=== PATIENT | male | born 1955 | race Caucasian/White ===

== ENCOUNTER → 2017-07-04 | Outpatient (CLI) | payer OTHER ==
[~2017-07-04] MED LIST: ALBU5SOL10 IH; ASP325T; ASP325TEC PO; ASP81CT; ASP81TEC PO; FLUT1DIS26 IH; FRSM40T; FURO-124 PO; FURO80TA3; LEVO500T69 PO; METH4TAB PO; METO-333 PO; MTP25TSR; PANT40TA PO; PRAV40TA PO; PRV20T PO; ROSU20TA14 PO; SIMV40TA2; SIMVASTATIN; TICA90TA PO
== END ==
LOC: CARD 08:36
PROVIDERS: ATTEND Physician Assistant
DX: I25.10 Atherosclerotic heart disease of native coronary artery without angina pectoris (principal); I65.23 Occlusion and stenosis of bilateral carotid arteries; I10 Essential (primary) hypertension; E78.2 Mixed hyperlipidemia
CPT/HCPCS: 93306

== ENCOUNTER → 2017-07-06 | Outpatient (CLI) | payer OTHER ==
[~2017-07-06] VITALS: Ht 172.7 cm; Wt 105.2 kg
[~2017-07-06] MED LIST changes: +CATHETER FLUSH 10 ML SYR IV PRN
[2017-07-06 12:51] VITALS: BP 115/70
[2017-07-06 13:04] VITALS: BP 122/66
[2017-07-06 13:15] VITALS: BP 211/90
[2017-07-06 13:18] VITALS: BP 221/87
[2017-07-06 13:21] VITALS: BP 217/62
[2017-07-06 13:25] VITALS: BP 167/86
--- NOTE | 2017-07-07 08:45 | STRESS TEST ---
DATE OF SERVICE: 07/06/2017 EXERCISE MYOVIEW STRESS TEST: Baseline heart rate is 72. Baseline blood pressure 115/70, baseline EKG is sinus rhythm with no ischemic changes. Referring physician is Dr. Ayala. IN SUMMARY: The patient was injected with 10.2 mCi of technetium-99 Myoview and the resting images were obtained. Then, the patient started exercising with a baseline heart rate, blood pressure and EKG mentioned above. At minute 5 patient was injected with 32.8 mCi of technetium-99 Myoview. He was able to exercise for a total of 6 minutes on standard Bonifacio protocol with peak exercise level EKG was showing [address] depression in V4, V5; [address] depression in V3 and V6; [address] depression in lead 2 and 3. During recovery, heart rate, blood pressure returned to baseline. EKG continued to have nondiagnostic changes. Blood pressure at the end of the test was 167/86. The resting and stressed images were reviewed and compared in the short axis, horizontal long axis, and vertical long axis views. Review of the images showed diaphragmatic attenuation with reversible ischemia involving the mid to apical anterolateral and inferolateral wall. SSS is 3, SDS three, TID value 0.87. On the gaited images, the left ventricle appeared to be normal size with normal contractility. Calculated ejection fraction 66%. CONCLUSION: 1. Fair exercise tolerance a total of 6 minutes on standard Bonifacio protocol, total of 7.3 METS achieving 92% of maximum expected heart rate. 2. Severe hypertensive response to exercise returned to baseline during recovery. 3. Positive EKG finding with peak exercise level suggestive of ischemia with nondiagnostic changes during recovery. 4. Mild reversible ischemia involving the mid to apical anterolateral and inferolateral wall. 5. Normal left ventricular size with normal contractility. Calculated ejection fraction 66%. 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
== END ==
LOC: CARD 11:10
PROVIDERS: ATTEND Physician Assistant
DX: I25.10 Atherosclerotic heart disease of native coronary artery without angina pectoris (principal); I65.23 Occlusion and stenosis of bilateral carotid arteries; I10 Essential (primary) hypertension; E78.2 Mixed hyperlipidemia
CPT/HCPCS: 78452; 93017

== ENCOUNTER → 2018-02-14 | Outpatient (CLI) | payer OTHER ==
[~2018-02-14] MED LIST changes: +ATOR40TA PO; -CATHETER FLUSH 10 ML SYR IV PRN; +HYDR12.5 PO; +LISI-556 PO; +METF500T5 PO
== END ==
LOC: LAB 13:36
PROVIDERS: ATTEND Family Medicine
DX: Z80.3 Family history of malignant neoplasm of breast (principal)

== ENCOUNTER 2018-04-14 10:00 | Outpatient (CLI) | payer OTHER ==
[~2018-04-14] VITALS: Ht 172.7 cm; Wt 107.0 kg
[~2018-04-14 10:00] MED LIST changes: +ASPI-999 PO; +LISI10TA2 PO; +METF-397 PO; -METF500T5 PO; +PANT40TA3 PO; +RT-ALBUINH IH; +TIOT4MIS3 IH
== END 2018-04-14 10:18 | disposition home or self-care (01) ==
LOC: PREOP 10:00
PROVIDERS: ATTEND Surgery
DX: Z01.818 Encounter for other preprocedural examination (principal)

== ENCOUNTER 2018-04-19 10:29 | Day surgery (SDC) | payer OTHER ==
[~2018-04-19] VITALS: Ht 172.7 cm; Wt 107.0 kg
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
[2018-04-19] MEDS ORDERED: NS IV 500 ML 500 ML IV PRN (10:37)
[2018-04-19] MEDS ORDERED: fentaNYL INJECTION 100 MCG/2 ML AMP IVP ONE (10:45)
[2018-04-19] MEDS ORDERED: MIDAZOLAM 2 MG/2 ML (VERSED) VIAL IVP ONE (10:45)
[2018-04-19] MEDS ORDERED: LIDOCAINE JELLY 2% (XYLOCAINE) 30 ML TUBE TOP PRN (11:00)
[2018-04-19 11:03] VITALS: BP 168/102
--- NOTE | 2018-04-19 11:04 | Conscious Sedation/ASA ---
Conscious Sedation Pre-Proced Time 11:00 ASA Score 2 For ASA 3 and 4: Consider anesthesia and medical clearance. Also, for patients with a history of failed moderate sedation consider anesthesia. Airway Lungs Heart ASA score ASA 1: a normal healthy patient ASA 2: a patient with a mild systemic disease (mid diabetes, controlled hypertension, obesity ASA 3: a patient with a severe systemic disease that limits activity (angina , COPD, prior Myocardial infarction) ASA 4: a patient with an incapacitating disease that is a constant threat to life (CHF, renal failure) ASA 5: a moribund patient not expected to survive 24 hrs. (ruptured aneurysm) ASA 6: a declared brain patient whose organs are being harvested. For emergent operations, add the letter E after the classification Mallampati Classification Grade 2 Sedation Plan Analgesia, Amnesia, Plan communicated to team members, Discussed options with patient/fam, Discussed risks with patient/fam The patient is an appropriate candidate to undergo the planned procedure, sedation, and anesthesia. The patient immediately re-assessed prior to indication. KASHIF GARCIAS MD Apr 19, 2018 11:04 am
--- NOTE | 2018-04-19 11:04 | Progress Note-Pre Operative ---
Pre-Operative Progress Note H&P Reviewed The H&P was reviewed, patient examined and no changes noted. Date Seen by Provider: Apr 19, 2018 Time Seen by Provider: 11:00 Date H&P Reviewed: Apr 19, 2018 Time H&P Reviewed: 11:00 Pre-Operative Diagnosis: high risk screening colonoscopy KASHIF GARCIAS MD Apr 19, 2018 11:04 am
[2018-04-19] MEDS ORDERED: morphine INJ 10 MG/ML 1ML (SYR OR VIAL) IV PRN (11:15)
[2018-04-19] MEDS ORDERED: ACETAMINOPHEN 325 MG TABLET PO PRN (11:15)
[2018-04-19] MEDS ORDERED: HYDROcodone/APAP 5 MG/325 MG (LORTAB) TAB PO PRN (11:15)
[2018-04-19] MEDS ORDERED: ONDANSETRON 4 MG/2 ML (SDV) Z0FRAN IV PRN (11:15)
[2018-04-19] MEDS ORDERED: MIDAZOLAM 2 MG/2 ML (VERSED) VIAL ONE ×8 (13:15→15:34)
[2018-04-19] MEDS ORDERED: fentaNYL INJECTION 100 MCG/2 ML AMP ONE ×3 (13:15→14:44)
[2018-04-19] MEDS ORDERED: LIDOCAINE JELLY 2% (XYLOCAINE) 30 ML TUBE ONE (13:16)
--- NOTE | 2018-04-19 16:01 | Progress Note-Post Operative ---
Post-Operative Progess Note Surgeon (s)/Backend Developer (s) Surgeon KASHIF GARCIAS MD Backend Developer: none Pre-Operative Diagnosis high risk screening colonoscopy Post-Operative Diagnosis mild sigmoid diverticulosis, small HP polyp splenic flexure. Procedure & Operative Findings Date of Procedure 04/19/18 Procedure Performed/Findings Colonoscopy with bx. Anesthesia Type CS Estimated Blood Loss Estimated blood loss (mL): minimal Specimens/Packing Specimens Removed splenic flexure polyp KASHIF GARCIAS MD Apr 19, 2018 4:01 pm
--- NOTE | 2018-04-19 16:02 | Discharge Inst-Surgical ---
D/C Lap Instructions-DIETER Follow Up 5 or 10 years. Activity as tolerated High Fiber Diet 25g or more per day Avoid Alcohol, Caffeine, Spicy [place] and Acid foods. Drink 64 fluid oz or more of fluids per day. Symptoms to Report: Fever over 101 degree F, Nausea/Vomiting If any problems/questions: Contact your physician or go to Emergency Room KASHIF GARCIAS MD Apr 19, 2018 4:02 pm
[2018-04-19 16:20] VITALS: BP 147/79
[2018-04-19 16:45] VITALS: BP 137/74
[2018-04-19 16:47] VITALS: BP 137/74
--- NOTE | 2018-04-19 23:24 | OPERATIVE REPORT ---
DATE OF SERVICE: 04/19/2018 ATTENDING PRIMARY CARE PHYSICIAN: Petra Ayala DO PREOPERATIVE DIAGNOSIS: Screening colonoscopy. POSTOPERATIVE DIAGNOSES: Mild sigmoid diverticulosis, small polyp of the splenic flexure. PROCEDURE: Colonoscopy with biopsy. SURGEON: Kashif Gacrias MD ANESTHESIA: Conscious sedation. ESTIMATED BLOOD LOSS: Minimal. FINDINGS: No significant hemorrhoids identified. Prostate gland was palpable and appeared normal. There was a small polyp of the splenic flexure approximately 2 mm in size, which appeared to be a benign hyperplastic polyp. There was a mild sigmoid diverticulosis. Remainder of the colon was normal. DISPOSITION: The patient tolerated the procedure well. INDICATIONS: The patient is a 62-year-old male in need of a screening colonoscopy. He has not had a colonoscopy up to this point in his life. He does not report any red blood per rectum nor any dark tarry stools, and does not report any family history of colon cancer. He does have a family history of other cancers as well as BRCA1 gene. DESCRIPTION OF PROCEDURE: The patient was brought to the endoscopy suite, laid in left lateral decubitus position. After adequate IV pain sedative medications and conscious sedation anesthesia, a digital rectal examination was performed. No significant hemorrhoids were identified. Normal sphincter tone was felt and there were no palpable masses. Prostate gland was palpable and appeared normal. The endoscope was then intubated into the anus and the rectum gently insufflated. The endoscope was then advanced to the valves of Tyler of the rectum with no polyps or any neoplasms identified. The endoscope was then advanced to the sigmoid colon where very mild sigmoid diverticulosis identified. We then proceeded to remainder of the descending colon and at the splenic flexure, small hyperplastic polyp approximately 2 mm in size was identified. This was biopsied and destroyed using forceps and electrocautery with visualization of good hemostasis. The endoscope was then advanced to the remainder of the transverse colon, descending colon to the cecum and these segments of colon were normal. The endoscope was then slowly withdrawn while taking a second look and suctioning of residual air with no additional findings. The patient tolerated the procedure well. We will recommend a high-fiber diet with at least 30 grams of fiber per day as well as at least 64 fluid ounces of water daily to promote soft stools on a daily basis. He does have a family history of BRCA1 gene and multiple different types of cancers; however, he has not been tested himself. He may want to get tested for the BRCA1 gene due to the increased risk of other cancers including prostate cancer. There is also an autosomal dominant motor transmission and there is a 50% chance that he does or does not have the genetic mutation. Either way, we will offer him a colonoscopy as frequent as he would like. Job ID: [id number] DocumentID: [id number] Dictated Date: 04/19/2018 15:58:16 Pbx Teacher Date: 04/19/2018 22:36:29 Dictated By: KASHIF GARCIAS MD MTDD
== END 2018-04-19 16:50 | disposition home or self-care (01) ==
LOC: ENDO 10:29
PROVIDERS: ATTEND Surgery
DX: Z12.11 Encounter for screening for malignant neoplasm of colon (principal); K57.30 Diverticulosis of large intestine without perforation or abscess without bleeding; K63.5 Polyp of colon; I25.10 Atherosclerotic heart disease of native coronary artery without angina pectoris; E78.00 Pure hypercholesterolemia, unspecified; G47.33 Obstructive sleep apnea (adult) (pediatric); E11.9 Type 2 diabetes mellitus without complications; J43.9 Emphysema, unspecified; Z79.82 Long term (current) use of aspirin; Z79.4 Long term (current) use of insulin; Z79.899 Other long term (current) drug therapy; Z80.1 Family history of malignant neoplasm of trachea, bronchus and lung; Z80.41 Family history of malignant neoplasm of ovary

== ENCOUNTER 2018-05-07 14:54 | Observation (INO) | payer OTHER ==
[~2018-05-07] VITALS: Ht 172.7 cm; Wt 105.8 kg
[2018-05-07] VITALS (7 sets, daily range): BP systolic 119–156; BP diastolic 66–101
[2018-05-07] MEDS ORDERED: ASPIRIN 81 MG CHEW (CHILDREN'S ASA) PO ONE (15:30)
[2018-05-07 15:49] LABS: BASOPHILS % (AUTO) 0 % (0-10); EOSINOPHILS # (AUTO) 0.2 10^3/uL (0.0-0.3); EOSINOPHILS % (AUTO) 3 % (0-10); HEMATOCRIT 45 % (40-54); LYMPHOCYTES # (AUTO) 1.8 X 10^3 (1.0-4.0); LYMPHOCYTES % (AUTO) 26 % (12-44); MEAN CORPUSCULAR HEMOGLOBIN 31 PG (25-34); MEAN CORPUSCULAR HGB CONC 35 G/DL (32-36); MEAN CORPUSCULAR VOLUME 87 FL (80-99); MEAN PLATELET VOLUME 10.1 FL (7.4-10.4); MONOCYTES # (AUTO) 0.7 X 10^3 (0.0-1.0); MONOCYTES % (AUTO) 11 % (0-12); NEUTROPHILS # (AUTO) 4.2 X 10^3 (1.8-7.8); NEUTROPHILS % (AUTO) 60 % (42-75); PLATELET COUNT 204 10^3/uL (130-400); RED BLOOD COUNT 5.24 10^6/uL (4.35-5.85); RED CELL DISTRIBUTION WIDTH 13.1 % (10.0-14.5); WHITE BLOOD COUNT 6.9 10^3/uL (4.3-11.0)
[2018-05-07 16:06] LABS: INR 1.1 (0.8-1.4); PROTHROMBIN TIME PATIENT 14.1 SEC (12.2-14.7)
[2018-05-07 16:09] LABS: ALANINE AMINOTRANSFERASE 83 U/L (0-55); ALBUMIN 4.2 GM/DL (3.2-4.5); ALKALINE PHOSPHATASE 81 U/L (40-136); BILIRUBIN,TOTAL 0.8 MG/DL (0.1-1.0); BUN/CREATININE RATIO 15; CALCIUM 10.4 MG/DL (8.5-10.1); CARBON DIOXIDE 21 MMOL/L (21-32); CHLORIDE 106 MMOL/L (98-107); CREATININE SERUM 1.19 MG/DL (0.60-1.30); GFR ESTIMATED > 60; GLUCOSE 115 MG/DL (70-105); MAGNESIUM 2.1 MG/DL (1.8-2.4); POTASSIUM 3.8 MMOL/L (3.6-5.0); SODIUM 140 MMOL/L (135-145); TOTAL PROTEIN 7.6 GM/DL (6.4-8.2)
--- NOTE | 2018-05-07 16:11 | Diagnostic Imaging Report ---
INDICATION: Complains of burning sensation to back. COMPARISON: 07/11/2017. EXAMINATION: Single view of the chest was obtained. FINDINGS: Median sternotomy changes are again noted. Mild hyperaeration is present. There is minimal scarring of the left lung base. The lungs are otherwise clear. No pulmonary edema. No hilar adenopathy. No pneumothorax. No bony abnormalities. IMPRESSION: Obstructive interstitial lung disease without acute changes. Dictated by: Dictated on workstation # [id number]
[2018-05-07 16:15] LABS: MYOGLOBIN SERUM 62.4 NG/ML (10.0-92.0)
[2018-05-07 16:29] LABS: BILIRUBIN,URINE NEGATIVE (NEGATIVE); CLARITY,URINE CLEAR; COLOR,URINE YELLOW; GLUCOSE, URINE (UA) NEGATIVE (NEGATIVE); KETONES,URINE NEGATIVE (NEGATIVE); LEUKOCYTE ESTERASE ,URINE 1+ (NEGATIVE); NITRITE,URINE NEGATIVE (NEGATIVE); PH,URINE 5 (5-9); PROTEIN,URINE 1+ (NEGATIVE); UROBILINOGEN,URINE NORMAL (NORMAL)
[2018-05-07] MEDS ORDERED: NITROGLYCERIN 0.4 MG SL TABS BTL 25'S SL PRN ×2 (16:45→18:00)
[2018-05-07 16:47] LABS: BACTERIA,URINE NEGATIVE /HPF; HYALINE CASTS, URINE 0-2 /LPF; WBC,URINE 0-2 /HPF
--- NOTE | 2018-05-07 17:24 | ED Chest Pain ---
General Chief Complaint: Neurological Problems Stated Complaint: DISORIENTED,NECK PAIN,HAND PAIN Nursing Triage Note: TO ROOM ACCOMPIED BY . 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 ON ADMIT ALL SYMPTMS RESOLVED. Nursing Sepsis Screen: No Definite Risk Source: patient, old records Exam Limitations: no limitations History of Present Illness Date Seen by Provider: May 07, 2018 Time Seen by Provider: 15:12 Initial Comments This 62-year-old gentleman presents to the emergency room after having an episode at home. He had gone to the restroom to urinate. He finished and then suddenly felt like he had to go again. While he was in the restroom attempting to urinate again he suddenly began having burning in the back of his neck and in the hands. He felt lightheaded and developed tingling in the hands as well. He felt disoriented briefly after that. He denies any dysuria but has had some urinary frequency. During the episode he also experienced some chest pressure and some diaphoresis that is is now gone. He is diabetic but only takes metformin. He does have known coronary artery disease and has had CABG and stent placement after CABG. His last cardiac catheter was in June 2017. Patient is concerned because he has had TIAs in the past and he is wondering if he is having another neurologic event. Allergies and Home Medications Allergies Coded Allergies: Penicillins (Verified Allergy, Mild, 04/19/18) Home Medications Albuterol Sulfate 1 Puff Puff, 2 PUFF IH Q4H PRN for SHORTNESS OF BREATH, ( Reported) 1 PUFF = 90 MCG Aspirin 81 Mg Tab.chew, 81 MG PO DAILY, (Reported) Atorvastatin Calcium 40 Mg Tablet, 40 MG PO DAILY, (Reported) Lisinopril 10 Mg Tablet, 10 MG PO DAILY, (Reported) Metformin HCl 500 Mg Tablet, 500 MG PO DAILY, (Reported) Metoprolol Tartrate 25 Mg Tablet, 25 MG PO BID, (Reported) Pantoprazole Sodium 40 Mg Tablet.dr, 40 MG PO DAILY, (Reported) Tiotropium Br/Olodaterol HCl 4 Gm Mist.inhal, 2 PUFF IH DAILY, (Reported) Patient Home Medication List Home Medication List Reviewed: Yes Review of Systems Review of Systems Constitutional: see HPI EENTM: No Symptoms Reported Respiratory: No Symptoms Reported Cardiovascular: See HPI Gastrointestinal: No Symptoms Reported Genitourinary: See HPI Musculoskeletal: no symptoms reported Skin: no symptoms reported Psychiatric/Neurological: See HPI Endocrine: No Symptoms Reported Hematologic/Lymphatic: No Symptoms Reported Past Bgtylpd-Grjzbl-Iiyznd Hx Past Med/Social Hx: Reviewed and Corrections made Patient Social History Alcohol Use: Denies Use Recreational Drug Use: No Smoking Status: Former Smoker Type Used: Cigarettes Former Smoker, Quit: Jul 11, 2008 Recent Foreign Travel: No Contact w/Someone Who Travel: No Recent Infectious Disease Expo: No Recent Hopitalizations: No Immunizations Up To Date Date of Pneumonia Vaccine: May 10, 2016 Date of Influenza Vaccine: Jul 11, 2017 Seasonal Allergies Seasonal Allergies: Yes Past Medical History Surgeries: Yes (shouolder bilat, hiatal hernia x3.lower herniax2,torn meniscus left) CABG, Coronary Stent Respiratory: Yes Sleep Apnea, COPD Currently Using CPAP: Yes Cardiac: Yes Coronary Artery Disease, High Cholesterol, Hypertension Neurological: Yes TIA Reproductive Disorders: No Sexually Transmitted Disease: No HIV/AIDS: No Gastrointestinal: No Musculoskeletal: Yes (arthritis on hands) Arthritis Endocrine: Yes Diabetes, Non-Insulin dep Loss of Vision: Bilateral Hearing Impairment: Hard of Hearing, Bilateral Hearing Aide Cancer: No Psychosocial: No Integumentary: No Blood Disorders: No Adverse Reaction/Blood Tranf: No (N/A) Physical Exam Vital Signs Vital Signs - First Documented 05/07/18 14:57 Temp 98.8 Pulse 65 Resp 18 B/P (MAP) 151/97 (115) Pulse Ox 94 O2 Delivery Room Air Capillary Refill : Less Than 3 Seconds Height, Weight, BMI Height: 5'8.00" Weight: 236lbs. 0.0oz. 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, Other (Normal heel to guerrier and finger to nose) Skin: Normal Color, Warm/Dry Progress/Results/Core Measures Results/Orders Lab Results Laboratory Tests Test 05/07/18 15:42 05/07/18 16:22 Range/Units White Blood Count 6.9 4.3-11.0 10^3/uL Red Blood Count 5.24 4.35-5.85 10^6/uL Hemoglobin 16.0 13.3-17.7 G/DL Hematocrit 45 40-54 % Mean Corpuscular Volume 87 80-99 FL Mean Corpuscular Hemoglobin 31 25-34 PG Mean Corpuscular Hemoglobin Concent 35 32-36 G/DL Red Cell Distribution Width 13.1 10.0-14.5 % Platelet Count 204 130-400 10^3/uL Mean Platelet Volume 10.1 7.4-10.4 FL Neutrophils (%) (Auto) 60 42-75 % Lymphocytes (%) (Auto) 26 12-44 % Monocytes (%) (Auto) 11 0-12 % Eosinophils (%) (Auto) 3 0-10 % Basophils (%) (Auto) 0 0-10 % Neutrophils # (Auto) 4.2 1.8-7.8 X 10^3 Lymphocytes # (Auto) 1.8 1.0-4.0 X 10^3 Monocytes # (Auto) 0.7 0.0-1.0 X 10^3 Eosinophils # (Auto) 0.2 0.0-0.3 10^3/uL Basophils # (Auto) 0.0 0.0-0.1 10^3/uL Prothrombin Time 14.1 12.2-14.7 SEC INR Comment 1.1 0.8-1.4 Activated Partial Thromboplast Time 24 24-35 SEC Sodium Level 140 135-145 MMOL/L Potassium Level 3.8 3.6-5.0 MMOL/L Chloride Level 106 98-107 MMOL/L Carbon Dioxide Level 21 21-32 MMOL/L Anion Gap 13 5-14 MMOL/L Blood Urea Nitrogen 18 7-18 MG/DL Creatinine 1.19 0.60-1.30 MG/DL Estimat Glomerular Filtration Rate > 60 BUN/Creatinine Ratio 15 Glucose Level 115 H 70-105 MG/DL Calcium Level 10.4 H 8.5-10.1 MG/DL Corrected Calcium 10.2 H 8.5-10.1 MG/DL Magnesium Level 2.1 1.8-2.4 MG/DL Total Bilirubin 0.8 0.1-1.0 MG/DL Aspartate Amino Transf (AST/SGOT) 42 H 5-34 U/L Alanine Aminotransferase (ALT/SGPT) 83 H 0-55 U/L Alkaline Phosphatase 81 40-136 U/L Myoglobin 62.4 10.0-92.0 NG/ML Troponin I < 0.30 <0.30 NG/ML Total Protein 7.6 6.4-8.2 GM/DL Albumin 4.2 3.2-4.5 GM/DL Urine Color YELLOW Urine Clarity CLEAR Urine pH 5 5-9 Urine Specific Currie 1.025 H 1.016-1.022 Urine Protein 1+ H NEGATIVE Urine Glucose (UA) NEGATIVE NEGATIVE Urine Ketones NEGATIVE NEGATIVE Urine Nitrite NEGATIVE NEGATIVE Urine Bilirubin NEGATIVE NEGATIVE Urine Urobilinogen NORMAL NORMAL MG/DL Urine Leukocyte Esterase 1+ H NEGATIVE Urine RBC (Auto) NEGATIVE NEGATIVE Urine RBC NONE /HPF Urine WBC 0-2 /HPF Urine Crystals NONE /LPF Urine Bacteria NEGATIVE /HPF Urine Casts PRESENT /LPF Urine Hyaline Casts 0-2 H /LPF Urine Mucus LARGE H /LPF Urine Culture Indicated NO My Orders Orders - RAJESH VILLA MD Cbc With Automated Diff (05/07/18:) Magnesium (05/07/18:) Chest 1 View, Ap/Pa Only (05/07/18:) Ekg Tracing (05/07/18:) Cardiac Profile 1 (05/07/18:) Comprehensive Metabolic Panel (05/07/18:) Myoglobin Serum (05/07/18:) Protime With Inr (05/07/18) Partial Thromboplastin Time (05/07/18:) O2 (05/07/18:) Monitor-Rhythm Ecg Trace Only (05/07/18:) Lipid Panel (05/08/18 06:00) Aspirin Chewable Tablet (Baby Aspirin Ch (05/07/18 15:30) Saline Lock/Iv-Start (05/07/18:) Ua Culture If Indicated (10/14/18 15:21) Ekg Tracing (05/07/18 16:14) Nitroglycerin 0.4 Mg Btl 25's (Nitrostat (05/07/18 16:45) Medications Given in ED Current Medications Medications Dose Ordered Sig/Akshat Route Start Time Stop Time Status Last Admin Dose Admin Aspirin 243 mg ONCE ONCE PO 05/07/18 15:30 05/07/18 15:31 DC 05/07/18 15:46 243 MG Nitroglycerin 0.4 mg UD PRN SL 05/07/18 16:45 05/07/18 16:42 0.4 MG Vital Signs/I&O 05/07/18 05/07/18 05/07/18 14:57 15:31 16:17 Temp 98.8 Pulse 65 69 68 72 71 Resp 18 18 B/P (MAP) 151/97 (115) 156/87 (110) 152/86 (108) 151/101 (118) 147/86 (106) Pulse Ox 94 97 O2 Delivery Room Air Room Air Blood Pressure Mean: 108 Progress Progress Note : Progress Note Patient was given the balance of his aspirin dose. Patient had a recurrence of chest pressure while in the ER. Nitroglycerin 2 was administered which relieved his pain from a 4/10 down to 0/10. Case was discussed with Dr. Ravi who agrees with admission for cardiac rule out. He requested aspirin and beta clemencia be given. Patient already takes metoprolol as part of his home regimen. EKG #1: EKG Time: 15:22 Rate: 70 Rhythm: Normal Sinus Intervals: Normal Comment Normal sinus rhythm with no diagnostic ST elevation or depression. No abnormal intervals or axis deviation. Nonspecific ST changes. EKG #2: EKG Time: 16:15 Rate: 72 Rhythm: Normal Sinus Intervals: Normal Comment Normal sinus rhythm with no diagnostic ST elevation or depression. No abnormal intervals or axis deviation. Nonspecific ST changes. Diagnostic Imaging Diagonstic Imaging: Xray Plain Films/CT/US/NM/MRI: chest Comments NAME: MARIA D HIGHTOWER MED REC#: [id number] PT STATUS: REG ER : 1955 PHYSICIAN: RAJESH VILLA MD ADMIT DATE: 05/07/18/ER Signed Date of Exam: 05/07/18 CHEST 1 VIEW, AP/PA ONLY INDICATION: Complains of burning sensation to back. COMPARISON: 07/11/2017. EXAMINATION: Single view of the chest was obtained. FINDINGS: Median sternotomy changes are again noted. Mild hyperaeration is present. There is minimal scarring of the left lung base. The lungs are otherwise clear. No pulmonary edema. No hilar adenopathy. No pneumothorax. No bony abnormalities. IMPRESSION: Obstructive interstitial lung disease without acute changes. Dictated by: Dictated on workstation # [id number] Dict: 05/07/18 1602 Trans: 05/07/18 170 Interpreted by: BEBE TODD MD Electronically signed by: BEBE TODD MD 05/07/181700 Reviewed: Reviewed by Me Departure Communication (Admissions) Time/Spoke to Admitting Phy: 17:10 Dr. Stewart Time/Spoke to Consulting Phy: 17:05 Dr. Ravi Impression Primary Impression: Chest pain Qualified Codes: R07.9 - Chest pain, unspecified Additional Impression: Coronary artery disease Qualified Codes: I25.10 - Atherosclerotic heart disease of [place] coronary artery without angina pectoris Disposition: ADMITTED INPATIENT Condition: Improved Admissions Decision to Admit Reason: Admit from ER (General) Decision to Admit/Date: May 07, 2018 Time/Decision to Admit Time: 17:05 Departure-Patient Inst. Referrals: YENI RUVALCABA DO (PCP/Family) Primary Care Physician RAJESH VILLA MD May 07, 2018 17:24
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
[2018-05-07] MEDS ORDERED: ENOXAPARIN 40 MG/0.4 ML (LOVENOX) SYR SC SCH (18:00)
[2018-05-07] MEDS ORDERED: RT-ALBUTEROL SULF 2.5 MG/3 ML PRE-MIX VIAL IH PRN (18:15)
[2018-05-07] MEDS ORDERED: ENOXAPARIN 40 MG/0.4 ML (LOVENOX) SYR ONE (18:20)
[2018-05-07] MEDS ORDERED: CATHETER FLUSH 10 ML SYR IV PRN (20:15)
[2018-05-07] MEDS: meTOprolol TARTRATE 25 MG (LOPRESSOR) TABLET PO SCH (20:28)
[2018-05-07] MEDS: morphine INJ 4 MG/ML 1 ML (VIAL/SYRINGE) IVP PRN ×2 (20:29→21:43)
[2018-05-07] MEDS: CATHETER FLUSH 10 ML SYR IV SCH (20:29)
[2018-05-07 22:23] LABS: CREATINE KINASE 138 U/L (30-200)
[2018-05-08] VITALS (10 sets, daily range): BP systolic 115–177; BP diastolic 62–110
[2018-05-08] MEDS: morphine INJ 4 MG/ML 1 ML (VIAL/SYRINGE) IVP PRN (03:23)
[2018-05-08 04:16] LABS: CHOLESTEROL 154 MG/DL (< 200); HDL CHOLESTEROL 30 MG/DL (40-60); TRIGLYCERIDES 192 MG/DL (<150); VLDL CHOLESTEROL 38 MG/DL (5-40)
--- NOTE | 2018-05-08 06:14 | Pulmonary Consultation ---
History of Present Illness History of Present Illness Date of Consultation 05/08/18 06:08 Time Seen by Provider: 06:08 Date of Admission History of Present Illness 62yo with hx of TIA's, NIDDM, CAD with hx of CABG (last cath 07/10) presented to ED secondary to chest pressure and diaphoresis. PT also had numbness, and tingling in hands bilateral. Troponin x 2 is negative. Allergies and Home Medications Allergies Coded Allergies: Penicillins (Verified Allergy, Mild, 04/19/18) Home Medications Albuterol Sulfate 1 Puff Puff, 2 PUFF IH Q4H PRN for SHORTNESS OF BREATH, ( Reported) 1 PUFF = 90 MCG Aspirin 81 Mg Tab.chew, 81 MG PO DAILY, (Reported) Atorvastatin Calcium 40 Mg Tablet, 40 MG PO DAILY, (Reported) Lisinopril 10 Mg Tablet, 40 MG PO DAILY Prescribed by: YENI RUVALCABA on 05/08/18 1257 Metformin HCl 500 Mg Tablet, 500 MG PO DAILY, (Reported) Metoprolol Tartrate 25 Mg Tablet, 25 MG PO BID, (Reported) Pantoprazole Sodium 40 Mg Tablet.dr, 40 MG PO DAILY, (Reported) Tiotropium Br/Olodaterol HCl 4 Gm Mist.inhal, 2 PUFF IH DAILY, (Reported) Past Kknhkwm-Qfgokg-Vlnygz Hx Past Med/Social Hx: Reviewed and Corrections made Patient Social History Alcohol Use: Denies Use Recreational Drug Use: No Smoking Status: Former Smoker Type Used: Cigarettes Former Smoker, Quit: Jul 11, 2008 Recent Foreign Travel: No Contact w/Someone Who Travel: No Recent Infectious Disease Expo: No Recent Hopitalizations: No Immunizations Up To Date Date of Pneumonia Vaccine: May 10, 2016 Date of Influenza Vaccine: May 03, 2018 Seasonal Allergies Seasonal Allergies: Yes Past Medical History Surgeries: Yes (shouolder bilat, hiatal hernia x3.lower herniax2,torn meniscus left) CABG, Coronary Stent Respiratory: Yes Sleep Apnea, COPD Currently Using CPAP: Yes Cardiac: Yes Coronary Artery Disease, High Cholesterol, Hypertension Neurological: Yes TIA Reproductive Disorders: No Sexually Transmitted Disease: No HIV/AIDS: No Gastrointestinal: No Musculoskeletal: Yes (arthritis on hands) Arthritis Endocrine: Yes Diabetes, Non-Insulin dep Loss of Vision: Bilateral Hearing Impairment: Hard of Hearing, Bilateral Hearing Aide Cancer: No Psychosocial: No Integumentary: No Blood Disorders: No Adverse Reaction/Blood Tranf: No (N/A) Review of Systems Time Seen by Provider: 08:48 Sepsis Event Evaluation Height, Weight, BMI Height: 5'8.00" Weight: 233lbs. 5.0oz. 105.988637el; 35.5 BMI Method:Stated Exam Exam Vital Signs Date Time Temp Pulse Resp B/P (MAP) Pulse Ox O2 Delivery O2 Flow Rate FiO2 05/08/18 04:00 94 Room Air 05/08/18 04:00 65 14 122/82 (95) 94 Room Air 05/08/18 02:00 74 12 132/84 (100) 94 Room Air 05/08/18 01:00 78 15 115/62 (79) 95 Room Air 05/08/18 01:00 78 05/08/18 00:00 94 Room Air 05/08/18 00:00 85 28 121/83 (96) 92 Room Air 05/07/18 23:00 72 19 125/66 (85) 92 Room Air 05/07/18 22:00 64 20 129/75 (93) 94 Room Air 05/07/18 21:43 97.3 05/07/18 21:00 61 28 119/99 (106) 93 Room Air 05/07/18 21:00 93 Room Air 05/07/18 20:10 94 Room Air 05/07/18 20:00 94 Room Air 05/07/18 19:00 68 22 143/84 (103) 94 Room Air 05/07/18 19:00 74 05/07/18 18:22 70 05/07/18 18:20 97.3 73 20 140/81 (100) 94 Room Air 05/07/18 17:54 99 Room Air 05/07/18 17:44 66 18 152/97 (115) 94 05/07/18 16:17 68 18 152/86 (108) 97 Room Air 05/07/18 15:31 69 156/87 (110) 72 151/101 (118) 71 147/86 (106) 05/07/18 14:57 98.8 65 18 151/97 (115) 94 Room Air I & O 05/08/18 07:00 Intake Total 250 ml Balance 250 ml Height & Weight Height: 5'8.00" Weight: 233lbs. 5.0oz. 105.665600sv; 35.5 BMI Method:Stated General Appearance: No Apparent Distress, WD/WN HEENT: PERRL/EOMI, Normal ENT Inspection, Pharynx Normal Neck: Non Tender, Supple; No Carotid Bruit, No JVD Respiratory: Lungs Clear, Normal Breath Sounds, No Accessory Muscle Use, No Respiratory Distress Cardiovascular: Regular Rate, Rhythm, No Edema, No Murmur, Normal Peripheral Pulses Capillary Refill: Less Than 3 Seconds Extremity: Normal Inspection, No Pedal Edema Neurologic/Psychiatric: Alert, Oriented x3, No Motor/Sensory Deficits, Normal Mood/Affect, miller head II-XII Norm as Tested, Other (Normal heel to guerrier and finger to nose) Skin: Normal Color, Warm/Dry Results Lab Laboratory Tests 05/07/18 15:42 Assessment/Plan Assessment/Plan -CP r/o [facility] -Cardiology is following -Troponin is negative x 2 HX of COPD/emphysema -Ginny Echeverria -Last CT 03/09 shows bilateral upper lobe emphysema, no PE, no nodule RACHEL HANKINS DO May 08, 2018 06:14
[2018-05-08] MEDS: CATHETER FLUSH 10 ML SYR IV SCH ×2 (06:39→14:05)
[2018-05-08] MEDS ORDERED: metFORMIN 500 MG (GLUCOPHAGE) TAB PO SCH (07:00)
[2018-05-08] MEDS ORDERED: RT-ADVAIR HFA 115/21 MCG PER PUFF IH SCH (08:00)
[2018-05-08] MEDS: meTOprolol TARTRATE 25 MG (LOPRESSOR) TABLET PO SCH (08:21)
--- NOTE | 2018-05-08 08:35 | Consultation-Cardiology ---
HPI-Cardiology Cardiology Consultation Date of Consultation 05/08/18 Date of Admission Time Seen by Provider: 08:28 Indication: Chest pain, dizziness HPI 62 years old gentleman with extensive cardiac history, history of coronary artery disease, cardiac catheterization done in June 2017 showing small vessel disease, Patent stent in the LAD and occluded ZELAYA, patent vein graft, history of diabetes mellitus, hypertension hyperlipidemia. Patient was in his usual state of health until yesterday, reported that after micturition he had an episode of tingling in his fingers and having lightheadedness and diaphoresis. Near syncope. No full syncopal episode was reported. Patient reported that the episode lasted for about half an hour and he came into the emergency room for evaluation, upon arrival to the emergency room he started having chest pain, described it as tightness across his chest responded to one sublingual nitroglycerin, he was given additional sublingual nitroglycerin and felt better since then. No further episodes of chest pain, no previous episodes of chest pain. No full syncope was reported, admitted having mild shortness of breath. No palpitation. Home Medications & Allergies Allergies: Coded Allergies: Penicillins (Verified Allergy, Mild, 04/19/18) Home Medication List Reviewed: Yes FYU-Hrijkg-Wvkepi Hx Patient Social History Marital Status: Employed/Student: retired Alcohol Use: Denies Use Recreational Drug Use: No Smoking Status: Former Smoker Former smoker/When Quit: Jun 01, 2008 Type Used: Cigarettes Recent Foreign Travel: No Recent Infectious Disease Expo: No Recent Hopitalizations: No Physical Abuse Screen: No Sexual Abuse: No Immunizations Up To Date Date of Pneumonia Vaccine: May 10, 2016 Date of Influenza Vaccine: May 03, 2018 Past Medical History Past medical history as described below Family Medical History Family Medical Hx Noncontributory to his current condition Review of Systems Constitutional: see HPI, dizziness EENTM: see HPI, no symptoms reported Respiratory: see HPI; No cough; dyspnea on exertion; No hemoptysis, No orthopnea, No phlegm, No short of breath, No stridor, No wheezing, No other Cardiovascular: see HPI, chest pain; No edema, No Hx of Intervention, No palpitations, No syncope, No vascular heart diseas, No other Gastrointestinal: no symptoms reported, see HPI Genitourinary: no symptoms reported, see HPI Musculoskeletal: no symptoms reported, see HPI Skin: no symptoms reported, see HPI Psychiatric/Neurological: No Symptoms Reported, See HPI Reviewed Test Results Reviewed Test Results Lab Laboratory Tests Test 05/07/18 15:42 05/07/18 16:22 05/07/18 22:01 05/08/18 03:05 Range/Units White Blood Count 6.9 4.3-11.0 10^3/uL Red Blood Count 5.24 4.35-5.85 10^6/uL Hemoglobin 16.0 13.3-17.7 G/DL Hematocrit 45 40-54 % Mean Corpuscular Volume 87 80-99 FL Mean Corpuscular Hemoglobin 31 25-34 PG Mean Corpuscular Hemoglobin Concent 35 32-36 G/DL Red Cell Distribution Width 13.1 10.0-14.5 % Platelet Count 204 130-400 10^3/uL Mean Platelet Volume 10.1 7.4-10.4 FL Neutrophils (%) (Auto) 60 42-75 % Lymphocytes (%) (Auto) 26 12-44 % Monocytes (%) (Auto) 11 0-12 % Eosinophils (%) (Auto) 3 0-10 % Basophils (%) (Auto) 0 0-10 % Neutrophils # (Auto) 4.2 1.8-7.8 X 10^3 Lymphocytes # (Auto) 1.8 1.0-4.0 X 10^3 Monocytes # (Auto) 0.7 0.0-1.0 X 10^3 Eosinophils # (Auto) 0.2 0.0-0.3 10^3/uL Basophils # (Auto) 0.0 0.0-0.1 10^3/uL Prothrombin Time 14.1 12.2-14.7 SEC INR Comment 1.1 0.8-1.4 Activated Partial Thromboplast Time 24 24-35 SEC Sodium Level 140 135-145 MMOL/L Potassium Level 3.8 3.6-5.0 MMOL/L Chloride Level 106 98-107 MMOL/L Carbon Dioxide Level 21 21-32 MMOL/L Anion Gap 13 5-14 MMOL/L Blood Urea Nitrogen 18 7-18 MG/DL Creatinine 1.19 0.60-1.30 MG/DL Estimat Glomerular Filtration Rate > 60 BUN/Creatinine Ratio 15 Glucose Level 115 H 70-105 MG/DL Calcium Level 10.4 H 8.5-10.1 MG/DL Corrected Calcium 10.2 H 8.5-10.1 MG/DL Magnesium Level 2.1 1.8-2.4 MG/DL Total Bilirubin 0.8 0.1-1.0 MG/DL Aspartate Amino Transf (AST/SGOT) 42 H 5-34 U/L Alanine Aminotransferase (ALT/SGPT) 83 H 0-55 U/L Alkaline Phosphatase 81 40-136 U/L Myoglobin 62.4 10.0-92.0 NG/ML Troponin I < 0.30 < 0.30 <0.30 NG/ML Total Protein 7.6 6.4-8.2 GM/DL Albumin 4.2 3.2-4.5 GM/DL Urine Color YELLOW Urine Clarity CLEAR Urine pH 5 5-9 Urine Specific [place] 1.025 H 1.016-1.022 Urine Protein 1+ H NEGATIVE Urine Glucose (UA) NEGATIVE NEGATIVE Urine Ketones NEGATIVE NEGATIVE Urine Nitrite NEGATIVE NEGATIVE Urine Bilirubin NEGATIVE NEGATIVE Urine Urobilinogen NORMAL NORMAL MG/DL Urine Leukocyte Esterase 1+ H NEGATIVE Urine RBC (Auto) NEGATIVE NEGATIVE Urine RBC NONE /HPF Urine WBC 0-2 /HPF Urine Crystals NONE /LPF Urine Bacteria NEGATIVE /HPF Urine Casts PRESENT /LPF Urine Hyaline Casts 0-2 H /LPF Urine Mucus LARGE H /LPF Urine Culture Indicated NO Total Creatine Kinase 138 30-200 U/L Triglycerides Level 192 H <150 MG/DL Cholesterol Level 154 < 200 MG/DL LDL Cholesterol Direct 105 1-129 MG/DL VLDL Cholesterol 38 5-40 MG/DL HDL Cholesterol 30 L 40-60 MG/DL Physical Exam Vital Signs Vital Signs - First Documented 05/07/18 14:57 Temp 98.8 Pulse 65 Resp 18 B/P (MAP) 151/97 (115) Pulse Ox 94 O2 Delivery Room Air Capillary Refill : Less Than 3 Seconds Height, Weight, BMI Height: 5'8.00" Weight: 233lbs. 5.0oz. 105.652901ok; 35.5 BMI Method:Stated General Appearance: No Apparent Distress, WD/WN Eyes: Bilateral Eye Normal Inspection, Bilateral Eye PERRL, Bilateral Eye EOMI HEENT: PERRL/EOMI, TMs Normal, Normal ENT Inspection, Pharynx Normal Neck: Full Range of Motion, Normal Inspection, Non Tender, Supple, Carotid Bruit Respiratory: Chest Non Tender, Lungs Clear, Normal Breath Sounds, No Accessory Muscle Use, No Respiratory Distress Cardiovascular: Regular Rate, Rhythm, No Edema, No Gallop, No JVD, No Murmur, Normal Peripheral Pulses Gastrointestinal: Normal Bowel Sounds, No Organomegaly, No Pulsatile Mass, Non Tender, Soft Back: Normal Inspection, No CVA Tenderness, No Vertebral Tenderness Extremity: Normal Capillary Refill, Normal Inspection, Normal Range of Motion, Non Tender, No Calf Tenderness, No Pedal Edema Neurologic/Psychiatric: Alert, Oriented x3, No Motor/Sensory Deficits, Normal Mood/Affect Skin: Normal Color, Warm/Dry Lymphatic: No Adenopathy A/P-Cardiology Admission Diagnosis Chest pain, nonspecific etiology Dizziness and lightheadedness Coronary artery disease Hypertension Hyperlipidemia Assessment/Plan Chest pain nonspecific etiology, no EKG changes, cardiac enzymes were negative. Patient had a cardiac catheterization carried out in June 2017 showing patent stent in the LAD, known occluded ZELAYA, 50 percent ostial left main nonobstructive disease, patent vein grafts to the diagonal artery and right coronary artery, nondominant circumflex artery with small vessel disease. I recommend monitoring at this time, no changes are recommended. Episode of tingling in his fingers and dizziness after micturition, probably vasovagal episode that resolved spontaneously. No further episodes were reported. Continue to monitor at this time, he is maintained on lisinopril and metoprolol, was maintained on hydrochlorothiazide which was discontinued last week. Coronary artery disease history of CABG, last cardiac catheterization was done in June 2017, results described above. Continue to monitor History of TIA in the past. Resolved. No further episodes were reported. Continue to monitor Mild bilateral carotid stenosis, last ultrasound was done in February 2018. Continue to monitor Hypertension, poorly controlled today. Restart home medications and monitor. Hyperlipidemia, monitor lipids Diabetes mellitus, followed and managed by primary care physician Obesity, BMI 35, educated on weight loss and exercise. Patient is scheduled for thyroid ultrasound today, followed by Dr. Ayala. History of tobaccoism, stopped smoking in 2007. Patient is feeling better at this time. No further episodes of chest pain, EKG and cardiac enzymes were negative. I recommend monitoring as an outpatient, okay for discharge from cardiology standpoint. Follow-up as an outpatient Clinical Quality Measures DVT/VTE Risk/Contraindication: Risk Factor Score Per Nursin RFS Level Per Nursing on Admit: 4+=Very High NANCY ARREOLA MD May 08, 2018 08:35
[2018-05-08] MEDS ORDERED: PANTOPRAZOLE 40 MG (PROTONIX) TAB PO SCH (09:00)
[2018-05-08] MEDS ORDERED: NON-FORMULARY MEDICATION 1 EA EA (Tiotropium Br/Olodaterol HCl (Stiolto Respimat Inhal Spr IH SCH (09:00)
[2018-05-08] MEDS ORDERED: lisINopril 10 MG (PRINIVIL) TABLET PO SCH (09:00)
[2018-05-08] MEDS ORDERED: ATORVASTATIN 40 MG (LIPITOR) TABLET PO SCH (09:00)
[2018-05-08] MEDS ORDERED: ASPIRIN 81 MG CHEW (CHILDREN'S ASA) PO SCH (09:00)
[2018-05-08] MEDS ORDERED: ASPIRIN E.C. 81 MG (ECOTRIN) TAB PO SCH (09:00)
[2018-05-08] MEDS ORDERED: NON-FORMULARY MEDICATION 1 EA EA (Metformin HCl 500 MG) PO SCH (09:00)
[2018-05-08] MEDS ORDERED: LISI10TA2 PO (12:57)
--- NOTE | 2018-05-08 12:59 | Discharge Inst-Simple/Standard ---
Discharge Inst-Standard Discharge Medications New, Converted or Re-Newed RX: Other Patient Instructions/Follow Up Plan of Care/Instructions/FU: Fwup in 2 weeks Activity as Tolerated: Yes Discharge Diet: Cardiac Diet YENI RUVALCABA DO May 08, 2018 12:59 pm
== END 2018-05-08 14:07 | disposition home or self-care (01) ==
LOC: EDUNIT# 14:54 → ER 14:55 → UNDOADMOB 17:05 → ICU 17:05 → UNDODISOB 05-08 14:26
PROVIDERS: ADMIT Internal Medicine; ATTEND Internal Medicine
DX: R07.9 Chest pain, unspecified (principal); R42 Dizziness and giddiness; I25.10 Atherosclerotic heart disease of native coronary artery without angina pectoris; E11.9 Type 2 diabetes mellitus without complications; I10 Essential (primary) hypertension; E78.5 Hyperlipidemia, unspecified; I65.23 Occlusion and stenosis of bilateral carotid arteries; J43.9 Emphysema, unspecified; G47.30 Sleep apnea, unspecified; E66.9 Obesity, unspecified; Z68.35 Body mass index [BMI] 35.0-35.9, adult; Z86.73 Personal history of transient ischemic attack (TIA), and cerebral infarction without residual deficits; Z79.82 Long term (current) use of aspirin; Z79.84 Long term (current) use of oral hypoglycemic drugs; Z95.1 Presence of aortocoronary bypass graft; Z95.5 Presence of coronary angioplasty implant and graft; Z87.891 Personal history of nicotine dependence
CPT/HCPCS: 36415; 71045; 80053; 80061; 81000; 82550; 83735; 83874; 84484; 85025; 85610; 85730; 93005; 93041; 93306; 94640

== ENCOUNTER → 2018-05-15 | Outpatient (CLI) | payer OTHER ==
--- NOTE | 2018-05-15 08:48 | Diagnostic Imaging Report ---
PROCEDURE: US Thyroid. TECHNIQUE: Multiple real-time grayscale images were obtained of the thyroid in various projections. INDICATION: Abnormal thyroid labs. Right lobe of thyroid measures 4.4 x 2.1 x 1.4 cm and the left lobe measures 4.1 x 2.2 x 1.3 cm. Both lobes of the thyroid are heterogeneous in echotexture. No discrete thyroid mass is identified. IMPRESSION: Heterogeneous thyroid. No discrete thyroid mass is detected. Dictated by: Dictated on workstation # [id number]
== END ==
LOC: RAD 08:08
PROVIDERS: ATTEND Family Medicine
DX: E21.3 Hyperparathyroidism, unspecified (principal); R94.6 Abnormal results of thyroid function studies
CPT/HCPCS: 76536

== ENCOUNTER 2018-09-30 18:13 | Emergency (ER) | payer OTHER ==
[~2018-09-30] VITALS: Ht 172.7 cm; Wt 108.0 kg
--- OUTSIDE RECORDS SUMMARY | 2018-09-30 18:18 | XMS REPORT | Encounter Summary ---
Author Author [facility] Organization [facility] Address Unknown Phone Unavailable Care Team Providers Care Veterinary Practitioner Name Role Phone Petra Ayala MD PCP Encounter Details Care Team Description Date Type Department Shekhar Luis MD [address] [facility] [place] [address] 09/05/2018 Hospital [facility] Encounter [facility] [address]st [address] [place], [place] [id number] Social History Date Tobacco Use Types Packs/Day Years Used Quit: 2007 Former Smoker Cigarettes 1.5 40 Smokeless Tobacco: Never Used Alcohol Use Drinks/Week oz/Week Comments No Alcohol Habits Answer Date Recorded How often do you have a drink containing alcohol? Never 09/05/2018 How many drinks containing alcohol do you have on Not asked a typical day when you are drinking? How often do you have six or more drinks on one Not asked occasion? Sex Assigned at Date Recorded Not on file Industry Job Start Date Occupation Not on file Not on file Not on file Travel End Travel History Travel Start No recent travel history available. as of this encounter Medications at Time of Discharge Start Date End Date Medication Sig Dispensed Refills albuterol (PROAIR HFA) 90 Inhale 2 0 mcg/actuation inhaler puffs by mouth into the lungs every 6 hours as needed for Wheezing or Shortness of Breath. Shake well before use. aspirin 81 mg chewable Chew 81 mg by 0 tablet mouth daily. Take with food. atorvastatin (LIPITOR) 10 Take 10 mg by 0 mg tablet mouth at bedtime daily. levothyroxine (SYNTHROID) Take 25 mcg 0 25 mcg tablet by mouth daily 30 minutes before breakfast. lisinopril (PRINIVIL; Take 10 mg by 0 ZESTRIL) 10 mg tablet mouth daily. metFORMIN-XR(+) Take 500 mg 0 (GLUCOPHAGE XR) 500 mg by mouth extended release tablet daily. metoprolol XL (TOPROL XL) Take 25 mg by 0 25 mg extended release mouth twice tablet daily. pantoprazole DR Take 40 mg by 0 (PROTONIX) 40 mg tablet mouth daily. umeclidinium-vilanterol Inhale 2 0 (ANORO ELLIPTA) 62.5-25 puffs by mcg/actuation inhaler mouth into the lungs daily. as of this encounter Plan of Treatment Care Team Description Date Type Specialty Shekhar Luis MD [address] [place], [place] [id number] Hyperparathyroidism (HCC) 10/04/2018 Hospital Encounter Kaur Santana MD [address] [place] [address] 10/04/2018 Anesthesia Event Shekhar Luis MD [address] [place], [place] [phone] LEFT MINIMALLY INVASIVE PARATHYROIDECTOMY, POSSIBLE BILATERAL NECK EXPLORATION, VIA CENTRAL APPROACH, INTRAOPERATIVE RECURRENT LARYNGEAL NERVE MONITORING, INTRAOPERATIVE PARATHYROID HORMONE MONITORING 10/04/2018 Surgery as of this encounter Procedures Comments Procedure Name Priority Date/Time Associated Diagnosis POC CREATININE, RAD 09/05/2018 10:27 AM ASSISTED LIVING ADMINISTRATOR in this encounter Results * POC CREATININE, RAD (09/05/2018 10:27 AM ASSISTED LIVING ADMINISTRATOR) Creatinine, POC 1.1 0.4 - 1.24 MG/DL [facility] Performing Organization Address City/State/Zipcode Phone Number MAIN LAB [address] [place] [address] in this encounter Visit Diagnoses Not on filein this encounter
--- OUTSIDE RECORDS SUMMARY | 2018-09-30 18:18 | XMS REPORT | Encounter Summary ---
Author Author [facility] Organization [facility] Address Unknown Phone Unavailable Care Team Providers Care Audit Specialist Name Role Phone Petra Ayala MD PCP Reason for Visit * Reason Comments Surgery Encounter Details Care Team Description Date Type Department Shekhar Luis MD [address] [place] [address] [phone] Surgery 09/29/2018 Telephone [facility] - [address] [address] Social History Date Tobacco Use Types Packs/Day [...] travel history available. as of this encounter Miscellaneous Notes * Telephone Encounter - Kiya Kelley RN - 09/29/2018 1:49 PM PROTEIN SCIENTIST Kristian called to let me know that he has had pneumonia recently. He is going to see his PCP, Dr. Ayala this weekend to see if it has resolved. He will call me Tuesday to let me know if he needs to reschedule his surgery ( parathyroidectomy) next Tuesday (10/04). I told him that I would send Dr. Luis this message so he is aware of what is going on. EIN SCIENTIST in this encounter Plan of Treatment Care Team Description Date Type Specialty Shekhar Luis MD [address] [place], [place] [id number] Hyperparathyroidism (HCC) 10/04/2018 Hospital Encounter Kaur Santana MD [address] [place] [address] 10/04/2018 Anesthesia Event Shekhar Luis MD [address] [place] [address] LEFT MINIMALLY INVASIVE PARATHYROIDECTOMY, POSSIBLE BILATERAL NECK EXPLORATION, VIA CENTRAL APPROACH, INTRAOPERATIVE RECURRENT LARYNGEAL NERVE MONITORING, INTRAOPERATIVE PARATHYROID HORMONE MONITORING 10/04/2018 Surgery as of this encounter Visit Diagnoses Not on filein this encounter
--- OUTSIDE RECORDS SUMMARY | 2018-09-30 18:18 | XMS REPORT | Encounter Summary ---
Author Author [facility] Organization [facility] Address Unknown Phone Unavailable Care Team Providers Care Body Fitter Name Role Phone Petra Ayala MD PCP Encounter Details Care Team Description Date Type Department Shekhar Luis MD [address] [place], [place] [phone] Hyperparathyroidism (HCC) (Primary Dx) 09/05/2018 Prep for Case [facility] Exam [address] [address] Social History Date Tobacco Use Types Packs/Day [...] travel history available. as of this encounter Plan of Treatment Care Team Description Date Type Specialty Shekhar Luis MD [address] [place], [place] [phone] Hyperparathyroidism (HCC) 10/04/2018 Hospital Encounter Kaur Santana MD [address] [place] [address] [phone] 10/04/2018 Anesthesia Event Shekhar Luis MD [address] [place] [address] LEFT MINIMALLY INVASIVE PARATHYROIDECTOMY, POSSIBLE BILATERAL NECK EXPLORATION, VIA CENTRAL APPROACH, INTRAOPERATIVE RECURRENT LARYNGEAL NERVE MONITORING, INTRAOPERATIVE PARATHYROID HORMONE MONITORING 10/04/2018 Surgery as of this encounter Visit Diagnoses Diagnosis Hyperparathyroidism (HCC) - Primary Hyperparathyroidism, unspecified in this encounter
--- OUTSIDE RECORDS SUMMARY | 2018-09-30 18:18 | XMS REPORT | Encounter Summary ---
Author Author [facility] Organization [facility] Address Unknown Phone Unavailable Care Team Providers Care Triage Rn Name Role Phone Petra Ayala MD PCP Encounter Details Care Team Description Date Type Department Pina Lancaster APRN-MOLECULAR SPECTROSCOPIST [address] [address] 09/05/2018 Anesthesia Preoperative Assessment Event Clinic [address] [place], [place] [phone] Anesthesia Record Responsible Anesthesiologist Anesthesia Start Time Anesthesia Stop Time Procedure Name WALK IN/PAC No events on file. Meds * No agents on file. * No blood administrations on file. No LDAs on file. in this encounter Social History Date Tobacco Use Types Packs/Day Years Used Quit: 2008 Former Smoker Cigarettes 1.5 40 Smokeless Tobacco: [...] Description Date Type Specialty Shekhar Luis MD [address] [place], [place] [phone] Hyperparathyroidism (HCC) 10/04/2018 Hospital Encounter Kaur Santana MD [address] [address] [phone] 10/04/2018 Anesthesia Event Shekhar Luis MD [address] [place], [place] [phone] LEFT MINIMALLY INVASIVE PARATHYROIDECTOMY, POSSIBLE BILATERAL NECK EXPLORATION, VIA CENTRAL APPROACH, INTRAOPERATIVE RECURRENT LARYNGEAL NERVE MONITORING, INTRAOPERATIVE PARATHYROID HORMONE MONITORING 10/04/2018 Surgery as of this encounter Visit Diagnoses Not on filein this encounter
--- OUTSIDE RECORDS SUMMARY | 2018-09-30 18:18 | XMS REPORT | Encounter Summary ---
Author Author [facility] Organization [facility] Address Unknown Phone Unavailable Care Team Providers Care Skates Operator Name Role Phone Petra Ayala MD PCP Reason for Visit * Reason Comments Surgery Encounter Details Care Team Description Date Type Department Shekhar Luis MD [address] [place] [address] [phone] Surgery 09/18/2018 Telephone [facility] - [address] [phone] Social History Date Tobacco Use Types Packs/Day [...] Telephone Encounter - Kiya Kelley RN - 09/18/2018 3:49 PM CAR SALES REPRESENTATIVE Kristian left a voicemail this morning stating that he needs to reschedule his surgery on 09/21 because of some transportation issues. I told him that I would need to discuss a new date with Dr. Luis and call him back. He verbalized understanding. He asked if it could be between September 29-. I discussed a new OR date with Dr. Luis. He offered 10/04. I called Kristian back to discuss a new OR date. He was not home. His said that she will have him call me back. Kristian returned my call. I asked him if 10/04 would work for the new OR date. He said yes. We then rescheduled his post op date with lab. He verbalized understanding of the new appointment dates and times. SALES REPRESENTATIVE in this encounter Plan of Treatment Care Team Description Date Type Specialty Shekhar Luis MD [address] [place], [place] [phone] Hyperparathyroidism (HCC) 10/04/2018 Hospital Encounter Kaur Santana MD [address] [place] [id number] [place] [address] [phone] 10/04/2018 Anesthesia Event Shekhar Luis MD [address] [place] [address] [phone] LEFT MINIMALLY INVASIVE PARATHYROIDECTOMY, POSSIBLE BILATERAL NECK EXPLORATION, VIA CENTRAL APPROACH, INTRAOPERATIVE RECURRENT LARYNGEAL NERVE MONITORING, INTRAOPERATIVE PARATHYROID HORMONE MONITORING 10/04/2018 Surgery as of this encounter Visit Diagnoses Not on filein this encounter
--- OUTSIDE RECORDS SUMMARY | 2018-09-30 18:18 | XMS REPORT | Clinical Summary ---
Author Author [facility] Organization [facility] Address Unknown Phone Unavailable Care Team Providers Care Schedule Hanger Name Role Phone Petra Ayala MD PCP Source Comments Some departments are not documenting in the electronic medical record. If you do not see the information that you expected, contact Release of Information in the Health Information Management department at [phone] for further assistance in locating additional records.[facility] Allergies Comments Active Allergy Reactions Severity Noted Date Penicillins SEIZURES High 09/05/2018 Medications End Date Status Medication Sig Dispensed Refills Start Date Active aspirin 81 mg chewable Chew 81 mg by 0 tablet mouth daily. Take with food. Active metoprolol XL (TOPROL XL) Take 25 mg by 0 25 mg extended release mouth twice tablet daily. Active pantoprazole DR Take 40 mg by 0 (PROTONIX) 40 mg tablet mouth daily. Active atorvastatin (LIPITOR) 10 Take 10 mg by 0 mg tablet mouth at bedtime daily. Active lisinopril (PRINIVIL; Take 10 mg by 0 ZESTRIL) 10 mg tablet mouth daily. Active albuterol (PROAIR HFA) 90 Inhale 2 0 mcg/actuation inhaler puffs by mouth into the lungs every 6 hours as needed for Wheezing or Shortness of Breath. Shake well before use. Active metFORMIN-XR(+) Take 500 mg 0 (GLUCOPHAGE XR) 500 mg by mouth extended release tablet daily. Active umeclidinium-vilanterol Inhale 2 0 (ANORO ELLIPTA) 62.5-25 puffs by mcg/actuation inhaler mouth into the lungs daily. Active levothyroxine (SYNTHROID) Take 25 mcg 0 25 mcg tablet by mouth daily 30 minutes before breakfast. 09/05/2018 Discontinued metformin HCl (METFORMIN Take by 0 PO) mouth daily. 09/05/2018 Discontinued tiotropium-olodaterol Inhale 2 0 (STIOLTO RESPIMAT) puffs by 2.5-2.5 mcg/actuation mouth into inhaler the lungs daily. Active Problems Problem Noted Date Hyperparathyroidism 09/13/2018 Encounters Care Team Description Date Type Specialty Shekhar Luis MD Surgery 09/29/2018 Telephone Oncology Shekhar Luis MD Surgery 09/18/2018 Telephone Oncology Pina Lancaster APRN-BRIELLE 09/05/2018 Anesthesia Anesthesiology Event Shekhar Luis MD Hyperparathyroidism (HCC) (Primary Dx) 09/05/2018 PAC Office Anesthesiology Visit Shekhar Luis MD Hyperparathyroidism (HCC) 09/05/2018 Office Visit Oncology Shekhar Luis MD 09/05/2018 Hospital Radiology Encounter Shekhar Luis MD 09/05/2018 Hospital Radiology Encounter Shekhar Luis MD Hyperparathyroidism (HCC) (Primary Dx) 09/05/2018 Prep for Case Oncology Shekhar Luis MD Hyperparathyroidism (HCC) (Primary Dx) 09/04/2018 Orders Only Oncology Claudine Brandon RN 09/04/2018 Documentation Oncology Shekhar Luis MD Navigation Assessment 09/01/2018 Telephone Oncology Shekhar Luis MD Hyperparathyroidism (HCC) (Primary Dx) 08/02/2018 Orders Only Oncology from Last 3 Months Family History Medical History Relation Name Comments Cancer-Lung Father Arthritis-rheumatoid Mother Diabetes Mother Heart Disease Mother Seizures Mother Cancer-Breast Sister Cancer-Ovarian Sister Relation Name Status Comments Father Mother Sister Social History Date Tobacco Use Types Packs/Day [...] Travel Start No recent travel history available. Last Filed Vital Signs Time Taken Vital Sign Reading 09/05/2018 3:18 PM ORDNANCE EQUIPMENT WORKER Blood Pressure 144/89 09/05/2018 3:15 PM ORDNANCE EQUIPMENT WORKER Pulse 68 09/05/2018 3:15 PM ORDNANCE EQUIPMENT WORKER Temperature 36.5 C (97.7 F) 09/05/2018 1:05 PM ORDNANCE EQUIPMENT WORKER Respiratory Rate 16 09/05/2018 3:15 PM ORDNANCE EQUIPMENT WORKER Oxygen Saturation 97% - Inhaled Oxygen - Concentration 09/05/2018 3:15 PM ORDNANCE EQUIPMENT WORKER Weight 109.3 kg (241 lb) 09/05/2018 3:15 PM ORDNANCE EQUIPMENT WORKER Height 172.7 cm (5' 8") 09/05/2018 3:15 PM ORDNANCE EQUIPMENT WORKER Body Mass Index 36.64 Plan of Treatment Care Team Description Date Type Specialty Shekhar Luis MD [address] [place] [address] Hyperparathyroidism (HCC) 10/04/2018 Hospital Encounter Kaur Santana MD [id number] [place], [place] [id number] 10/04/2018 Anesthesia Event Shekhar Luis MD [address] [place], [place] [id number] LEFT MINIMALLY INVASIVE PARATHYROIDECTOMY, POSSIBLE BILATERAL NECK EXPLORATION, VIA CENTRAL APPROACH, INTRAOPERATIVE RECURRENT LARYNGEAL NERVE MONITORING, INTRAOPERATIVE PARATHYROID HORMONE MONITORING 10/04/2018 Surgery Health Maintenance Due Date Last Done Comments HEPATITIS C SCREENING 1953 PHYSICAL (COMPREHENSIVE) 1960 EXAM HIV SCREENING 1968 DTAP/TDAP VACCINES (1 - 12/18/1971 Tdap) COLORECTAL CANCER 12/18/2003 SCREENING SHINGLES RECOMBINANT 12/18/2003 VACCINE (1 of 2) INFLUENZA VACCINE 02/22/2018 Procedures Comments Procedure Name Priority Date/Time Associated Diagnosis TYPE & SCREEN (NOT Routine 09/05/2018 Hyperparathyroidism (HCC) CROSSMATCH ELIGIBLE) 3:52 PM ORDNANCE EQUIPMENT WORKER BASIC METABOLIC PANEL Routine 09/05/2018 Hyperparathyroidism (HCC) 3:52 PM ORDNANCE EQUIPMENT WORKER CBC Routine 09/05/2018 Hyperparathyroidism (HCC) 3:52 PM ORDNANCE EQUIPMENT WORKER CT NECK W/CONTRAST Routine 09/05/2018 Hyperparathyroidism (HCC) 11:15 AM ORDNANCE EQUIPMENT WORKER POC CREATININE, RAD 09/05/2018 10:27 AM ORDNANCE EQUIPMENT WORKER 25-OH VITAMIN D (D2 + D3) Routine 09/05/2018 Hyperparathyroidism (HCC) 10:20 AM ORDNANCE EQUIPMENT WORKER ECG-SCAN 09/05/2018 12:00 AM ORDNANCE EQUIPMENT WORKER from Last 3 Months Results * CBC (09/05/2018 3:52 PM ORDNANCE EQUIPMENT WORKER) White Blood Cells 6.7 4.5 - 11.0 K/UL [facility] RBC 5.48 4.4 - 5.5 M/UL [facility] Hemoglobin 16.8 (H) 13.5 - 16.5 GM/DL [facility] Hematocrit 49.4 40 - 50 % [facility] MCV 90.1 80 - 100 FL [facility] MCH 30.6 26 - 34 PG [facility] MCHC 33.9 32.0 - 36.0 G/DL [facility] RDW 13.3 11 - 15 % [facility] Platelet Count 234 150 - 400 K/UL [facility] MPV 7.8 7 - 11 FL [facility] Specimen Blood Performing Organization Address City/[facility] Phone Number [facility] [address] [place] [address] * TYPE & SCREEN (NOT CROSSMATCH ELIGIBLE) (09/05/2018 3:52 PM ORDNANCE EQUIPMENT WORKER) ABO/RH(D) B POS [facility] Antibody Screen NEG [facility] Blood Component Type RED CELL GROUP [facility] Specimen Blood, venous - Blood Performing Organization Address City/[facility]/Zipcode Phone Number MAIN LAB [address] [place] [address] * BASIC METABOLIC PANEL (09/05/2018 3:52 PM ORDNANCE EQUIPMENT WORKER) Sodium 139 137 - 147 MMOL/L [facility] Potassium 3.8 3.5 - 5.1 MMOL/L [facility] Chloride 105 98 - 110 MMOL/L [facility] CO2 26 21 - 30 MMOL/L [facility] Anion Gap 8 3 - 12 [facility] Glucose 87 70 - 100 MG/DL [facility] Blood Urea Nitrogen 15 7 - 25 MG/DL [facility] Creatinine 1.12 0.4 - 1.24 MG/DL [facility] Calcium 10.9 (H) 8.5 - 10.6 MG/DL [facility] eGFR Non >60 >60 mL/min [facility] Comment: The eGFR is not validated for use in drug dosing adjustments.Continue to use estimated creatinine clearance per dosing reference text.Please contact the Clinical Pharmacist for questions. eGFR >60 >60 mL/min [facility] Comment: The eGFR is not validated for use in drug dosing adjustments.Continue to use estimated creatinine clearance per dosing reference text.Please contact the Clinical Pharmacist for questions. Specimen Blood Performing Organization Address City/State/Zipcode Phone Number [facility] [address] [place] [address] * CT NECK W/CONTRAST (09/05/2018 11:15 AM ORDNANCE EQUIPMENT WORKER) Impressions Performed At 1. Possible small left parathyroid adenoma adjacent to the inferior pole [facility] RAD RESULTS measuring up to 9 mm. It is indeterminate if this is a parathyroid adenoma or small area of nodular thyroid as the precontrast attenuation is similar to that of the thyroid. There is no other definite or highly suggestive candidate for a parathyroid adenoma. 2. Emphysema, scarring, and mosaic attenuation within the lung apices. 3. Maxillary sinus mucosal thickening and fluid. Finalized by Jose Coffman M.D. on 09/05/2018 2:22 PM. Dictated by Jose Coffman M.D. on 09/05/2018 12:58 PM. Narrative Performed At EXAM: CT NECK (DYNAMIC PARATHYROID) [facility] RAD RESULTS HISTORY: Hyperparathyroidism Technique: Multiple contiguous axial images were obtained of the neck before, during, and after the administration of Omnipaque 350 IV contrast. Sagittal and coronal reformations were obtained. Comparison: Outside thyroid ultrasound from May 15, 2018. Findings: Dr. Jose Coffman M.D. has personally reviewed these images and formulated the interpretations and opinions expressed in this report. Portions of the soft tissues adjacent to the thyroid and in the upper mediastinum are obscured by linear artifact from the medial clavicles, contrast within the right central venous vasculature, and sternotomy wires. There is no definite hyperenhancing mass on the right in the expected locations of the parathyroid glands. On the left there is an indeterminate possible parathyroid adenoma adjacent to the inferior pole of the thyroid. (Coronal image 50 and 51 of series 601 and axial image 156 of series 7. This area measures up to approximately 9 mm in length however has precontrast hyperdensity very similar to that of the thyroid. Elsewhere, there is no other definite candidate or highly suspicious area for a parathyroid adenoma. There is bilateral maxillary sinus mucosal thickening and fluid within the visualized portions of the sinuses. The patient is edentulous. The parotid glands and submandibular glands are unremarkable. The thyroid is slightly heterogeneous without definite mass. There is emphysema. Areas of scarring and patchy mosaic attenuation is seen in the visualized portions of the lungs. Procedure Note Interface, Radiant Results - 09/05/2018 2:25 PM ORDNANCE EQUIPMENT WORKER EXAM: CT NECK (DYNAMIC PARATHYROID) HISTORY: Hyperparathyroidism Technique: Multiple contiguous axial images were obtained of the neck before, during, and after the administration of Omnipaque 350 IV contrast. Sagittal and coronal reformations were obtained. Comparison: Outside thyroid ultrasound from May 15, 2018. Findings: Dr. Jose Coffman M.D. has personally reviewed these images and formulated the interpretations and opinions expressed in this report. Portions of the soft tissues adjacent to the thyroid and in the upper mediastinum are obscured by linear artifact from the medial clavicles, contrast within the right central venous vasculature, and sternotomy wires. There is no definite hyperenhancing mass on the right in the expected locations of the parathyroid glands. On the left there is an indeterminate possible parathyroid adenoma adjacent to the inferior pole of the thyroid. (Coronal image 50 and 51 of series 601 and axial image 156 of series 7. This area measures up to approximately 9 mm in length however has precontrast hyperdensity very similar to that of the thyroid. Elsewhere, there is no other definite candidate or highly suspicious area for a parathyroid adenoma. There is bilateral maxillary sinus mucosal thickening and fluid within the visualized portions of the sinuses. The patient is edentulous. The parotid glands and submandibular glands are unremarkable. The thyroid is slightly heterogeneous without definite mass. There is emphysema. Areas of scarring and patchy mosaic attenuation is seen in the visualized portions of the lungs. IMPRESSION 1. Possible small left parathyroid adenoma adjacent to the inferior pole measuring up to 9 mm. It is indeterminate if this is a parathyroid adenoma or small area of nodular thyroid as the precontrast attenuation is similar to that of the thyroid. There is no other definite or highly suggestive candidate for a parathyroid adenoma. 2. Emphysema, scarring, and mosaic attenuation within the lung apices. 3. Maxillary sinus mucosal thickening and fluid. Finalized by Jose Coffman M.D. on 09/05/2018 2:22 PM. Dictated by Jose Coffman M.D. on 09/05/2018 12:58 PM. Performing Organization Address City/[facility]/Zipcode Phone Number RAD RESULTS * POC CREATININE, RAD (09/05/2018 10:27 AM ORDNANCE EQUIPMENT WORKER) Creatinine, POC 1.1 0.4 - 1.24 MG/DL MAIN LAB Performing Organization Address [facility] Phone Number MAIN LAB [address] [place] [address] * 25-OH VITAMIN D (D2 + D3) (09/05/2018 10:20 AM ORDNANCE EQUIPMENT WORKER) Vitamin D(25-OH)Total 14.8 (L) 30 - 80 NG/ML MAIN LAB Specimen Blood Performing Organization Address [facility] Phone Number MAIN LAB [address] [place] [address] * ECG-SCAN (09/05/2018 12:00 AM ORDNANCE EQUIPMENT WORKER) Narrative Performed At Ordered by an unspecified provider. from Last 3 Months Insurance Payer Benefit Subscriber ID Type Phone Address Plan / Group [facility] xxxxxxxxx SERVICES Advance Directives Patient has advance care planning documents on file. For more information, please contact: [facility] [address] [place] [address] [place] [address]
--- OUTSIDE RECORDS SUMMARY | 2018-09-30 18:18 | XMS REPORT | Encounter Summary ---
Author Author [facility] Organization [facility] Address Unknown Phone Unavailable Care Team Providers Care Doctor Of Podiatry Name Role Phone Petra Ayala MD PCP Encounter Details Care Team Description Date Type Department Shekhar Luis MD [address] [place] [address] Hyperparathyroidism (HCC) (Primary Dx) 09/05/2018 PAC Office Preoperative Assessment Visit Clinic [address] [place] [address] Social History Date Tobacco Use Types Packs/Day [...] travel history available. as of this encounter Last Filed Vital Signs Time Taken Vital Sign Reading 09/05/2018 3:18 PM ELECTRONIC REPAIR TROUBLESHOOTER Blood Pressure 144/89 09/05/2018 3:15 PM ELECTRONIC REPAIR TROUBLESHOOTER Pulse 68 09/05/2018 3:15 PM ELECTRONIC REPAIR TROUBLESHOOTER Temperature 36.5 C (97.7 F) - Respiratory Rate - 09/05/2018 3:15 PM ELECTRONIC REPAIR TROUBLESHOOTER Oxygen Saturation 97% - Inhaled Oxygen - Concentration 09/05/2018 3:15 PM ELECTRONIC REPAIR TROUBLESHOOTER Weight 109.3 kg (241 lb) 09/05/2018 3:15 PM ELECTRONIC REPAIR TROUBLESHOOTER Height 172.7 cm (5' 8") 09/05/2018 3:15 PM ELECTRONIC REPAIR TROUBLESHOOTER Body Mass Index 36.64 in this encounter Patient Instructions * Pre-Anesthesia Patient Instructions* Monica Bhatt RN - 09/05/2018 3:00 PM ELECTRONIC REPAIR TROUBLESHOOTER GENERAL INFORMATION Before you come to the hospital Make arrangements for a responsible adult to drive you home and stay with you for 24 hours following surgery. Bath/Shower Instructions Take a bath or shower using the special soap given to you in PAC. Use half the bottle the night before, and the other half the morning of your procedure. Use clean towels with each bath or shower. Put on clean clothes after bath or shower. Avoid using lotion and oils. Sleep on clean sheets if bath or shower is done the night before procedure. Leave money, credit cards, jewelry, and any other valuables at home. The [facility] is not responsible for the loss or breakage of personal items. Remove nail lao, makeup and all jewelry (including piercings) before coming to the hospital. The morning of your procedure: brush your teeth and tongue do not smoke do not shave the area where you will have surgery What to bring to the hospital ID/ Insurance Card [employer] card Official documents for legal guardianship Copy of your Living Will, Advanced Directives, and/or Durable Power of Basket Hand Braider Small bag with a few personal belongings CPAP/BiPAP machine (including all supplies) Walker,cane, or motorized scooter Cases for glasses/hearing aids/contact lens (bring solutions for contacts) Dress in clean, loose, comfortable clothing Eating or drinking before surgery Do not eat or drink anything after 11:00 p.m. the day before your procedure ( including gum, mints, candy, or chewing tobacco) OR follow the specific instructions you were given by your Surgeon. You may have WATER ONLY up to 2 hours before arriving at the hospital. Other instructionsNotify your surgeon if: you become ill with a cough, fever, sore throat, nausea, vomiting or flu- like symptoms you have any open wounds/sores that are red, painful, draining, or are new since you last saw the doctor you need to cancel your procedure You will receive a call with your surgery arrival time from between 2:30pm and 4:30pm the last business day before your procedure. If you do not receive a call, please call [phone] before 4:30pm or [phone] after 4:30pm. Notify us at [facility]: if you need to cancel your procedure if you are going to be late Arrival at the hospital [facility] [address] [place] [address] ? Park in the P5 parking garage located at [address] [place] [address]. ? [employer] parking is available in front of [facility] between the hours of 7:00 am and 4:00 pm Tuesday through Tuesday. ? If parking in the P5 garage, take the east elevators in the parking garage to the second level and walk to the entrance of the [facility]. ? Enter through the 1st floor main entrance and check in with Information Desk. TRONIC REPAIR TROUBLESHOOTER * Pre-Anesthesia Medication Instructions* Arianna Torrez PHARMD - 09/05/2018 3:00 PM ELECTRONIC REPAIR TROUBLESHOOTER YOUR MEDICATIONS: albuterol (PROAIR HFA) 90 mcg/actuation inhaler Inhale 2 puffs by mouth into the lungs every 6 hours as needed for Wheezing or Shortness of Breath. Shake well before use. aspirin 81 mg chewable tablet Chew 81 mg by mouth daily. Take with food. atorvastatin (LIPITOR) 10 mg tablet Take 10 mg by mouth at bedtime daily. levothyroxine (SYNTHROID) 25 mcg tablet Take 25 mcg by mouth daily 30 minutes before breakfast. lisinopril (PRINIVIL; ZESTRIL) 10 mg tablet Take 10 mg by mouth daily. metFORMIN-XR(+) (GLUCOPHAGE XR) 500 mg extended release tablet Take 500 mg by mouth daily. metoprolol XL (TOPROL XL) 25 mg extended release tablet Take 25 mg by mouth twice daily. pantoprazole DR (PROTONIX) 40 mg tablet Take 40 mg by mouth daily. umeclidinium-vilanterol (ANORO ELLIPTA) 62.5-25 mcg/actuation inhaler Inhale 2 puffs by mouth into the lungs daily. YOUR MEDICATION INSTRUCTIONS FOR SURGERY: Before surgery Stop the following vitamins, herbals, and natural supplements 14 days before surgery: Do not start any new vitamins, herbals, or natural supplements before surgery. Stop the following medications 7 days before surgery: Anti-inflammatory medications such as ibuprofen (Advil, Motrin) and naproxen (Aleve) You may use acetaminophen (Tylenol) Please follow these instructions regarding your blood thinner medications: Aspirin: Hold for 7 days before surgery. Last dose will be 09/13/18. We will call you if this changes. Morning of surgery On the morning of surgery, do NOT take these medications: Remaining vitamins/supplements Ointments/creams/lotions Lisinopril Metformin On the morning of surgery, take ONLY these medications with a sip (1-2 ounces) of water: Use Inhalers as usual Atorvastatin Metoprolol Pantoprazole Other information Before surgery, please contact the clinic pharmacist with any medicine updates or questions. E-mail: [email or web address] Before going home from the hospital, please ask your doctor when you should re- start your medicines that were stopped before surgery. TRONIC REPAIR TROUBLESHOOTER in this encounter Progress Notes * Arianna Torrez PHARMD - 09/05/2018 3:00 PM ELECTRONIC REPAIR TROUBLESHOOTER PAC Antiplatelet Plan Note: Kristian Pierre Rico was seen in the PAC on 09/05/17. As part of the visit, an accurate medication list was obtained and the patient was given pre-op medication instructions for upcoming surgery on 09/21/18. Per Rosa with Dr. Kirk Dennis, the patient should hold aspirin for 7 days prior to surgery, with the last dose on 09/13/18. The plan above was communicated to the patient and they verbalized understanding. Arianna Torrez PHARMD TRONIC REPAIR TROUBLESHOOTER in this encounter Plan of Treatment Care Team Description Date Type Specialty Shekhar Luis MD [address] [place] [address] Hyperparathyroidism (HCC) 10/04/2018 Hospital Encounter Kaur Santana MD [address] [place] [address] [phone] 10/04/2018 Anesthesia Event Shekhar Luis MD [address] [facility] [address] [phone] LEFT MINIMALLY INVASIVE PARATHYROIDECTOMY, POSSIBLE BILATERAL NECK EXPLORATION, VIA CENTRAL APPROACH, INTRAOPERATIVE RECURRENT LARYNGEAL NERVE MONITORING, INTRAOPERATIVE PARATHYROID HORMONE MONITORING 10/04/2018 Surgery Order Schedule Name Priority Associated Diagnoses ONE TIME for 1 Occurrences starting 09/05/2018 until 09/05/2018 ECG 12-LEAD Routine Hyperparathyroidism (HCC) as of this encounter Procedures Comments Procedure Name Priority Date/Time Associated Diagnosis CBC Routine 09/05/2018 Hyperparathyroidism (HCC) 3:52 PM ELECTRONIC REPAIR TROUBLESHOOTER TYPE & SCREEN (NOT Routine 09/05/2018 Hyperparathyroidism (HCC) CROSSMATCH ELIGIBLE) 3:52 PM ELECTRONIC REPAIR TROUBLESHOOTER BASIC METABOLIC PANEL Routine 09/05/2018 Hyperparathyroidism (HCC) 3:52 PM ELECTRONIC REPAIR TROUBLESHOOTER in this encounter Results * TYPE & SCREEN (NOT CROSSMATCH ELIGIBLE) (09/05/2018 3:52 PM ELECTRONIC REPAIR TROUBLESHOOTER) ABO/RH(D) B POS [facility] Antibody Screen NEG [facility] Blood Component Type RED CELL GROUP [facility] Specimen Blood, venous - Blood Performing Organization Address City/State/Zipcode Phone Number [facility] [address] [place] [address] * BASIC METABOLIC PANEL (09/05/2018 3:52 PM ELECTRONIC REPAIR TROUBLESHOOTER) Sodium 139 137 - 147 MMOL/L [facility] [...] for questions. Specimen Blood Performing Organization Address City/[facility]/Zipcode Phone Number MAIN LAB [address] [place] [address] * CBC (09/05/2018 3:52 PM ELECTRONIC REPAIR TROUBLESHOOTER) White Blood Cells 6.7 4.5 - 11.0 [...] MAIN LAB Specimen Blood Performing Organization Address City/[facility]/Zipcode Phone Number MAIN LAB [address] [place] [address] in this encounter Visit Diagnoses Diagnosis Hyperparathyroidism (HCC) - Primary Hyperparathyroidism, unspecified in this encounter
--- OUTSIDE RECORDS SUMMARY | 2018-09-30 18:19 | XMS REPORT | Encounter Summary ---
Author Author [facility] Organization [facility] Address Unknown Phone Unavailable Care Team Providers Care Header Boss Name Role Phone Petra Ayala MD PCP Reason for Referral * Radiology Services (Routine) Referred By Contact Referred To Contact Status Reason Specialty Diagnoses / Procedures Shekhar Luis MD [address] [place] [address] Shahzad [address] [place] [address] Authorized Radiology Diagnoses Hyperparathyroidis m (HCC) P rocedures CT NECK W/CONTRAST * Radiology Services (Routine) Referred By Contact Referred To Contact Status Reason Specialty Diagnoses / Procedures Shekhar Luis MD [address] [place] [address] fl Shahzad [address] [place] [address] Authorized Radiology Diagnoses Hyperparathyroidis m (HCC) P rocedures CT NECK W/CONTRAST Reason for Visit * Radiology Services (Routine) Referred By Contact Referred To Contact Status Reason Specialty Diagnoses / Procedures Shekhar Luis MD [facility] [place] [address] Shahzad [address] [place] [address] Authorized Radiology Diagnoses Hyperparathyroidis m (HCC) P rocedures CT NECK W/CONTRAST Encounter Details Care Team Description Date Type Department Shekhar Luis MD [address] [facility] [place] [address] [phone] 09/05/2018 [facility] Encounter [place] [facility] 1st fl Shahzad 1100 [address] [place], [place] [id number] Social History Date Tobacco Use Types Packs/Day [...] Description Date Type Specialty Shekhar Luis MD [address] [place] [address] [phone] Hyperparathyroidism (HCC) 10/04/2018 Hospital Encounter Kaur Santana MD [address] [place] [address] [phone] 10/04/2018 Anesthesia Event Shekhar Luis MD [address] [place], [place] [phone] LEFT MINIMALLY INVASIVE PARATHYROIDECTOMY, POSSIBLE BILATERAL NECK EXPLORATION, VIA CENTRAL APPROACH, INTRAOPERATIVE RECURRENT LARYNGEAL NERVE MONITORING, INTRAOPERATIVE PARATHYROID HORMONE MONITORING 10/04/2018 Surgery as of this encounter Procedures Comments Procedure Name Priority Date/Time Associated Diagnosis CT NECK W/CONTRAST Routine 09/05/2018 Hyperparathyroidism (HCC) 11:15 AM LEADERSHIP DEVELOPMENT MANAGER 25-OH VITAMIN D (D2 + D3) Routine 09/05/2018 Hyperparathyroidism (HCC) 10:20 AM LEADERSHIP DEVELOPMENT MANAGER in this encounter Results * CT NECK W/CONTRAST (09/05/2018 11:15 AM LEADERSHIP DEVELOPMENT MANAGER) Impressions Performed At 1. Possible small left [...] Interface, Radiant Results - 09/05/2018 2:25 PM LEADERSHIP DEVELOPMENT MANAGER EXAM: CT NECK (DYNAMIC PARATHYROID) HISTORY: Hyperparathyroidism [...] on 09/05/2018 12:58 PM. Performing Organization Address City[facility] Phone Number RAD RESULTS * 25-OH VITAMIN D (D2 + D3) (09/05/2018 10:20 AM LEADERSHIP DEVELOPMENT MANAGER) Vitamin D(25-OH)Total 14.8 (L) 30 - 80 NG/ML MAIN LAB Specimen Blood Performing Organization Address City[facility] Phone Number MAIN LAB [address] [place] [address] in this encounter Visit Diagnoses Diagnosis Hyperparathyroidism (HCC) Hyperparathyroidism, unspecified in this encounter Administered Medications Action Date Dose Rate Site Medication Order MAR Action 09/05/2018 10:45 AM LEADERSHIP DEVELOPMENT MANAGER 80 mL iohexol (OMNIPAQUE-350) 350 mg/mL Given injection 80 mL 80 mL, Intravenous, ONCE, 1 dose, 09/05/18 at 1045, NOTE: This is a HIGH ALERT Medication., 09/05/2018 11:16 AM LEADERSHIP DEVELOPMENT MANAGER 50 mL sodium chloride PF 0.9% injection 50 mL Given 50 mL, Intravenous, ONCE, 1 dose, 09/05/18 at 1045, Intra-procedure (IR) in this encounter
--- OUTSIDE RECORDS SUMMARY | 2018-09-30 18:19 | XMS REPORT | Encounter Summary ---
Author Author [facility] Organization [facility] Address Unknown Phone Unavailable Care Team Providers Care Buffer Nickel Name Role Phone No Pcp, Na PCP Unavailable Encounter Details Care Team Description Date Type Department Shekhar Luis MD [address] [place], [place] [phone] Hyperparathyroidism (HCC) (Primary Dx) 09/04/[address] [facility] - [address] [phone] Social History Date Tobacco Use Types Packs/Day Years Used Never Assessed Sex Assigned at Date Recorded Not on file Industry Job Start Date Occupation Not on file Not on file Not on file Travel End Travel History Travel Start No recent travel history available. as of this encounter Plan of Treatment Care Team Description Date Type Specialty Shekhar Luis MD [address] [place], [place] [phone] Hyperparathyroidism (HCC) 10/04/2018 Hospital Encounter Kaur Santana MD [address] [place] [phone] 10/04/2018 Anesthesia Event Shekhar Luis MD [address] [place], [place] [phone] LEFT MINIMALLY INVASIVE PARATHYROIDECTOMY, POSSIBLE BILATERAL NECK EXPLORATION, VIA CENTRAL APPROACH, INTRAOPERATIVE RECURRENT LARYNGEAL NERVE MONITORING, INTRAOPERATIVE PARATHYROID HORMONE MONITORING 10/04/2018 Surgery as of this encounter Results * 25-OH VITAMIN D (D2 + D3) (09/05/2018 10:20 AM ROLL CUTTING OPERATOR) Vitamin D(25-OH)Total 14.8 (L) 30 - 80 NG/ML [facility] MAIN LAB Specimen Blood Performing Organization Address City/State/Zipcode Phone Number MAIN LAB [address] [place] [address] in this encounter Visit Diagnoses Diagnosis Hyperparathyroidism (HCC) - Primary Hyperparathyroidism, unspecified in this encounter
--- OUTSIDE RECORDS SUMMARY | 2018-09-30 18:19 | XMS REPORT | Encounter Summary ---
Author Author [facility] Organization [facility] Address Unknown Phone Unavailable Care Team Providers Care Newspaper Peddler Name Role Phone No Pcp, Na PCP Unavailable Reason for Visit * Reason Comments Navigation Assessment Encounter Details Care Team Description Date Type Department Shekhar Luis MD [address] [place], [place] [phone] Navigation Assessment 09/01/2018 Telephone [facility] - [facility] Exam [address] [phone] Social History Date Tobacco Use Types Packs/Day Years Used Never Assessed Sex Assigned at Date Recorded Not on file Industry Job Start Date Occupation Not on file Not on file Not on file Travel End Travel History Travel Start No recent travel history available. as of this encounter Miscellaneous Notes * Telephone Encounter - Claudine Brandon RN - 09/01/2018 11:48 AM E COMMERCE DIRECTOR Navigation Intake Assessment Document Patient Name: Kristian Negron : 1955 Insurance: [facility] Appointment Info: Future Appointments Date Time Provider Department Center 09/05/2018 10:45 AM [facility] Radiology 09/05/2018 2:00 PM Shekhar Luis MD [facility] Exam Diagnosis & Reason for Visit: Hyperparathyroidism [address] Neck-scheduled at prior to appt 05/15/2018- US Thyroid- No discrete mass is detected 07/27/2018- Outside labs 07/27/18- PTH: 105.2 07/27/18- TSH: 3.965 07/27/18- T4: 1.04 07/27/18- Calcium: 10.7 No prior neck surgeries, Pt reports on Thyroxine 25 mcg daily. Pt denies any symptoms Physician Info: Referring Physician: Dr Petra Rae DO Contact Name & Number: [phone] Surgeon: Appt with Dr Luis PCP: Dr Rae Location of Films: IN HOUSE and PACS Location of Pathology: N/A Prior Treatment (XRT, Surgery, Chemotherapy): Denies E COMMERCE DIRECTOR in this encounter Plan of Treatment Care Team Description Date Type Specialty Shekhar Luis MD [address] [place] [address] Hyperparathyroidism (HCC) 10/04/2018 Hospital Encounter Karu Santana MD [address] [place] [address] 10/04/2018 Anesthesia Event Shekhar Luis MD [address] [place] [address] LEFT MINIMALLY INVASIVE PARATHYROIDECTOMY, POSSIBLE BILATERAL NECK EXPLORATION, VIA CENTRAL APPROACH, INTRAOPERATIVE RECURRENT LARYNGEAL NERVE MONITORING, INTRAOPERATIVE PARATHYROID HORMONE MONITORING 10/04/2018 Surgery as of this encounter Visit Diagnoses Not on filein this encounter
--- OUTSIDE RECORDS SUMMARY | 2018-09-30 18:19 | XMS REPORT | Encounter Summary ---
Author Author [facility] Organization [facility] Address Unknown Phone Unavailable Care Team Providers Care Aerial Advertiser Name Role Phone No Pcp, Na PCP Unavailable Reason for Referral * Radiology Services (Routine) Referred By Contact Referred To Contact Status Reason Specialty Diagnoses / [place] [address] [place] [address] Shahzad [address] [place] [address] Authorized Radiology Diagnoses Hyperparathyroidis m (HCC) P rocedures CT NECK W/CONTRAST Encounter Details Care Team Description Date [place] [address] [place] [address] [phone] Hyperparathyroidism (HCC) (Primary Dx) 08/02/2018 Orders Only [facility] - Exam [address] [phone] Social History Date Tobacco Use Types Packs/Day Years Used Never Assessed Sex Assigned at Date Recorded Not on file Industry Job Start Date Occupation Not on file Not on file Not on file Travel End Travel History Travel Start No recent travel history available. as of this encounter Plan of Treatment Care Team Description Date Type Specialty Shekhar Luis MD [address] [place], [place] [phone] Hyperparathyroidism (HCC) 10/04/2018 Hospital Encounter Kaur Santana MD [address] [place] [address] [phone] 10/04/2018 Anesthesia Event Shekhar Luis MD [address] [facility] [place] [address] [phone] LEFT MINIMALLY INVASIVE PARATHYROIDECTOMY, POSSIBLE BILATERAL NECK EXPLORATION, VIA CENTRAL APPROACH, INTRAOPERATIVE RECURRENT LARYNGEAL NERVE MONITORING, INTRAOPERATIVE PARATHYROID HORMONE MONITORING 10/04/2018 Surgery as of this encounter Results * CT NECK W/CONTRAST (09/05/2018 11:15 AM PROFESSIONAL FEE CODER) Impressions Performed At 1. Possible small left [...] Interface, Radiant Results - 09/05/2018 2:25 PM PROFESSIONAL FEE CODER EXAM: CT NECK (DYNAMIC PARATHYROID) HISTORY: Hyperparathyroidism [...] on 09/05/2018 12:58 PM. Performing Organization Address City/State/Zipcode Phone Number [facility] RAD RESULTS in this encounter Visit Diagnoses Diagnosis Hyperparathyroidism (HCC) - Primary Hyperparathyroidism, unspecified in this encounter
--- OUTSIDE RECORDS SUMMARY | 2018-09-30 18:19 | XMS REPORT | Encounter Summary ---
Author Author [facility] Organization [facility] Address Unknown Phone Unavailable Care Team Providers Care Room Inspector Name Role Phone No Pcp, Na PCP Unavailable Petra Ayala MD PCP Encounter Details Care Team Description Date Type Department Claudine Brandon RN 09/04/2018 Documentation [facility] - [address] [phone] Social History Date Tobacco Use Types Packs/Day Years Used Never Assessed Sex Assigned at Date Recorded Not on file Industry Job Start Date Occupation Not on file Not on file Not on file Travel End Travel History Travel Start No recent travel history available. as of this encounter Plan of Treatment Care Team Description Date [place] [address] [place] [phone] Hyperparathyroidism (HCC) 10/04/2018 Hospital Encounter Kaur Santana MD [address] [address] [phone] 10/04/2018 [place]est[place] [address] [place] [phone] LEFT MINIMALLY INVASIVE PARATHYROIDECTOMY, POSSIBLE BILATERAL NECK EXPLORATION, VIA CENTRAL APPROACH, INTRAOPERATIVE RECURRENT LARYNGEAL NERVE MONITORING, INTRAOPERATIVE PARATHYROID HORMONE MONITORING 10/04/2018 Surgery as of this encounter Visit Diagnoses Not on filein this encounter
--- OUTSIDE RECORDS SUMMARY | 2018-09-30 18:19 | XMS REPORT | Encounter Summary ---
Author Author [facility] Organization [facility] Address Unknown Phone Unavailable Care Team Providers Care Lead Case Manager Name Role Phone Petra Ayala MD PCP Reason for Visit * Reason Comments Cancer * Consult, Test & Treat (Routine) Referred By Contact Referred To Contact Status Reason Specialty Diagnoses / Procedures Petra Ayala MD [address] [place] [address] [place] [address] [place] [address] Authorized General Surgery Diagnoses / Oncology Hyperparathyroidis m, unspecified (HCC) hyperparathyroidis m P rocedures MO OFFICE/OUTPT VISIT,TYLER GARIBAY I Encounter Details Care Team Description Date Type Department Shekhar Luis MD [address] [place] [address] Hyperparathyroidism (HCC) 09/05/2018 Office Visit [facility] - Exam [address] [address] Social History Date Tobacco Use Types Packs/Day [...] Signs Time Taken Vital Sign Reading 09/05/2018 1:05 PM PAINTING AND COATING WORKER Blood Pressure 152/82 09/05/2018 1:05 PM PAINTING AND COATING WORKER Pulse 68 09/05/2018 1:05 PM PAINTING AND COATING WORKER Temperature 36.5 C (97.7 F) 09/05/2018 1:05 PM PAINTING AND COATING WORKER Respiratory Rate 16 09/05/2018 1:05 PM PAINTING AND COATING WORKER Oxygen Saturation 95% - Inhaled Oxygen - Concentration 09/05/2018 1:05 PM PAINTING AND COATING WORKER Weight 109.3 kg (241 lb) 09/05/2018 1:05 PM PAINTING AND COATING WORKER Height 172.7 cm (5' 8") 09/05/2018 1:05 PM PAINTING AND COATING WORKER Body Mass Index 36.64 in this encounter Progress Notes * Shekhar Luis MD - 09/05/2018 2:00 PM PAINTING AND COATING WORKER Name: Kristian Negron : 1955 AGE: 62 y.o. DATE OF SERVICE: 09/05/2018 Subjective: History of Present [id number] y/o male with likely primary hyperthyroidism presenting to clinic after primary care provider shonda routine labs showing an elevated calcium level at 10.7. Follow-up PTH was 105.2. Patient was recently started on 25mcg of synthroid for subclinical hypothyroidism. States that he has symptoms of fatigue and no other major symptoms. Review of Systems Constitutional: Positive for fatigue. Respiratory: Positive for shortness of breath. Gastrointestinal: Negative. Endocrine: Negative. Neurological: Negative. Psychiatric/Behavioral: Negative. The following medical/surgical/family/social history and the list of medications are current, as of 09/13/2018 Past Medical History: Diagnosis Date Acquired hypothyroidism Arthritis CAD (coronary artery disease) Congestive heart disease (HCC) Coronary artery disease Diabetes mellitus (HCC) Diabetes mellitus (HCC) type2 Emphysema lung (HCC) Gastrointestinal disorder Hearing reduced bilateral hearing aids Hyperlipidemia Hypertension Myocardial infarction (HCC) 2007 Sleep apnea uses CPAP Vision decreased Past Surgical History: Procedure Laterality Date CORONARY ARTERY BYPASS GRAFT 2007 4 vessel CORONARY STENT PLACEMENT 2010 x 1 COLONOSCOPY HIATAL HERNIA REPAIR x 3 HX HEART CATHETERIZATION INGUINAL HERNIA REPAIR Bilateral SHOULDER SURGERY Bilateral Family History Problem Relation Age of Onset Diabetes Mother Heart Disease Mother Arthritis-rheumatoid Mother Seizures Mother Cancer-Lung Father Cancer-Breast Sister Cancer-Ovarian Sister Social History Socioeconomic History Marital status: Spouse name: Not on file Number of children: Not on file Years of education: Not on file Highest education level: Not on file Occupational History Not on file Tobacco Use Smoking status: Former Smoker Packs/day: 1.50 Years: 40.00 Pack years: 60.00 Types: Cigarettes Last attempt to quit: 2007 Years since quittin.1 Smokeless tobacco: Never Used Substance and Sexual Activity Alcohol use: No Frequency: Never Drug use: No Sexual activity: Not on file Other Topics Concern Not on file Social History Narrative Not on file Prior to Admission Meds for Inpatient Objective: albuterol (PROAIR HFA) 90 mcg/actuation inhaler Inhale [...] puffs by mouth into the lungs daily. Vitals: 09/05/18 1305 BP: 152/82 Pulse: 68 Resp: 16 Temp: 36.5 C (97.7 F) TempSrc: Oral SpO2: 95% Weight: 109.3 kg (241 lb) Height: 172.7 cm (68") Body mass index is 36.64 kg/m. Physical Exam Constitutional: He is oriented to person, place, and time. He appears well- developed and well-nourished. No distress. HENT: Head: Normocephalic and atraumatic. Neck: Normal range of motion. No JVD present. No tracheal deviation present. No thyromegaly present. Cardiovascular: Normal rate, regular rhythm and normal heart sounds. Pulmonary/Chest: Effort normal and breath sounds normal. Abdominal: Soft. Lymphadenopathy: He has no cervical adenopathy. Neurological: He is alert and oriented to person, place, and time. Skin: Skin is warm and dry. He is not diaphoretic. Assessment and Plan: 62M with primary hyperparathyroidism with unknown location of adenoma after 4D- CT. Explained the risks/benefits of proceeding with parathyroidectomy with intraoperative PTH monitoring. Patient agrees to proceed with surgery. Risks specifically of RLN injury and chronic hypocalcemia discussed and patient agrees. 1. OR for parathyroidectomy (09/21/2018) 2. CERAMIC MAKER DEMONSTRATOR prior to OR River Sunshine MD Problem Hyperparathyroidism (Hcc) Attestation: I personally performed a history and physical examination of the patient and discussed the management of the patient with my resident Dr. Sunshine and reviewed their medical records myself including recent imaging as well as laboratory findings and agree with the history, physical exam, and plan of care including follow-up. I reviewed the resident's note and agree with the documented findings and plan of care. I spent a total of 60 minutes with the patient of which 50 minutes were spent in drapery counselor about the details of the condition, specifically the surgical management of hyperparathyroidism. Thank you for involving me in the care of this patient. Please don't hesitate to contact me if you have any questions or concerns. Kind regards, Shekhar Luis MD, FACS TING AND COATING WORKER in this encounter Plan of Treatment Care Team Description Date Type Specialty Shekhar Luis MD [address] [place], [place] [phone] Hyperparathyroidism (HCC) 10/04/2018 Hospital Encounter Kaur Santana MD [address] [place] [address] [phone] 10/04/2018 Anesthesia Event Shekhar Luis MD [address] [place] [address] [phone] LEFT MINIMALLY INVASIVE PARATHYROIDECTOMY, POSSIBLE BILATERAL NECK EXPLORATION, VIA CENTRAL APPROACH, INTRAOPERATIVE RECURRENT LARYNGEAL NERVE MONITORING, INTRAOPERATIVE PARATHYROID HORMONE MONITORING 10/04/2018 Surgery Order Schedule Name Priority Associated Diagnoses Expected: 10/03/2018 (Approximate), Expires: 09/06/2019 CALCIUM Routine Hyperparathyroidism (HCC) as of this encounter Visit Diagnoses Diagnosis Hyperparathyroidism (HCC) Hyperparathyroidism, unspecified in this encounter
--- OUTSIDE RECORDS SUMMARY | 2018-09-30 18:20 | XMS REPORT | Continuity of Care Document ---
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 05/28/2015 NANCY ARREOLA MD Ot I50.32 CHRONIC DIASTOLIC (CONGESTIVE) HEART JOHNSON 05/28/2015 NANCY ARREOLA MD, Ot J44.9 CHRONIC OBSTRUCTIVE PULMONARY DISEASE, U 05/28/2015 NANCY ARREOLA MD Ot R07.89 OTHER CHEST PAIN 05/28/2015 NANCY ARREOLA MD Ot R94.39 ABNORMAL RESULT OF OTHER CARDIOVASCULAR 05/28/2015 NANCY ARREOLA MD Ot Z79.899 OTHER CARE HOME (CURRENT) DRUG THERAPY 05/28/2015 MAXWELL DOZIER, NANCY [...] MORAN APRN Ot M54.5 10/10/2015 MEAGHAN MORAN LUSTER REPAIRER Ot M54.5 10/31/2015 MEAGHAN MORAN LUSTER REPAIRER Ot M54.5 03/24/2016 CR RIVERA RACHEL Rakesh [...] MATAMOROS Ot I25.10 ATHSCL HEART DISEASE OF [place] CORONARY 03/26/2016 LORI MATAMOROS Ot I65.23 OCCLUSION [...] Ot R06.02 SHORTNESS OF BREATH 05/11/2016 RACHEL HANKNIS DO Ot Z72.0 TOBACCO USE 05/23/2016 RACHEL [...] MATAMOROS Ot I25.10 ATHSCL HEART DISEASE OF [place] CORONARY 05/25/2016 LORI MATAMOROS Ot I65.23 OCCLUSION [...] MATAMOROS Ot I25.10 ATHSCL HEART DISEASE OF [place] CORONARY 07/05/2017 LORI MATAMOROS Ot I65.23 OCCLUSION AND STENOSIS OF BILATERAL [place]TE[place] 07/11/2017 ANNCY ARREOLA MD Ot E78.5 HYPERLIPIDEMIA, UNSPECIFIED 07/11/2017 NANCY ARREOLA MD Ot G47.33 OBSTRUCTIVE SLEEP APNEA (ADULT) (PEDIATR 07/11/2017 NANCY ARREOLA MD Ot I10 ESSENTIAL (PRIMARY) HYPERTENSION 07/11/2017 NANCY ARREOLA MD Ot I25.10 ATHSCL HEART DISEASE OF [place] CORONARY 07/11/2017 NANCY ARREOLA MD Ot I65.23 OCCLUSION AND STENOSIS OF BILATERAL [place] 07/11/2017 NANCY ARREOLA MD Ot I73.9 PERIPHERAL VASCULAR DISEASE, UNSPECIFIED 07/11/2017 NANCY ARREOLA MD Ot J44.9 CHRONIC OBSTRUCTIVE PULMONARY DISEASE, U 07/11/2017 NANCY ARREOLA MD Ot Z79.899 OTHER CARE HOME (CURRENT) DRUG THERAPY 07/29/2017 LORI MATAMOROS Ot E78.2 MIXED HYPERLIPIDEMIA 07/29/2017 LORI MATAMOROS Ot I10 ESSENTIAL (PRIMARY) HYPERTENSION 07/29/2017 LORI MATAMOROS Ot I25.10 ATHSCL HEART DISEASE OF [place] CORONARY 07/29/2017 LORI MATAMOROS Ot I65.23 OCCLUSION AND STENOSIS OF BILATERAL [place] 08/04/2017 LORI MATAMOROS Ot E78.2 MIXED HYPERLIPIDEMIA 08/04/2017 LORI MATAMOROS Ot I10 ESSENTIAL (PRIMARY) HYPERTENSION 08/04/2017 LORI MATAMOROS Ot I25.10 ATHSCL HEART DISEASE OF [place] CORONARY 08/04/2017 LORI MATAMOROS Ot I65.23 OCCLUSION [...] MATAMOROS Ot I25.10 ATHSCL HEART DISEASE OF [place] CORONARY 02/14/2018 LORI MATAMOROS Ot I65.23 OCCLUSION AND STENOSIS OF BILATERAL [place] 02/14/2018 LORI MATAMOROS Ot E78.2 MIXED HYPERLIPIDEMIA 02/14/2018 LORI MATAMOROS Ot I10 ESSENTIAL (PRIMARY) HYPERTENSION 02/14/2018 LORI MATAMOROS Ot I25.10 ATHSCL HEART DISEASE OF [place] CORONARY 02/14/2018 LORI MATAMOROS Ot I65.23 OCCLUSION [...] MD, Ot I25.10 ATHSCL HEART DISEASE OF [place] CORONARY 04/24/2018 KASHIF GARCIAS MD, Ot J43.9 EMPHYSEMA, UNSPECIFIED 04/24/2018 KASHIF GARCIAS MD, Ot K57.30 DVRTCLOS OF LG INT W/O PERFORATION OR AB 04/24/2018 KAHSIF GARCIAS MD, Ot K63.5 POLYP OF COLON 04/24/2018 KASHIF GARCIAS MD, Ot Z12.11 ENCOUNTER FOR SCREENING FOR MALIGNANT NE 04/24/2018 KASHIF GARCIAS MD, Ot Z79.4 ACADEMIC AFFAIRS DIRECTOR (CURRENT) USE OF INSULIN 04/24/2018 KASHIF GARCIAS MD, Ot Z79.82 CARE HOME (CURRENT) USE OF ASPIRIN 04/24/2018 KASHIF GARCISA MD, Ot Z79.899 OTHER ACADEMIC AFFAIRS DIRECTOR (CURRENT) DRUG THERAPY 04/24/2018 KASHIF GARCIAS MD, Ot Z80.1 FAMILY HISTORY OF MALIG NEOPLASM OF TRAC 04/24/2018 KASHIF GARCIAS MD Ot Z80.41 FAMILY HISTORY OF MALIGNANT NEOPLASM OF 05/08/2018 EAMON HURST MD Ot E11.9 TYPE 2 DIABETES MELLITUS WITHOUT COMPLIC 05/08/2018 EAMON HURST MD, Ot E66.9 OBESITY, UNSPECIFIED 05/08/2018 EAMON HURST MD, Ot E78.5 HYPERLIPIDEMIA, UNSPECIFIED 05/08/2018 EAMON HURST MD, Ot G47.30 SLEEP APNEA, UNSPECIFIED 05/08/2018 EAMON HURST MD, Ot I10 ESSENTIAL (PRIMARY) HYPERTENSION 05/08/2018 EAMON HURST MD, Ot I25.10 ATHSCL HEART DISEASE OF [place] CORONARY 05/08/2018 EAMON HURST MD, Ot I65.23 OCCLUSION AND STENOSIS OF BILATERAL [place] 05/08/2018 EAMON HURST MD, Ot J43.9 EMPHYSEMA, UNSPECIFIED 05/08/2018 EAMON HURST MD, Ot R07.9 CHEST PAIN, UNSPECIFIED 05/08/2018 EAMON HURST MD, Ot R42 DIZZINESS AND GIDDINESS 05/08/2018 EAMON HURST MD Ot Z68.35 BODY MASS INDEX (BMI) 35.0-35.9, ADULT 05/08/2018 EAMON HURST MD Ot Z79.82 ACADEMIC AFFAIRS DIRECTOR (CURRENT) USE OF ASPIRIN 05/08/2018 EAMON HURST MD, Ot Z79.84 ACADEMIC AFFAIRS DIRECTOR (CURRENT) USE OF ORAL HYPOGLYC 05/08/2018 EAMON HURST MD Ot Z86.73 PRSNL HX OF TIA (TIA), AND CEREB INFRC W 05/08/2018 EAMON HURST MD, Ot Z87.891 PERSONAL HISTORY OF NICOTINE DEPENDENCE 05/08/2018 EAMON HURST MD Ot Z95.1 PRESENCE OF AORTOCORONARY BYPASS GRAFT 05/08/2018 EAMON HURST MD Ot Z95.5 PRESENCE OF CORONARY ANGIOPLASTY IMPLANT 05/17/2018 YENI AYALA DO Ot E21.3 HYPERPARATHYROIDISM, UNSPECIFIED 05/17/2018 YENI AYALA DO Ot R94.6 ABNORMAL RESULTS OF THYROID FUNCTION JIM Procedures There is no data. Results Test [...] Staphylococcus aureus (MRSA) screening culture NEG NRG Complete blood count (CBC) with automated white blood cell (WBC) differential - 05/07/18 15:42 Blood leukocytes automated count (number/volume) 6.9 10*3/uL 4.3-11.0 Blood erythrocytes automated count (number/volume) 5.24 10*6/uL 4.35-5.85 Venous blood hemoglobin measurement (mass/volume) 16.0 g/dL 13.3-17.7 Blood hematocrit (volume fraction) 45 % 40-54 Automated erythrocyte mean corpuscular volume 87 [foz_us] 80-99 Automated erythrocyte mean corpuscular hemoglobin (mass per erythrocyte) 31 pg 25-34 Automated erythrocyte mean corpuscular hemoglobin concentration measurement ( mass/volume) 35 g/dL 32-36 Automated erythrocyte distribution width ratio 13.1 % 10.0-14.5 Automated blood platelet count (count/volume) 204 10*3/uL 130-400 Automated blood platelet mean volume measurement 10.1 [foz_us] 7.4-10.4 Automated blood neutrophils/100 leukocytes 60 % 42-75 Automated blood lymphocytes/100 leukocytes 26 % 12-44 Blood monocytes/100 leukocytes 11 % 0-12 Automated blood eosinophils/100 leukocytes 3 % 0-10 Automated blood basophils/100 leukocytes 0 % 0-10 Blood neutrophils automated count (number/volume) 4.2 10*3 1.8-7.8 Blood lymphocytes automated count (number/volume) 1.8 10*3 1.0-4.0 Blood monocytes automated count (number/volume) 0.7 10*3 0.0-1.0 Automated eosinophil count 0.2 10*3/uL 0.0-0.3 Automated blood basophil count (count/volume) 0.0 10*3/uL 0.0-0.1 Comprehensive metabolic panel - 05/07/18 15:42 Serum or plasma sodium measurement (moles/volume) 140 mmol/L 135-145 Serum or plasma potassium measurement (moles/volume) 3.8 mmol/L 3.6-5.0 Serum or plasma chloride measurement (moles/volume) 106 mmol/L 98-107 Carbon dioxide 21 mmol/L 21-32 Serum or plasma anion gap determination (moles/volume) 13 mmol/L 5-14 Serum or plasma urea nitrogen measurement (mass/volume) 18 mg/dL 7-18 Serum or plasma creatinine measurement (mass/volume) 1.19 mg/dL 0.60-1.30 Serum or plasma urea nitrogen/creatinine mass ratio 15 NRG Serum or plasma creatinine measurement with calculation of estimated glomerular filtration rate > NRG Serum or plasma glucose measurement (mass/volume) 115 mg/dL 70-105 Serum or plasma calcium measurement (mass/volume) 10.4 mg/dL 8.5-10.1 Serum or plasma total bilirubin measurement (mass/volume) 0.8 mg/dL 0.1-1.0 Serum or plasma alkaline phosphatase measurement (enzymatic activity/volume) 81 U/L 40-136 Serum or plasma aspartate aminotransferase measurement (enzymatic activity/ volume) 42 U/L 5-34 Serum or plasma alanine aminotransferase measurement (enzymatic activity/volume ) 83 U/L 0-55 Serum or plasma protein measurement (mass/volume) 7.6 g/dL 6.4-8.2 Serum or plasma albumin measurement (mass/volume) 4.2 g/dL 3.2-4.5 CALCIUM CORRECTED 10.2 mg/dL 8.5-10.1 Magnesium - 05/07/18 15:42 Magnesium 2.1 mg/dL 1.8-2.4 PT panel in platelet poor plasma by coagulation assay - 05/07/18 15:42 Prothrombin time (PT) in platelet poor plasma by coagulation assay 14.1 s 12.2-14.7 INR in platelet poor plasma or blood by coagulation assay 1.1 0.8-1.4 Activated partial thromboplastin time (aPTT) in platelet poor plasma bycoagulation assay - 05/07/18 15:42 Activated partial thromboplastin time (aPTT) in platelet poor plasma bycoagulation assay 24 s 24-35 Serum or plasma troponin i.cardiac measurement (mass/volume) - 05/07/18 15:42 Serum or plasma troponin i.cardiac measurement (mass/volume) < ng/ mL <0.30 Myoglobin, serum - 05/07/18 15:42 Myoglobin, serum 62.4 ng/mL 10.0-92.0 Complete urinalysis with reflex to culture - 05/07/18 16:22 Urine color determination YELLOW NRG Urine clarity determination CLEAR NRG Urine pH measurement by test strip 5 5-9 Specific gravity of urine by test strip 1.025 1.016- 1.022 Urine protein assay by test strip, semi-quantitative 1+ NEGATIVE Urine glucose detection by automated test strip NEGATIVE NEGATIVE Erythrocytes detection in urine sediment by light microscopy NEGATIVE NEGATIVE Urine ketones detection by automated test strip NEGATIVE NEGATIVE Urine nitrite detection by test strip NEGATIVE NEGATIVE Urine total bilirubin detection by test strip NEGATIVE NEGATIVE Urine urobilinogen measurement by automated test strip (mass/volume) NORMAL NORMAL Urine leukocyte esterase detection by dipstick 1+ NEGATIVE Automated urine sediment erythrocyte count by microscopy (number/high power field) NONE NRG Automated urine sediment leukocyte count by microscopy (number/high power field ) [HPF] NRG Bacteria detection in urine sediment by light microscopy NEGATIVE NRG Crystals detection in urine sediment by light microscopy NONE NRG Casts detection in urine sediment by light microscopy PRESENT NRG Mucus detection in urine sediment by light microscopy LARGE NRG Complete urinalysis with reflex to culture NO NRG Hyaline casts detection in urine sediment by light microscopy 0-2 NRG Serum or plasma creatine kinase measurement (enzymatic activity/volume) - 05/07 22:01 Serum or plasma creatine kinase measurement (enzymatic activity/volume) 138 U/L 30-200 Serum or plasma troponin i.cardiac measurement (mass/volume) - 05/07/18 22:01 Serum or plasma troponin i.cardiac measurement (mass/volume) < ng/ mL <0.30 Lipid 1996 panel - 05/08/18 03:05 Serum or plasma triglyceride measurement (mass/volume) 192 mg/dL <150 Serum or plasma cholesterol measurement (mass/volume) 154 mg/dL < 200 Serum or plasma cholesterol in HDL measurement (mass/volume) 30 mg/ dL 40-60 Cholesterol in LDL [mass/volume] in serum or plasma by direct assay 105 mg/dL 1-129 Serum or plasma cholesterol in VLDL measurement (mass/volume) 38 mg/ dL 5-40 Encounters ACCT No. Visit Date/Time Discharge Status Pt. Type Provider Facility Loc./Unit Complaint [id number] 05/15/2018 08:08:00 05/15/2018 23:59:59 CLS Outpatient YENI AYLAA DO [facility] RAD ABNORMAL THYROID LAB [id number] 05/07/2018 17:50:00 05/08/2018 14:07:00 DIS Inpatient EAMON HURST MD [facility] ICU CHEST PAIN,CAD [id number] 04/19/2018 10:29:00 04/19/2018 16:50:00 DIS Outpatient KASHIF GARCIAS MD [facility] ENDO SCREENING [id number] 04/14/2018 10:00:00 04/14/2018 10:18:00 DIS Outpatient KASHIF GARCIAS MD [facility] PREOP COLONOSCOPY [id number] 02/14/2018 13:36:00 02/14/2018 23:59:59 CLS Outpatient YENI AYALA DO [facility] LAB POSITIVE FAMILY HISTORY OF BRCA [id number] 07/11/2017 06:47:00 07/11/2017 14:19:00 DIS Outpatient NANCY ARREOLA MD [facility] CATH ABN STRESS,CAD,HTN [id number] 07/06/2017 11:10:00 07/06/2017 23:59:59 CLS Outpatient LORI MATAMOROS [facility] CARD I25.10 CAD [id number] 07/04/2017 08:36:00 07/04/2017 23:59:59 CLS Outpatient LORI MATAMOROS [facility] CARD CAD I25.10 [id number] 05/22/2016 20:55:00 05/23/2016 06:00:00 DIS Outpatient RACHEL HANKINS DO [facility] SLEEP KEVIN [id number] 05/05/2016 21:10:00 05/06/2016 06:30:00 DIS Outpatient RACHEL HANKINS DO [facility] SLEEP G47.33 [id number] 03/26/2016 14:15:00 03/26/2016 23:59:59 CLS Outpatient RACHEL HANKINS DO [facility] RT COPD,SOB,TOBACCO USE, OBESITY [id number] 03/23/2016 11:08:00 03/23/2016 23:59:59 CLS Outpatient RACHEL HANKINS DO [facility] RAD SOB,COPD,TOBACCO USE, OBESITY [id number] 10/09/2015 08:41:00 10/09/2015 23:59:59 CLS Outpatient MEAGHAN MORAN APRN [facility] RAD LUMBAR PAIN [id number] 05/28/2015 10:21:00 05/28/2015 18:15:00 DIS Outpatient NANCY ARREOLA MD [facility] CATH CAD,ABNORMAL STRESS,SOA, COPD,HLP [id number] 05/21/2015 08:46:00 05/21/2015 23:59:59 CLS Outpatient LORI MATAMOROS [facility] CARD CAD,HTN,HLP [id number] 06/15/2014 08:28:00 06/15/2014 23:59:59 CLS Outpatient NANCY ARREOLA MD [facility] LAB HYPERLIPIDEMIA [id number] 03/13/2014 12:09:00 03/13/2014 23:59:59 CLS Outpatient NANCY ARREOLA MD [facility] CARD CAD HTN HYPERLIPIDEMIA COPD [id number] 02/02/2013 07:24:00 02/02/2013 23:59:59 CLS Outpatient NANCY ARREOLA MD [facility] CARD DYSPNEA,CAD [id number] 12/07/2012 15:31:00 12/12/2012 10:55:00 DIS Inpatient YENI AYALA DO [facility] 4TH ACUTE BRONCHITIS [id number] 09/12/2012 10:00:00 Document Registration [id number] 09/08/2012 07:53:00 Document Registration [id number] 07/31/2012 09:36:00 Document Registration [id number] 07/04/2012 11:32:00 Document Registration 09/201609/29/2018 11:31:09 ACT Outpatient Yeni Ayala [id number] 06/19/2017 13:25:00 06/19/2017 23:59:59 CLS Outpatient [facility]
--- NOTE | 2018-09-30 18:38 | NUR ---
AMB TO ROOM NO CHNAGE FROM TRIAGE.
[2018-09-30] MEDS ORDERED: ALBU2.5V4 (18:44)
[2018-09-30] MEDS ORDERED: CODE118S4 (18:44)
[2018-09-30] MEDS ORDERED: CEFD300C3 (18:44)
[2018-09-30] MEDS ORDERED: DOXY100C2 (18:44)
[2018-09-30] MEDS ORDERED: methylPREDNISolone 125 MG (Solu-MEDROL) VIAL IV STA (19:24)
[2018-09-30] MEDS ORDERED: RT-ALBUTEROL/IPRATROPIUM 3 ML (DUONEB) VIAL INH ONE (19:30)
[2018-09-30 19:38] LABS: BASOPHILS % (AUTO) 0 % (0-10); EOSINOPHILS % (AUTO) 0 % (0-10); HEMATOCRIT 46 % (40-54); HEMOGLOBIN 15.8 G/DL (13.3-17.7); LYMPHOCYTES % (AUTO) 10 % (12-44); MEAN CORPUSCULAR HEMOGLOBIN 30 PG (25-34); MEAN CORPUSCULAR HGB CONC 34 G/DL (32-36); MEAN CORPUSCULAR VOLUME 89 FL (80-99); MEAN PLATELET VOLUME 10.3 FL (7.4-10.4); MONOCYTES # (AUTO) 1.3 X 10^3 (0.0-1.0); MONOCYTES % (AUTO) 13 % (0-12); NEUTROPHILS # (AUTO) 7.8 X 10^3 (1.8-7.8); NEUTROPHILS % (AUTO) 77 % (42-75); PLATELET COUNT 174 10^3/uL (130-400)
[2018-09-30 19:40] VITALS: BP 146/82
[2018-09-30] MEDS ORDERED: PROMETHAZINE/ CODEINE SYRUP 5 ML UDC PO ONE (19:45)
--- NOTE | 2018-09-30 19:48 | ED Respiratory ---
General Chief Complaint: Respiratory Problems Stated Complaint: CONGESTED,COUGH,FEVER Nursing Triage Note: ARRIVED VIA AMB TO TRIAGE. STATES HE WAS SEEN AT DR SPENCER YESTERDAY ET GIVEN A STEROID, ABX SHOT, TAKE HOME ABX, AND BREATHING TX. STATES HE IS NOT BETTER AND COUGHS SO HARD HE FEELS LIKE HE IS GOING TO PASS OUT. Source: patient, family Exam Limitations: no limitations History of Present Illness Date Seen by Provider: Sep 30, 2018 Time Seen by Provider: 19:20 Initial Comments Here with report of one week of cough and shortness of breath. Seen Dr. Ayala yesterday and did receive a shot of steroids as well as shot of antibiotics and initiated on cefdinir and doxycycline. He is also on promethazine with codeine cough syrup. Overall none of this is working today and he feels worse. He is coughing so hard that it feels like a pass out. Has some nausea. Gags when he coughs a lot. States he feels like maybe some of this is coming from upper respiratory but is wheezing in his lungs. Unsure about fever. He does have fever on arrival though. Timing/Duration: week, getting worse Severity: moderate Prior Episodes/Possible Cause: occasional episodes Modifying Factors: Improves With Albuterol Nebulizer; Worse With Coughing Associated Symptoms: cough, fever/chills, nasal congestion, shortness of breath , sore throat, wheezing Allergies and Home Medications Allergies Coded Allergies: Penicillins (Verified Allergy, Mild, 04/19/18) Home Medications Albuterol Sulfate 1 Puff Puff, 2 PUFF IH Q4H PRN for SHORTNESS OF BREATH, ( Reported) 1 PUFF = 90 MCG Aspirin 81 Mg Tab.chew, 81 MG PO DAILY, (Reported) Atorvastatin Calcium 40 Mg Tablet, 40 MG PO DAILY, (Reported) Lisinopril 10 Mg Tablet, 40 MG PO DAILY Prescribed by: YENI AYALA on 05/08/18 1257 Metformin HCl 500 Mg Tablet, 500 MG PO DAILY, (Reported) Metoprolol Tartrate 25 Mg Tablet, 25 MG PO BID, (Reported) Oseltamivir Phosphate 75 Mg Capsule, 75 MG PO BID Prescribed by: ROXANNA BUTTERFIELD on 09/30/18 2220 Pantoprazole Sodium 40 Mg Tablet.dr, 40 MG PO DAILY, (Reported) Prednisone 20 Mg Tab, 40 MG PO DAILY Prescribed by: ROXANNA BUTTERFIELD on 09/30/182219 Tiotropium Br/Olodaterol HCl 4 Gm Mist.inhal, 2 PUFF IH DAILY, (Reported) Patient Home Medication List Home Medication List Reviewed: Yes Review of Systems Review of Systems Constitutional: see HPI; No chills; fever EENTM: nose congestion, throat pain Respiratory: short of breath, wheezing Cardiovascular: No chest pain, No edema Gastrointestinal: No abdominal pain; nausea Genitourinary: no symptoms reported Musculoskeletal: no symptoms reported Skin: no symptoms reported All Other Systems Reviewed Negative Unless Noted: Yes Past Talcexa-Lxxaxc-Mxwfog Hx Past Med/Social Hx: Reviewed Nursing Past Med/Soc Hx Patient Social History Alcohol Use: Denies Use Recreational Drug Use: No Smoking Status: Never a Smoker Type Used: Cigarettes Former Smoker, Quit: Jul 11, 2008 Recent Foreign Travel: No Contact w/Someone Who Travel: No Recent Infectious Disease Expo: No Recent Hopitalizations: No Immunizations Up To Date Date of Pneumonia Vaccine: May 10, 2016 Date of Influenza Vaccine: May 03, 2018 Seasonal Allergies Seasonal Allergies: Yes Past Medical History Surgeries: Yes (shouolder bilat, hiatal hernia x3.lower herniax2,torn meniscus left) CABG, Coronary Stent Respiratory: Yes Sleep Apnea, COPD Currently Using CPAP: Yes Cardiac: Yes Coronary Artery Disease, High Cholesterol, Hypertension Neurological: Yes TIA Reproductive Disorders: No Sexually Transmitted Disease: No HIV/AIDS: No Gastrointestinal: No Musculoskeletal: Yes (arthritis on hands) Arthritis Endocrine: Yes Diabetes, Non-Insulin dep Loss of Vision: Bilateral Hearing Impairment: Hard of Hearing, Bilateral Hearing Aide Cancer: No Psychosocial: No Integumentary: No Blood Disorders: No Adverse Reaction/Blood Tranf: No (N/A) Family Medical History Reviewed Nursing Family Hx No Pertinent Family Hx Physical Exam Vital Signs - First Documented 09/30/18 09/30/18 18:18 20:54 Temp 98.6 Pulse 93 Resp 18 B/P (MAP) 165/87 (113) Pulse Ox 93 O2 Delivery Room Air O2 Flow Rate 2.00 Capillary Refill : Less Than 3 Seconds Height: 5'8.00" Weight: 238lbs. 5.0oz. 107.821230cq; 35.5 BMI Method:Stated General Appearance: WD/WN, mild distress HEENT: PERRL/EOMI, TMs normal, pharyngeal erythema, other (bilateral nasal congestion with erythema and clear rhinorrhea) Neck: full range of motion, supple Respiratory: no accessory muscle use, wheezing, expiration Cardiovascular: regular rate, rhythm, no murmur Gastrointestinal: non tender, soft Extremities: non-tender, normal inspection Neurologic/Psychiatric: alert, oriented x 3 Skin: normal color, warm/dry Focused Exam Lactate Level 09/30/18 19:33: Lactic Acid Level 2.31*H 09/30/18 21:21: Lactic Acid Level 1.52 Lactic Acid Level Laboratory Tests Test 09/30/18 19:33 09/30/18 21:21 Lactic Acid Level 2.31 MMOL/L (0.50-2.00) *H 1.52 MMOL/L (0.50-2.00) Progress/Results/Core Measures Suspected Sepsis Recent Fever Within 48 Hours: No Infection Criteria Present: Documented Infection New/Unexplained Altered Menta: No Sepsis Screen: No Definite Risk SIRS Temperature:98.6 Pulse: 93 Respiratory Rate: 18 Laboratory Tests 09/30/18 19:33: White Blood Count 10.0 Blood Pressure 165 /87 Mean: 113 09/30/18 19:33: Lactic Acid Level 2.31*H 09/30/18 21:21: Lactic Acid Level 1.52 Laboratory Tests 09/30/18 19:33: Creatinine 1.45H, INR Comment 1.0, Platelet Count 174, Total Bilirubin 0.8 Results/Orders Lab Results Laboratory Tests Test 09/30/18 18:14 09/30/18 19:33 09/30/18 21:21 09/30/18 21:40 Range/Units Lab Scanned Report Referred Lab Report [id number] White Blood Count 10.0 4.3-11.0 10^3/uL Red Blood Count 5.21 4.35-5.85 10^6/uL Hemoglobin 15.8 13.3-17.7 G/DL Hematocrit 46 40-54 % Mean Corpuscular Volume 89 80-99 FL Mean Corpuscular Hemoglobin 30 25-34 PG Mean Corpuscular Hemoglobin Concent 34 32-36 G/DL Red Cell Distribution Width 14.0 10.0-14.5 % Platelet Count 174 130-400 10^3/uL Mean Platelet Volume 10.3 7.4-10.4 FL Neutrophils (%) (Auto) 77 H 42-75 % Lymphocytes (%) (Auto) 10 L 12-44 % Monocytes (%) (Auto) 13 H 0-12 % Eosinophils (%) (Auto) 0 0-10 % Basophils (%) (Auto) 0 0-10 % Neutrophils # (Auto) 7.8 1.8-7.8 X 10^3 Lymphocytes # (Auto) 1.0 1.0-4.0 X 10^3 Monocytes # (Auto) 1.3 H 0.0-1.0 X 10^3 Eosinophils # (Auto) 0.0 0.0-0.3 10^3/uL Basophils # (Auto) 0.0 0.0-0.1 10^3/uL Prothrombin Time 13.7 12.2-14.7 SEC INR Comment 1.0 0.8-1.4 Activated Partial Thromboplast Time 25 24-35 SEC Sodium Level 140 135-145 MMOL/L Potassium Level 4.1 3.6-5.0 MMOL/L Chloride Level 105 98-107 MMOL/L Carbon Dioxide Level 21 21-32 MMOL/L Anion Gap 14 5-14 MMOL/L Blood Urea Nitrogen 26 H 7-18 MG/DL Creatinine 1.45 H 0.60-1.30 MG/DL Estimat Glomerular Filtration Rate 49 BUN/Creatinine Ratio 18 Glucose Level 107 H 70-105 MG/DL Lactic Acid Level 2.31 *H 1.52 0.50-2.00 MMOL/L Calcium Level 10.7 H 8.5-10.1 MG/DL Corrected Calcium 10.5 H 8.5-10.1 MG/DL Total Bilirubin 0.8 0.1-1.0 MG/DL Aspartate Amino Transf (AST/SGOT) 52 H 5-34 U/L Alanine Aminotransferase (ALT/SGPT) 81 H 0-55 U/L Alkaline Phosphatase 79 40-136 U/L Total Protein 7.8 6.4-8.2 GM/DL Albumin 4.3 3.2-4.5 GM/DL Urine Color YELLOW Urine Clarity CLEAR Urine pH 5 5-9 Urine Specific [place] 1.025 H 1.016-1.022 Urine Protein 1+ H NEGATIVE Urine Glucose (UA) 1+ H NEGATIVE Urine Ketones NEGATIVE NEGATIVE Urine Nitrite NEGATIVE NEGATIVE Urine Bilirubin NEGATIVE NEGATIVE Urine Urobilinogen NORMAL NORMAL MG/DL Urine Leukocyte Esterase 1+ H NEGATIVE Urine RBC (Auto) NEGATIVE NEGATIVE Urine RBC NONE /HPF Urine WBC 0-2 /HPF Urine Squamous Epithelial Cells RARE /HPF Urine Crystals NONE /LPF Urine Bacteria TRACE /HPF Urine Casts NONE /LPF Urine Mucus SMALL H /LPF Urine Culture Indicated CULTURE PENDING Micro Results Microbiology 09/30/18 Blood Culture - Preliminary, Resulted No growth 09/30/18 Blood Culture - Preliminary, Resulted No growth 09/30/18 Influenza Types A,B Antigen (JUAN JOSE) - Final, Complete 09/30/18 Urine Culture - Final, Complete NO GROWTH My Orders Orders - ROXANNA BUTTERFIELD MD Cbc With Automated Diff (09/30/18 19:24) Comprehensive Metabolic Panel (09/30/18:24) Blood Culture (09/30/18:24) Urinalysis (09/30/18:24) Urine Culture (09/30/18:24) Protime With Inr (09/30/18:) Partial Thromboplastin Time (09/30/18:24) Saline Lock/Iv-Start (09/30/18 19:24) Saline Lock/Iv-Start (09/30/18 19:24) Vital Signs Adult Sepsis Patie Q15M (09/30/18 19:24) O2 (09/30/18 19:24) Remove Rings In Anticipation O (09/30/18:24) Lactic Acid Analyzer (09/30/18:24) Chest Pa/Lat (2 View) (09/30/18 19:24) Albuterol/Ipra Inhalation Soln (Duoneb I (09/30/18 19:30) Methylprednisolone Sod Succ (Solu-Medrol (09/30/18 19:24) Svn Small Volume Nebulizer (09/30/18 19:24) Influenza A And B Antigens (09/30/18 19:24) Promethazine/ Codeine Syrup (Phenergan W (09/30/18 19:45) Saline Lock/Iv-Start (09/30/18 19:54) Ns Iv 1000 Ml (Sodium Chloride 0.9%) (09/30/18 19:54) Albuterol Pre-Mix Nebs (Rt) (Proventil (09/30/18 20:50) Svn Small Volume Nebulizer (09/30/18 20:50) Albuterol Pre-Mix Nebs (Rt) (Proventil (09/30/18 20:49) Ns Iv 1000 Ml (Sodium Chloride 0.9%) (09/30/18 21:13) Oseltamivir 75 Mg Capsule (Tamiflu 75 (09/30/18 22:15) Acetaminophen Tablet (Tylenol Tablet) (09/30/18 22:17) Medications Given in ED Vital Signs/I&O 09/30/18 09/30/18 09/30/18 09/30/18 18:18 19:40 19:52 20:54 Temp 98.6 100.2 Pulse 93 98 Resp 18 20 B/P (MAP) 165/87 (113) 146/82 (103) Pulse Ox 93 96 96 93 O2 Delivery Room Air Room Air Room Air Nasal Cannula O2 Flow Rate 2.00 09/30/18 09/30/18 22:16 22:45 Temp 100.3 100.0 Pulse 113 114 Resp 20 20 B/P (MAP) 159/76 166/81 (109) Pulse Ox 92 93 O2 Delivery Room Air Room Air Capillary Refill : Less Than 3 Seconds Blood Pressure Mean: 113 Progress Note : Progress Note Seen and evaluated. IV, labs, chest x-ray, influenza screen, Solu-Medrol 125 mg IV and Phenergan with codeine cough syrup 5 mL by mouth ordered. Monitor patient. 1949: Influenza a positive. Normal saline 1 L bolus ordered. Monitor patient. Lactic acid is elevated. We will repeat lactic acid after fluids. Doing a little better after breathing treatment although O2 sat 89% on room air. Placed on O2 via nasal cannula. 2044: Repeat albuterol 3 ordered. Monitor patient. 2214: Overall better. O2 sats remained 91-94% on room air. Does have fever noted. Tylenol 1 g by mouth. Tamiflu initiated. We will continue Tamiflu outpatient and initiate short course of steroids as well due to his history of emphysema. He has appointment with Dr. Ayala on Tuesday at 9 AM and he will keep that. I will send a copy of the chart to her. Discharged home with return precautions. Patient verbalize understanding instructions and agreement with plan. Diagnostic Imaging Diagonstic Imaging: Xray Plain Films/CT/US/NM/MRI: chest Comments [facility]. [place], [place] NAME: MARIA D [facility] REC#: [id number] PT STATUS: REG ER : 1955 PHYSICIAN: ROXANNA BUTTERFIELD MD ADMIT DATE: 09/30/18/ER Draft Date of Exam:09/30/18 CHEST PA/LAT (2 VIEW) INDICATION: Cough, congestion. EXAMINATION: PA and lateral chest at 8:16 p.m. FINDINGS: The heart size is within normal limits and stable when compared to 05/07/2018. The sternotomy wires and surgical clips, noted previously, are again evident and no different. There is chronic pulmonary disease but there is no sign of failure, pneumonia or a pleural effusion to indicate an acute abnormality However, in the interval since the prior study a small, 5 mm, density has developed in the left mid lung. This finding cannot be identified on the lateral view and may merely be secondary to superimposition. The possibly that there is a small parenchymal nodule in this area would be less likely but should still be considered. A nonemergent CT of the chest would be recommended for further study. The left hilum is prominent but no different than on the prior exam. The mediastinum is not widened. The osseous structures are intact. IMPRESSION: 1. There is evidence of prior cardiac surgery and chronic pulmonary disease but there is no acute abnormality identified. 2. The small opacity in the left midlung is of uncertain etiology. Considerations and recommendations as above. Dictated on workstation # [id number] Dict: 09/30/182032 Trans: 09/30/182041 [facility] [id number] Interpreted by: MARGARET GREER MD Electronically signed by: Departure Impression Primary Impression: Influenza A Additional Impressions: Acute bronchitis Qualified Codes: J20.8 - Acute bronchitis due to other specified organisms Pulmonary nodule, left Disposition: 01 HOME, SELF-CARE Condition: Stable Departure-Patient Inst. Decision time for Depature: 22:19 Referrals: YENI AYALA DO (PCP/Family) Primary Care Physician Patient Instructions: Flu, Adult (DC), Single Pulmonary Nodule, Acute Bronchitis, Adult (DC) Add. Discharge Instructions: All discharge instructions reviewed with patient and/or family. Voiced understanding. You will need evaluation of the pulmonary nodule as an outpatient. Dr. Ayala can set up CT scan and follow-up as needed. Take medications as directed. Return for worse pain, fever, vomiting, weakness, breathing problems or other concerns as needed. You may take Tylenol/acetaminophen 1000 mg every 8 hours as needed for fever or pain. You may take ibuprofen 600 mg every 8 hours as needed for fever or pain. Drink plenty of fluids and get plenty of rest. Keep appointment with Dr. Ayala as scheduled. Scripts Prednisone (Prednisone) 20 Mg Tab 40 MG PO DAILY, #6 TAB 0 Refills Prov: ROXANNA BUTTERFIELD MD 09/30/18 Oseltamivir Phosphate (Oseltamivir Phosphate) 75 Mg Capsule 75 MG PO BID, #9 CAP 0 Refills Prov: ROXANNA BUTTERFIELD MD 09/30/18 Copy Copies To 1: YENI AYALA TIMOTHY D MD Sep 30, 2018 19:48
[2018-09-30 19:49] LABS: PROTHROMBIN TIME PATIENT 13.7 SEC (12.2-14.7)
[2018-09-30] MEDS ORDERED: NS IV 1000 ML 1,000 ML IV ONE ×2 (19:54→21:13)
[2018-09-30 19:59] LABS: ALBUMIN 4.3 GM/DL (3.2-4.5); BILIRUBIN,TOTAL 0.8 MG/DL (0.1-1.0); CALCIUM 10.7 MG/DL (8.5-10.1); CREATININE SERUM 1.45 MG/DL (0.60-1.30); POTASSIUM 4.1 MMOL/L (3.6-5.0); TOTAL PROTEIN 7.8 GM/DL (6.4-8.2)
--- NOTE | 2018-09-30 20:42 | Diagnostic Imaging Report ---
INDICATION: Cough, congestion. EXAMINATION: PA and lateral chest at 8:16 p.m. FINDINGS: The heart size is within normal limits and stable when compared to 05/07/2018. The sternotomy wires and surgical clips, noted previously, are again evident and no different. There is chronic pulmonary disease but there is no sign of failure, pneumonia or a pleural effusion to indicate an acute abnormality However, in the interval since the prior study a small, 5 mm, density has developed in the left mid lung on the PA view. This finding cannot be identified on the lateral view and may merely be secondary to superimposition. The possibly that there is a small parenchymal nodule in this area would be less likely but should still be considered. A nonemergent CT of the chest would be recommended for further study. The left hilum is prominent but no different than on the prior exam. The mediastinum is not widened. The osseous structures are intact. IMPRESSION: 1. There is evidence of prior cardiac surgery and chronic pulmonary disease but there is no acute abnormality identified. 2. The small opacity in the left midlung is of uncertain etiology. Considerations and recommendations as above. Dictated by: Dictated on workstation # [id number]
[2018-09-30] MEDS ORDERED: RT-ALBUTEROL SULF 2.5 MG/3 ML PRE-MIX VIAL ONE (20:49)
[2018-09-30] MEDS ORDERED: RT-ALBUTEROL SULF 2.5 MG/3 ML PRE-MIX VIAL INH STA (20:50)
[2018-09-30 21:46] LABS: BILIRUBIN,URINE NEGATIVE (NEGATIVE); CLARITY,URINE CLEAR; COLOR,URINE YELLOW; GLUCOSE, URINE (UA) 1+ (NEGATIVE); KETONES,URINE NEGATIVE (NEGATIVE); LEUKOCYTE ESTERASE ,URINE 1+ (NEGATIVE); NITRITE,URINE NEGATIVE (NEGATIVE); PH,URINE 5 (5-9); PROTEIN,URINE 1+ (NEGATIVE); UROBILINOGEN,URINE NORMAL (NORMAL)
[2018-09-30 21:52] LABS: BACTERIA,URINE TRACE /HPF; SQUAMOUS EPITHELIAL CELL,UR RARE /HPF; WBC,URINE 0-2 /HPF
[2018-09-30] MEDS ORDERED: OSELTAMIVIR 75 MG (TAMIFLU) CAPSULE PO ONE (22:15)
[2018-09-30] MEDS ORDERED: ACETAMINOPHEN 500 MG TAB (TYLENOL) PO STA (22:17)
[2018-09-30] MEDS ORDERED: PRD20T PO (22:20)
[2018-09-30] MEDS ORDERED: OSEL75CA15 PO (22:20)
[2018-09-30 22:45] VITALS: BP 166/81
== END 2018-09-30 22:45 | disposition home or self-care (01) ==
LOC: EDUNIT# 18:13 → ER 18:14
DX: J10.1 Influenza due to other identified influenza virus with other respiratory manifestations (principal); J44.1 Chronic obstructive pulmonary disease with (acute) exacerbation; J20.9 Acute bronchitis, unspecified; R91.1 Solitary pulmonary nodule; G47.30 Sleep apnea, unspecified; I25.10 Atherosclerotic heart disease of native coronary artery without angina pectoris; E78.00 Pure hypercholesterolemia, unspecified; I10 Essential (primary) hypertension; E11.9 Type 2 diabetes mellitus without complications; Z86.73 Personal history of transient ischemic attack (TIA), and cerebral infarction without residual deficits; Z88.0 Allergy status to penicillin; Z79.51 Long term (current) use of inhaled steroids; Z79.82 Long term (current) use of aspirin; Z79.84 Long term (current) use of oral hypoglycemic drugs; Z87.891 Personal history of nicotine dependence; Z95.1 Presence of aortocoronary bypass graft; Z95.5 Presence of coronary angioplasty implant and graft; Z98.890 Other specified postprocedural states
CPT/HCPCS: 36415; 71046; 80053; 81000; 83605; 85025; 85610; 85730; 87040; 87088; 87804; 94640

== ENCOUNTER → 2018-10-06 | Outpatient (CLI) | payer OTHER ==
[~2018-10-06] MED LIST changes: +ALBU2.5V4; +CEFD300C3; +CODE118S4; +DOXY100C2; +HOLD METFORMIN - RECEIVED CONTRAST 20 ML VIAL IV SCH; +OSEL75CA15 PO; +PRD20T PO
[2018-10-06] MEDS: IOHEXOL 350 MG/ML 100 ML (OMNIPAQUE 350) VIAL IV ONE (08:49)
[2018-10-06] MEDS: NS 100 ML (IVPB) BAG IV ONE (08:49)
--- NOTE | 2018-10-06 09:45 | Diagnostic Imaging Report ---
PROCEDURE: CT chest with contrast only. TECHNIQUE: Multiple contiguous axial images were obtained through the chest after administration of intravenous contrast. INDICATION: Pulmonary nodules noted on recent chest x-ray. The study is performed for further evaluation. Correlation is made with chest radiograph from 09/30/2018. No axillary lymphadenopathy is seen. No mediastinal lymphadenopathy is identified. There are small lymph nodes in the olga bilaterally, largest on the left measuring 14 mm x 11 mm. No pericardial or pleural fluid is detected. There are changes of median sternotomy and CABG. Parenchymal evaluation does show some bullous changes in the upper lobes. The central airways are patent. No parenchymal nodule is identified to account for the density noted on recent chest x-ray. Upper abdomen does demonstrate some generalized low density throughout the liver consistent with hepatic steatosis. IMPRESSION: Essentially unremarkable CT of the chest apart from some mild emphysematous changes. No parenchymal nodule is seen to account for the chest x-ray abnormality. Dictated by: Dictated on workstation # [id number]
== END ==
LOC: RAD 08:34
PROVIDERS: ATTEND Family Medicine
DX: R91.8 Other nonspecific abnormal finding of lung field (principal); Z95.1 Presence of aortocoronary bypass graft
CPT/HCPCS: 71260

== ENCOUNTER → 2019-04-26 | Outpatient (CLI) | payer MEDICARE, OTHER ==
[~2019-04-26] MED LIST changes: -HOLD METFORMIN - RECEIVED CONTRAST 20 ML VIAL IV SCH
== END ==
LOC: CARD 11:35
PROVIDERS: ATTEND Internal Medicine Cardiovascular Disease
DX: I35.1 Nonrheumatic aortic (valve) insufficiency (principal); I51.7 Cardiomegaly; E78.5 Hyperlipidemia, unspecified; I10 Essential (primary) hypertension; I65.29 Occlusion and stenosis of unspecified carotid artery; I25.10 Atherosclerotic heart disease of native coronary artery without angina pectoris; G47.33 Obstructive sleep apnea (adult) (pediatric)
CPT/HCPCS: 93306

== ENCOUNTER → 2019-05-10 | Outpatient (CLI) | payer MEDICARE, OTHER ==
--- NOTE | 2019-05-10 08:59 | Diagnostic Imaging Report ---
Indication: Back pain Thoracic spine AP and lateral views of the thoracic spine shows mild spondylosis. Vertebral body height and alignment are normal. Disc spaces are normal. IMPRESSION: Minimal spondylosis. No acute abnormalities. Dictated by: Dictated on workstation # [id number]
--- NOTE | 2019-05-10 09:00 | Diagnostic Imaging Report ---
INDICATION: Back pain AP and lateral views of the lumbar spine are obtained. Lumbar spinal curvature and alignment are unremarkable. Vertebral body heights are maintained. There is sclerosis about the L4-L5 and L5-S1 facet joints. Diffuse atherosclerotic calcification is seen. No definite acute fracture is identified. IMPRESSION: Lower lumbar degenerative facet arthropathy and mild diffuse lumbar spondylosis. Otherwise, there is no radiographic evidence of acute lumbar spinal abnormality. Dictated by: Dictated on workstation # [id number]
== END ==
LOC: RAD 08:31
PROVIDERS: ATTEND Chiropractor Sports Physician
DX: M47.816 Spondylosis without myelopathy or radiculopathy, lumbar region (principal); M46.86 Other specified inflammatory spondylopathies, lumbar region; Z80.8 Family history of malignant neoplasm of other organs or systems
CPT/HCPCS: 72072; 72100

== ENCOUNTER → 2019-08-15 | Outpatient (CLI) | payer MEDICARE, OTHER ==
--- NOTE | 2019-08-15 14:11 | Diagnostic Imaging Report ---
INDICATION: Fall with injury to the left shoulder. TIME OF EXAM: 1:50 p.m. FINDINGS: Three views of the left shoulder were obtained. Glenohumeral and acromioclavicular alignment are normal. There are some hypertrophic degenerative changes at the acromioclavicular joint. There is also some narrowing of the acromiohumeral space suggestive of rotator cuff arthropathy. No fracture or dislocation is seen. IMPRESSION: Chronic changes. No acute bony abnormality is detected. Dictated by: Dictated on workstation # [id number]
== END ==
LOC: RAD 13:34
PROVIDERS: ATTEND Family Medicine
DX: S49.92XA Unspecified injury of left shoulder and upper arm, initial encounter (principal); M19.012 Primary osteoarthritis, left shoulder; W19.XXXA Unspecified fall, initial encounter
CPT/HCPCS: 73030

== ENCOUNTER 2019-10-15 14:14 | Outpatient (RCR) | payer MEDICARE, OTHER | END 2019-12-30 | disposition home or self-care (01) | PROVIDERS: ATTEND Nurse Practitioner Family | DX: M19.011 Primary osteoarthritis, right shoulder (principal); M19.022 Primary osteoarthritis, left elbow; I10 Essential (primary) hypertension; E11.9 Type 2 diabetes mellitus without complications; J43.9 Emphysema, unspecified; Z95.1 Presence of aortocoronary bypass graft; Z98.890 Other specified postprocedural states ==

== ENCOUNTER 2020-02-25 09:48 | Outpatient (RCR) | payer MEDICARE, OTHER | END 2020-03-17 15:38 | disposition home or self-care (01) | PROVIDERS: ATTEND Nurse Practitioner Family | DX: M19.011 Primary osteoarthritis, right shoulder (principal); M19.022 Primary osteoarthritis, left elbow; I10 Essential (primary) hypertension; E11.9 Type 2 diabetes mellitus without complications; J43.9 Emphysema, unspecified; Z95.1 Presence of aortocoronary bypass graft; Z98.890 Other specified postprocedural states ==

== ENCOUNTER → 2020-04-24 | Outpatient (CLI) | payer MEDICARE, OTHER ==
[~2020-04-24] MED LIST changes: +ATOR10TA66; +ATOR20TA66 PO; +CALC-250 PO; +CELE-63 PO; +CETI10TA49 PO; +HYDR-3820 PO; +LEVO25TA80 PO; +LISI40TA PO; +OMEG-177 PO; +PANT40TA2 PO; -PANT40TA3 PO; +PANT40TA52 PO; +SERT50TA9 PO; +TRAM50TA3 PO; +UMEC1BLS IH
--- NOTE | 2020-04-24 20:25 | NUR ---
Notified patient of positive COVID test. Answered questions and explained isolation and quarantine.
== END ==
LOC: LABNPT 05:50
PROVIDERS: ATTEND Family Medicine
DX: U07.1 COVID-19 (principal); J06.9 Acute upper respiratory infection, unspecified
CPT/HCPCS: 87635

== ENCOUNTER 2020-04-27 09:05 | Inpatient (IN) | payer MEDICARE, OTHER ==
[~2020-04-27] VITALS: Ht 170 cm; Wt 95.2 kg
[2020-04-27] VITALS (8 sets, daily range): BP systolic 129–152; BP diastolic 78–88
[~2020-04-27 09:05] MED LIST changes: -ATOR10TA66; -ATOR20TA66 PO; -CALC-250 PO; -CELE-63 PO; -CETI10TA49 PO; -HYDR-3820 PO; -LEVO25TA80 PO; -LISI40TA PO; -OMEG-177 PO; -PANT40TA2 PO; -SERT50TA9 PO; -TRAM50TA3 PO; -UMEC1BLS IH
[2020-04-27] MEDS ORDERED: RT-ALBUTEROL INHALER HFA (VENTOLIN HFA) 18 GM IH ONE (09:27)
[2020-04-27] MEDS ORDERED: LACTATED RINGERS 1,000 ML IV ONE ×2 (09:48→14:50)
[2020-04-27] MEDS ORDERED: LACTATED RINGERS 1,000 ML IV STA (09:50)
[2020-04-27 10:00] LABS: BASOPHILS % (AUTO) 0 % (0-10); EOSINOPHILS % (AUTO) 0 % (0-10); HEMATOCRIT 44 % (40-54); HEMOGLOBIN 14.9 g/dL (13.3-17.7); LYMPHOCYTES # (AUTO) 0.8 10^3/uL (1.0-4.0); LYMPHOCYTES % (AUTO) 7 % (12-44); MEAN CORPUSCULAR HEMOGLOBIN 28 pg (25-34); MEAN CORPUSCULAR HGB CONC 34 g/dL (32-36); MEAN CORPUSCULAR VOLUME 83 fL (80-99); MEAN PLATELET VOLUME 10.6 fL (9.0-12.2); MONOCYTES # (AUTO) 0.3 10^3/uL (0.0-1.0); MONOCYTES % (AUTO) 2 % (0-12); NEUTROPHILS # (AUTO) 10.7 10^3/uL (1.8-7.8); NEUTROPHILS % (AUTO) 87 % (42-75); PLATELET COUNT 307 10^3/uL (130-400); WHITE BLOOD COUNT 12.3 10^3/uL (4.3-11.0)
[2020-04-27 10:07] LABS: ALBUMIN 3.8 GM/DL (3.2-4.5); CHLORIDE 100 MMOL/L (98-107); INR 1.2 (0.8-1.4); POTASSIUM 3.6 MMOL/L (3.6-5.0); PROTHROMBIN TIME PATIENT 15.3 SEC (12.2-14.7); SODIUM 136 MMOL/L (135-145)
--- NOTE | 2020-04-27 10:08 | ED General ---
General Chief Complaint: Respiratory Problems Stated Complaint: COVID POSITIVE - SOA / CHEST PAIN Source of Information: Patient Exam Limitations: No Limitations History of Present Illness Date Seen by Provider: Apr 27, 2020 Time Seen by Provider: 09:20 Initial Comments Here with report of chest discomfort with deep breathing and significant shortness of air. Patient is positive for COVID-19. Onset of symptoms around 04/21 or 04/22. Tested and found positive on April 24. States that he had increasing shortness of air overnight. Does have history of emphysema. Does have recent shoulder surgery on 04/18. His left arm is in a sling due to the shoulder surgery. Reports pain with any deep breathing. Denies nausea or vomiting. Arrives with O2 sat in the mid 60s on room air. He has albuterol inhaler at home and used it last this morning. Timing/Duration: 5-6 Days, Getting Worse Severity: Severe Associated Systoms: Chest Pain, Cough, Fever/Chills; No Nausea/Vomiting; Shortness of Air, Weakness Allergies and Home Medications Allergies Coded Allergies: Penicillins (Verified Allergy, Mild, 04/19/18) Home Medications Albuterol Sulfate 1 Puff Puff, 2 PUFF IH Q4H PRN for SHORTNESS OF BREATH, (Rep orted) 1 PUFF = 90 MCG Aspirin 81 Mg Tab.chew, 81 MG PO DAILY, (Reported) Atorvastatin Calcium 40 Mg Tablet, 40 MG PO DAILY, (Reported) Lisinopril 10 Mg Tablet, 40 MG PO DAILY Prescribed by: YENI RUVALCABA on 05/08/18 1257 Metformin HCl 500 Mg Tablet, 500 MG PO DAILY, (Reported) Metoprolol Tartrate 25 Mg Tablet, 25 MG PO BID, (Reported) Oseltamivir Phosphate 75 Mg Capsule, 75 MG PO BID Prescribed by: ROXANNA BUTTERFIELD on 09/30/182219 Pantoprazole Sodium 40 Mg Tablet.dr, 40 MG PO DAILY, (Reported) Prednisone 20 Mg Tab, 40 MG PO DAILY Prescribed by: ROXANNA BUTTERFIELD on 09/30/182219 Tiotropium Br/Olodaterol HCl 4 Gm Mist.inhal, 2 PUFF IH DAILY, (Reported) Patient Home Medication List Home Medication List Reviewed: Yes Review of Systems Review of Systems Constitutional: see HPI, chills, fever, malaise, weakness EENTM: nose congestion; No throat pain Respiratory: short of breath, wheezing Cardiovascular: chest pain (with deep breathing); No edema Gastrointestinal: No abdominal pain, No nausea, No vomiting Genitourinary: no symptoms reported Musculoskeletal: No back pain, No muscle pain Skin: no symptoms reported Psychiatric/Neurological: No Symptoms Reported All Other Systems Reviewed Negative Unless Noted: Yes Past Idmgoxe-Wevwld-Tebcdn Hx Past Med/Social Hx: Reviewed Nursing Past Med/Soc Hx Patient Social History Alcohol Use: Denies Use Recreational Drug Use: No Smoking Status: Former Smoker Type Used: Cigarettes Former Smoker, Quit: Jul 11, 2008 Recent Hopitalizations: No Immunizations Up To Date Date of Pneumonia Vaccine: May 10, 2016 Date of Influenza Vaccine: May 03, 2018 Seasonal Allergies Seasonal Allergies: Yes Past Medical History Surgeries: Yes (shouolder bilat, hiatal hernia x3.lower herniax2,torn meniscus left) CABG, Coronary Stent Respiratory: Yes Sleep Apnea, COPD Currently Using CPAP: Yes Cardiac: Yes Coronary Artery Disease, High Cholesterol, Hypertension Neurological: Yes TIA Reproductive Disorders: No Sexually Transmitted Disease: No HIV/AIDS: No Gastrointestinal: No Musculoskeletal: Yes (arthritis on hands) Arthritis Endocrine: Yes Diabetes, Non-Insulin dep Loss of Vision: Bilateral Hearing Impairment: Hard of Hearing, Bilateral Hearing Aide Cancer: No Psychosocial: No Integumentary: No Blood Disorders: No Adverse Reaction/Blood Tranf: No (N/A) Family Medical History Reviewed Nursing Family Hx No Pertinent Family Hx Physical Exam-Suspected Sepsis Physical Exam Vital Signs Vital Signs - First Documented 04/27/20 09:40 Temp 37.1 Pulse 110 Resp 18 B/P (MAP) 129/88 (102) Pulse Ox 93 O2 Delivery Vapotherm Capillary Refill : Height, Weight, BMI Height: 5'8.00" Weight: 238lbs. 5.0oz. 107.142045jx; 35.5 BMI Method:Stated General Appearance: WD/WN, Moderate Distress HEENT: PERRL/EOMI, Pharyngeal Erythema Neck: Non Tender, Supple Respiratory: Decreased Breath Sounds, Respiratory Distress (moderate with O2 sat 88% on high flow mask) Cardiovascular: No Murmur, Tachycardia Gastrointestinal: Non Tender, Soft Back: Normal Inspection, No CVA Tenderness, No Vertebral Tenderness Extremity: Normal Range of Motion, Non Tender, Other (surgical wound covered with dressing to the left anterior shoulder) Neurologic/Psychiatric: Alert, Oriented x3 Skin: normal color, warm/dry Focused Exam Lactate Level 04/27/20 09:44: Lactic Acid Level 3.01*H 04/27/20 12:39: Lactic Acid Level 2.71*H Lactic Acid Level Laboratory Tests Test 04/27/20 12:39 Lactic Acid Level 2.71 MMOL/L (0.50-2.00) *H Progress/Results/Core Measures Suspected Sepsis SIRS Temperature: Pulse: Respiratory Rate: Laboratory Tests 04/27/20 09:44: White Blood Count 12.3H Blood Pressure / Mean: 04/27/20 09:44: Lactic Acid Level 3.01*H 04/27/20 12:39: Lactic Acid Level 2.71*H Laboratory Tests 04/27/20 09:44: Creatinine 1.09, INR Comment 1.2, Platelet Count 307, Total Bilirubin 1.8H Results/Orders Lab Results Laboratory Tests Test 04/27/20 09:44 04/27/20 10:15 04/27/20 12:39 04/27/20 13:00 Range/Units White Blood Count 12.3 H 4.3-11.0 10^3/uL Red Blood Count 5.33 4.30-5.52 10^6/uL Hemoglobin 14.9 13.3-17.7 g/dL Hematocrit 44 40-54 % Mean Corpuscular Volume 83 80-99 fL Mean Corpuscular Hemoglobin 28 25-34 pg Mean Corpuscular Hemoglobin Concent 34 32-36 g/dL Red Cell Distribution Width 13.4 10.0-14.5 % Platelet Count 307 130-400 10^3/uL Mean Platelet Volume 10.6 9.0-12.2 fL Immature Granulocyte % (Auto) 4 % Neutrophils (%) (Auto) 87 H 42-75 % Lymphocytes (%) (Auto) 7 L 12-44 % Monocytes (%) (Auto) 2 0-12 % Eosinophils (%) (Auto) 0 0-10 % Basophils (%) (Auto) 0 0-10 % Neutrophils # (Auto) 10.7 H 1.8-7.8 10^3/uL Lymphocytes # (Auto) 0.8 L 1.0-4.0 10^3/uL Monocytes # (Auto) 0.3 0.0-1.0 10^3/uL Eosinophils # (Auto) 0.0 0.0-0.3 10^3/uL Basophils # (Auto) 0.0 0.0-0.1 10^3/uL Immature Granulocyte # (Auto) 0.5 H 0.0-0.1 10^3/uL Neutrophils % (Manual) 87 % Lymphocytes % (Manual) 7 % Monocytes % (Manual) 3 % Myelocytes % 1 % Band Neutrophils 1 % Atypical Lymphocytes 1 % Blood Morphology Comment NORMAL Prothrombin Time 15.3 H 12.2-14.7 SEC INR Comment 1.2 0.8-1.4 Activated Partial Thromboplast Time 23 L 24-35 SEC Sodium Level 136 135-145 MMOL/L Potassium Level 3.6 3.6-5.0 MMOL/L Chloride Level 100 98-107 MMOL/L Carbon Dioxide Level 18 L 21-32 MMOL/L Anion Gap 18 H 5-14 MMOL/L Blood Urea Nitrogen 31 H 7-18 MG/DL Creatinine 1.09 0.60-1.30 MG/DL Estimat Glomerular Filtration Rate > 60 BUN/Creatinine Ratio 28 Glucose Level 136 H 70-105 MG/DL Lactic Acid Level 3.01 *H 2.71 *H 0.50-2.00 MMOL/L Calcium Level 9.2 8.5-10.1 MG/DL Corrected Calcium 9.4 8.5-10.1 MG/DL Total Bilirubin 1.8 H 0.1-1.0 MG/DL Aspartate Amino Transf (AST/SGOT) 53 H 5-34 U/L Alanine Aminotransferase (ALT/SGPT) 46 0-55 U/L Alkaline Phosphatase 91 40-136 U/L C-Reactive Protein High Sensitivity 11.72 H 0.00-0.50 MG/DL Total Protein 8.4 H 6.4-8.2 GM/DL Albumin 3.8 3.2-4.5 GM/DL Procalcitonin 0.27 H <0.10 NG/ML Blood Gas Puncture Site RRadial Blood Gas Patient Temperature 98.9 Arterial Blood pH 7.49 H 7.37-7.43 Arterial Blood Partial Pressure CO2 26 L 35-45 MMHG Arterial Blood Partial Pressure O2 68 L 79-93 MMHG Arterial Blood HCO3 20 L 23-27 MMOL/L Arterial Blood Total CO2 20.3 L 21.0-31.0 MMOL/L Arterial Blood Oxygen Saturation 93 L 94-100 % Arterial Blood Base Excess -3.4 L -2.5-2.5 MMOL/L Peter Test POS Blood Gas Ventilator Setting NO Blood Gas Inspired Oxygen 40L D-Dimer 8.96 H 0.00-0.49 UG/ML Test 04/27/20 14:10 Range/Units Urine Color AIDEE H Urine Clarity CLEAR Urine pH 6.0 5-9 Urine Specific [place] 1.025 H 1.016-1.022 Urine Protein 2+ H NEGATIVE Urine Glucose (UA) NEGATIVE NEGATIVE Urine Ketones 1+ H NEGATIVE Urine Nitrite NEGATIVE NEGATIVE Urine Bilirubin NEGATIVE NEGATIVE Urine Urobilinogen 1.0 < = 1.0 MG/DL Urine Leukocyte Esterase NEGATIVE NEGATIVE Urine RBC (Auto) NEGATIVE NEGATIVE Urine RBC NONE /HPF Urine WBC 0-2 /HPF Urine Crystals PRESENT H /LPF Urine Amorphous Sediment RARE MARIEL URATES H /LPF Urine Bacteria TRACE /HPF Urine Casts PRESENT /LPF Urine Coarse Granular Casts 2-5 H /LPF Urine Mucus LARGE H /LPF Urine Culture Indicated NO My Orders Orders - ROXANNA BUTTERFIELD MD Albuterol Inhaler (Ventolin Hfa) (04/27/20 09:27) Dexamethasone Injection (Decadron Inje (04/27/20 09:27) Cbc With Automated Diff (04/27/20 09:50) Comprehensive Metabolic Panel (04/27/20 09:50) Blood Culture (04/27/20 09:50) Sputum Culture (04/27/20 09:50) Urinalysis (04/27/20 09:50) Urine Culture (04/27/20 09:50) Protime With Inr (04/27/20 09:50) Partial Thromboplastin Time (04/27/20 09:50) Chest 1 View, Ap/Pa Only (04/27/20 09:50) Ed Iv/Invasive Line Start (04/27/20 09:50) Ed Iv/Invasive Line Start (04/27/20 09:50) Vital Signs Adult Sepsis Patie Q15M (04/27/20 09:50) O2 (04/27/20 09:50) Remove Rings In Anticipation O (04/27/20 09:50) Lactic Acid Analyzer (04/27/20 09:50) Lactated Ringers (Lr 1000 Ml Iv Solution (04/27/20 09:50) Hs C Reactive Protein (04/27/20 09:50) Procalcitonin (Pct) (04/27/20 09:50) Arterial Blood Gas (04/27/20 09:50) Lactated Ringers (Lr 1000 Ml Iv Solution (04/27/20 09:48) Manual Differential (04/27/20 09:44) Azithromycin Injection (Zithromax Inject (04/27/20 14:05) Ceftriaxone For Iv Use (Rocephin For I (04/27/20 14:05) Convalescent Plasma (04/27/20 14:43) Abo Rh Type (04/27/20 14:43) Lactated Ringers (Lr 1000 Ml Iv Solution (04/27/20 14:50) Medications Given in ED Current Medications Medications Dose Ordered Sig/Akshat Route Start Time Stop Time Status Last Admin Dose Admin Albuterol Sulfate 18 gm STK-MED ONCE IH 04/27/20 09:27 04/27/20 09:33 DC 04/27/20 09:59 18 GM Dexamethasone Sodium Phosphate 10 mg STK-MED ONCE .ROUTE 04/27/20 09:27 04/27/20 09:34 DC 04/27/20 09:58 10 MG Lactated Ringer's 1,000 ml @ 200 mls/hr Q5H ONCE IV 04/27/20 14:50 04/27/20 19:49 04/27/20 15:17 200 MLS/HR Vital Signs/I&O 04/27/20 09:40 Temp 37.1 Pulse 110 Resp 18 B/P (MAP) 129/88 (102) Pulse Ox 93 O2 Delivery Vapotherm Capillary Refill : Progress Note : Progress Note Seen and evaluated shortly after arrival. Placed on oxygen mask at 15 L which did improve his O2 saturations. Sepsis protocol initiated. Patient is known COVID-19 positive. Decadron 10 mg IV ordered. Albuterol metered-dose inhaler administered via AeroChamber 5 doses which did help some. Patient was switched to Vapotherm at 40 L and 100% which did improve his O2 saturation to 94%. Patient states he is feeling a little better. Repeat albuterol treatments given with 2 puffs every 5 minutes 3. LR 1 L bolus ordered. Monitor patient. 1445: Patient staying reasonably stable on Vapotherm at 40 L and 100%. I did decrease settings to 35 L and 75% which keeps his O2 sat at 92%. We did repeat albuterol MDI 2 puffs via chamber. I did discuss with the patient regarding Remdesivir treatment and as well as, was a plasma after discussion with Dr. Sidhu. I did review risk and benefits of both products including severe reaction, infection and liver damage as well as possible benefits. Patient readily accepted treatment with both options which were ordered by me and Dr. Sidhu. Patient accepts admission to ICU. Currently on ICU bed hold and patient will have to remain in the emergency department until bed clears at shift change or after. We will continue current therapy and monitoring and initiate medications as ordered. I did discuss the case with Dr. Sidhu who accepts patient for admission to the ICU. Inpatient status. Patient agrees with plan. Diagnostic Imaging Diagonstic Imaging: Xray Plain Films/CT/US/NM/MRI: chest Comments [facility] [place], [place] NAME: MARIA D HIGHTOWER [facility] REC#: [id number] PT STATUS: REG ER : 1955 PHYSICIAN: ROXANNA BUTTERFIELD MD ADMIT DATE: 04/27/20/ER Signed Date of Exam:04/27/20 CHEST 1 VIEW, AP/PA ONLY Indication: Dyspnea, sepsis. Comparison: 09/30/2018. Discussion: Single portable upright view of the chest was obtained. Normal heart size. Median sternotomy is stable. Groundglass infiltrates are noted within the bilateral mid to lower lungs consistent with history of viral pneumonia. No pleural fluid or pneumothorax. Bilateral shoulder arthroplasties are noted. Impression: 1. Groundglass infiltrates noted within the bilateral mid to lower lungs, consistent with history of viral pneumonia. Dictated by: Dictated on workstation # [id number] Dict: 04/27/20 1018 Trans: 04/27/20 1050 [facility] [id number] Interpreted by: AJAY LIN MD Electronically signed by: AJAY LIN MD 04/27/20 1050 Reviewed: Reviewed by Me Departure Communication (Admissions) Time/Spoke to Admitting Phy: 14:40 Impression Primary Impression: Respiratory tract infection due to severe acute respiratory syndrome coronavirus 2 (SARS-CoV-2) Additional Impressions: Pneumonia due to COVID-19 virus Respiratory distress Hypoxia Disposition: 09 ADMITTED INPATIENT Condition: Stable Admissions Decision to Admit Reason: Admit from ER (General) Decision to Admit/Date: Apr 27, 2020 Time/Decision to Admit Time: 14:40 ROXANNA BUTTERFIELD MD Apr 27, 2020 10:08
[2020-04-27 10:09] LABS: CALCIUM 9.2 MG/DL (8.5-10.1)
[2020-04-27 10:10] LABS: GLUCOSE 136 MG/DL (70-105); TOTAL PROTEIN 8.4 GM/DL (6.4-8.2)
[2020-04-27 10:11] LABS: CARBON DIOXIDE 18 MMOL/L (21-32)
[2020-04-27 10:12] LABS: BILIRUBIN,TOTAL 1.8 MG/DL (0.1-1.0)
[2020-04-27 10:13] LABS: ALKALINE PHOSPHATASE 91 U/L (40-136); CREATININE SERUM 1.09 MG/DL (0.60-1.30); GFR ESTIMATED > 60
[2020-04-27 10:14] LABS: ATYPICAL LYMPHOCYTES 1 %; BAND NEUTROPHILS 1 %; BUN/CREATININE RATIO 28; LYMPHOCYTES % (MANUAL) 7 %; MONOCYTES % (MANUAL) 3 %; MYELOCYTES % 1 %; NEUTROPHILS % (MANUAL) 87 %; RBC MORPH NORMAL
[2020-04-27 10:16] LABS: ALANINE AMINOTRANSFERASE 46 U/L (0-55)
[2020-04-27 10:29] LABS: ABG BASE EXCESS -3.4 MMOL/L (-2.5-2.5); ABG OXYGEN SATURATION 93 % (94-100); ABG PCO2 26 MMHG (35-45); ABG PH 7.49 (7.37-7.43); ABG PO2 68 MMHG (79-93); ABG TCO2 20.3 MMOL/L (21.0-31.0); ALLENS TEST POS; INSPIRED O2 40L; PATIENT TEMP 98.9; VENTILATOR NO
--- NOTE | 2020-04-27 10:30 | NUR ---
RT AT PT BEDSIDE ADMINISTIRING 3 PUFF VENTOLIN INHALER TO PT VIA SPACER.
--- NOTE | 2020-04-27 10:32 | Diagnostic Imaging Report ---
Indication: Dyspnea, sepsis. Comparison: 09/30/2018. Discussion: Single portable upright view of the chest was obtained. Normal heart size. Median sternotomy is stable. Groundglass infiltrates are noted within the bilateral mid to lower lungs consistent with history of viral pneumonia. No pleural fluid or pneumothorax. Bilateral shoulder arthroplasties are noted. Impression: 1. Groundglass infiltrates noted within the bilateral mid to lower lungs, consistent with history of viral pneumonia. Dictated by: Dictated on workstation # [id number]
--- NOTE | 2020-04-27 11:00 | NUR ---
PT LAYING IN COT RESTING AT THIS TIME. REPORTS NO NEW NEEDS AT THIS TIME.
--- NOTE | 2020-04-27 12:20 | NUR ---
PT ASSITED TO STANDING POSITION ON SIDE OF BED TO USE URINAL AT THIS TIME.
--- NOTE | 2020-04-27 13:03 | NUR ---
PT KARYNA CALLED FOR UPDATE AT THIS TIME.
--- NOTE | 2020-04-27 14:00 | NUR ---
DR BUTTERFIELD AT PT BEDSIDE AT THIS TIME ADMINISTIRING 3 PUFFS OF VENTOLIN INHALER VIA SPACER. PT DENIES ANY CURRENT NEEDS AT THIS TIME. PT UPDATED WITH CURRENT ADMISSION PROGRESS AND PLAN OF CARE.
[2020-04-27] MEDS ORDERED: AZITHROMYCIN INJECTION 500 MG in NS (IVPB) 250 ML IV STA (14:05)
[2020-04-27] MEDS ORDERED: cefTRIAXone FOR IV USE 1,000 MG in WATER (STERILE) FOR INJECTION 10 ML IV STA (14:05)
--- NOTE | 2020-04-27 14:20 | NUR ---
PT VAPOTHERM SETTING CHANGED TO 35 LPM ABD 75% O2 AT THIS TIME PER DR BUTTERFIELD.
[2020-04-27 14:36] LABS: BILIRUBIN,URINE NEGATIVE (NEGATIVE); CLARITY,URINE CLEAR; COLOR,URINE AMBER; GLUCOSE, URINE (UA) NEGATIVE (NEGATIVE); KETONES,URINE 1+ (NEGATIVE); LEUKOCYTE ESTERASE ,URINE NEGATIVE (NEGATIVE); NITRITE,URINE NEGATIVE (NEGATIVE); PROTEIN,URINE 2+ (NEGATIVE)
[2020-04-27] MEDS ORDERED: REMDESIVIR INJ (NON-FORMULARY) 200 MG in NS (IVPB) 210 ML IV NR (15:00)
[2020-04-27] MEDS: ENOXAPARIN 100 MG/1 ML (LOVENOX) SYR SC SCH (15:18)
[2020-04-27 15:19] LABS: WBC,URINE 0-2 /HPF
[2020-04-27 15:20] LABS: AMORPHOUS SEDIMENT,UR RARE AMOR URATES /LPF; BACTERIA,URINE TRACE /HPF
--- NOTE | 2020-04-27 15:24 | NUR ---
THIS RN AT PT BEDSIDE. PT DENIES ANY CURRENT NEEDS AT THIS TIME. PT SITTING IN COT WITH EYES OPEN. A/O X 4
--- NOTE | 2020-04-27 17:03 | NUR ---
PT RESTING WITH EYES CLOSED AT THIS TIME. NO APPARENT DISTRESS NOTED.
--- NOTE | 2020-04-27 18:00 | NUR ---
DR BUTTERFIELD IN PT ROOM AT THIS TIME ADJUSTING PT VAPOTHERM TO 40 LPM AND 100%.
--- NOTE | 2020-04-27 18:20 | NUR ---
PT ASSISTED TO WITH STANDING TO USE URINAL AT THIS TIME.
--- NOTE | 2020-04-27 18:40 | NUR ---
DR FRANCISCO IN ROOM EVALUATING PT AT THIS TIME.
--- NOTE | 2020-04-27 19:00 | NUR ---
ASSUMED CARE OF THIS PATIENT AT THIS TIME.
--- NOTE | 2020-04-27 20:11 | NUR ---
CALLED AND UDATED KARYNA OF PATIENTS STATUS AND ROOM NUMBER OF CU5
[2020-04-27] MEDS ORDERED: ACETAMINOPHEN 500 MG TAB (TYLENOL) PO PRN (21:00)
[2020-04-27] MEDS ORDERED: LACTATED RINGERS 1,000 ML IV SCH (21:00)
[2020-04-27] MEDS ORDERED: VASOPRESSIN 20 UNITS/NS 100 ML DRIP IV SCH ×2 (21:00)
--- NOTE | 2020-04-27 21:07 | NUR ---
MARIA D HIGHTWOER Gabby admitted to room CU5-1, with an admitting diagnosis of Covid +, resp distress, PNA, on 04/27/20 from [facility] ED, accompanied by [email or web address].MARIA D HIGHTOWER introduced to surroundings, call light, bed controls, phone, TV, temperature control, lights, meal times, smoking policy, visitor policy, side rail policy, bathrooms and showers. Patient Rights given to patient in the handbook. MARIA D HIGHTOWER verbalizes understanding that [facility] is not responsible for the loss or damage to any personal effects or valuables that are kept in the patients possession during their hospitalization. The following Patient Care Plans were discussed with the patient: Discharge Planning, pain management,activity, and diet. MARIA D HIGHTOWER verbalizes understanding of Interdisciplinary Patient Education. Patient and/or family were informed about the Rapid Response Team and its purpose.
--- NOTE | 2020-04-27 21:10 | NUR ---
ICU NURSE CORTEZ HERE TO TRANSPORT THIS PUI PATIENT TO HIS ROOM IN ICU.
[2020-04-27] MEDS: EPINEPHrine 1 MG INJECTION 4 MG in NS (IVPB) 246 ML IV SCH (21:36)
[2020-04-27] MEDS: NOREPINEPHRINE 4 MG/250 ML 250 ML IV SCH (21:36)
[2020-04-27] MEDS ORDERED: RT-ALBUTEROL INHALER HFA (VENTOLIN HFA) 18 GM IH PRN (22:15)
[2020-04-28] VITALS (23 sets, daily range): BP systolic 106–154; BP diastolic 64–81
[2020-04-28] MEDS: NOREPINEPHRINE 4 MG/250 ML 250 ML IV SCH ×4 (02:30→19:53)
[2020-04-28] MEDS: EPINEPHrine 1 MG INJECTION 4 MG in NS (IVPB) 246 ML IV SCH ×4 (02:30→19:53)
[2020-04-28] MEDS: ENOXAPARIN 100 MG/1 ML (LOVENOX) SYR SC SCH ×2 (02:32→15:34)
[2020-04-28] MEDS: RT-ALBUTEROL INHALER HFA (VENTOLIN HFA) 18 GM IH SCH ×5 (03:39→21:16)
[2020-04-28 04:32] LABS: BASOPHILS % (AUTO) 0 % (0-10); EOSINOPHILS % (AUTO) 0 % (0-10); HEMATOCRIT 39 % (40-54); LYMPHOCYTES # (AUTO) 0.7 10^3/uL (1.0-4.0); LYMPHOCYTES % (AUTO) 6 % (12-44); MEAN CORPUSCULAR HEMOGLOBIN 28 pg (25-34); MEAN CORPUSCULAR HGB CONC 33 g/dL (32-36); MEAN CORPUSCULAR VOLUME 84 fL (80-99); MEAN PLATELET VOLUME 10.1 fL (9.0-12.2); MONOCYTES # (AUTO) 0.3 10^3/uL (0.0-1.0); MONOCYTES % (AUTO) 3 % (0-12); NEUTROPHILS # (AUTO) 9.9 10^3/uL (1.8-7.8); NEUTROPHILS % (AUTO) 88 % (42-75); PLATELET COUNT 271 10^3/uL (130-400); WHITE BLOOD COUNT 11.3 10^3/uL (4.3-11.0)
--- NOTE | 2020-04-28 04:34 | Pulmonary Consultation ---
History of Present Illness History of Present Illness Date Seen by Provider: Apr 28, 2020 Time Seen by Provider: 04:28 Date of Admission History of Present Illness 64yo presented to ED secondary to worsening SOB and chest discomfort with deep breathing and significant shortness of air. Patient is positive for COVID-19. Onset of symptoms around 04/21 or 04/22. Tested and found positive on April 24. Does have history of emphysema. Does have recent shoulder surgery on 04/18. His left arm is in a sling due to the shoulder surgery. Denies nausea or vomiting. Found to have Sp02 in the mid 60s on room air. He has albuterol inhaler at home and used it last this morning. Allergies and Home Medications Allergies Coded Allergies: Penicillins (Verified Allergy, Mild, 04/19/18) Home Medications Albuterol Sulfate 1 Puff Puff, 2 PUFF IH Q4H PRN for SHORTNESS OF BREATH, (Reported) 1 PUFF = 90 MCG Aspirin 81 Mg Tab.chew, 81 MG PO DAILY, (Reported) Atorvastatin Calcium 40 Mg Tablet, 40 MG PO DAILY, (Reported) Lisinopril 10 Mg Tablet, 40 MG PO DAILY Prescribed by: YENI RUVALCABA on 05/08/18 1257 Metformin HCl 500 Mg Tablet, 500 MG PO DAILY, (Reported) Metoprolol Tartrate 25 Mg Tablet, 25 MG PO BID, (Reported) Oseltamivir Phosphate 75 Mg Capsule, 75 MG PO BID Prescribed by: ROXANNA BUTTERFIELD on 09/30/18 222 Pantoprazole Sodium 40 Mg Tablet.dr, 40 MG PO DAILY, (Reported) Prednisone 20 Mg Tab, 40 MG PO DAILY Prescribed by: ROXANNA BUTTERFIELD on 09/30/18 2220 Tiotropium Br/Olodaterol HCl 4 Gm Mist.inhal, 2 PUFF IH DAILY, (Reported) Past Lixgtqy-Rfhfbm-Lmjupk Hx Past Med/Social Hx: Reviewed Nursing Past Med/Soc Hx Patient Social History Alcohol Use: Denies Use Recreational Drug Use: No Smoking Status: Former Smoker Type Used: Cigarettes Former Smoker, Quit: Jul 11, 2008 Recent Foreign Travel: No Contact w/Someone Who Travel: No Recent Infectious Disease Expo: No Recent Hopitalizations: No Physical Abuse: No Sexual Abuse: No Mistreated: No Fear: No Immunizations Up To Date Date of Pneumonia Vaccine: May 10, 2016 Date of Influenza Vaccine: May 03, 2018 Seasonal Allergies Seasonal Allergies: Yes Past Medical History Surgeries: Yes (shouolder bilat, hiatal hernia x3.lower herniax2,torn meniscus left) CABG, Coronary Stent Respiratory: Yes Sleep Apnea, COPD, Emphysema Currently Using CPAP: Yes Cardiac: Yes Coronary Artery Disease, Heart Attack, High Cholesterol, Hypertension Neurological: Yes TIA Reproductive Disorders: No Sexually Transmitted Disease: No HIV/AIDS: No Genitourinary: No Gastrointestinal: No Musculoskeletal: Yes (arthritis on hands) Arthritis Endocrine: Yes Diabetes, Non-Insulin dep Loss of Vision: Bilateral Hearing Impairment: Hard of Hearing, Bilateral Hearing Aide Cancer: No Psychosocial: No Integumentary: No Blood Disorders: No Adverse Reaction/Blood Tranf: No (N/A) Family Medical History Reviewed Nursing Family Hx No Pertinent Family Hx Review of Systems Time Seen by Provider: 04:32 Sepsis Event Evaluation Height, Weight, BMI Height: 5'8.00" Weight: 238lbs. 5.0oz. 107.090364dl; 35.00 BMI Method:Stated Exam Exam Vital Signs Date Time Temp Pulse Resp B/P (MAP) Pulse Ox O2 Delivery O2 Flow Rate FiO2 04/28/20 04:00 72 25 127/71 (89) 89 Vapotherm 25.00 70.00 04/28/20 03:40 98 Vapotherm 70 04/28/20 03:05 94 Vapotherm 25.00 80 04/28/20 03:00 70 15 129/81 (97) 94 Vapotherm 25.00 70.00 04/28/20 02:29 98 Vapotherm 25.00 70.00 04/28/20 02:00 71 154/81 (105) 97 Vapotherm 30.00 80.00 04/28/20 01:00 73 04/28/20 01:00 73 9 147/79 (101) 96 Vapotherm 30.00 80.00 04/28/20 00:20 36.1 30.00 80.00 04/28/20 00:00 72 21 111/70 (84) 98 Vapotherm 35.00 90.00 04/27/20 23:15 98 Vapotherm 35.00 90 04/27/20 23:00 89 28 152/80 (104) 98 Vapotherm 35.00 90.00 04/27/20 22:38 88 Vapotherm 90 04/27/20 22:15 69 18 131/82 (98) 98 Vapotherm 35.00 90.00 04/27/20 22:00 69 24 140/78 (98) 98 Vapotherm 35.00 90.00 04/27/20 21:45 71 25 149/80 (103) 97 Vapotherm 35.00 90.00 04/27/20 21:45 Vapotherm 35.00 90.00 04/27/20 21:44 37.1 67 98 04/27/20 21:30 75 33 133/81 (98) Vapotherm 40.00 100.00 04/27/20 21:15 73 142/78 (99) 93 Vapotherm 40.00 100.00 04/27/20 21:14 73 04/27/20 21:10 Vapotherm 50.00 100 04/27/20 21:10 36.0 73 31 137/88 (104) 93 Vapotherm 40.00 100.00 04/27/20 09:40 37.1 110 18 129/88 (102) 93 Vapotherm I & O 04/28/20 07:00 Intake Total 2665 ml Output Total 750 ml Balance 1915 ml Height & Weight Height: 5'8.00" Weight: 238lbs. 5.0oz. 107.070488yg; 35.00 BMI Method:Stated General Appearance: WD/WN, Moderate Distress HEENT: PERRL/EOMI, Pharyngeal Erythema Neck: Non Tender, Supple Respiratory: Decreased Breath Sounds, Respiratory Distress (moderate with O2 sat 88% on high flow mask) Cardiovascular: No Murmur, Tachycardia Capillary Refill: Less Than 3 Seconds Extremity: Normal Range of Motion, Non Tender, Other (surgical wound covered with dressing to the left anterior shoulder) Neurologic/Psychiatric: Alert, Oriented x3 Results Lab Laboratory Tests 04/27/20 09:44 Assessment/Plan Assessment/Plan COVID-19 with acute hypoxic respiratory failure -Oxygen -Remdesivir and convalescent plasma -Daily CMP -Theraputic dose lovenox -Increase Decadron to 20mg IV daily RACHEL HANKINS DO Apr 28, 2020 04:34
[2020-04-28 04:38] LABS: ALBUMIN 3.1 GM/DL (3.2-4.5); CHLORIDE 106 MMOL/L (98-107); POTASSIUM 3.9 MMOL/L (3.6-5.0); SODIUM 138 MMOL/L (135-145)
[2020-04-28 04:40] LABS: CALCIUM 8.7 MG/DL (8.5-10.1)
[2020-04-28 04:41] LABS: GLUCOSE 143 MG/DL (70-105); TOTAL PROTEIN 6.8 GM/DL (6.4-8.2)
[2020-04-28 04:42] LABS: CARBON DIOXIDE 19 MMOL/L (21-32)
[2020-04-28 04:43] LABS: BILIRUBIN,TOTAL 0.9 MG/DL (0.1-1.0)
[2020-04-28 04:44] LABS: ALKALINE PHOSPHATASE 82 U/L (40-136); PHOSPHORUS 3.3 MG/DL (2.3-4.7)
[2020-04-28 04:45] LABS: GFR ESTIMATED > 60
[2020-04-28 04:46] LABS: BUN/CREATININE RATIO 29
[2020-04-28 04:47] LABS: ALANINE AMINOTRANSFERASE 44 U/L (0-55); MAGNESIUM 2.1 MG/DL (1.6-2.4)
[2020-04-28] MEDS: POTASSIUM CL 10MEQ/50ML IVPB 50 ML IV SCH (05:40)
[2020-04-28] MEDS: KCL 20 MEQ TAB (K-DUR) PO SCH (05:40)
[2020-04-28] MEDS: MAGNESIUM 1 GM/100 ML IVPB 100 ML IV SCH (05:40)
[2020-04-28] MEDS ORDERED: FLU QUAD HIGH DOSE 240 MCG/0.7 ML 2020-21 (FLUZONE) IM ONE (07:30)
[2020-04-28] MEDS: dexAMETHasone INJECTION 20 MG in NS (IVPB) 50 ML IV SCH (08:21)
[2020-04-28] MEDS ORDERED: dexAMETHasone 6 MG TAB (DECADRON) PO SCH (09:00)
--- NOTE | 2020-04-28 11:18 | NUR ---
LYLE AT DR OSBORNE OFFICE CALLED THIS RN. PT IS SCHEDULED FOR A LEFT SHOULDER POST OP VISIT W/ DR DE LA TORRE ON TUESDAY TO REMOVE JEWELS. DR OSBORNE OFFICE REQUESTED [facility] STAFF TO REMOVE STAPLE AND PLACE STERI STRIPS OVER SITE IF PT IS STILL HOSPITALIZED.
[2020-04-28] MEDS: REMDESIVIR INJ (NON-FORMULARY) 100 MG in NS (IVPB) 230 ML IV SCH (15:34)
[2020-04-28] MEDS: cefTRIAXone 1,000 MG/SWFI 10 ML IV PUSH IV SCH ×2 (16:35)
[2020-04-28] MEDS: AZITHROMYCIN 500 MG/NS 250 ML IVPB IV SCH ×2 (16:35)
[2020-04-29] VITALS (31 sets, daily range): BP systolic 84–122; BP diastolic 62–86
[2020-04-29] MEDS: RT-ALBUTEROL INHALER HFA (VENTOLIN HFA) 18 GM IH SCH ×6 (02:10→21:27)
[2020-04-29 03:05] LABS: BASOPHILS % (AUTO) 0 % (0-10); EOSINOPHILS % (AUTO) 0 % (0-10); HEMATOCRIT 38 % (40-54); HEMOGLOBIN 12.6 g/dL (13.3-17.7); LYMPHOCYTES # (AUTO) 0.8 10^3/uL (1.0-4.0); LYMPHOCYTES % (AUTO) 7 % (12-44); MEAN CORPUSCULAR HEMOGLOBIN 28 pg (25-34); MEAN CORPUSCULAR HGB CONC 33 g/dL (32-36); MEAN CORPUSCULAR VOLUME 85 fL (80-99); MEAN PLATELET VOLUME 10.3 fL (9.0-12.2); MONOCYTES # (AUTO) 0.3 10^3/uL (0.0-1.0); MONOCYTES % (AUTO) 3 % (0-12); NEUTROPHILS # (AUTO) 8.9 10^3/uL (1.8-7.8); NEUTROPHILS % (AUTO) 86 % (42-75); PLATELET COUNT 314 10^3/uL (130-400); WHITE BLOOD COUNT 10.4 10^3/uL (4.3-11.0)
[2020-04-29] MEDS: EPINEPHrine 1 MG INJECTION 4 MG in NS (IVPB) 246 ML IV SCH ×3 (03:12→18:36)
[2020-04-29] MEDS: ENOXAPARIN 100 MG/1 ML (LOVENOX) SYR SC SCH ×2 (03:12→16:16)
[2020-04-29] MEDS: NOREPINEPHRINE 4 MG/250 ML 250 ML IV SCH (03:13)
[2020-04-29 03:19] LABS: CHLORIDE 106 MMOL/L (98-107); POTASSIUM 3.7 MMOL/L (3.6-5.0); SODIUM 139 MMOL/L (135-145)
[2020-04-29 03:20] LABS: CALCIUM 8.5 MG/DL (8.5-10.1)
[2020-04-29 03:21] LABS: GLUCOSE 165 MG/DL (70-105)
[2020-04-29 03:22] LABS: CARBON DIOXIDE 21 MMOL/L (21-32)
[2020-04-29 03:24] LABS: PHOSPHORUS 2.8 MG/DL (2.3-4.7)
[2020-04-29 03:25] LABS: BUN/CREATININE RATIO 27; CREATININE SERUM 0.82 MG/DL (0.60-1.30); GFR ESTIMATED > 60
[2020-04-29 03:27] LABS: MAGNESIUM 2.2 MG/DL (1.6-2.4)
[2020-04-29] MEDS: KCL 20 MEQ TAB (K-DUR) PO SCH (04:11)
[2020-04-29] MEDS: POTASSIUM CL 10MEQ/50ML IVPB 50 ML IV SCH (04:11)
[2020-04-29] MEDS: MAGNESIUM 1 GM/100 ML IVPB 100 ML IV SCH (04:11)
--- NOTE | 2020-04-29 05:07 | Pulmonary Progress Note ---
Subjective Time Seen by a Provider: 05:02 Sepsis Event Evaluation Height, Weight, BMI Height: 5'8.00" Weight: 238lbs. 5.0oz. [id number]; 35.00 BMI Method:Stated Focused Exam Lactate Level 04/27/20 12:39: Lactic Acid Level 2.71*H 04/27/20 15:56: Lactic Acid Level 2.38*H 04/27/20 17:58: Lactic Acid Level 1.97 Exam Exam Vital Signs Date Time Temp Pulse Resp B/P (MAP) Pulse Ox O2 Delivery O2 Flow Rate FiO2 04/29/20 04:00 65 22 111/81 (91) 92 Vapotherm 40.00 100.00 04/29/20 03:15 36.3 Vapotherm 40.00 100.00 04/29/20 03:15 91 Vapotherm 40.00 100 04/29/20 03:00 69 17 117/67 (84) 91 Vapotherm 40.00 100.00 04/29/20 02:45 88 Vapotherm 40.00 95 04/29/20 02:10 Vapotherm 40.00 100.00 04/29/20 02:00 65 18 95/81 (86) 89 Vapotherm 40.00 95.00 04/29/20 01:00 64 30 112/73 (86) 91 Vapotherm 40.00 95.00 04/29/20 01:00 64 04/29/20 00:00 75 25 110/74 (86) 87 Vapotherm 40.00 95.00 04/29/20 00:00 36.4 Vapotherm 40.00 95.00 04/28/20 23:45 94 Vapotherm 40.00 95 04/28/20 23:00 76 22 109/68 (82) 92 Vapotherm 40.00 95.00 04/28/20 21:25 Vapotherm 40.00 95.00 04/28/20 21:16 96 Vapotherm 40.00 100 04/28/20 21:00 70 13 111/72 (85) 95 Vapotherm 40.00 100.00 04/28/20 20:00 81 121/75 (90) 89 Vapotherm 40.00 100.00 04/28/20 20:00 98 Vapotherm 40.00 100 04/28/20 19:45 36.0 81 18 98 Vapotherm 40.00 100.00 04/28/20 19:14 Vapotherm 40.00 100 04/28/20 19:00 64 04/28/20 19:00 64 110/72 (85) Vapotherm 40.00 100.00 04/28/20 18:00 69 108/72 (84) 88 Vapotherm 40.00 100.00 04/28/20 17:00 76 55 126/77 (93) 92 Vapotherm 40.00 100.00 04/28/20 16:00 62 33 125/75 (92) 93 Vapotherm 40.00 100.00 04/28/20 15:54 93 Vapotherm 40.00 100 04/28/20 15:36 35.0 04/28/20 15:00 74 134/64 (87) 92 Vapotherm 40.00 100.00 04/28/20 14:00 62 56 109/75 (86) 92 Vapotherm 40.00 100.00 04/28/20 13:00 73 111/72 (85) 92 Vapotherm 40.00 100.00 04/28/20 12:54 62 04/28/20 12:00 68 31 110/66 (81) 97 Vapotherm 40.00 100.00 04/28/20 11:53 92 Vapotherm 40.00 100 04/28/20 11:36 36.1 04/28/20 11:00 65 30 106/73 (84) 95 Vapotherm 40.00 100.00 04/28/20 10:00 77 23 109/74 (86) 93 Vapotherm 40.00 100.00 04/28/20 09:00 78 32 118/68 (85) 92 Vapotherm 40.00 100.00 04/28/20 08:30 91 Vapotherm 40.00 100 04/28/20 08:02 90 Vapotherm 40.00 100 04/28/20 08:00 70 23 120/75 (90) 93 Vapotherm 40.00 100.00 04/28/20 07:47 Vapotherm 40.00 100.00 04/28/20 07:43 35.7 04/28/20 07:00 65 17 120/75 (90) 92 Vapotherm 35.00 80.00 04/28/20 06:40 67 04/28/20 06:00 65 15 125/74 (91) 91 Vapotherm 35.00 80.00 04/28/20 05:57 Vapotherm 35.00 80.00 04/28/20 05:46 Vapotherm 30.00 70.00 I & O 04/29/20 07:00 Intake Total 1712 ml Output Total 800 ml Balance 912 ml Height & Weight Height: 5'8.00" Weight: 238lbs. 5.0oz. 107.416617ut; 35.00 BMI Method:Stated General Appearance: WD/WN, Moderate Distress HEENT: PERRL/EOMI, Pharyngeal Erythema Neck: Non Tender, Supple Respiratory: Decreased Breath Sounds, Respiratory Distress (moderate with O2 sat 88% on high flow mask) Cardiovascular: No Murmur, Tachycardia Capillary Refill: Less Than 3 Seconds Extremity: Normal Range of Motion, Non Tender, Other (surgical wound covered with dressing to the left anterior shoulder) Neurologic/Psychiatric: Alert, Oriented x3 Results Lab Laboratory Tests 04/27/20 09:44 04/28/20 04:00 04/29/20 02:45 Assessment/Plan Assessment/Plan COVID-19 with acute hypoxic respiratory failure -Oxygen -Remdesivir and convalescent plasma -Daily CMP -Theraputic dose lovenox -Increase Decadron to 20mg IV daily RACHEL HANKINS DO Apr 29, 2020 05:07
[2020-04-29] MEDS ORDERED: FUROSEMIDE 40 MG/4 ML INJ (LASIX) IVP ONE (05:15)
[2020-04-29] MEDS: dexAMETHasone INJECTION 20 MG in NS (IVPB) 50 ML IV SCH (05:35)
[2020-04-29] MEDS: RT-BUDESONIDE NEBS 0.5 MG/2ML (PULMICORT) AMP INH SCH ×2 (07:07→21:27)
[2020-04-29] MEDS ORDERED: KCL 20 MEQ TAB (K-DUR) PO ONE (08:00)
[2020-04-29] MEDS: PANTOPRAZOLE 40 MG (PROTONIX) VIAL IV SCH (08:15)
[2020-04-29] MEDS ORDERED: NS IV 500 ML 500 ML IV ONE (12:30)
[2020-04-29] MEDS ORDERED: CELE-63 PO (14:05)
[2020-04-29] MEDS ORDERED: ATOR20TA66 PO (14:05)
[2020-04-29] MEDS ORDERED: SERT50TA9 PO (14:05)
[2020-04-29] MEDS ORDERED: UMEC1BLS IH (14:05)
[2020-04-29] MEDS ORDERED: HYDR-3820 PO (14:05)
[2020-04-29] MEDS ORDERED: ATOR10TA66 (14:05)
[2020-04-29] MEDS ORDERED: LEVO25TA80 PO (14:05)
[2020-04-29] MEDS ORDERED: LISI40TA PO (14:05)
[2020-04-29] MEDS ORDERED: TRAM50TA3 PO (14:05)
[2020-04-29] MEDS ORDERED: OMEG-177 PO (14:05)
[2020-04-29] MEDS ORDERED: CETI10TA49 PO (14:05)
[2020-04-29] MEDS ORDERED: CALC-250 PO (14:05)
[2020-04-29] MEDS ORDERED: PANT40TA2 PO (14:07)
--- NOTE | 2020-04-29 14:07 | NUR ---
I WAS UNABLE TO SPEAK WITH THE PT AT THIS TIME- I DID CALL HIS (KARYNA, SHE HAD A MED LIST), WENT THRU THE EXT MED HISTORY AND CALLED THE [facility] TO COMPLETE THE MED REC THE FOLLOWING FILL DATES ARE FROM THE [place]: 02-21-2020 ATORVASTATIN 20MG #45/90DS 02-20-3030 PROAIR #1 02-21-2020 ANORO #3/90DS 02-21-2020 PANTOPRAZOLE 40MG #90/90DS 03-17-2020 CETIRIZINE 10MG #90/90DS 03-25-2020 SERTRALINE 50MG #87/90DS THE EXT MED HISTORY SHOWS SENNA-S AND TERBINAFINE 250MG BEING FILLED HOWEVER PT IS NOT TAKING EITHER OF THESE MEDS. ACCORDING TO KARYNA HE NEVER NEEDED THE SENNA-S AND DUE TO HIS BLOOD WORK HE WAS TOLD TO STOP TERBINAFINE OTC MEDS: ASPIRIN 81 FISH OIL VIT D
--- NOTE | 2020-04-29 14:25 | NUR ---
"RD ASSESSMENT PMHx: COPD; CAD; hypercholesterolemia; HTN; TIA; DM PT INTERACTION: Note pt is currently COVID-19 positive, per chart review. Note pt is currently on BiPap and hard of hearing. Note all diet information for nutrition assessment is gathered per chart review. Note avg PO intake 50% x1d. Note last BM was 04/27, and pt not currently on bowel regimen. Note unable to determine recent wt hx. Note unable to determine current level of DM management, and unable to determine recent HbA1c. ABNORMAL NUTRITION-RELATED LAB VALUES LOW: HIGH: BUN 22; glu 165 Est. kcal needs: 1400 kcal | 15 kcal/kg Est. Pro needs: 75 g Pro | 0.8 g Pro/kg PES STATEMENT: Inadequate oral intake (NI-2.1) related to loss of appetite as evidenced by chart review | avg PO intake 50% x1d INTERVENTION: Continue with current diet order of Regular diet. Would recommend switching diet to consistent CHO diet, as blood glucose levels are elevated. Did not offer diet education on DM management d/t COVID restrictions. Will continue to follow and reassess as pt needs, intake, and status change. Yoni Henao, MS RD LD"
[2020-04-29] MEDS: REMDESIVIR INJ (NON-FORMULARY) 100 MG in NS (IVPB) 230 ML IV SCH (16:16)
[2020-04-29] MEDS: AZITHROMYCIN 500 MG/NS 250 ML IVPB IV SCH ×2 (16:41)
[2020-04-29] MEDS: cefTRIAXone 1,000 MG/SWFI 10 ML IV PUSH IV SCH ×2 (16:41)
--- NOTE | 2020-04-29 16:46 | NUR ---
ATTEMPTED TO TAKE PT OFF BIPAP AND PLACE ON VAPOTHERM 40L 100%, O2 SATS DROPPED TO 85%. BIPAP REAPPLIED, SATS INCREASED BACK TO LOW 90S.
[2020-04-30] VITALS (22 sets, daily range): BP systolic 100–128; BP diastolic 59–85
[2020-04-30] MEDS: EPINEPHrine 1 MG INJECTION 4 MG in NS (IVPB) 246 ML IV SCH ×4 (00:33→20:23)
[2020-04-30] MEDS: RT-ALBUTEROL INHALER HFA (VENTOLIN HFA) 18 GM IH SCH ×6 (01:45→21:35)
[2020-04-30] MEDS: ENOXAPARIN 100 MG/1 ML (LOVENOX) SYR SC SCH ×2 (02:31→14:32)
[2020-04-30 04:03] LABS: BASOPHILS % (AUTO) 0 % (0-10); EOSINOPHILS % (AUTO) 0 % (0-10); HEMATOCRIT 39 % (40-54); HEMOGLOBIN 12.6 g/dL (13.3-17.7); LYMPHOCYTES # (AUTO) 0.9 10^3/uL (1.0-4.0); LYMPHOCYTES % (AUTO) 9 % (12-44); MEAN CORPUSCULAR HEMOGLOBIN 28 pg (25-34); MEAN CORPUSCULAR HGB CONC 32 g/dL (32-36); MEAN CORPUSCULAR VOLUME 87 fL (80-99); MEAN PLATELET VOLUME 10.5 fL (9.0-12.2); MONOCYTES # (AUTO) 0.4 10^3/uL (0.0-1.0); MONOCYTES % (AUTO) 4 % (0-12); NEUTROPHILS # (AUTO) 8.3 10^3/uL (1.8-7.8); NEUTROPHILS % (AUTO) 83 % (42-75); PLATELET COUNT 342 10^3/uL (130-400)
[2020-04-30 04:05] LABS: CHLORIDE 104 MMOL/L (98-107); POTASSIUM 4.2 MMOL/L (3.6-5.0); SODIUM 138 MMOL/L (135-145)
[2020-04-30 04:06] LABS: CALCIUM 8.5 MG/DL (8.5-10.1)
[2020-04-30 04:07] LABS: GLUCOSE 107 MG/DL (70-105)
[2020-04-30 04:08] LABS: CARBON DIOXIDE 21 MMOL/L (21-32)
[2020-04-30 04:11] LABS: CREATININE SERUM 0.93 MG/DL (0.60-1.30); GFR ESTIMATED > 60
[2020-04-30 04:12] LABS: BUN/CREATININE RATIO 33
[2020-04-30 04:13] LABS: MAGNESIUM 2.3 MG/DL (1.6-2.4)
[2020-04-30] MEDS: KCL 20 MEQ TAB (K-DUR) PO SCH (04:15)
[2020-04-30] MEDS: MAGNESIUM 1 GM/100 ML IVPB 100 ML IV SCH (04:15)
[2020-04-30] MEDS: POTASSIUM CL 10MEQ/50ML IVPB 50 ML IV SCH (04:15)
--- NOTE | 2020-04-30 04:21 | Pulmonary Progress Note ---
Subjective Time Seen by a Provider: 04:16 Subjective/Events-last exam Pt has improved oxygen requirments however still requiring 65% Vapotherm Sepsis Event Evaluation Height, Weight, BMI Height: 5'8.00" Weight: 238lbs. 5.0oz. 107.782549nz; 35.00 BMI Method:Stated Focused Exam Lactate Level 04/27/20 12:39: Lactic Acid Level 2.71*H 04/27/20 15:56: Lactic Acid Level 2.38*H 04/27/20 17:58: Lactic Acid Level 1.97 Exam Exam Vital Signs Date Time Temp Pulse Resp B/P (MAP) Pulse Ox O2 Delivery O2 Flow Rate FiO2 04/30/20 04:00 94 NIV Bilevel 65 04/30/20 04:00 36.2 NIV Bilevel 65.00 04/30/20 04:00 55 19 121/69 (86) 96 NIV Bilevel 65.00 04/30/20 03:00 58 22 122/85 (97) 94 NIV Bilevel 65.00 04/30/20 02:27 59 25 119/64 (82) 94 NIV Bilevel 65.00 04/30/20 01:46 61 23 93 65.00 04/30/20 01:00 60 04/30/20 01:00 60 16 97 NIV Bilevel 65.00 04/30/20 00:00 65 21 100/73 (82) 93 NIV Bilevel 65.00 04/29/20 23:35 92 NIV Bilevel 65 04/29/20 23:30 36.8 NIV Bilevel 65.00 04/29/20 23:00 59 15 96/69 (78) 96 NIV Bilevel 65.00 04/29/20 22:00 60 17 97/73 (81) 96 NIV Bilevel 65.00 04/29/20 21:27 62 15 96 65.00 04/29/20 21:00 65 17 95/72 (80) 97 NIV Bilevel 65.00 04/29/20 20:08 NIV Bilevel 65.00 04/29/20 20:00 67 24 107/86 (93) 94 NIV Bilevel 50.00 04/29/20 20:00 36.7 NIV Bilevel 50.00 04/29/20 20:00 93 NIV Bilevel 50 04/29/20 19:00 NIV Bilevel 75.00 04/29/20 19:00 67 04/29/20 19:00 67 21 99/75 (83) 98 NIV Bilevel 75.00 04/29/20 18:11 91 17 93 75.00 04/29/20 18:00 56 25 110/69 (83) 97 Vapotherm 40.00 100.00 04/29/20 17:00 60 12 96/68 (77) 91 Vapotherm 40.00 100.00 04/29/20 16:20 Vapotherm 40.00 100.00 04/29/20 16:00 64 17 100/68 (79) 91 NIV Bilevel 75.00 04/29/20 15:50 35.8 04/29/20 15:26 96 NIV Bilevel 75 04/29/20 15:00 67 17 116/81 (93) 95 NIV Bilevel 75.00 04/29/20 14:23 64 17 94 75.00 04/29/20 14:00 65 15 84/63 (70) 96 NIV Bilevel 75.00 04/29/20 13:45 35.7 64 19 102/71 95 NIV Bilevel 75 04/29/20 13:15 36.2 66 14 89/74 95 75 04/29/20 13:00 66 18 102/71 (81) 94 NIV Bilevel 75.00 04/29/20 13:00 36.1 65 14 96/72 NIV Bilevel 75 04/29/20 12:42 61 04/29/20 12:01 93 NIV Bilevel 75 04/29/20 12:00 66 13 106/66 (79) 96 NIV Bilevel 75.00 04/29/20 11:31 35.8 04/29/20 11:02 66 24 93 75.00 04/29/20 11:00 65 32 96/62 (73) 93 NIV Bilevel 75.00 04/29/20 10:00 65 26 98/72 (81) 93 NIV Bilevel 75.00 04/29/20 09:00 65 22 113/80 (91) 95 NIV Bilevel 75.00 04/29/20 08:37 68 14 95 75.00 04/29/20 08:36 NIV Bilevel 75.00 04/29/20 08:13 35.6 04/29/20 08:00 Vapotherm 40.00 100.00 04/29/20 08:00 70 22 122/72 (89) 87 Vapotherm 40.00 100.00 04/29/20 08:00 87 Vapotherm 40.00 100 04/29/20 07:08 94 Vapotherm 35.00 95 04/29/20 07:00 62 23 111/76 (88) 93 Vapotherm 35.00 90.00 04/29/20 06:46 64 04/29/20 06:00 61 97/70 (79) 96 Vapotherm 35.00 90.00 04/29/20 05:44 Vapotherm 35.00 90.00 04/29/20 05:00 60 15 120/75 (90) 95 Vapotherm 40.00 100.00 I & O 04/30/20 07:00 Intake Total 1560 ml Output Total 2300 ml Balance -740 ml Height & Weight Height: 5'8.00" Weight: 238lbs. 5.0oz. 107.599542aw; 35.00 BMI Method:Stated General Appearance: WD/WN, Moderate Distress HEENT: PERRL/EOMI, Pharyngeal Erythema Neck: Non Tender, Supple Respiratory: Decreased Breath Sounds, Respiratory Distress (moderate with O2 sat 88% on high flow mask) Cardiovascular: No Murmur, Tachycardia Capillary Refill: Less Than 3 Seconds Extremity: Normal Range of Motion, Non Tender, Other (surgical wound covered with dressing to the left anterior shoulder) Neurologic/Psychiatric: Alert, Oriented x3 Results Lab Laboratory Tests 04/29/20 02:45 04/30/20 02:45 Assessment/Plan Assessment/Plan COVID-19 with acute hypoxic respiratory failure -Oxygen -- Currently on Vapotherm 95% -BiPAP 15/5 QHS and PRN -Remdesivir and S/p 1 unit of convalescent plasma -Daily CMP -Theraputic dose lovenox -Increase Decadron to 20mg IV daily Hx of COPD/emphysema -Does not use oxygen at home KEVIN -Uses CPAP at home CAD hx of CABG NIDDM HX of tobacco use -Quit in 2007 GI/DVT ppx -Lovenox and protonix RACHEL HANKINS DO Apr 30, 2020 04:21
[2020-04-30 04:32] LABS: ALBUMIN 3.1 GM/DL (3.2-4.5)
[2020-04-30 04:35] LABS: TOTAL PROTEIN 6.6 GM/DL (6.4-8.2)
[2020-04-30 04:37] LABS: BILIRUBIN,TOTAL 0.7 MG/DL (0.1-1.0)
[2020-04-30 04:38] LABS: ALKALINE PHOSPHATASE 77 U/L (40-136)
[2020-04-30 04:41] LABS: ALANINE AMINOTRANSFERASE 45 U/L (0-55)
[2020-04-30] MEDS: dexAMETHasone INJECTION 20 MG in NS (IVPB) 50 ML IV SCH (05:32)
[2020-04-30] MEDS: RT-BUDESONIDE NEBS 0.5 MG/2ML (PULMICORT) AMP INH SCH (06:54)
[2020-04-30] MEDS: PANTOPRAZOLE 40 MG (PROTONIX) VIAL IV SCH (07:52)
--- NOTE | 2020-04-30 08:05 | NUR ---
LEFT SHOULDER JEWELS REMOVED, STERI STRIPS APPLIED. SITE W/O REDNESS/DRAINAGE. PT DENIES PAIN.
--- NOTE | 2020-04-30 09:00 | NUR ---
PT AGREEABLE TO ATTEMPT PRONE POSITION TONIGHT IF HE CAN HAVE MEDICATION TO HELP HIM RELAX/SLEEP. DR JIMENEZ INFORMED.
--- NOTE | 2020-04-30 10:27 | Progress Note - Hospitalist ---
Subjective HPI/CC On Admission Date Seen by Provider: Apr 30, 2020 Time Seen by Provider: 10:21 Subjective/Events-last exam Pt reports feeling much better today. Off BiPAP and on Vapotherm. Breathing better. Was able to eat. Focused Exam Lactate Level 04/27/20 12:39: Lactic Acid Level 2.71*H 04/27/20 15:56: Lactic Acid Level 2.38*H 04/27/20 17:58: Lactic Acid Level 1.97 Objective Exam Vital Signs Vital Signs Date Time Temp Pulse Resp B/P (MAP) Pulse Ox O2 Delivery O2 Flow Rate FiO2 04/30/20 08:30 93 Vapotherm 35.00 95 04/30/20 08:02 35.7 04/30/20 06:00 60 19 124/70 (88) Capillary Refill : Less Than 3 Seconds General Appearance: No Apparent Distress, Chronically ill Respiratory: Decreased Breath Sounds; No Wheezing; Other (on Vapotherm) Cardiovascular: Regular Rate, Rhythm, No Murmur Gastrointestinal: Normal Bowel Sounds, Soft Extremity: Other (scar apparent from recent shoulder surgery) Neurologic/Psychiatric: Alert, Oriented x3, Normal Mood/Affect Results/Procedures Lab Laboratory Tests 04/30/20 02:45 Patient resulted labs reviewed. Assessment/Plan Assessment and Plan Assess & Plan/Chief Complaint COVID-19 with acute hypoxic respiratory failure KEVIN COPD -Oxygen -- Currently on Vapotherm 95% at 35 lpm -BiPAP 15/5 QHS and PRN -Remdesivir and S/p 1 unit of convalescent plasma -Daily CMP -Theraputic dose lovenox due to elevated d-dimer - Decadron to 20mg IV daily Continue Rocephin and Azithromycin - Unable to prone so far but will attempt tonight when he sleep - IS CAD hx of CABG NIDDM HX of tobacco use Quit in 2007 Continue home aspirin and statin Continue metoprolol Hypothyroidism Continue home synthroid Recent shoulder surgery Dressing orders per Dr Dominguez Pain control PT/OT GI/DVT ppx -Lovenox and protonix Clinical Quality Measures DVT/VTE Risk/Contraindication: Risk Factor Score Per Nursin RFS Level Per Nursing on Admit: 4+=Very High DAJUAN JIMENEZ MD Apr 30, 2020 10:27
[2020-04-30] MEDS ORDERED: PANTOPRAZOLE 40 MG (PROTONIX) TAB PO PRN (10:30)
[2020-04-30] MEDS: ADVAIR HFA 115/21 MCG INHALER 8 GM IH SCH ×2 (10:58→21:35)
[2020-04-30] MEDS: LEVOTHYROXINE 25 MCG (LEVOTHROID) TAB PO SCH (11:45)
--- NOTE | 2020-04-30 13:34 | Physical Therapy Evaluation ---
PT Evaluation-General Medical Diagnosis Admission Date Apr 27, 2020 at 15:10 Medical Diagnosis: acute hypoxic respiratory failure Onset Date: Apr 27, 2020 Therapy Diagnosis Therapy Diagnosis: impaired mobility, strength, endurance Height/Weight Height (Feet): 5 Height (Inches): 8.00 Weight (Pounds): 238 Weight (Ounces): 5.0 Precautions Precautions/Isolations: Airborne Isolation, Fall Prevention Referral Physician: Catalina Reason for Referral: Evaluation/Treatment Medical History Additional Medical History Past Medical History Surgeries: Yes (shouolder bilat, hiatal hernia x3.lower herniax2,torn meniscus left) CABG, Coronary Stent Respiratory: Yes Sleep Apnea, COPD Currently Using CPAP: Yes Cardiac: Yes Coronary Artery Disease, High Cholesterol, Hypertension Neurological: Yes TIA Reproductive Disorders: No Sexually Transmitted Disease: No HIV/AIDS: No Gastrointestinal: No Musculoskeletal: Yes (arthritis on hands) Arthritis Endocrine: Yes Diabetes, Non-Insulin dep Loss of Vision: Bilateral Hearing Impairment: Hard of Hearing, Bilateral Hearing Aide Reviewed History: Yes Social History Home: Single Level Current Living Status: Spouse Entry Into Home: Level Entry Prior Prior Level of Function SCALE: Activities may be completed with or without assistive devices. 3-Dotzmxnkpt-fafvdyf completes the activity by him/herself with no assistance from a helper. 5-Set-up or Clean-up Assistance-helper sets up or cleans up; patient completes activity. [place] assists only prior to or following the activity. 4-Supervision or Touching Assistance-helper provides verbal cues and/or touching/steadying and/or contact guard assistance as patient completes activity. Assistance may be provided throughout the activity or intermittently. 3-Partial/Moderate Assistance-helper does LESS THAN HALF the effort. [place] lifts, holds or supports trunk or limbs, but provides less than half the effort. 2-Substantial/Maximal Assistance-helper does MORE THAN HALF the effort. [place] lifts or holds trunk or limbs and provides more than half the effort. 4-Lawkufwmx-gwovpw does ALL the effort. Patient does none of the effort to complete the activity. Or, the assistance of 2 or more helpers is required for the patient to complete the activity. If activity was not attempted, code reason: 7-Patient Refused. 9-Not Applicable-not attempted and the patient did not perform the activity before the current illness, exacerbation or injury. 10-Not Attempted due to Environmental Limitations-(lack of equipment, weather restraints, etc.). 88-Not Attempted due to Medical Conditions or Safety Concerns. Bed Mobility: 6 Transfers (B,C,W/C): 6 Gait: 6 Stairs: 6 Indoor Mobility (Ambulation): Independent Stairs: Independent PT Evaluation-Current Subjective Patient in bed pre tx, agrees to PT, has no complaints of pain, states he is breathing much better. Pt/Family Goals to be independent at home Objective Patient Orientation: Person, Place, Situation Attachments: Oxygen, Macias Catheter vapotherm ROM/Strength ROM Lower Extremities WNL Strength Lower Extremities 4+/5 gross BLE Sensory Vision: Wears Glasses Hearing: Impaired Sensation Right Lower Extremit: Intact Sensation Left Lower Extremity: Intact Transfers Roll Left to Right (QC): 6 Sit to Lying (QC): 4 Lying to Sitting/Side of Bed(Q: 4 Sit to Stand (QC): 3 Chair/Qsr-md-Melee Xfer(QC): 4 Unsteady immediately after standing, patient states he has had some trouble recently with balance. Transfer to recliner with CGA Balance Sitting Static: Normal Sitting Dynamic: Normal Standing Static: Good Standing Dynamic: Fair Treatment seated BLE exercises x20 (AP, LAQ) Assessment/Needs Patient has impaired mobility, strength, endurance. He gets unsteady upon standing but no dizziness. 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 PT Snf Goals Time Frame: May 07, 2020 Roll Left & Right (QC): 6 Sit to Lying (QC): 6 Lying-Sitting on Side/Bed(QC): 6 Sit to Stand (QC): 6 Chair/Axs-oo-Deyrq Xfer(QC): 6 Walk 10 feet (QC): 4 Walk 50ft with 2 Turns (QC): 4 PT Plan Problem List Problem List: Activity Tolerance, Functional Strength, Safety, Balance, Gait, Transfer, Bed Mobility, ROM Treatment/Plan Treatment Plan: Continue Plan of Care Treatment Plan: Bed Mobility, Education, Functional Activity Jossy, Functional Strength, Gait, Safety, Therapeutic Exercise, Transfers Treatment Duration: May 07, 2020 Frequency: 6 times per week Estimated Hrs Per Day: .25 hour per day Patient and/or Family Agrees t: Yes Safety Risks/Education Patient Education: Transfer Techniques, Correct Positioning, Safety Issues Teaching Recipient: Patient Teaching Methods: Demonstration, Discussion Response to Teaching: Reinforcement Needed Discharge Recommendations Plan Patient will perform bed mobility and transfer training, balance and endurance training, functional strengthening, stair training, gait training, and education, to improve functional mobility and independence at home. Therapy Discharge Recommendati: Home & Family, Post Acute PT Time/GCodes Time In: 1300 Time Out: 1320 Total Billed Treatment Time: 20 Total Billed Treatment 1 visit SEYD 20' ADA ROCHA PT Apr 30, 2020 13:34
--- NOTE | 2020-04-30 13:45 | Occupational Therapy Eval ---
OT Evaluation-General/PLF Medical Diagnosis Admission Date Apr 27, 2020 at 15:10 Medical Diagnosis: acute hypoxic respiratory failure Onset Date: Apr 27, 2020 Therapy Diagnosis Therapy Diagnosis: Decreased ADL status Height/Weight Height (Feet): 5 Height (Inches): 8.00 Weight (Pounds): 238 Weight (Ounces): 5.0 Precautions Precautions/Isolations: Airborne Isolation, Fall Prevention Referral Physician: Catalina Referral Reason: Activity Tolerance, Self Care, Evaluation/Treatment, Strengthening/ROM Medical History Additional Medical History Reverse total L shoulder surgery 04/18 Current History Admits with SOB 04/21, COVID+ 04/24. Reviewed History: Yes Social History Home: Single Level Current Living Status: Spouse Entry Into Home: Level Entry ADL-Prior Level of Function SCALE: Activities may be completed with or without assistive devices. 4-Tqdtdtrwdr-ijhvgir completes the activity by him/herself with no assistance from a helper. 5-Set-up or Clean-up Assistance-helper sets up or cleans up; patient completes activity. [place] assists only prior to or following the activity. 4-Supervision or Touching Assistance-helper provides verbal cues and/or touching /steadying and/or contact guard assistance as patient completes activity. Assistance may be provided throughout the activity or intermittently. 3-Partial/Moderate Assistance-helper does LESS THAN HALF the effort. [place] lifts, holds or supports trunk or limbs, but provides less than half the effort. 2-Substantial/Maximal Assistance-helper does MORE THAN HALF the effort. [place] lifts or holds trunk or limbs and provides more than half the effort. 7-Cgrrpyros-ikhlwl does ALL the effort. Patient does none of the effort to complete the activity. Or, the assistance of 2 or more helpers is required for the patient to complete the activity. If activity was not attempted, code reason: 7-Patient Refused. 9-Not Applicable-not attempted and the patient did not perform the activity before the current illness, exacerbation or injury. 10-Not Attempted due to Environmental Limitations-(lack of equipment, weather restraints, etc.). 88-Not Attempted due to Medical Conditions or Safety Concerns. ADL PLOF Comments Pt was IND without use of AD prior. Self Care: Independent Functional Cognition: Independent DME/Equipment: Grab Bars, Tall Toilet, Tub/Shower Occupation: retired. Drive Self: Yes OT Current Status Subjective Pt seen upright in bed. Pt alert/ oriented. Pt agrees to OT eval/ treat. Pt's 02 sats mid 90's at rest and mid 90's post ambulation/ standing. Mental Status/Objective Patient Orientation: Person, Place, Situation, Normal For Age Attachments: Macias Catheter, Oxygen, SCD's, Telemetry Current Glasses/Contacts: Yes Hand Dominance: Right Upper Extremity ROM WFL RUE L joints distal to shoulder WFL Upper Extremity Coordination WFL BUE Upper Extremity Sensation WFL BUE Upper Extremity Strength WFL BUE (L shoulder DNT) Edema: none noted. ADL-Treatment Eating (QC): 6 On/Off Footwear (QC): 3 (Pt able to doff, min A to start sock ) Toileting Hygiene (QC): 4 (per clincial judgment CGA- pt states no need for BM at this time.) Other Treatments Pt supine to sit with SBA. per notes, L shoulder surgery 04/18. Per pt, total reverse L shoulder surgery. Pt states had prior total reverse to R shoulder, acknowledges precautions. Pt sits EOB to complete UE MMT/ ROM to all joints exc luding L shoulder. Pt sit to stand with CGA, states dizziness upon stance and minimally loses balance 2x in stance. Post dizziness, pt takes ~5 steps to recliner to sit. Pt sits to complete LE ex. Pt stands with CGA and use of walker to support R side to complete pendulums (~15 reps in circles, reverse circles, and back/ forth). No LOB, no c/o dizziness, no SOB. 02 at 93% post-activity and quickly returns to 96% after sit.[place] utilized to position L arm for comfort. Pt in recliner with call light in reach, all needs met. Education OT Patient Education: Correct positioning, Modified ADL techniques, Purpose of tx/functional activities, Safety issues Teaching Recipient: Patient Teaching Methods: Demonstration, Discussion Response to Teaching: Verbalize Understanding, Return Demonstration OT Escrow Representative Goals Escrow Representative Goals Time Frame: May 07, 2020 Eating (QC): 6 Oral Hygiene (QC): 6 Toileting Hygiene (QC): 6 Shower/Bathe Self (QC): 6 Upper Body Dressing (QC): 6 Lower Body Dressing (QC): 6 On/Off Footwear (QC): 6 Additional Goals: 1-Demonstrate ADL Tasks, 2-Verbalize Understanding, 3- ImproveStrength/Jossy 1=Demonstrate adherence to instructed precautions during ADL tasks. 2=Patient will verbalize/demonstrate understanding of assistive devices/modifications for ADL. 3=Patient will improve strength/tolerance for activity to enable patient to perform ADL's. OT Education/Plan Problem List/Assessment Assessment: Decreased Activ Tolerance, Decreased UE Strength, Dependent Transfers, Impaired Funct Balance, Impaired I ADL's, Impaired Self-Care Skills, Restricted Funct UE ROM Discharge Recommendations Plan/Recommendations: Continue POC Therapy Discharge Recommendati: Home & Family, Post Acute OT Treatment Plan/Plan of Care Treatment,Training & Education: Yes Patient would benefit from OT for education, treatment and training to promote independence in ADL's, mobility, safety and/or upper extremity function for ADL's. Plan of Care: ADL Retraining, Functional Mobility, UE Funct Exercise/Act Treatment Duration: May 07, 2020 Frequency: 5 times per week Estimated Hrs Per Day: .25 hour per day Agreement: Yes Rehab Potential: Fair Time/GCodes Start Time: 13:00 Stop Time: 13:20 Total Time Billed (hr/min): 20 Billed Treatment Time 1, EVM (20) MARCELA GUAMAN OTR Apr 30, 2020 13:45
[2020-04-30] MEDS: REMDESIVIR INJ (NON-FORMULARY) 100 MG in NS (IVPB) 230 ML IV SCH (14:32)
[2020-04-30] MEDS: cefTRIAXone 1,000 MG/SWFI 10 ML IV PUSH IV SCH ×2 (16:03)
[2020-04-30] MEDS: AZITHROMYCIN 500 MG/NS 250 ML IVPB IV SCH ×2 (16:04)
[2020-04-30] MEDS: LORATADINE (CLARITIN) 10 MG TAB PO SCH (20:22)
[2020-04-30] MEDS: SERTRALINE 50 MG (ZOLOFT) TABLET PO SCH (20:23)
[2020-04-30] MEDS: meTOprolol TARTRATE 25 MG (LOPRESSOR) TABLET PO SCH (20:23)
[2020-04-30] MEDS: hydrOXYzine (ATARAX) 10 MG TAB PO PRN (20:23)
[2020-05-01] VITALS (23 sets, daily range): BP systolic 91–138; BP diastolic 55–100
[2020-05-01] MEDS: RT-ALBUTEROL INHALER HFA (VENTOLIN HFA) 18 GM IH SCH ×6 (02:22→22:17)
[2020-05-01] MEDS: EPINEPHrine 1 MG INJECTION 4 MG in NS (IVPB) 246 ML IV SCH ×4 (02:35→21:30)
[2020-05-01] MEDS: ENOXAPARIN 100 MG/1 ML (LOVENOX) SYR SC SCH ×2 (02:35→15:46)
[2020-05-01 04:39] LABS: BASOPHILS % (AUTO) 0 % (0-10); EOSINOPHILS # (AUTO) 0.1 10^3/uL (0.0-0.3); EOSINOPHILS % (AUTO) 1 % (0-10); HEMATOCRIT 36 % (40-54); HEMOGLOBIN 12.1 g/dL (13.3-17.7); LYMPHOCYTES # (AUTO) 0.8 10^3/uL (1.0-4.0); LYMPHOCYTES % (AUTO) 11 % (12-44); MEAN CORPUSCULAR HEMOGLOBIN 28 pg (25-34); MEAN CORPUSCULAR HGB CONC 33 g/dL (32-36); MEAN CORPUSCULAR VOLUME 85 fL (80-99); MEAN PLATELET VOLUME 10.4 fL (9.0-12.2); MONOCYTES # (AUTO) 0.2 10^3/uL (0.0-1.0); MONOCYTES % (AUTO) 3 % (0-12); NEUTROPHILS # (AUTO) 5.8 10^3/uL (1.8-7.8); NEUTROPHILS % (AUTO) 79 % (42-75); PLATELET COUNT 309 10^3/uL (130-400); WHITE BLOOD COUNT 7.3 10^3/uL (4.3-11.0)
[2020-05-01 05:02] LABS: CHLORIDE 104 MMOL/L (98-107); POTASSIUM 4.1 MMOL/L (3.6-5.0); SODIUM 138 MMOL/L (135-145)
[2020-05-01 05:03] LABS: CALCIUM 8.3 MG/DL (8.5-10.1)
[2020-05-01 05:04] LABS: GLUCOSE 100 MG/DL (70-105); TOTAL PROTEIN 6.2 GM/DL (6.4-8.2)
[2020-05-01 05:05] LABS: CARBON DIOXIDE 22 MMOL/L (21-32)
[2020-05-01 05:06] LABS: BILIRUBIN,TOTAL 0.7 MG/DL (0.1-1.0)
[2020-05-01 05:07] LABS: ALKALINE PHOSPHATASE 71 U/L (40-136); PHOSPHORUS 2.5 MG/DL (2.3-4.7)
[2020-05-01 05:08] LABS: CREATININE SERUM 0.87 MG/DL (0.60-1.30); GFR ESTIMATED > 60
[2020-05-01 05:09] LABS: BUN/CREATININE RATIO 29
[2020-05-01 05:11] LABS: ALANINE AMINOTRANSFERASE 49 U/L (0-55)
[2020-05-01] MEDS: KCL 20 MEQ TAB (K-DUR) PO SCH (05:16)
[2020-05-01] MEDS: MAGNESIUM 1 GM/100 ML IVPB 100 ML IV SCH (05:16)
[2020-05-01] MEDS: POTASSIUM CL 10MEQ/50ML IVPB 50 ML IV SCH (05:16)
[2020-05-01] MEDS: dexAMETHasone INJECTION 20 MG in NS (IVPB) 50 ML IV SCH (06:18)
[2020-05-01] MEDS: LEVOTHYROXINE 25 MCG (LEVOTHROID) TAB PO SCH (06:23)
[2020-05-01] MEDS: ADVAIR HFA 115/21 MCG INHALER 8 GM IH SCH ×2 (07:15→18:34)
[2020-05-01] MEDS: PANTOPRAZOLE 40 MG (PROTONIX) TAB PO SCH (08:08)
[2020-05-01] MEDS: VITAMIN D3 125 MCG (5,000 UNITS) CAPSULE PO SCH (08:08)
[2020-05-01] MEDS: ASPIRIN 81 MG CHEW (CHILDREN'S ASA) PO SCH (08:09)
[2020-05-01] MEDS: meTOprolol TARTRATE 25 MG (LOPRESSOR) TABLET PO SCH ×2 (08:09→21:30)
--- NOTE | 2020-05-01 09:04 | Progress Note - Hospitalist ---
Subjective HPI/CC On Admission Date Seen by Provider: May 01, 2020 Time Seen by Provider: 08:58 Subjective/Events-last exam Pt reports feeling better today. Was off BiPAP all night and was able to prone for a while. Vapotherming being weaned slowly. Objective Exam Vital Signs Vital Signs Date Time Temp Pulse Resp B/P (MAP) Pulse Ox O2 Delivery O2 Flow Rate FiO2 05/01/20 08:00 75 17 113/67 (82) 94 Vapotherm 35.00 80.00 05/01/20 07:18 80 05/01/20 02:38 35.6 Capillary Refill : Less Than 3 Seconds General Appearance: No Apparent Distress, WD/WN Respiratory: No Respiratory Distress, Decreased Breath Sounds (in bases and coarse throughout otherwise); No Wheezing; Other (on Vapotherm) Cardiovascular: Regular Rate, Rhythm, No Murmur Gastrointestinal: Normal Bowel Sounds, Non Tender, Soft Neurologic/Psychiatric: Alert, Oriented x3, Normal Mood/Affect Results/Procedures Lab Laboratory Tests 05/01/20 04:05 Patient resulted labs reviewed. Assessment/Plan Assessment and Plan Assess & Plan/Chief Complaint COVID-19 with acute hypoxic respiratory failure KEVIN COPD -Oxygen -- Currently on Vapotherm 80% at 35 lpm -BiPAP 15/5 QHS and PRN -Remdesivir and S/p 1 unit of convalescent plasma -Daily CMP -Therapeutic dose lovenox due to elevated d-dimer - Decadron to 20mg IV daily -Continue Rocephin and Azithromycin - Did well with proning overnight, encouraged continued proning as able - IS - Continue Advair CAD hx of CABG NIDDM HX of tobacco use Quit in 2007 Continue home aspirin and statin Continue metoprolol Hypothyroidism Continue home synthroid Recent shoulder surgery Dressing orders per Dr Dominguez Pain control PT/OT GI/DVT ppx -Lovenox and protonix Diagnosis/Problems Diagnosis/Problems (1) CAD (coronary artery disease) Status: Chronic Qualifiers: Coronary Disease-Associated Artery/Lesion type: [place] artery [place] vs. transplanted heart: [place] heart Associated angina: without angina Qualified Codes: I25.10 - Atherosclerotic heart disease of [place] coronary artery without angina pectoris (2) COPD (chronic obstructive pulmonary disease) Status: Chronic Qualifiers: COPD type: COPD with acute lower respiratory infection Qualified Codes: J44.0 - Chronic obstructive pulmonary disease with (acute) lower respiratory infection (3) Acute respiratory failure Status: Acute Qualifiers: Respiratory failure complication: hypoxia Qualified Codes: J96.01 - Acute respiratory failure with hypoxia (4) Hypertension Status: Chronic Qualifiers: Hypertension type: essential hypertension Qualified Codes: I10 - Essential (primary) hypertension (5) HLD (hyperlipidemia) Status: Chronic Qualifiers: Hyperlipidemia type: mixed hyperlipidemia Qualified Codes: E78.2 - Mixed hyperlipidemia (6) Prophylactic measure Status: Acute (7) Respiratory tract infection due to severe acute respiratory syndrome coronavirus 2 (SARS-CoV-2) Status: Acute (8) Pneumonia due to COVID-19 virus Status: Acute Clinical Quality Measures DVT/VTE Risk/Contraindication: Risk Factor Score Per Nursin RFS Level Per Nursing on Admit: 4+=Very High DAJUAN JIMENEZ MD May 01, 2020 09:04
--- NOTE | 2020-05-01 09:26 | NUR ---
SPOKE WITH PATIENTS , KARYNA AND UPDATED ON PATIENTS CONDITION. ALL QUESTIONS ASKED WITH NO FURTHER CONCERNS NOTED. PT HAS BEEN CALLING INTO PATIENTS ROOM AND SPEAKING WITH PATIENT THROUGHOUT DAY. PT IS SITTING UP IN CHAIR IN [facility].
[2020-05-01] MEDS ORDERED: FUROSEMIDE 40 MG/4 ML INJ (LASIX) IVP NR (12:00)
--- NOTE | 2020-05-01 12:06 | Occupational Ther Daily Note ---
OT Current Status-Daily Note Subjective Pt laying in bed, agreeable to OT Tx. ADL-Treatment Therapy Code Descriptions/Definitions Functional [place] Measure: 0=Not Assessed/NA 4=Minimal Assistance 1=Total Assistance 5=Supervision or Setup 2=Maximal Assistance 6=Modified [place] 3=Moderate Assistance 7=Complete IndependenceSCALE: Activities may be completed with or without assistive devices. 5-Eeiwawalgk-wqrzvbx completes the activity by him/herself with no assistance from a helper. 5-Set-up or Clean-up Assistance-helper sets up or cleans up; patient completes activity. [place] assists only prior to or following the activity. 4-Supervision or Touching Assistance-helper provides verbal cues and/or touching/steadying and/or contact guard assistance as patient completes activity. Assistance may be provided throughout the activity or intermittently. 3-Partial/Moderate Assistance-helper does LESS THAN HALF the effort. [place] lifts, holds or supports trunk or limbs, but provides less than half the effort. 2-Substantial/Maximal Assistance-helper does MORE THAN HALF the effort. [place] lifts or holds trunk or limbs and provides more than half the effort. 3-Jamrqseat-mopuug does ALL the effort. Patient does none of the effort to com plete the activity. Or, the assistance of 2 or more helpers is required for the patient to complete the activity. If activity was not attempted, code reason: 7-Patient Refused. 9-Not Applicable-not attempted and the patient did not perform the activity before the current illness, exacerbation or injury. 10-Not Attempted due to Environmental Limitations-(lack of equipment, weather restraints, etc.). 88-Not Attempted due to Medical Conditions or Safety Concerns. Other Treatment OT tx with focus on increasing RUE functional strength and endurance, pt had recent L shoulder replacement. Pt educated on theraband exercises, with moderate resistance red theraband. Pt completed the following exercises with RUE: x10 reps shoulder flexion, x15 reps elbow flexion, x15 reps horizontal abduction. Pt took rest breaks as needed, at one point O2 sat dropped to 89%, with cue to breath in through his nose pt's oxygen increased to the low 90's. OT tied theraband to bed rail on pt's right side, pt instructed to complete exercises a couple times a day as he is able to, pt verbalized understanding. HEP of UE exercises left in pt's room. Post OT tx, pt laying in bed, call light in reach and all needs met. Education OT Patient Education: Correct positioning, Energy conservation, Modified ADL techniques, Progress toward Goal/Update tx plan, Purpose of tx/functional activities, Safety issues, Transfer techniques Teaching Recipient: Patient Teaching Methods: Discussion Response to Teaching: Verbalize Understanding OT Process Control Engineer Goals Assisted Goals Time Frame: May 07, 2020 Eating (QC): 6 Oral Hygiene (QC): 6 Toileting Hygiene (QC): 6 Shower/Bathe Self (QC): 6 Upper Body Dressing (QC): 6 Lower Body Dressing (QC): 6 On/Off Footwear (QC): 6 Additional Goals: 1-Demonstrate ADL Tasks, 2-Verbalize Understanding, 3-ImproveStrength/Jossy 1=Demonstrate adherence to instructed precautions during ADL tasks. 2=Patient will verbalize/demonstrate understanding of assistive devices/modifications for ADL. 3=Patient will improve strength/tolerance for activity to enable patient to perform ADL's. OT Education/Plan Problem List/Assessment Assessment: Decreased Activ Tolerance, Decreased UE Strength, Impaired I ADL's, Impaired Self-Care Skills, Restricted Funct UE ROM Discharge Recommendations Plan/Recommendations: Continue POC Treatment Plan/Plan of Care Patient would benefit from OT for education, treatment and training to promote independence in ADL's, mobility, safety and/or upper extremity function for ADL's. Plan of Care: ADL Retraining, Functional Mobility, UE Funct Exercise/Act Treatment Duration: May 07, 2020 Frequency: 5 times per week Estimated Hrs Per Day: .25 hour per day Agreement: Yes Rehab Potential: Fair Time/GCodes Start Time: 11:10 Stop Time: 11:22 Total Time Billed (hr/min): 12 Billed Treatment Time 1, EX OZ DIAZ OT May 01, 2020 12:06
--- NOTE | 2020-05-01 12:37 | Diagnostic Imaging Report ---
INDICATION: Hypoxia and pneumonia. Time of exam 12:15 p.m. Correlation is made with prior chest from 04/27/2020. Changes of median sternotomy and CABG are noted. Bilateral predominantly basilar pulmonary infiltrates persist and are similar to perhaps slightly increased since prior. No effusion or pneumothorax is identified. IMPRESSION: Bibasilar pulmonary infiltrates demonstrate some increase when compared to the examination 4 days earlier. Dictated by: Dictated on workstation # [id number]
--- NOTE | 2020-05-01 14:20 | Physical Therapy Daily Note ---
PT Daily Note-Current Subjective Patient in bed pre tx, agrees to PT, has no complaints of pain, states he feels like he is breathing a little better today. Appearance Patient in recliner post tx with nurse call, phone, tray, all needs met. Mental Status Patient Orientation: Person, Place, Situation Attachments: Oxygen, [place] Catheter vapotherm Transfers SCALE: Activities may be completed with or without assistive devices. 4-Vzekresyji-szriulb completes the activity by him/herself with no assistance from a helper. 5-Set-up or Clean-up Assistance-helper sets up or cleans up; patient completes activity. [place] assists only prior to or following the activity. 4-Supervision or Touching Assistance-helper provides verbal cues and/or touching /steadying and/or contact guard assistance as patient completes activity. Assistance may be provided throughout the activity or intermittently. 3-Partial/Moderate Assistance-helper does LESS THAN HALF the effort. [place] lifts, holds or supports trunk or limbs, but provides less than half the effort. 2-Substantial/Maximal Assistance-helper does MORE THAN HALF the effort. [place] lifts or holds trunk or limbs and provides more than half the effort. 0-Icasnbkfj-rmnpov does ALL the effort. Patient does none of the effort to complete the activity. Or, the assistance of 2 or more helpers is required for the patient to complete the activity. If activity was not attempted, code reason: 7-Patient Refused. 9-Not Applicable-not attempted and the patient did not perform the activity before the current illness, exacerbation or injury. 10-Not Attempted due to Environmental Limitations-(lack of equipment, weather restraints, etc.). 88-Not Attempted due to Medical Conditions or Safety Concerns. Roll Left & Right (QC): 6 Lying to Sitting/Side of Bed(Q: 6 Sit to Stand (QC): 4 Chair/Vru-ro-Fvtld Xfer(QC): 4 Gait Training Distance: 50' Walk 10 feet (QC): 4 Walk 50 ft with 2 Turns(QC): 4 Gait Assistive Device: FWW CGA, patient can only ambulate a few feet forward and back due to vapotherm, he does this many times for a total distance of about 50', patient is much more steady on his feet today, no LOB Exercises Seated Therapy Exercises: Ankle pumps, Long arc quads Seated Reps: 20 Treatments bed mobility and transfers, ambulation, LE exercise Assessment Current Status: Fair Progress improved balance and mobility, but patient's O2 went down to 85% with activity, took about 1 min with purse lip breathing to bring it back to 92% PT Jail Goals [employer] Director Goals PT Jail Goals Time Frame: May 07, 2020 Roll Left & Right (QC): 6 Sit to Lying (QC): 6 Lying-Sitting on Side/Bed(QC): 6 Sit to Stand (QC): 6 Chair/Otx-wy-Olqmr Xfer(QC): 6 Walk 10 feet (QC): 4 Walk 50ft with 2 Turns (QC): 4 PT Plan Problem List Problem List: Activity Tolerance, Functional Strength, Safety, Balance, Gait, Transfer Treatment/Plan Treatment Plan: Continue Plan of Care Treatment Plan: Bed Mobility, Education, Functional Activity Jossy, Functional Strength, Gait, Safety, Therapeutic Exercise, Transfers Treatment Duration: May 07, 2020 Frequency: 6 times per week Estimated Hrs Per Day: .25 hour per day Patient and/or Family Agrees t: Yes Safety Risks/Education Patient Education: Gait Training, Transfer Techniques, Correct Positioning, Safety Issues Teaching Recipient: Patient Teaching Methods: Demonstration, Discussion Response to Teaching: Reinforcement Needed Time/GCodes Time In: 1325 Time Out: 1335 Total Billed Treatment Time: 10 Total Billed Treatment 1 visit FA ADA TREJO PT May 01, 2020 14:20
[2020-05-01] MEDS: REMDESIVIR INJ (NON-FORMULARY) 100 MG in NS (IVPB) 230 ML IV SCH (15:47)
[2020-05-01] MEDS: AZITHROMYCIN 500 MG/NS 250 ML IVPB IV SCH ×2 (17:28)
[2020-05-01] MEDS: cefTRIAXone 1,000 MG/SWFI 10 ML IV PUSH IV SCH ×2 (17:28)
[2020-05-01] MEDS: hydrOXYzine (ATARAX) 10 MG TAB PO PRN (21:30)
[2020-05-01] MEDS: SERTRALINE 50 MG (ZOLOFT) TABLET PO SCH (21:30)
[2020-05-01] MEDS: LORATADINE (CLARITIN) 10 MG TAB PO SCH (21:30)
[2020-05-02] VITALS (24 sets, daily range): BP systolic 86–134; BP diastolic 59–82
[2020-05-02] MEDS: RT-ALBUTEROL INHALER HFA (VENTOLIN HFA) 18 GM IH SCH ×5 (01:33→20:10)
[2020-05-02] MEDS: ENOXAPARIN 100 MG/1 ML (LOVENOX) SYR SC SCH ×2 (01:47→15:24)
[2020-05-02] MEDS: EPINEPHrine 1 MG INJECTION 4 MG in NS (IVPB) 246 ML IV SCH ×3 (01:48→19:35)
[2020-05-02 03:21] LABS: BASOPHILS % (AUTO) 0 % (0-10); EOSINOPHILS % (AUTO) 0 % (0-10); HEMATOCRIT 38 % (40-54); HEMOGLOBIN 12.3 g/dL (13.3-17.7); LYMPHOCYTES # (AUTO) 0.9 10^3/uL (1.0-4.0); LYMPHOCYTES % (AUTO) 12 % (12-44); MEAN CORPUSCULAR HEMOGLOBIN 28 pg (25-34); MEAN CORPUSCULAR HGB CONC 33 g/dL (32-36); MEAN CORPUSCULAR VOLUME 84 fL (80-99); MONOCYTES # (AUTO) 0.4 10^3/uL (0.0-1.0); MONOCYTES % (AUTO) 5 % (0-12); NEUTROPHILS # (AUTO) 6.2 10^3/uL (1.8-7.8); NEUTROPHILS % (AUTO) 77 % (42-75); PLATELET COUNT 311 10^3/uL (130-400)
[2020-05-02 03:31] LABS: ALBUMIN 3.1 GM/DL (3.2-4.5); CHLORIDE 101 MMOL/L (98-107); POTASSIUM 4.1 MMOL/L (3.6-5.0); SODIUM 135 MMOL/L (135-145)
[2020-05-02 03:32] LABS: CALCIUM 8.5 MG/DL (8.5-10.1)
[2020-05-02 03:33] LABS: GLUCOSE 128 MG/DL (70-105); TOTAL PROTEIN 6.4 GM/DL (6.4-8.2)
[2020-05-02 03:34] LABS: CARBON DIOXIDE 24 MMOL/L (21-32)
[2020-05-02 03:35] LABS: BILIRUBIN,TOTAL 0.7 MG/DL (0.1-1.0)
[2020-05-02 03:36] LABS: PHOSPHORUS 3.2 MG/DL (2.3-4.7)
[2020-05-02 03:37] LABS: ALKALINE PHOSPHATASE 68 U/L (40-136); CREATININE SERUM 0.86 MG/DL (0.60-1.30); GFR ESTIMATED > 60
[2020-05-02 03:38] LABS: BUN/CREATININE RATIO 27
[2020-05-02 03:40] LABS: ALANINE AMINOTRANSFERASE 51 U/L (0-55); MAGNESIUM 2.1 MG/DL (1.6-2.4)
[2020-05-02] MEDS: MAGNESIUM 1 GM/100 ML IVPB 100 ML IV SCH (03:50)
[2020-05-02] MEDS: POTASSIUM CL 10MEQ/50ML IVPB 50 ML IV SCH (03:50)
[2020-05-02] MEDS: KCL 20 MEQ TAB (K-DUR) PO SCH (03:50)
[2020-05-02] MEDS: dexAMETHasone INJECTION 20 MG in NS (IVPB) 50 ML IV SCH (04:42)
[2020-05-02] MEDS: LEVOTHYROXINE 25 MCG (LEVOTHROID) TAB PO SCH (04:42)
[2020-05-02] MEDS: ADVAIR HFA 115/21 MCG INHALER 8 GM IH SCH ×2 (07:47→20:08)
[2020-05-02] MEDS: ASPIRIN 81 MG CHEW (CHILDREN'S ASA) PO SCH (09:14)
[2020-05-02] MEDS: VITAMIN D3 125 MCG (5,000 UNITS) CAPSULE PO SCH (09:14)
[2020-05-02] MEDS: meTOprolol TARTRATE 25 MG (LOPRESSOR) TABLET PO SCH ×2 (09:14→20:22)
[2020-05-02] MEDS: PANTOPRAZOLE 40 MG (PROTONIX) TAB PO SCH (09:14)
--- NOTE | 2020-05-02 10:40 | Progress Note - Hospitalist ---
Subjective HPI/CC On Admission Date Seen by Provider: May 02, 2020 Time Seen by Provider: 10:37 Subjective/Events-last exam Pt reports doing better today. No new complaints. Was off BiPAP all night. Objective Exam Vital Signs Vital Signs Date Time Temp Pulse Resp B/P (MAP) Pulse Ox O2 Delivery O2 Flow Rate FiO2 05/02/20 10:00 81 24 114/67 (83) 97 Vapotherm 40.00 70.00 05/02/20 09:10 70 05/02/20 03:43 36.0 Capillary Refill : Less Than 3 Seconds General Appearance: No Apparent Distress, WD/WN Respiratory: No Accessory Muscle Use, Rhonci; No Wheezing; Other (on Vapotherm) Cardiovascular: Regular Rate, Rhythm, No Murmur Gastrointestinal: Normal Bowel Sounds, Non Tender, Soft Neurologic/Psychiatric: Alert, Oriented x3 Results/Procedures Lab Laboratory Tests 05/02/20 03:06 Patient resulted labs reviewed. Assessment/Plan Assessment and Plan Assess & Plan/Chief Complaint COVID-19 with acute hypoxic respiratory failure KEVIN COPD -Oxygen -- Currently on Vapotherm 80% at 35 lpm -BiPAP prn at night but has done well with Vapotherm -Remdesivir and S/p 1 unit of convalescent plasma -Daily CMP -Therapeutic dose lovenox due to elevated d-dimer - Decadron to 20mg IV daily -Continue Rocephin and Azithromycin - Attempting proning as able - IS - Continue Advair CAD hx of CABG NIDDM HX of tobacco use Quit in 2007 Continue home aspirin and statin Continue metoprolol Hypothyroidism Continue home synthroid Recent shoulder surgery Dressing orders per Dr Dominguez Pain control PT/OT GI/DVT ppx -Lovenox and protonix Diagnosis/Problems Diagnosis/Problems (1) CAD (coronary artery disease) Status: Chronic Qualifiers: Coronary Disease-Associated Artery/Lesion type: [place] artery [place] vs. transplanted heart: [place] heart Associated angina: without angina Qualified Codes: I25.10 - Atherosclerotic heart disease of [place] coronary artery without angina pectoris (2) COPD (chronic obstructive pulmonary disease) Status: Chronic Qualifiers: COPD type: COPD with acute lower respiratory infection Qualified Codes: J44.0 - Chronic obstructive pulmonary disease with (acute) lower respiratory infection (3) Acute respiratory failure Status: Acute Qualifiers: Respiratory failure complication: hypoxia Qualified Codes: J96.01 - Acute respiratory failure with hypoxia (4) Hypertension Status: Chronic Qualifiers: Hypertension type: essential hypertension Qualified Codes: I10 - Essential (primary) hypertension (5) HLD (hyperlipidemia) Status: Chronic Qualifiers: Hyperlipidemia type: mixed hyperlipidemia Qualified Codes: E78.2 - Mixed hyperlipidemia (6) Prophylactic measure Status: Acute (7) Respiratory tract infection due to severe acute respiratory syndrome coronavirus 2 (SARS-CoV-2) Status: Acute (8) Pneumonia due to COVID-19 virus Status: Acute Clinical Quality Measures DVT/VTE Risk/Contraindication: Risk Factor Score Per Nursin RFS Level Per Nursing on Admit: 4+=Very High DAJUAN JIMENEZ MD May 02, 2020 10:40
--- NOTE | 2020-05-02 13:16 | Physical Therapy Daily Note ---
PT Daily Note-Current Subjective Patient in recliner pre tx, agrees to PT, has no complaints of pain, states he feels like his breathing continues to improve. Appearance Patient in recliner post tx with nurse call, phone, tray, all needs met. Mental Status Patient Orientation: Person, Place, Situation Attachments: Oxygen, [place] Catheter vapotherm Transfers SCALE: Activities may be completed with or without assistive devices. 7-Qxpxyolyfk-zvxyfbv completes the activity by him/herself with no assistance from a helper. 5-Set-up or Clean-up Assistance-helper sets up or cleans up; patient completes activity. [place] assists only prior to or following the activity. 4-Supervision or Touching Assistance-helper provides verbal cues and/or touchi ng/steadying and/or contact guard assistance as patient completes activity. Assistance may be provided throughout the activity or intermittently. 3-Partial/Moderate Assistance-helper does LESS THAN HALF the effort. [place] lifts, holds or supports trunk or limbs, but provides less than half the effort. 2-Substantial/Maximal Assistance-helper does MORE THAN HALF the effort. [place] lifts or holds trunk or limbs and provides more than half the effort. 3-Lxfebuvjz-ijqtli does ALL the effort. Patient does none of the effort to complete the activity. Or, the assistance of 2 or more helpers is required for the patient to complete the activity. If activity was not attempted, code reason: 7-Patient Refused. 9-Not Applicable-not attempted and the patient did not perform the activity before the current illness, exacerbation or injury. 10-Not Attempted due to Environmental Limitations-(lack of equipment, weather restraints, etc.). 88-Not Attempted due to Medical Conditions or Safety Concerns. Sit to Stand (QC): 4 SBA Gait Training Distance: 50' Walk 10 feet (QC): 4 Walk 50 ft with 2 Turns(QC): 4 Gait Assistive Device: FWW Patient is only able to ambulate a few feet at a time due to vapotherm line so he ambulates forward and back several times for a total of about 50', SBA Exercises Seated Therapy Exercises: Ankle pumps, Long arc quads Seated Reps: 20 Treatments transfers, ambulation, LE exercise Assessment Current Status: Fair Progress slowly improving strength, O2 stayed above 90% with ambulation PT Residential Goals Residential Goals PT Residential Goals Time Frame: May 07, 2020 Roll Left & Right (QC): 6 Sit to Lying (QC): 6 Lying-Sitting on Side/Bed(QC): 6 Sit to Stand (QC): 6 Chair/Ysj-ln-Gvqob Xfer(QC): 6 Walk 10 feet (QC): 4 Walk 50ft with 2 Turns (QC): 4 PT Plan Problem List Problem List: Activity Tolerance, Functional Strength, Safety, Balance, Gait, Transfer Treatment/Plan Treatment Plan: Continue Plan of Care Treatment Plan: Bed Mobility, Education, Functional Activity Jossy, Functional Strength, Gait, Safety, Therapeutic Exercise, Transfers Treatment Duration: May 07, 2020 Frequency: 6 times per week Estimated Hrs Per Day: .25 hour per day Patient and/or Family Agrees t: Yes Safety Risks/Education Patient Education: Gait Training, Transfer Techniques, Correct Positioning, Safety Issues Teaching Recipient: Patient Teaching Methods: Demonstration, Discussion Response to Teaching: Reinforcement Needed Time/GCodes Time In: 1300 Time Out: 1312 Total Billed Treatment Time: 12 Total Billed Treatment 1 visit FA ADA CALDWELL PT May 02, 2020 13:16
--- NOTE | 2020-05-02 14:28 | Occupational Ther Daily Note ---
OT Current Status-Daily Note Subjective Pt in recliner upon entry. Pt alert/ oriented. Agrees to sponge bath/ exercises. Mental Status/Objective Patient Orientation: Normal For Age Attachments: IV, Oxygen, Telemetry ADL-Treatment Therapy Code Descriptions/Definitions Functional [place] Measure: 0=Not Assessed/NA 4=Minimal Assistance 1=Total Assistance 5=Supervision or Setup 2=Maximal Assistance 6=Modified [place] 3=Moderate Assistance 7=Complete IndependenceSCALE: Activities may be completed with or without assistive devices. 9-Vbsautbvpr-pyglqmv completes the activity by him/herself with no assistance from a helper. 5-Set-up or Clean-up Assistance-helper sets up or cleans up; patient completes activity. [place] assists only prior to or following the activity. 4-Supervision or Touching Assistance-helper provides verbal cues and/or touching/steadying and/or contact guard assistance as patient completes activity. Assistance may be provided throughout the activity or intermittently. 3-Partial/Moderate Assistance-helper does LESS THAN HALF the effort. [place] lifts, holds or supports trunk or limbs, but provides less than half the effort. 2-Substantial/Maximal Assistance-helper does MORE THAN HALF the effort. [place] lifts or holds trunk or limbs and provides more than half the effort. 3-Zcanofswt-hdaysn does ALL the effort. Patient does none of the effort to complete the activity. Or, the assistance of 2 or more helpers is required for the patient to complete the activity. If activity was not attempted, code reason: 7-Patient Refused. 9-Not Applicable-not attempted and the patient did not perform the activity before the current illness, exacerbation or injury. 10-Not Attempted due to Environmental Limitations-(lack of equipment, weather restraints, etc.). 88-Not Attempted due to Medical Conditions or Safety Concerns. Eating (QC): 6 Shower/Bathe Self (QC): 4 (SBA all tasks) Upper Body Dressing (QC): 4 (CGA for assist with gown) Toileting Hygiene (QC): 4 (CGA in stance.) Other Treatment Pt in recliner. Sit to stand with CGA. Pt completes sponge bath in recliner/ in stance. At walker level, pt complete UE pendulum ex to LUE. Pt requires SBA-CGA during this task. Pt sits in recliner, LUE adjusted with pillow for shoulder support. Pt states 5/10 pain, though denies pain med request at this time, all needs met, call lit in reach. Education OT Patient Education: Correct positioning, Exercise program, Home exercise program, Purpose of tx/functional activities, Safety issues Teaching Recipient: Patient Teaching Methods: Demonstration, Discussion Response to Teaching: Verbalize Understanding, Return Demonstration OT Sr. Director Product Management Goals [facility] Goals Time Frame: May 07, 2020 Eating (QC): 6 Oral Hygiene (QC): 6 Toileting Hygiene (QC): 6 Shower/Bathe Self (QC): 6 Upper Body Dressing (QC): 6 Lower Body Dressing (QC): 6 On/Off Footwear (QC): 6 Additional Goals: 1-Demonstrate ADL Tasks, 2-Verbalize Understanding, 3- ImproveStrength/Jossy 1=Demonstrate adherence to instructed precautions during ADL tasks. 2=Patient will verbalize/demonstrate understanding of assistive devices/modifications for ADL. 3=Patient will improve strength/tolerance for activity to enable patient to perform ADL's. OT Education/Plan Problem List/Assessment Assessment: Decreased Activ Tolerance, Decreased UE Strength, Dependent Transfers, Impaired Funct Balance, Impaired I ADL's, Impaired Self-Care Skills Discharge Recommendations Plan/Recommendations: Continue POC Therapy Discharge Recommendati: Home & Family Treatment Plan/Plan of Care Treatment,Training & Education: Yes Patient would benefit from OT for education, treatment and training to promote independence in ADL's, mobility, safety and/or upper extremity function for ADL's. Plan of Care: ADL Retraining, Functional Mobility, UE Funct Exercise/Act Treatment Duration: May 07, 2020 Frequency: 5 times per week Estimated Hrs Per Day: .25 hour per day Agreement: Yes Rehab Potential: Fair Time/GCodes Start Time: 13:25 Stop Time: 13:49 Total Time Billed (hr/min): 24 Billed Treatment Time 1, ADL (15), EX (9)= 24 MARCELA GUAMAN OTR May 02, 2020 14:28
[2020-05-02] MEDS ORDERED: FUROSEMIDE 40 MG/4 ML INJ (LASIX) IVP NR (16:30)
[2020-05-02] MEDS: LORATADINE (CLARITIN) 10 MG TAB PO SCH (20:22)
[2020-05-02] MEDS: SERTRALINE 50 MG (ZOLOFT) TABLET PO SCH (20:22)
[2020-05-03] VITALS (22 sets, daily range): BP systolic 89–110; BP diastolic 56–73
[2020-05-03] MEDS: RT-ALBUTEROL INHALER HFA (VENTOLIN HFA) 18 GM IH SCH ×6 (00:08→22:31)
[2020-05-03] MEDS: EPINEPHrine 1 MG INJECTION 4 MG in NS (IVPB) 246 ML IV SCH ×4 (02:44→23:29)
[2020-05-03] MEDS: ENOXAPARIN 100 MG/1 ML (LOVENOX) SYR SC SCH ×2 (03:45→17:01)
[2020-05-03 03:49] LABS: BASOPHILS % (AUTO) 0 % (0-10); EOSINOPHILS # (AUTO) 0.1 10^3/uL (0.0-0.3); EOSINOPHILS % (AUTO) 1 % (0-10); HEMATOCRIT 39 % (40-54); LYMPHOCYTES # (AUTO) 1.1 10^3/uL (1.0-4.0); LYMPHOCYTES % (AUTO) 11 % (12-44); MEAN CORPUSCULAR HEMOGLOBIN 28 pg (25-34); MEAN CORPUSCULAR HGB CONC 33 g/dL (32-36); MEAN CORPUSCULAR VOLUME 85 fL (80-99); MEAN PLATELET VOLUME 9.9 fL (9.0-12.2); MONOCYTES # (AUTO) 0.6 10^3/uL (0.0-1.0); MONOCYTES % (AUTO) 6 % (0-12); NEUTROPHILS # (AUTO) 7.2 10^3/uL (1.8-7.8); NEUTROPHILS % (AUTO) 76 % (42-75); PLATELET COUNT 354 10^3/uL (130-400); WHITE BLOOD COUNT 9.5 10^3/uL (4.3-11.0)
[2020-05-03 04:07] LABS: ALBUMIN 3.3 GM/DL (3.2-4.5); CHLORIDE 98 MMOL/L (98-107); POTASSIUM 4.3 MMOL/L (3.6-5.0); SODIUM 135 MMOL/L (135-145)
[2020-05-03 04:08] LABS: CALCIUM 8.9 MG/DL (8.5-10.1)
[2020-05-03 04:10] LABS: GLUCOSE 130 MG/DL (70-105); TOTAL PROTEIN 6.9 GM/DL (6.4-8.2)
[2020-05-03 04:11] LABS: CARBON DIOXIDE 25 MMOL/L (21-32)
[2020-05-03 04:12] LABS: BILIRUBIN,TOTAL 0.7 MG/DL (0.1-1.0)
[2020-05-03 04:13] LABS: ALKALINE PHOSPHATASE 75 U/L (40-136); CREATININE SERUM 0.96 MG/DL (0.60-1.30); GFR ESTIMATED > 60; PHOSPHORUS 3.9 MG/DL (2.3-4.7)
[2020-05-03 04:14] LABS: BUN/CREATININE RATIO 30
[2020-05-03 04:16] LABS: ALANINE AMINOTRANSFERASE 57 U/L (0-55); MAGNESIUM 2.2 MG/DL (1.6-2.4)
[2020-05-03] MEDS: POTASSIUM CL 10MEQ/50ML IVPB 50 ML IV SCH (04:42)
[2020-05-03] MEDS: KCL 20 MEQ TAB (K-DUR) PO SCH (04:43)
[2020-05-03] MEDS: MAGNESIUM 1 GM/100 ML IVPB 100 ML IV SCH (04:43)
[2020-05-03] MEDS: LEVOTHYROXINE 25 MCG (LEVOTHROID) TAB PO SCH (06:07)
[2020-05-03] MEDS: dexAMETHasone INJECTION 20 MG in NS (IVPB) 50 ML IV SCH (06:07)
[2020-05-03] MEDS: ADVAIR HFA 115/21 MCG INHALER 8 GM IH SCH ×2 (07:39→18:42)
[2020-05-03] MEDS: VITAMIN D3 125 MCG (5,000 UNITS) CAPSULE PO SCH (07:59)
[2020-05-03] MEDS: PANTOPRAZOLE 40 MG (PROTONIX) TAB PO SCH (08:00)
[2020-05-03] MEDS: ASPIRIN 81 MG CHEW (CHILDREN'S ASA) PO SCH (08:00)
[2020-05-03] MEDS: meTOprolol TARTRATE 25 MG (LOPRESSOR) TABLET PO SCH ×2 (08:03→19:40)
--- NOTE | 2020-05-03 10:13 | Progress Note - Hospitalist ---
Subjective HPI/CC On Admission Date Seen by Provider: May 03, 2020 Time Seen by Provider: 10:10 Subjective/Events-last exam Pt reports doing better today. Breathing well. No complaints. Needed BiPAP overnight. Now on Vapotherm and decreasing level. Up and about in room. Objective Exam Vital Signs Vital Signs Date Time Temp Pulse Resp B/P (MAP) Pulse Ox O2 Delivery O2 Flow Rate FiO2 05/03/20 09:08 71 18 101/61 (74) 96 Vapotherm 30.00 80.00 05/03/20 08:06 80 05/03/20 07:58 35.4 Capillary Refill : Less Than 3 Seconds General Appearance: No Apparent Distress, Chronically ill Respiratory: Decreased Breath Sounds, Other (on Vapotherm) Cardiovascular: Regular Rate, Rhythm, No Murmur Extremity: No Calf Tenderness, No Pedal Edema Neurologic/Psychiatric: Alert, Oriented x3 Results/Procedures Lab Laboratory Tests 05/03/20 03:34 Patient resulted labs reviewed. Assessment/Plan Assessment and Plan Assess & Plan/Chief Complaint COVID-19 with acute hypoxic respiratory failure KEVIN COPD -Oxygen -- Currently on Vapotherm 80% at 30 lpm -BiPAP prn at night but has done well with Vapotherm -Remdesivir and S/p 1 unit of convalescent plasma -Daily CMP -Therapeutic dose lovenox due to elevated d-dimer - Decadron to 20mg IV daily - Continue Rocephin and Azithromycin - Attempting proning as able - IS - Continue Advair CAD hx of CABG NIDDM HX of tobacco use Quit in 2007 Continue home aspirin and statin Continue metoprolol Hypothyroidism Continue home synthroid Recent shoulder surgery Dressing orders per Dr Dominguez Pain control PT/OT GI/DVT ppx -Lovenox and protonix Diagnosis/Problems Diagnosis/Problems (1) CAD (coronary artery disease) Status: Chronic Qualifiers: Coronary Disease-Associated Artery/Lesion type: [place] artery [place] vs. transplanted heart: [place] heart Associated angina: without angina Qualified Codes: I25.10 - Atherosclerotic heart disease of [place] coronary artery without angina pectoris (2) COPD (chronic obstructive pulmonary disease) Status: Chronic Qualifiers: COPD type: COPD with acute lower respiratory infection Qualified Codes: J44.0 - Chronic obstructive pulmonary disease with (acute) lower respiratory infection (3) Acute respiratory failure Status: Acute Qualifiers: Respiratory failure complication: hypoxia Qualified Codes: J96.01 - Acute respiratory failure with hypoxia (4) Hypertension Status: Chronic Qualifiers: Hypertension type: essential hypertension Qualified Codes: I10 - Essential (primary) hypertension (5) HLD (hyperlipidemia) Status: Chronic Qualifiers: Hyperlipidemia type: mixed hyperlipidemia Qualified Codes: E78.2 - Mixed hyperlipidemia (6) Prophylactic measure Status: Acute (7) Respiratory tract infection due to severe acute respiratory syndrome coronavirus 2 (SARS-CoV-2) Status: Acute (8) Pneumonia due to COVID-19 virus Status: Acute Clinical Quality Measures DVT/VTE Risk/Contraindication: Risk Factor Score Per Nursin RFS Level Per Nursing on Admit: 4+=Very High DAJUAN JIMENEZ MD May 03, 2020 10:13
--- NOTE | 2020-05-03 12:24 | Physical Therapy Daily Note ---
PT Daily Note-Current Subjective Agrees to pT. Reports he is feeling better. Transfers SCALE: Activities may be completed with or without assistive devices. 3-Anqhvhionk-zzdxdxw completes the activity by him/herself with no assistance from a helper. 5-Set-up or Clean-up Assistance-helper sets up or cleans up; patient completes activity. [place] assists only prior to or following the activity. 4-Supervision or Touching Assistance-helper provides verbal cues and/or touching/steadying and/or contact guard assistance as patient completes activity. Assistance may be provided throughout the activity or intermittently. 3-Partial/Moderate Assistance-helper does LESS THAN HALF the effort. [place] lifts, holds or supports trunk or limbs, but provides less than half the effort. 2-Substantial/Maximal Assistance-helper does MORE THAN HALF the effort. [place] lifts or holds trunk or limbs and provides more than half the effort. 4-Onkompxwt-irrnsv does ALL the effort. Patient does none of the effort to complete the activity. Or, the assistance of 2 or more helpers is required for the patient to complete the activity. If activity was not attempted, code reason: 7-Patient Refused. 9-Not Applicable-not attempted and the patient did not perform the activity before the current illness, exacerbation or injury. 10-Not Attempted due to Environmental Limitations-(lack of equipment, weather restraints, etc.). 88-Not Attempted due to Medical Conditions or Safety Concerns. Treatments Supine to sit with min assist and sit to stand with CGA. Standing ther ex for marching, mini squats as well as calf raises. Sit to stand x 5 reps with CGA. Pt up in chair post treatment with all needs met and attachments insitu. Assessment Current Status: Good Progress Feeling better and moving better. PT Die Holder Goals Halfway Goals PT Die Holder Goals Time Frame: May 07, 2020 Roll Left & Right (QC): 6 Sit to Lying (QC): 6 Lying-Sitting on Side/Bed(QC): 6 Sit to Stand (QC): 6 Chair/Cfj-mg-Rrdms Xfer(QC): 6 Walk 10 feet (QC): 4 Walk 50ft with 2 Turns (QC): 4 PT Plan Problem List Problem List: Activity Tolerance, Functional Strength, Safety, Balance, Gait, Transfer, Bed Mobility Treatment/Plan Treatment Plan: Continue Plan of Care Treatment Plan: Bed Mobility, Education, Functional Activity Jossy, Functional Strength, Gait, Safety, Therapeutic Exercise, Transfers Treatment Duration: May 07, 2020 Frequency: 6 times per week Estimated Hrs Per Day: .25 hour per day Patient and/or Family Agrees t: Yes Safety Risks/Education Patient Education: Safety Issues Teaching Recipient: Patient Teaching Methods: Discussion Response to Teaching: Reinforcement Needed Time/GCodes Time In: 1040 Time Out: 1056 Total Billed Treatment Time: 16 Total Billed Treatment visit EX 16 YESENIA PARKER PT May 03, 2020 12:24
[2020-05-03] MEDS: LORATADINE (CLARITIN) 10 MG TAB PO SCH (19:40)
[2020-05-03] MEDS: SERTRALINE 50 MG (ZOLOFT) TABLET PO SCH (19:40)
[2020-05-04] VITALS (13 sets, daily range): BP systolic 94–147; BP diastolic 55–87
[2020-05-04] MEDS: RT-ALBUTEROL INHALER HFA (VENTOLIN HFA) 18 GM IH SCH ×6 (01:45→22:30)
[2020-05-04] MEDS: ENOXAPARIN 100 MG/1 ML (LOVENOX) SYR SC SCH ×2 (03:10→16:59)
[2020-05-04 03:53] LABS: BASOPHILS % (AUTO) 0 % (0-10); EOSINOPHILS % (AUTO) 0 % (0-10); HEMATOCRIT 38 % (40-54); HEMOGLOBIN 12.4 g/dL (13.3-17.7); LYMPHOCYTES # (AUTO) 1.1 10^3/uL (1.0-4.0); LYMPHOCYTES % (AUTO) 11 % (12-44); MEAN CORPUSCULAR HEMOGLOBIN 28 pg (25-34); MEAN CORPUSCULAR HGB CONC 33 g/dL (32-36); MEAN CORPUSCULAR VOLUME 86 fL (80-99); MEAN PLATELET VOLUME 10.1 fL (9.0-12.2); MONOCYTES # (AUTO) 0.6 10^3/uL (0.0-1.0); MONOCYTES % (AUTO) 7 % (0-12); NEUTROPHILS # (AUTO) 7.2 10^3/uL (1.8-7.8); NEUTROPHILS % (AUTO) 76 % (42-75); PLATELET COUNT 323 10^3/uL (130-400); WHITE BLOOD COUNT 9.5 10^3/uL (4.3-11.0)
[2020-05-04] MEDS: EPINEPHrine 1 MG INJECTION 4 MG in NS (IVPB) 246 ML IV SCH (03:54)
[2020-05-04 04:01] LABS: CHLORIDE 98 MMOL/L (98-107); POTASSIUM 4.1 MMOL/L (3.6-5.0); SODIUM 133 MMOL/L (135-145)
[2020-05-04 04:02] LABS: CALCIUM 8.5 MG/DL (8.5-10.1); GLUCOSE 140 MG/DL (70-105)
[2020-05-04 04:04] LABS: CARBON DIOXIDE 24 MMOL/L (21-32)
[2020-05-04 04:06] LABS: CREATININE SERUM 0.85 MG/DL (0.60-1.30); GFR ESTIMATED > 60; PHOSPHORUS 3.2 MG/DL (2.3-4.7)
[2020-05-04 04:07] LABS: BUN/CREATININE RATIO 33
[2020-05-04 04:08] LABS: MAGNESIUM 2.1 MG/DL (1.6-2.4)
[2020-05-04] MEDS: dexAMETHasone INJECTION 20 MG in NS (IVPB) 50 ML IV SCH (05:19)
[2020-05-04] MEDS: LEVOTHYROXINE 25 MCG (LEVOTHROID) TAB PO SCH (05:25)
[2020-05-04] MEDS: POTASSIUM CL 10MEQ/50ML IVPB 50 ML IV SCH (06:27)
[2020-05-04] MEDS: MAGNESIUM 1 GM/100 ML IVPB 100 ML IV SCH (06:28)
[2020-05-04] MEDS: KCL 20 MEQ TAB (K-DUR) PO SCH (06:28)
[2020-05-04] MEDS: ADVAIR HFA 115/21 MCG INHALER 8 GM IH SCH ×2 (07:34→19:51)
--- NOTE | 2020-05-04 07:52 | Progress Note - Hospitalist ---
Subjective HPI/CC On Admission Date Seen by Provider: May 04, 2020 Time Seen by Provider: 07:49 Subjective/Events-last exam Pt reports doing well today. About to eat breakfast. No complaints. Coming down on Vapotherm need. Objective Exam Vital Signs Vital Signs Date Time Temp Pulse Resp B/P (MAP) Pulse Ox O2 Delivery O2 Flow Rate FiO2 05/04/20 07:38 94 Vapotherm 20.00 60 05/04/20 06:00 60 20 94/61 (72) 05/04/20 04:00 35.6 Capillary Refill : Less Than 3 Seconds General Appearance: No Apparent Distress, Chronically ill Respiratory: Lungs Clear, No Accessory Muscle Use, Other (on Vapotherm) Cardiovascular: Regular Rate, Rhythm, No Murmur Gastrointestinal: Normal Bowel Sounds, Non Tender, Soft Neurologic/Psychiatric: Alert, Oriented x3, Normal Mood/Affect Results/Procedures Lab Laboratory Tests 05/04/20 02:45 Patient resulted labs reviewed. Assessment/Plan Assessment and Plan Assess & Plan/Chief Complaint COVID-19 with acute hypoxic respiratory failure KEVIN COPD -Oxygen -- Currently on Vapotherm 60% at 25 lpm, will transfer out of the ICU -BiPAP prn at night but has done well with Vapotherm -s/p Remdesivir and 1 unit of convalescent plasma -Daily CMP -Therapeutic dose lovenox due to elevated d-dimer - Decadron to 20mg IV daily - Continue Rocephin and Azithromycin - Attempting proning as able still but difficult due to recent shoulder surgery - IS - Continue Advair CAD hx of CABG NIDDM HX of tobacco use Quit in 2007 Continue home aspirin and statin Continue metoprolol Hypothyroidism Continue home synthroid Recent shoulder surgery Dressing orders per Dr Dominguez Pain control PT/OT GI/DVT ppx -Lovenox and protonix Diagnosis/Problems Diagnosis/Problems (1) CAD (coronary artery disease) Status: Chronic Qualifiers: Coronary Disease-Associated Artery/Lesion type: [place] artery [place] vs. transplanted heart: [place] heart Associated angina: without angina Qualified Codes: I25.10 - Atherosclerotic heart disease of [place] coronary artery without angina pectoris (2) COPD (chronic obstructive pulmonary disease) Status: Chronic Qualifiers: COPD type: COPD with acute lower respiratory infection Qualified Codes: J44.0 - Chronic obstructive pulmonary disease with (acute) lower respiratory infection (3) Acute respiratory failure Status: Acute Qualifiers: Respiratory failure complication: hypoxia Qualified Codes: J96.01 - Acute respiratory failure with hypoxia (4) Hypertension Status: Chronic Qualifiers: Hypertension type: essential hypertension Qualified Codes: I10 - Essential (primary) hypertension (5) HLD (hyperlipidemia) Status: Chronic Qualifiers: Hyperlipidemia type: mixed hyperlipidemia Qualified Codes: E78.2 - Mixed hyperlipidemia (6) Prophylactic measure Status: Acute (7) Respiratory tract infection due to severe acute respiratory syndrome coronavirus 2 (SARS-CoV-2) Status: Acute (8) Pneumonia due to COVID-19 virus Status: Acute Clinical Quality Measures DVT/VTE Risk/Contraindication: Risk Factor Score Per Nursin RFS Level Per Nursing on Admit: 4+=Very High DAJUAN JIMENEZ MD May 04, 2020 07:52
[2020-05-04] MEDS: PANTOPRAZOLE 40 MG (PROTONIX) TAB PO SCH (08:03)
[2020-05-04] MEDS: meTOprolol TARTRATE 25 MG (LOPRESSOR) TABLET PO SCH ×2 (08:03→20:37)
[2020-05-04] MEDS: VITAMIN D3 125 MCG (5,000 UNITS) CAPSULE PO SCH (08:03)
[2020-05-04] MEDS: ASPIRIN 81 MG CHEW (CHILDREN'S ASA) PO SCH (08:03)
[2020-05-04] MEDS ORDERED: dexAMETHasone INJECTION 15 MG in NS (IVPB) 50 ML IV SCH (09:00)
--- NOTE | 2020-05-04 09:38 | NUR ---
REPORT GIVEN TO LORRAINE PAREDES.
--- NOTE | 2020-05-04 10:55 | NUR ---
PT TRANSPORTED TO RM 433 VIA WHEELCHAIR AND ON 10L HIGH-TORSTEN NASAL CANNULA WITH MOUTH AND NOSE COVERED WITH MASK. RAFIQ, RT AT PT SIDE WITH THIS RN PUSHING WHEELCHAIR. PT ARRIVED TO RM 433 IN NO APPARENT DISTRESS, LOVING CATHETER INTACT. CAPO RN IN PT'S ROOM.
--- NOTE | 2020-05-04 11:00 | NUR ---
THIS RN IS TAKING OVER CARE OF PT AT THIS TIME. RN RECEIVED REPORT FROM JONO Ascencio RN IN ICU. PT ON HIGH FLOW AT 10 L AT THIS TIME. RAFIQ FROM RT BROUGHT IN VAPO THERM AND BI PAP IN CASE PT NEEDED IT. PT HAS NO COMPLAINTS AND IS ORIENTED TO ROOM.
[2020-05-04] MEDS: LORATADINE (CLARITIN) 10 MG TAB PO SCH (20:37)
[2020-05-04] MEDS: SERTRALINE 50 MG (ZOLOFT) TABLET PO SCH (20:37)
[2020-05-05 03:53] VITALS: BP 128/60
[2020-05-05] MEDS: ENOXAPARIN 100 MG/1 ML (LOVENOX) SYR SC SCH ×2 (03:53→18:00)
[2020-05-05] MEDS ORDERED: dexAMETHasone INJECTION 15 MG in NS (IVPB) 50 ML IV SCH (06:00)
[2020-05-05 06:38] LABS: CHLORIDE 101 MMOL/L (98-107); POTASSIUM 4.1 MMOL/L (3.6-5.0); SODIUM 137 MMOL/L (135-145)
[2020-05-05 06:39] LABS: CALCIUM 8.7 MG/DL (8.5-10.1)
[2020-05-05 06:40] LABS: GLUCOSE 111 MG/DL (70-105)
[2020-05-05 06:41] LABS: BASOPHILS % (AUTO) 0 % (0-10); CARBON DIOXIDE 26 MMOL/L (21-32); EOSINOPHILS # (AUTO) 0.1 10^3/uL (0.0-0.3); EOSINOPHILS % (AUTO) 1 % (0-10); HEMATOCRIT 38 % (40-54); HEMOGLOBIN 12.4 g/dL (13.3-17.7); LYMPHOCYTES # (AUTO) 1.4 10^3/uL (1.0-4.0); LYMPHOCYTES % (AUTO) 14 % (12-44); MEAN CORPUSCULAR HEMOGLOBIN 28 pg (25-34); MEAN CORPUSCULAR HGB CONC 33 g/dL (32-36); MEAN CORPUSCULAR VOLUME 85 fL (80-99); MEAN PLATELET VOLUME 10.2 fL (9.0-12.2); MONOCYTES # (AUTO) 0.8 10^3/uL (0.0-1.0); MONOCYTES % (AUTO) 8 % (0-12); NEUTROPHILS # (AUTO) 6.9 10^3/uL (1.8-7.8); NEUTROPHILS % (AUTO) 72 % (42-75); PLATELET COUNT 308 10^3/uL (130-400); WHITE BLOOD COUNT 9.6 10^3/uL (4.3-11.0)
[2020-05-05] MEDS: POTASSIUM CL 10MEQ/50ML IVPB 50 ML IV SCH (06:41)
[2020-05-05] MEDS: KCL 20 MEQ TAB (K-DUR) PO SCH (06:41)
[2020-05-05 06:44] LABS: CREATININE SERUM 0.88 MG/DL (0.60-1.30); GFR ESTIMATED > 60
[2020-05-05 06:45] LABS: BUN/CREATININE RATIO 26
[2020-05-05] MEDS: MAGNESIUM 1 GM/100 ML IVPB 100 ML IV SCH (06:47)
[2020-05-05] MEDS: LEVOTHYROXINE 25 MCG (LEVOTHROID) TAB PO SCH (07:17)
[2020-05-05] MEDS: ADVAIR HFA 115/21 MCG INHALER 8 GM IH SCH ×2 (08:26→19:32)
[2020-05-05] MEDS: RT-ALBUTEROL INHALER HFA (VENTOLIN HFA) 18 GM IH SCH ×5 (08:26→21:41)
[2020-05-05 08:50] VITALS: BP 136/67
[2020-05-05] MEDS: ASPIRIN 81 MG CHEW (CHILDREN'S ASA) PO SCH (08:51)
[2020-05-05] MEDS: meTOprolol TARTRATE 25 MG (LOPRESSOR) TABLET PO SCH ×2 (08:51→20:25)
[2020-05-05] MEDS: VITAMIN D3 125 MCG (5,000 UNITS) CAPSULE PO SCH (08:51)
[2020-05-05] MEDS: PANTOPRAZOLE 40 MG (PROTONIX) TAB PO SCH (08:52)
--- NOTE | 2020-05-05 11:25 | Progress Note - Hospitalist ---
Subjective HPI/CC On Admission Date Seen by Provider: May 05, 2020 Time Seen by Provider: 11:10 Subjective/Events-last exam He reports feeling better. His shortness of breath is improving. He has been eating and drinking. He has been up moving around. Objective Exam Vital Signs Vital Signs Date Time Temp Pulse Resp B/P (MAP) Pulse Ox O2 Delivery O2 Flow Rate FiO2 05/05/20 08:50 37.0 76 18 136/67 (90) 95 High Flow N/C 7.00 05/04/20 10:40 50 Capillary Refill : Less Than 3 Seconds General Appearance: No Apparent Distress, Obese Respiratory: Lungs Clear, Normal Breath Sounds, No Respiratory Distress Cardiovascular: Regular Rate, Rhythm, No Edema, No Murmur Gastrointestinal: Normal Bowel Sounds, Non Tender, Soft Extremity: Normal Inspection, Non Tender, No Pedal Edema Neurologic/Psychiatric: Alert, Oriented x3, No Motor/Sensory Deficits, Normal Mood/Affect Skin: Normal Color, Warm/Dry Results/Procedures Lab Laboratory Tests 05/05/20 05:45 Patient resulted labs reviewed. Assessment/Plan Assessment and Plan Assess & Plan/Chief Complaint COVID-19 with acute hypoxic respiratory failure KEVIN COPD Weaning oxygen as able BiPAP prn at night s/p Remdesivir s/p convalescent plasma x1 Therapeutic dose lovenox due to elevated d-dimer Tapering Decadron s/p Rocephin and Azithromycin Attempting proning as able still but difficult due to recent shoulder surgery IS Continue Advair CAD hx of CABG NIDDM HX of tobacco use Quit in 2007 Continue home aspirin and statin Continue metoprolol Hypothyroidism Continue home synthroid Recent shoulder surgery Dressing orders per Dr Dominguez Pain control PT/OT GI/DVT ppx Lovenox and protonix Diagnosis/Problems Diagnosis/Problems (1) Respiratory tract infection due to severe acute respiratory syndrome coronavirus 2 (SARS-CoV-2) Status: Acute (2) Pneumonia due to COVID-19 virus Status: Acute (3) PNA (pneumonia) (4) COPD (chronic obstructive pulmonary disease) Status: Chronic Qualifiers: COPD type: COPD with acute lower respiratory infection Qualified Codes: J44.0 - Chronic obstructive pulmonary disease with (acute) lower respiratory infection Clinical Quality Measures DVT/VTE Risk/Contraindication: Risk Factor Score Per Nursin RFS Level Per Nursing on Admit: 4+=Very High BINU THOMPSON MD May 05, 2020 11:25
--- NOTE | 2020-05-05 12:04 | Physical Therapy Daily Note ---
PT Daily Note-Current Subjective Patient agrees to PT. PT attached extension tubing for O2 to allow patient to be up ad kasia in room and to restroom. Mental Status Patient Orientation: Normal For Age Attachments: Oxygen, [place] Catheter Transfers SCALE: Activities may be completed with or without assistive devices. 2-Jxldpgjlpg-ixlhfoa completes the activity by him/herself with no assistance from a helper. 5-Set-up or Clean-up Assistance-helper sets up or cleans up; patient completes activity. [place] assists only prior to or following the activity. 4-Supervision or Touching Assistance-helper provides verbal cues and/or touching/steadying and/or contact guard assistance as patient completes activity. Assistance may be provided throughout the activity or intermittently. 3-Partial/Moderate Assistance-helper does LESS THAN HALF the effort. [place] lifts, holds or supports trunk or limbs, but provides less than half the effort. 2-Substantial/Maximal Assistance-helper does MORE THAN HALF the effort. [place] l ifts or holds trunk or limbs and provides more than half the effort. 5-Hwztdymsy-vefgiq does ALL the effort. Patient does none of the effort to complete the activity. Or, the assistance of 2 or more helpers is required for the patient to complete the activity. If activity was not attempted, code reason: 7-Patient Refused. 9-Not Applicable-not attempted and the patient did not perform the activity before the current illness, exacerbation or injury. 10-Not Attempted due to Environmental Limitations-(lack of equipment, weather restraints, etc.). 88-Not Attempted due to Medical Conditions or Safety Concerns. Lying to Sitting/Side of Bed(Q: 6 Sit to Stand (QC): 6 Chair/Rtl-jt-Ttqmi Xfer(QC): 6 Gait Training Distance: 175' Walk 10 feet (QC): 6 Walk 50 ft with 2 Turns(QC): 6 Walk 150 ft (QC): 6 Gait Assistive Device: None safe and functional gait sequence/able to negotiate O2 tubing and b[place]ant without difficulty. Assessment Consulted with physician on dismissing patient from therapy services due to patient is safely independent with ambulation and all gross motor skills. RN notified of patient allow to be up ad kasia in room and to toilet. PT Alf Goals Merchant Mariner Goals PT Alf Goals Time Frame: May 07, 2020 Roll Left & Right (QC): 6 Sit to Lying (QC): 6 Lying-Sitting on Side/Bed(QC): 6 Sit to Stand (QC): 6 Chair/Odq-qb-Txnir Xfer(QC): 6 Walk 10 feet (QC): 4 Walk 50ft with 2 Turns (QC): 4 PT Plan Treatment/Plan Treatment Plan: Discontinue PT, goals met Treatment Plan: Bed Mobility, Education, Functional Activity Jossy, Functional Strength, Gait, Safety, Therapeutic Exercise, Transfers Treatment Duration: May 07, 2020 Frequency: 6 times per week Estimated Hrs Per Day: .25 hour per day Patient and/or Family Agrees t: Yes Time/GCodes Time In: 1130 Time Out: 1140 Total Billed Treatment Time: 10 Total Billed Treatment 1 visit FA 10 min AUBREY GRANADOS PT May 05, 2020 12:04
[2020-05-05 12:43] VITALS: BP 127/56
--- NOTE | 2020-05-05 13:22 | Occ Therapy Progress Note ---
Therapy Progress Note Per PT and clinical judgment based on previous sessions, pt is up ad kasia and able to complete daily tasks with increased time. Pt has been educated on pendulum ex and theraband for further UE functional activity tolerance training. OT to d/c on this date based on pt's progress. MARCELA GUAMAN OTR May 05, 2020 13:22
[2020-05-05 16:59] VITALS: BP 106/64
[2020-05-05] MEDS: LORATADINE (CLARITIN) 10 MG TAB PO SCH (20:25)
[2020-05-05] MEDS: SERTRALINE 50 MG (ZOLOFT) TABLET PO SCH (20:25)
[2020-05-05 20:26] VITALS: BP 132/69
[2020-05-05 23:36] VITALS: BP 127/75
[2020-05-06] MEDS: RT-ALBUTEROL INHALER HFA (VENTOLIN HFA) 18 GM IH SCH ×4 (02:27→14:15)
[2020-05-06] MEDS: ENOXAPARIN 100 MG/1 ML (LOVENOX) SYR SC SCH ×2 (03:52→16:01)
[2020-05-06 03:55] VITALS: BP 122/79
[2020-05-06 06:04] LABS: BASOPHILS % (AUTO) 0 % (0-10); EOSINOPHILS % (AUTO) 0 % (0-10); HEMATOCRIT 38 % (40-54); HEMOGLOBIN 12.6 g/dL (13.3-17.7); LYMPHOCYTES # (AUTO) 1.5 10^3/uL (1.0-4.0); LYMPHOCYTES % (AUTO) 15 % (12-44); MEAN CORPUSCULAR HEMOGLOBIN 28 pg (25-34); MEAN CORPUSCULAR HGB CONC 33 g/dL (32-36); MEAN CORPUSCULAR VOLUME 86 fL (80-99); MEAN PLATELET VOLUME 10.2 fL (9.0-12.2); MONOCYTES # (AUTO) 0.9 10^3/uL (0.0-1.0); MONOCYTES % (AUTO) 9 % (0-12); NEUTROPHILS # (AUTO) 7.1 10^3/uL (1.8-7.8); NEUTROPHILS % (AUTO) 70 % (42-75); PLATELET COUNT 309 10^3/uL (130-400); WHITE BLOOD COUNT 10.2 10^3/uL (4.3-11.0)
[2020-05-06] MEDS: LEVOTHYROXINE 25 MCG (LEVOTHROID) TAB PO SCH (06:06)
[2020-05-06 06:18] LABS: CHLORIDE 100 MMOL/L (98-107); POTASSIUM 4.1 MMOL/L (3.6-5.0); SODIUM 137 MMOL/L (135-145)
[2020-05-06 06:19] LABS: CALCIUM 8.8 MG/DL (8.5-10.1); GLUCOSE 137 MG/DL (70-105)
[2020-05-06] MEDS: POTASSIUM CL 10MEQ/50ML IVPB 50 ML IV SCH (06:19)
[2020-05-06] MEDS: KCL 20 MEQ TAB (K-DUR) PO SCH (06:20)
[2020-05-06 06:21] LABS: CARBON DIOXIDE 26 MMOL/L (21-32)
[2020-05-06 06:23] LABS: CREATININE SERUM 0.87 MG/DL (0.60-1.30); GFR ESTIMATED > 60
[2020-05-06 06:24] LABS: BUN/CREATININE RATIO 25
[2020-05-06] MEDS: MAGNESIUM 1 GM/100 ML IVPB 100 ML IV SCH (07:04)
[2020-05-06] MEDS: ADVAIR HFA 115/21 MCG INHALER 8 GM IH SCH (07:13)
[2020-05-06 07:51] VITALS: BP 132/65
[2020-05-06] MEDS: meTOprolol TARTRATE 25 MG (LOPRESSOR) TABLET PO SCH (07:56)
[2020-05-06] MEDS: PANTOPRAZOLE 40 MG (PROTONIX) TAB PO SCH (07:56)
[2020-05-06] MEDS: VITAMIN D3 125 MCG (5,000 UNITS) CAPSULE PO SCH (07:56)
[2020-05-06] MEDS: ASPIRIN 81 MG CHEW (CHILDREN'S ASA) PO SCH (07:56)
[2020-05-06 11:27] VITALS: BP 144/76
[2020-05-06] MEDS ORDERED: APIX5TAB PO (12:49)
--- NOTE | 2020-05-06 14:18 | NUR ---
"RD ASSESSMENT PMHx: COPD; CAD; HTN; TIA; DM; hypercholesterolemia; PT INTERACTION: Note pt is currently in COVID-19 isolation, per chart review. Note all information gathered for nutrition follow-up is per chart review. Note avg PO intake 86% x4d. Note last BM was 05/04, and pt not currently on bowel regimen. ABNORMAL NUTRITION-RELATED LAB VALUES LOW: HIGH: BUN 22; glu 137 Est. kcal needs: 1425 kcal | 15 kcal/kg Est. Pro needs: 76 g Pro | 0.8 g Pro/kg PES STATEMENT: Given current PO intake, no nutrition diagnosis at this time (NO-1.1) INTERVENTION: Continue with current diet order of Regular diet. Pt may benefit from consistent CHO restriction if blood glucose levels become elevated. Will continue to follow and reassess as pt needs, intake, and status change. Yoni Henao, MS RD LD"
--- NOTE | 2020-05-06 14:22 | NUR ---
pt stayed above 90% for the majority of the walk and did not need O2 at this time. Addendum: 05/06/20 at 1422 by KIRK KYLE RT Amended: Links added.
--- NOTE | 2020-05-06 14:29 | NUR ---
PROVIDED EDUCATION TO THE PATIENT ABOUT ELIQUIS. MELECIO CARRANZA PROVIDED THE PATIENT WITH A SAVINGS CARD. I PROVIDED MEDICATION EDUCATION DISCUSSED HOW TO TAKE THE MEDICATION, COMMON SIDE EFFECTS, AND HOW TO HANDLE AN UNCONTROLLED BLEED. I WAS ABLE TO ANSWER ALL OF THIS MEDICATION QUESTIONS.
--- NOTE | 2020-05-06 14:36 | NUR ---
CM FINALIZED DISCHARGE PLAN: Patient is discharging home today self care. He was tested to see if he needed oxygen and he does NOT qualify at this time. Visited with him about not needing oxygen at this time and he was pleasantly surprised. He voiced no concerns about breathing or need for oxygen. He has a new prescription for Eliquis and the free 30 day trial card was printed, this was discussed with Kristian, and placed in his red discharge packet. He voiced understanding. Pharmacist Danis answered all of his medication related questions. He denies any further needs or requests at this time.
== END 2020-05-06 17:00 | disposition home or self-care (01) | DRG 177 ==
LOC: EDUNIT# 09:05 → ER 09:07 → ICU 15:10 → 4TH 05-04 10:55
PROVIDERS: ADMIT Internal Medicine; ATTEND Internal Medicine
PROC: XW033E5 Introduction of Remdesivir Anti-infective into Peripheral Vein, Percutaneous Approach, New Technology Group 5 (ICD-10-PCS; principal; 2020-04-27)
PROC: XW13325 Transfusion of Convalescent Plasma (Nonautologous) into Peripheral Vein, Percutaneous Approach, New Technology Group 5 (ICD-10-PCS; 2020-04-29)
DX: U07.1 COVID-19 (principal); J96.01 Acute respiratory failure with hypoxia; J12.89 Other viral pneumonia; J43.9 Emphysema, unspecified; I25.10 Atherosclerotic heart disease of native coronary artery without angina pectoris; I10 Essential (primary) hypertension; E11.9 Type 2 diabetes mellitus without complications; E78.00 Pure hypercholesterolemia, unspecified; G47.33 Obstructive sleep apnea (adult) (pediatric); M19.041 Primary osteoarthritis, right hand; M19.042 Primary osteoarthritis, left hand; H91.93 Unspecified hearing loss, bilateral; J30.2 Other seasonal allergic rhinitis; Z95.1 Presence of aortocoronary bypass graft; Z98.890 Other specified postprocedural states; Z95.5 Presence of coronary angioplasty implant and graft; Z79.84 Long term (current) use of oral hypoglycemic drugs; Z87.891 Personal history of nicotine dependence; Z86.73 Personal history of transient ischemic attack (TIA), and cerebral infarction without residual deficits; Z97.4 Presence of external hearing-aid
CPT/HCPCS: 36415; 71045; 80048; 80053; 81000; 82805; 82962; 83605; 83735; 84100; 84145; 85007; 85025; 85027; 85379; 85610; 85730; 86141; 86900; 86901; 87040; 87077; 87081; 87088; 87186; 94640; 94660; 94760; 94761; 96365; 96366; 96367; 96372; 96375; 99291

== ENCOUNTER 2020-09-03 11:19 | Outpatient (RCR) | payer MEDICARE, OTHER ==
[~2020-09-03 11:19] MED LIST changes: +APIX5TAB PO; +ATOR10TA66; +ATOR20TA66 PO; +CALC-250 PO; +CELE-63 PO; +CETI10TA49 PO; +HYDR-3820 PO; +LEVO25TA80 PO; -LISI-556 PO; +LISI-729 PO; -LISI10TA2 PO; +LISI10TA25 PO; +LISI40TA9 PO; +OMEG-177 PO; +PANT40TA2 PO; +SERT-413 PO; +TRAM50TA3 PO; +UMEC1BLS IH
[2020-09-12] MEDS ORDERED: CYAN-23 PO (13:20)
[2020-09-12] MEDS ORDERED: METF-865 PO (13:20)
[2020-09-12] MEDS ORDERED: ASPI-1238 PO (13:20)
[2020-09-17] MEDS ORDERED: METR500T PO (10:06)
[2020-09-24] MEDS ORDERED: ACHD5005 PO (13:20)
[2020-09-29] MEDS ORDERED: METR-145 PO (11:41)
[2020-09-29] MEDS ORDERED: ACHD5005 PO (11:41)
[2020-09-29] MEDS ORDERED: TRZ50T PO (11:47)
[2020-09-29] MEDS ORDERED: ONDA4TAB11 PO (11:47)
[2020-10-13] MEDS ORDERED: AMLO-250 PO (08:45)
[2020-10-13] MEDS ORDERED: LOSA100T57 PO (08:45)
[2020-10-13] MEDS ORDERED: HYDR-34 PO (08:45)
[2020-10-13] MEDS ORDERED: POTA10TA6 PO (08:45)
[2020-10-13] MEDS ORDERED: METO50TA15 PO (08:45)
== END 2020-10-16 09:41 | disposition home or self-care (01) ==
PROVIDERS: ATTEND Nurse Practitioner Family
DX: M50.10 Cervical disc disorder with radiculopathy, unspecified cervical region (principal); I11.9 Hypertensive heart disease without heart failure; E11.9 Type 2 diabetes mellitus without complications; J43.9 Emphysema, unspecified; Z96.612 Presence of left artificial shoulder joint

== ENCOUNTER 2020-09-11 16:27 | Inpatient (IN) | payer MEDICARE, OTHER ==
[~2020-09-11] VITALS: Ht 172 cm; Wt 106.6 kg
[~2020-09-11 16:27] MED LIST changes: -ASPI-1238 PO; -CATHETER FLUSH 10 ML SYR IV PRN; -CYAN-23 PO; -HOLD METFORMIN - RECEIVED CONTRAST 20 ML VIAL IV SCH; -IOHEXOL 350 MG/ML 100 ML (OMNIPAQUE 350) VIAL IV ONE; -METF-865 PO
[2020-09-11] MEDS ORDERED: PATIENT MAY USE OWN MEDS, ALL PO SCH (16:45)
[2020-09-11] MEDS ORDERED: fentaNYL INJECTION 100 MCG/2 ML AMP IV PRN (16:45)
[2020-09-11 17:35] VITALS: BP 134/65
[2020-09-11 18:06] LABS: BASOPHILS % (AUTO) 0 % (0-10); EOSINOPHILS # (AUTO) 0.2 10^3/uL (0.0-0.3); EOSINOPHILS % (AUTO) 2 % (0-10); HEMATOCRIT 41 % (40-54); LYMPHOCYTES # (AUTO) 1.8 10^3/uL (1.0-4.0); LYMPHOCYTES % (AUTO) 12 % (12-44); MEAN CORPUSCULAR HEMOGLOBIN 26 pg (25-34); MEAN CORPUSCULAR HGB CONC 32 g/dL (32-36); MEAN CORPUSCULAR VOLUME 81 fL (80-99); MEAN PLATELET VOLUME 9.6 fL (9.0-12.2); MONOCYTES # (AUTO) 1.6 10^3/uL (0.0-1.0); MONOCYTES % (AUTO) 11 % (0-12); NEUTROPHILS # (AUTO) 10.8 10^3/uL (1.8-7.8); NEUTROPHILS % (AUTO) 74 % (42-75); PLATELET COUNT 269 10^3/uL (130-400); WHITE BLOOD COUNT 14.6 10^3/uL (4.3-11.0)
[2020-09-11 18:17] LABS: ALBUMIN 3.9 GM/DL (3.2-4.5); POTASSIUM 4.2 MMOL/L (3.6-5.0)
[2020-09-11 18:18] LABS: CALCIUM 9.1 MG/DL (8.5-10.1)
[2020-09-11 18:19] LABS: TOTAL PROTEIN 8.4 GM/DL (6.4-8.2)
[2020-09-11] MEDS: NS IV 1000 ML 1,000 ML IV SCH (18:19)
[2020-09-11 18:21] LABS: BILIRUBIN,TOTAL 0.5 MG/DL (0.1-1.0)
[2020-09-11 18:23] LABS: CREATININE SERUM 1.26 MG/DL (0.60-1.30)
[2020-09-11 18:29] LABS: LYMPHOCYTES % (MANUAL) 16 %; MONOCYTES % (MANUAL) 5 %; NEUTROPHILS % (MANUAL) 79 %; RBC MORPH NORMAL
[2020-09-11 19:27] VITALS: BP 110/60
--- NOTE | 2020-09-11 20:09 | CONSULTATION REPORT ---
DATE OF SERVICE: ADMITTING PRIMARY CARE PHYSICIAN: Petra Ayala DO HISTORY OF PRESENT ILLNESS: The patient is a 64-year-old male who presented to his physician's office due to lower crampy abdominal pain on an intermittent basis for the past two days. He states that he has not had this before in the past. He also does report that he has developed some looser stools and has had probably approximately 5 bowel movements a day. He does not report any red blood per rectum nor any dark tarry stools. He states that he is otherwise eating well and does not have any upper gastrointestinal issues. A CT scan was performed, which did show a significant amount of inflammation of the cecum of colon. The radiologist's interpretation also could not rule out appendicitis as well as an intraluminal colonic lesion as well. He states that he did have a colonoscopy approximately 2 years ago and does not remember any significant abnormalities. Upon examination, he does have some pain in the suprapubic region as well as right lower abdominal quadrant. Based on the CT scan findings, if this was an appendicitis this was likely a perforated at some point and somewhat walled off. This gentleman also did have complications related to coronavirus-19 in 04/2020 and was in the hospital for 14 days. He also does have underlying peripheral vascular disease and coronary artery disease and with this along with the hypercoagulable state associated with coronavirus in latent phases, we feel that the most likely diagnosis of inflammation is ischemic colitis. Our recommendation especially in lieu of his history of COPD as well as coronavirus-19 is to avoid surgery if possible. We will proceed with bowel rest with a clear liquid diet as well as antibiotics and IV hydration as well as adequate pain control. PAST MEDICAL HISTORY: Hypertension, hypercholesterolemia, coronary artery disease, COPD, degenerative joint disease, gastroesophageal reflux disease. PAST SURGICAL HISTORY: Bilateral shoulder surgery, bilateral inguinal hernia. ALLERGIES: PENICILLIN. MEDICATIONS: Albuterol 1 puff q.4 hours p.r.n., apixaban 5 mg b.i.d., aspirin 81 mg daily, atorvastatin 20 mg daily, Celecoxib 200 mg daily, cetirizine 10 mg daily, hydrocodone p.r.n., levothyroxine 25 mcg daily, lisinopril 40 mg daily, metoprolol 25 mg daily, Protonix 40 mg daily, sertraline 50 mg daily, tramadol 50 mg p.r.n. SOCIAL HISTORY: Previous smoker, 40 pack years; quit approximately one year ago. Negative alcohol. FAMILY HISTORY: Sister with breast and ovarian cancer. Father with some form of glioma. VITAL SIGNS: Temperature 36.8, blood pressure 110/60, pulse 76, respirations 18, pulse ox 93% on room air. REVIEW OF SYSTEMS: Well-nourished male currently in no acute distress. He is not experiencing any shortness of breath or difficulty breathing. No chest pain, palpitations, diaphoresis. No nausea, vomiting with intermittent episodes of diarrhea as well as pain in the suprapubic region as well as the right lower abdominal quadrant. He is having loose stools. No red blood per rectum nor any dark tarry stools. No fever, chills, no recent inadvertent weight loss. All other review of systems negative. PHYSICAL EXAMINATION: CHEST: Distant breath sounds and scattered wheezes bilaterally. HEART: Regular, no murmurs. EXTREMITIES: No lower extremity edema, negative Homans sign. HEENT: No scleral icterus. NECK: No cervical lymphadenopathy. ABDOMEN: Soft, nondistended. There is pain in the suprapubic region as well as right lower abdominal quadrant with voluntary guarding, no rebound. No hernias. SKIN: Warm, dry. LABORATORY DATA: WBC 14.6, hemoglobin 13.0, hematocrit 41, platelets 269, BUN 25, creatinine 1.26. ASSESSMENT AND PLAN: A 64-year-old male with inflammation of the right lower abdominal quadrant encompassing the cecum and appendix. The differential diagnosis is broad; however, we feel that this is most likely secondary to an ischemic colitis and we will recommend initial medical management with pain control, IV fluids, bowel rest as well as IV antibiotics and serial examinations. We feel that in lieu of his recent coronavirus-19 infection as well as hypercoagulable states and the latency period of this disease process as well as his underlying coronary artery and peripheral vascular disease, this is the most likely etiology of his diagnosis. Job ID: [id number] DocumentID: [id number] Dictated Date: 09/11/2020 19:40:13 Spray Rig Operator Date: 09/11/2020 20:08:52 Dictated By: KASHIF GARCIAS MD
[2020-09-11] MEDS: fentaNYL INJECTION 100 MCG/2 ML AMP IVP PRN ×2 (20:28→22:03)
[2020-09-11] MEDS: CEFEPIME INJECTION 2,000 MG in WATER (STERILE) FOR INJECTION 20 ML IV SCH (20:29)
[2020-09-11] MEDS: metroNIDAZOLE 500MG/100ML IVPB 100 ML IV SCH (21:32)
[2020-09-11] MEDS: HYDROcodone/APAP 7.5 MG/325 MG (LORTAB, LORCET PLUS) TABLET PO PRN (21:32)
[2020-09-11 23:48] VITALS: BP 115/57
[2020-09-12 03:54] VITALS: BP 119/59
[2020-09-12 04:38] LABS: HEMOGLOBIN 11.8 g/dL (13.3-17.7); MEAN PLATELET VOLUME 9.6 fL (9.0-12.2); WHITE BLOOD COUNT 11.7 10^3/uL (4.3-11.0)
[2020-09-12 04:53] LABS: CHLORIDE 103 MMOL/L (98-107); SODIUM 133 MMOL/L (135-145)
[2020-09-12 04:54] LABS: CALCIUM 8.6 MG/DL (8.5-10.1); GLUCOSE 141 MG/DL (70-105)
[2020-09-12 04:56] LABS: CARBON DIOXIDE 20 MMOL/L (21-32)
[2020-09-12 04:58] LABS: CREATININE SERUM 1.07 MG/DL (0.60-1.30); GFR ESTIMATED > 60
[2020-09-12 04:59] LABS: BUN/CREATININE RATIO 19
[2020-09-12] MEDS: NS IV 1000 ML 1,000 ML IV SCH ×3 (05:10→23:54)
[2020-09-12] MEDS: HYDROcodone/APAP 7.5 MG/325 MG (LORTAB, LORCET PLUS) TABLET PO PRN ×3 (05:11→21:05)
[2020-09-12] MEDS: fentaNYL INJECTION 100 MCG/2 ML AMP IVP PRN (05:11)
[2020-09-12] MEDS: metroNIDAZOLE 500MG/100ML IVPB 100 ML IV SCH ×3 (05:11→21:05)
[2020-09-12 08:00] VITALS: BP 108/69
[2020-09-12] MEDS: CEFEPIME INJECTION 2,000 MG in WATER (STERILE) FOR INJECTION 20 ML IV SCH ×2 (08:25→21:06)
[2020-09-12] MEDS: PANTOPRAZOLE 40 MG (PROTONIX) VIAL IV SCH (08:25)
[2020-09-12] MEDS ORDERED: RT-ALBUTEROL INHALER HFA (VENTOLIN HFA) 18 GM IH PRN ×2 (10:45→20:15)
--- NOTE | 2020-09-12 10:49 | History & Physical ---
History of Present Illness History of Present Illness Reason for visit/HPI This is a 64 year old male with a history of CAD, COPD and COVID requiring prolonged hospitalization in April 2020 who presented to my office with sudden onset of severe lower abdominal pain and cramping. He also reported diarrhea. He was sent for stat CT scan of the abdomen and pe pelvis which showed inflammation in the RLQ and LLQ as well as possible nodularity of the liver. He will be admitted for diverticulitis/colitis and rule out appendicitis with gut rest, IVFs, IV antibiotics, IV pain control and surgical consultation. Date of Admission Sep 11, 2020 at 17:28 Date Seen by a Provider: Sep 12, 2020 Time Seen by a Provider: 10:47 I consulted on this patient on 09/12/20 10:44 Attending Physician Petra Ruvalcaba DO Admitting Physician Petra Ruvalcaba DO Consult Allergies and Home Medications Allergies Coded Allergies: Penicillins (Verified Allergy, Mild, 04/19/18) Home Medications Albuterol Sulfate 1 Puff Puff, 2 PUFF IH Q4H PRN for SHORTNESS OF BREATH, (Reported) Apixaban 5 Mg Tablet, 5 MG PO BID Prescribed by: BINU THOMPSON on 05/06/20 1249 Aspirin 81 Mg Tab.chew, 81 MG PO DAILY, (Reported) Atorvastatin Calcium 20 Mg Tablet, 10 MG PO DAILY, (Reported) TAKES 1/2 OF A 20MG TAB Celecoxib 200 Mg Capsule, 200 MG PO DAILY, (Reported) Cetirizine HCl 10 Mg Tablet, 10 MG PO HS, (Reported) Cholecalciferol (Vitamin D3) 125 Mcg Tablet, 125 MCG PO DAILY, (Reported) Hydrocodone/Acetaminophen 1 Each Tablet, 1 EA PO Q4H PRN for PAIN-MODERATE (5- 7), (Reported) Levothyroxine Sodium 25 Mcg Tablet, 25 MCG PO DAILY, (Reported) Lisinopril 40 Mg Tablet, 40 MG PO DAILY, (Reported) Metoprolol Tartrate 25 Mg Tablet, 25 MG PO BID, (Reported) [place]-3S/Dha/Epa/Fish Oil 1 Each Capsule, 1 EACH PO BID, (Reported) Pantoprazole Sodium 40 Mg Tablet.dr, 40 MG PO DAILY PRN for HEARTBURN, (Re ported) Sertraline HCl 50 Mg Tablet, 50 MG PO HS, (Reported) Tramadol HCl 50 Mg Tablet, 50-100 MG PO Q6H PRN for PAIN-MODERATE (5-7), (Reported) Umeclidinium Brm/Vilanterol Tr 1 Each Blst.w.dev, 1 EACH IH DAILY, (Reported) Patient Home Medication List Home Medication List Reviewed: Yes Past Ofbkark-Kwibwt-Upyije Hx Past Med/Social Hx: Reviewed Nursing Past Med/Soc Hx Patient Social History Marrital Status: Former Smoker, Quit: Jul 11, 2008 Type Used: Cigarettes Recent Foreign Travel: No Contact w/other who traveled: No Recent Hopitalizations: No Immunizations Up To Date Date of Pneumonia Vaccine: May 10, 2016 Date of Influenza Vaccine: Apr 24, 2020 Seasonal Allergies Seasonal Allergies: Yes Past Medical History Surgeries: CABG, Coronary Stent Currently Using CPAP: Yes Cardiac: Coronary Artery Disease, Heart Attack, High Cholesterol, Hypertension Neurological: TIA Reproductive: No Sexually Transmitted Disease: No HIV/AIDS: No Musculoskeletal: Arthritis Endocrine: Diabetes, Non-Insulin dep Loss of Vision: Bilateral Hearing Impairment: Hard of Hearing, Bilateral Hearing Aide History of Blood Disorders: No Adverse Reaction to Blood Vee: No (N/A) Family History No Pertinent Family Hx Review of Systems Constitutional: weakness EENTM: No see HPI, No no symptoms reported, No ear discharge, No hearing loss, No ear pain, No blurred vision, No double vision, No eye pain, No tearing, No vision loss, No dental problems, No hoarseness, No mouth pain, No mouth swelling, No epistaxis, No nose congestion, No nose pain, No throat pain, No throat swelling, No other Respiratory: dyspnea on exertion Cardiovascular: No no symptoms reported, No see HPI, No chest pain, No edema, No Hx of Intervention, No palpitations, No syncope, No vascular heart diseas, No other Gastrointestinal: RLQ, LLQ, abdominal pain (LLQ), diarrhea, loss of appetite Genitourinary: No no symptoms reported, No see HPI, No decreased output, No discharge, No dysuria, No frequency, No hematuria, No hesitancy, No incontinence, No nocturia, No pain, No other Musculoskeletal: back pain Skin: No no symptoms reported, No see HPI, No change in color, No change in hair/nails, No dryness, No hx of skin cancer, No lesions, No lumps, No pruritus, No rash, No other Psychiatric/Neurological: Numbness (left arm), Weakness Physical Exam Vital Signs Vital Signs - First Documented 09/11/20 17:35 Temp 36.6 Pulse 80 Resp 18 B/P (MAP) 134/65 (88) Pulse Ox 97 O2 Delivery Room Air Capillary Refill : Height, Weight, BMI Height: 5'8.00" Weight: 238lbs. 5.0oz. 107.065877at; 34.81 BMI Method:Stated General Appearance: No Apparent Distress HEENT: Normal ENT Inspection Neck: Supple Respiratory: Lungs Clear Cardiovascular: Regular Rate, Rhythm, Systolic Murmur Gastrointestinal: Normal Bowel Sounds, Soft, Tenderness (LLQ and RLQ) Back: No CVA Tenderness Extremity: Non Tender, No Calf Tenderness, No Pedal Edema Neurologic/Psychiatric: Alert, Oriented x3 Skin: Warm/Dry Comments Laboratory Tests 09/11/20 17:55: White Blood Count 14.6H, Red Blood Count 5.10, Hemoglobin 13.0L, Hematocrit 41, Mean Corpuscular Volume 81, Mean Corpuscular Hemoglobin 26, Mean Corpuscular Hemoglobin Concent 32, Red Cell Distribution Width 14.0, Platelet Count 269, Mean Platelet Volume 9.6, Immature Granulocyte % (Auto) 1, Neutrophils (%) (Auto) 74, Lymphocytes (%) (Auto) 12, Monocytes (%) (Auto) 11, Eosinophils (%) (Auto) 2, Basophils (%) (Auto) 0, Neutrophils # (Auto) 10.8H, Lymphocytes # (Auto) 1.8, Monocytes # (Auto) 1.6H, Eosinophils # (Auto) 0.2, Basophils # (Auto) 0.0, Immature Granulocyte # (Auto) 0.1, Neutrophils % (Manual) 79, Lymphocytes % (Manual) 16, Monocytes % (Manual) 5, Blood Morphology Comment NORMAL, Erythrocyte Sedimentation Rate [Pending], Sodium Level 135, Potassium Level 4.2, Chloride Level 102, Carbon Dioxide Level 20L, Anion Gap 13, Blood Urea Nitrogen 25H, Creatinine 1.26, Estimat Glomerular Filtration Rate 57, BUN/Creatinine Ratio 20, Glucose Level 130H, Calcium Level 9.1, Corrected Calcium 9.2, Total Bilirubin 0.5, Aspartate Amino Transf (AST/SGOT) 14, Alanine Aminotransferase (ALT/SGPT) 27, Alkaline Phosphatase 94, C-Reactive Protein High Sensitivity 8.78H, Total Protein 8.4H, Albumin 3.9, Amylase Level 66, Lipase 52 09/12/20 04:25: White Blood Count 11.7H, Red Blood Count 4.67, Hemoglobin 11.8L, Hematocrit 38L, Mean Corpuscular Volume 81, Mean Corpuscular Hemoglobin 25, Mean Corpuscular Hemoglobin Concent 31L, Red Cell Distribution Width 14.2, Platelet Count 211, Mean Platelet Volume 9.6, Sodium Level 133L, Potassium Level 4.0, Chloride Level 103, Carbon Dioxide Level 20L, Anion Gap 10, Blood Urea Nitrogen 20H, Creatinine 1.07, Estimat Glomerular Filtration Rate > 60, BUN/Creatinine Ratio 19, Glucose Level 141H, Calcium Level 8.6 Assessment/Plan Assessment and Plan 1. Acute Diverticulitis/Colitis--admit for IVFs, gut rest, IV antibiotics, IV pain control, surgical consult, lovenox for DVT prophylaxis 2. Hepatomegaly with nodularity--discussed further workup once over this acute episode 3. Hypertension--BP currently stable with no meds 4. COPD--resume inhalers 5. History of CAD--stable Admission Diagnosis Admission Status: Inpatient Order (span 2 midnights) Reason for Inpatient Admission: Will require gut rest, IV antibiotics, IV pain control, surgical consult PETRA RUVALCABA DO Sep 12, 2020 10:49
--- NOTE | 2020-09-12 11:32 | Progress Note ---
Subjective Date Seen by a Provider: Sep 12, 2020 Time Seen by a Provider: 10:00 Subjective/Events-last exam doing better today. pain better controlled. no fever/chills. no episode diarrhea last night or this morning. Objective Exam Vital Signs Date Time Temp Pulse Resp B/P (MAP) Pulse Ox O2 Delivery O2 Flow Rate FiO2 09/12/20 08:00 36.4 81 18 108/69 (82) 93 Room Air 09/12/20 08:00 Room Air 09/12/20 03:54 36.9 82 18 119/59 (79) 93 Room Air 09/11/20 23:48 36.9 78 18 115/57 (76) 92 Room Air 09/11/20 20:30 Room Air 09/11/20 19:27 36.8 76 18 110/60 (77) 93 Room Air 09/11/20 17:40 Room Air 09/11/20 17:35 36.6 80 18 134/65 (88) 97 Room Air I & O 09/12/20 07:00 Intake Total 950 ml Output Total 300 ml Balance 650 ml Capillary Refill : General Appearance: No Apparent Distress HEENT: PERRL/EOMI Neck: Full Range of Motion Respiratory: Chest Non Tender, Lungs Clear, Normal Breath Sounds Cardiovascular: Regular Rate, Rhythm Gastrointestinal: normal bowel sounds, soft, tenderness Extremity: Normal Capillary Refill Neurologic/Psychiatric: Alert, Oriented x3 Skin: Normal Color Results Lab Laboratory Tests 09/11/20 17:55: White Blood Count 14.6H, Red Blood Count 5.10, Hemoglobin 13.0L, Hematocrit 41, Mean Corpuscular Volume 81, Mean Corpuscular Hemoglobin 26, Mean Corpuscular Hemoglobin Concent 32, Red Cell Distribution Width 14.0, Platelet Count 269, Mean Platelet Volume 9.6, Immature Granulocyte % (Auto) 1, Neutrophils (%) (Auto) 74, Lymphocytes (%) (Auto) 12, Monocytes (%) (Auto) 11, Eosinophils (%) (Auto) 2, Basophils (%) (Auto) 0, Neutrophils # (Auto) 10.8H, Lymphocytes # (Auto) 1.8, Monocytes # (Auto) 1.6H, Eosinophils # (Auto) 0.2, Basophils # (Auto) 0.0, Immature Granulocyte # (Auto) 0.1, Neutrophils % (Manual) 79, Lymphocytes % (Manual) 16, Monocytes % (Manual) 5, Blood Morphology Comment NORMAL, Sodium Level 135, Potassium Level 4.2, Chloride Level 102, Carbon Dioxide Level 20L, Anion Gap 13, Blood Urea Nitrogen 25H, Creatinine 1.26, Estimat Glomerular Filtration Rate 57, BUN/Creatinine Ratio 20, Glucose Level 130H, Calcium Level 9.1, Corrected Calcium 9.2, Total Bilirubin 0.5, Aspartate Amino Transf (AST/SGOT) 14, Alanine Aminotransferase (ALT/SGPT) 27, Alkaline Phosphatase 94, C-Reactive Protein High Sensitivity 8.78H, Total Protein 8.4H, Albumin 3.9, Amylase Level 66, Lipase 52 09/12/20 04:25: White Blood Count 11.7H, Red Blood Count 4.67, Hemoglobin 11.8L, Hematocrit 38L, Mean Corpuscular Volume 81, Mean Corpuscular Hemoglobin 25, Mean Corpuscular Hemoglobin Concent 31L, Red Cell Distribution Width 14.2, Platelet Count 211, Mean Platelet Volume 9.6, Sodium Level 133L, Potassium Level 4.0, Chloride Level 103, Carbon Dioxide Level 20L, Anion Gap 10, Blood Urea Nitrogen 20H, Creatinine 1.07, Estimat Glomerular Filtration Rate > 60, BUN/Creatinine Ratio 19, Glucose Level 141H, Calcium Level 8.6 Assessment/Plan Assessment/Plan Assess & Plan/Chief Complaint ischemic colitis. conservative management IV hydration and abx. cont clears for now. if continues to improve tomorrow will advance. pain control KASHIF TURNER MD Sep 12, 2020 11:32
[2020-09-12] MEDS: ENOXAPARIN 40 MG/0.4 ML (LOVENOX) SYR SC SCH (11:36)
[2020-09-12 12:00] VITALS: BP 139/70
[2020-09-12] MEDS ORDERED: ASPI-1238 PO (13:20)
[2020-09-12] MEDS ORDERED: METF-865 PO (13:20)
[2020-09-12] MEDS ORDERED: CYAN-23 PO (13:20)
[2020-09-12 14:55] LABS: ERYTHROCYTE SEDIMENTATION RATE 64 MM/HR (0-30)
[2020-09-12 15:44] VITALS: BP 102/66
[2020-09-12 19:14] VITALS: BP 132/64
[2020-09-13 00:12] VITALS: BP 130/65
[2020-09-13] MEDS: ONDANSETRON 4 MG/2 ML (SDV) Z0FRAN IV PRN ×2 (03:31→08:04)
[2020-09-13] MEDS: fentaNYL INJECTION 100 MCG/2 ML AMP IVP PRN ×2 (03:31→09:48)
[2020-09-13] MEDS: NS IV 1000 ML 1,000 ML IV SCH ×3 (03:31→17:31)
[2020-09-13 03:50] VITALS: BP 117/63
[2020-09-13] MEDS: LEVOTHYROXINE 25 MCG (LEVOTHROID) TAB PO SCH (05:56)
[2020-09-13] MEDS: metroNIDAZOLE 500MG/100ML IVPB 100 ML IV SCH ×3 (05:56→21:27)
[2020-09-13 06:28] LABS: HEMOGLOBIN 12.7 g/dL (13.3-17.7); MEAN PLATELET VOLUME 10.2 fL (9.0-12.2); WHITE BLOOD COUNT 11.8 10^3/uL (4.3-11.0)
[2020-09-13 06:36] LABS: CHLORIDE 104 MMOL/L (98-107); POTASSIUM 4.2 MMOL/L (3.6-5.0); SODIUM 134 MMOL/L (135-145)
[2020-09-13 06:37] LABS: CALCIUM 8.9 MG/DL (8.5-10.1); GLUCOSE 151 MG/DL (70-105)
[2020-09-13 06:39] LABS: CARBON DIOXIDE 18 MMOL/L (21-32)
[2020-09-13 06:41] LABS: CREATININE SERUM 1.09 MG/DL (0.60-1.30); GFR ESTIMATED > 60
[2020-09-13 06:42] LABS: BUN/CREATININE RATIO 12
[2020-09-13 07:38] VITALS: BP 114/80
[2020-09-13] MEDS: CEFEPIME INJECTION 2,000 MG in WATER (STERILE) FOR INJECTION 20 ML IV SCH (08:04)
[2020-09-13] MEDS: PANTOPRAZOLE 40 MG (PROTONIX) VIAL IV SCH (08:05)
[2020-09-13] MEDS ORDERED: PROMETHAZINE INJ 25 MG/ML (PHENERGAN) AMP IVP STA (09:21)
--- NOTE | 2020-09-13 09:30 | Progress Note ---
Subjective Subjective Date Seen by Provider: Sep 13, 2020 Time Seen by Provider: 09:00 PT IS A 64 Y/O MALE WHO IS A CLINIC PATIENT OF DR. 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 HE PRESENTED TO THE HOSPITAL WITH ABDOMINAL PAIN, NAUSEA, HAD CT SCAN WHICH SHOWED POSSIBLE APPENDICITIS AND SIGMOID DIVERTICULITIS. PT REPORTS THAT HE HAD CLEAR LIQUIDS THIS AND HAS HAD NAUSEA AND EMESIS SINCE THAT TIME. HE REPORTS SIGNIFICANT ABDOMINAL PAIN ON THE RIGHT. HE REPORTS NAUSEA EVERY TIME THAT HE SITS UP TO URINATE. Objective Exam Vital Signs Vital Signs - First Documented 09/11/20 09/13/20 17:35 00:12 Temp 36.6 Pulse 80 Resp 18 B/P (MAP) 134/65 (88) Pulse Ox 97 O2 Delivery Room Air O2 Flow Rate 2.00 Capillary Refill : General Appearance: WD/WN, Mild Distress (DUE TO NAUSEA AND PAIN) HEENT: PERRL/EOMI, Pharynx Normal Neck: Full Range of Motion, Supple Respiratory: Chest Non Tender, Lungs Clear, Normal Breath Sounds, No Accessory Muscle Use, No Respiratory Distress Cardiovascular: Regular Rate, Rhythm Gastrointestinal: Soft, Abnormal Bowel Sounds (DECREASED BOWEL SOUNDS), Tenderness (LLQ and RLQ, TENDER TO PERCUSSION AND PALPATION) Rectal: Deferred Back: No CVA Tenderness Extremity: Normal Capillary Refill, Normal Range of Motion, Non Tender, No Calf Tenderness Neurologic/Psychiatric: Alert, Oriented x3, Normal Mood/Affect, recreational sports director II-XII Norm as Tested Skin: Normal Color, Diaphoresis Results Lab Laboratory Tests 09/13/20 05:49: White Blood Count 11.8H, Red Blood Count 5.10, Hemoglobin 12.7L, Hematocrit 41, Mean Corpuscular Volume 80, Mean Corpuscular Hemoglobin 25, Mean Corpuscular Hemoglobin Concent 31L, Red Cell Distribution Width 13.9, Platelet Count 235, Mean Platelet Volume 10.2, Sodium Level 134L, Potassium Level 4.2, Chloride Level 104, Carbon Dioxide Level 18L, Anion Gap 12, Blood Urea Nitrogen 13, Creatinine 1.09, Estimat Glomerular Filtration Rate > 60, BUN/Creatinine Ratio 12, Glucose Level 151H, Calcium Level 8.9 Assessment/Plan Assessment/Plan Admission Dx RIGHT LOWER QUADRANT ABDOMINAL PAIN DIVERTICULITIS SIGMOID COLON NAUSEA EMESIS ELEVATED CRP, ESR LEUKOCYTOSIS MILD HYPONATREMIA Admission Status: Inpatient Order (span 2 midnights) Assessment and Plan RIGHT LOWER QUADRANT ABDOMINAL PAIN DIVERTICULITIS SIGMOID COLON NAUSEA EMESIS ELEVATED CRP, ESR LEUKOCYTOSIS MILD HYPONATREMIA RIGHT LOWER QUADRANT ABDOMINAL PAIN WITH DIVERTICULITIS SIGMOID COLON -CT OF ABDOMEN AND PELVIS FOLLOWS: There are surgical changes in the left upper quadrant with mild dilatation of gas distended distal esophagus. There is mild low-density in the liver parenchyma which is likely due to steatosis. There is mild nodularity along the serosal surface of the right lobe of the liver. This is somewhat atypical and could be related to cirrhosis. No definite gallbladder, pancreatic, splenic or adrenal gland abnormality is identified. Kidneys are also unremarkable in appearance. There is moderate aortoiliac atherosclerotic calcification. There is extensive mural thickening of what appears to be the terminal ileum and cecum. This demonstrates mild surrounding edema and/or inflammation. The appendix is difficult to isolate visually but may be inflamed as well with extension medially into the mesentery. There is mild edema and/or inflammation surrounding the sigmoid colon in the left lower quadrant which may contribute to patient's symptoms. Surgical clips are seen in this region. Partially opacified urinary bladder is somewhat displaced toward the right but otherwise unremarkable. IMPRESSION: Extensive mural thickening with edema and inflammation in the right lower quadrant. This could be inflammatory in nature secondary to either inflammatory bowel disease or acute appendicitis. Given the overall appearance, neoplasm cannot be fully excluded and endoscopic follow-up after treatment for possible infection would be of value. In addition there is edema and/or inflammation adjacent to the sigmoid colon which may be on the basis of acute diverticulitis. - PT IS ON FLAGYL 500MG IV TID, AND CEFEPIME, MONITOR SYMPTOMS, - DISCUSSED WITH DR. GARCIAS - PT FAILED THE CLEAR LIQUID CHALLENGE GIVEN TO HIM WITH INCREASE IN RIGHT LOWER QUADRANT ABDOMINAL PAIN- WILL MONITOR SYMPTOMS AND DR. GARCIAS WILL RE-EVAL THE PATIENT THIS MORNING IN CASE SURGERY IS INDICATED ON THE PATIENT TODAY OR TOMORROW. NAUSEA WITH EMESIS - PT ON ZOFRAN - WILL ADD PROMETHAZINE IV FOR IMPROVED CONTROL OF NAUSEA/EMESIS. ELEVATED CRP, ESR - REPEAT LABS - PT ON ANTIBIOTICS LEUKOCYTOSIS - SLIGHTLY IMPROVED FROM ADMISSION, ON IV ANTIBIOTICS, WILL MONTOR LABS TOMORROW MILD HYPONATREMIA - CONTINUE WITH IV FLUIDS NORMAL SALINE AT 125ML/HR - REPEAT LABS IN MORNING. PT ON LOVENOX FOR DVT PROPHYLAXIS GI PROPHYLAXIS WITH PROTONIX IV. DISCUSSED CT FINDINGS WITH PT - WITH HIS ON PHONE. WILL CHANGE FROM OBSERVATION TO INPATIENT STATUS. GERTRUDE KUHN MD Sep 13, 2020 09:30
[2020-09-13] MEDS: ENOXAPARIN 40 MG/0.4 ML (LOVENOX) SYR SC SCH ×2 (11:16→11:18)
[2020-09-13 11:17] VITALS: BP 144/88
--- NOTE | 2020-09-13 11:27 | Progress Note ---
Subjective Date Seen by a Provider: Sep 13, 2020 Time Seen by a Provider: 10:30 Subjective/Events-last exam developed nausea and vomiting this morning. no bowel movement for past few days. pain RLQ. no fever/chills. wbc unchanged. Objective Exam Vital Signs Date Time Temp Pulse Resp B/P (MAP) Pulse Ox O2 Delivery O2 Flow Rate FiO2 09/13/20 11:17 37.4 71 18 144/88 (106) 92 Room Air 09/13/20 08:00 Room Air 09/13/20 07:38 36.4 76 16 114/80 (91) 94 Room Air 09/13/20 03:50 36.6 76 18 117/63 (81) 93 Nasal Cannula 2.00 09/13/20 00:12 37.5 86 18 130/65 (86) 92 Nasal Cannula 2.00 09/12/20 23:05 94 Room Air 09/12/20 19:51 Room Air 09/12/20 19:14 37.4 80 20 132/64 (86) 90 Room Air 09/12/20 15:44 36.8 77 18 102/66 (78) 91 Room Air 09/12/20 14:37 93 Room Air 09/12/20 12:00 37.6 90 18 139/70 (93) 96 Room Air I & O 09/13/20 07:00 Intake Total 1475 ml Output Total 2930 ml Balance -1455 ml Capillary Refill : General Appearance: No Apparent Distress HEENT: PERRL/EOMI Neck: Full Range of Motion Respiratory: Chest Non Tender, Decreased Breath Sounds Cardiovascular: Regular Rate, Rhythm Gastrointestinal: soft, distended, tenderness Extremity: Normal Capillary Refill Neurologic/Psychiatric: Alert, Oriented x3 Skin: Normal Color Lymphatic: No Adenopathy Results Lab Laboratory Tests 09/13/20 05:49: White Blood Count 11.8H, Red Blood Count 5.10, Hemoglobin 12.7L, Hematocrit 41, Mean Corpuscular Volume 80, Mean Corpuscular Hemoglobin 25, Mean Corpuscular Hemoglobin Concent 31L, Red Cell Distribution Width 13.9, Platelet Count 235, Mean Platelet Volume 10.2, Sodium Level 134L, Potassium Level 4.2, Chloride Level 104, Carbon Dioxide Level 18L, Anion Gap 12, Blood Urea Nitrogen 13, Creatinine 1.09, Estimat Glomerular Filtration Rate > 60, BUN/Creatinine Ratio 12, Glucose Level 151H, Calcium Level 8.9, C-Reactive Protein High Sensitivity 14.50H Assessment/Plan Assessment/Plan Assess & Plan/Chief Complaint ischemic colitis/right lower quadrant inflammatory phlegmon. conservative management. change abx. CT abd and pelvis in am to see if developing abscess/change KASHIF GARCIAS MD Sep 13, 2020 11:27
[2020-09-13] MEDS ORDERED: PIPERACILLIN/TAZOBACTAM (BULK) 4.5 GM in NS (IVPB) 100 ML IV NR (12:00)
[2020-09-13 15:59] VITALS: BP 137/82
[2020-09-13] MEDS: PIPERACILLIN/TAZOBACTAM (BULK) 4.5 GM in NS (IVPB) 100 ML IV SCH (17:31)
[2020-09-13] MEDS: PROMETHAZINE INJ 25 MG/ML (PHENERGAN) AMP IVP PRN (17:32)
[2020-09-13 19:32] VITALS: BP 166/87
[2020-09-14] VITALS (7 sets, daily range): BP systolic 133–162; BP diastolic 66–89
[2020-09-14] MEDS: PIPERACILLIN/TAZOBACTAM (BULK) 4.5 GM in NS (IVPB) 100 ML IV SCH ×3 (01:28→17:29)
[2020-09-14] MEDS: NS IV 1000 ML 1,000 ML IV SCH ×3 (01:28→16:23)
[2020-09-14 05:02] LABS: HEMOGLOBIN 12.8 g/dL (13.3-17.7); MEAN PLATELET VOLUME 9.7 fL (9.0-12.2); WHITE BLOOD COUNT 11.2 10^3/uL (4.3-11.0)
[2020-09-14 05:26] LABS: ALBUMIN 3.4 GM/DL (3.2-4.5); CHLORIDE 107 MMOL/L (98-107); POTASSIUM 4.1 MMOL/L (3.6-5.0); SODIUM 137 MMOL/L (135-145)
[2020-09-14 05:28] LABS: CALCIUM 9.3 MG/DL (8.5-10.1)
[2020-09-14 05:29] LABS: GLUCOSE 169 MG/DL (70-105); TOTAL PROTEIN 7.6 GM/DL (6.4-8.2)
[2020-09-14 05:30] LABS: CARBON DIOXIDE 16 MMOL/L (21-32)
[2020-09-14 05:31] LABS: BILIRUBIN,TOTAL 0.6 MG/DL (0.1-1.0)
[2020-09-14 05:32] LABS: ALKALINE PHOSPHATASE 79 U/L (40-136); CREATININE SERUM 1.13 MG/DL (0.60-1.30); GFR ESTIMATED > 60
[2020-09-14 05:33] LABS: BUN/CREATININE RATIO 14
[2020-09-14 05:35] LABS: ALANINE AMINOTRANSFERASE 17 U/L (0-55)
[2020-09-14] MEDS: metroNIDAZOLE 500MG/100ML IVPB 100 ML IV SCH ×3 (06:06→21:20)
[2020-09-14] MEDS: LEVOTHYROXINE 25 MCG (LEVOTHROID) TAB PO SCH (06:06)
[2020-09-14] MEDS: PANTOPRAZOLE 40 MG (PROTONIX) VIAL IV SCH (08:26)
[2020-09-14] MEDS ORDERED: NS 100 ML (IVPB) BAG IV ONE (09:15)
[2020-09-14] MEDS ORDERED: IOHEXOL 350 MG/ML 100 ML (OMNIPAQUE 350) VIAL IV ONE (09:15)
[2020-09-14] MEDS ORDERED: HOLD METFORMIN - RECEIVED CONTRAST 20 ML VIAL IV SCH (09:15)
--- NOTE | 2020-09-14 09:39 | Progress Note ---
Subjective Subjective Date Seen by Provider: Sep 14, 2020 Time Seen by Provider: 09:20 PT IS A 64 Y/O MALE WHO IS A CLINIC PATIENT OF DR. 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 HE PRESENTED TO THE HOSPITAL WITH ABDOMINAL PAIN, NAUSEA, HAD CT SCAN WHICH SHOWED POSSIBLE APPENDICITIS AND SIGMOID DIVERTICULITIS. PT HAD IMPROVED NAUSEA OVERNIGHT AFTER BEING GIVEN ZOFRAN AND PHENERGAN. DR. GARCIAS WAS IN TO SEE PATIENT YESTERDAY AND ORDERED A CT SCAN FOR THIS MORNING AT 0700 WHICH HAS NOT YET BEEN PERFORMED OF 929. HE REPORTS THAT HE HAS A LOT OF BELCHING BUT NOT MUCH FLATULENCE. Review of Systems General: No Chills; Fatigue HEENT: No Head Aches Pulmonary: No Dyspnea, No Cough Cardiovascular: No: Chest Pain, Palpitations Gastrointestinal: Nausea, Abdominal Pain, Diarrhea; No: Vomiting Genitourinary: No Dysuria, No Frequency Neurological: No: Weakness, Confusion All Other Systems Reviewed All Other Systems Reviewed: Yes Objective Exam Vital Signs Vital Signs - First Documented 09/11/20 09/13/20 17:35 00:12 Temp 36.6 Pulse 80 Resp 18 B/P (MAP) 134/65 (88) Pulse Ox 97 O2 Delivery Room Air O2 Flow Rate 2.00 Capillary Refill : General Appearance: No Apparent Distress HEENT: PERRL/EOMI Neck: Full Range of Motion Respiratory: Chest Non Tender, Lungs Clear, Normal Breath Sounds, No Accessory Muscle Use Cardiovascular: Regular Rate, Rhythm Gastrointestinal: Soft, Abnormal Bowel Sounds (DECREASED BOWEL SOUNDS), Tenderness (LLQ and RLQ, TENDER TO PERCUSSION AND PALPATION) Rectal: Deferred Back: No CVA Tenderness Extremity: Normal Capillary Refill Neurologic/Psychiatric: Alert, Oriented x3 Skin: Normal Color Lymphatic: No Adenopathy Results Lab Laboratory Tests 09/14/20 04:45: White Blood Count 11.2H, Red Blood Count 5.14, Hemoglobin 12.8L, Hematocrit 40, Mean Corpuscular Volume 79L, Mean Corpuscular Hemoglobin 25, Mean Corpuscular Hemoglobin Concent 32, Red Cell Distribution Width 13.9, Platelet Count 248, Mean Platelet Volume 9.7, Sodium Level 137, Potassium Level 4.1, Chloride Level 107, Carbon Dioxide Level 16L, Anion Gap 14, Blood Urea Nitrogen 16, Creatinine 1.13, Estimat Glomerular Filtration Rate > 60, BUN/Creatinine Ratio 14, Glucose Level 169H, Calcium Level 9.3, Corrected Calcium 9.8, Total Bilirubin 0.6, Aspartate Amino Transf (AST/SGOT) 12, Alanine Aminotransferase (ALT/SGPT) 17, Alkaline Phosphatase 79, Total Protein 7.6, Albumin 3.4 Assessment/Plan Assessment/Plan Admission Dx RIGHT LOWER QUADRANT ABDOMINAL PAIN DIVERTICULITIS SIGMOID COLON NAUSEA EMESIS ELEVATED CRP, ESR LEUKOCYTOSIS MILD HYPONATREMIA Assessment and Plan RIGHT LOWER QUADRANT ABDOMINAL PAIN DIVERTICULITIS SIGMOID COLON NAUSEA EMESIS ELEVATED CRP, ESR LEUKOCYTOSIS MILD HYPONATREMIA RIGHT LOWER QUADRANT ABDOMINAL PAIN WITH DIVERTICULITIS SIGMOID COLON -CT OF ABDOMEN AND PELVIS ON 09/11/2020 FOLLOWS: There are surgical changes in the left upper quadrant with mild dilatation of gas distended distal esophagus. There is mild low-density in the liver parenchyma which is likely due to steatosis. There is mild nodularity along the serosal surface of the right lobe of the liver. This is somewhat atypical and could be related to cirrhosis. No definite gallbladder, pancreatic, splenic or adrenal gland abnormality is identified. Kidneys are also unremarkable in appearance. There is moderate aortoiliac atherosclerotic calcification. There is extensive mural thickening of what appears to be the terminal ileum and cecum. This demonstrates mild surrounding edema and/or inflammation. The appendix is difficult to isolate visually but may be inflamed as well with extension medially into the mesentery. There is mild edema and/or inflammation surrounding the sigmoid colon in the left lower quadrant which may contribute to patient's symptoms. Surgical clips are seen in this region. Partially opacified urinary bladder is somewhat displaced toward the right but otherwise unremarkable. IMPRESSION: Extensive mural thickening with edema and inflammation in the right lower quadrant. This could be inflammatory in nature secondary to either inflammatory bowel disease or acute appendicitis. Given the overall appearance, neoplasm cannot be fully excluded and endoscopic follow-up after treatment for possible infection would be of value. In addition there is edema and/or inflammation adjacent to the sigmoid colon which may be on the basis of acute diverticulitis. - PT IS ON FLAGYL 500MG IV TID, AND CEFEPIME, MONITOR SYMPTOMS, - DISCUSSED WITH DR. GARCIAS - WAITING ON CT SCAN WITH CONTRAST ORDERED FOR THIS MORNING. NAUSEA WITH EMESIS - PT ON ZOFRAN AND PROMETHAZINE IV FOR IMPROVED CONTROL OF NAUSEA/EMESIS. ELEVATED CRP, ESR - REPEAT LABS - SIGNIFICANTLY MORE ELEVATED THAN ON ADMISSION LEUKOCYTOSIS - SLIGHTLY IMPROVED FROM ADMISSION, ON IV ANTIBIOTICS, WILL MONTOR LABS TOMOR ROW MILD HYPONATREMIA - CONTINUE WITH IV FLUIDS NORMAL SALINE AT 125ML/HR - REPEAT LABS IN MORNING. PT ON LOVENOX FOR DVT PROPHYLAXIS GI PROPHYLAXIS WITH PROTONIX IV. Admission Dx RIGHT LOWER QUADRANT ABDOMINAL PAIN DIVERTICULITIS SIGMOID COLON NAUSEA EMESIS ELEVATED CRP, ESR LEUKOCYTOSIS MILD HYPONATREMIA Clinical Quality Measures Admission Status Admission Dx RIGHT LOWER QUADRANT ABDOMINAL PAIN DIVERTICULITIS SIGMOID COLON NAUSEA EMESIS ELEVATED CRP, ESR LEUKOCYTOSIS MILD HYPONATREMIA GERTRUDE KUHN MD Sep 14, 2020 09:39
--- NOTE | 2020-09-14 09:54 | Diagnostic Imaging Report ---
PROCEDURE: CT abdomen and pelvis with contrast. TECHNIQUE: Multiple contiguous axial images were obtained through the abdomen and pelvis after administration of intravenous contrast. Auto Exposure Controls were utilized during the CT exam to meet ALARA standards for radiation dose reduction. All CT scans use one or more of the following dose optimizing techniques: automated exposure control, MA and/or KvP adjustment based on patient size and exam type or iterative reconstruction. DATE: September 14, 2020. COMPARISON: CT abdomen pelvis September 11, 2020. INDICATION: 64-year-old male, right lower quadrant phlegmon. Pain. FINDINGS: There are linear opacities in the right middle lobe, right lower lobe, lingula, and left lower lobe most consistent with atelectasis. There is a trace amount of pleural fluid bilaterally. The heart is not enlarged. There is no pericardial effusion. There is diffuse fatty infiltration of the liver. There is no identified focal liver lesion. The main, right, and left portal veins are patent. The gallbladder is distended. There is no CT apparent gallstone. There is no intrahepatic or extrahepatic bile duct dilation. The main pancreatic duct is not abnormally dilated. Unremarkable appearance of the pancreatic parenchyma. The spleen is normal in size. The adrenal glands are unremarkable. There is a 5 mm low-attenuation left renal lesion on axial image 34 which is too small to characterize. The urinary collecting systems are not distended. There is no identified renal or ureteral stone. There is a Macias catheter in a collapsed urinary bladder. There is diverticulosis. There is abnormal wall thickening and inflammatory stranding centered in the region of the cecum and terminal ileum with somewhat abnormal masslike appearance measuring up to approximately 6.6 x 4.7 cm in axial extent on axial image 70. The appendix is not well identified. There does appear to be an abnormally enlarged low-attenuation right lower quadrant lymph node measuring 15 mm in short axis on axial image 56. There is abnormal distention of small bowel segments disproportional to colonic caliber measuring up to approximately 4.0 cm in diameter. There is no free intraperitoneal air. There is no well-demarcated focal drainable fluid collection. There is a very small amount of free fluid in the pelvis. There are atherosclerotic calcifications. There is no additional identified abnormally enlarged lymph node in the abdomen or pelvis meeting CT size criteria for adenopathy. There are degenerative changes of the spine. There are median sternotomy wires. There is no identified aggressive bone lesion. IMPRESSION: CT ABDOMEN AND PELVIS. 1. Abnormal heterogeneous attenuation prominent wall thickening and masslike abnormality in the right lower quadrant involving the terminal ileum and cecum with prominent adjacent inflammatory stranding and abnormal low-attenuation right lower quadrant lymph node. Differential diagnostic considerations would include malignancy, an infectious or inflammatory enteritis and colitis, and/or findings relating to acute appendicitis. The appendix cannot be well seen. Workup for definitive diagnosis is needed. 2. Abnormally dilated small bowel segments consistent with distal small bowel obstruction likely relating to the above mentioned abnormality. 3. Trace bilateral pleural effusions. Dictated by: Dictated on workstation # [id number]
--- NOTE | 2020-09-14 10:31 | Progress Note ---
Subjective Date Seen by a Provider: Sep 14, 2020 Time Seen by a Provider: 10:00 Subjective/Events-last exam doing better today. no fever/chills. minimal abd pain. Objective Exam Vital Signs Date Time Temp Pulse Resp B/P (MAP) Pulse Ox O2 Delivery O2 Flow Rate FiO2 09/14/20 07:36 36.9 73 16 156/77 (103) 92 Room Air 09/14/20 03:55 36.6 84 18 155/82 (106) 93 Nasal Cannula 2.00 09/14/20 00:00 36.3 84 18 160/89 (112) 92 Nasal Cannula 2.00 09/13/20 20:15 Room Air 09/13/20 19:32 36.4 87 16 166/87 (113) 92 Nasal Cannula 3.00 09/13/20 15:59 36.2 88 20 137/82 (100) 93 Room Air 09/13/20 11:17 37.4 71 18 144/88 (106) 92 Room Air I & O 09/14/20 07:00 Intake Total 610 ml Output Total 1550 ml Balance -940 ml Capillary Refill : General Appearance: No Apparent Distress HEENT: PERRL/EOMI Neck: Full Range of Motion Respiratory: Chest Non Tender, Normal Breath Sounds Cardiovascular: Regular Rate, Rhythm Gastrointestinal: normal bowel sounds, soft Extremity: Normal Capillary Refill Neurologic/Psychiatric: Alert, Oriented x3 Skin: Normal Color Lymphatic: No Adenopathy Results Lab Laboratory Tests 09/14/20 04:45: White Blood Count 11.2H, Red Blood Count 5.14, Hemoglobin 12.8L, Hematocrit 40, Mean Corpuscular Volume 79L, Mean Corpuscular Hemoglobin 25, Mean Corpuscular Hemoglobin Concent 32, Red Cell Distribution Width 13.9, Platelet Count 248, Mean Platelet Volume 9.7, Sodium Level 137, Potassium Level 4.1, Chloride Level 107, Carbon Dioxide Level 16L, Anion Gap 14, Blood Urea Nitrogen 16, Creatinine 1.13, Estimat Glomerular Filtration Rate > 60, BUN/Creatinine Ratio 14, Glucose Level 169H, Calcium Level 9.3, Corrected Calcium 9.8, Total Bilirubin 0.6, Aspartate Amino Transf (AST/SGOT) 12, Alanine Aminotransferase (ALT/SGPT) 17, Alkaline Phosphatase 79, Total Protein 7.6, Albumin 3.4 Assessment/Plan Assessment/Plan Assess & Plan/Chief Complaint ischemic colitis/right lower quadrant inflammatory phlegmon. conservative management. change abx. repeat CT abd and pelvis indicating mass lesion v. colitis/terminal ileitis. will need endoscopy as OP. start clears. KASHIF GARCIAS MD Sep 14, 2020 10:31
[2020-09-14] MEDS: PROMETHAZINE INJ 25 MG/ML (PHENERGAN) AMP IVP PRN ×2 (11:35→16:21)
[2020-09-14] MEDS: fentaNYL INJECTION 100 MCG/2 ML AMP IVP PRN ×2 (11:35→16:21)
--- NOTE | 2020-09-14 14:23 | Progress Note ---
Standard Progress Note Progress Notes/Assess & Plan Date Seen by a Provider: Sep 14, 2020 Time Seen by a Provider: 10:00 Progress/Assessment & Plan after further investigation, the patient did have a colonoscopy by us 12/09. only mild sigmoid diverticulosis and small benign polyp. patients sister was dx with ovarian ca and underwent genetic testing and found to be BRCA1 positive. patient was never tested however has a 50% chance of having the genetic mutation. lesion in RLQ represent terminal ileitis and cecal colitis however neoplastic lesion can not be excluded. one stable and likely as and outpatient, will schedule him for a colonoscopy and prostate check. Final Diagnosis terminal ileitis and colitis with possible neoplasm. KASHIF GARCIAS MD Sep 14, 2020 14:23
[2020-09-15] VITALS (7 sets, daily range): BP systolic 137–169; BP diastolic 72–88
[2020-09-15] MEDS: NS IV 1000 ML 1,000 ML IV SCH ×3 (01:32→19:56)
[2020-09-15] MEDS: PIPERACILLIN/TAZOBACTAM (BULK) 4.5 GM in NS (IVPB) 100 ML IV SCH ×3 (01:33→18:18)
[2020-09-15] MEDS: metroNIDAZOLE 500MG/100ML IVPB 100 ML IV SCH ×3 (06:11→22:28)
[2020-09-15] MEDS: LEVOTHYROXINE 25 MCG (LEVOTHROID) TAB PO SCH (06:11)
[2020-09-15] MEDS: PANTOPRAZOLE 40 MG (PROTONIX) VIAL IV SCH (09:54)
[2020-09-15] MEDS: ENOXAPARIN 40 MG/0.4 ML (LOVENOX) SYR SC SCH (11:54)
[2020-09-15] MEDS ORDERED: KCL 20 MEQ TAB (K-DUR) PO NR (12:30)
[2020-09-15] MEDS ORDERED: FUROSEMIDE 40 MG/4 ML INJ (LASIX) IVP NR (12:30)
--- NOTE | 2020-09-15 12:33 | Progress Note ---
Subjective Date Seen by a Provider: Sep 15, 2020 Time Seen by a Provider: 12:27 Subjective/Events-last exam Fwup acute diverticulitis/colitis/possible right lower quadrant mass. Patient is now requiring oxygen. No further N/V and abdominal pain is improved--on clear liquid diet. Objective Exam Vital Signs Date Time Temp Pulse Resp B/P (MAP) Pulse Ox O2 Delivery O2 Flow Rate FiO2 09/15/20 12:00 36.9 81 18 143/88 (106) 91 Nasal Cannula 2.00 09/15/20 08:04 90 Nasal Cannula 2.00 09/15/20 08:00 36.6 76 18 156/82 (106) 94 Room Air 09/15/20 08:00 90 Nasal Cannula 2.00 09/15/20 03:54 36.4 76 17 137/72 (93) 92 Nasal Cannula 2.00 09/15/20 00:00 36.6 78 18 155/84 (107) 94 Nasal Cannula 2.00 09/14/20 20:02 36.9 83 22 162/83 (109) 91 Room Air 09/14/20 19:41 Room Air 09/14/20 18:50 95 Room Air 09/14/20 16:00 36.8 88 20 137/66 (89) 93 Room Air I & O 09/15/20 07:00 Intake Total 2990 ml Output Total 855 ml Balance 2135 ml Capillary Refill : General Appearance: Mild Distress Respiratory: Lungs Clear, Decreased Breath Sounds Cardiovascular: Regular Rate, Rhythm, Systolic Murmur Gastrointestinal: normal bowel sounds, soft, tenderness (RLQ and SP ) Extremity: Non Tender, No Calf Tenderness, No Pedal Edema Neurologic/Psychiatric: Alert, Oriented x3 Assessment/Plan Assessment/Plan Assess & Plan/Chief Complaint 1. Acute Diverticulitis/Colitis--continue IV abx and repeat labs with CBC/CRP in AM 2. Hypertension--restart metoprolol 3. HypoxiaAtelectesis--lasix IV now, decrease IVF rate, start albuterol MDI routinely, on IS, up to chair/ambulate 4. Possible RLQ mass--patient understands will need updated colonoscopy 5. Hepatomegaly--further evaluation as outpatient as well Clinical Quality Measures Admission Status Admission Dx 1. Acute Diverticulitis/Colitis--admit for IVFs, gut rest, IV antibiotics, IV pain control, surgical consult, lovenox for DVT prophylaxis 2. Hepatomegaly with nodularity--discussed further workup once over this acute episode 3. Hypertension--BP currently stable with no meds 4. COPD--resume inhalers 5. History of CAD--stable YENI RUVALCABA DO Sep 15, 2020 12:33
[2020-09-15] MEDS: RT-ALBUTEROL INHALER HFA (VENTOLIN HFA) 18 GM IH SCH ×3 (14:55→21:35)
--- NOTE | 2020-09-15 17:53 | Progress Note ---
Subjective Date Seen by a Provider: Sep 15, 2020 Time Seen by a Provider: 17:30 Subjective/Events-last exam doing better. having loose stools. no blood. no fever/chills. tolerating clears. Objective Exam Vital Signs Date Time Temp Pulse Resp B/P (MAP) Pulse Ox O2 Delivery O2 Flow Rate FiO2 09/15/20 16:00 36.5 87 18 169/87 (114) 92 Nasal Cannula 2.00 09/15/20 14:55 92 Nasal Cannula 2.00 09/15/20 12:00 36.9 81 18 143/88 (106) 91 Nasal Cannula 2.00 09/15/20 08:04 90 Nasal Cannula 2.00 09/15/20 08:00 36.6 76 18 156/82 (106) 94 Room Air 09/15/20 08:00 90 Nasal Cannula 2.00 09/15/20 03:54 36.4 76 17 137/72 (93) 92 Nasal Cannula 2.00 09/15/20 00:00 36.6 78 18 155/84 (107) 94 Nasal Cannula 2.00 09/14/20 20:02 36.9 83 22 162/83 (109) 91 Room Air 09/14/20 19:41 Room Air 09/14/20 18:50 95 Room Air I & O 09/15/20 07:00 Intake Total 2990 ml Output Total 855 ml Balance 2135 ml Capillary Refill : General Appearance: No Apparent Distress HEENT: PERRL/EOMI Neck: Full Range of Motion Respiratory: Chest Non Tender, Decreased Breath Sounds Cardiovascular: Regular Rate, Rhythm Gastrointestinal: normal bowel sounds, non tender, soft Extremity: Normal Capillary Refill Neurologic/Psychiatric: Alert, Oriented x3 Skin: Normal Color Lymphatic: No Adenopathy Assessment/Plan Assessment/Plan Assess & Plan/Chief Complaint ischemic colitis/right lower quadrant inflammatory phlegmon. conservative management. change abx. having multiple loose BM's. repeat CT abd and pelvis indicating mass lesion v. colitis/terminal ileitis. will need endoscopy as OP. advance to dys3 diet. KASHIF GARCIAS MD Sep 15, 2020 17:53
[2020-09-16] MEDS: PIPERACILLIN/TAZOBACTAM (BULK) 4.5 GM in NS (IVPB) 100 ML IV SCH ×3 (01:43→17:16)
[2020-09-16] MEDS: RT-ALBUTEROL INHALER HFA (VENTOLIN HFA) 18 GM IH SCH ×6 (02:20→21:44)
[2020-09-16 03:24] VITALS: BP 153/77
[2020-09-16] MEDS: LEVOTHYROXINE 25 MCG (LEVOTHROID) TAB PO SCH (06:17)
[2020-09-16] MEDS: metroNIDAZOLE 500MG/100ML IVPB 100 ML IV SCH ×2 (06:18→13:28)
[2020-09-16 08:00] VITALS: BP 161/80
[2020-09-16 09:16] LABS: HEMOGLOBIN 12.5 g/dL (13.3-17.7); MEAN PLATELET VOLUME 10.1 fL (9.0-12.2); WHITE BLOOD COUNT 8.3 10^3/uL (4.3-11.0)
[2020-09-16] MEDS: PANTOPRAZOLE 40 MG (PROTONIX) VIAL IV SCH (09:18)
[2020-09-16] MEDS: NS IV 1000 ML 1,000 ML IV SCH ×2 (09:18→14:28)
[2020-09-16 09:21] LABS: ALBUMIN 3.4 GM/DL (3.2-4.5); CHLORIDE 104 MMOL/L (98-107); POTASSIUM 3.5 MMOL/L (3.6-5.0); SODIUM 139 MMOL/L (135-145)
[2020-09-16 09:23] LABS: CALCIUM 8.8 MG/DL (8.5-10.1)
[2020-09-16 09:24] LABS: GLUCOSE 123 MG/DL (70-105); TOTAL PROTEIN 7.2 GM/DL (6.4-8.2)
[2020-09-16 09:25] LABS: BILIRUBIN,TOTAL 0.5 MG/DL (0.1-1.0); CARBON DIOXIDE 23 MMOL/L (21-32)
[2020-09-16 09:27] LABS: ALKALINE PHOSPHATASE 61 U/L (40-136); CREATININE SERUM 1.18 MG/DL (0.60-1.30); GFR ESTIMATED > 60
[2020-09-16 09:28] LABS: BUN/CREATININE RATIO 14
[2020-09-16 09:30] LABS: ALANINE AMINOTRANSFERASE 13 U/L (0-55)
--- NOTE | 2020-09-16 09:31 | Diagnostic Imaging Report ---
CLINICAL INDICATION: Patient is having abdominal pain. EXAM: Portable chest x-ray, upright view. COMPARISON: Chest x-ray dated 04/29/2012. CT scan of the abdomen and pelvis with contrast dated 09/14/2020. FINDINGS: Lungs/pleura: There is interval improved aeration of both lungs. There is mild patchy airspace opacities in both lung bases seen. There is no pneumothorax. There is no pleural effusion. Mediastinum: Unremarkable. Pulmonary vasculature: Unremarkable. Heart: The heart size is within normal limits. Stable postop changes of the chest, consistent with CABG. Bones/extrathoracic soft tissue: There are degenerative spurs involving the thoracic spine. There are partially visualized dilated air-filled loops of small bowel overlying the upper abdomen. This was also seen on the comparison CT of the abdomen and pelvis. IMPRESSION: 1: There is mild bibasilar atelectasis versus infiltrate. 2: Partially visualized dilated air-filled loops of small bowel overlying the upper abdomen. This was also seen on the comparison CT scan of the abdomen and pelvis. Dictated by: Dictated on workstation # [id number]
--- NOTE | 2020-09-16 09:40 | Diagnostic Imaging Report ---
INDICATION: Abdominal distention. FINDINGS: There are multiple dilated loops of small bowel in the mid and upper abdomen with air-fluid levels. The maximal diameter is approximately 6 to 7 cm. There is no gas or stool within the colon. IMPRESSION: Findings of a high-grade small bowel obstruction. Overall appearance has changed very little since the previous CT scan of 09/14/2020. Dictated by: Dictated on workstation # [id number]
[2020-09-16] MEDS: ENOXAPARIN 40 MG/0.4 ML (LOVENOX) SYR SC SCH (10:20)
[2020-09-16] MEDS: HYDROmorphone 2 MG/ML VIAL (DILAUDID) IV PRN (11:12)
[2020-09-16 12:00] VITALS: BP 144/87
--- NOTE | 2020-09-16 14:24 | Progress Note ---
Subjective Date Seen by a Provider: Sep 16, 2020 Time Seen by a Provider: 14:00 Subjective/Events-last exam doing better this afternoon. on toilet now and states feels like BM coming. likely very slow transit thru ileocecal area but not fully obstructed. Objective Exam Vital Signs Date Time Temp Pulse Resp B/P (MAP) Pulse Ox O2 Delivery O2 Flow Rate FiO2 09/16/20 10:30 90 Nasal Cannula 2.00 09/16/20 08:00 36.6 71 18 161/80 (107) 92 Nasal Cannula 2.00 09/16/20 08:00 90 Nasal Cannula 2.00 09/16/20 07:38 90 Nasal Cannula 2.00 09/16/20 03:24 36.9 82 20 153/77 (102) 93 Nasal Cannula 2.00 09/16/20 02:20 90 Nasal Cannula 2.00 09/15/20 23:07 37.0 80 20 145/88 (107) 94 Nasal Cannula 2.00 09/15/20 23:05 Nasal Cannula 2.00 09/15/20 21:35 91 Nasal Cannula 2.00 09/15/20 20:00 Nasal Cannula 2.00 09/15/20 19:59 36.6 87 18 141/87 (105) 92 Nasal Cannula 2.00 09/15/20 18:12 91 Nasal Cannula 2.00 09/15/20 16:00 36.5 87 18 169/87 (114) 92 Nasal Cannula 2.00 09/15/20 14:55 92 Nasal Cannula 2.00 I & O 09/16/20 07:00 Intake Total 3140 ml Output Total 2675 ml Balance 465 ml Capillary Refill : General Appearance: No Apparent Distress HEENT: PERRL/EOMI Neck: Full Range of Motion Respiratory: Chest Non Tender, Decreased Breath Sounds Cardiovascular: Regular Rate, Rhythm Gastrointestinal: normal bowel sounds, soft, distended Extremity: Normal Capillary Refill Neurologic/Psychiatric: Alert, Oriented x3 Skin: Normal Color Lymphatic: No Adenopathy Results Lab Laboratory Tests 09/16/20 06:00: White Blood Count 8.3, Red Blood Count 4.97, Hemoglobin 12.5L, Hematocrit 40, Mean Corpuscular Volume 80, Mean Corpuscular Hemoglobin 25, Mean Corpuscular Hemoglobin Concent 32, Red Cell Distribution Width 14.4, Platelet Count 260, Mean Platelet Volume 10.1, Sodium Level 139, Potassium Level 3.5L, Chloride Level 104, Carbon Dioxide Level 23, Anion Gap 12, Blood Urea Nitrogen 17, Creatinine 1.18, Estimat Glomerular Filtration Rate > 60, BUN/Creatinine Ratio 14, Glucose Level 123H, Calcium Level 8.8, Corrected Calcium 9.3, Total Bilirubin 0.5, Aspartate Amino Transf (AST/SGOT) 14, Alanine Aminotransferase (ALT/SGPT) 13, Alkaline Phosphatase 61, Troponin I < 0.028, C-Reactive Protein High Sensitivity 3.17H, B-Type Natriuretic Peptide 233.5H, Total Protein 7.2, Albumin 3.4 Assessment/Plan Assessment/Plan Assess & Plan/Chief Complaint ischemic colitis/right lower quadrant inflammatory phlegmon. conservative management. change abx. having multiple loose BM's. repeat CT abd and pelvis indicating mass lesion v. colitis/terminal ileitis. will need endoscopy as OP. very slow transit thru area of infammation/mass however not fully obstructed. no NGT at this time however objective will be to take in liquids and liquid supplements and allow resolution inflammation and then OP colonoscopy with biopsy. if neoplasm then will need surgery however if only purely inflammatory will be medical management. KASHIF GARCIAS MD Sep 16, 2020 14:24
[2020-09-16 16:00] VITALS: BP 147/86
--- NOTE | 2020-09-16 17:17 | Progress Note ---
Subjective Date Seen by a Provider: Sep 16, 2020 Time Seen by a Provider: 08:15 Subjective/Events-last exam Fwup acute diverticulitis/colitis/possible right lower quadrant mass, HTN. This morning was more distended with upper abdomen pain/chest pain. Objective Exam Vital Signs Date Time Temp Pulse Resp B/P (MAP) Pulse Ox O2 Delivery O2 Flow Rate FiO2 09/16/20 16:00 36.2 83 18 147/86 (106) 93 Nasal Cannula 2.00 09/16/20 15:19 84 Room Air 09/16/20 12:00 36.5 80 18 144/87 (106) 90 Nasal Cannula 2.00 09/16/20 10:30 90 Nasal Cannula 2.00 09/16/20 08:00 36.6 71 18 161/80 (107) 92 Nasal Cannula 2.00 09/16/20 08:00 90 Nasal Cannula 2.00 09/16/20 07:38 90 Nasal Cannula 2.00 09/16/20 03:24 36.9 82 20 153/77 (102) 93 Nasal Cannula 2.00 09/16/20 02:20 90 Nasal Cannula 2.00 09/15/20 23:07 37.0 80 20 145/88 (107) 94 Nasal Cannula 2.00 09/15/20 23:05 Nasal Cannula 2.00 09/15/20 21:35 91 Nasal Cannula 2.00 09/15/20 20:00 Nasal Cannula 2.00 09/15/20 19:59 36.6 87 18 141/87 (105) 92 Nasal Cannula 2.00 09/15/20 18:12 91 Nasal Cannula 2.00 I & O 09/16/20 07:00 Intake Total 3140 ml Output Total 2675 ml Balance 465 ml Capillary Refill : General Appearance: Moderate Distress Neck: Supple Respiratory: Lungs Clear, Decreased Breath Sounds Cardiovascular: Regular Rate, Rhythm Gastrointestinal: abnormal bowel sounds, distended, tenderness Extremity: Non Tender, No Calf Tenderness, No Pedal Edema Neurologic/Psychiatric: Alert, Oriented x3 Skin: Warm/Dry Results Lab Laboratory Tests 09/16/20 06:00: White Blood Count 8.3, Red Blood Count 4.97, Hemoglobin 12.5L, Hematocrit 40, Mean Corpuscular Volume 80, Mean Corpuscular Hemoglobin 25, Mean Corpuscular Hemoglobin Concent 32, Red Cell Distribution Width 14.4, Platelet Count 260, Mean Platelet Volume 10.1, Sodium Level 139, Potassium Level 3.5L, Chloride Level 104, Carbon Dioxide Level 23, Anion Gap 12, Blood Urea Nitrogen 17, Creatinine 1.18, Estimat Glomerular Filtration Rate > 60, BUN/Creatinine Ratio 14, Glucose Level 123H, Calcium Level 8.8, Corrected Calcium 9.3, Total Bilirubin 0.5, Aspartate Amino Transf (AST/SGOT) 14, Alanine Aminotransferase (ALT/SGPT) 13, Alkaline Phosphatase 61, Troponin I < 0.028, C-Reactive Protein High Sensitivity 3.17H, B-Type Natriuretic Peptide 233.5H, Total Protein 7.2, Albumin 3.4 Assessment/Plan Assessment/Plan Assess & Plan/Chief Complaint 1. Acute Diverticulitis/Colitis--continue IV abx, stat flat/upright abdomen now 2. Hypertension--restarted metoprolol 3. HypoxiaAtelectesis--check CXR 4. Possible RLQ mass--patient understands will need updated colonoscopy 5. Hepatomegaly--further evaluation as outpatient as well Clinical Quality Measures Admission Status Admission Dx 1. Acute Diverticulitis/Colitis--admit for IVFs, gut rest, IV antibiotics, IV pain control, surgical consult, lovenox for DVT prophylaxis 2. Hepatomegaly with nodularity--discussed further workup once over this acute episode 3. Hypertension--BP currently stable with no meds 4. COPD--resume inhalers 5. History of CAD--stable YENI RUVALCABA DO Sep 16, 2020 17:17
[2020-09-16 19:39] VITALS: BP 138/78
[2020-09-16] MEDS: fentaNYL INJECTION 100 MCG/2 ML AMP IVP PRN (21:37)
[2020-09-16 23:56] VITALS: BP 133/72
[2020-09-17] MEDS: RT-ALBUTEROL INHALER HFA (VENTOLIN HFA) 18 GM IH SCH ×6 (01:43→22:02)
[2020-09-17] MEDS: PIPERACILLIN/TAZOBACTAM (BULK) 4.5 GM in NS (IVPB) 100 ML IV SCH ×3 (02:30→17:43)
[2020-09-17] MEDS: fentaNYL INJECTION 100 MCG/2 ML AMP IVP PRN ×2 (02:37→11:47)
[2020-09-17 03:57] VITALS: BP 138/71
[2020-09-17] MEDS: HYDROmorphone 2 MG/ML VIAL (DILAUDID) IV PRN (04:20)
[2020-09-17] MEDS: LEVOTHYROXINE 25 MCG (LEVOTHROID) TAB PO SCH (06:35)
[2020-09-17 08:00] VITALS: BP 140/78
[2020-09-17] MEDS: PANTOPRAZOLE 40 MG (PROTONIX) VIAL IV SCH (08:25)
[2020-09-17] MEDS: ENOXAPARIN 40 MG/0.4 ML (LOVENOX) SYR SC SCH (09:51)
[2020-09-17] MEDS ORDERED: METR500T PO (10:06)
[2020-09-17] MEDS: NS IV 1000 ML 1,000 ML IV SCH (11:45)
[2020-09-17 12:00] VITALS: BP 164/89
--- NOTE | 2020-09-17 12:27 | Progress Note ---
Subjective Date Seen by a Provider: Sep 17, 2020 Time Seen by a Provider: 12:23 Subjective/Events-last exam Fwup acute diverticulitis/colitis/possible right lower quadrant mass, HTN. Was feeling better last night but worsening pain this morning back to lower abdomen/suprapubic. Had several BMS yesterday but none today. Objective Exam Vital Signs Date Time Temp Pulse Resp B/P (MAP) Pulse Ox O2 Delivery O2 Flow Rate FiO2 09/17/20 08:20 90 Nasal Cannula 2.00 09/17/20 08:00 35.6 70 21 140/78 (98) 90 Nasal Cannula 2.00 09/17/20 03:57 36.3 77 16 138/71 (93) 92 Nasal Cannula 2.00 09/17/20 01:43 93 Nasal Cannula 2.00 09/16/20 23:56 36.4 81 17 133/72 (92) 92 Nasal Cannula 2.00 09/16/20 21:44 95 Nasal Cannula 2.00 09/16/20 20:10 Nasal Cannula 2.00 09/16/20 19:39 36.2 80 18 138/78 (98) 93 Nasal Cannula 2.00 09/16/20 17:54 92 Nasal Cannula 2.00 09/16/20 16:00 36.2 83 18 147/86 (106) 93 Nasal Cannula 2.00 09/16/20 15:19 84 Room Air I & O 09/17/20 07:00 Intake Total 2430 ml Output Total 650 ml Balance 1780 ml Capillary Refill : General Appearance: Moderate Distress (due to pain) Respiratory: Lungs Clear Cardiovascular: Regular Rate, Rhythm Gastrointestinal: abnormal bowel sounds, distended, tenderness Extremity: Non Tender, No Calf Tenderness, No Pedal Edema Neurologic/Psychiatric: Alert, Oriented x3 Skin: Warm/Dry Assessment/Plan Assessment/Plan Assess & Plan/Chief Complaint 1. Acute Diverticulitis/Colitis--continue IV zosyn and start oral flagyl 2. Hypertension--restarted metoprolol 3. HypoxiaAtelectesis--on IS 4. Possible RLQ mass--patient understands will need updated colonoscopy 5. Hepatomegaly--further evaluation as outpatient as well 6. Abdominal Distention/Ileus--Dr. Dailey started docusate, ambulate, was bruno nning DC but patient requiring fentanyl for pain control and is still distended Clinical Quality Measures Admission Status Admission Dx 1. Acute Diverticulitis/Colitis--admit for IVFs, gut rest, IV antibiotics, IV pain control, surgical consult, lovenox for DVT prophylaxis 2. Hepatomegaly with nodularity--discussed further workup once over this acute episode 3. Hypertension--BP currently stable with no meds 4. COPD--resume inhalers 5. History of CAD--stable YENI RUVALCABA DO Sep 17, 2020 12:27
[2020-09-17] MEDS ORDERED: DOCUSATE SODIUM 100 MG (COLACE) CAP PO NR (12:30)
[2020-09-17] MEDS: metroNIDAZOLE 500 MG (FLAGYL) TAB PO SCH ×2 (13:39→20:05)
--- NOTE | 2020-09-17 14:58 | Progress Note ---
Subjective Date Seen by a Provider: Sep 17, 2020 Time Seen by a Provider: 10:00 Subjective/Events-last exam doing ok. still has some abd distention however improved. does feel hungry. Objective Exam Vital Signs Date Time Temp Pulse Resp B/P (MAP) Pulse Ox O2 Delivery O2 Flow Rate FiO2 09/17/20 12:00 36.3 77 20 164/89 (114) 93 Nasal Cannula 2.00 09/17/20 08:20 90 Nasal Cannula 2.00 09/17/20 08:00 35.6 70 21 140/78 (98) 90 Nasal Cannula 2.00 09/17/20 03:57 36.3 77 16 138/71 (93) 92 Nasal Cannula 2.00 09/17/20 01:43 93 Nasal Cannula 2.00 09/16/20 23:56 36.4 81 17 133/72 (92) 92 Nasal Cannula 2.00 09/16/20 21:44 95 Nasal Cannula 2.00 09/16/20 20:10 Nasal Cannula 2.00 09/16/20 19:39 36.2 80 18 138/78 (98) 93 Nasal Cannula 2.00 09/16/20 17:54 92 Nasal Cannula 2.00 09/16/20 16:00 36.2 83 18 147/86 (106) 93 Nasal Cannula 2.00 09/16/20 15:19 84 Room Air I & O 09/17/20 07:00 Intake Total 2430 ml Output Total 650 ml Balance 1780 ml Capillary Refill : General Appearance: No Apparent Distress HEENT: PERRL/EOMI Neck: Full Range of Motion Respiratory: Chest Non Tender, Normal Breath Sounds, Decreased Breath Sounds Cardiovascular: Regular Rate, Rhythm Gastrointestinal: normal bowel sounds, soft, distended Extremity: Normal Capillary Refill Neurologic/Psychiatric: Alert, Oriented x3 Skin: Normal Color Lymphatic: No Adenopathy Assessment/Plan Assessment/Plan Assess & Plan/Chief Complaint ischemic colitis/right lower quadrant inflammatory phlegmon. conservative management. change abx. having multiple loose BM's. repeat CT abd and pelvis indicating mass lesion v. colitis/terminal ileitis. will need endoscopy as OP. very slow transit thru area of infammation/mass however not fully obstructed. no NGT at this time however objective will be to take in liquids and liquid supplements and allow resolution inflammation and then OP colonoscopy with biopsy. if neoplasm then will need surgery however if only purely inflammatory will be medical management. when home will recommend dys mechanically altered soft food as well as colace 200mg BID to promote loose stools. KASHIF GARCIAS MD Sep 17, 2020 14:58
[2020-09-17 16:16] VITALS: BP 158/98
[2020-09-17 19:54] VITALS: BP 166/92
[2020-09-17] MEDS: DOCUSATE SODIUM 100 MG (COLACE) CAP PO SCH (20:04)
[2020-09-18] VITALS: BP_SYST 128; BP_SYST 134; BP_DIAS 77; BP_DIAS 88
[2020-09-18] MEDS: PIPERACILLIN/TAZOBACTAM (BULK) 4.5 GM in NS (IVPB) 100 ML IV SCH ×3 (01:44→17:49)
[2020-09-18] MEDS: NS IV 1000 ML 1,000 ML IV SCH ×2 (01:44→08:38)
[2020-09-18] MEDS: PROMETHAZINE INJ 25 MG/ML (PHENERGAN) AMP IVP PRN (01:49)
[2020-09-18] MEDS: RT-ALBUTEROL INHALER HFA (VENTOLIN HFA) 18 GM IH SCH ×6 (02:22→21:30)
[2020-09-18 04:00] VITALS: BP 154/84
[2020-09-18] MEDS: LEVOTHYROXINE 25 MCG (LEVOTHROID) TAB PO SCH (05:26)
[2020-09-18] MEDS: metroNIDAZOLE 500 MG (FLAGYL) TAB PO SCH ×3 (05:26→20:10)
[2020-09-18 06:34] LABS: HEMOGLOBIN 12.6 g/dL (13.3-17.7); MEAN PLATELET VOLUME 10.4 fL (9.0-12.2)
[2020-09-18 06:49] LABS: CHLORIDE 106 MMOL/L (98-107); POTASSIUM 3.6 MMOL/L (3.6-5.0); SODIUM 139 MMOL/L (135-145)
[2020-09-18 06:50] LABS: CALCIUM 9.1 MG/DL (8.5-10.1)
[2020-09-18 06:51] LABS: GLUCOSE 138 MG/DL (70-105)
[2020-09-18 06:52] LABS: CARBON DIOXIDE 21 MMOL/L (21-32)
[2020-09-18 06:54] LABS: CREATININE SERUM 1.09 MG/DL (0.60-1.30); GFR ESTIMATED > 60
[2020-09-18 06:55] LABS: BUN/CREATININE RATIO 9
--- NOTE | 2020-09-18 07:02 | Progress Note - Surgery ---
SUKHDEEP ESCOBAR MED STUDENT 09/18/20 0702: Subjective Date Seen by a Provider: Sep 18, 2020 Time Seen by a Provider: 06:57 Subjective/Events-last exam Pt awake and in bed upon entering. States he is doing well. Pt has been coughing up phlegm this morning. Denies pain, nausea, or vomiting. Confirms 6 loose BM this morning. No acute events overnight. Review of Systems General: No Chills, No Fatigue HEENT: No Head Aches, No Dysphasia Pulmonary: Dyspnea, Cough Cardiovascular: No: Chest Pain, Palpitations Gastrointestinal: Diarrhea; No: Nausea, Vomiting, Abdominal Pain Genitourinary: No Dysuria, No Retention Musculoskeletal: No: back pain, leg pain Neurological: No: Weakness, Numbness Objective Exam Vital Signs Date Time Temp Pulse Resp B/P (MAP) Pulse Ox O2 Delivery O2 Flow Rate FiO2 09/18/20 06:42 92 Nasal Cannula 3.00 09/18/20 04:00 36.2 74 20 154/84 (107) 93 Nasal Cannula 3.00 09/18/20 02:23 90 Nasal Cannula 2.00 09/18/20 00:00 36.1 83 20 134/88 (103) 93 Nasal Cannula 3.00 09/17/20 22:02 92 Nasal Cannula 3.00 09/17/20 20:00 90 Nasal Cannula 2.00 09/17/20 19:54 36.6 85 20 166/92 (116) 93 Nasal Cannula 3.00 09/17/20 18:37 92 Nasal Cannula 3.00 09/17/20 16:16 36.5 84 20 158/98 (118) 97 Nasal Cannula 3.00 09/17/20 14:43 92 Nasal Cannula 3.00 09/17/20 12:00 36.3 77 20 164/89 (114) 93 Nasal Cannula 2.00 09/17/20 10:35 92 Nasal Cannula 3.00 09/17/20 08:20 90 Nasal Cannula 2.00 09/17/20 08:00 35.6 70 21 140/78 (98) 90 Nasal Cannula 2.00 09/17/20 06:58 92 Nasal Cannula 3.00 I & O 09/18/20 07:00 Intake Total 1475 ml Output Total 3000 ml Balance -1525 ml Capillary Refill : General Appearance: No Apparent Distress, WD/WN HEENT: PERRL/EOMI, Moist Mucous Membranes Neck: Full Range of Motion, Normal Inspection, Non Tender, Supple Respiratory: Chest Non Tender, Normal Breath Sounds, Decreased Breath Sounds Cardiovascular: Regular Rate, Rhythm, No Edema, Normal Peripheral Pulses Peripheral Pulses: 2+ Dorsalis Pedis (R), 2+ Left Dors-Pedis (L), 2+ Radial Pul ses (R), 2+ Radial Pulses (L) Gastrointestinal: normal bowel sounds, non tender, soft, distended Extremity: Normal Capillary Refill, Non Tender, No Pedal Edema Neurologic/Psychiatric: Alert, Oriented x3, No Motor/Sensory Deficits, Normal Mood/Affect Skin: Normal Color, Warm/Dry Lymphatic: No Adenopathy (cervical, supraclavicular, axillary) Results Lab Laboratory Tests 09/18/20 05:47: White Blood Count 6.0, Red Blood Count 5.02, Hemoglobin 12.6L, Hematocrit 39L, Mean Corpuscular Volume 79L, Mean Corpuscular Hemoglobin 25, Mean Corpuscular Hemoglobin Concent 32, Red Cell Distribution Width 14.6H, Platelet Count 240, Mean Platelet Volume 10.4, Sodium Level 139, Potassium Level 3.6, Chloride Level 106, Carbon Dioxide Level 21, Anion Gap 12, Blood Urea Nitrogen 10, Creatinine 1.09, Estimat Glomerular Filtration Rate > 60, BUN/Creatinine Ratio 9, Glucose Level 138H, Calcium Level 9.1, C-Reactive Protein High Sensitivity 2.65H Assessment/Plan Assessment/Plan Assessment/Plan ischemic colitis/right lower quadrant inflammatory phlegmon. conservative management. continue abx. having multiple loose BM's. CT abd and pelvis indicating mass lesion v. colitis/terminal ileitis. will need endoscopy as OP. very slow transit thru area of infammation/mass however not fully obstructed. no NGT at this time however objective will be to take in liquids and liquid supplements and allow resolution inflammation and then OP colonoscopy with biopsy. if neoplasm then will need surgery however if only purely inflammatory will be medical management. when home will recommend dys mechanically altered soft food as well as colace 200mg BID to promote loose stools. OSMIN RAMOS DO 09/18/20 8217: Subjective Time Seen by a Provider: 11:51 Subjective/Events-last exam Pt seen and examined, states his belly is not better. Looked like he may have been having some emesis. Reports 6 very small liquid BM's. Review of Systems General: No Chills, No Fatigue HEENT: No Head Aches, No Dysphasia Pulmonary: Dyspnea, Cough Cardiovascular: No: Chest Pain, Palpitations Gastrointestinal: Nausea, Vomiting, Abdominal Pain, Diarrhea Genitourinary: No Dysuria Objective Exam General Appearance: No Apparent Distress, WD/WN, Obese HEENT: PERRL/EOMI, Moist Mucous Membranes Respiratory: No Accessory Muscle Use, No Respiratory Distress, Decreased Breath Sounds (at bases) Cardiovascular: Regular Rate, Rhythm, No Murmur Gastrointestinal: soft, distended, tenderness (minimal, all over abdomen with palpation) Neurologic/Psychiatric: Alert, Oriented x3, Normal Mood/Affect Assessment/Plan Assessment/Plan Assessment/Plan PSBO - secondary 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 colitis vs appendicitis CAD, DM, HTN Pt has been trying to eat, but that is not working and he is still very distended. I ordered an Acute Abd series, which still shows air fluid levels. I think the best course of option is a colonoscopy to visualize the right side of large intestion; specifically around the cecum and ileal-cecal valve. Plan t o get biopsy if possible. Will have pt do some enema's today and plan for procedure tomorrow. Discussed the risks and complications not limited to pain, bleeding, infection and intestinal perforation with need for further procedure. He may also need a SBFT if I am unsuccessful in getting to the right side. When I reviewed the CT, the large bowel was very decompressed - almost smaller than a normal small bowel. Small bowel was very distended. All questions answered to pt's satisfaction. Supervisory-Addendum Brief Verification & Attestation Participated in pt care: history, MDM, physical Personally performed: history, MDM Care discussed with: Medical Student Procedures: n/a Verification and Attestation of Medical Student E/M Service A medical student performed and documented this service. I then reviewed and verified all information documented by the medical student and made modifications to such information, when appropriate. I personally performed a physical exam, medical decision making and then discussed any differences between the notes and made revisions as necessary to create one note. Osmin Ramos , 09/18/20 , 17:07 SUKHDEEP ESCOBAR MED STUDENT Sep 18, 2020 07:02 OSMIN RAMOS DO Sep 18, 2020 17:07
[2020-09-18 07:35] VITALS: BP 135/81
[2020-09-18] MEDS: DOCUSATE SODIUM 100 MG (COLACE) CAP PO SCH ×2 (08:30→19:50)
[2020-09-18] MEDS: PANTOPRAZOLE 40 MG (PROTONIX) VIAL IV SCH (08:38)
--- NOTE | 2020-09-18 08:52 | Diagnostic Imaging Report ---
INDICATION: Abdominal distention FINDINGS: Abdomen series PA chest, supine and upright abdominal images are obtained. There are postoperative changes from CABG surgery. There is atelectasis at both lung bases. There are air-filled loops of small bowel that are distended and have air-fluid levels. The pattern is suggestive of a small bowel obstruction. IMPRESSION: Small bowel obstruction. This appears similar to the prior exam done 09/16/2020. Dictated by: Dictated on workstation # [id number]
[2020-09-18] MEDS: ENOXAPARIN 40 MG/0.4 ML (LOVENOX) SYR SC SCH (10:36)
[2020-09-18] MEDS: ONDANSETRON 4 MG/2 ML (SDV) Z0FRAN IV PRN (10:41)
[2020-09-18 12:00] VITALS: BP 162/79
[2020-09-18] MEDS ORDERED: KCL 20 MEQ TAB (K-DUR) PO NR (12:45)
[2020-09-18] MEDS ORDERED: FUROSEMIDE 40 MG/4 ML INJ (LASIX) IVP NR (12:45)
--- NOTE | 2020-09-18 12:47 | Progress Note ---
Subjective Date Seen by a Provider: Sep 18, 2020 Time Seen by a Provider: 12:45 Subjective/Events-last exam Fwup acute diverticulitis/colitis/possible right lower quadrant mass, HTN. Pain today if epigastric area and spitting up phlegm. Objective Exam Vital Signs Date Time Temp Pulse Resp B/P (MAP) Pulse Ox O2 Delivery O2 Flow Rate FiO2 09/18/20 10:31 92 Nasal Cannula 3.00 09/18/20 08:00 92 Nasal Cannula 3.00 09/18/20 07:35 37.0 96 20 135/81 (99) 94 Nasal Cannula 3.00 3.00 09/18/20 06:42 92 Nasal Cannula 3.00 09/18/20 04:00 36.2 74 20 154/84 (107) 93 Nasal Cannula 3.00 09/18/20 02:23 90 Nasal Cannula 2.00 09/18/20 00:00 36.1 83 20 134/88 (103) 93 Nasal Cannula 3.00 09/17/20 22:02 92 Nasal Cannula 3.00 09/17/20 20:00 90 Nasal Cannula 2.00 09/17/20 19:54 36.6 85 20 166/92 (116) 93 Nasal Cannula 3.00 09/17/20 18:37 92 Nasal Cannula 3.00 09/17/20 16:16 36.5 84 20 158/98 (118) 97 Nasal Cannula 3.00 09/17/20 14:43 92 Nasal Cannula 3.00 I & O 09/18/20 07:00 Intake Total 1475 ml Output Total 3000 ml Balance -1525 ml Capillary Refill : General Appearance: Mild Distress Neck: Supple Respiratory: Crackles Cardiovascular: Regular Rate, Rhythm Gastrointestinal: soft, distended, tenderness Extremity: Non Tender, No Calf Tenderness, No Pedal Edema Neurologic/Psychiatric: Alert, Oriented x3 Results Lab Laboratory Tests 09/18/20 05:47: White Blood Count 6.0, Red Blood Count 5.02, Hemoglobin 12.6L, Hematocrit 39L, Mean Corpuscular Volume 79L, Mean Corpuscular Hemoglobin 25, Mean Corpuscular Hemoglobin Concent 32, Red Cell Distribution Width 14.6H, Platelet Count 240, Mean Platelet Volume 10.4, Sodium Level 139, Potassium Level 3.6, Chloride Level 106, Carbon Dioxide Level 21, Anion Gap 12, Blood Urea Nitrogen 10, Creatinine 1.09, Estimat Glomerular Filtration Rate > 60, BUN/Creatinine Ratio 9, Glucose Level 138H, Calcium Level 9.1, C-Reactive Protein High Sensitivity 2.65H Assessment/Plan Assessment/Plan Assess & Plan/Chief Complaint 1. Acute Diverticulitis/Colitis--continue IV zosyn and oral flagyl 2. Hypertension--restarted metoprolol 3. HypoxiaAtelectesis--on IS 4. Possible RLQ mass--Dr. Ramos prepping for colonoscopy tomorrow 5. Hepatomegaly--further evaluation as outpatient as well 6. Abdominal Distention/Ileus--continue docusate, ambulate 7. Pulmonary crackles--lasix with potassium now x1 Clinical Quality Measures Admission Status Admission Dx 1. Acute Diverticulitis/Colitis--admit for IVFs, gut rest, IV antibiotics, IV pain control, surgical consult, lovenox for DVT prophylaxis 2. Hepatomegaly with nodularity--discussed further workup once over this acute episode 3. Hypertension--BP currently stable with no meds 4. COPD--resume inhalers 5. History of CAD--stable YEIN RUVALCABA DO Sep 18, 2020 12:47
[2020-09-18 16:04] VITALS: BP 176/93
[2020-09-18 19:23] VITALS: BP 141/69
[2020-09-18] MEDS: traZODone 50 MG (DESYREL) TAB PO PRN (21:30)
[2020-09-19] VITALS (12 sets, daily range): BP systolic 112–169; BP diastolic 58–91
[2020-09-19] MEDS: RT-ALBUTEROL INHALER HFA (VENTOLIN HFA) 18 GM IH SCH ×6 (01:38→21:53)
[2020-09-19] MEDS: PIPERACILLIN/TAZOBACTAM (BULK) 4.5 GM in NS (IVPB) 100 ML IV SCH ×3 (02:05→17:09)
[2020-09-19] MEDS: NS IV 1000 ML 1,000 ML IV SCH ×2 (03:56→05:59)
[2020-09-19] MEDS: metroNIDAZOLE 500 MG (FLAGYL) TAB PO SCH ×3 (05:00→20:02)
[2020-09-19] MEDS: LEVOTHYROXINE 25 MCG (LEVOTHROID) TAB PO SCH (05:00)
[2020-09-19 05:50] LABS: BASOPHILS % (AUTO) 2 % (0-10); EOSINOPHILS # (AUTO) 0.2 10^3/uL (0.0-0.3); EOSINOPHILS % (AUTO) 10 % (0-10); HEMATOCRIT 27 % (40-54); HEMOGLOBIN 9.2 g/dL (13.3-17.7); LYMPHOCYTES # (AUTO) 0.7 10^3/uL (1.0-4.0); LYMPHOCYTES % (AUTO) 28 % (12-44); MEAN CORPUSCULAR HEMOGLOBIN 32 pg (25-34); MEAN CORPUSCULAR HGB CONC 34 g/dL (32-36); MEAN CORPUSCULAR VOLUME 94 fL (80-99); MONOCYTES # (AUTO) 0.5 10^3/uL (0.0-1.0); MONOCYTES % (AUTO) 19 % (0-12); NEUTROPHILS % (AUTO) 40 % (42-75); PLATELET COUNT 153 10^3/uL (130-400); WHITE BLOOD COUNT 2.4 10^3/uL (4.3-11.0)
[2020-09-19 05:55] LABS: CHLORIDE 105 MMOL/L (98-107); POTASSIUM 3.4 MMOL/L (3.6-5.0); SODIUM 138 MMOL/L (135-145)
[2020-09-19 05:56] LABS: CALCIUM 8.9 MG/DL (8.5-10.1); GLUCOSE 116 MG/DL (70-105)
[2020-09-19 05:58] LABS: CARBON DIOXIDE 21 MMOL/L (21-32)
[2020-09-19 06:00] LABS: CREATININE SERUM 1.11 MG/DL (0.60-1.30); GFR ESTIMATED > 60
[2020-09-19 06:01] LABS: BUN/CREATININE RATIO 10
--- NOTE | 2020-09-19 07:21 | Progress Note - Surgery ---
KVNG GARZA,MED STUDENT 09/19/20 0721: Subjective Date Seen by a Provider: Sep 19, 2020 Time Seen by a Provider: 06:40 Subjective/Events-last exam Pt seen and examined this morning. Planning for lower scope today. Having loose BMs from enemas- appear brown and liquidy. Thinks abdominal distension is similar to yesterday. Denies abdominal pain, fever, chills or chest pain. Reports SOB similar to his baseline Review of Systems General: No Chills, No Fatigue Pulmonary: Dyspnea; No Cough Cardiovascular: No: Chest Pain Gastrointestinal: Diarrhea, Other (abdominal distension); No: Nausea, Vomiting, Abdominal Pain Neurological: No: Weakness, Confusion Objective Exam Vital Signs Date Time Temp Pulse Resp B/P (MAP) Pulse Ox O2 Delivery O2 Flow Rate FiO2 09/19/20 04:50 36.8 85 18 140/88 (105) 94 Nasal Cannula 2.00 09/19/20 01:38 93 Nasal Cannula 3.00 09/19/20 00:13 36.9 89 18 157/84 (108) 91 Nasal Cannula 2.00 09/18/20 20:00 90 Nasal Cannula 2.00 09/18/20 19:23 36.6 87 20 141/69 (93) 90 Nasal Cannula 2.00 09/18/20 18:08 93 Nasal Cannula 3.00 09/18/20 16:04 36.4 90 20 176/93 (120) 92 Nasal Cannula 2.00 09/18/20 15:25 90 Nasal Cannula 3.00 09/18/20 12:00 36.2 86 20 162/79 (106) 93 Nasal Cannula 2.00 2.00 09/18/20 10:31 92 Nasal Cannula 3.00 09/18/20 08:00 92 Nasal Cannula 3.00 09/18/20 07:35 37.0 96 20 135/81 (99) 94 Nasal Cannula 3.00 3.00 I & O 09/19/20 07:00 Intake Total 990 ml Output Total 1600 ml Balance -610 ml Capillary Refill : General Appearance: No Apparent Distress, WD/WN, Obese HEENT: PERRL/EOMI, Moist Mucous Membranes Respiratory: No Accessory Muscle Use, No Respiratory Distress, Crackles (RLL), Decreased Breath Sounds (at bases) Cardiovascular: Regular Rate, Rhythm, No Murmur Peripheral Pulses: 2+ Dorsalis Pedis (R), 2+ Left Dors-Pedis (L), 2+ Radial Pulses (R), 2+ Radial Pulses (L) Gastrointestinal: distended (firm), tenderness (minimal with palpation all over) Extremity: Non Tender, No Pedal Edema Neurologic/Psychiatric: Alert, Oriented x3, Normal Mood/Affect Skin: Normal Color, Warm/Dry Results Lab Laboratory Tests 09/18/20 21:35: 09/19/20 05:30: White Blood Count 2.4L, Red Blood Count 2.89L, Hemoglobin 9.2#L, Hematocrit 27L, Mean Corpuscular Volume 94, Mean Corpuscular Hemoglobin 32, Mean Corpuscular Hemoglobin Concent 34, Red Cell Distribution Width 15.5H, Platelet Count 153, Mean Platelet Volume 11.0, Immature Granulocyte % (Auto) 1, Neutrophils (%) (Auto) 40L, Lymphocytes (%) (Auto) 28, Monocytes (%) (Auto) 19H, Eosinophils (%) (Auto) 10, Basophils (%) (Auto) 2, Neutrophils # (Auto) 1.0L, Lymphocytes # (Auto) 0.7L, Monocytes # (Auto) 0.5, Eosinophils # (Auto) 0.2, Basophils # (Auto) 0.0, Immature Granulocyte # (Auto) 0.0, Sodium Level 138, Potassium Level 3.4L, Chloride Level 105, Carbon Dioxide Level 21, Anion Gap 12, Blood Urea Nitrogen 11, Creatinine 1.11, Estimat Glomerular Filtration Rate > 60, BUN/Creatinine Ratio 10, Glucose Level 116H, Calcium Level 8.9 Assessment/Plan Assessment/Plan Assessment/Plan PSBO - secondary 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 colitis vs appendicitis Hypokalemia, K 3.4 this AM CAD DM HTN Replace K NPO, Plan for colonoscopy with biopsy today SBFT if unable to get to R side of colon Encourage IS and ambulation OSMIN RAMOS DO 09/19/20 1631: Subjective Time Seen by a Provider: 16:08 Subjective/Events-last exam Pt seen and examined, doing well after Colonoscopy from this am. States he still has distended abdomen. Review of Systems General: No Chills, No Fatigue Pulmonary: Dyspnea; No Cough Cardiovascular: No: Chest Pain, Edema Gastrointestinal: Diarrhea, Other (abdominal distension); No: Nausea, Vomiting, Abdominal Pain Objective Exam General Appearance: No Apparent Distress, Obese HEENT: Moist Mucous Membranes; No Scleral Icterus (L), No Scleral Icterus (R) Respiratory: No Accessory Muscle Use, No Respiratory Distress, Crackles (RLL), Decreased Breath Sounds (at bases) Cardiovascular: Regular Rate, Rhythm, No Murmur Gastrointestinal: no organomegaly, distended (firm), tenderness (minimal with palpation all over) Extremity: No Pedal Edema Neurologic/Psychiatric: Alert, Oriented x3, Normal Mood/Affect Skin: Normal Color, Warm/Dry Assessment/Plan Assessment/Plan Assessment/Plan 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 It is not emergent, but should also not wait to long to do this. I told him that Dr. Dailey can do this when he gets back or if he doesn't want to wait, I would be happy to do surgery. He is going to need a right jesse-colectomy with primary anastomosis. This can be done Laparoscopically with hand assist. I told him to think about it and I would be happy to answer all their questions tomorrow. Supervisory-Addendum Brief Verification & Attestation Participated in pt care: history, MDM, physical Personally performed: exam, history, MDM Care discussed with: Medical Student Procedures: n/a Verification and Attestation of Medical Student E/M Service A medical student performed and documented this service. I then reviewed and v erified all information documented by the medical student and made modifications to such information, when appropriate. I personally performed a physical exam, medical decision making and then discussed any differences between the notes and made revisions as necessary to create one note. Osmin Ramos , 09/19/20 , 16:32 KVNG GARZA,MED STUDENT Sep 19, 2020 07:21 OSMIN RAMOS DO Sep 19, 2020 16:31
[2020-09-19] MEDS: PANTOPRAZOLE 40 MG (PROTONIX) VIAL IV SCH (07:52)
[2020-09-19] MEDS: DOCUSATE SODIUM 100 MG (COLACE) CAP PO SCH ×2 (07:52→20:02)
--- NOTE | 2020-09-19 09:45 | Progress Note ---
Subjective Date Seen by a Provider: Sep 19, 2020 Time Seen by a Provider: 09:37 Subjective/Events-last exam Fwup acute diverticulitis/colitis/possible right lower quadrant mass, HTN, ileus. Pain is under control now but still distended/bloated and spitting/coughing up phlegm. Objective Exam Vital Signs Date Time Temp Pulse Resp B/P (MAP) Pulse Ox O2 Delivery O2 Flow Rate FiO2 09/19/20 08:21 36.8 90 18 169/75 (106) 92 Nasal Cannula 2.00 09/19/20 08:03 Nasal Cannula 2.00 09/19/20 07:19 92 Nasal Cannula 3.00 09/19/20 04:50 36.8 85 18 140/88 (105) 94 Nasal Cannula 2.00 09/19/20 01:38 93 Nasal Cannula 3.00 09/19/20 00:13 36.9 89 18 157/84 (108) 91 Nasal Cannula 2.00 09/18/20 20:00 90 Nasal Cannula 2.00 09/18/20 19:23 36.6 87 20 141/69 (93) 90 Nasal Cannula 2.00 09/18/20 18:08 93 Nasal Cannula 3.00 09/18/20 16:04 36.4 90 20 176/93 (120) 92 Nasal Cannula 2.00 09/18/20 15:25 90 Nasal Cannula 3.00 09/18/20 12:00 36.2 86 20 162/79 (106) 93 Nasal Cannula 2.00 2.00 09/18/20 10:31 92 Nasal Cannula 3.00 I & O 09/19/20 07:00 Intake Total 990 ml Output Total 1600 ml Balance -610 ml Capillary Refill : General Appearance: Mild Distress Neck: Supple Respiratory: Decreased Breath Sounds Cardiovascular: Regular Rate, Rhythm, Systolic Murmur Gastrointestinal: non tender, abnormal bowel sounds, distended Extremity: Non Tender, No Calf Tenderness, No Pedal Edema Neurologic/Psychiatric: Alert, Oriented x3 Skin: Warm/Dry Results Lab Laboratory Tests 09/18/20 21:35: 09/19/20 05:30: White Blood Count 2.4L, Red Blood Count 2.89L, Hemoglobin 9.2#L, Hematocrit 27L, Mean Corpuscular Volume 94, Mean Corpuscular Hemoglobin 32, Mean Corpuscular Hemoglobin Concent 34, Red Cell Distribution Width 15.5H, Platelet Count 153, Mean Platelet Volume 11.0, Immature Granulocyte % (Auto) 1, Neutrophils (%) (Auto) 40L, Lymphocytes (%) (Auto) 28, Monocytes (%) (Auto) 19H, Eosinophils (%) (Auto) 10, Basophils (%) (Auto) 2, Neutrophils # (Auto) 1.0L, Lymphocytes # (Auto) 0.7L, Monocytes # (Auto) 0.5, Eosinophils # (Auto) 0.2, Basophils # (Auto) 0.0, Immature Granulocyte # (Auto) 0.0, Sodium Level 138, Potassium Level 3.4L, Chloride Level 105, Carbon Dioxide Level 21, Anion Gap 12, Blood Urea Nitrogen 11, Creatinine 1.11, Estimat Glomerular Filtration Rate > 60, BUN/Creatinine Ratio 10, Glucose Level 116H, Calcium Level 8.9 Assessment/Plan Assessment/Plan Assess & Plan/Chief Complaint 1. Acute Diverticulitis/Colitis--continue IV zosyn and oral flagyl 2. Hypertension--restarted metoprolol 3. HypoxiaAtelectesis--on IS 4. Possible RLQ mass--colonoscopy today 5. Hepatomegaly--further evaluation as outpatient pending colonoscopy results 6. Abdominal Distention/Ileus--continue docusate, ambulate 7. Hypokalemia--IV K replacement since is NPO 8. Neutropenia/Anemia--Will DC flagyl since has had full 7 day course and continue with zosyn and repeat CBC in AM, has been on lovenox for DVT prophylaxis and did do colonoscopy prep so will recheck H/H in AM Clinical Quality Measures Admission Status Admission Dx 1. Acute Diverticulitis/Colitis--admit for IVFs, gut rest, IV antibiotics, IV pain control, surgical consult, lovenox for DVT prophylaxis 2. Hepatomegaly with nodularity--discussed further workup once over this acute episode 3. Hypertension--BP currently stable with no meds 4. COPD--resume inhalers 5. History of CAD--stable YENI RUVALCABA DO Sep 19, 2020 09:45
[2020-09-19] MEDS: POTASSIUM CL 10MEQ/50ML IVPB 50 ML IV SCH ×2 (09:51→11:19)
[2020-09-19] MEDS: ENOXAPARIN 40 MG/0.4 ML (LOVENOX) SYR SC SCH (11:23)
[2020-09-19] MEDS ORDERED: PROPOFOL INJECTION 50 ML IV ONE (11:52)
[2020-09-19] MEDS ORDERED: LACTATED RINGERS 1,000 ML IV STA (11:54)
[2020-09-19] MEDS ORDERED: LACTATED RINGERS 1,000 ML IV ONE (11:59)
[2020-09-19] MEDS ORDERED: MIDAZOLAM 2 MG/2 ML (VERSED) VIAL ONE (12:15)
--- NOTE | 2020-09-19 13:44 | Anesthesia-General Post-Op ---
MAC Patient Condition Mental Status/LOC: Same as Preop Cardiovascular: Satisfactory Nausea/Vomiting: Absent Respiratory: Satisfactory Pain: Controlled Complications: Absent Post Op Complications Complications None Follow Up Care/Instructions Patient Instructions None needed. Anesthesiology Discharge Order Discharge Order Patient is doing well, no complaints, stable vital signs, no apparent adverse anesthesia problems. VALENTINO SANTANA DO Sep 19, 2020 13:44
[2020-09-19] MEDS: fentaNYL INJECTION 100 MCG/2 ML AMP IVP PRN ×2 (15:47→22:07)
--- NOTE | 2020-09-19 23:17 | OPERATIVE REPORT ---
DATE OF SERVICE: PREOPERATIVE DIAGNOSIS: Partial small-bowel obstruction secondary to cecal mass versus ileocecal mass or the terminal ileum mass. PROCEDURE: Colonoscopy with snare polypectomy as well as colonoscopy with hot biopsy. SURGEON: Osmin Ramos DO MANUFACTURING CHIEF ENGINEER: Indigo Melendez MS4. ANESTHESIA: IV sedation by the anesthesiologist. SPECIMEN: Cecal mass biopsy x3. Then there was a biopsy done just outside the cecum, transverse colon polyp and a descending colon polyp were also removed. BLOOD LOSS: Scant. FLUIDS: Per anesthesia. POSTOPERATIVE CONDITION: Stable. INDICATION FOR PROCEDURE: The patient is a 64-year-old male who initially presented with a partial small-bowel obstruction and a CAT scan showed what looked like a possible mass effect either from diverticulitis, colitis or a mass. It was in the cecal and terminal ileum area. The patient was basically not progressing and needed a colonoscopy to view this area. FINDINGS: The patient unfortunately had a large cecal mass with extension of this mass outside of cecum looked like it was right at the ileocecal valve. He also had polyps, diverticula and some internal hemorrhoids. PROCEDURE NOTE: After informed consent was obtained, the patient was brought to the endoscopy suite, placed in bed in left lateral decubitus position. He was administered IV sedation by the anesthesiologist who then monitored his vitals the entire time, heart rate, blood pressure and pulse ox and the scope was inserted. On the way in, noted diverticula, able to get to the cecum and then just outside the cecum, could see what looked like a mass, took a picture and then pushed in and then appeared to be a mass involving the ileocecal valve, took a picture of this and then did biopsies. Three hot biopsies were performed and then pulled back just outside the cecum and did a biopsy of the masses outside the cecum. At this point, then withdrew the scope slowly insufflating the circumferential marie looking at the cecum and ascending colon up to the hepatic flexure, then down the transverse colon where we saw another polyp. This was on a pedunculated polyp. Elected to do a snare polypectomy to remove this completely and then continued down to the splenic flexure, into the descending colon. In the descending colon, saw another large polyp again pedunculated and elected to remove this with another snare polypectomy, continued down into the sigmoid and finally into the rectum. There were some small polyps in the rectum and then retroflexed in rectal vault, saw some internal hemorrhoids, took a picture of this. The scope was then removed. The patient tolerated the procedure and he was recovered in endoscopy suite. Job ID: [id number] DocumentID: [id number] Dictated Date: 09/19/2020 17:41:41 Clinical Dietitian Date: 09/19/2020 23:16:37 Dictated By: OSMIN RAMOS DO
[2020-09-19] MEDS: traZODone 50 MG (DESYREL) TAB PO PRN (23:56)
[2020-09-20] VITALS (14 sets, daily range): BP systolic 98–149; BP diastolic 61–82
[2020-09-20] MEDS: RT-ALBUTEROL INHALER HFA (VENTOLIN HFA) 18 GM IH SCH ×6 (02:00→21:34)
[2020-09-20] MEDS: PIPERACILLIN/TAZOBACTAM (BULK) 4.5 GM in NS (IVPB) 100 ML IV SCH ×3 (02:29→17:45)
[2020-09-20] MEDS: metroNIDAZOLE 500 MG (FLAGYL) TAB PO SCH (04:35)
[2020-09-20] MEDS: LEVOTHYROXINE 25 MCG (LEVOTHROID) TAB PO SCH (04:35)
[2020-09-20 05:17] LABS: HEMOGLOBIN 11.9 g/dL (13.3-17.7); MEAN PLATELET VOLUME 9.8 fL (9.0-12.2); WHITE BLOOD COUNT 6.1 10^3/uL (4.3-11.0)
[2020-09-20 05:32] LABS: ALBUMIN 3.3 GM/DL (3.2-4.5); CHLORIDE 108 MMOL/L (98-107); POTASSIUM 3.2 MMOL/L (3.6-5.0); SODIUM 139 MMOL/L (135-145)
[2020-09-20 05:33] LABS: CALCIUM 8.6 MG/DL (8.5-10.1)
[2020-09-20 05:34] LABS: GLUCOSE 89 MG/DL (70-105); TOTAL PROTEIN 6.7 GM/DL (6.4-8.2)
[2020-09-20 05:35] LABS: CARBON DIOXIDE 20 MMOL/L (21-32)
[2020-09-20 05:36] LABS: BILIRUBIN,TOTAL 0.4 MG/DL (0.1-1.0)
[2020-09-20 05:38] LABS: ALKALINE PHOSPHATASE 52 U/L (40-136); CREATININE SERUM 1.01 MG/DL (0.60-1.30); GFR ESTIMATED > 60
[2020-09-20 05:39] LABS: BUN/CREATININE RATIO 9
[2020-09-20 05:41] LABS: ALANINE AMINOTRANSFERASE 18 U/L (0-55)
[2020-09-20] MEDS: PANTOPRAZOLE 40 MG (PROTONIX) VIAL IV SCH (08:02)
[2020-09-20] MEDS: NS IV 1000 ML 1,000 ML IV SCH ×2 (08:02→20:21)
--- NOTE | 2020-09-20 08:16 | Progress Note - Surgery ---
SUKHDEEP ESCOBAR MED STUDENT 09/20/20 0815: Subjective Date Seen by a Provider: Sep 20, 2020 Time Seen by a Provider: 08:11 Subjective/Events-last exam Pt awake and in bed upon entry. Pt states he is doing well. Notes pain in lower abdomen especially when coughing. 10/10 pain last night that was relieved with pain medication. Pt does have questions/ statements including will you take the polyps out and tell him you have the BRAC gene. No other acute events over night. Review of Systems General: No Chills, No Fatigue HEENT: No Head Aches, No Dysphasia Pulmonary: Dyspnea, Cough Cardiovascular: No: Chest Pain, Palpitations Gastrointestinal: Abdominal Pain (LLQ/ RLQ); No: Nausea, Vomiting Genitourinary: No Dysuria, No Hematuria Musculoskeletal: No: back pain, leg pain Neurological: Numbness; No: Weakness Objective Exam Vital Signs Date Time Temp Pulse Resp B/P (MAP) Pulse Ox O2 Delivery O2 Flow Rate FiO2 09/20/20 08:04 36.5 74 22 149/79 (102) 93 Nasal Cannula 3.50 09/20/20 04:00 36.1 73 20 130/78 (95) 93 Nasal Cannula 2.00 09/20/20 02:01 92 Nasal Cannula 3.00 09/20/20 00:00 36.2 85 22 146/82 (103) 93 Nasal Cannula 2.00 09/19/20 21:53 89 Nasal Cannula 2.00 09/19/20 20:00 92 Nasal Cannula 2.00 09/19/20 19:13 36.8 88 20 147/81 (103) 92 Nasal Cannula 2.00 09/19/20 18:52 94 Nasal Cannula 1.00 09/19/20 15:36 36.4 88 20 140/74 (96) 91 Nasal Cannula 1.00 09/19/20 14:25 87 Nasal Cannula 1.00 09/19/20 13:53 37.0 82 20 137/91 (106) 92 Room Air 1.00 09/19/20 13:10 86 20 97 Room Air 09/19/20 13:05 81 20 100 Room Air 09/19/20 13:00 79 16 100 OxyMask 5 09/19/20 12:55 80 16 99 OxyMask 5 09/19/20 12:50 80 20 100 OxyMask 10 09/19/20 12:45 82 16 98 OxyMask 10 09/19/20 10:23 94 Nasal Cannula 2.00 09/19/20 08:21 36.8 90 18 169/75 (106) 92 Nasal Cannula 2.00 I & O 09/20/20 07:00 Intake Total 1110 ml Output Total 375 ml Balance 735 ml Capillary Refill : General Appearance: No Apparent Distress, Obese HEENT: PERRL/EOMI, Moist Mucous Membranes; No Scleral Icterus (L), No Scleral Icterus (R) Neck: Normal Inspection (cervical, ), Non Tender, Supple Respiratory: Chest Non Tender, No Accessory Muscle Use, No Respiratory Distres s, Crackles (RLL), Decreased Breath Sounds (at bases- improving) Cardiovascular: Regular Rate, Rhythm, No Murmur, Normal Peripheral Pulses Peripheral Pulses: 2+ Dorsalis Pedis (R), 2+ Left Dors-Pedis (L), 2+ Radial Pulses (R), 2+ Radial Pulses (L) Gastrointestinal: non tender, no organomegaly, abnormal bowel sounds ( decreased), distended (firm) Extremity: Normal Inspection, Non Tender, No Calf Tenderness, No Pedal Edema Neurologic/Psychiatric: Alert, Oriented x3, No Motor/Sensory Deficits, Normal Mood/Affect Skin: Normal Color, Warm/Dry Lymphatic: No Adenopathy (cervical, supraclavicular, axillary) Results Lab Laboratory Tests 09/19/20 12:02: Glucometer 92 09/20/20 04:55: White Blood Count 6.1, Red Blood Count 4.72, Hemoglobin 11.9#L, Hematocrit 37L, Mean Corpuscular Volume 78L, Mean Corpuscular Hemoglobin 25, Mean Corpuscular Hemoglobin Concent 32, Red Cell Distribution Width 14.9H, Platelet Count 216, Mean Platelet Volume 9.8, Sodium Level 139, Potassium Level 3.2L, Chloride Level 108H, Carbon Dioxide Level 20L, Anion Gap 11, Blood Urea Nitrogen 9, Creatinine 1.01, Estimat Glomerular Filtration Rate > 60, BUN/Creatinine Ratio 9, Glucose Level 89, Calcium Level 8.6, Corrected Calcium 9.2, Total Bilirubin 0.4, Aspartate Amino Transf (AST/SGOT) 19, Alanine Aminotransferase (ALT/SGPT) 18, Al kaline Phosphatase 52, Total Protein 6.7, Albumin 3.3 Microbiology 09/18/20 MRSA Screen - Final, Complete MRSA not isolated Assessment/Plan Assessment/Plan Assessment/Plan 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 He had questions about surgery. Mild pain in abdomen with coughing. Review of Systems General: No Chills HEENT: No Head Aches Pulmonary: Dyspnea, Cough Cardiovascular: No: Chest Pain, Palpitations Gastrointestinal: Abdominal Pain (LLQ/ RLQ); No: Nausea, Vomiting Genitourinary: No Dysuria Objective Exam General Appearance: No Apparent Distress, Obese HEENT: Moist Mucous Membranes Respiratory: No Accessory Muscle Use, No Respiratory Distress, Crackles (RLL), Decreased Breath Sounds (at bases- improving) Cardiovascular: Regular Rate, Rhythm, No Murmur Gastrointestinal: non tender, no organomegaly, abnormal bowel sounds (decreased), distended (firm) Assessment/Plan Assessment/Plan Assessment/Plan 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 Plan is for Laparoscopic Hand assisted right colon resection possible open. Discussed risks and complications with pt; not limited to pain, bleeding, infection, scar, damage to bowel and need for further procedure. Supervisory-Addendum Brief Verification & Attestation Participated in pt care: history, MDM, physical Personally performed: exam, history, MDM Care discussed with: Medical Student Procedures: n/a Verification and Attestation of Medical Student E/M Service A medical student performed and documented this service. I then reviewed and verified all information documented by the medical student and made modifications to such information, when appropriate. I personally performed a physical exam, medical decision making and then discussed any differences b etween the notes and made revisions as necessary to create one note. Bebe Ramos , 09/20/20 , 14:21 SUKHDEEP ESCOBAR MED STUDENT Sep 20, 2020 08:15 BEBE RAMOS DO Sep 20, 2020 14:21
[2020-09-20] MEDS: DOCUSATE SODIUM 100 MG (COLACE) CAP PO SCH ×2 (08:50→22:52)
[2020-09-20] MEDS: ENOXAPARIN 40 MG/0.4 ML (LOVENOX) SYR SC SCH (11:04)
--- NOTE | 2020-09-20 11:05 | Progress Note - Hospitalist ---
Subjective HPI/CC On Admission Date Seen by Provider: Sep 20, 2020 Time Seen by Provider: 10:58 Subjective/Events-last exam Pt reports doing ok but very anxious about the results of his colonoscopy and possible need for surgery. Has many questions about this that he plans to talk to Dr Ramos about. Objective Exam Vital Signs Vital Signs Date Time Temp Pulse Resp B/P (MAP) Pulse Ox O2 Delivery O2 Flow Rate FiO2 09/20/20 08:17 93 Nasal Cannula 3.00 09/20/20 08:04 36.5 74 22 149/79 (102) Capillary Refill : General Appearance: No Apparent Distress, Anxious Respiratory: Lungs Clear, No Respiratory Distress Cardiovascular: Regular Rate, Rhythm, No Murmur Gastrointestinal: Non Tender, Soft, Distended (mild) Extremity: Normal Capillary Refill, No Calf Tenderness, No Pedal Edema Neurologic/Psychiatric: Alert, Oriented x3 Results/Procedures Lab Laboratory Tests 09/20/20 04:55 Patient resulted labs reviewed. Assessment/Plan Assessment and Plan Assess & Plan/Chief Complaint 1. Acute Diverticulitis/Colitis--continue IV zosyn, completed course of Flagyl, continue pain regimen 2. Hypertension--relatively well controlled for in hospital parameters, continue Metoprolol 3. HypoxiaAtelectesis--on IS, wean oxygen as able 4. Possible RLQ mass--s/p colonoscopy and path is pending, defer further management to Dr Ramos 5. Hepatomegaly--further evaluation as outpatient pending colonoscopy results, CT reveals fatty infiltration 6. Abdominal Distention/Ileus--continue docusate, ambulate, passing gas 7. Hypokalemia--IV K replacement again today, will add Mag level on 8. Neutropenia/Anemia--Improved this morning, yesterdays labs are likely lab error or dilutional as today and 09/18 are nearly identical 9. Hypothyroidism- continue home meds 10. Insomnia- Continue Trazodone 11. DVT ppx: DAJUAN Peters MD Sep 20, 2020 11:05
[2020-09-20] MEDS: POTASSIUM CL 10MEQ/50ML IVPB 50 ML IV SCH ×2 (11:25→11:26)
[2020-09-20] MEDS ORDERED: SEVOFLURANE (ULTANE) 15 ML INHAL SOLN ONE ×9 (11:30→14:42)
[2020-09-20] MEDS ORDERED: LIDOCAINE PF 2% 5 ML (XYLOCAINE) VIAL ONE (11:30)
[2020-09-20] MEDS ORDERED: proPOfol 200 MG/20 ML (DIPRIVAN) VIAL IV ONE (11:30)
[2020-09-20] MEDS ORDERED: LIDOCAINE/EPI 1%-1:100,000 (XYLOCAINE) 50 ML ONE (11:31)
[2020-09-20] MEDS ORDERED: fentaNYL INJECTION 100 MCG/2 ML AMP ONE ×2 (11:32→12:38)
[2020-09-20] MEDS ORDERED: MIDAZOLAM 2 MG/2 ML (VERSED) VIAL ONE (11:32)
[2020-09-20] MEDS: LACTATED RINGERS 1,000 ML IV PRN ×2 (12:05→14:08)
[2020-09-20] MEDS ORDERED: BUPIVACAINE 0.5% 30 ML (SENSORCAINE) VIAL ONE (12:35)
[2020-09-20] MEDS ORDERED: GLYCOPYRROLATE 0.2 MG/ML (ROBINUL) 2 ML VIAL ONE (12:35)
[2020-09-20] MEDS ORDERED: ROCURONIUM 10 MG/ML 5 ML SYRINGE IV ONE ×2 (12:35→14:01)
[2020-09-20] MEDS ORDERED: NEOSTIGMINE 3 MG/3 ML VIAL ONE (12:35)
[2020-09-20] MEDS ORDERED: ONDANSETRON 4 MG/2 ML (SDV) Z0FRAN ONE (12:36)
--- NOTE | 2020-09-20 14:23 | Progress Note-Post Operative ---
Post-Operative Progess Note Surgeon (s)/Mechanical Maintenance Worker (s) Surgeon BEBE MARTIN DO Mechanical Maintenance Worker: Sharifa Pre-Operative Diagnosis Near obstructing colon mass Post-Operative Diagnosis same pending path Procedure & Operative Findings Date of Procedure 09/20/20 Procedure Performed/Findings Extended Right hemicolectomy with partial Omentectomy Manual Decompression of small bowel Anesthesia Type GET Estimated Blood Loss Estimated blood loss (mL): 200ml Specimens/Packing Specimens Removed portion of TI, right colon, portion of transverse colon, portion of omentum more than half BEBE MARTIN DO Sep 20, 2020 14:23
[2020-09-20] MEDS ORDERED: morphine INJ 10 MG/ML 1ML (SYR OR VIAL) IVP PRN (14:30)
[2020-09-20] MEDS ORDERED: morphine INJ 10 MG/ML 1ML (SYR OR VIAL) IVP ONE (15:00)
[2020-09-20] MEDS ORDERED: fentaNYL INJECTION 100 MCG/2 ML AMP IVP ONE (15:00)
[2020-09-20] MEDS ORDERED: ONDANSETRON 4 MG/2 ML (SDV) Z0FRAN IVP PRN (15:00)
--- NOTE | 2020-09-20 15:46 | Anesthesia-General Post-Op ---
General Patient Condition Mental Status/LOC: Same as Preop Cardiovascular: Satisfactory Nausea/Vomiting: Absent Respiratory: Satisfactory Pain: Controlled Complications: Absent Post Op Complications Complications None Follow Up Care/Instructions Patient Instructions None needed. Anesthesia/Patient Condition Patient Condition Patient is doing well, no complaints, stable vital signs, no apparent adverse anesthesia problems. No complications reported per nursing. MICHAEL PACK CRNA Sep 20, 2020 15:46
[2020-09-20] MEDS: ACETAMINOPHEN 500 MG TAB (TYLENOL) PO SCH ×2 (16:05→22:51)
[2020-09-20] MEDS: metroNIDAZOLE 500MG/100ML IVPB 100 ML IV SCH ×2 (16:05→22:52)
[2020-09-20] MEDS: KETOROLAC 30 MG/ML VIAL IVP SCH ×2 (16:05→20:16)
[2020-09-20] MEDS: LACTATED RINGERS 1,000 ML IV SCH ×2 (16:06→20:17)
--- NOTE | 2020-09-20 18:38 | OPERATIVE REPORT ---
DATE OF SERVICE: PREOPERATIVE DIAGNOSIS: Near obstructing cecal colon mass. POSTOPERATIVE DIAGNOSES: Near obstructing cecal colon mass plus what looked like peritoneal carcinomatosis and mass in the omentum. PROCEDURES: 1. Right extended hemicolectomy. 2. Partial omentectomy. 3. Manual decompression of the small bowel. SURGEON: Bebe Ramos DO GUARD SERGEANT: Troy Skaggs DO. ANESTHESIA: General endotracheal tube. SPECIMEN: Portion of terminal ileum all the right colon and portion of transverse colon as well as then more than half of the omentum. BLOOD LOSS: Approximately 200 mL. FLUIDS: Per anesthesia. POSTOPERATIVE CONDITION: Stable. INDICATION FOR PROCEDURE: The patient is a 64-year-old male, who came in with abdominal pain, distention, had what looked like either colitis or mass causing at least a partial small-bowel obstruction. Colonoscopy performed showed what looked like a tumor in the right colon and it was near obstructing, felt it was best to remove this. FINDINGS: The patient had a large mass in the omentum, he had a very distended small bowel secondary to this near obstructing lesion and he had what felt like peritoneal carcinomatosis, all of this sent to pathology. PROCEDURE NOTE: After informed consent was obtained, the patient was brought to the operating room. His belly was very distended. The plan was to try a laparoscopic hand-assisted right colon resection. Unfortunately, his intestine was too distended, so elected to had first made an incision from just above the umbilicus to below the umbilicus, but once we entered realized that this was not going to work and it extended the incision superiorly and inferiorly with Bovie electrocautery, been able to bluntly in the abdomen, right in the midline and then protect the bowel with my hand as we opened the fascia superiorly and inferiorly. Once this was done, then we placed an Omni retractor to hold open this incision unfortunately, we could feel what felt like peritoneal carcinomatosis and what felt like tumor around the right colon as well as also stuck down in the right pelvic area. The small bowel was very distended, elected to transect the terminal ileum, made a defect in the mesentery with Bovie electrocautery as well as blunt dissection and then placed a SRI-75 across here, clamped and fired, thereby transecting and then brought this portion of terminal ileum out of the abdomen and then made a small incision with Bovie electrocautery and then from the ligament of Treitz started milking the fluid all the way out through the small intestine to be able to decompress it got out almost 3 liters of feculent material. Once this was done, able to then close this hole with a 3-0 Vicryl pop-offs, 2 pop-offs used, placed this into the abdomen, then could feel large mass in the omentum, came across the omentum probably just lateral to the midline on the left side and then started taking this off and then found an area of bowel that felt good in the transverse colon, made a defect in the mesentery with blunt dissection as well as with Bovie electrocautery and then placed a SRI 100 across here, clamped and fired, thereby transecting and then started coming across taking at least half of the omentum with this portion of transverse colon, taking the mesentery with the LigaSure, clamping, coagulating and transecting, going down and around the hepatic flexure as well as then identifying the duodenum and stayed away from this, coming along the right pericolic gutter and freeing up the white line of Toldt. Unfortunately, down in the pelvic area, I felt like there was a tumor through the wall and what felt like peritoneal carcinomatosis. Continued along the white line of Toldt and then used some blunt dissection and then started coming from the terminal ileum across the mesentery with the LigaSure, clamping, coagulating and transecting down to this corner then used a little bit of blunt dissection and then Bovie electrocautery to continue taking this off. There did feel like there was some tumor in the mesentery, but we could not go lower, wanted to stay out of the retroperitoneum, came across the vessels, this was bleeding. Clamp this with a right angle and continued to take the specimen out using LigaSure, clamping, coagulating and transecting and the Bovie electrocautery. Finally, able to remove this portion of right colon with portion of terminal ileum and portion of transverse colon and more than half of the omentum passed this off table. Suture ligated the bleeding vessel with a 2-0 Vicryl pop-offs. At this point, I then copiously irrigated with warm normal saline, approximately 5 liters of warm normal saline, could feel some carcinomatosis in the pelvic area as well as some of the liver and may be a small 1 to 2 mm nodule on the liver palpated the stomach. NG tube was in good position. At this point, then elected to perform the anastomosis of the terminal ileum to the transverse colon, made a colotomy and enterotomy and used the SRI-75 clamped across here, used a 3-0 Vicryl to do a crotch stitch and then fired the SRI-75, thereby creating a [id number] functional end-to-end anastomosis and then used another SRI-75 reload to close the enterocolotomy. There was a little bit of bleeding. This was controlled with 3-0 Vicryl pop-off suture. Again, copiously irrigated with normal saline. There was no bleeding and at this time, then elected to close the incision, closing the incision with #1 double stranded PDS suture, one from the superior portion, one from the inferior portion running together and meet in the middle and then tying then copiously irrigated incisions with normal saline and then closed the skin with shimon. Area was cleaned and dried, dressing placed. The patient tolerated the procedure. Sponge, instrument and needle count correct at the end of the case. Dr. Skaggs assisted in this case helping to make incisions, close incisions, identify anatomy, hold anatomy out of the way. Job ID: [id number] DocumentID: [id number] Dictated Date: 09/20/2020 16:31:53 Lead Java Developer Architect Date: 09/20/2020 18:38:13 Dictated By: BEBE RAMOS DO [email or web address]
[2020-09-20] MEDS: fentaNYL INJECTION 100 MCG/2 ML AMP IVP PRN (21:08)
[2020-09-20] MEDS: traZODone 50 MG (DESYREL) TAB PO PRN (22:51)
[2020-09-21] VITALS (7 sets, daily range): BP systolic 115–128; BP diastolic 57–71
[2020-09-21] MEDS: PIPERACILLIN/TAZOBACTAM (BULK) 4.5 GM in NS (IVPB) 100 ML IV SCH ×3 (02:30→18:18)
[2020-09-21] MEDS: KETOROLAC 30 MG/ML VIAL IVP SCH ×4 (02:30→21:07)
[2020-09-21] MEDS: fentaNYL INJECTION 100 MCG/2 ML AMP IVP PRN ×2 (02:36→11:30)
[2020-09-21] MEDS: LACTATED RINGERS 1,000 ML IV SCH ×3 (03:49→14:23)
[2020-09-21] MEDS: ACETAMINOPHEN 500 MG TAB (TYLENOL) PO SCH ×3 (06:00→22:20)
[2020-09-21] MEDS: LEVOTHYROXINE 25 MCG (LEVOTHROID) TAB PO SCH (06:00)
[2020-09-21 06:08] LABS: MEAN PLATELET VOLUME 9.4 fL (9.0-12.2); WHITE BLOOD COUNT 7.4 10^3/uL (4.3-11.0)
[2020-09-21 06:19] LABS: CHLORIDE 109 MMOL/L (98-107); POTASSIUM 3.7 MMOL/L (3.6-5.0); SODIUM 140 MMOL/L (135-145)
[2020-09-21 06:20] LABS: CALCIUM 7.8 MG/DL (8.5-10.1)
[2020-09-21 06:21] LABS: GLUCOSE 113 MG/DL (70-105)
[2020-09-21 06:22] LABS: CARBON DIOXIDE 21 MMOL/L (21-32)
[2020-09-21 06:25] LABS: BUN/CREATININE RATIO 11; CREATININE SERUM 1.03 MG/DL (0.60-1.30); GFR ESTIMATED > 60
[2020-09-21] MEDS: RT-ALBUTEROL INHALER HFA (VENTOLIN HFA) 18 GM IH SCH ×5 (07:29→22:11)
[2020-09-21] MEDS: NS IV 1000 ML 1,000 ML IV SCH ×2 (07:44→22:19)
[2020-09-21] MEDS: DOCUSATE SODIUM 100 MG (COLACE) CAP PO SCH ×2 (08:32→21:07)
[2020-09-21] MEDS: PANTOPRAZOLE 40 MG (PROTONIX) VIAL IV SCH (08:33)
--- NOTE | 2020-09-21 10:07 | Progress Note - Surgery ---
SUKHDEEP ESCOBAR MED STUDENT 09/21/20 1007: Subjective Date Seen by a Provider: Sep 21, 2020 Time Seen by a Provider: 10:01 Subjective/Events-last exam Pt awake and in bed upon entry. Pt notes pain with coughing. Denies coughing up phlegm. Pain is under control. Denies BM or flatus. Pt right hand noticeably swollen compaired to left. NG tube in place, draining green fluid. at ~150 mL this morning. Review of Systems General: No Chills, No Night Sweats HEENT: No Head Aches; Sore Throat Pulmonary: No Dyspnea, No Cough Cardiovascular: No: Chest Pain, Palpitations Gastrointestinal: Abdominal Pain (From incision); No: Nausea, Vomiting Genitourinary: No Dysuria, No Hematuria Musculoskeletal: No: back pain, leg pain Neurological: No: Weakness, Numbness Objective Exam Vital Signs Date Time Temp Pulse Resp B/P (MAP) Pulse Ox O2 Delivery O2 Flow Rate FiO2 09/21/20 08:30 Nasal Cannula 2.00 09/21/20 08:00 Nasal Cannula 4.00 09/21/20 07:39 36.6 83 22 118/66 (83) 94 High Flow N/C 4.00 09/21/20 07:29 94 Nasal Cannula 4.00 09/21/20 03:53 36.2 85 20 115/58 (77) 94 High Flow N/C 3.50 09/21/20 02:36 85 Nasal Cannula 3.00 09/21/20 00:00 36.5 81 20 122/58 (79) 92 High Flow N/C 3.50 09/20/20 21:34 94 Nasal Cannula 3.00 09/20/20 20:15 Nasal Cannula 3.50 09/20/20 19:08 36.4 80 20 138/72 (94) 96 High Flow N/C 3.50 09/20/20 18:28 94 Nasal Cannula 3.00 09/20/20 16:06 36.6 74 22 144/70 (94) 94 Nasal Cannula 5.00 09/20/20 15:30 Nasal Cannula 5 09/20/20 15:30 36.4 20 133/70 (91) 95 Nasal Cannula 5 09/20/20 15:20 18 135/70 (91) 95 OxyMask 6 09/20/20 15:20 OxyMask 6 09/20/20 15:10 20 98/61 (73) 95 OxyMask 6 09/20/20 15:05 OxyMask 6 09/20/20 15:00 14 117/62 (80) 96 OxyMask 6 09/20/20 14:50 OxyMask 8 09/20/20 14:50 16 130/66 (87) 96 OxyMask 8 09/20/20 14:40 22 128/62 (84) 98 OxyMask 8 09/20/20 14:37 36.4 20 128/62 (84) 97 OxyMask 8 09/20/20 14:37 OxyMask 8 09/20/20 14:30 36.3 84 92 28 09/20/20 11:44 36.3 84 22 145/78 (100) 92 Nasal Cannula 3.50 09/20/20 10:56 92 Nasal Cannula 3.00 I & O 09/21/20 07:00 Intake Total 2320 ml Output Total 745 ml Balance 1575 ml Capillary Refill : Less Than 3 Seconds General Appearance: No Apparent Distress, Obese HEENT: PERRL/EOMI, Moist Mucous Membranes Neck: Normal Inspection, Non Tender, Supple Respiratory: No Accessory Muscle Use, No Respiratory Distress, Crackles (RLL), Decreased Breath Sounds (at bases- improving) Cardiovascular: Regular Rate, Rhythm, No Murmur Peripheral Pulses: 2+ Dorsalis Pedis (R), 2+ Left Dors-Pedis (L), 2+ Radial Pulses (R), 2+ Radial Pulses (L) Gastrointestinal: no organomegaly, abnormal bowel sounds (decreased), distended (firm), other (Midline incision tenderness without erythema or signs of infection) Extremity: Normal Capillary Refill, No Calf Tenderness, No Pedal Edema, Swelling (Right hand) Neurologic/Psychiatric: Alert, Oriented x3, No Motor/Sensory Deficits, Normal Mood/Affect Skin: Normal Color, Warm/Dry Lymphatic: No Adenopathy (cervical, supraclavicular, axillary) Results Lab Laboratory Tests 09/21/20 05:56: White Blood Count 7.4, Red Blood Count 4.39, Hemoglobin 11.0L, Hematocrit 36L, Mean Corpuscular Volume 81, Mean Corpuscular Hemoglobin 25, Mean Corpuscular Hemoglobin Concent 31L, Red Cell Distribution Width 15.2H, Platelet Count 211, Mean Platelet Volume 9.4, Sodium Level 140, Potassium Level 3.7, Chloride Level 109H, Carbon Dioxide Level 21, Anion Gap 10, Blood Urea Nitrogen 11, Creatinine 1.03, Estimat Glomerular Filtration Rate > 60, BUN/Creatinine Ratio 11, Glucose Level 113H, Calcium Level 7.8L Microbiology 09/18/20 MRSA Screen - Final, Complete MRSA not isolated Assessment/Plan Assessment/Plan Assessment/Plan Status post open extended right jesse-colectomy with partial omentectomy Cecal/Terminal ileum mass - biopsies done, pathology pending Hypokalemia, K 3.7 this AM CAD, DM, HTN Replace K, Encourage IS and ambulation Pain management NPO Monitor NG drainage totals OSMIN RAMOS DO 09/21/20 2002: Subjective Time Seen by a Provider: 10:56 Subjective/Events-last exam Pt seen and examined, has some moderate abdominal pain "when I cough". No flatus or BM. Review of Systems General: No Chills, No Night Sweats; Fatigue, Malaise Pulmonary: No Dyspnea, No Cough Cardiovascular: No: Chest Pain, Palpitations Gastrointestinal: Abdominal Pain (From incision); No: Nausea, Vomiting Objective Exam General Appearance: No Apparent Distress, Obese HEENT: Moist Mucous Membranes Respiratory: No Accessory Muscle Use, No Respiratory Distress, Crackles (RLL), Decreased Breath Sounds (at bases- improving) Cardiovascular: Regular Rate, Rhythm, No Murmur Gastrointestinal: no organomegaly, abnormal bowel sounds (decreased), distended (firm) Assessment/Plan Assessment/Plan Assessment/Plan Status post open extended right jesse-colectomy with partial omentectomy Hypokalemia, K 3.7 this AM CAD, DM, HTN Replace K, Encourage IS and ambulation, Pain management, cont NPO and monitor NGT. Pain meds as needed. Supervisory-Addendum Brief Verification & Attestation Participated in pt care: history, MDM, physical Personally performed: exam, history, MDM Care discussed with: Medical Student Procedures: n/a Verification and Attestation of Medical Student E/M Service A medical student performed and documented this service. I then reviewed and verified all information documented by the medical student and made modifications to such information, when appropriate. I personally performed a physical exam, medical decision making and then discussed any differences between the notes and made revisions as necessary to create one note. Osmin Ramos , 09/21/20 , 20:02 SUKHDEEP ESCOBAR MED STUDENT Sep 21, 2020 10:07 OSMIN RAMOS DO Sep 21, 2020 20:02
--- NOTE | 2020-09-21 11:08 | Progress Note - Hospitalist ---
Subjective HPI/CC On Admission Date Seen by Provider: Sep 21, 2020 Time Seen by Provider: 11:02 Subjective/Events-last exam Pt reports doing ok. Has NGT in place. Pain controlled. No flatus or BM. States he was told the mass was cancer. Objective Exam Vital Signs Vital Signs Date Time Temp Pulse Resp B/P (MAP) Pulse Ox O2 Delivery O2 Flow Rate FiO2 09/21/20 10:24 93 Nasal Cannula 2.00 09/21/20 07:39 36.6 83 22 118/66 (83) 09/20/20 14:30 28 Capillary Refill : Less Than 3 Seconds General Appearance: No Apparent Distress, WD/WN HEENT: Other (NGT in place) Respiratory: Lungs Clear, No Respiratory Distress Cardiovascular: Regular Rate, Rhythm, No Murmur Gastrointestinal: Soft, Tenderness (appropriate), Other (absent bowel sounds) Neurologic/Psychiatric: Alert, Oriented x3, Normal Mood/Affect Results/Procedures Lab Laboratory Tests 09/21/20 05:56 Patient resulted labs reviewed. Assessment/Plan Assessment and Plan Assess & Plan/Chief Complaint 1. Acute Diverticulitis/Colitis--continue IV zosyn, completed course of Flagyl, continue pain regimen 2. Hypertension--relatively well controlled for in hospital parameters, continue Metoprolol 3. HypoxiaAtelectesis--on IS, wean oxygen as able 4. Possible RLQ mass--s/p colonoscopy and path is pending, defer further management to Dr Ramos, branidn s/p resection on 09/20, await path 5. Hepatomegaly--further evaluation as outpatient pending colonoscopy results, CT reveals fatty infiltration 6. Abdominal Distention/Ileus--continue docusate, NGTD 7. Hypokalemia-- resolved 8. Neutropenia/Anemia--Improved this morning, yesterdays labs are likely lab error or dilutional as today and 09/18 are nearly identical 9. Hypothyroidism- continue home meds 10. Insomnia- Continue Trazodone 11. DVT ppx: DAJUAN Peters MD Sep 21, 2020 11:08
[2020-09-21] MEDS ORDERED: CHLORASEPTIC SPRAY 177 ML LIQUID MC PRN (11:15)
[2020-09-21] MEDS: ENOXAPARIN 40 MG/0.4 ML (LOVENOX) SYR SC SCH (14:24)
[2020-09-21] MEDS: traZODone 50 MG (DESYREL) TAB PO PRN (22:20)
[2020-09-22] MEDS: PIPERACILLIN/TAZOBACTAM (BULK) 4.5 GM in NS (IVPB) 100 ML IV SCH ×2 (02:06→09:09)
[2020-09-22] MEDS: LACTATED RINGERS 1,000 ML IV SCH ×4 (02:06→17:08)
[2020-09-22] MEDS: KETOROLAC 30 MG/ML VIAL IVP SCH ×4 (02:06→20:08)
[2020-09-22] MEDS: RT-ALBUTEROL INHALER HFA (VENTOLIN HFA) 18 GM IH SCH ×6 (02:10→22:06)
[2020-09-22] MEDS: fentaNYL INJECTION 100 MCG/2 ML AMP IVP PRN ×5 (02:57→22:53)
[2020-09-22 03:59] VITALS: BP 153/70
[2020-09-22] MEDS: LEVOTHYROXINE 25 MCG (LEVOTHROID) TAB PO SCH (06:11)
[2020-09-22] MEDS: ACETAMINOPHEN 500 MG TAB (TYLENOL) PO SCH ×3 (06:11→22:00)
--- NOTE | 2020-09-22 07:35 | Progress Note - Surgery ---
ALICIA BERMAN MED STUDENT 09/22/20 0735: Subjective Date Seen by a Provider: Sep 22, 2020 Time Seen by a Provider: 07:15 Subjective/Events-last exam Patient is upright and awake in bed this morning, on phone with . States that he is having no pain this morning, or at least it is very improved since yesterday since receiving pain meds. States he has had no BM or flatus, states he has belched. Swelling in R hand, states it is about the same as yesterday. He is able to ambulate with help, not receiving PT at this time. Reports that he is doing his breathing exercises. Says it hurts very much to cough. Is still NPO. Drain ~850ml dark greenish fluid. Denies fever, NVD, chest pain, SOB. Positive for slight abdominal pain. Objective Exam Vital Signs Date Time Temp Pulse Resp B/P (MAP) Pulse Ox O2 Delivery O2 Flow Rate FiO2 09/22/20 06:30 91 Nasal Cannula 3.00 09/22/20 03:59 36.6 98 20 153/70 (97) 95 High Flow N/C 3.00 09/22/20 02:11 90 Nasal Cannula 3.00 09/21/20 23:00 37.5 96 20 127/71 (89) 94 High Flow N/C 3.00 09/21/20 22:11 90 Nasal Cannula 3.00 09/21/20 21:10 Nasal Cannula 3.00 09/21/20 20:00 36.9 87 20 127/64 (85) 95 High Flow N/C 3.00 09/21/20 17:38 95 Nasal Cannula 3.00 09/21/20 16:00 36.8 88 20 128/64 (85) 90 High Flow N/C 2.00 09/21/20 14:48 91 Nasal Cannula 2.00 09/21/20 11:30 37.0 85 20 119/57 (77) 92 High Flow N/C 2.00 09/21/20 10:24 93 Nasal Cannula 2.00 09/21/20 08:30 Nasal Cannula 2.00 09/21/20 08:00 Nasal Cannula 4.00 09/21/20 07:39 36.6 83 22 118/66 (83) 94 High Flow N/C 4.00 I & O 09/22/20 07:00 Output Total 1100 ml Balance -1100 ml Capillary Refill : Less Than 3 Seconds General Appearance: No Apparent Distress, Obese HEENT: Moist Mucous Membranes Neck: Full Range of Motion, Normal Inspection, Non Tender, Supple Respiratory: Chest Non Tender, Lungs Clear, Normal Breath Sounds, No Accessory Muscle Use, No Respiratory Distress, Crackles (RLL), Decreased Breath Sounds (at bases- improving) Cardiovascular: Regular Rate, Rhythm, No Murmur Peripheral Pulses: 2+ Dorsalis Pedis (R), 2+ Left Dors-Pedis (L), 2+ Radial Pulses (R), 2+ Radial Pulses (L) Gastrointestinal: no organomegaly, abnormal bowel sounds (decreased), distended (firm) Extremity: Normal Capillary Refill, No Calf Tenderness, No Pedal Edema, Swelling (Right hand) Neurologic/Psychiatric: Alert, Oriented x3, No Motor/Sensory Deficits, Normal Mood/Affect Skin: Normal Color, Warm/Dry Lymphatic: No Adenopathy (cervical, supraclavicular, axillary) Results Lab Microbiology 09/18/20 MRSA Screen - Final, Complete MRSA not isolated Assessment/Plan Assessment/Plan Assessment/Plan Status post open extended right jesse-colectomy with partial omentectomy Hypokalemia, K 3.7 this AM CAD, DM, HTN Replace K, Encourage IS and ambulation, Pain management, cont NPO and monitor NGT. Pain meds as needed. Supervisory-Addendum Brief Verification & Attestation Participated in pt care: history, physical Personally performed: exam, history Care discussed with: other Procedures: n/a n/a OSMIN RAMOS DO 09/22/20 1239: Subjective Time Seen by a Provider: 11:42 Subjective/Events-last exam Pt seen and examined, states he still has abdominal pain; but maybe slightly better than yesterday. He did get up and walk to chair, but that was it. States he is burping, but denied flatus or BM. Review of Systems General: Fatigue, Malaise Pulmonary: No Dyspnea, No Cough Cardiovascular: No: Chest Pain, Palpitations Gastrointestinal: Abdominal Pain; No: Nausea, Vomiting Objective Exam General Appearance: No Apparent Distress, Obese Respiratory: Lungs Clear, No Accessory Muscle Use, No Respiratory Distress, Decreased Breath Sounds (at bases- improving) Cardiovascular: Regular Rate, Rhythm, No Murmur Gastrointestinal: soft, abnormal bowel sounds (decreased), distended (firm) Extremity: Swelling (Right hand - improved compared to yesterday) Assessment/Plan Assessment/Plan Assessment/Plan Status post open extended right jesse-colectomy with partial omentectomy Hypokalemia, K 3.7 this AM CAD, DM, HTN Replace K, Encourage IS and ambulation, Pain management, cont NPO and monitor NGT. Pain meds as needed. D/C [facility]. PT/OT will hopefully help pt move, ok to chew gum. Will clamp NGT Supervisory-Addendum Brief Verification & Attestation Participated in pt care: history, MDM, physical Personally performed: exam, history, MDM Care discussed with: Medical Student Procedures: n/a Verification and Attestation of Medical Student E/M Service A medical student performed and documented this service. I then reviewed and verified all information documented by the medical student and made modifications to such information, when appropriate. I personally performed a physical exam, medical decision making and then discussed any differences between the notes and made revisions as necessary to create one note. Osmin Ramos , 09/22/20 , 12:38 ALICIA BERMAN MED STUDENT Sep 22, 2020 07:35 OSMIN RAMOS DO Sep 22, 2020 12:39
[2020-09-22 08:43] VITALS: BP 118/58
[2020-09-22] MEDS: PANTOPRAZOLE 40 MG (PROTONIX) VIAL IV SCH (08:59)
[2020-09-22] MEDS: DOCUSATE SODIUM 100 MG (COLACE) CAP PO SCH ×2 (09:00→20:08)
[2020-09-22 11:12] VITALS: BP 118/58
[2020-09-22 11:32] VITALS: BP 164/77
[2020-09-22] MEDS ORDERED: RT-ALBUTEROL INHALER HFA (VENTOLIN HFA) 18 GM IH PRN (12:00)
[2020-09-22] MEDS: NS IV 1000 ML 1,000 ML IV SCH (12:33)
[2020-09-22] MEDS: ENOXAPARIN 40 MG/0.4 ML (LOVENOX) SYR SC SCH (14:57)
[2020-09-22 15:42] VITALS: BP 159/76
--- NOTE | 2020-09-22 18:36 | Progress Note ---
Subjective Date Seen by a Provider: Sep 22, 2020 Time Seen by a Provider: 08:35 Subjective/Events-last exam Fwup right sided colon mass--S/P right hemicolectomy, diverticulitis, HTN, COPD. Sitting up in bed with NG tube in place. Denies flatus or BM. Pain well controlled. Objective Exam Vital Signs Date Time Temp Pulse Resp B/P (MAP) Pulse Ox O2 Delivery O2 Flow Rate FiO2 09/22/20 15:42 36.6 88 20 159/76 (103) 95 High Flow N/C 3.00 09/22/20 14:00 95 Nasal Cannula 3.00 09/22/20 11:32 36.5 86 16 164/77 (106) 94 High Flow N/C 3.00 09/22/20 11:12 36.8 86 91 32 09/22/20 10:24 91 Nasal Cannula 3.00 09/22/20 08:43 36.8 92 20 118/58 (78) 94 High Flow N/C 3.00 09/22/20 08:00 94 Nasal Cannula 3.00 09/22/20 06:30 91 Nasal Cannula 3.00 09/22/20 03:59 36.6 98 20 153/70 (97) 95 High Flow N/C 3.00 09/22/20 02:11 90 Nasal Cannula 3.00 09/21/20 23:00 37.5 96 20 127/71 (89) 94 High Flow N/C 3.00 09/21/20 22:11 90 Nasal Cannula 3.00 09/21/20 21:10 Nasal Cannula 3.00 09/21/20 20:00 36.9 87 20 127/64 (85) 95 High Flow N/C 3.00 I & O 09/22/20 07:00 Output Total 1100 ml Balance -1100 ml Capillary Refill : Less Than 3 Seconds General Appearance: Mild Distress HEENT: Other (NG tube in place) Neck: Supple Respiratory: Lungs Clear, Decreased Breath Sounds Cardiovascular: Regular Rate, Rhythm, Systolic Murmur Gastrointestinal: soft, abnormal bowel sounds, other (dressing dry and in place) Extremity: Non Tender, No Calf Tenderness, No Pedal Edema Neurologic/Psychiatric: Alert, Oriented x3 Results Lab Microbiology 09/18/20 MRSA Screen - Final, Complete MRSA not isolated Assessment/Plan Assessment/Plan Assess & Plan/Chief Complaint 1. Acute Diverticulitis/Colitis--improved 2. Hypertension--increase metoprolol dose 3. HypoxiaAtelectesis/COPD--on IS and oxygen, inhalers restarted 4. RLQ mass--S/P right hemicolectomy 5. Hepatomegaly--further workup pending above pathology results 6. Weakness--start PT/ambulate 7. Hypokalemia--improved 8. Anemia--H/H stable Clinical Quality Measures Admission Status Admission Dx 1. Acute Diverticulitis/Colitis--admit for IVFs, gut rest, IV antibiotics, IV pain control, surgical consult, lovenox for DVT prophylaxis 2. Hepatomegaly with nodularity--discussed further workup once over this acute episode 3. Hypertension--BP currently stable with no meds 4. COPD--resume inhalers 5. History of CAD--stable YENI RUVALCABA DO Sep 22, 2020 18:36
[2020-09-22 19:27] VITALS: BP 142/83
[2020-09-22] MEDS: traZODone 50 MG (DESYREL) TAB PO PRN (22:00)
[2020-09-23 00:04] VITALS: BP 138/80
[2020-09-23] MEDS: LACTATED RINGERS 1,000 ML IV SCH (00:30)
[2020-09-23] MEDS: NS IV 1000 ML 1,000 ML IV SCH ×2 (00:30→02:15)
[2020-09-23] MEDS: KETOROLAC 30 MG/ML VIAL IVP SCH ×4 (01:55→20:11)
[2020-09-23] MEDS: RT-ALBUTEROL INHALER HFA (VENTOLIN HFA) 18 GM IH SCH ×6 (02:23→22:06)
[2020-09-23 04:00] VITALS: BP 159/82
[2020-09-23] MEDS: LEVOTHYROXINE 25 MCG (LEVOTHROID) TAB PO SCH (06:08)
[2020-09-23] MEDS: ACETAMINOPHEN 500 MG TAB (TYLENOL) PO SCH ×3 (06:09→22:30)
[2020-09-23 06:30] LABS: HEMOGLOBIN 9.2 g/dL (13.3-17.7); MEAN PLATELET VOLUME 10.1 fL (9.0-12.2); WHITE BLOOD COUNT 8.8 10^3/uL (4.3-11.0)
[2020-09-23 06:41] LABS: CHLORIDE 105 MMOL/L (98-107); SODIUM 140 MMOL/L (135-145)
[2020-09-23 06:42] LABS: CALCIUM 8.2 MG/DL (8.5-10.1)
[2020-09-23 06:43] LABS: GLUCOSE 80 MG/DL (70-105)
[2020-09-23 06:44] LABS: CARBON DIOXIDE 18 MMOL/L (21-32)
[2020-09-23 06:46] LABS: CREATININE SERUM 0.77 MG/DL (0.60-1.30); GFR ESTIMATED > 60
[2020-09-23 06:47] LABS: BUN/CREATININE RATIO 8
--- NOTE | 2020-09-23 07:51 | Progress Note - Surgery ---
ALICIA BERMAN MED STUDENT 09/23/20 0750: Subjective Date Seen by a Provider: Sep 23, 2020 Time Seen by a Provider: 07:30 Subjective/Events-last exam Patient states he has been coughing quite a bit this morning and has been causing him some pain. States otherwise his pain is better than it was yest erday. Patient had BM today, Diarrhea w/o blood or pus and is passing gas. Catheter is removed, patient ambulating between bed, chair, and bathroom regularly, was walked around unit with PT yesterday. He is off oxygen. NG tube blocked off and currently not suctioning. Patient still NPO. Hand swelling is better than yesterday. Has no other questions or concerns this morning. Objective Exam Vital Signs Date Time Temp Pulse Resp B/P (MAP) Pulse Ox O2 Delivery O2 Flow Rate FiO2 09/23/20 06:55 97 Nasal Cannula 3.00 09/23/20 04:00 36.9 77 20 159/82 (107) 95 High Flow N/C 2.50 09/23/20 02:23 94 Nasal Cannula 3.00 09/23/20 00:04 36.4 92 20 138/80 (99) 93 High Flow N/C 2.50 09/22/20 22:06 93 Nasal Cannula 3.00 09/22/20 20:00 Nasal Cannula 2.50 09/22/20 19:27 36.8 98 20 142/83 (102) 95 High Flow N/C 2.50 09/22/20 18:46 95 Nasal Cannula 3.00 09/22/20 15:42 36.6 88 20 159/76 (103) 95 High Flow N/C 3.00 09/22/20 14:00 95 Nasal Cannula 3.00 09/22/20 11:32 36.5 86 16 164/77 (106) 94 High Flow N/C 3.00 09/22/20 11:12 36.8 86 91 32 09/22/20 10:24 91 Nasal Cannula 3.00 09/22/20 08:43 36.8 92 20 118/58 (78) 94 High Flow N/C 3.00 09/22/20 08:00 94 Nasal Cannula 3.00 I & O 09/23/20 07:00 Intake Total 1120 ml Output Total 600 ml Balance 520 ml Capillary Refill : Less Than 3 Seconds General Appearance: No Apparent Distress HEENT: Other (NG tube in place) Respiratory: Chest Non Tender, Lungs Clear, Normal Breath Sounds, No Accessory Muscle Use, No Respiratory Distress Cardiovascular: Regular Rate, Rhythm, No Edema, Normal Peripheral Pulses Peripheral Pulses: 2+ Radial Pulses (R), 2+ Radial Pulses (L) Gastrointestinal: non tender, soft, other (fresh dressing dry and in place) Extremity: Non Tender, No Calf Tenderness, No Pedal Edema Neurologic/Psychiatric: Alert, Oriented x3 Skin: Normal Color, Warm/Dry Lymphatic: No Adenopathy (cervical, supraclavicular, axillary) Results Lab Laboratory Tests 09/23/20 05:54: White Blood Count 8.8, Red Blood Count 3.70L, Hemoglobin 9.2L, Hematocrit 30L, Mean Corpuscular Volume 81, Mean Corpuscular Hemoglobin 25, Mean Corpuscular Hemoglobin Concent 31L, Red Cell Distribution Width 15.4H, Platelet Count 231, Mean Platelet Volume 10.1, Sodium Level 140, Potassium Level 3.0L, Chloride Level 105, Carbon Dioxide Level 18L, Anion Gap 17H, Blood Urea Nitrogen 6L, Creatinine 0.77, Estimat Glomerular Filtration Rate > 60, BUN/Creatinine Ratio 8, Glucose Level 80, Calcium Level 8.2L Microbiology 09/18/20 MRSA Screen - Final, Complete MRSA not isolated Assessment/Plan Assessment/Plan Assessment/Plan 1. Hypertension--increase metoprolol dose to 25mg BID 2. HypoxiaAtelectesis/COPD--D/C Supplemental oxygen, Sat 93% on RA. 3. RLQ mass--S/P right hemicolectomy, Introduce clear liquids 4. Anemia--H/H stable OSMIN RAMOS DO 09/23/20 1200: Subjective Time Seen by a Provider: 11:31 Subjective/Events-last exam Pt seen and examined, states he his doing much better today. Has passed flatus and had at least 2 BM's. He also states his stomach is not near as distended as it was. Review of Systems General: Chills, Night Sweats Pulmonary: No Dyspnea, No Cough Cardiovascular: No: Chest Pain, Palpitations Gastrointestinal: Abdominal Pain (mild and mostly at incision); No: Nausea, Vom iting Objective Exam General Appearance: No Apparent Distress Respiratory: Lungs Clear, Normal Breath Sounds, No Accessory Muscle Use, No Respiratory Distress Cardiovascular: Regular Rate, Rhythm, Normal Peripheral Pulses Gastrointestinal: soft, tenderness (minimal at incision), other (incision is c/d/i) Assessment/Plan Assessment/Plan Assessment/Plan S/P Right Colon Resection - unfortunately path showed bx of this area during colonoscopy were in fact cancer. HTN, Anemia, COPD Plan to d/c NGT and start clears, continue ambulation and IS use. If pt able to tolerate diet and pain controlled on oral meds, will d/c home. Supervisory-Addendum Brief Verification & Attestation Participated in pt care: history, MDM, physical Personally performed: exam, history, MDM Care discussed with: Medical Student Procedures: n/a Verification and Attestation of Medical Student E/M Service A medical student performed and documented this service. I then reviewed and verified all information documented by the medical student and made modifications to such information, when appropriate. I personally performed a physical exam, medical decision making and then discussed any differences between the notes and made revisions as necessary to create one note. Osmin Ramos , 09/23/20 , 12:54 ALICIA BERMAN MED STUDENT Sep 23, 2020 07:50 OSMIN RAMOS DO Sep 23, 2020 12:00
[2020-09-23] MEDS: DOCUSATE SODIUM 100 MG (COLACE) CAP PO SCH ×2 (08:05→20:11)
[2020-09-23] MEDS: PANTOPRAZOLE 40 MG (PROTONIX) VIAL IV SCH (08:05)
[2020-09-23 08:18] VITALS: BP 186/87
--- NOTE | 2020-09-23 08:32 | Progress Note ---
Subjective Date Seen by a Provider: Sep 23, 2020 Time Seen by a Provider: 08:27 Subjective/Events-last exam Fwup right sided colon mass--S/P right hemicolectomy, diverticulitis, HTN, COPD. Sitting up in chair. Had BM and passing flatus. Pain well controlled. Did wake up with sweats this morning. Objective Exam Vital Signs Date Time Temp Pulse Resp B/P (MAP) Pulse Ox O2 Delivery O2 Flow Rate FiO2 09/23/20 08:18 37.0 95 16 186/87 (120) 90 Room Air 09/23/20 06:55 97 Nasal Cannula 3.00 09/23/20 04:00 36.9 77 20 159/82 (107) 95 High Flow N/C 2.50 09/23/20 02:23 94 Nasal Cannula 3.00 09/23/20 00:04 36.4 92 20 138/80 (99) 93 High Flow N/C 2.50 09/22/20 22:06 93 Nasal Cannula 3.00 09/22/20 20:00 Nasal Cannula 2.50 09/22/20 19:27 36.8 98 20 142/83 (102) 95 High Flow N/C 2.50 09/22/20 18:46 95 Nasal Cannula 3.00 09/22/20 15:42 36.6 88 20 159/76 (103) 95 High Flow N/C 3.00 09/22/20 14:00 95 Nasal Cannula 3.00 09/22/20 11:32 36.5 86 16 164/77 (106) 94 High Flow N/C 3.00 09/22/20 11:12 36.8 86 91 32 09/22/20 10:24 91 Nasal Cannula 3.00 09/22/20 08:43 36.8 92 20 118/58 (78) 94 High Flow N/C 3.00 I & O 09/23/20 07:00 Intake Total 1120 ml Output Total 600 ml Balance 520 ml Capillary Refill : Less Than 3 Seconds General Appearance: No Apparent Distress Respiratory: Lungs Clear Cardiovascular: Regular Rate, Rhythm, Systolic Murmur Gastrointestinal: non tender, soft, abnormal bowel sounds (hypoactive), other (dry dressing in place) Extremity: Non Tender, No Calf Tenderness, No Pedal Edema Neurologic/Psychiatric: Alert, Oriented x3 Skin: Erythema (mild to lower right lateral abdominal incision area ) Results Lab Laboratory Tests 09/23/20 05:54: White Blood Count 8.8, Red Blood Count 3.70L, Hemoglobin 9.2L, Hematocrit 30L, Mean Corpuscular Volume 81, Mean Corpuscular Hemoglobin 25, Mean Corpuscular Hemoglobin Concent 31L, Red Cell Distribution Width 15.4H, Platelet Count 231, Mean Platelet Volume 10.1, Sodium Level 140, Potassium Level 3.0L, Chloride Level 105, Carbon Dioxide Level 18L, Anion Gap 17H, Blood Urea Nitrogen 6L, Creatinine 0.77, Estimat Glomerular Filtration Rate > 60, BUN/Creatinine Ratio 8, Glucose Level 80, Calcium Level 8.2L Microbiology 09/18/20 MRSA Screen - Final, Complete MRSA not isolated Assessment/Plan Assessment/Plan Assess & Plan/Chief Complaint 1. Acute Diverticulitis/Colitis--improved, off abx 2. Hypertension--continue metoprolol 3. HypoxiaAtelectesis/COPD--on IS and oxygen, inhalers restarted 4. RLQ mass--S/P right hemicolectomy, pathology pending 5. Hepatomegaly--further workup pending above pathology results 6. Weakness--start PT/ambulate 7. Hypokalemia--replace potassium via IV 8. Anemia--H/H stable, will monitor Clinical Quality Measures Admission Status Admission Dx 1. Acute Diverticulitis/Colitis--admit for IVFs, gut rest, IV antibiotics, IV pain control, surgical consult, lovenox for DVT prophylaxis 2. Hepatomegaly with nodularity--discussed further workup once over this acute episode 3. Hypertension--BP currently stable with no meds 4. COPD--resume inhalers 5. History of CAD--stable YENI RUVALCABA DO Sep 23, 2020 08:32
[2020-09-23] MEDS: POTASSIUM CL 10MEQ/50ML IVPB 50 ML IV SCH ×2 (08:48→10:26)
[2020-09-23] MEDS: 1/2 NS W/KCL 20 MEQ/L 1,000 ML IV SCH ×2 (08:48→18:12)
--- NOTE | 2020-09-23 10:43 | Physical Therapy Evaluation ---
PT Evaluation-General Medical Diagnosis Admission Date Sep 13, 2020 at 09:28 Medical Diagnosis: diverticulitis/appendicitis Onset Date: Sep 13, 2020 Therapy Diagnosis Therapy Diagnosis: debility Height/Weight Height (Feet): 5 Height (Inches): 8.00 Weight (Pounds): 238 Weight (Ounces): 5.0 Precautions Precautions/Isolations: Standard Precautions Referral Physician: Lucy Reason for Referral: Evaluation/Treatment Medical History Pertinent Medical History: CAD, COPD, DM, HTN, MA Additional Medical History Covid April 2020 Current History Admit secondary to severe abdominal pain Reviewed History: Yes Social History Home: Single Level Current Living Status: Spouse Entry Into Home: Stairs With Railing PT Steps Into Home: 3 Prior Prior Level of Function SCALE: Activities may be completed with or without assistive devices. 9-Adwqciozql-gdwfuuz completes the activity by him/herself with no assistance from a helper. 5-Set-up or Clean-up Assistance-helper sets up or cleans up; patient completes activity. [place] assists only prior to or following the activity. 4-Supervision or Touching Assistance-helper provides verbal cues and/or touching/steadying and/or contact guard assistance as patient completes activity. Assistance may be provided throughout the activity or intermittently. 3-Partial/Moderate Assistance-helper does LESS THAN HALF the effort. [place]ell lifts, holds or supports trunk or limbs, but provides less than half the effort. 2-Substantial/Maximal Assistance-helper does MORE THAN HALF the effort. [place] lifts or holds trunk or limbs and provides more than half the effort. 1-Kcusiklak-hxatqy does ALL the effort. Patient does none of the effort to complete the activity. Or, the assistance of 2 or more helpers is required for the patient to complete the activity. If activity was not attempted, code reason: 7-Patient Refused. 9-Not Applicable-not attempted and the patient did not perform the activity before the current illness, exacerbation or injury. 10-Not Attempted due to Environmental Limitations-(lack of equipment, weather restraints, etc.). 88-Not Attempted due to Medical Conditions or Safety Concerns. Bed Mobility: 6 Transfers (B,C,W/C): 6 Gait: 6 Stairs: 6 Indoor Mobility (Ambulation): Independent Stairs: Independent Prior Devices Use: None PT Evaluation-Current Subjective Patient agrees to PT. Spouse present. Objective Patient Orientation: Normal For Age Attachments: NG Tube, IV ROM/Strength ROM Lower Extremities bilateral LE WFL Strength Lower Extremities 4+/5 grossly bilateral LE Integumentary/Posture Integumentary refer to nursing notes Bowel Incontinence: No Bladder Incontinence: No Posture WFL Neuromuscular (Tone, Coordination, Reflexes) grossly intact Sensory Vision: Wears Glasses Hearing: Functional Transfers Roll Left to Right (QC): 6 Sit to Lying (QC): 6 Lying to Sitting/Side of Bed(Q: 6 Sit to Stand (QC): 6 Chair/Ftc-ks-Jrnqs Xfer(QC): 6 Gait Does the Patient Walk?: Yes Mode of Locomotion: Walk Anticipated Mode of Locomotion: Walk Walk 10 feet (QC): 6 Walk 50 ft with 2 Turns(QC): 6 Walk 150 ft (QC): 6 Distance: 500' Gait Assistive Device: None Comments/Gait Description safe and functional with no deviation Balance Sitting Static: Normal Sitting Dynamic: Normal Standing Static: Normal Standing Dynamic: Normal Assessment/Needs 64 y.o. male, is currently at independent [facility] and is up with nursing ambulating PRN. No skilled PT indicated. Rehab Potential: Fair PT Plan Treatment/Plan Treatment Plan: Discontinue PT, goals met Treatment Duration: Sep 23, 2020 Frequency: 1 time per week Estimated Hrs Per Day: .25 hour per day Discharge Recommendations Therapy Discharge Recommendati: Home & Family Time/GCodes Time In: 836 Time Out: 849 Total Billed Treatment Time: 13 Total Billed Treatment 1 visit EVLowC 13 min AUBREY GRANADOS PT Sep 23, 2020 10:43
[2020-09-23 12:33] VITALS: BP 161/78
[2020-09-23] MEDS ORDERED: HYDROcodone/APAP 5 MG/325 MG (LORTAB) TAB PO PRN (12:45)
[2020-09-23] MEDS: ENOXAPARIN 40 MG/0.4 ML (LOVENOX) SYR SC SCH (15:15)
[2020-09-23 15:50] VITALS: BP 163/77
[2020-09-23 20:01] VITALS: BP 165/79
[2020-09-23] MEDS: traZODone 50 MG (DESYREL) TAB PO PRN (20:11)
[2020-09-24 00:16] VITALS: BP 157/74
[2020-09-24] MEDS: RT-ALBUTEROL INHALER HFA (VENTOLIN HFA) 18 GM IH SCH ×3 (02:01→10:34)
[2020-09-24] MEDS: KETOROLAC 30 MG/ML VIAL IVP SCH ×2 (02:20→08:52)
[2020-09-24 03:37] VITALS: BP 145/66
[2020-09-24] MEDS: 1/2 NS W/KCL 20 MEQ/L 1,000 ML IV SCH ×2 (03:40→13:53)
[2020-09-24 05:42] LABS: HEMOGLOBIN 9.7 g/dL (13.3-17.7); MEAN PLATELET VOLUME 9.9 fL (9.0-12.2); WHITE BLOOD COUNT 8.7 10^3/uL (4.3-11.0)
[2020-09-24] MEDS: ACETAMINOPHEN 500 MG TAB (TYLENOL) PO SCH (05:50)
[2020-09-24] MEDS: LEVOTHYROXINE 25 MCG (LEVOTHROID) TAB PO SCH (05:50)
[2020-09-24 06:05] LABS: CHLORIDE 106 MMOL/L (98-107); SODIUM 140 MMOL/L (135-145)
[2020-09-24 06:06] LABS: CALCIUM 8.3 MG/DL (8.5-10.1); GLUCOSE 95 MG/DL (70-105)
[2020-09-24 06:08] LABS: CARBON DIOXIDE 17 MMOL/L (21-32)
[2020-09-24 06:10] LABS: CREATININE SERUM 0.75 MG/DL (0.60-1.30); GFR ESTIMATED > 60
[2020-09-24 06:11] LABS: BUN/CREATININE RATIO 4
--- NOTE | 2020-09-24 07:30 | Progress Note - Surgery ---
ANTONELLAALICIA MED STUDENT 09/24/20 0730: Subjective Date Seen by a Provider: Sep 24, 2020 Subjective/Events-last exam Pt states pain is still getting better, still get a little worse when he coughs. Has had clear liquids for his past 2 meals. No nausea or vomiting associated, tolerated well. Is able to walk around easily and walked around unit with aid yesterday. Has had 2 more bowel movements, diarrhea, no blood or pain. A little of his usual shortness of breath, is doing his breathing exercises. NG tube removed. Would like to know when he can advance his diet to soft foods. Objective Exam Vital Signs Date Time Temp Pulse Resp B/P (MAP) Pulse Ox O2 Delivery O2 Flow Rate FiO2 09/24/20 03:37 36.2 79 18 145/66 (92) 93 Room Air 09/24/20 02:01 96 Room Air 09/24/20 00:16 36.2 89 18 157/74 (101) 94 Room Air 09/23/20 22:06 93 Room Air 09/23/20 20:01 36.3 85 20 165/79 (107) 92 Room Air 09/23/20 19:44 Room Air 09/23/20 18:26 93 Room Air 09/23/20 15:50 36.6 92 20 163/77 (105) 90 Room Air 09/23/20 14:45 92 Room Air 09/23/20 12:33 36.8 87 17 161/78 (105) 93 Room Air 09/23/20 10:13 91 Room Air 09/23/20 08:18 37.0 95 16 186/87 (120) 90 Room Air 09/23/20 08:00 91 Nasal Cannula 3.00 I & O 09/24/20 07:00 Intake Total 2670 ml Output Total 2400 ml Balance 270 ml Capillary Refill : Less Than 3 Seconds General Appearance: No Apparent Distress Respiratory: Chest Non Tender, Lungs Clear, Normal Breath Sounds, No Accessory Muscle Use, No Respiratory Distress Cardiovascular: Regular Rate, Rhythm, No Edema, No Murmur, Normal Peripheral Pulses Peripheral Pulses: 2+ Radial Pulses (R), 2+ Radial Pulses (L) Gastrointestinal: soft (Abdomen softer than yesterday), tenderness (minimal at incision), other (incision is c/d/i, freshly changed pad) Extremity: Non Tender, No Calf Tenderness, No Pedal Edema Neurologic/Psychiatric: Alert, Oriented x3 Skin: Normal Color, Warm/Dry Lymphatic: No Adenopathy (cervical, supraclavicular, axillary) Results Lab Laboratory Tests 09/24/20 05:21: White Blood Count 8.7, Red Blood Count 3.89L, Hemoglobin 9.7L, Hematocrit 31L, Mean Corpuscular Volume 79L, Mean Corpuscular Hemoglobin 25, Mean Corpuscular Hemoglobin Concent 32, Red Cell Distribution Width 15.4H, Platelet Count 277, Mean Platelet Volume 9.9, Sodium Level 140, Potassium Level 3.0L, Chloride Level 106, Carbon Dioxide Level 17L, Anion Gap 17H, Blood Urea Nitrogen 3L, Creatinine 0.75, Estimat Glomerular Filtration Rate > 60, BUN/Creatinine Ratio 4, Glucose Level 95, Calcium Level 8.3L Microbiology 09/18/20 MRSA Screen - Final, Complete MRSA not isolated Assessment/Plan Assessment/Plan Assessment/Plan S/P Right Colon Resection - unfortunately path showed bx of this area during colonoscopy were in fact cancer. HTN, Anemia, COPD Plan to d/c NGT and start clears, continue ambulation and IS use. If pt able to tolerate diet and pain controlled on oral meds, will d/c home. 1. S/P right hemicolectomy- Clear liquids tolerated, introduce soft diet, if tolerated and pain controlled with oral meds d/c home 2. HypoxiaAtelectesis/COPD- Patient 93% on RA w/ no distress 3. Anemia-HGB improved to 9.7 OSMIN RAMOS DO 09/25/20 1801: Subjective Time Seen by a Provider: 12:59 Subjective/Events-last exam Pt seen and examined, ready to go home. Review of Systems General: No Chills, No Night Sweats; Fatigue Pulmonary: No Dyspnea, No Cough Cardiovascular: No: Chest Pain, Palpitations Objective Exam General Appearance: No Apparent Distress Respiratory: Lungs Clear, Normal Breath Sounds, No Accessory Muscle Use Cardiovascular: Regular Rate, Rhythm, No Murmur Gastrointestinal: soft (Abdomen softer than yesterday), tenderness (minimal at incision) Assessment/Plan Assessment/Plan Assessment/Plan S/P Right Colon Resection - unfortunately path showed bx of this area during colonoscopy were in fact cancer. HTN, Anemia, COPD D/C IV, D/C home Supervisory-Addendum Brief Verification & Attestation Participated in pt care: history, MDM, physical Personally performed: exam, history, MDM Care discussed with: Medical Student Procedures: n/a Verification and Attestation of Medical Student E/M Service A medical student performed and documented this service. I then reviewed and verified all information documented by the medical student and made modifica tions to such information, when appropriate. I personally performed a physical exam, medical decision making and then discussed any differences between the notes and made revisions as necessary to create one note. Osmin Ramos , 09/25/20 , 18:01 ALICIA BERMAN MED STUDENT Sep 24, 2020 07:30 OSMIN RAMOS DO Sep 25, 2020 18:01
[2020-09-24 08:00] VITALS: BP 147/81
--- NOTE | 2020-09-24 08:13 | Progress Note ---
Subjective Subjective Date Seen by Provider: Sep 24, 2020 Time Seen by Provider: 08:00 Fwup right sided colon mass--S/P right hemicolectomy, diverticulitis, HTN, COPD. Sitting up in chair. Has had multiple BM and passing flatus. Reports no pain. Feels well-rested and did not wake up with sweats this morning as he did yesterday. NGT removed and tolerating clear liquid diet well. Pt requesting diet to be progressed. Review of Systems General: No Night Sweats; Appetite (increased appetite) HEENT: No Head Aches, No Sore Throat Pulmonary: No Dyspnea, No Cough Cardiovascular: No: Chest Pain, Palpitations, Edema Gastrointestinal: Other (dressing dry and in place. Erythema extending further than yesterday right lower lateral side of dressing); No: Nausea, Vomiting, Abdominal Pain (mild and mostly at incision) Genitourinary: No Dysuria, No Hematuria Musculoskeletal: No: back pain, leg pain Neurological: No: Weakness, Numbness All Other Systems Reviewed All Other Systems Reviewed: Yes Objective Exam Vital Signs Vital Signs - First Documented 09/18/20 09/20/20 00:00 14:30 Temp 36.1 Pulse 83 Resp 20 B/P (MAP) 134/88 (103) Pulse Ox 93 O2 Delivery Nasal Cannula O2 Flow Rate 3.00 FiO2 28 Capillary Refill : Less Than 3 Seconds General Appearance: No Apparent Distress, WD/WN Respiratory: Chest Non Tender, Lungs Clear, No Accessory Muscle Use, No Respiratory Distress, Decreased Breath Sounds Cardiovascular: Regular Rate, Rhythm, No Edema, No Murmur, Normal Peripheral Pulses Gastrointestinal: No Pulsatile Mass, Soft, Abnormal Bowel Sounds (hypoactive al l 4 quadrants) Extremity: Non Tender, No Calf Tenderness, No Pedal Edema Neurologic/Psychiatric: Alert, Oriented x3, Normal Mood/Affect Skin: Normal Color, Warm/Dry, Erythema Results Lab Laboratory Tests 09/24/20 05:21: White Blood Count 8.7, Red Blood Count 3.89L, Hemoglobin 9.7L, Hematocrit 31L, Mean Corpuscular Volume 79L, Mean Corpuscular Hemoglobin 25, Mean Corpuscular Hemoglobin Concent 32, Red Cell Distribution Width 15.4H, Platelet Count 277, Mean Platelet Volume 9.9, Sodium Level 140, Potassium Level 3.0L, Chloride Level 106, Carbon Dioxide Level 17L, Anion Gap 17H, Blood Urea Nitrogen 3L, Creatinine 0.75, Estimat Glomerular Filtration Rate > 60, BUN/Creatinine Ratio 4, Glucose Level 95, Calcium Level 8.3L Microbiology 09/18/20 MRSA Screen - Final, Complete MRSA not isolated Assessment/Plan Assessment/Plan Admission Dx 1. Acute Diverticulitis/Colitis--admit for IVFs, gut rest, IV antibiotics, IV pain control, surgical consult, lovenox for DVT prophylaxis 2. Hepatomegaly with nodularity--discussed further workup once over this acute episode 3. Hypertension--BP currently stable with no meds 4. COPD--resume inhalers 5. History of CAD--stable Admission Status: Inpatient Order (span 2 midnights) Assessment and Plan Assess & Plan/Chief Complaint 1. Acute Diverticulitis/Colitis--improved 2. Hypertension--increase metoprolol dose 3. HypoxiaAtelectesis/COPD--on IS oxygen discontinued, inhalers restarted 4. RLQ mass--S/P right hemicolectomy 5. Hepatomegaly--further workup pending above pathology results 6. Weakness--continue PT/ambulate 7. Hypokalemia-- 8. Anemia--H/H stable Supervisory-Addendum Brief Verification & Attestation Participated in pt care: history, physical Personally performed: exam, history Care discussed with: Medical Student Procedures: n/a Agree with above. Will replace potassium orally JOJO GRIFFIN MED STUDENT Sep 24, 2020 08:13 YENI RUVALCABA DO Sep 24, 2020 08:40
[2020-09-24] MEDS ORDERED: KCL 20 MEQ TAB (K-DUR) PO ONE (08:45)
[2020-09-24] MEDS ORDERED: KCL 20 MEQ TAB (K-DUR) PO SCH (09:00)
[2020-09-24] MEDS: PANTOPRAZOLE 40 MG (PROTONIX) VIAL IV SCH (09:01)
[2020-09-24] MEDS: DOCUSATE SODIUM 100 MG (COLACE) CAP PO SCH (09:01)
[2020-09-24 12:00] VITALS: BP 171/88
--- NOTE | 2020-09-24 13:18 | Discharge Inst-Surgical ---
Discharge Inst-Surgical Depart Medication/Instructions New, Converted or Re-Newed RX: RX Given to Pt/Family Patient Instructions Follow up Appt: Make appointment for 1 week. [phone] Instructions: No lifting greater than 20 pounds. No strenuous activity. May shower in 24 hours, no tub bath or soaking. Use incentive spirometer at home as directed. No Smoking Skin/Wound Care: May remove bandages in am. You need to leave the Dermabond on incision it will fall off on it's own. Symptoms to Report: Appetite Changes, Extremity Discoloration, Numbness/Tingling, Swelling Increased, Bleeding Excessive, Eyesight Changes, Pain Increased, Urine Color Change, Constipation(Persistent), Fever over 101 degree F, Pain/Pressure in chest, Urinating Difficulty, Cough Up/Vomit Blood, Heart Beat Irreg/Pounding, Pain/Pressure in jaw, Cramps in feet or legs, Lightheadedness, Pain/Pressure in shoulder, Diarrhea(Persistent), Memory Changes Suddenly, Questions/Concerns, Weight gain consecutive days, Dizziness/Fainting, Nausea/Vomiting, Shortness of Breath, Weight gain over 2 pounds If questions or concerns contact your physician Or seek help at emergency department. Activity Activity as Tolerated: Yes Activity Instructions: Avoid Stress to Incision Driving Instructions: No Driving/Refer to Dr. Giang Discharge Diet: Regular Diet Diet After 24 Hours: Clear Liquid if Nauseous If Any Problems/Questions/Issu: Contact Your Physician, Go to Emergency Room Skin/Wound Care Infection Signs and Symptoms: Increased Redness, Foul Odor of Wound, Increased Drainage, Skin Itchy or Has a Rash, Increased Swelling, Temperature Above 101 F Bathing Instructions: Shower Stitches/[place]/Dermabond Dis: Care of BEBE Calloway DO Sep 24, 2020 13:18
[2020-09-24] MEDS ORDERED: ACHD5005 PO (13:20)
[2020-09-24 14:24] VITALS: BP 171/88
[2020-09-25] MEDS ORDERED: PANTOPRAZOLE 40 MG (PROTONIX) TAB PO SCH (09:00)
== END 2020-09-24 14:15 | disposition home or self-care (01) | DRG 330 ==
LOC: UNDOADMOB 17:28 → 4TH 17:28 → OBSVTOIN 09-13 09:28 → INTOOBSV 09-13 09:28 → UNDODISIN 09-24 14:15
PROVIDERS: ADMIT Family Medicine; ATTEND Family Medicine
PROC: 0DBH8ZX Excision of Cecum, Via Natural or Artificial Opening Endoscopic, Diagnostic (ICD-10-PCS; 2020-09-19)
PROC: 0DBB8ZX Excision of Ileum, Via Natural or Artificial Opening Endoscopic, Diagnostic (ICD-10-PCS; 2020-09-19)
PROC: 0DBL8ZX Excision of Transverse Colon, Via Natural or Artificial Opening Endoscopic, Diagnostic (ICD-10-PCS; 2020-09-19)
PROC: 0DBM8ZX Excision of Descending Colon, Via Natural or Artificial Opening Endoscopic, Diagnostic (ICD-10-PCS; 2020-09-19)
PROC: 0DBU0ZZ Excision of Omentum, Open Approach (ICD-10-PCS; 2020-09-20)
PROC: 0D980ZZ Drainage of Small Intestine, Open Approach (ICD-10-PCS; 2020-09-20)
PROC: 0DTF0ZZ Resection of Right Large Intestine, Open Approach (ICD-10-PCS; principal; 2020-09-20 12:05)
DX: C18.0 Malignant neoplasm of cecum (principal); C78.6 Secondary malignant neoplasm of retroperitoneum and peritoneum; K56.690 Other partial intestinal obstruction; K57.32 Diverticulitis of large intestine without perforation or abscess without bleeding; K55.9 Vascular disorder of intestine, unspecified; E87.1 Hypo-osmolality and hyponatremia; J98.11 Atelectasis; D12.4 Benign neoplasm of descending colon; Z20.822 Contact with and (suspected) exposure to COVID-19; D12.3 Benign neoplasm of transverse colon; K52.9 Noninfective gastroenteritis and colitis, unspecified; R09.02 Hypoxemia; E87.6 Hypokalemia; K64.8 Other hemorrhoids; E03.9 Hypothyroidism, unspecified; G47.00 Insomnia, unspecified; I25.10 Atherosclerotic heart disease of native coronary artery without angina pectoris; I73.9 Peripheral vascular disease, unspecified; I10 Essential (primary) hypertension; E78.00 Pure hypercholesterolemia, unspecified; J44.9 Chronic obstructive pulmonary disease, unspecified; M19.91 Primary osteoarthritis, unspecified site; K21.9 Gastro-esophageal reflux disease without esophagitis; E11.9 Type 2 diabetes mellitus without complications; H54.3 Unqualified visual loss, both eyes; H91.93 Unspecified hearing loss, bilateral; Z97.4 Presence of external hearing-aid; Z95.5 Presence of coronary angioplasty implant and graft; Z95.1 Presence of aortocoronary bypass graft; Z87.891 Personal history of nicotine dependence; I25.2 Old myocardial infarction; Z79.01 Long term (current) use of anticoagulants; Z79.82 Long term (current) use of aspirin; Z79.891 Long term (current) use of opiate analgesic; Z88.0 Allergy status to penicillin; Z80.3 Family history of malignant neoplasm of breast; Z80.41 Family history of malignant neoplasm of ovary; Z80.8 Family history of malignant neoplasm of other organs or systems
CPT/HCPCS: 36415; 71046; 74019; 74022; 74177; 80048; 80053; 82150; 82962; 83690; 83735; 83880; 84484; 85007; 85025; 85027; 85652; 86141; 87081; 87635; 88305; 88341; 88342; 94640; 94664; 94760; 99211; G0378

== ENCOUNTER → 2020-09-11 | Outpatient (CLI) | payer MEDICARE, OTHER ==
[~2020-09-11] MED LIST changes: +ASPI-1238 PO; +CATHETER FLUSH 10 ML SYR IV PRN; +CYAN-23 PO; +HOLD METFORMIN - RECEIVED CONTRAST 20 ML VIAL IV SCH; +IOHEXOL 350 MG/ML 100 ML (OMNIPAQUE 350) VIAL IV ONE; +METF-865 PO
--- NOTE | 2020-09-11 15:17 | Diagnostic Imaging Report ---
PROCEDURE: CT abdomen and pelvis with contrast. TECHNIQUE: Multiple contiguous axial images were obtained through the abdomen and pelvis after administration of intravenous contrast. Auto Exposure Controls were utilized during the CT exam to meet ALARA standards for radiation dose reduction. All CT scans use one or more of the following dose optimizing techniques: automated exposure control, MA and/or KvP adjustment based on patient size and exam type or iterative reconstruction. INDICATION: Left lower quadrant abdominal pain. There are surgical changes in the left upper quadrant with mild dilatation of gas distended distal esophagus. There is mild low-density in the liver parenchyma which is likely due to steatosis. There is mild nodularity along the serosal surface of the right lobe of the liver. This is somewhat atypical and could be related to cirrhosis. No definite gallbladder, pancreatic, splenic or adrenal gland abnormality is identified. Kidneys are also unremarkable in appearance. There is moderate aortoiliac atherosclerotic calcification. There is extensive mural thickening of what appears to be the terminal ileum and cecum. This demonstrates mild surrounding edema and/or inflammation. The appendix is difficult to isolate visually but may be inflamed as well with extension medially into the mesentery. There is mild edema and/or inflammation surrounding the sigmoid colon in the left lower quadrant which may contribute to patient's symptoms. Surgical clips are seen in this region. Partially opacified urinary bladder is somewhat displaced toward the right but otherwise unremarkable. IMPRESSION: Extensive mural thickening with edema and inflammation in the right lower quadrant. This could be inflammatory in nature secondary to either inflammatory bowel disease or acute appendicitis. Given the overall appearance, neoplasm cannot be fully excluded and endoscopic follow-up after treatment for possible infection would be of value. In addition there is edema and/or inflammation adjacent to the sigmoid colon which may be on the basis of acute diverticulitis. Dictated by: Dictated on workstation # [id number]
== END ==
LOC: RAD 14:00
PROVIDERS: ATTEND Nurse Practitioner Family
DX: R10.32 Left lower quadrant pain (principal); R19.8 Other specified symptoms and signs involving the digestive system and abdomen
CPT/HCPCS: 74177

== ENCOUNTER 2020-09-27 08:06 | Emergency (ER) | payer MEDICARE, OTHER ==
[~2020-09-27] VITALS: Ht 172 cm; Wt 100.0 kg
[~2020-09-27 08:06] MED LIST changes: +ACHD5005 PO; +ASPI-1238 PO; +CYAN-23 PO; +METF-865 PO; +METR500T PO
[2020-09-27 08:11] VITALS: BP 176/84
--- NOTE | 2020-09-27 08:28 | ED Integumentary General ---
General Stated Complaint: SURGERY X1 WEEK,BLEEDING Source: patient Exam Limitations: no limitations History of Present Illness Date Seen by Provider: Sep 27, 2020 Time Seen by Provider: 08:11 Initial Comments Patient presents ER by private conveyance from home with his and chief complaint that he had some bloody drainage from the surgical wound that he noticed while he was in the shower today. Just started today. He is status post hemicolectomy for adenocarcinoma by Dr. Ramos and has an appointment to follow-up with Dr. Hyman next week for staging. Patient's diabetic but not dependent on insulin. He has had no fevers nausea or increasing pain, purulence or swelling. He is still on his antibiotics. He is not on probiotics. Allergies and Home Medications Allergies Coded Allergies: Penicillins (Verified Allergy, Mild, 04/19/18) Home Medications Albuterol Sulfate 1 Puff Puff, 2 PUFF IH Q4H PRN for SHORTNESS OF BREATH, (Reported) Aspirin 81 Mg Tablet.dr, 81 MG PO DAILY, (Reported) Atorvastatin Calcium 20 Mg Tablet, 10 MG PO DAILY, (Reported) TAKES 1/2 OF A 20MG TAB Cetirizine HCl 10 Mg Tablet, 10 MG PO HS, (Reported) Cholecalciferol (Vitamin D3) 125 Mcg Tablet, 125 MCG PO DAILY, (Reported) Cyanocobalamin (Vitamin B-12) 1,000 Mcg Capsule, 1,000 MCG PO DAILY, (Reported) Hydrocodone Bit/Acetaminophen 1 Tab Tab, 1 EA PO Q6HR PRN for PAIN-MODERATE (5- 7) Prescribed by: BEBE RAMOS on 09/24/20 1320 Levothyroxine Sodium 25 Mcg Tablet, 25 MCG PO DAILY, (Reported) Metoprolol Tartrate 25 Mg Tablet, 25 MG PO BID, (Reported) Metronidazole 500 Mg Tablet, 500 MG PO TID Prescribed by: YENI RUVALCABA on 09/17/20 1006 Pantoprazole Sodium 40 Mg Tablet.dr, 40 MG PO HS, (Reported) Sertraline HCl 50 Mg Tablet, 50 MG PO HS, (Reported) Umeclidinium Brm/Vilanterol Tr 1 Each Blst.w.dev, 1 EACH IH DAILY, (Reported) Patient Home Medication List Home Medication List Reviewed: Yes Review of Systems Review of Systems Constitutional: No chills, No diaphoresis EENTM: No ear discharge, No ear pain Respiratory: No cough, No short of breath Cardiovascular: No edema, No palpitations Gastrointestinal: No abdominal pain, No nausea, No vomiting Genitourinary: No discharge, No dysuria Musculoskeletal: No back pain, No joint pain Skin: see HPI All Other Systems Reviewed Negative Unless Noted: Yes Past Dzqcyrs-Tbembk-Xlgesi Hx Patient Social History Alcohol Use: Denies Use Smoking Status: Former Smoker Type Used: Cigarettes Former Smoker, Quit: Jul 11, 2008 Recent Hopitalizations: No Immunizations Up To Date Date of Pneumonia Vaccine: May 10, 2016 Date of Influenza Vaccine: Apr 24, 2020 Seasonal Allergies Seasonal Allergies: Yes Past Medical History Surgeries: Yes (shouolder bilat, hiatal hernia x3.lower herniax2,torn meniscus left) CABG, Coronary Stent Respiratory: Yes Sleep Apnea, COPD, Emphysema Currently Using CPAP: Yes Cardiac: Yes Coronary Artery Disease, Heart Attack, High Cholesterol, Hypertension Neurological: Yes TIA Reproductive Disorders: No Sexually Transmitted Disease: No HIV/AIDS: No Genitourinary: No Gastrointestinal: No Musculoskeletal: Yes (arthritis on hands) Arthritis Endocrine: Yes Diabetes, Non-Insulin dep Loss of Vision: Bilateral Hearing Impairment: Hard of Hearing, Bilateral Hearing Aide Cancer: No Psychosocial: No Integumentary: No Blood Disorders: No Adverse Reaction/Blood Tranf: No (N/A) Family Medical History No Pertinent Family Hx Physical Exam Vital Signs Capillary Refill : General Appearance: WD/WN, no apparent distress HEENT: PERRL/EOMI, pharynx normal Cardiovascular: normal peripheral pulses, regular rate, rhythm Respiratory: no respiratory distress, no accessory muscle use Gastrointestinal: normal bowel sounds, soft, other (There is a ventral incision line that is clean dry intact and approximated using shimon. About [address] down the incision there is a small area that is draining a serosanguineous, thin, nonopaque fluid. Minimal erythema and no induration around the surgical site.) Skin: other (Mild erythema bordering the clean, dry approximated skin edges. No induration. No purulence. Serosanguineous fluid draining about two thirds down the ventral wound. No maceration. Otherwise skin edges are clean dry and intact, approximated by shimon. Abdomen is soft, otherwise nontender away from the ventral surgical wound.) Progress/Results/Core Measures Progress Progress Note : Time: 08:22 Progress Note No evidence of abscess. The patient appears to have a draining seroma and so we gave him appropriate counseling of what to look for for signs of infection including purulence, induration, spreading redness, fever, increasing pain, nausea. He has a follow-up appointment established and we gave him return precautions. We did offer to do some labs today however explained to him that it does not appear infected and likely would not change treatment other than just to manage the drainage. Using a clinically supported decision-making process we agreed that further imaging and labs were not indicated and follow-up was appropriate. Departure Impression Primary Impression: Seroma after procedure Additional Impression: Status post right hemicolectomy Disposition: HOME, SELF-CARE Condition: Stable Departure-Patient Inst. Decision time for Depature: 08:24 Referrals: BEBE RAMOS JACQUELINE S DO (PCP/Family) Primary Care Physician Patient Instructions: Surgical Wound (DC), Wound Care Add. Discharge Instructions: You have a seroma which is a collection of fluid that occurs after a surgery and it is draining through your incision site. This is normal and it can go on for days or even weeks. Typically it will resolve on its own as the body heals from beneath. Continue your medications as prescribed. If you notice any signs of a wound infection then you need to return to either Dr. Ramos's care or the emergency room if it is after hours. Signs of a wound infection include increasing redness and induration or hardness around the site. Perceived warmth around the site of infection. Purulence from the wound, fever, increasing pain and nausea can also be signs of an infection. Change the wound dressings at least daily or more often if it becomes soiled all the way through. You do not want to plug the draining just catch the drainage in the dressing. Sometimes the surgeon will remove a staple to facilitate draining. Tuesday morning call Dr. Ramos's office and let them know you have a draining seroma. They will direct you by phone what they want you to do next. 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 Copy Copies To 1: BEBE RAMOS TITUS J Sep 27, 2020 08:28
== END 2020-09-27 08:38 | disposition home or self-care (01) ==
LOC: EDUNIT# 08:06 → ER 08:07
DX: K91.872 Postprocedural seroma of a digestive system organ or structure following a digestive system procedure (principal); I10 Essential (primary) hypertension; I25.2 Old myocardial infarction; I25.10 Atherosclerotic heart disease of native coronary artery without angina pectoris; E11.9 Type 2 diabetes mellitus without complications; E78.00 Pure hypercholesterolemia, unspecified; Z90.49 Acquired absence of other specified parts of digestive tract; Z86.73 Personal history of transient ischemic attack (TIA), and cerebral infarction without residual deficits; Z79.82 Long term (current) use of aspirin; Z79.890 Hormone replacement therapy; Z87.891 Personal history of nicotine dependence; Z95.5 Presence of coronary angioplasty implant and graft; Z95.1 Presence of aortocoronary bypass graft
CPT/HCPCS: 99282

== ENCOUNTER 2020-09-28 19:19 | Inpatient (IN) | payer MEDICARE, OTHER ==
[~2020-09-28] VITALS: Ht 172.7 cm; Wt 92.5 kg
[2020-09-28] MEDS ORDERED: LACTATED RINGERS 1,000 ML IV ONE (20:00)
[2020-09-28 20:14] LABS: BASOPHILS # (AUTO) 0.1 10^3/uL (0.0-0.1); BASOPHILS % (AUTO) 1 % (0-10); EOSINOPHILS # (AUTO) 0.2 10^3/uL (0.0-0.3); EOSINOPHILS % (AUTO) 1 % (0-10); HEMATOCRIT 38 % (40-54); HEMOGLOBIN 11.6 g/dL (13.3-17.7); LYMPHOCYTES # (AUTO) 1.4 10^3/uL (1.0-4.0); LYMPHOCYTES % (AUTO) 10 % (12-44); MEAN CORPUSCULAR HEMOGLOBIN 25 pg (25-34); MEAN CORPUSCULAR HGB CONC 31 g/dL (32-36); MEAN CORPUSCULAR VOLUME 81 fL (80-99); MEAN PLATELET VOLUME 9.2 fL (9.0-12.2); MONOCYTES # (AUTO) 0.9 10^3/uL (0.0-1.0); MONOCYTES % (AUTO) 6 % (0-12); NEUTROPHILS # (AUTO) 10.9 10^3/uL (1.8-7.8); NEUTROPHILS % (AUTO) 77 % (42-75); PLATELET COUNT 489 10^3/uL (130-400); WHITE BLOOD COUNT 14.2 10^3/uL (4.3-11.0)
[2020-09-28] MEDS ORDERED: fentaNYL INJ 100 MCG/2 ML AMP IVP ONE ×2 (20:15→21:15)
[2020-09-28 20:30] LABS: CLARITY,URINE SL CLOUDY; COLOR,URINE YELLOW; GLUCOSE, URINE (UA) NEGATIVE (NEGATIVE); KETONES,URINE TRACE (NEGATIVE); LEUKOCYTE ESTERASE ,URINE TRACE (NEGATIVE); NITRITE,URINE NEGATIVE (NEGATIVE); PROTEIN,URINE 2+ (NEGATIVE)
[2020-09-28 20:31] LABS: ALBUMIN 3.5 GM/DL (3.2-4.5); ANISOCYTOSIS SLIGHT; BAND NEUTROPHILS 1 %; BASOPHILS % (MANUAL) 0 %; BILIRUBIN,TOTAL 0.4 MG/DL (0.1-1.0); CALCIUM 9.6 MG/DL (8.5-10.1); CREATININE SERUM 1.21 MG/DL (0.60-1.30); EOSINOPHILS % (MANUAL) 1 %; LYMPHOCYTES % (MANUAL) 12 %; MONOCYTES % (MANUAL) 4 %; NEUTROPHILS % (MANUAL) 81 %; POLYCHROMASIA SLIGHT; POTASSIUM 3.2 MMOL/L (3.6-5.0); REACTIVE LYMPHOCYTES 1 %; TOTAL PROTEIN 7.9 GM/DL (6.4-8.2)
[2020-09-28 20:37] LABS: BILIRUBIN,URINE 2+ (NEGATIVE)
[2020-09-28 20:39] LABS: BACTERIA,URINE MODERATE /HPF; SQUAMOUS EPITHELIAL CELL,UR 0-2 /HPF
[2020-09-28] MEDS ORDERED: NS (IVPB) 250 ML ONE ×3 (20:39→23:53)
[2020-09-28] MEDS ORDERED: VANCOMYCIN 1000 MG/VIAL ONE ×2 (20:39→23:47)
[2020-09-28] MEDS ORDERED: VANCOMYCIN INJECTION 1,000 MG in NS (IVPB) 250 ML IV SCH ×2 (20:45→23:00)
[2020-09-28] MEDS ORDERED: IOHEXOL 350 MG/ML 100 ML (OMNIPAQUE 350) VIAL IV ONE (20:45)
[2020-09-28] MEDS ORDERED: PIPERACILLIN SODIUM/TAZOBACTAM 4.5 GM in NS (IVPB) 100 ML IV ONE (20:45)
[2020-09-28] MEDS ORDERED: NS 100 ML (IVPB) BAG IV ONE (20:45)
[2020-09-28] MEDS ORDERED: HOLD METFORMIN - RECEIVED CONTRAST 20 ML VIAL IV SCH (20:45)
[2020-09-28 20:48] LABS: INR 1.1 (0.8-1.4)
[2020-09-28 20:54] LABS: MAGNESIUM 1.7 MG/DL (1.6-2.4)
--- NOTE | 2020-09-28 20:55 | ED GI ---
General Chief Complaint: Post OP Complications/Pain Stated Complaint: COLON SURGERY 09/20, DIARRHEA Nursing Triage Note: TO ED VIA POV AND W/C TO ROOM 7 WITH C/O INCISION DRAINAGE FROM ABD SX. WAS SEEN IN ER FOR SAME COMPLAINTS YESTERDAY. Sepsis Screen: No Definite Risk Source of Information: Patient, Old Records History of Present Illness Date Seen by Provider: Sep 28, 2020 Time Seen by Provider: 19:55 Initial Comments PT ARRIVES VIA POV FROM HOME PT WAS ADMITTED 09/11/20 FOR ABDOMINAL PAIN, AND EVENTUALLY HAD RIGHT HEMICOLECTOMY ON 09/20/20 FOR MASS, WHICH WAS FOUND TO BE ADENOCARCINOMA. PT WAS DISMISSED ON 09/24/20. WAS INITIALLY SEEN BY DR. GARCIAS, THEN SURGERY DONE BY DR. MARTIN. IS TO SEE DR. 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 STATES IT HAS BEEN "POURING OUT" HAD SEVERE LOWER ABDOMINAL PAIN AFTER ARRIVAL HERE, THAT LASTED APPROXIMATELY 10 MINUTES, AND HAD A LARGE AMOUNT OF STOOL COME OUT OF THE INCISION, WITH SMALL AMOUNT OF BLOOD NO FEVER AT ANY TIME PT ATE [place] WITH [employer] TODAY, HAS HAD WATER AND ENSURE TO DRINK TODAY VOIDING BUT NOT MUCH NORMAL. PCP:DR RUVALCABA Allergies and Home Medications Allergies Coded Allergies: Penicillins (Verified Allergy, Mild, 04/19/18) Home Medications Albuterol Sulfate 1 Puff Puff, 2 PUFF IH Q4H PRN for SHORTNESS OF BREATH, (Reported) Aspirin 81 Mg Tablet., 81 MG PO DAILY, (Reported) Atorvastatin Calcium 20 Mg Tablet, 10 MG PO DAILY, (Reported) TAKES 1/2 OF A 20MG TAB Cetirizine HCl 10 Mg Tablet, 10 MG PO HS, (Reported) Cholecalciferol (Vitamin D3) 125 Mcg Tablet, 125 MCG PO DAILY, (Reported) Cyanocobalamin (Vitamin B-12) 1,000 Mcg Capsule, 1,000 MCG PO DAILY, (Reported) Hydrocodone Bit/Acetaminophen 1 Tab Tab, 1 EA PO Q6HR PRN for PAIN-MODERATE (5- 7) Prescribed by: BEBE MARTIN on 09/24/20 1320 Levothyroxine Sodium 25 Mcg Tablet, 25 MCG PO DAILY, (Reported) Metoprolol Tartrate 25 Mg Tablet, 25 MG PO BID, (Reported) Metronidazole 500 Mg Tablet, 500 MG PO TID Prescribed by: YENI RUVALCABA on 09/17/20 1006 Pantoprazole Sodium 40 Mg Tablet.dr, 40 MG PO HS, (Reported) Sertraline HCl 50 Mg Tablet, 50 MG PO HS, (Reported) Umeclidinium Brm/Vilanterol Tr 1 Each Blst.w.dev, 1 EACH IH DAILY, (Reported) Patient Home Medication List Home Medication List Reviewed: Yes Review of Systems Review of Systems Constitutional: no symptoms reported; No chills, No diaphoresis, No fever Respiratory: No Symptoms Reported Gastrointestinal: See HPI, Abdominal Pain, Nausea Genitourinary: See HPI Musculoskeletal: no symptoms reported Skin: no symptoms reported Psychiatric/Neurological: No Symptoms Reported Endocrine: No Symptoms Reported Hematologic/Lymphatic: No Symptoms Reported Past Dqprbmr-Obbnlb-Ywxoii Hx Past Med/Social Hx: Reviewed and Corrections made Patient Social History Alcohol Use: Denies Use Smoking Status: Former Smoker Type Used: Cigarettes Recent Infectious Disease Expo: No Recent Hopitalizations: No Immunizations Up To Date Date of Pneumonia Vaccine: May 10, 2016 Date of Influenza Vaccine: Apr 24, 2020 Seasonal Allergies Seasonal Allergies: Yes Past Medical History Surgeries: Yes (shouolder bilat, hiatal hernia x3.lower herniax2,torn meniscus left) Abdominal, Bowel Surgery, CABG, Coronary Stent, Joint Replacement, Orthopedic Respiratory: Yes (COVID-19 04/2020-HOSPITALIZED X 14 DAYS) Pneumonia, Sleep Apnea, COPD, Emphysema Currently Using CPAP: Yes Cardiac: Yes (CABG AND STENT X 1) Coronary Artery Disease, Heart Attack, High Cholesterol, Hypertension Neurological: Yes TIA Reproductive Disorders: No Sexually Transmitted Disease: No HIV/AIDS: No Genitourinary: No Gastrointestinal: Yes (ADENOCARCINOMA OF COLON DX 08/2020) Abdominal Hernia, Gastroesophageal Reflux, Diverticulosis, Polyps, Hiatal Hernia Musculoskeletal: Yes (ARTHRITIS IN HANDS, MULTIPLE ORTHO SURGERIES) Arthritis Endocrine: Yes Hypothyroidsim, Diabetes, Non-Insulin dep HEENT: Yes Loss of Vision: Bilateral Hearing Impairment: Hard of Hearing, Bilateral Hearing Aide Cancer: Yes Colon Did You Recieve Any Treatments: Yes What Type of Treatment Did You: Surgical Intervention ADENOCARCINOMA OF COLON -SURGERY 09/20/20 STAGING IS PENDING OF 09/28/20 Psychosocial: No Integumentary: No Blood Disorders: No Adverse Reaction/Blood Tranf: No (N/A) Family Medical History No Pertinent Family Hx SOCIAL HISTORY: -SMOKED 1 PPD, QUIT 2019 -ETOH--DENIES USE -DRUGS--DENIES USE PAST SURGICAL HISTORY: -RIGHT HEMICOLECTOMY 09/20/20 FOR MASS/ADENOCARCINOMA -HIATAL HERNIA REPAIR X 3 -BILATERAL INGUINAL HERNIA REPAIR X 2 -LEFT KNEE MENISCUS TEAR REPAIR -MULTIPLE CARDIAC CATHS--STENT X 1 TO LAD; LAST CARDIAC CATH 2016--PATENT STENT TO LAD, OCCLUDED ZELAYA, PATENT VEIN GRAFTS. SMALL VESSEL DISEASE. NO INTERVENTION -4 VESSEL CABG -BILATERAL SHOULDER REPLACEMENTS -COLONOSCOPIES WITH POLYPECTOMY-LAST ONE 03/2018 - Physical Exam Vital Signs Vital Signs - First Documented 09/28/20 19:32 Temp 36.2 Pulse 90 Resp 18 B/P (MAP) 138/85 (102) O2 Delivery Room Air Capillary Refill : Less Than 3 Seconds Height/Weight/BMI Height: 5'8.00" Weight: 238lbs. 5.0oz. [id number]; 33.00 BMI Method:Stated General Appearance: WD/WN, no apparent distress Neck: normal inspection Respiratory: normal breath sounds, no respiratory distress, no accessory muscle use Cardiovascular: regular rate, rhythm, no murmur Gastrointestinal: abnormal bowel sounds (RARE, HIGH-PITCHED), distended, guarding, tenderness (DIFFUSE TENDERNESS), other (WOUND DEHISCENCE WITH LARGE AMOUNT OF STOOL, AND SCANT AMOUNT OF BLOOD COMING FROM LOWER HALF OF INCISION. ) Extremities: normal inspection Back: no CVA tenderness Neurologic/Psychiatric: umbrella tipper hand II-XII nml as tested, no motor/sensory deficits, alert, oriented x 3 Skin: normal color, warm/dry Focused Exam Lactate Level Lactic Acid Level Progress/Results/Core Measures Results/Orders Lab Results Laboratory Tests Test 09/28/20 20:00 09/28/20 20:23 Range/Units White Blood Count 14.2 H 4.3-11.0 10^3/uL Red Blood Count 4.66 4.30-5.52 10^6/uL Hemoglobin 11.6 L 13.3-17.7 g/dL Hematocrit 38 L 40-54 % Mean Corpuscular Volume 81 80-99 fL Mean Corpuscular Hemoglobin 25 25-34 pg Mean Corpuscular Hemoglobin Concent 31 L 32-36 g/dL Red Cell Distribution Width 16.0 H 10.0-14.5 % Platelet Count 489 H 130-400 10^3/uL Mean Platelet Volume 9.2 9.0-12.2 fL Immature Granulocyte % (Auto) 5 % Neutrophils (%) (Auto) 77 H 42-75 % Lymphocytes (%) (Auto) 10 L 12-44 % Monocytes (%) (Auto) 6 0-12 % Eosinophils (%) (Auto) 1 0-10 % Basophils (%) (Auto) 1 0-10 % Neutrophils # (Auto) 10.9 H 1.8-7.8 10^3/uL Lymphocytes # (Auto) 1.4 1.0-4.0 10^3/uL Monocytes # (Auto) 0.9 0.0-1.0 10^3/uL Eosinophils # (Auto) 0.2 0.0-0.3 10^3/uL Basophils # (Auto) 0.1 0.0-0.1 10^3/uL Immature Granulocyte # (Auto) 0.7 H 0.0-0.1 10^3/uL Neutrophils % (Manual) 81 % Lymphocytes % (Manual) 12 % Monocytes % (Manual) 4 % Eosinophils % (Manual) 1 % Basophils % (Manual) 0 % Band Neutrophils 1 % Reactive Lymphocytes 1 % Polychromasia SLIGHT Anisocytosis SLIGHT Prothrombin Time 15.0 H 12.2-14.7 SEC INR Comment 1.1 0.8-1.4 Activated Partial Thromboplast Time 26 24-35 SEC Sodium Level 138 135-145 MMOL/L Potassium Level 3.2 L 3.6-5.0 MMOL/L Chloride Level 97 L 98-107 MMOL/L Carbon Dioxide Level 24 21-32 MMOL/L Anion Gap 17 H 5-14 MMOL/L Blood Urea Nitrogen 10 7-18 MG/DL Creatinine 1.21 0.60-1.30 MG/DL Estimat Glomerular Filtration Rate 60 BUN/Creatinine Ratio 8 Glucose Level 179 H 70-105 MG/DL Calcium Level 9.6 8.5-10.1 MG/DL Corrected Calcium 10.0 8.5-10.1 MG/DL Magnesium Level 1.7 1.6-2.4 MG/DL Total Bilirubin 0.4 0.1-1.0 MG/DL Aspartate Amino Transf (AST/SGOT) 16 5-34 U/L Alanine Aminotransferase (ALT/SGPT) 16 0-55 U/L Alkaline Phosphatase 64 40-136 U/L Total Protein 7.9 6.4-8.2 GM/DL Albumin 3.5 3.2-4.5 GM/DL Amylase Level 72 25-125 U/L Lipase 113 H 8-78 U/L Procalcitonin 0.26 H <0.10 NG/ML Urine Color YELLOW Urine Clarity SL CLOUDY Urine pH 6.0 5-9 Urine Specific [place] 1.025 H 1.016-1.022 Urine Protein 2+ H NEGATIVE Urine Glucose (UA) NEGATIVE NEGATIVE Urine Ketones TRACE H NEGATIVE Urine Nitrite NEGATIVE NEGATIVE Urine Bilirubin 2+ H NEGATIVE Urine Urobilinogen 0.2 < = 1.0 MG/DL Urine Leukocyte Esterase TRACE H NEGATIVE Urine RBC (Auto) NEGATIVE NEGATIVE Urine RBC NONE /HPF Urine WBC 5-10 H /HPF Urine Squamous Epithelial Cells 0-2 /HPF Urine Crystals NONE /LPF Urine Bacteria MODERATE H /HPF Urine Casts PRESENT /LPF Urine Hyaline Casts 5-10 H /LPF Urine Mucus MODERATE H /LPF Urine Culture Indicated YES My Orders Orders - ALEENA LANDAVERDE DO Ed Iv/Invasive Line Start (09/28/20 19:51) Monitor-Rhythm Ecg Trace Only (09/28/20 19:51) Amylase (09/28/20 19:51) Cbc With Automated Diff (09/28/20 19:51) Comprehensive Metabolic Panel (09/28/20 19:51) Lipase (09/28/20 19:51) Ua Culture If Indicated (09/28/20 19:51) Ed Iv/Invasive Line Start (09/28/20 19:51) Lactated Ringers (Lr 1000 Ml Iv Solution (09/28/20 20:00) Fentanyl Injection (Sublimaze Injection (09/28/20 20:15) Manual Differential (09/28/20 20:00) Magnesium (09/28/20 20:00) Procalcitonin (Pct) (09/28/20 20:00) Medications Given in ED Current Medications Medications Dose Ordered Sig/Akshat Route Start Time Stop Time Status Last Admin Dose Admin Fentanyl Citrate 50 mcg ONCE ONCE IVP 09/28/20 20:15 09/28/20 20:16 DC 09/28/20 20:16 50 MCG Lactated Ringer's 1,000 ml @ 0 mls/hr Q0M ONCE IV 09/28/20 20:00 09/28/20 20:01 DC 09/28/20 20:07 999 MLS/HR Vital Signs/I&O 09/28/20 19:32 Temp 36.2 Pulse 90 Resp 18 B/P (MAP) 138/85 (102) O2 Delivery Room Air Blood Pressure Mean: 102 Progress Progress Note : Progress Note GIVEN ZOFRAN FOR NAUSEA, FENTANYL AND MORPHINE FOR PAIN GIVEN ZOSYN + VANCOMYCIN NO DETERIORATION IN PT'S CONDITION DURING ER STAY Diagnostic Imaging Comments CXR--PER RADIOLOGIST REPORT FINDINGS: There are postoperative changes from CABG surgery. There is minimal basilar atelectasis. There is no effusion or pneumothorax. IMPRESSION: Minimal basilar atelectasis. This is improved compared to 09/18/2020. CT ABDOMEN/PELVIS--PER RADIOLOGIST REPORT VIA PHONE AT 2019 FINDINGS: There are postop changes from a vertical abdominal incision. There are some air bubbles within the incisional tract. There is an incisional hernia inferior to the umbilicus with an incarcerated loop of bowel. The incarcerated loop of bowel has a thickened wall suggesting strangulation. There appears to be a small bowel obstruction. Patient appears to have had a right hemicolectomy. There is a small amount of free fluid. There is no intraperitoneal free air. There is some atelectasis at the right lung base. Liver appears normal. Gallbladder appears normal. Pancreas appears normal. Spleen appears normal. Kidneys and adrenals appear normal. There is aortic atherosclerosis. Prostate is not enlarged. Urinary bladder is normal. IMPRESSION: Incisional hernia below the umbilicus with incarcerated loop of small bowel with thickened wall suggesting some vascular compromise and creating a small bowel obstruction. Reviewed: Reviewed by Me Departure Communication (Admissions) 2026--SPOKE WITH DR. GARCIAS. HE IS VERY FAMILIAR WITH PT. ORDERS NOTED FOR ANTIBIOTICS--HE STATES PATIENT HAS HAD ZOSYN WITHOUT ANY PROBLEMS. ADDITIONAL ORDERS NOTED. CT IS PENDING AT THIS TIME. 2114--SPOKE WITH DR. GARCIAS REGARDING CT REPORT. NO ADDITIONAL ORDERS AT THIS TIME. Impression Primary Impression: ABDOMINAL WOUND DEHISCENCE WITH FISTULA Additional Impressions: Incarcerated incisional hernia Adenocarcinoma of colon NIDDM UTI (urinary tract infection) HX OF CAD WITH CABG AND STENT COPD (chronic obstructive pulmonary disease) Disposition: ADMITTED INPATIENT Condition: Stable Admissions Decision to Admit Reason: Admit from ER (General) Decision to Admit/Date: Sep 28, 2020 Time/Decision to Admit Time: 21:20 Departure-Patient Inst. Referrals: YENI RUVALCABA DO (PCP/Family) Primary Care Physician ALEENA LANDAVERDE DO Sep 28, 2020 20:55
--- NOTE | 2020-09-28 21:07 | Diagnostic Imaging Report ---
INDICATION: Shortness of breath. EXAMINATION: Portable chest at 8:59 p.m. FINDINGS: There are postoperative changes from CABG surgery. There is minimal basilar atelectasis. There is no effusion or pneumothorax. IMPRESSION: Minimal basilar atelectasis. This is improved compared to 09/18/2020. Dictated by: Dictated on workstation # [id number]
--- NOTE | 2020-09-28 21:17 | Diagnostic Imaging Report ---
PROCEDURE: CT abdomen and pelvis with contrast. TECHNIQUE: Multiple contiguous axial images were obtained through the abdomen and pelvis after administration of intravenous contrast. Auto Exposure Controls were utilized during the CT exam to meet ALARA standards for radiation dose reduction. All CT scans use one or more of the following dose optimizing techniques: automated exposure control, MA and/or KvP adjustment based on patient size and exam type or iterative reconstruction. INDICATION: Incisional drainage. FINDINGS: There are postop changes from a vertical abdominal incision. There are some air bubbles within the incisional tract. There is an incisional hernia inferior to the umbilicus with an incarcerated loop of bowel. The incarcerated loop of bowel has a thickened wall suggesting strangulation. There appears to be a small bowel obstruction. Patient appears to have had a right hemicolectomy. There is a small amount of free fluid. There is no intraperitoneal free air. There is some atelectasis at the right lung base. Liver appears normal. Gallbladder appears normal. Pancreas appears normal. Spleen appears normal. Kidneys and adrenals appear normal. There is aortic atherosclerosis. Prostate is not enlarged. Urinary bladder is normal. IMPRESSION: Incisional hernia below the umbilicus with incarcerated loop of small bowel with thickened wall suggesting some vascular compromise and creating a small bowel obstruction. Critical finding Report was called Dr. Mehta in the [facility] ER at 9:13 p.m., by miguel. Dictated by: Dictated on workstation # [id number]
[2020-09-28] MEDS ORDERED: morphine INJ 4 MG/ML 1 ML (VIAL/SYRINGE) IVP ONE (21:30)
[2020-09-28] MEDS ORDERED: morphine INJ 10 MG/ML 1ML (SYR OR VIAL) ONE (21:34)
[2020-09-28] MEDS ORDERED: D5 1/2 NS W/KCL 20 MEQ/L 1,000 ML IV ONE (22:12)
[2020-09-28] MEDS ORDERED: ONDANSETRON 4 MG/2 ML (SDV) Z0FRAN IVP PRN (22:15)
[2020-09-28] MEDS ORDERED: TPN IV SCH (22:15)
[2020-09-28] MEDS: D5 1/2 NS W/KCL 20 MEQ/L 1,000 ML IV SCH (22:39)
[2020-09-28] MEDS: fentaNYL INJ 100 MCG/2 ML AMP IV PRN (22:40)
[2020-09-29] VITALS (9 sets, daily range): BP systolic 91–137; BP diastolic 35–71
[2020-09-29] MEDS ORDERED: NS (IVPB) 0 ML ONE (02:51)
[2020-09-29] MEDS ORDERED: PIPERACILLIN/TAZO 4.5 GM VIAL (ZOSYN) IV ONE (02:51)
[2020-09-29] MEDS: PIPERACILLIN/TAZO 4.5 GM/NS 100 ML IV SCH ×6 (03:15→21:49)
[2020-09-29] MEDS: D5 1/2 NS W/KCL 20 MEQ/L 1,000 ML IV SCH (05:04)
[2020-09-29 05:58] LABS: BASOPHILS # (AUTO) 0.1 10^3/uL (0.0-0.1); BASOPHILS % (AUTO) 0 % (0-10); EOSINOPHILS % (AUTO) 0 % (0-10); HEMATOCRIT 30 % (40-54); HEMOGLOBIN 9.6 g/dL (13.3-17.7); LYMPHOCYTES # (AUTO) 0.7 10^3/uL (1.0-4.0); LYMPHOCYTES % (AUTO) 5 % (12-44); MEAN CORPUSCULAR HEMOGLOBIN 25 pg (25-34); MEAN CORPUSCULAR HGB CONC 32 g/dL (32-36); MEAN CORPUSCULAR VOLUME 80 fL (80-99); MEAN PLATELET VOLUME 9.8 fL (9.0-12.2); MONOCYTES # (AUTO) 0.7 10^3/uL (0.0-1.0); MONOCYTES % (AUTO) 5 % (0-12); NEUTROPHILS # (AUTO) 13.4 10^3/uL (1.8-7.8); NEUTROPHILS % (AUTO) 89 % (42-75); PLATELET COUNT 385 10^3/uL (130-400)
[2020-09-29 06:14] LABS: ALBUMIN 2.9 GM/DL (3.2-4.5); CHLORIDE 102 MMOL/L (98-107); POTASSIUM 3.4 MMOL/L (3.6-5.0); SODIUM 138 MMOL/L (135-145)
[2020-09-29 06:15] LABS: CALCIUM 8.3 MG/DL (8.5-10.1)
[2020-09-29 06:16] LABS: GLUCOSE 211 MG/DL (70-105); TOTAL PROTEIN 6.3 GM/DL (6.4-8.2)
[2020-09-29 06:17] LABS: CARBON DIOXIDE 25 MMOL/L (21-32)
[2020-09-29 06:18] LABS: BILIRUBIN,TOTAL 0.5 MG/DL (0.1-1.0)
[2020-09-29 06:20] LABS: ALKALINE PHOSPHATASE 45 U/L (40-136); CREATININE SERUM 0.97 MG/DL (0.60-1.30); GFR ESTIMATED > 60
[2020-09-29 06:21] LABS: BUN/CREATININE RATIO 9
[2020-09-29 06:23] LABS: ALANINE AMINOTRANSFERASE 12 U/L (0-55)
[2020-09-29] MEDS: morphine INJ 4 MG/ML 1 ML (VIAL/SYRINGE) IV PRN ×2 (06:26→11:06)
[2020-09-29 07:10] LABS: PHOSPHORUS 2.8 MG/DL (2.3-4.7)
[2020-09-29 07:11] LABS: MAGNESIUM 1.5 MG/DL (1.6-2.4)
[2020-09-29] MEDS: fentaNYL INJ 100 MCG/2 ML AMP IV PRN ×2 (08:05→13:56)
[2020-09-29] MEDS: PANTOPRAZOLE 40 MG (PROTONIX) VIAL IV SCH (08:05)
[2020-09-29] MEDS: ENOXAPARIN 40 MG/0.4 ML (LOVENOX) SYR SC SCH (09:00)
[2020-09-29] MEDS: POTASSIUM CL 10 MEQ/50 ML IVPB (PRE-MIX) IV SCH ×3 (09:43→12:53)
[2020-09-29] MEDS: MAGNESIUM 1 GM/D5W 100 ML IVPB IV SCH ×2 (09:43→11:51)
[2020-09-29] MEDS ORDERED: VANCOMYCIN INJECTION 1,000 MG in NS (IVPB) 250 ML IV SCH (10:00)
[2020-09-29] MEDS ORDERED: METR-145 PO (11:41)
[2020-09-29] MEDS ORDERED: ACHD5005 PO (11:41)
[2020-09-29] MEDS ORDERED: TRZ50T PO (11:47)
[2020-09-29] MEDS ORDERED: ONDA4TAB11 PO (11:47)
[2020-09-29] MEDS: VANCOMYCIN 1500 MG/NS 500 ML IVPB IV SCH ×2 (12:40)
--- NOTE | 2020-09-29 13:11 | Consultation ---
History of Present Illness History of Present Illness Patient Consulted On(yokasta/time) 09/29/20 13:06 Date Seen by Provider: Sep 29, 2020 Time Seen by Provider: 13:06 History of Present Illness This is 64 year old male with recent right sided colectomy for colon cancer who presented to the ER with drainage from his lower abdominal wound after coughing and having an area open up. He was having increased abdominal pain and distention prior to the wound opening up. He states it was draining stool. CT scan done in the ER showed a incisional hernia with incarcerated bowel and fistula. The patient will be admitted for gut rest, IV antibiotics and surgery for definitive treatment. Allergies and Home Medications Allergies Coded Allergies: Penicillins (Verified Allergy, Mild, 04/19/18) Home Medications Albuterol Sulfate 1 Puff Puff, 2 PUFF IH Q4H PRN for SHORTNESS OF BREATH, (Reported) Aspirin 81 Mg Tablet.dr, 81 MG PO DAILY, (Reported) Atorvastatin Calcium 20 Mg Tablet, 10 MG PO DAILY, (Reported) TAKES 1/2 OF A 20MG TAB LAST FILLED 02-21-2020 #45/90 DAY SUPPLY Cetirizine HCl 10 Mg Tablet, 10 MG PO HS, (Reported) Cholecalciferol (Vitamin D3) 125 Mcg Tablet, 125 MCG PO DAILY, (Reported) Cyanocobalamin (Vitamin B-12) 1,000 Mcg Capsule, 1,000 MCG PO DAILY, (Reported) Hydrocodone/Acetaminophen 1 Each Tablet, 1 EA PO Q6H PRN for PAIN-MODERATE (5- 7), (Reported) Levothyroxine Sodium 25 Mcg Tablet, 25 MCG PO DAILY, (Reported) Metoprolol Tartrate 25 Mg Tablet, 25 MG PO BID, (Reported) Metronidazole 500 Mg Tablet, 500 MG PO TID, (Reported) FILLED 09-24-2020 #21/7 DAY SUPPLY Ondansetron 4 Mg Tab.rapdis, 4 MG PO Q4H PRN for NAUSEA/VOMITING-1ST LINE, (Reported) Pantoprazole Sodium 40 Mg Tablet.dr, 40 MG PO HS, (Reported) Sertraline HCl 50 Mg Tablet, 50 MG PO HS, (Reported) Trazodone HCl 50 Mg Tablet, 50-100 MG PO HS PRN for SLEEP, (Reported) Umeclidinium Brm/Vilanterol Tr 1 Each Blst.w.dev, 1 EACH IH DAILY, (Reported) Patient Home Medication List Home Medication List Reviewed: Yes Past Lmbjrzc-Zpcwno-Fbbjiw Hx Past Med/Social Hx: Reviewed Nursing Past Med/Soc Hx, Reviewed and Corrections made Patient Social History Alcohol Use: Denies Use Smoking Status: Former Smoker Type Used: Cigarettes Recent Infectious Disease Expo: No Recent Hopitalizations: No Have you traveled recently?: No Alcohol Use?: No Immunizations Up To Date Date of Pneumonia Vaccine: May 10, 2016 Date of Influenza Vaccine: Apr 24, 2020 Seasonal Allergies Seasonal Allergies: Yes Past Medical History Surgeries: Yes (shouolder bilat, hiatal hernia x3.lower herniax2,torn meniscus left) Abdominal, Bowel Surgery, CABG, Coronary Stent, Joint Replacement, Orthopedic Respiratory: Yes (COVID-19 04/2020-HOSPITALIZED X 14 DAYS) Pneumonia, Sleep Apnea, COPD, Emphysema Currently Using CPAP: Yes Cardiac: Yes (CABG AND STENT X 1) Coronary Artery Disease, Heart Attack, High Cholesterol, Hypertension Neurological: Yes TIA Reproductive Disorders: No Sexually Transmitted Disease: No HIV/AIDS: No Genitourinary: No Gastrointestinal: Yes (ADENOCARCINOMA OF COLON DX 08/2020) Abdominal Hernia, Gastroesophageal Reflux, Diverticulosis, Polyps, Hiatal Hernia Musculoskeletal: Yes (ARTHRITIS IN HANDS, MULTIPLE ORTHO SURGERIES) Arthritis Endocrine: Yes Hypothyroidsim, Diabetes, Non-Insulin dep HEENT: Yes Loss of Vision: Bilateral Hearing Impairment: Hard of Hearing, Bilateral Hearing Aide Cancer: Yes Colon Did You Recieve Any Treatments: Yes What Type of Treatment Did You: Surgical Intervention ADENOCARCINOMA OF COLON -SURGERY 09/20/20 STAGING IS PENDING OF 09/28/20 Psychosocial: No Integumentary: No Blood Disorders: No Adverse Reaction/Blood Tranf: No (N/A) Family Medical History No Pertinent Family Hx SOCIAL HISTORY: -SMOKED 1 PPD, QUIT 2019 -ETOH--DENIES USE -DRUGS--DENIES USE PAST SURGICAL HISTORY: -RIGHT HEMICOLECTOMY 09/20/20 FOR MASS/ADENOCARCINOMA -HIATAL HERNIA REPAIR X 3 -BILATERAL INGUINAL HERNIA REPAIR X 2 -LEFT KNEE MENISCUS TEAR REPAIR -MULTIPLE CARDIAC CATHS--STENT X 1 TO LAD; LAST CARDIAC CATH 2016--PATENT STENT TO LAD, OCCLUDED ZELAYA, PATENT VEIN GRAFTS. SMALL VESSEL DISEASE. NO INTERVENTION -4 VESSEL CABG -BILATERAL SHOULDER REPLACEMENTS -COLONOSCOPIES WITH POLYPECTOMY-LAST ONE 03/2018 - Review of Systems Review of Systems General: Fatigue HEENT: No Head Aches, No Visual Changes, No Eye Pain, No Ear Pain, No Dysphasia, No Sinus Congestion, No Post Nasal Drip, No Sore Throat, No Other Pulmonary: No Dyspnea, No Cough, No Pleuritic Chest Pain, No Other Cardiovascular: No: Chest Pain, Palpitations, Orthopnea, Paroxysmal Noc. Dyspnea, Edema, Lt Headedness, Other Gastrointestinal: Abdominal Pain, Constipation, Other (drainage from lower abdominal incision) Genitourinary: No Dysuria, No Frequency, No Incontinence, No Hematuria, No Retention, No Other Musculoskeletal: No: other, neck pain, shoulder pain, arm pain, back pain, hand pain, leg pain, foot pain Neurological: No: Weakness, Numbness, Incoordination, Change in speech, Confus ion, Seizures, Other Physical Exam Vital Signs Vital Signs - First Documented 09/28/20 09/28/20 09/28/20 19:32 21:55 22:02 Temp 36.2 Pulse 90 Resp 18 B/P (MAP) 138/85 (102) Pulse Ox 98 O2 Delivery Room Air O2 Flow Rate 2.00 Capillary Refill : Less Than 3 Seconds Height, Weight, BMI Height: 5'8.00" Weight: 238lbs. 5.0oz. 107.636616zc; 33.52 BMI Method:Stated General Appearance: Moderate Distress HEENT: Normal ENT Inspection Neck: Supple Respiratory: Lungs Clear Cardiovascular: Regular Rate, Rhythm Gastrointestinal: Soft, Tenderness, Other (lower abdominal incision with opening with ostomy bag in place with black stool/liquid in bag) Rectal: Deferred Back: No CVA Tenderness Extremity: Non Tender, No Calf Tenderness, No Pedal Edema Neurologic/Psychiatric: Other (groggy) Skin: Other (abdominal wound as above) Comments Laboratory Tests 09/28/20 20:00: White Blood Count 14.2H, Red Blood Count 4.66, Hemoglobin 11.6L, Hematocrit 38L, Mean Corpuscular Volume 81, Mean Corpuscular Hemoglobin 25, Mean Corpuscular Hemoglobin Concent 31L, Red Cell Distribution Width 16.0H, Platelet Count 489H, Mean Platelet Volume 9.2, Immature Granulocyte % (Auto) 5, Neutrophils (%) (Auto) 77H, Lymphocytes (%) (Auto) 10L, Monocytes (%) (Auto) 6, Eosinophils (%) (Auto) 1, Basophils (%) (Auto) 1, Neutrophils # (Auto) 10.9H, Lymphocytes # (Auto) 1.4, Monocytes # (Auto) 0.9, Eosinophils # (Auto) 0.2, Basophils # (Auto) 0.1, Immature Granulocyte # (Auto) 0.7H, Neutrophils % (Manual) 81, Lymphocytes % (Manual) 12, Monocytes % (Manual) 4, Eosinophils % (Manual) 1, Basophils % (Manual) 0, Band Neutrophils 1, Reactive Lymphocytes 1, Polychromasia SLIGHT, Anisocytosis SLIGHT, Prothrombin Time 15.0H, INR Comment 1.1, Activated Partial Thromboplast Time 26, Sodium Level 138, Potassium Level 3.2L, Chloride Level 97L , Carbon Dioxide Level 24, Anion Gap 17H, Blood Urea Nitrogen 10, Creatinine 1.21, Estimat Glomerular Filtration Rate 60, BUN/Creatinine Ratio 8, Glucose Level 179H, Calcium Level 9.6, Corrected Calcium 10.0, Magnesium Level 1.7, Total Bilirubin 0.4, Aspartate Amino Transf (AST/SGOT) 16, Alanine Aminotransferase (ALT/SGPT) 16, Alkaline Phosphatase 64, Total Protein 7.9, Albumin 3.5, Amylase Level 72, Lipase 113H, Procalcitonin 0.26H 09/28/20 20:23: Urine Color YELLOW, Urine Clarity SL CLOUDY, Urine pH 6.0, Urine Specific [place] 1.025H, Urine Protein 2+H, Urine Glucose (UA) NEGATIVE, Urine Ketones TRACEH, Urine Nitrite NEGATIVE, Urine Bilirubin 2+H, Urine Urobilinogen 0.2, Urine Leukocyte Esterase TRACEH, Urine RBC (Auto) NEGATIVE, Urine RBC NONE, Urine WBC 5-10H, Urine Squamous Epithelial Cells 0-2, Urine Crystals NONE, Urine Bacteria MODERATEH, Urine Casts PRESENT, Urine Hyaline Casts 5-10H, Urine Mucus MODERATEH, Urine Culture Indicated YES 09/28/20 20:40: Lactic Acid Level 1.65 09/29/20 05:20: White Blood Count 15.0H, Red Blood Count 3.80L, Hemoglobin 9.6L, Hematocrit 30L, Mean Corpuscular Volume 80, Mean Corpuscular Hemoglobin 25, Mean Corpuscular Hemoglobin Concent 32, Red Cell Distribution Width 15.9H, Platelet Count 385, Mean Platelet Volume 9.8, Immature Granulocyte % (Auto) 1, Neutrophils (%) (Auto) 89H, Lymphocytes (%) (Auto) 5L, Monocytes (%) (Auto) 5, Eosinophils (%) (Auto) 0, Basophils (%) (Auto) 0, Neutrophils # (Auto) 13.4H, Lymphocytes # (Auto) 0.7L, Monocytes # (Auto) 0.7, Eosinophils # (Auto) 0.0, Basophils # (Auto) 0.1, Immature Granulocyte # (Auto) 0.2H, Sodium Level 138, Potassium Level 3.4L, Chloride Level 102, Carbon Dioxide Level 25, Anion Gap 11, Blood Urea Nitrogen 9, Creatinine 0.97, Estimat Glomerular Filtration Rate > 60, BUN/Creatinine Ratio 9, Glucose Level 211H, Calcium Level 8.3L, Corrected Calcium 9.2, Magnesium Level 1.5L, Total Bilirubin 0.5, Aspartate Amino Transf (AST/SGOT) 12, Alanine Aminotransferase (ALT/SGPT) 12, Alkaline Phosphatase 45, Total Protein 6.3L, Albumin 2.9L, Phosphorus Level 2.8, Prealbumin [Pending], Triglycerides Level 87 09/29/20 11:52: Glucometer 151H Assessment/Plan Assessment/Plan Admission Dx 1. Abdominal Wound Dehiscence with Fistula/Incisional Hernia with Incarcerated Bowel--S/P recent right hemicolectomy for right sided colon cancer--Gut rest, IV antibiotics, surgical management 2. Hypertension--monitor and use lopressor prn 3. DMII--accuchecks with SSI 4. COPD--SVNs/inhalers prn YENI RUVALCABA DO Sep 29, 2020 13:11
[2020-09-29] MEDS ORDERED: ONDANSETRON 4 MG/2 ML (SDV) Z0FRAN ONE (14:30)
[2020-09-29] MEDS ORDERED: SEVOFLURANE (ULTANE) 15 ML INHAL SOLN ONE ×9 (14:30→17:28)
[2020-09-29] MEDS ORDERED: LIDOCAINE PF 2% 5 ML (XYLOCAINE) VIAL ONE (14:30)
[2020-09-29] MEDS ORDERED: ROCURONIUM 10 MG/ML 5 ML SYRINGE IV ONE (14:30)
[2020-09-29] MEDS ORDERED: proPOfol 200 MG/20 ML (DIPRIVAN) VIAL IV ONE (14:30)
[2020-09-29] MEDS ORDERED: MIDAZOLAM 2 MG/2 ML (VERSED) VIAL ONE (14:32)
[2020-09-29] MEDS ORDERED: fentaNYL INJ 100 MCG/2 ML AMP ONE (14:32)
--- NOTE | 2020-09-29 14:44 | History & Physical-Surgical ---
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 HPI per ED: PT ARRIVES VIA POV FROM HOME, PT WAS ADMITTED 09/11/20 FOR ABDOMINAL PAIN, AND EVENTUALLY HAD RIGHT HEMICOLECTOMY ON 09/20/20 FOR MASS, WHICH WAS FOUND TO BE ADENOCARCINOMA. PT WAS DISMISSED ON 09/24/20. WAS INITIALLY SEEN BY DR. DAILEY, THEN SURGERY DONE BY DR. MARTIN. IS TO SEE DR. SOTO THIS WEEK FOR STAGING. PT SEEN HERE IN ER YESTERDAY FOR SOME BLOODY DRAINAGE FROM THE WOUND, FELT TO BE A SEROMA PT STATES HE HAS NOT HAD A BM SINCE Tuesday09/24/20, SO TOOK A STOOL SOFTENER THIS AM, BEGAN HAVING NAUSEA AROUND 1900 TONIGHT THEN JUST PRIOR TO ARRIVAL, HE COUGHED, AND THEN BEGAN HAVING A LARGE AMOUNT OF STOOL PLUS BLOOD COMING FROM LOWER HALF OF THE INCISION. STATES IT HAS BEEN "POURING OUT" HAD SEVERE LOWER ABDOMINAL PAIN AFTER ARRIVAL HERE, THAT LASTED APPROXIMATELY 10 MINUTES, AND HAD A LARGE AMOUNT OF STOOL COME OUT OF THE INCISION, WITH SMALL AMOUNT OF BLOOD NO FEVER AT ANY TIME. PT ATE [place] WITH [employer] TODAY, HAS HAD WATER AND ENSURE TO DRINK TODAY, VOIDING BUT NOT MUCH NORMAL. When I saw pt this afternoon, his complained of pain 6 out of 10 and nurse states that wound care was just here and placed ostomy bag over area draining from lower incision. Date of Admission Sep 28, 2020 at 20:30 Time Seen by a Provider: 14:21 I consulted on this patient on 09/29/20 14:38 Attending Physician Magdy Dailey MD Admitting Physician Petra Ayala DO Consult Allergies and Home Medications Allergies Coded Allergies: Penicillins (Verified Allergy, Mild, 04/19/18) Home Medications Albuterol Sulfate 1 Puff Puff, 2 PUFF IH Q4H PRN for SHORTNESS OF BREATH, (Reported) Aspirin 81 Mg Tablet., 81 MG PO DAILY, (Reported) Atorvastatin Calcium 20 Mg Tablet, 10 MG PO DAILY, (Reported) TAKES 1/2 OF A 20MG TAB LAST FILLED 02-21-2020 #45/90 DAY SUPPLY Cetirizine HCl 10 Mg Tablet, 10 MG PO HS, (Reported) Cholecalciferol (Vitamin D3) 125 Mcg Tablet, 125 MCG PO DAILY, (Reported) Cyanocobalamin (Vitamin B-12) 1,000 Mcg Capsule, 1,000 MCG PO DAILY, (Reported) Hydrocodone/Acetaminophen 1 Each Tablet, 1 EA PO Q6H PRN for PAIN-MODERATE (5- 7), (Reported) Levothyroxine Sodium 25 Mcg Tablet, 25 MCG PO DAILY, (Reported) Metoprolol Tartrate 25 Mg Tablet, 25 MG PO BID, (Reported) Metronidazole 500 Mg Tablet, 500 MG PO TID, (Reported) FILLED 09-24-2020 #21/7 DAY SUPPLY Ondansetron 4 Mg Tab.rapdis, 4 MG PO Q4H PRN for NAUSEA/VOMITING-1ST LINE, (Reported) Pantoprazole Sodium 40 Mg Tablet.dr, 40 MG PO HS, (Reported) Sertraline HCl 50 Mg Tablet, 50 MG PO HS, (Reported) Trazodone HCl 50 Mg Tablet, 50-100 MG PO HS PRN for SLEEP, (Reported) Umeclidinium Brm/Vilanterol Tr 1 Each Blst.w.dev, 1 EACH IH DAILY, (Reported) Patient Home Medication List Home Medication List Reviewed: Yes Past Qruncwu-Cnmjrw-Hnfhdn Hx Patient Social History Smoking Status: Former Smoker Type Used: Cigarettes Recent Hopitalizations: No Alcohol Use?: No Have you traveled recently?: No Immunizations Up To Date Date of Pneumonia Vaccine: May 10, 2016 Date of Influenza Vaccine: Apr 24, 2020 Seasonal Allergies Seasonal Allergies: Yes Surgeries History of Surgeries: Yes (shouolder bilat, hiatal hernia x3.lower herniax2,torn meniscus left) Surgeries: Abdominal, Bowel Surgery, CABG, Coronary Stent, Joint Replacement, Orthopedic Respiratory History of Respiratory Disorde: Yes (COVID-19 04/2020-HOSPITALIZED X 14 DAYS) Respiratory Disorders: Pneumonia, Sleep Apnea, COPD, Emphysema Cardiovascular History of Cardiac Disorders: Yes (CABG AND STENT X 1) Cardiac Disorders: Coronary Artery Disease, Heart Attack, High Cholesterol, Hypertension Neurological History of Neurological Disord: Yes Neurological Disorders: TIA Reproductive System Hx Reproductive Disorders: No Sexually Transmitted Disease: No HIV/AIDS: No Genitourinary History of Genitourinary Disor: No Gastrointestinal History of Gastrointestinal Di: Yes (ADENOCARCINOMA OF COLON DX 08/2020) Gastrointestinal Disorders: Abdominal Hernia, Gastroesophageal Reflux, Diverticulosis, Polyps, Hiatal Hernia Musculoskeletal History of Musculoskeletal Dis: Yes (ARTHRITIS IN HANDS, MULTIPLE ORTHO SURGERIES) Musculoskeletal Disorders: Arthritis Endocrine History of Endocrine Disorders: Yes Endocrine Disorders: Hypothyroidsim, Diabetes, Non-Insulin dep HEENT History of HEENT Disorders: Yes Loss of Vision: Bilateral Hearing Impairment: Hard of Hearing, Bilateral Hearing Aide Cancer History of Cancer: Yes Cancer: Colon Psychosocial History of Psychiatric Problem: No Integumentary History of Skin or Integumenta: No Blood Transfusions History of Blood Disorders: No Adverse Reaction to a Blood Tr: No (N/A) Family Medical History Significant Family History: Diabetes (mother), Seizures (mother) Review of Systems Constitutional: malaise, weakness EENTM: No blurred vision, No double vision, No mouth pain, No mouth swelling, No epistaxis Respiratory: dyspnea on exertion; No hemoptysis, No short of breath Cardiovascular: No chest pain, No edema, No palpitations Gastrointestinal: abdominal pain; No dysphagia, No hematemesis, No jaundice; nausea; No vomiting Genitourinary: decreased output; No discharge, No dysuria, No hematuria Musculoskeletal: joint pain, joint swelling, muscle pain Skin: No change in color, No change in hair/nails; other (midline incision slightly red and drainage from lower portion of incision) Psychiatric/Neurological: Denies Anxiety, Denies Depressed, Denies Seizure, Denies Tremors pt denies any hx of abnormal bleeding or bruising Physical Exam Vital Signs Vital Signs - First Documented 09/28/20 09/28/20 09/28/20 19:32 21:55 22:02 Temp 36.2 Pulse 90 Resp 18 B/P (MAP) 138/85 (102) Pulse Ox 98 O2 Delivery Room Air O2 Flow Rate 2.00 Capillary Refill : Less Than 3 Seconds Height, Weight, BMI Height: 5'8.00" Weight: 238lbs. 5.0oz. 107.426767bn; 33.52 BMI Method:Stated General Appearance: Mild Distress Eyes: Bilateral Eye PERRL, Bilateral Eye EOMI HEENT: Moist Mucous Membranes; No Scleral Icterus (L), No Scleral Icterus (R) Neck: Normal Inspection, Non Tender, Supple Respiratory: Lungs Clear, Normal Breath Sounds, No Accessory Muscle Use, No Respiratory Distress Cardiovascular: Regular Rate, Rhythm, No Murmur Gastrointestinal: Distended, Tenderness, Other (appears to be succus coming from lower portion of incision) Rectal: Deferred Back: No CVA Tenderness, No Vertebral Tenderness Extremity: Non Tender, No Calf Tenderness, No Pedal Edema Neurologic/Psychiatric: Alert, Oriented x3, Normal Mood/Affect, mechanical insulator II-XII Norm as Tested Skin: Normal Color, Warm/Dry Lymphatic: No Adenopathy (neck, axilla or groin) Data Review Labs Laboratory Tests 09/28/20 20:00: White Blood Count 14.2H, Red Blood Count 4.66, Hemoglobin 11.6L, Hematocrit 38L, Mean Corpuscular Volume 81, Mean Corpuscular Hemoglobin 25, Mean Corpuscular Hemoglobin Concent 31L, Red Cell Distribution Width 16.0H, Platelet Count 489H, Mean Platelet Volume 9.2, Immature Granulocyte % (Auto) 5, Neutrophils (%) (Auto) 77H, Lymphocytes (%) (Auto) 10L, Monocytes (%) (Auto) 6, Eosinophils (%) (Auto) 1, Basophils (%) (Auto) 1, Neutrophils # (Auto) 10.9H, Lymphocytes # (Auto) 1.4, Monocytes # (Auto) 0.9, Eosinophils # (Auto) 0.2, Basophils # (Auto) 0.1, Immature Granulocyte # (Auto) 0.7H, Neutrophils % (Manual) 81, Lymphocytes % (Manual) 12, Monocytes % (Manual) 4, Eosinophils % (Manual) 1, Basophils % (Manual) 0, Band Neutrophils 1, Reactive Lymphocytes 1, Polychromasia SLIGHT, Anisocytosis SLIGHT, Prothrombin Time 15.0H, INR Comment 1.1, Activated Partial Thromboplast Time 26, Sodium Level 138, Potassium Level 3.2L, Chloride Level 97L , Carbon Dioxide Level 24, Anion Gap 17H, Blood Urea Nitrogen 10, Creatinine 1.21, Estimat Glomerular Filtration Rate 60, BUN/Creatinine Ratio 8, Glucose Level 179H, Calcium Level 9.6, Corrected Calcium 10.0, Magnesium Level 1.7, Total Bilirubin 0.4, Aspartate Amino Transf (AST/SGOT) 16, Alanine Aminotransferase (ALT/SGPT) 16, Alkaline Phosphatase 64, Total Protein 7.9, Albumin 3.5, Amylase Level 72, Lipase 113H, Procalcitonin 0.26H 09/28/20 20:23: Urine Color YELLOW, Urine Clarity SL CLOUDY, Urine pH 6.0, Urine Specific [place] 1.025H, Urine Protein 2+H, Urine Glucose (UA) NEGATIVE, Urine Ketones TRACEH, Urine Nitrite NEGATIVE, Urine Bilirubin 2+H, Urine Urobilinogen 0.2, Urine Leukocyte Esterase TRACEH, Urine RBC (Auto) NEGATIVE, Urine RBC NONE, Urine WBC 5-10H, Urine Squamous Epithelial Cells 0-2, Urine Crystals NONE, Urine Bacteria MODERATEH, Urine Casts PRESENT, Urine Hyaline Casts 5-10H, Urine Mucus MODERATEH, Urine Culture Indicated YES 09/28/20 20:40: Lactic Acid Level 1.65 09/29/20 05:20: White Blood Count 15.0H, Red Blood Count 3.80L, Hemoglobin 9.6L, Hematocrit 30L, Mean Corpuscular Volume 80, Mean Corpuscular Hemoglobin 25, Mean Corpuscular Hemoglobin Concent 32, Red Cell Distribution Width 15.9H, Platelet Count 385, Mean Platelet Volume 9.8, Immature Granulocyte % (Auto) 1, Neutrophils (%) (Auto) 89H, Lymphocytes (%) (Auto) 5L, Monocytes (%) (Auto) 5, Eosinophils (%) (Auto) 0, Basophils (%) (Auto) 0, Neutrophils # (Auto) 13.4H, Lymphocytes # (Auto) 0.7L, Monocytes # (Auto) 0.7, Eosinophils # (Auto) 0.0, Basophils # (Auto) 0.1, Immature Granulocyte # (Auto) 0.2H, Sodium Level 138, Potassium Level 3.4L, Chloride Level 102, Carbon Dioxide Level 25, Anion Gap 11, Blood Urea Nitrogen 9, Creatinine 0.97, Estimat Glomerular Filtration Rate > 60, BUN/Creatinine Ratio 9, Glucose Level 211H, Calcium Level 8.3L, Corrected Calcium 9.2, Magnesium Level 1.5L, Total Bilirubin 0.5, Aspartate Amino Transf (AST/SGOT) 12, Alanine Aminotransferase (ALT/SGPT) 12, Alkaline Phosphatase 45, Total Protein 6.3L, Albumin 2.9L, Phosphorus Level 2.8, Triglycerides Level 87 09/29/20 11:52: Glucometer 151H Radiology Date of Exam:09/28/20 CT ABDOMEN/PELVIS W PROCEDURE: CT abdomen and pelvis with contrast. TECHNIQUE: Multiple contiguous axial images were obtained through the abdomen and pelvis after administration of intravenous contrast. Auto Exposure Controls were utilized during the CT exam to meet ALARA standards for radiation dose reduction. All CT scans use one or more of the following dose optimizing techniques: automated exposure control, MA and/or KvP adjustment based on patient size and exam type or iterative reconstruction. INDICATION: Incisional drainage. FINDINGS: There are postop changes from a vertical abdominal incision. There are some air bubbles within the incisional tract. There is an incisional hernia inferior to the umbilicus with an incarcerated loop of bowel. The incarcerated loop of bowel has a thickened wall suggesting strangulation. There appears to be a small bowel obstruction. Patient appears to have had a right hemicolectomy. There is a small amount of free fluid. There is no intraperitoneal free air. There is some atelectasis at the right lung base. Liver appears normal. Gallbladder appears normal. Pancreas appears normal. Spleen appears normal. Kidneys and adrenals appear normal. There is aortic atherosclerosis. Prostate is not enlarged. Urinary bladder is normal. IMPRESSION: Incisional hernia below the umbilicus with incarcerated loop of small bowel with thickened wall suggesting some vascular compromise and creating a small bowel obstruction. Critical finding Report was called Dr. Mehta in the [facility] ER at 9:13 p.m., by miguel. Dictated by: Dictated on workstation # [id number] Dict: 09/28/202105 Trans: 09/28/202141 [id number] [id number] Interpreted by: ROXANNA HOPSON MD Electronically signed by: ROXANNA HOPSON MD 09/28/202141 Assessment/Plan Assessment/Plan Admission Diagonsis Fascial Dehiscence R/O Enterocutaneous Fistula Metastatic Colon CA Admission Status: Inpatient Order (span 2 midnights) Reason for Inpatient Admission: Pt is going to the OR, now and will be in the hospital recovering for at least 2-4 days. Assessment/Plan Fascial Dehiscence R/O Enterocutaneous Fistula Metastatic Colon CA Pt needs to go to the OR to repair/resect small bowel and/or fistula. CT shows fascial dehiscence and this will need to be repaired as well. I told pt that I think this fistula should be repaired now, there is no sense letting this drain into subQ fat. Perhaps if we could seen intestine or opening at top edge of skin, we could let it mature; however, right now it would cause more problems than it would solve. Will get consent for Exploratory Laparotomy with possible bowel resection, possible wound VAC placment and all other indicated procedures. All questions answered to pt's and his 's satisfaction. BEBE MARTIN DO Sep 29, 2020 14:44
[2020-09-29] MEDS: LACTATED RINGERS 1,000 ML IV PRN ×2 (14:55→16:50)
[2020-09-29] MEDS ORDERED: PHENYLEPHRINE 100 MCG/ML 10 ML (ANESTHESIA) SYR ONE (15:33)
[2020-09-29] MEDS ORDERED: [UNRECOGNIZED DRUG - OTHER] IV SCH ×10 (17:00)
[2020-09-29] MEDS ORDERED: SODIUM CHLORIDE IV SCH ×10 (17:00)
[2020-09-29] MEDS ORDERED: POTASSIUM ACETATE IV SCH ×10 (17:00)
[2020-09-29] MEDS ORDERED: SUCCINYLCHOLINE INJ 100 MG/5 ML SYR/VIAL ONE (17:27)
[2020-09-29] MEDS ORDERED: HALOPERIDOL 5 MG/ML (HALDOL) VIAL IV PRN (17:45)
[2020-09-29] MEDS ORDERED: PROPOFOL DRIP (ICU) 100 ML IV SCH (17:45)
[2020-09-29] MEDS ORDERED: PROPOFOL DRIP (ICU) 100 ML IV ONE (17:54)
[2020-09-29] MEDS ORDERED: fentaNYL DRIP PRE-MIX 250 ML IV ONE (17:54)
[2020-09-29] MEDS ORDERED: fentaNYL INJ 100 MCG/2 ML AMP IVP ONE (18:00)
[2020-09-29] MEDS ORDERED: ONDANSETRON 4 MG/2 ML (SDV) Z0FRAN IVP PRN (18:00)
[2020-09-29] MEDS ORDERED: morphine INJ 10 MG/ML 1ML (SYR OR VIAL) IVP ONE (18:00)
[2020-09-29] MEDS ORDERED: MEPERIDINE (DEMEROL) INJ 50 MG/ML IVP ONE (18:00)
[2020-09-29] MEDS: LACTATED RINGERS 1,000 ML IV SCH (18:08)
[2020-09-29] MEDS: fentaNYL DRIP PRE-MIX 250 ML IV SCH (18:09)
[2020-09-29] MEDS: PROPOFOL DRIP (ICU) 100 ML IV SCH (18:09)
[2020-09-29] MEDS: 1/2 NS IV SOLUTION 1,000 ML IV SCH (18:10)
--- NOTE | 2020-09-29 18:32 | Diagnostic Imaging Report ---
INDICATION: ET tube placement EXAM: Portable chest at 6:17 PM FINDINGS: There is an ET tube projecting over the trachea. There is an NG tube that enters the stomach. There are postoperative changes from CABG surgery. There is volume loss at both lung bases with questionable small effusions. IMPRESSION: Bibasilar atelectasis with suspected small bilateral pleural effusions. Dictated by: Dictated on workstation # [id number]
--- NOTE | 2020-09-29 19:38 | Progress Note-Post Operative ---
Post-Operative Progess Note Surgeon (s)/Inclusion Special Education Teacher (s) Surgeon BEBE MARTIN DO Inclusion Special Education Teacher: Sharifa Pre-Operative Diagnosis Enterotomy, Fascial dehiscence Post-Operative Diagnosis Same plus peritoneal carcinomatosis internal hernia ischemic small bowel Procedure & Operative Findings Date of Procedure 09/29/20 Procedure Performed/Findings Ex lap with small bowel resection x 2 Abthera wound VAC placement Anesthesia Type GET Estimated Blood Loss Estimated blood loss (mL): 150ml Specimens/Packing Specimens Removed portion of small bowel BEBE MARTIN DO Sep 29, 2020 19:38
[2020-09-30] MEDS: LACTATED RINGERS 1,000 ML IV SCH ×5 (00:50→22:58)
[2020-09-30] MEDS: VANCOMYCIN 1500 MG/NS 500 ML IVPB IV SCH ×4 (01:00→12:34)
[2020-09-30] MEDS ORDERED: NS IV 1000 ML 1,000 ML ONE (01:13)
[2020-09-30] MEDS ORDERED: NS IV 1000 ML 1,000 ML IV SCH (01:15)
[2020-09-30] MEDS: fentaNYL DRIP PRE-MIX 250 ML IV SCH ×4 (02:00→21:34)
[2020-09-30] MEDS: PROPOFOL DRIP (ICU) 100 ML IV SCH ×3 (02:02→18:16)
[2020-09-30] MEDS: NOREPINEPHRINE 4 MG/250 ML 250 ML IV SCH ×4 (02:04→21:51)
[2020-09-30 02:25] VITALS: BP 105/51
[2020-09-30] MEDS: D5 1/2 NS W/KCL 20 MEQ/L 1,000 ML IV SCH (02:56)
--- NOTE | 2020-09-30 03:23 | OPERATIVE REPORT ---
DATE OF SERVICE: 09/29/2020 PREOPERATIVE DIAGNOSIS: Fascial dehiscence, possible enterocutaneous fistula. POSTOPERATIVE DIAGNOSES: 1. Fascial dehiscence, possible enterocutaneous fistula. 2. Peritoneal carcinomatosis 3. Internal hernia. 4. Ischemic small bowel. SURGEON: Osmin Ramos DO RAIL BONDER: Troy Skaggs DO ANESTHESIA: General endotracheal tube. PROCEDURE PERFORMED: 1. Exploratory laparotomy with small bowel resection x2. 2. ABThera wound VAC placement. SPECIMENS: Two portions of small intestine. BLOOD LOSS: Less than 150 mL. FLUIDS: Per anesthesia. POSTOPERATIVE CONDITION: Stable. INDICATION FOR PROCEDURE: The patient is a 64-year-old male who was admitted last night with abdominal pain and what looked like succus coming from the bottom portion of his incision, thought to be fascial dehiscence with possible enterocutaneous fistula. FINDINGS: The patient had a portion of small bowel stuck in the fascial dehiscence and had a small hole as well as another hole found, and he had an internal hernia with intestine stuck under the internal hernia causing some ischemic bowel. PROCEDURE NOTE: After informed consent was obtained, the patient was brought to the operating room, placed on the operating table in supine position, sterilely prepped and draped in normal fashion. [place] were removed. The incision was opened could see inflamed bowel, placed an Omni retractor started gently taking down adhesions with blunt dissection, closed the enterotomy with 3-0 Vicryl pop-offs and then started running the bowel. I encountered an internal hernia with a small bowel stuck under this. This was from the enterocolotomy anastomosis. I found another area of another enterotomy. This was most likely iatrogenic as we are trying to get the bowel up to run it. I elected to resect these two portions. I used Endo-SRI come through the mesentery with a Bovie electrocautery, then an SRI 55 clamped across the intestine and held for 30 seconds, then fired, removing the superior and inferior portion of the intestine taking this out with the LigaSure, clamping, coagulating and transecting continued to run the bowel, we found an internal hernia. There was some small intestine stuck under here, able to finally get this out. I encountered some ischemic bowel. There was lot of carcinomatosis, some on the small intestine and some on the abdominal wall. Some of this carcinomatosis had actually caused the small bowel to stick in different spots and caused some ischemia. There was some minimal spillage of succuss into the abdominal cavity. I found another section of intestine, lot of serosal tears. There was a large mets on one of these pieces and so I resected this portion as well, reconnected using a SRI 55, one on either end, clamped and fired, thereby transecting creating a [id number] functional end-to-end anastomosis, then closed this enteroenterotomy with a TA 60 stapler. I did this for both resections. There were two separate resections of the small bowel and then closed the mesentery with 3-0 Vicryl pop-offs. Copiously irrigated with about 6 to 7 liters of warm normal saline, suctioned this out and then elected to place an ABThera VAC, so that we could go back the next day and make sure there is no more enterotomies, there is no ischemic bowel. Placed the ABThera in the abdomen. Two sponges over the top and then the occlusive dressing and hooked this to the ABThera VAC. The patient tolerated the procedure. We elected to leave him intubated since we are taking him back to the OR tomorrow. He was in stable condition and transferred to the ICU. Dr. Skaggs assisted on this case helping to identify anatomy, staple and hold anatomy out of the way. Job ID: [id number] DocumentID: [id number] Dictated Date: 09/29/2020 21:04:31 Laboratory Animal Caretaker Date: 09/30/2020 03:22:25 Dictated By: DO WILL JACQUES
[2020-09-30] MEDS: PIPERACILLIN/TAZO 4.5 GM/NS 100 ML IV SCH ×6 (03:46→18:16)
[2020-09-30 03:55] LABS: ABG BASE EXCESS -2.6 MMOL/L (-2.5-2.5); ABG OXYGEN SATURATION 94 % (94-100); ABG PCO2 48 MMHG (35-45); ABG PO2 84 MMHG (79-93); ABG TCO2 23.9 MMOL/L (21.0-31.0)
[2020-09-30 03:57] LABS: ALLENS TEST YES-POS; BASOPHILS # (AUTO) 0.1 10^3/uL (0.0-0.1); BASOPHILS % (AUTO) 0 % (0-10); EOSINOPHILS % (AUTO) 0 % (0-10); HEMATOCRIT 35 % (40-54); HEMOGLOBIN 10.5 g/dL (13.3-17.7); INSPIRED O2 30%; LYMPHOCYTES # (AUTO) 0.7 10^3/uL (1.0-4.0); LYMPHOCYTES % (AUTO) 4 % (12-44); MEAN CORPUSCULAR HEMOGLOBIN 25 pg (25-34); MEAN CORPUSCULAR HGB CONC 30 g/dL (32-36); MEAN CORPUSCULAR VOLUME 82 fL (80-99); MEAN PLATELET VOLUME 9.4 fL (9.0-12.2); MONOCYTES # (AUTO) 0.9 10^3/uL (0.0-1.0); MONOCYTES % (AUTO) 5 % (0-12); NEUTROPHILS % (AUTO) 88 % (42-75); PATIENT TEMP 38.4; PLATELET COUNT 425 10^3/uL (130-400); VENTILATOR YES
[2020-09-30 04:05] LABS: POTASSIUM 4.3 MMOL/L (3.6-5.0)
[2020-09-30 04:06] LABS: CALCIUM 6.9 MG/DL (8.5-10.1)
[2020-09-30 04:10] LABS: CREATININE SERUM 1.64 MG/DL (0.60-1.30); PHOSPHORUS 3.3 MG/DL (2.3-4.7)
[2020-09-30 04:12] LABS: MAGNESIUM 1.8 MG/DL (1.6-2.4)
--- NOTE | 2020-09-30 05:38 | Pulmonary Consultation ---
History of Present Illness History of Present Illness Date Seen by Provider: Sep 30, 2020 Time Seen by Provider: 05:31 Date of Admission History of Present Illness 64yo with hx colon cancer s/p resection 09/20 pt was discharged and then returned to ED 09/28 secondary to worsening abdominal pain and wound dehiscence. Pt was admitted to medical floor 09/28 and taken back to surgery 09/29 for exlab and found to have bowel obstruction. He was transferred to ICU on ventilator after surgery yesterday. Plan is to go back to surgery today. Allergies and Home Medications Allergies Coded Allergies: Penicillins (Verified Allergy, Mild, 04/19/18) Home Medications Albuterol Sulfate 1 Puff Puff, 2 PUFF IH Q4H PRN for SHORTNESS OF BREATH, (Reported) Aspirin 81 Mg Tablet.dr, 81 MG PO DAILY, (Reported) Atorvastatin Calcium 20 Mg Tablet, 10 MG PO DAILY, (Reported) TAKES 1/2 OF A 20MG TAB LAST FILLED 02-21-2020 #45/90 DAY SUPPLY Cetirizine HCl 10 Mg Tablet, 10 MG PO HS, (Reported) Cholecalciferol (Vitamin D3) 125 Mcg Tablet, 125 MCG PO DAILY, (Reported) Cyanocobalamin (Vitamin B-12) 1,000 Mcg Capsule, 1,000 MCG PO DAILY, (Reported) Hydrocodone/Acetaminophen 1 Each Tablet, 1 EA PO Q6H PRN for PAIN-MODERATE (5- 7), (Reported) Levothyroxine Sodium 25 Mcg Tablet, 25 MCG PO DAILY, (Reported) Metoprolol Tartrate 25 Mg Tablet, 25 MG PO BID, (Reported) Metronidazole 500 Mg Tablet, 500 MG PO TID, (Reported) FILLED 09-24-2020 #21/7 DAY SUPPLY Ondansetron 4 Mg Tab.rapdis, 4 MG PO Q4H PRN for NAUSEA/VOMITING-1ST LINE, (Reported) Pantoprazole Sodium 40 Mg Tablet.dr, 40 MG PO HS, (Reported) Sertraline HCl 50 Mg Tablet, 50 MG PO HS, (Reported) Trazodone HCl 50 Mg Tablet, 50-100 MG PO HS PRN for SLEEP, (Reported) Umeclidinium Brm/Vilanterol Tr 1 Each Blst.w.dev, 1 EACH IH DAILY, (Reported) Past Unttjhu-Cladyc-Tbbfwu Hx Past Med/Social Hx: Reviewed Nursing Past Med/Soc Hx, Reviewed and Corrections made Patient Social History Alcohol Use: Denies Use Smoking Status: Former Smoker Type Used: Cigarettes Recent Infectious Disease Expo: No Recent Hopitalizations: No Have you traveled recently?: No Alcohol Use?: No Immunizations Up To Date Date of Pneumonia Vaccine: May 10, 2016 Date of Influenza Vaccine: Apr 24, 2020 Seasonal Allergies Seasonal Allergies: Yes Past Medical History Surgeries: Yes (shouolder bilat, hiatal hernia x3.lower herniax2,torn meniscus left) Abdominal, Bowel Surgery, CABG, Coronary Stent, Joint Replacement, Orthopedic Respiratory: Yes (COVID-19 04/2020-HOSPITALIZED X 14 DAYS) Pneumonia, Sleep Apnea, COPD, Emphysema Currently Using CPAP: Yes Cardiac: Yes (CABG AND STENT X 1) Coronary Artery Disease, Heart Attack, High Cholesterol, Hypertension Neurological: Yes TIA Reproductive Disorders: No Sexually Transmitted Disease: No HIV/AIDS: No Genitourinary: No Gastrointestinal: Yes (ADENOCARCINOMA OF COLON DX 08/2020) Abdominal Hernia, Gastroesophageal Reflux, Diverticulosis, Polyps, Hiatal Hernia Musculoskeletal: Yes (ARTHRITIS IN HANDS, MULTIPLE ORTHO SURGERIES) Arthritis Endocrine: Yes Hypothyroidsim, Diabetes, Non-Insulin dep HEENT: Yes Loss of Vision: Bilateral Hearing Impairment: Hard of Hearing, Bilateral Hearing Aide Cancer: Yes Colon Did You Recieve Any Treatments: Yes What Type of Treatment Did You: Surgical Intervention ADENOCARCINOMA OF COLON -SURGERY 09/20/20 STAGING IS PENDING OF 09/28/20 Psychosocial: No Integumentary: No Blood Disorders: No Adverse Reaction/Blood Tranf: No (N/A) Family Medical History Diabetes (mother), Seizures (mother) SOCIAL HISTORY: -SMOKED 1 PPD, QUIT 2019 -ETOH--DENIES USE -DRUGS--DENIES USE PAST SURGICAL HISTORY: -RIGHT HEMICOLECTOMY 09/20/20 FOR MASS/ADENOCARCINOMA -HIATAL HERNIA REPAIR X 3 -BILATERAL INGUINAL HERNIA REPAIR X 2 -LEFT KNEE MENISCUS TEAR REPAIR -MULTIPLE CARDIAC CATHS--STENT X 1 TO LAD; LAST CARDIAC CATH 2016--PATENT STENT TO LAD, OCCLUDED ZELAYA, PATENT VEIN GRAFTS. SMALL VESSEL DISEASE. NO INTERVENTION -4 VESSEL CABG -BILATERAL SHOULDER REPLACEMENTS -COLONOSCOPIES WITH POLYPECTOMY-LAST ONE 03/2018 - Sepsis Event Evaluation Height, Weight, BMI Height: 5'8.00" Weight: 238lbs. 5.0oz. 107.339627cp; 33.52 BMI Method:Stated Exam Exam Vital Signs Date Time Temp Pulse Resp B/P (MAP) Pulse Ox O2 Delivery O2 Flow Rate FiO2 09/30/20 04:32 92 88/51 09/30/20 03:38 98 84/42 09/30/20 02:28 Mechanical Ventilator 30.00 09/30/20 02:26 87 105/51 09/30/20 02:25 87 20 98 40 09/30/20 02:04 87 70/43 09/30/20 02:02 87 70/43 09/30/20 01:00 96 09/30/20 00:08 36.7 09/30/20 00:05 37.3 09/30/20 00:04 34.9 09/29/20 23:23 100 20 98 40 09/29/20 23:00 99 17 91/56 (68) 98 Mechanical Ventilator 40.00 09/29/20 22:30 99 18 98/60 (73) 97 Mechanical Ventilator 40.00 09/29/20 22:29 Mechanical Ventilator 40.00 09/29/20 22:22 97 23 98 45 09/29/20 22:00 98 19 95/61 (72) 97 Mechanical Ventilator 45.00 09/29/20 21:42 35.6 09/29/20 21:42 Mechanical Ventilator 45.00 09/29/20 21:00 95 25 114/65 (81) 98 Mechanical Ventilator 50.00 09/29/20 20:00 91 18 124/67 (86) 98 Mechanical Ventilator 50.00 09/29/20 19:00 91 22 136/69 (91) 97 Mechanical Ventilator 50.00 09/29/20 19:00 91 09/29/20 18:15 36.1 22 98/35 (56) 99 Mechanical Ventilator 09/29/20 18:15 Mechanical Ventilator 09/29/20 18:09 92 130/65 09/29/20 18:00 23 136/71 (92) 100 Mechanical Ventilator 09/29/20 18:00 93 23 136/71 (92) 95 Mechanical Ventilator 50.00 09/29/20 18:00 Mechanical Ventilator 09/29/20 17:45 36.5 12 137/64 (88) 100 Mechanical Ventilator 09/29/20 17:45 93 23 100 100 09/29/20 17:45 Mechanical Ventilator 09/29/20 12:32 95 09/29/20 12:00 37.6 94 20 119/56 (77) 94 Nasal Cannula 2.00 09/29/20 09:58 94 Nasal Cannula 2.00 09/29/20 08:24 37.8 92 16 127/62 (83) 94 Nasal Cannula 2.00 09/29/20 08:00 94 Nasal Cannula 2.00 09/29/20 08:00 94 Nasal Cannula 2.00 09/29/20 06:37 91 I & O 09/30/20 07:00 Intake Total 4385 ml Output Total 1735 ml Balance 2650 ml Height & Weight Height: 5'8.00" Weight: 238lbs. 5.0oz. 107.877139eg; 33.52 BMI Method:Stated General Appearance: Mild Distress HEENT: Moist Mucous Membranes; No Scleral Icterus (L), No Scleral Icterus (R) Neck: Normal Inspection, Non Tender, Supple Respiratory: Lungs Clear, Normal Breath Sounds, No Accessory Muscle Use, No Respiratory Distress Cardiovascular: Regular Rate, Rhythm, No Murmur Capillary Refill: Less Than 3 Seconds Gastrointestinal: abnormal bowel sounds (RARE, HIGH-PITCHED), distended, guarding, tenderness (DIFFUSE TENDERNESS), other (WOUND DEHISCENCE WITH LARGE AMOUNT OF STOOL, AND SCANT AMOUNT OF BLOOD COMING FROM LOWER HALF OF INCISION. ) Extremity: Non Tender, No Calf Tenderness, No Pedal Edema Neurologic/Psychiatric: Alert, Oriented x3, Normal Mood/Affect, pile operator II-XII Norm as Tested Skin: Normal Color, Warm/Dry Lymphatic: No Adenopathy (neck, axilla or groin) Results Lab Laboratory Tests 09/28/20 20:00 09/29/20 05:20 09/30/20 03:40 Assessment/Plan Assessment/Plan Acute respiratory failure s/p surgery -Plan is back to surgery today -Vent 500/12/5-- Fi02 30% -ABG reviewed -Change to 450/24/5 repeat ABG 1hr after change -EICU doctor managed patient and vent through the night. Intra abdominal severe septic shock -Continue Vanco and Zosyn -Boogie cultures pending -Levophed add Vasopressin Hx of hypothyroid -start Synthroid IV Acute renal failure with oligura -Aggressive IVF -Pt has had 2liters through the night -Bolus another liter of LR Malnutrition -TPN per surgery Abdominal Wound Dehiscence with Fistula/Incisional Hernia with Incarcerated Bowel 09/29 S/P recent right hemicolectomy for right sided colon cancer 09/20 COPD hx -Start SVNS DMII -Monitor -SSI RACHEL HANKINS DO Sep 30, 2020 05:38
[2020-09-30] MEDS ORDERED: LACTATED RINGERS 1,000 ML IV SCH (05:45)
[2020-09-30] MEDS ORDERED: LEVOTHYROXINE 100 MCG INJ (SYNTHROID) VIAL IV SCH (06:00)
[2020-09-30] MEDS: inSUlin ASPART (NovoLOG) 1 UNIT/0.01 ML (CHARGE PER UNIT) SC SCH ×3 (06:37→17:16)
[2020-09-30] MEDS: RT-ALBUTEROL/IPRATROPIUM 3 ML (DUONEB) VIAL INH SCH ×5 (07:14→21:41)
[2020-09-30 07:18] VITALS: BP 131/68
--- NOTE | 2020-09-30 07:46 | Anesthesia-General Post-Op ---
General Patient Condition Mental Status/LOC: Same as Preop Cardiovascular: Satisfactory Nausea/Vomiting: Absent Respiratory: Satisfactory Pain: Controlled Complications: Absent Post Op Complications Complications None Follow Up Care/Instructions Patient Instructions None needed. Anesthesia/Patient Condition Patient Condition Patient is doing well, no complaints, stable vital signs, no apparent adverse anesthesia problems. No complications reported per nursing. TABATHA FUNES CRNA Sep 30, 2020 07:46
--- NOTE | 2020-09-30 07:53 | Progress Note - Surgery ---
ALICIA BERMAN MED STUDENT 09/30/20 0753: Subjective Date Seen by a Provider: Sep 30, 2020 Time Seen by a Provider: 07:30 Subjective/Events-last exam Patient is lying in bed intubated. Pts is in room and has no specific questions or concerns at this time. Wound vac is in place and has drained about 450ml. NG tube in place and about 400ml. Has remained sedated since surgery yesterday. Nurse states he did become a little hypotensive overnight. Has not passed any blood. Pt slightly nods head when asked if pain is better. Unable to obtain ROS due to pt being intubated. Objective Exam Vital Signs Date Time Temp Pulse Resp B/P (MAP) Pulse Ox O2 Delivery O2 Flow Rate FiO2 09/30/20 07:18 92 24 96 30 09/30/20 06:00 38.2 88 17 109/59 (76) 96 Mechanical Ventilator 30.00 09/30/20 05:00 38.3 90 18 111/61 (78) 96 Mechanical Ventilator 30.00 09/30/20 04:32 92 88/51 09/30/20 04:00 94 Mechanical Ventilator 30 09/30/20 04:00 38.4 81 15 112/61 (78) 95 Mechanical Ventilator 30.00 09/30/20 03:38 98 84/42 09/30/20 03:00 38.3 93 18 104/54 (71) 93 Mechanical Ventilator 30.00 09/30/20 02:28 Mechanical Ventilator 30.00 09/30/20 02:26 87 105/51 09/30/20 02:25 87 20 98 40 09/30/20 02:04 87 70/43 09/30/20 02:02 87 70/43 09/30/20 02:00 38.5 87 17 70/43 (52) 96 Mechanical Ventilator 40.00 09/30/20 01:00 96 09/30/20 01:00 38.5 96 29 70/44 (53) 98 Mechanical Ventilator 40.00 09/30/20 00:08 36.7 09/30/20 00:05 37.3 09/30/20 00:04 34.9 09/30/20 00:00 96 19 86/48 (61) 97 Mechanical Ventilator 40.00 09/30/20 00:00 97 Mechanical Ventilator 40 09/29/20 23:23 100 20 98 40 09/29/20 23:00 99 17 91/56 (68) 98 Mechanical Ventilator 40.00 09/29/20 22:30 99 18 98/60 (73) 97 Mechanical Ventilator 40.00 09/29/20 22:29 Mechanical Ventilator 40.00 09/29/20 22:22 97 23 98 45 09/29/20 22:00 98 19 95/61 (72) 97 Mechanical Ventilator 45.00 09/29/20 21:42 35.6 09/29/20 21:42 Mechanical Ventilator 45.00 09/29/20 21:00 95 25 114/65 (81) 98 Mechanical Ventilator 50.00 09/29/20 20:00 98 Mechanical Ventilator 50 09/29/20 20:00 91 18 124/67 (86) 98 Mechanical Ventilator 50.00 09/29/20 19:00 91 22 136/69 (91) 97 Mechanical Ventilator 50.00 09/29/20 19:00 91 09/29/20 18:15 36.1 22 98/35 (56) 99 Mechanical Ventilator 09/29/20 18:15 Mechanical Ventilator 09/29/20 18:09 92 130/65 09/29/20 18:00 23 136/71 (92) 100 Mechanical Ventilator 09/29/20 18:00 93 23 136/71 (92) 95 Mechanical Ventilator 50.00 09/29/20 18:00 Mechanical Ventilator 09/29/20 17:45 36.5 12 137/64 (88) 100 Mechanical Ventilator 09/29/20 17:45 93 23 100 100 09/29/20 17:45 Mechanical Ventilator 09/29/20 12:32 95 09/29/20 12:00 37.6 94 20 119/56 (77) 94 Nasal Cannula 2.00 09/29/20 09:58 94 Nasal Cannula 2.00 09/29/20 08:24 37.8 92 16 127/62 (83) 94 Nasal Cannula 2.00 09/29/20 08:00 94 Nasal Cannula 2.00 09/29/20 08:00 94 Nasal Cannula 2.00 I & O 09/30/20 07:00 Intake Total 4385 ml Output Total 2310 ml Balance 2075 ml Capillary Refill : Less Than 3 SecondsLess Than 3 Seconds General Appearance: Other (Intubated, Sedated) Respiratory: Chest Non Tender, Lungs Clear, Normal Breath Sounds, No Accessory Muscle Use, No Respiratory Distress, Other (Vent tubes in place) Cardiovascular: Regular Rate, Rhythm, No Edema, No Murmur, Normal Peripheral Pulses Peripheral Pulses: 2+ Radial Pulses (R), 2+ Radial Pulses (L) Gastrointestinal: abnormal bowel sounds, distended, tenderness, other (Vaccumed wound with wound vac in place, draining. No redness, discharge, or leaking from wound noted.) Extremity: Normal Inspection, No Pedal Edema Neurologic/Psychiatric: Other (Sedated, unresponsive) Skin: Normal Color, Warm/Dry Results Lab Laboratory Tests 09/29/20 11:52: Glucometer 151H 09/29/20 15:22: Coronavirus (COVID-19)(PCR) Negative 09/29/20 18:00: Glucometer 147H 09/29/20 19:29: Magnesium Level 1.8, Triglycerides Level 107 09/30/20 00:01: Glucometer 253H 09/30/20 03:40: White Blood Count 17.0H, Red Blood Count 4.20L, Hemoglobin 10.5L, Hematocrit 35L , Mean Corpuscular Volume 82, Mean Corpuscular Hemoglobin 25, Mean Corpuscular Hemoglobin Concent 30L, Red Cell Distribution Width 16.4H, Platelet Count 425H, Mean Platelet Volume 9.4, Immature Granulocyte % (Auto) 2, Neutrophils (%) (Auto) 88H, Lymphocytes (%) (Auto) 4L, Monocytes (%) (Auto) 5, Eosinophils (%) (Auto) 0, Basophils (%) (Auto) 0, Neutrophils # (Auto) 15.0H, Lymphocytes # (Auto) 0.7L, Monocytes # (Auto) 0.9, Eosinophils # (Auto) 0.0, Basophils # (Auto) 0.1, Immature Granulocyte # (Auto) 0.3H, Blood Gas Puncture Site RIGHT RADIAL, Blood Gas Patient Temperature 38.4, Arterial Blood pH 7.30*L, Arterial Blood Partial Pressure CO2 48H, Arterial Blood Partial Pressure O2 84, Arterial Blood HCO3 23, Arterial Blood Total CO2 23.9, Arterial Blood Oxygen Saturation 94, Arterial Blood Base Excess -2.6L, Peter Test YES-POS, Blood Gas Ventilator Setting YES, Blood Gas Inspired Oxygen 30%, Sodium Level 134L, Potassium Level 4.3, Chloride Level 104, Carbon Dioxide Level 21, Anion Gap 9, Blood Urea Nitrogen 15, Creatinine 1.64H, Estimat Glomerular Filtration Rate 42, BUN/Creatinine Ratio 9, Glucose Level 299H, Calcium Level 6.9L, Phosphorus Level 3.3, Magnesium Level 1.8 Microbiology 09/28/20 Blood Culture - Preliminary, Resulted No growth 09/28/20 Urine Culture - Final, Complete NO GROWTH Assessment/Plan Assessment/Plan Assessment/Plan S/P small bowel resection, wound vac placement 1. Pt return to surgery today 2. Continue ABX 3. Continue Pain medication 4. Patient remain NPO 5. Continue bryant catheter and NG tube. 6. Continue routine CBC, CMP Anemia 1. Improved to 10.5 from 9.6 yesterday, Pt stabe. 2. Continue routine CBC 3. Consider T/S if anemia worsens OSMIN MARTIN DO 09/30/20 1135: Subjective Time Seen by a Provider: 11:21 Subjective/Events-last exam Pt seen and examined, mostly sedated on vent. Review of Systems unable to obtain, pt on vent Objective Exam General Appearance: Other (Intubated, Sedated) Respiratory: Lungs Clear, Normal Breath Sounds, Other (intubated on vent) Cardiovascular: Regular Rate, Rhythm, No Murmur Gastrointestinal: abnormal bowel sounds, distended, tenderness (diffusely), other (Vaccumed wound with wound vac in place, draining. No redness, discharge, or leaking from wound noted.) Extremity: No Pedal Edema Skin: Normal Color, Warm/Dry Assessment/Plan Assessment/Plan Assessment/Plan S/P small bowel resection and wound vac placement -. Pt return to surgery today, for fascial closure and wound VAC placement, consent obtained, cont ABX, cont pain medication, NPO, continue bryant catheter and NG tube (hopefully d/c tomorrow). CBC, CMP Anemia - stable Hypotension - started on Levophed, will try to wean Supervisory-Addendum Brief Verification & Attestation Participated in pt care: history, MDM, physical Personally performed: exam, history, MDM Care discussed with: Medical Student Procedures: n/a Verification and Attestation of Medical Student E/M Service A medical student performed and documented this service. I then reviewed and verified all information documented by the medical student and made modifications to such information, when appropriate. I personally performed a physical exam, medical decision making and then discussed any differences between the notes and made revisions as necessary to create one note. Osmin Martin , 09/30/20 , 11:35 ALICIA BERMAN MED STUDENT Sep 30, 2020 07:53 OSMIN MARTIN DO Sep 30, 2020 11:35
--- NOTE | 2020-09-30 08:01 | Physical Therapy Progress Note ---
Therapy Progress Note Patient currently sedated and intubated. PT will continue to monitor patient status. AUBREY GRANADOS PT Sep 30, 2020 08:01
--- NOTE | 2020-09-30 08:12 | Occ Therapy Progress Note ---
Therapy Progress Note OT will continue to monitor pt. Pt. currently sedated and on ventilator. 08 ANDREEA KAYE OT Sep 30, 2020 08:12
[2020-09-30] MEDS: PANTOPRAZOLE 40 MG (PROTONIX) VIAL IV SCH (08:38)
[2020-09-30 08:43] LABS: ABG BASE EXCESS -1.9 MMOL/L (-2.5-2.5); ABG OXYGEN SATURATION 84 % (94-100); ABG PCO2 48 MMHG (35-45); ABG PO2 59 MMHG (79-93); ABG TCO2 24.8 MMOL/L (21.0-31.0)
[2020-09-30 08:45] LABS: ABG PH 7.31 (7.37-7.43)
[2020-09-30 08:46] LABS: ALLENS TEST POSITIVE; INSPIRED O2 30%; PATIENT TEMP 37.7; VENTILATOR YES
[2020-09-30] MEDS ORDERED: PANTOPRAZOLE 40 MG (PROTONIX) VIAL IVP SCH (09:00)
[2020-09-30] MEDS: ENOXAPARIN 40 MG/0.4 ML (LOVENOX) SYR SC SCH (09:06)
[2020-09-30 10:20] VITALS: BP 93/50
[2020-09-30] MEDS ORDERED: TROUGH ORDER-PHARMACY XX ONE (11:00)
[2020-09-30] MEDS ORDERED: MIDAZOLAM 5 MG/5 ML (VERSED) VIAL ONE (12:01)
[2020-09-30] MEDS ORDERED: ROCURONIUM 10 MG/ML 5 ML SYRINGE IV ONE ×2 (12:01→12:57)
[2020-09-30] MEDS ORDERED: HYDROmorphone 2 MG/ML VIAL (DILAUDID) ONE (12:35)
[2020-09-30] MEDS ORDERED: ISOFLURANE (FORANE) 15 ML/15 MIN INHALATION ONE (12:49)
--- NOTE | 2020-09-30 13:38 | Progress Note-Post Operative ---
Post-Operative Progess Note Surgeon (s)/Manufacturing Machine Operator (s) Surgeon BEBE MARTIN DO Manufacturing Machine Operator: Sharifa Pre-Operative Diagnosis Open Abd with ABthera wound VAC Post-Operative Diagnosis same Procedure & Operative Findings Date of Procedure 09/30/20 Procedure Performed/Findings Abdominal washout Delayed Primary closure of Fascia Wound VAC placement 3.5 x 27 x 3.5 cm Anesthesia Type GET Estimated Blood Loss Estimated blood loss (mL): scant Specimens/Packing Specimens Removed none BEBE MARTIN DO Sep 30, 2020 13:38
[2020-09-30 14:02] VITALS: BP 95/41
[2020-09-30] MEDS: VASOPRESSIN INJECTION 20 UNIT in NS (IVPB) 100 ML IV SCH ×2 (14:14→21:57)
--- NOTE | 2020-09-30 14:22 | Progress Note ---
Subjective Date Seen by a Provider: Sep 30, 2020 Time Seen by a Provider: 17:41 Subjective/Events-last exam Fwup wound dehiscence with fistula, S/P right colon resection for colon cancer. Patient taken to surgery last night with bowel resection for bowel obstruction and then left on ventilator. Taken back to surgery today for abdominal clean out and wound vac placed. Has severe septic shock--on 2 pressors in ICU. Focused Exam Sepsis Stage: Septic Shock Lactate Level 09/28/20 20:40: Lactic Acid Level 1.65 Time of Focused Exam: 17:49 Respiratory: Decreased Breath Sounds, Rhonci Cardiovascular: Systolic Murmur, Tachycardia Objective Exam Vital Signs Date Time Temp Pulse Resp B/P (MAP) Pulse Ox O2 Delivery O2 Flow Rate FiO2 09/30/20 14:02 107 24 95 40 09/30/20 11:46 92 93/50 09/30/20 11:30 Mechanical Ventilator 40 09/30/20 11:00 37.8 90 24 107/56 (73) 96 Mechanical Ventilator 40.00 09/30/20 10:20 92 24 96 40 09/30/20 10:18 92 131/68 09/30/20 10:10 Mechanical Ventilator 40.00 09/30/20 10:00 37.7 89 23 111/61 (78) 97 Mechanical Ventilator 40.00 09/30/20 09:00 37.7 90 39 114/56 (75) 95 Mechanical Ventilator 30.00 09/30/20 08:00 37.6 89 23 121/62 (81) 96 Mechanical Ventilator 30.00 09/30/20 08:00 96 Mechanical Ventilator 30 09/30/20 07:18 92 24 96 30 09/30/20 07:00 37.9 98 13 133/66 (88) 97 Mechanical Ventilator 30.00 09/30/20 06:50 96 09/30/20 06:00 38.2 88 17 109/59 (76) 96 Mechanical Ventilator 30.00 09/30/20 05:00 38.3 90 18 111/61 (78) 96 Mechanical Ventilator 30.00 09/30/20 04:32 92 88/51 09/30/20 04:00 94 Mechanical Ventilator 30 09/30/20 04:00 38.4 81 15 112/61 (78) 95 Mechanical Ventilator 30.00 09/30/20 03:38 98 84/42 09/30/20 03:00 38.3 93 18 104/54 (71) 93 Mechanical Ventilator 30.00 09/30/20 02:28 Mechanical Ventilator 30.00 09/30/20 02:26 87 105/51 09/30/20 02:25 87 20 98 40 09/30/20 02:04 87 70/43 09/30/20 02:02 87 70/43 09/30/20 02:00 38.5 87 17 70/43 (52) 96 Mechanical Ventilator 40.00 09/30/20 01:00 96 09/30/20 01:00 38.5 96 29 70/44 (53) 98 Mechanical Ventilator 40.00 09/30/20 00:08 36.7 09/30/20 00:05 37.3 09/30/20 00:04 34.9 09/30/20 00:00 96 19 86/48 (61) 97 Mechanical Ventilator 40.00 09/30/20 00:00 97 Mechanical Ventilator 40 09/29/20 23:23 100 20 98 40 09/29/20 23:00 99 17 91/56 (68) 98 Mechanical Ventilator 40.00 09/29/20 22:30 99 18 98/60 (73) 97 Mechanical Ventilator 40.00 09/29/20 22:29 Mechanical Ventilator 40.00 09/29/20 22:22 97 23 98 45 09/29/20 22:00 98 19 95/61 (72) 97 Mechanical Ventilator 45.00 09/29/20 21:42 35.6 09/29/20 21:42 Mechanical Ventilator 45.00 09/29/20 21:00 95 25 114/65 (81) 98 Mechanical Ventilator 50.00 09/29/20 20:00 98 Mechanical Ventilator 50 09/29/20 20:00 91 18 124/67 (86) 98 Mechanical Ventilator 50.00 09/29/20 19:00 91 22 136/69 (91) 97 Mechanical Ventilator 50.00 09/29/20 19:00 91 09/29/20 18:15 36.1 22 98/35 (56) 99 Mechanical Ventilator 09/29/20 18:15 Mechanical Ventilator 09/29/20 18:09 92 130/65 09/29/20 18:00 23 136/71 (92) 100 Mechanical Ventilator 09/29/20 18:00 93 23 136/71 (92) 95 Mechanical Ventilator 50.00 09/29/20 18:00 Mechanical Ventilator 09/29/20 17:45 36.5 12 137/64 (88) 100 Mechanical Ventilator 09/29/20 17:45 93 23 100 100 09/29/20 17:45 Mechanical Ventilator I & O 09/30/20 07:00 Intake Total 4385 ml Output Total 2310 ml Balance 2075 ml Capillary Refill : Less Than 3 SecondsLess Than 3 Seconds General Appearance: Other (sedated on vent) Respiratory: Rhonci Cardiovascular: Regular Rate, Rhythm, Systolic Murmur Gastrointestinal: abnormal bowel sounds, distended, other (dressing/wound vac in place) Extremity: Pedal Edema Neurologic/Psychiatric: Other (sedated on ventilator) Skin: Warm/Dry Results Lab Laboratory Tests 09/29/20 15:22: Coronavirus (COVID-19)(PCR) Negative 09/29/20 18:00: Glucometer 147H 09/29/20 19:29: Magnesium Level 1.8, Triglycerides Level 107 09/30/20 00:01: Glucometer 253H 09/30/20 03:40: White Blood Count 17.0H, Red Blood Count 4.20L, Hemoglobin 10.5L, Hematocrit 35L , Mean Corpuscular Volume 82, Mean Corpuscular Hemoglobin 25, Mean Corpuscular Hemoglobin Concent 30L, Red Cell Distribution Width 16.4H, Platelet Count 425H, Mean Platelet Volume 9.4, Immature Granulocyte % (Auto) 2, Neutrophils (%) (Auto) 88H, Lymphocytes (%) (Auto) 4L, Monocytes (%) (Auto) 5, Eosinophils (%) (Auto) 0, Basophils (%) (Auto) 0, Neutrophils # (Auto) 15.0H, Lymphocytes # (Auto) 0.7L, Monocytes # (Auto) 0.9, Eosinophils # (Auto) 0.0, Basophils # (Auto) 0.1, Immature Granulocyte # (Auto) 0.3H, Blood Gas Puncture Site RIGHT RADIAL, Blood Gas Patient Temperature 38.4, Arterial Blood pH 7.30*L, Arterial Blood Partial Pressure CO2 48H, Arterial Blood Partial Pressure O2 84, Arterial Blood HCO3 23, Arterial Blood Total CO2 23.9, Arterial Blood Oxygen Saturation 94, Arterial Blood Base Excess -2.6L, Peter Test YES-POS, Blood Gas Ventilator Setting YES, Blood Gas Inspired Oxygen 30%, Sodium Level 134L, Potassium Level 4.3, Chloride Level 104, Carbon Dioxide Level 21, Anion Gap 9, Blood Urea Nitrogen 15, Creatinine 1.64H, Estimat Glomerular Filtration Rate 42, BUN/Creatinine Ratio 9, Glucose Level 299H, Calcium Level 6.9L, Phosphorus Level 3.3, Magnesium Level 1.8 09/30/20 08:30: Blood Gas Puncture Site RIGHT RADIAL, Blood Gas Patient Temperature 37.7, Arterial Blood pH 7.31*L, Arterial Blood Partial Pressure CO2 48H, Arterial Blood Partial Pressure O2 59L, Arterial Blood HCO3 23, Arterial Blood Total CO2 24.8, Arterial Blood Oxygen Saturation 84L, Arterial Blood Base Excess -1.9, Pteer Test POSITIVE, Blood Gas Ventilator Setting YES, Blood Gas Inspired Oxygen 30% 09/30/20 11:10: Vancomycin Level Trough 21.8H 09/30/20 11:13: Glucometer 239H Microbiology 09/29/20 MRSA Screen - Final, Complete MRSA not isolated 09/28/20 Blood Culture - Preliminary, Resulted No growth 09/28/20 Urine Culture - Final, Complete NO GROWTH Assessment/Plan Assessment/Plan Assess & Plan/Chief Complaint 1. Severe Septic Shock due to Wound Dehiscence with fistula from recent right sided colectomy for colon cancer--S/P Exp Lap with bowel obstruction and bowel resection x2--back to surgery today for abdominal cleanout and wound vac placement--back to ICU on Ventilator with wound vac in place, IV abx, on 2 pressors, gut rest with TPN, pulmonology consulted, prognosis guarded 2. Hypertension--currently hypotensive due to shock 3. DMII--on accuchecks with SSI per ICU protocol 4. COPD--on duoneb routinely Clinical Quality Measures Admission Status Admission Dx 1. Abdominal Wound Dehiscence with Fistula/Incisional Hernia with Incarcerated Bowel--S/P recent right hemicolectomy for right sided colon cancer--Gut rest, IV antibiotics, surgical management 2. Hypertension--monitor and use lopressor prn 3. DMII--accuchecks with SSI 4. COPD--SVNs/inhalers prn YENI RUVALCABA DO Sep 30, 2020 14:22
--- NOTE | 2020-09-30 15:09 | Occ Therapy Progress Note ---
Therapy Progress Note Will continue to follow. Will need new orders for Occupational therapy when pt. is medically stable. [id number] ANDREEA KAYE OT Sep 30, 2020 15:09
--- NOTE | 2020-09-30 15:23 | Pulmonary Progress Note ---
Standard Progress Note Progress Notes Date Seen by Provider: Sep 30, 2020 Time Seen by Provider: 15:18 I called and discussed plan of care with Dr. Ramos. Pt is currently requiring Vasopressin and Levophed. I recommend waiting until morning reevaluating and if appropriate at that time proceeding with ventilator weaning. Currently pt is requiring 40% Fi0o2 on Ventilator. Assessment & Plan Acute respiratory failure s/p surgery r/o PNA -Repeat PCT -Plan is back to surgery today -Vent 500/12/5-- Fi02 30% -ABG reviewed -Change to 450/24/5 repeat ABG 1hr after change -Will Wean vent in AM if pt is stable. -EICU doctor will manage patient tonight Intra abdominal severe septic shock -Continue Zosyn -MRSA swab is negative -Vanco has been D/C'd per Dr. Ramos -Boogie cultures pending -Levophed add Vasopressin Wound Dehiscence with fistula from recent right sided colectomy for colon cancer--S/P Exp Lap with bowel obstruction and bowel resection x2--back to surgery today for abdominal cleanout and wound vac placement--back to ICU on Chan tilator with wound vac in place Hx of hypothyroid - Synthroid IV Acute renal failure with oligura -Aggressive IVF -Pt has had 2liters through the night -Bolus another liter of LR Malnutrition -TPN per surgery Abdominal Wound Dehiscence with Fistula/Incisional Hernia with Incarcerated Bowel 09/29 S/P recent right hemicolectomy for right sided colon cancer 09/20 COPD hx -Start SVNS DMII -Monitor -SSI Focused Exam Lactate Level 09/28/20 20:40: Lactic Acid Level 1.65 RACHEL HANKINS DO Sep 30, 2020 15:23
[2020-09-30 15:56] LABS: BASOPHILS # (AUTO) 0.1 10^3/uL (0.0-0.1); BASOPHILS % (AUTO) 0 % (0-10); EOSINOPHILS % (AUTO) 0 % (0-10); HEMATOCRIT 32 % (40-54); HEMOGLOBIN 9.8 g/dL (13.3-17.7); LYMPHOCYTES # (AUTO) 0.7 10^3/uL (1.0-4.0); LYMPHOCYTES % (AUTO) 4 % (12-44); MEAN CORPUSCULAR HEMOGLOBIN 25 pg (25-34); MEAN CORPUSCULAR HGB CONC 31 g/dL (32-36); MEAN CORPUSCULAR VOLUME 82 fL (80-99); MEAN PLATELET VOLUME 9.4 fL (9.0-12.2); MONOCYTES # (AUTO) 1.3 10^3/uL (0.0-1.0); MONOCYTES % (AUTO) 7 % (0-12); NEUTROPHILS # (AUTO) 15.2 10^3/uL (1.8-7.8); NEUTROPHILS % (AUTO) 86 % (42-75); PLATELET COUNT 338 10^3/uL (130-400); WHITE BLOOD COUNT 17.6 10^3/uL (4.3-11.0)
[2020-09-30 16:07] LABS: ALBUMIN 1.9 GM/DL (3.2-4.5); POTASSIUM 4.3 MMOL/L (3.6-5.0)
[2020-09-30] MEDS: 1/2 NS IV SOLUTION 1,000 ML IV SCH (16:08)
[2020-09-30 16:10] LABS: TOTAL PROTEIN 4.4 GM/DL (6.4-8.2)
[2020-09-30 16:11] LABS: BILIRUBIN,TOTAL 0.3 MG/DL (0.1-1.0)
[2020-09-30 16:13] LABS: CREATININE SERUM 1.54 MG/DL (0.60-1.30); PHOSPHORUS 3.5 MG/DL (2.3-4.7)
[2020-09-30 16:17] LABS: MAGNESIUM 1.9 MG/DL (1.6-2.4)
[2020-09-30] MEDS ORDERED: SODIUM ACETATE IV SCH ×10 (17:00)
[2020-09-30] MEDS ORDERED: SODIUM CHLORIDE IV SCH ×10 (17:00)
[2020-09-30] MEDS ORDERED: [UNRECOGNIZED DRUG - OTHER] IV SCH ×10 (17:00)
[2020-09-30 17:58] VITALS: BP 84/76
--- NOTE | 2020-09-30 20:33 | OPERATIVE REPORT ---
DATE OF SERVICE: 09/30/2020 PREOPERATIVE DIAGNOSIS: Delayed primary wound closure, open abdomen. POSTOPERATIVE DIAGNOSIS: Delayed primary wound closure, open abdomen. PROCEDURES: 1. Abdominal washout. 2. Primary fascial closure. 3. Wound VAC placement measuring 3.5 cm x 27 cm x 3.5 cm. SURGEON: Osmin Ramos DO CARDIAC EXERCISE SPECIALIST: Troy Skaggs DO ANESTHESIA: General endotracheal tube. SPECIMENS: None. BLOOD LOSS: Scant. FLUIDS: Per anesthesia. POSTOPERATIVE CONDITION: Stable. INDICATION FOR PROCEDURE: The patient is a 64-year-old male who unfortunately has recently been diagnosed with metastatic colon cancer and he actually had been sent home after resection and came back with a fascial dehiscence and enterotomy most likely secondary to ischemia. He had a colon resection and then had a ABThera VAC placed, so we could re-look in the abdomen. FINDINGS: The patient had some dilated small bowel, but the bowel was very pink. There were no signs of any succuss or ischemia in the abdomen at all. PROCEDURE NOTE: After informed consent was obtained, the patient was brought down from the ICU. He was sterilely prepped and draped in normal fashion. The wound VAC ABThera was taken out, then looked in all quadrants as well as at the bowel. The bowel looked good, it good pink, mildly dilated, but there was no succuss, no ischemic bowel. Copiously irrigated with 4 liters of warm normal saline, suctioned this out. Again, it all looked clear and at this point elected to again close the abdomen, closed the fascia with #1 double stranded suture, one from the inferior portion, one from the superior portion running together and meeting in the middle and then tying. We did this firmly, but not too tightly and not to loosely, then placed a wound VAC sponge after copiously irrigating the midline incision, placed occlusive dressing to protect the skin and then placed a black sponge into the incision and then covered this with another occlusive dressing and then attached to the VAC device. The patient tolerated the procedure. He was transferred back to ICU in stable condition. Sponge, instrument, and needle count correct at the end of the case. Job ID: [id number] DocumentID: [id number] Dictated Date: 09/30/2020 16:25:20 Financial Analyst Intern Date: 09/30/2020 20:32:25 Dictated By: OSMIN RAMOS DO
[2020-09-30 21:41] VITALS: BP 110/46
[2020-10-01] MEDS: inSUlin ASPART (NovoLOG) 1 UNIT/0.01 ML (CHARGE PER UNIT) SC SCH ×4 (00:17→18:38)
[2020-10-01 01:58] VITALS: BP 130/50
[2020-10-01] MEDS: RT-ALBUTEROL/IPRATROPIUM 3 ML (DUONEB) VIAL INH SCH ×6 (01:58→21:17)
[2020-10-01] MEDS: PROPOFOL DRIP (ICU) 100 ML IV SCH (02:40)
[2020-10-01] MEDS: PIPERACILLIN/TAZO 4.5 GM/NS 100 ML IV SCH ×6 (02:42→19:29)
[2020-10-01] MEDS: fentaNYL DRIP PRE-MIX 250 ML IV SCH (03:10)
[2020-10-01 03:43] LABS: ABG BASE EXCESS -1.8 MMOL/L (-2.5-2.5); ABG OXYGEN SATURATION 98 % (94-100); ABG PCO2 45 MMHG (35-45); ABG PO2 106 MMHG (79-93); ABG TCO2 24.3 MMOL/L (21.0-31.0); BASOPHILS % (AUTO) 0 % (0-10); EOSINOPHILS # (AUTO) 0.1 10^3/uL (0.0-0.3); EOSINOPHILS % (AUTO) 1 % (0-10); HEMATOCRIT 28 % (40-54); HEMOGLOBIN 8.6 g/dL (13.3-17.7); LYMPHOCYTES # (AUTO) 0.8 10^3/uL (1.0-4.0); LYMPHOCYTES % (AUTO) 5 % (12-44); MEAN CORPUSCULAR HEMOGLOBIN 25 pg (25-34); MEAN CORPUSCULAR HGB CONC 31 g/dL (32-36); MEAN CORPUSCULAR VOLUME 82 fL (80-99); MEAN PLATELET VOLUME 9.5 fL (9.0-12.2); MONOCYTES # (AUTO) 1.3 10^3/uL (0.0-1.0); MONOCYTES % (AUTO) 8 % (0-12); NEUTROPHILS # (AUTO) 13.4 10^3/uL (1.8-7.8); NEUTROPHILS % (AUTO) 84 % (42-75); PLATELET COUNT 314 10^3/uL (130-400); WHITE BLOOD COUNT 15.9 10^3/uL (4.3-11.0)
[2020-10-01 03:44] LABS: ABG PH 7.35 (7.37-7.43); ALLENS TEST YES-POS; INSPIRED O2 30%; PATIENT TEMP 37.9; VENTILATOR YES
[2020-10-01] MEDS ORDERED: NS IV 500 ML 500 ML ONE (03:54)
--- NOTE | 2020-10-01 03:54 | Pulmonary Progress Note ---
Subjective Time Seen by a Provider: 03:46 Subjective/Events-last exam Sedated on vent. Sepsis Event Evaluation Height, Weight, BMI Height: 5'8.00" Weight: 238lbs. 5.0oz. 107.494799lq; 33.52 BMI Method:Stated Focused Exam Lactate Level 09/28/20 20:40: Lactic Acid Level 1.65 Time of Focused Exam: 17:49 Exam Exam Vital Signs Date Time Temp Pulse Resp B/P (MAP) Pulse Ox O2 Delivery O2 Flow Rate FiO2 10/01/20 02:40 93 94/72 10/01/20 02:12 95 116/60 10/01/20 01:58 92 24 94 30 10/01/20 00:17 93 138/50 10/01/20 00:00 37.8 93 23 136/50 (78) 95 Mechanical Ventilator 30.00 09/30/20 23:00 37.8 97 24 133/49 (77) 95 Mechanical Ventilator 30.00 09/30/20 22:00 37.9 100 32 112/44 (66) 94 Mechanical Ventilator 30.00 09/30/20 21:57 98 112/43 09/30/20 21:52 Mechanical Ventilator 30.00 09/30/20 21:51 98 105/43 09/30/20 21:41 95 24 97 30 09/30/20 21:35 98 135/60 09/30/20 21:00 37.9 99 23 127/49 (75) 97 Mechanical Ventilator 40.00 09/30/20 20:00 37.9 101 24 87/79 (82) 97 Mechanical Ventilator 40.00 09/30/20 19:41 97 81/42 09/30/20 19:00 37.9 98 23 108/48 (68) 96 Mechanical Ventilator 40.00 09/30/20 19:00 100 09/30/20 18:16 100 105/45 09/30/20 18:00 37.9 100 23 84/77 (79) 96 Mechanical Ventilator 40.00 09/30/20 17:58 100 24 97 40 09/30/20 17:00 37.9 96 24 95/47 (63) 94 Mechanical Ventilator 40.00 09/30/20 16:25 Mechanical Ventilator 40 09/30/20 16:00 37.9 97 24 105/46 (65) 95 Mechanical Ventilator 40.00 09/30/20 15:00 37.8 96 15 117/47 (70) 96 Mechanical Ventilator 40.00 09/30/20 14:14 107 95/41 09/30/20 14:02 107 24 95 40 09/30/20 14:00 Automatic Cuff 09/30/20 14:00 37.9 108 23 100/44 (62) 95 Mechanical Ventilator 40.00 09/30/20 11:46 92 93/50 09/30/20 11:30 Mechanical Ventilator 40 09/30/20 11:00 37.8 90 24 107/56 (73) 96 Mechanical Ventilator 40.00 09/30/20 10:20 92 24 96 40 09/30/20 10:18 92 131/68 09/30/20 10:10 Mechanical Ventilator 40.00 09/30/20 10:00 37.7 89 23 111/61 (78) 97 Mechanical Ventilator 40.00 09/30/20 09:00 37.7 90 39 114/56 (75) 95 Mechanical Ventilator 30.00 09/30/20 08:00 37.6 89 23 121/62 (81) 96 Mechanical Ventilator 30.00 09/30/20 08:00 96 Mechanical Ventilator 30 09/30/20 07:18 92 24 96 30 09/30/20 07:00 37.9 98 13 133/66 (88) 97 Mechanical Ventilator 30.00 09/30/20 06:50 96 09/30/20 06:00 38.2 88 17 109/59 (76) 96 Mechanical Ventilator 30.00 09/30/20 05:00 38.3 90 18 111/61 (78) 96 Mechanical Ventilator 30.00 09/30/20 04:32 92 88/51 09/30/20 04:00 94 Mechanical Ventilator 30 09/30/20 04:00 38.4 81 15 112/61 (78) 95 Mechanical Ventilator 30.00 I & O 10/01/20 07:00 Intake Total 7941 ml Output Total 1625 ml Balance 6316 ml Height & Weight Height: 5'8.00" Weight: 238lbs. 5.0oz. 107.500760el; 33.52 BMI Method:Stated General Appearance: Other (sedated on vent) HEENT: Moist Mucous Membranes; No Scleral Icterus (L), No Scleral Icterus (R) Neck: Normal Inspection, Non Tender, Supple Respiratory: Rhonci Cardiovascular: Regular Rate, Rhythm, Systolic Murmur Capillary Refill: Less Than 3 Seconds Peripheral Pulses: 2+ Radial Pulses (R), 2+ Radial Pulses (L) Gastrointestinal: abnormal bowel sounds, distended, other (dressing/wound vac in place) Extremity: Pedal Edema Neurologic/Psychiatric: Other (sedated on ventilator) Skin: Warm/Dry Lymphatic: No Adenopathy (neck, axilla or groin) Results Lab Laboratory Tests 09/29/20 05:20 09/30/20 03:40 09/30/20 15:45 10/01/20 03:30 Assessment/Plan Assessment/Plan Acute respiratory failure s/p surgery -Repeat PCT -Plan is back to surgery today -Vent 500/12/5-- Fi02 30% -Hold sedation and will attempt to wean ventilator -ABG reviewed -Change to 450/24/5 repeat ABG 1hr after change -Will Wean vent in AM if pt is stable. -EICU doctor will manage patient tonight Severe septic shock -Titrate Levophed to D/C -Continue Vasopressin for now -IVF PNA- present on admission -Continue Zosyn -MRSA swab is negative -Boogie cultures negative thus far and sputum is pending -Improving Leukocytosis s/p multiple surgeries secondary to complications. -Check Bladder pressures -Boogie cultures pending -Levophed add Vasopressin Hyperglycemia -TPN is being D/C'd -Continue SSI Wound Dehiscence with fistula from recent right sided colectomy for colon cancer--S/P Exp Lap with bowel obstruction and bowel resection x2--followed by repeat abdominal surgical cleanout and wound vac placement S/P recent right hemicolectomy for right sided colon cancer 09/20 Hx of hypothyroid - Synthroid IV Acute renal failure with improved UO -Aggressive IVF Malnutrition -TPN per surgery COPD hx - SVNS DMII -Monitor -SSI RACHEL HANKINS DO Oct 01, 2020 03:54
[2020-10-01 03:56] LABS: POTASSIUM 4.1 MMOL/L (3.6-5.0)
[2020-10-01 03:57] LABS: CALCIUM 7.1 MG/DL (8.5-10.1)
[2020-10-01 04:01] LABS: CREATININE SERUM 1.38 MG/DL (0.60-1.30); PHOSPHORUS 2.6 MG/DL (2.3-4.7)
[2020-10-01 04:04] LABS: MAGNESIUM 1.8 MG/DL (1.6-2.4)
[2020-10-01] MEDS ORDERED: morphine INJ 4 MG/ML 1 ML (VIAL/SYRINGE) ONE (04:18)
[2020-10-01] MEDS ORDERED: morphine INJ 4 MG/ML 1 ML (VIAL/SYRINGE) IVP PRN (04:30)
[2020-10-01] MEDS: NOREPINEPHRINE 4 MG/250 ML 250 ML IV SCH ×4 (04:39→23:20)
[2020-10-01 04:42] LABS: ABG BASE EXCESS -1.8 MMOL/L (-2.5-2.5); ABG OXYGEN SATURATION 98 % (94-100); ABG PCO2 45 MMHG (35-45); ABG PO2 104 MMHG (79-93); ABG TCO2 24.6 MMOL/L (21.0-31.0)
[2020-10-01 04:43] LABS: ABG PH 7.35 (7.37-7.43); ALLENS TEST YES-POS; INSPIRED O2 30%; PATIENT TEMP 36.9; VENTILATOR YES
[2020-10-01] MEDS: LACTATED RINGERS 1,000 ML IV SCH ×3 (05:39→19:29)
--- NOTE | 2020-10-01 07:27 | Progress Note - Surgery ---
ALICIA BERMAN MED STUDENT 10/01/20 0727: Subjective Date Seen by a Provider: Oct 01, 2020 Time Seen by a Provider: 07:15 Subjective/Events-last exam Patient is awake, alert, and laying in bed this morning. States his pain is high at around 8-9, nurse reports last dose of pain medication was at about 0530 and he received 2mg of morphine. No flatus or BM. No ambulation since surgery. Has remained NPO. Denies SOB, Chest pain, or pain in legs. NG tube ~50ml, Wound Vac less than 100ml. About 125ml in bryant catheter. He is using IS. Nurse states he was extubated last night and had an abdominal pressure of 16-20. He has no questions at this time. Wound is still vacuumed shut. Review of Systems General: No Chills HEENT: No Head Aches, No Visual Changes Pulmonary: No Dyspnea, No Cough Cardiovascular: No: Chest Pain, Edema Gastrointestinal: Abdominal Pain; No: Nausea, Vomiting Genitourinary: No Dysuria Musculoskeletal: No: leg pain Focused Exam Lactate Level 09/28/20 20:40: Lactic Acid Level 1.65 Time of Focused Exam: 17:49 Objective Exam Vital Signs Date Time Temp Pulse Resp B/P (MAP) Pulse Ox O2 Delivery O2 Flow Rate FiO2 10/01/20 06:44 93 Nasal Cannula 3.00 10/01/20 06:15 37.7 108 13 113/50 (71) 92 Nasal Cannula 3.00 10/01/20 06:00 37.7 109 16 92 Nasal Cannula 3.00 10/01/20 05:01 92 Nasal Cannula 3.00 10/01/20 05:00 37.7 117 17 142/64 (90) 91 Nasal Cannula 3.00 10/01/20 04:55 Nasal Cannula 3.00 10/01/20 04:00 37.9 92 26 117/58 (77) 95 Mechanical Ventilator 30.00 10/01/20 03:49 95 Mechanical Ventilator 30 10/01/20 03:00 37.9 95 24 133/46 (75) 94 Mechanical Ventilator 30.00 10/01/20 02:40 93 94/72 10/01/20 02:12 95 116/60 10/01/20 02:00 37.9 93 19 134/49 (77) 93 Mechanical Ventilator 30.00 10/01/20 01:58 92 24 94 30 10/01/20 01:00 92 10/01/20 01:00 37.9 92 125/46 (72) 95 Mechanical Ventilator 30.00 10/01/20 00:17 93 138/50 10/01/20 00:00 95 Mechanical Ventilator 30 10/01/20 00:00 37.8 93 23 136/50 (78) 95 Mechanical Ventilator 30.00 09/30/20 23:00 37.8 97 24 133/49 (77) 95 Mechanical Ventilator 30.00 09/30/20 22:00 37.9 100 32 112/44 (66) 94 Mechanical Ventilator 30.00 09/30/20 21:57 98 112/43 09/30/20 21:52 Mechanical Ventilator 30.00 09/30/20 21:51 98 105/43 09/30/20 21:41 95 24 97 30 09/30/20 21:35 98 135/60 09/30/20 21:00 37.9 99 23 127/49 (75) 97 Mechanical Ventilator 40.00 09/30/20 20:00 37.9 101 24 87/79 (82) 97 Mechanical Ventilator 40.00 09/30/20 20:00 98 Mechanical Ventilator 40 09/30/20 19:41 97 81/42 09/30/20 19:00 37.9 98 23 108/48 (68) 96 Mechanical Ventilator 40.00 09/30/20 19:00 100 09/30/20 18:16 100 105/45 09/30/20 18:00 37.9 100 23 84/77 (79) 96 Mechanical Ventilator 40.00 09/30/20 17:58 100 24 97 40 09/30/20 17:00 37.9 96 24 95/47 (63) 94 Mechanical Ventilator 40.00 09/30/20 16:25 Mechanical Ventilator 40 09/30/20 16:00 37.9 97 24 105/46 (65) 95 Mechanical Ventilator 40.00 09/30/20 15:00 37.8 96 15 117/47 (70) 96 Mechanical Ventilator 40.00 09/30/20 14:14 107 95/41 09/30/20 14:02 107 24 95 40 09/30/20 14:00 Automatic Cuff 09/30/20 14:00 37.9 108 23 100/44 (62) 95 Mechanical Ventilator 40.00 09/30/20 11:46 92 93/50 09/30/20 11:30 Mechanical Ventilator 40 09/30/20 11:00 37.8 90 24 107/56 (73) 96 Mechanical Ventilator 40.00 09/30/20 10:20 92 24 96 40 09/30/20 10:18 92 131/68 09/30/20 10:10 Mechanical Ventilator 40.00 09/30/20 10:00 37.7 89 23 111/61 (78) 97 Mechanical Ventilator 40.00 09/30/20 09:00 37.7 90 39 114/56 (75) 95 Mechanical Ventilator 30.00 09/30/20 08:00 37.6 89 23 121/62 (81) 96 Mechanical Ventilator 30.00 09/30/20 08:00 96 Mechanical Ventilator 30 I & O 10/01/20 07:00 Intake Total 9061 ml Output Total 1975 ml Balance 7086 ml Capillary Refill : Less Than 3 SecondsLess Than 3 Seconds General Appearance: No Apparent Distress Respiratory: Chest Non Tender, Lungs Clear, Normal Breath Sounds, No Accessory Muscle Use, No Respiratory Distress Cardiovascular: Regular Rate, Rhythm, No Edema, No Murmur, Normal Peripheral Pulses Peripheral Pulses: 2+ Radial Pulses (R), 2+ Radial Pulses (L) Gastrointestinal: non tender (Pt denies pain on palpation of abdomen), distended (slightly more distended and hard than yesterday), other (d ressing/wound vac in place, no leaking) Extremity: No Pedal Edema Neurologic/Psychiatric: Alert, Oriented x3 Skin: Normal Color, Warm/Dry Results Lab Laboratory Tests 09/30/20 08:30: Blood Gas Puncture Site RIGHT RADIAL, Blood Gas Patient Temperature 37.7, Arterial Blood pH 7.31*L, Arterial Blood Partial Pressure CO2 48H, Arterial Blood Partial Pressure O2 59L, Arterial Blood HCO3 23, Arterial Blood Total CO2 24.8, Arterial Blood Oxygen Saturation 84L, Arterial Blood Base Excess -1.9, Peter Test POSITIVE, Blood Gas Ventilator Setting YES, Blood Gas Inspired Oxygen 30% 09/30/20 11:10: Vancomycin Level Trough 21.8H 09/30/20 11:13: Glucometer 239H 09/30/20 15:45: White Blood Count 17.6H, Red Blood Count 3.92L, Hemoglobin 9.8L, Hematocrit 32L, Mean Corpuscular Volume 82, Mean Corpuscular Hemoglobin 25, Mean Corpuscular Hemoglobin Concent 31L, Red Cell Distribution Width 16.2H, Platelet Count 338, Mean Platelet Volume 9.4, Immature Granulocyte % (Auto) 2, Neutrophils (%) (Auto) 86H, Lymphocytes (%) (Auto) 4L, Monocytes (%) (Auto) 7, Eosinophils (%) (Auto) 0, Basophils (%) (Auto) 0, Neutrophils # (Auto) 15.2H, Lymphocytes # (Auto) 0.7L, Monocytes # (Auto) 1.3H, Eosinophils # (Auto) 0.0, Basophils # (Auto) 0.1, Immature Granulocyte # (Auto) 0.4H, Sodium Level 133L, Potassium Level 4.3, Chloride Level 105, Carbon Dioxide Level 20L, Anion Gap 8, Blood Urea Nitrogen 18, Creatinine 1.54H, Estimat Glomerular Filtration Rate 45, BUN/Creatinine Ratio 12, Glucose Level 287H, Calcium Level 7.0L, Corrected Calcium 8.7, Phosphorus Level 3.5, Magnesium Level 1.9, Total Bilirubin 0.3, Aspartate Amino Transf (AST/SGOT) 13, Alanine Aminotransferase (ALT/SGPT) 9, Alkaline Phosphatase 32L, Total Protein 4.4L, Albumin 1.9L, Procalcitonin 8.28H 09/30/20 17:14: Glucometer 237H 10/01/20 00:09: Glucometer 236H 10/01/20 03:30: White Blood Count 15.9H, Red Blood Count 3.40L, Hemoglobin 8.6L, Hematocrit 28L, Mean Corpuscular Volume 82, Mean Corpuscular Hemoglobin 25, Mean Corpuscular Hemoglobin Concent 31L, Red Cell Distribution Width 15.9H, Platelet Count 314, Mean Platelet Volume 9.5, Immature Granulocyte % (Auto) 2, Neutrophils (%) (Auto) 84H, Lymphocytes (%) (Auto) 5L, Monocytes (%) (Auto) 8, Eosinophils (%) (Auto) 1, Basophils (%) (Auto) 0, Neutrophils # (Auto) 13.4H, Lymphocytes # (Auto) 0.8L, Monocytes # (Auto) 1.3H, Eosinophils # (Auto) 0.1, Basophils # (Au to) 0.0, Immature Granulocyte # (Auto) 0.3H, Blood Gas Puncture Site RIGHT RADIAL, Blood Gas Patient Temperature 37.9, Arterial Blood pH 7.35L, Arterial Blood Partial Pressure CO2 45, Arterial Blood Partial Pressure O2 106H, Arterial Blood HCO3 23, Arterial Blood Total CO2 24.3, Arterial Blood Oxygen Saturation 98, Arterial Blood Base Excess -1.8, Peter Test YES-POS, Blood Gas Ventilator Setting YES, Blood Gas Inspired Oxygen 30%, Sodium Level 133L, Potassium Level 4.1, Chloride Level 105, Carbon Dioxide Level 20L, Anion Gap 8, Blood Urea Nitrogen 18, Creatinine 1.38H, Estimat Glomerular Filtration Rate 52, BUN/Creatinine Ratio 13, Glucose Level 246H, Calcium Level 7.1L, Phosphorus Level 2.6, Magnesium Level 1.8 10/01/20 04:33: Glucometer 216H 10/01/20 04:35: Blood Gas Puncture Site RIGHT RADIAL, Blood Gas Patient Temperature 36.9, Arterial Blood pH 7.35L, Arterial Blood Partial Pressure CO2 45, Arterial Blood Partial Pressure O2 104H, Arterial Blood HCO3 23, Arterial Blood Total CO2 24.6, Arterial Blood Oxygen Saturation 98, Arterial Blood Base Excess -1.8, Peter Test YES-POS, Blood Gas Ventilator Setting YES, Blood Gas Inspired Oxygen 30% Microbiology 09/29/20 MRSA Screen - Final, Complete MRSA not isolated 09/28/20 Blood Culture - Preliminary, Resulted No growth 09/28/20 Urine Culture - Final, Complete NO GROWTH Assessment/Plan Assessment/Plan Assessment/Plan 1. S/P Abdominal washout, Wound VAC placement, Exploratory laparotomy with small bowel resection x2. -Continue Pt on current pain medication -Continue ABX -Remain NPO, continue NG tube -Continue IV fluids -Continue routine CBC, CMP -Continue IS -Have pt ambulate with PT 2. Anemia -HGB 8.6 this morning from 9.8 -Continue routine CBC -Will likely start to improve -Anemia likely to continue to improve -Consider T/S or transfusion if HGB drops below 7 and is symptomatic 3. Leukocytosis -WBC 15.9 from 17.6 yesterday -Expected elevation due to leakage of intestinal contents and multiple operations -Continue ABX and monitor w/ CBC OSMIN MARTIN DO 10/01/20 1245: Subjective Time Seen by a Provider: 12:22 Subjective/Events-last exam Pt seen and examined, he is extubated. States pain is ok unless he moves. Review of Systems General: No Chills HEENT: No Head Aches, No Visual Changes Pulmonary: No Dyspnea, No Cough Cardiovascular: No: Chest Pain Gastrointestinal: Abdominal Pain; No: Nausea, Vomiting Genitourinary: No Dysuria Objective Exam General Appearance: No Apparent Distress Respiratory: Lungs Clear, Normal Breath Sounds, No Accessory Muscle Use, No Respiratory Distress Cardiovascular: Regular Rate, Rhythm, No Murmur Gastrointestinal: distended (slightly more distended and hard than yesterday), other (dressing/wound vac in place, no leaking) Extremity: No Pedal Edema, Other (pt has edema in his hands) Assessment/Plan Assessment/Plan Assessment/Plan 1. S/P Abdominal washout, Wound VAC placement, Exploratory laparotomy with small bowel resection x2. -pain medication, continue ABX, continue NG tube, ok to have ice chips, IV fluids, Encourage IS, have pt sit up and maybe up to chair, will consult PT 2. Anemia - stable 3. Leukocytosis -improving, most likely secondary to surgery continue bryant for strict monitoring of output. Supervisory-Addendum Brief Verification & Attestation Participated in pt care: history, MDM, physical Personally performed: exam, history, MDM Care discussed with: Medical Student Procedures: n/a Verification and Attestation of Medical Student E/M Service A medical student performed and documented this service. I then reviewed and verified all information documented by the medical student and made modifications to such information, when appropriate. I personally performed a physical exam, medical decision making and then discussed any differences between the notes and made revisions as necessary to create one note. Osmin Martin , 10/01/20 , 12:45 ALICIA BERMAN MED STUDENT Oct 01, 2020 07:27 OSMIN MARTIN DO Oct 01, 2020 12:45
[2020-10-01] MEDS: PANTOPRAZOLE 40 MG (PROTONIX) VIAL IV SCH (07:52)
[2020-10-01] MEDS: morphine INJ 4 MG/ML 1 ML (VIAL/SYRINGE) IVP PRN ×7 (07:53→23:20)
--- NOTE | 2020-10-01 08:35 | Diagnostic Imaging Report ---
INDICATION: Small bowel obstruction. Time of exam 1:15 a.m. Correlation is made with prior chest from 09/29/2020. Patient is intubated. ET tube has tip in good position above the sheldon. There are changes of median sternotomy and CABG. Left upper extremity PICC line appears at the tip of the SVC right atrial junction. There appear to be some infiltrates or atelectasis in both bases. No significant effusion is seen. Mid and upper lung marques are clear. There is no pneumothorax. There are postoperative changes to bilateral shoulders. IMPRESSION: Continued mild bibasilar infiltrate or atelectasis, similar to 2 days earlier. Dictated by: Dictated on workstation # [id number]
--- NOTE | 2020-10-01 10:28 | Consultation-Cardiology ---
HPI-Cardiology Cardiology Consultation: Date of Consultation 10/01/20 Time Seen by a Provider: 10:50 Date of Admission 09-28-20 Attending Physician Magdy Dailey MD Admitting Physician Petra Ayala DO Consulting Physician Fabio Ravi MD Primary Steam Shovel Oiler: Dr. Golden HPI: Chief Complaint: Sinus tachycardia Mr. Hightower is a 64 yr old male who I have seen in ICU 12. We have been consulted for cardiac management by Dr. Ayala. He is currently in bed. He has a wound vac in place to his abdomen. He is drowsy. He does not report any c/o CP. His spouse is at the bedside. He denies any SOB. He denies any abd pain at this time. Review of Systems-Cardiology Review of Systems Constitutional: tiredness Eyes: No vision change Ears/Nose/Throat: No recent hearing loss Respiratory: As described under HPI Cardiovascular: As described under HPI Gastrointestinal: As described under HPI Skin: other (wound vac in place to abdomen); No rash on exposed areas, No ulcerations on exposed areas Psychiatric/Neurological: No seizure, No focal weakness NGG-Acwern-Oaqenr Hx Patient Social History Smoking Status: Former Smoker Former smoker/When Quit: Jun 01, 2008 Have you traveled recently?: No Alcohol Use?: No Pt feels they are or have been: No Immunizations Up To Date Date of Pneumonia Vaccine: May 10, 2016 Date of Influenza Vaccine: Apr 24, 2020 Past Medical History PMH As described under Assessment. Family Medical History Family Medical History: Mother had CAD Allergies and Home Medications Allergies Coded Allergies: Penicillins (Verified Allergy, Mild, 04/19/18) Home Medications Albuterol Sulfate 1 Puff Puff, 2 PUFF IH Q4H PRN for SHORTNESS OF BREATH, (Reported) Aspirin 81 Mg Tablet., 81 MG PO DAILY, (Reported) Atorvastatin Calcium 20 Mg Tablet, 10 MG PO DAILY, (Reported) TAKES 1/2 OF A 20MG TAB LAST FILLED 02-21-2020 #45/90 DAY SUPPLY Cetirizine HCl 10 Mg Tablet, 10 MG PO HS, (Reported) Cholecalciferol (Vitamin D3) 125 Mcg Tablet, 125 MCG PO DAILY, (Reported) Cyanocobalamin (Vitamin B-12) 1,000 Mcg Capsule, 1,000 MCG PO DAILY, (Reported) Hydrocodone/Acetaminophen 1 Each Tablet, 1 EA PO Q6H PRN for PAIN-MODERATE (5- 7), (Reported) Levothyroxine Sodium 25 Mcg Tablet, 25 MCG PO DAILY, (Reported) Metoprolol Tartrate 25 Mg Tablet, 25 MG PO BID, (Reported) Metronidazole 500 Mg Tablet, 500 MG PO TID, (Reported) FILLED 09-24-2020 #21/7 DAY SUPPLY Ondansetron 4 Mg Tab.rapdis, 4 MG PO Q4H PRN for NAUSEA/VOMITING-1ST LINE, (Reported) Pantoprazole Sodium 40 Mg Tablet.dr, 40 MG PO HS, (Reported) Sertraline HCl 50 Mg Tablet, 50 MG PO HS, (Reported) Trazodone HCl 50 Mg Tablet, 50-100 MG PO HS PRN for SLEEP, (Reported) Umeclidinium Brm/Vilanterol Tr 1 Each Blst.w.dev, 1 EACH IH DAILY, (Reported) Physical Exam-Cardiology Physical Exam Vital Signs/I&O 10/01/20 10/01/20 10/01/20 10/01/20 21:00 21:18 21:40 22:00 Temp 37.6 37.7 Pulse 100 106 Resp 11 14 B/P (MAP) 117/44 (68) 104/47 (66) Pulse Ox 91 90 90 O2 Delivery Nasal Cannula Nasal Cannula Nasal Cannula Nasal Cannula O2 Flow Rate 2.00 4.00 5.00 5.00 10/01/20 10/02/20 10/02/20 10/02/20 23:00 00:00 00:00 01:00 Temp 37.7 37.6 37.6 Pulse 105 105 103 Resp 13 11 11 B/P (MAP) 131/50 (77) 125/47 (73) 129/47 (74) Pulse Ox 90 91 89 88 O2 Delivery Nasal Cannula Nasal Cannula Nasal Cannula Nasal Cannula O2 Flow Rate 5.00 5.00 5.00 5.00 10/02/20 10/02/20 10/02/20 10/02/20 01:00 01:55 02:00 03:00 Temp 37.7 37.7 Pulse 109 103 106 Resp 19 B/P (MAP) 145/55 (85) 139/48 (78) Pulse Ox 92 91 88 O2 Delivery Nasal Cannula Nasal Cannula Nasal Cannula O2 Flow Rate 5.00 5.00 5.00 10/02/20 10/02/20 10/02/20 10/02/20 04:00 04:00 05:00 06:00 Temp 37.5 37.5 37.4 Pulse 99 99 94 Resp 16 18 18 B/P (MAP) 148/50 (82) 153/52 (85) 147/47 (80) Pulse Ox 91 88 90 90 O2 Delivery Nasal Cannula Nasal Cannula Nasal Cannula Nasal Cannula O2 Flow Rate 5.00 5.00 5.00 5.00 10/02/20 10/02/20 06:54 07:00 Pulse 98 Pulse Ox 92 O2 Delivery Nasal Cannula O2 Flow Rate 5.00 10/02/20 00:00 Intake Total 2150 ml Output Total 925 ml Balance 1225 ml Capillary Refill : Less Than 3 SecondsLess Than 3 Seconds Constitutional: No AAO x 3 (lethargic, awakens easily, oriented to self and place ) HEENT: PERRL, hearing is well preserved Neck: No carotid bruit; carotid pulses are 2 + bilaterally Respiratory: other (fair air entry) Cardiovascular: No JVD; tachycardia, S1 and S2 Gastrointestinal: other (not palpated d/t recent surgery and wound vac in place; NG tube in place) Extremities: other (mod bilat LE swelling) Neurologic/Psychiatric: grossly intact (moving extremities) Skin: pallor; No rash on exposed areas, No ulcerations on exposed areas Data Review Labs Laboratory Tests 10/01/20 11:15: Glucometer 95 10/01/20 18:37: Glucometer 99 10/02/20 01:08: Glucometer 105 10/02/20 02:49: White Blood Count 13.3H, Red Blood Count 3.37L, Hemoglobin 8.3L, Hematocrit 27L, Mean Corpuscular Volume 81, Mean Corpuscular Hemoglobin 25, Mean Corpuscular Hemoglobin Concent 30L, Red Cell Distribution Width 15.9H, Platelet Count 302, Mean Platelet Volume 9.5, Immature Granulocyte % (Auto) 2, Neutrophils (%) (Auto) 83H, Lymphocytes (%) (Auto) 6L, Monocytes (%) (Auto) 9, Eosinophils (%) (Auto) 1, Basophils (%) (Auto) 0, Neutrophils # (Auto) 11.0H, Lymphocytes # (Auto) 0.8L, Monocytes # (Auto) 1.2H, Eosinophils # (Auto) 0.1, Basophils # (Auto) 0.0, Immature Granulocyte # (Auto) 0.2H, Sodium Level 139, Potassium Level 4.1, Chloride Level 107, Carbon Dioxide Level 22, Anion Gap 10, Blood Urea Nitrogen 16, Creatinine 1.31H, Estimat Glomerular Filtration Rate 55, BUN/Creatinine Ratio 12, Glucose Level 105, Calcium Level 7.9L, Phosphorus Level 2.7, Magnesium Level 1.6 Microbiology 09/30/20 Gram Stain - Final, Resulted 09/30/20 Sputum Culture - Preliminary, Resulted YEAST 09/28/20 Blood Culture - Preliminary, Resulted No growth 09/28/20 Urine Culture - Final, Complete NO GROWTH Radiology NAME: MARIA D HIGHTOWER [facility] REC#: [id number] PT STATUS: ADM IN : 1955 PHYSICIAN: BEBE MARTIN DO ADMIT DATE: 09/28/20/ICU Draft Date of Exam:10/01/20 CHEST 1 VIEW, AP/PA ONLY INDICATION: Small bowel obstruction. Time of exam 1:15 a.m. Correlation is made with prior chest from 09/29/2020. Patient is intubated. ET tube has tip in good position above the sheldon. There are changes of median sternotomy and CABG. Left upper extremity PICC line appears at the tip of the SVC right atrial junction. There appear to be some infiltrates or atelectasis in both bases. No significant effusion is seen. Mid and upper lung marques are clear. There is no pneumothorax. There are postoperative changes to bilateral shoulders. IMPRESSION: Continued mild bibasilar infiltrate or atelectasis, similar to 2 days earlier. Dictated on workstation # [id number] Dict: 10/01/2029 Trans: 10/01/20 0835 [facility] [id number] Interpreted by: PETTY ODEN MD Electronically signed by: A/P-Cardiology Assessment/Admission Diagnosis Wound dehiscence with fistula - wound vac placed - management per Dr. Martin Sepsis - management per medical services S/P right colon resection for colon cancer Sinus tachycardia Coronary artery disease, history of CABG x3 done in 2007. - Last cardiac catheterization was done on July 11, [address] Golden showing patent stent in the proximal LAD, small vessel disease distally, known occluded ZELAYA, patent vein graft to diagonal artery with good flow distally, patent vein graft to the right coronary artery with good flow distally, 50 percent ostial proximal left main stenosis, nondominant circumflex artery. COPD Obstructive sleep apnea, maintained on C Pap H/o an episode of confusion with right sided weakness, had episode of tingling in his fingers and dizziness after micturition probably vasovagal episode, questionable history of TIA. Labile hypertension History of orthostatic hypotension Hyperlipidemia - unable to tolerate statin dose any higher than 5mg Diabetes mellitus Carotid stenosis, mild nonobstructive disease bilaterally. Most recent carotid duplex done in February 2018, I will evaluate carotid ultrasound History of chronic compensated left ventricular diastolic dysfunction, echocardiogram done in April 2019 showing ejection fraction 50-55 percent, grade 2 diastolic dysfunction, left atrium 4.6 cm, aortic valve trivial regurgitation, PA pressure 35-40 mmHg. Continue to monitor History of tobaccoism, patient has been abstinent from smoking since 2007. History of parathyroidectomy done in in November 2018. Discussion and Recomendations Complex management issue with multiple medical issues as noted above Sinus tachycardia - add BB, IV (d/t NPO status) titrate as tolerated Monitor lab closely replace electrolytes as indicated Further recs will be based on his hospital course We would like to thank medical services for this consult KVNG FRIEND Oct 01, 2020 10:28
--- NOTE | 2020-10-01 12:35 | Progress Note ---
Subjective Date Seen by a Provider: Oct 01, 2020 Time Seen by a Provider: 08:30 Subjective/Events-last exam Fwup wound dehiscence with fistula, S/P right colon resection for colon cancer, bowel resection for bowel obstruction, septic shock. Extubated this morning but still requiring pressors for blood pressure. Focused Exam Lactate Level 09/28/20 20:40: Lactic Acid Level 1.65 Time of Focused Exam: 17:49 Objective Exam Vital Signs Date Time Temp Pulse Resp B/P (MAP) Pulse Ox O2 Delivery O2 Flow Rate FiO2 10/01/20 11:00 37.7 112 12 108/45 (66) 90 Nasal Cannula 2.00 10/01/20 10:47 92 Nasal Cannula 2.00 10/01/20 10:00 37.7 110 16 112/44 (66) 88 Nasal Cannula 2.00 10/01/20 09:00 37.7 112 8 103/43 (63) 92 Nasal Cannula 2.00 10/01/20 08:00 37.6 116 14 127/60 (82) 90 Nasal Cannula 3.00 10/01/20 07:59 90 Nasal Cannula 3.00 10/01/20 07:48 36.9 10/01/20 07:00 37.6 115 18 115/56 (75) 92 Nasal Cannula 3.00 10/01/20 06:57 115 10/01/20 06:44 93 Nasal Cannula 3.00 10/01/20 06:15 37.7 108 13 113/50 (71) 92 Nasal Cannula 3.00 10/01/20 06:00 37.7 109 16 92 Nasal Cannula 3.00 10/01/20 05:01 92 Nasal Cannula 3.00 10/01/20 05:00 37.7 117 17 142/64 (90) 91 Nasal Cannula 3.00 10/01/20 04:55 Nasal Cannula 3.00 10/01/20 04:00 37.9 92 26 117/58 (77) 95 Mechanical Ventilator 30.00 10/01/20 03:49 95 Mechanical Ventilator 30 10/01/20 03:00 37.9 95 24 133/46 (75) 94 Mechanical Ventilator 30.00 10/01/20 02:40 93 94/72 10/01/20 02:12 95 116/60 10/01/20 02:00 37.9 93 19 134/49 (77) 93 Mechanical Ventilator 30.00 10/01/20 01:58 92 24 94 30 10/01/20 01:00 92 10/01/20 01:00 37.9 92 125/46 (72) 95 Mechanical Ventilator 30.00 10/01/20 00:17 93 138/50 10/01/20 00:00 95 Mechanical Ventilator 30 10/01/20 00:00 37.8 93 23 136/50 (78) 95 Mechanical Ventilator 30.00 09/30/20 23:00 37.8 97 24 133/49 (77) 95 Mechanical Ventilator 30.00 09/30/20 22:00 37.9 100 32 112/44 (66) 94 Mechanical Ventilator 30.00 09/30/20 21:57 98 112/43 09/30/20 21:52 Mechanical Ventilator 30.00 09/30/20 21:51 98 105/43 09/30/20 21:41 95 24 97 30 09/30/20 21:35 98 135/60 09/30/20 21:00 37.9 99 23 127/49 (75) 97 Mechanical Ventilator 40.00 09/30/20 20:00 37.9 101 24 87/79 (82) 97 Mechanical Ventilator 40.00 09/30/20 20:00 98 Mechanical Ventilator 40 09/30/20 19:41 97 81/42 09/30/20 19:00 37.9 98 23 108/48 (68) 96 Mechanical Ventilator 40.00 09/30/20 19:00 100 09/30/20 18:16 100 105/45 09/30/20 18:00 37.9 100 23 84/77 (79) 96 Mechanical Ventilator 40.00 09/30/20 17:58 100 24 97 40 09/30/20 17:00 37.9 96 24 95/47 (63) 94 Mechanical Ventilator 40.00 09/30/20 16:25 Mechanical Ventilator 40 09/30/20 16:00 37.9 97 24 105/46 (65) 95 Mechanical Ventilator 40.00 09/30/20 15:00 37.8 96 15 117/47 (70) 96 Mechanical Ventilator 40.00 09/30/20 14:14 107 95/41 09/30/20 14:02 107 24 95 40 09/30/20 14:00 Automatic Cuff 09/30/20 14:00 37.9 108 23 100/44 (62) 95 Mechanical Ventilator 40.00 I & O 10/01/20 07:00 Intake Total 9061 ml Output Total 1975 ml Balance 7086 ml Capillary Refill : Less Than 3 SecondsLess Than 3 Seconds General Appearance: No Apparent Distress Respiratory: Lungs Clear Cardiovascular: Systolic Murmur, Tachycardia Gastrointestinal: abnormal bowel sounds, other (wound vac in place) Extremity: Non Tender, No Calf Tenderness, Pedal Edema Neurologic/Psychiatric: Other (groggy) Results Lab Laboratory Tests 09/30/20 15:45: White Blood Count 17.6H, Red Blood Count 3.92L, Hemoglobin 9.8L, Hematocrit 32L, Mean Corpuscular Volume 82, Mean Corpuscular Hemoglobin 25, Mean Corpuscular Hemoglobin Concent 31L, Red Cell Distribution Width 16.2H, Platelet Count 338, Mean Platelet Volume 9.4, Immature Granulocyte % (Auto) 2, Neutrophils (%) (Auto) 86H, Lymphocytes (%) (Auto) 4L, Monocytes (%) (Auto) 7, Eosinophils (%) (Auto) 0, Basophils (%) (Auto) 0, Neutrophils # (Auto) 15.2H, Lymphocytes # (Auto) 0.7L, Monocytes # (Auto) 1.3H, Eosinophils # (Auto) 0.0, Basophils # (Auto) 0.1, Immature Granulocyte # (Auto) 0.4H, Sodium Level 133L, Potassium Level 4.3, Chloride Level 105, Carbon Dioxide Level 20L, Anion Gap 8, Blood Urea Nitrogen 18, Creatinine 1.54H, Estimat Glomerular Filtration Rate 45, BUN/Creatinine Ratio 12, Glucose Level 287H, Calcium Level 7.0L, Corrected Ca lcium 8.7, Phosphorus Level 3.5, Magnesium Level 1.9, Total Bilirubin 0.3, Aspartate Amino Transf (AST/SGOT) 13, Alanine Aminotransferase (ALT/SGPT) 9, Alkaline Phosphatase 32L, Total Protein 4.4L, Albumin 1.9L, Procalcitonin 8.28H 09/30/20 17:14: Glucometer 237H 10/01/20 00:09: Glucometer 236H 10/01/20 03:30: White Blood Count 15.9H, Red Blood Count 3.40L, Hemoglobin 8.6L, Hematocrit 28L, Mean Corpuscular Volume 82, Mean Corpuscular Hemoglobin 25, Mean Corpuscular Hemoglobin Concent 31L, Red Cell Distribution Width 15.9H, Platelet Count 314, Mean Platelet Volume 9.5, Immature Granulocyte % (Auto) 2, Neutrophils (%) (Auto) 84H, Lymphocytes (%) (Auto) 5L, Monocytes (%) (Auto) 8, Eosinophils (%) (Auto) 1, Basophils (%) (Auto) 0, Neutrophils # (Auto) 13.4H, Lymphocytes # (Auto) 0.8L, Monocytes # (Auto) 1.3H, Eosinophils # (Auto) 0.1, Basophils # (Auto) 0.0, Immature Granulocyte # (Auto) 0.3H, Sodium Level 133L, Potassium Level 4.1, Chloride Level 105, Carbon Dioxide Level 20L, Anion Gap 8, Blood Urea Nitrogen 18, Creatinine 1.38H, Estimat Glomerular Filtration Rate 52, BUN/Creatinine Ratio 13, Glucose Level 246H, Calcium Level 7.1L, Phosphorus Level 2.6, Magnesium Level 1.8, Blood Gas Puncture Site RIGHT RADIAL, Blood Gas Patient Temperature 37.9, Arterial Blood pH 7.35L, Arterial Blood Partial Pressure CO2 45, Arterial Blood Partial Pressure O2 106H, Arterial Blood HCO3 23, Arterial Blood Total CO2 24.3, Arterial Blood Oxygen Saturation 98, Arterial Blood Base Excess -1.8, Peter Test YES-POS, Blood Gas Ventilator Setting YES, Blood Gas Inspired Oxygen 30% 10/01/20 04:33: Glucometer 216H 10/01/20 04:35: Blood Gas Puncture Site RIGHT RADIAL, Blood Gas Patient Temperature 36.9, Arterial Blood pH 7.35L, Arterial Blood Partial Pressure CO2 45, Arterial Blood Partial Pressure O2 104H, Arterial Blood HCO3 23, Arterial Blood Total CO2 24.6, Arterial Blood Oxygen Saturation 98, Arterial Blood Base Excess -1.8, Peter Test YES-POS, Blood Gas Ventilator Setting YES, Blood Gas Inspired Oxygen 30% 10/01/20 11:15: Glucometer 95 Microbiology 09/30/20 Gram Stain - Final, Resulted 09/30/20 Sputum Culture - Preliminary, Resulted YEAST 09/28/20 Blood Culture - Preliminary, Resulted No growth 09/28/20 Urine Culture - Final, Complete NO GROWTH Assessment/Plan Assessment/Plan Assess & Plan/Chief Complaint 1. Severe Septic Shock due to Wound Dehiscence with fistula from recent right sided colectomy for colon cancer--S/P Exp Lap with bowel obstruction and bowel resection x2--back to surgery yesterday for abdominal cleanout and wound vac placement--extubated this morning, wound vac in place, IV abx, on 2 pressors, gut rest with TPN, pulmonology consulted 2. Hypertension--currently hypotensive due to shock but with tachycardia and history of CAD is complex management so will consult his facility worker 3. DMII--on accuchecks with SSI per ICU protocol 4. COPD--on duoneb routinely Clinical Quality Measures Admission Status Admission Dx 1. Abdominal Wound Dehiscence with Fistula/Incisional Hernia with Incarcerated Bowel--S/P recent right hemicolectomy for right sided colon cancer--Gut rest, IV antibiotics, surgical management 2. Hypertension--monitor and use lopressor prn 3. DMII--accuchecks with SSI 4. COPD--SVNs/inhalers prn YENI RUVALCABA DO Oct 01, 2020 12:35
[2020-10-01] MEDS: ENOXAPARIN 40 MG/0.4 ML (LOVENOX) SYR SC SCH (13:23)
[2020-10-01] MEDS: meTOprolol 5 MG/5 ML (LOPRESSOR) VIAL IV SCH ×2 (14:00→18:38)
--- NOTE | 2020-10-01 14:25 | Physical Therapy Evaluation ---
PT Evaluation-General Medical Diagnosis Admission Date Sep 28, 2020 at 20:30 Medical Diagnosis: colon resection Onset Date: Sep 28, 2020 Therapy Diagnosis Therapy Diagnosis: impaired mobility, strength, endurance Height/Weight Height (Feet): 5 Height (Inches): 8.00 Weight (Pounds): 238 Weight (Ounces): 5.0 Precautions Precautions/Isolations: Standard Precautions Referral Physician: Richard Reason for Referral: Evaluation/Treatment Medical History Pertinent Medical History: CAD, COPD, DM, HTN, NE Additional Medical History Surgeries History of Surgeries: Yes (shouolder bilat, hiatal hernia x3.lower herniax2,torn meniscus left) Surgeries: Abdominal, Bowel Surgery, CABG, Coronary Stent, Joint Replacement, Orthopedic Respiratory History of Respiratory Disorde: Yes (COVID-19 04/2020-HOSPITALIZED X 14 DAYS) Respiratory Disorders: Pneumonia, Sleep Apnea, COPD, Emphysema Cardiovascular History of Cardiac Disorders: Yes (CABG AND STENT X 1) Cardiac Disorders: Coronary Artery Disease, Heart Attack, High Cholesterol, Hypertension Neurological History of Neurological Disord: Yes Neurological Disorders: TIA Reproductive System Hx Reproductive Disorders: No Sexually Transmitted Disease: No HIV/AIDS: No Genitourinary History of Genitourinary Disor: No Gastrointestinal History of Gastrointestinal Di: Yes (ADENOCARCINOMA OF COLON DX 08/2020) Gastrointestinal Disorders: Abdominal Hernia, Gastroesophageal Reflux, Diverticulosis, Polyps, Hiatal Hernia Musculoskeletal History of Musculoskeletal Dis: Yes (ARTHRITIS IN HANDS, MULTIPLE ORTHO SURGERIES) Musculoskeletal Disorders: Arthritis Endocrine History of Endocrine Disorders: Yes Endocrine Disorders: Hypothyroidsim, Diabetes, Non-Insulin dep HEENT History of HEENT Disorders: Yes Loss of Vision: Bilateral Hearing Impairment: Hard of Hearing, Bilateral Hearing Aide Cancer History of Cancer: Yes Cancer: Colon Reviewed History: Yes Social History Home: Single Level Current Living Status: Spouse Entry Into Home: Stairs With Railing PT Steps Into Home: 4 Prior Prior Level of Function SCALE: Activities may be completed with or without assistive devices. 1-Gkbymdmwbe-zdjhkbn completes the activity by him/herself with no assistance from a helper. 5-Set-up or Clean-up Assistance-helper sets up or cleans up; patient completes activity. Cassoday assists only prior to or following the activity. 4-Supervision or Touching Assistance-helper provides verbal cues and/or touching/steadying and/or contact guard assistance as patient completes activity. Assistance may be provided throughout the activity or intermittently. 3-Partial/Moderate Assistance-helper does LESS THAN HALF the effort. Cassoday lifts, holds or supports trunk or limbs, but provides less than half the effort. 2-Substantial/Maximal Assistance-helper does MORE THAN HALF the effort. Cassoday lifts or holds trunk or limbs and provides more than half the effort. 7-Kjlzvukse-zxckiw does ALL the effort. Patient does none of the effort to complete the activity. Or, the assistance of 2 or more helpers is required for the patient to complete the activity. If activity was not attempted, code reason: 7-Patient Refused. 9-Not Applicable-not attempted and the patient did not perform the activity before the current illness, exacerbation or injury. 10-Not Attempted due to Environmental Limitations-(lack of equipment, weather restraints, etc.). 88-Not Attempted due to Medical Conditions or Safety Concerns. Bed Mobility: 6 Transfers (B,C,W/C): 6 Gait: 6 Stairs: 6 Indoor Mobility (Ambulation): Independent Stairs: Independent PT Evaluation-Current Subjective Patient in bed pre tx, agrees to PT, has 6/10 pain in abdomen. Nurse states patient is not ready to get out of bed or sit on the side of the bed but can be assessed laying down. Pt/Family Goals to be independent at home Objective Patient Orientation: Person, Place, Situation Attachments: NG Tube, Oxygen, Macias Catheter, IV ROM/Strength ROM Lower Extremities slightly limited due to weakness, pain, and some edema Strength Lower Extremities LLE (hip flexion 3-/5, knee flexion 3/5, knee extension 3/5, dorsiflexion 3+/5), RLE (hip flexion 3-/5, knee flexion 3/5, knee extension 3/5, dorsiflexion 3+/5) Sensory Vision: Wears Glasses Hearing: Functional Sensation Right Lower Extremit: Intact Sensation Left Lower Extremity: Intact Treatment BLE supine exercises x15 (AP, QS, HS, SAQ, SLR, hip abd/add, GS), patient performed HS, SLR, and hip abd/add with AAROM but the rest with AROM Assessment/Needs Patient has impaired mobility, strength, endurance. Patient in bed post tx with nurse call, phone, tray, all needs met. Patient has BLE weakness, needs AAROM for half of the exercises. Rehab Potential: Fair PT Housekeeping Room Attendant Goals Longterm Goals PT Housekeeping Room Attendant Goals Time Frame: Oct 08, 2020 Roll Left & Right (QC): 3 Sit to Lying (QC): 3 Lying-Sitting on Side/Bed(QC): 3 Sit to Stand (QC): 3 Chair/Qht-so-Bhbeo Xfer(QC): 3 Walk 10 feet (QC): 3 PT Plan Problem List Problem List: Activity Tolerance, Functional Strength, Safety, Balance, Gait, Transfer, Bed Mobility, ROM Treatment/Plan Treatment Plan: Continue Plan of Care Treatment Plan: Bed Mobility, Education, Functional Activity Jossy, Functional Strength, Gait, Safety, Therapeutic Exercise, Transfers Treatment Duration: Oct 08, 2020 Frequency: 6 times per week Estimated Hrs Per Day: .25 hour per day Patient and/or Family Agrees t: Yes Safety Risks/Education Patient Education: Correct Positioning, Safety Issues Teaching Recipient: Patient Teaching Methods: Demonstration, Discussion Response to Teaching: Reinforcement Needed Discharge Recommendations Plan Patient will perform bed mobility and transfer training, balance and endurance training, functional strengthening, stair training, gait training, and education, to improve functional mobility and independence at home. Therapy Discharge Recommendati: 24 Hour Supervision, Post Acute PT Time/GCodes Time In: 1352 Time Out: 1403 Total Billed Treatment Time: 11 Total Billed Treatment 1 visit ADA JONES PT Oct 01, 2020 14:24
--- NOTE | 2020-10-01 19:49 | Consultation-Cardiology ---
HPI-Cardiology Cardiology Consultation: Date of Consultation 10/01/20 Time Seen by a Provider: 19:30 Date of Admission Attending Physician Magdy Dailey MD Admitting Physician Petra Ayala DO Consulting Physician HANNAH GARRETT MD, MA, FACP, FACC, FSCAI, CCDS HPI: Chief Complaint: Reason for Cardiology consultation: Sinus tachycardia HPI Mr. Gómez is a 64 yr old male who I have seen in ICU 12. We have been consulted for cardiac management by Dr. Ayala. He is currently in bed. He has a wound vac in place to his abdomen. He is drowsy. He does not report any c/o CP. His spouse is at the bedside. He denies any SOB. He denies any abd pain at this time. Review of Systems-Cardiology Review of Systems Constitutional: tiredness Eyes: No vision change Ears/Nose/Throat: No recent hearing loss Respiratory: As described under HPI Cardiovascular: As described under HPI Gastrointestinal: As described under HPI Skin: other (wound vac in place to abdomen); No rash on exposed areas, No ulcerations on exposed areas Psychiatric/Neurological: No seizure, No focal weakness GMP-Agawtb-Jftbbi Hx Patient Social History Smoking Status: Former Smoker Former smoker/When Quit: Jun 01, 2008 Have you traveled recently?: No Alcohol Use?: No Pt feels they are or have been: No Immunizations Up To Date Date of Pneumonia Vaccine: May 10, 2016 Date of Influenza Vaccine: Apr 24, 2020 Past Medical History PMH As described under Assessment. Family Medical History Family Medical History: Mother had CAD Allergies and Home Medications Allergies Coded Allergies: Penicillins (Verified Allergy, Mild, 04/19/18) Home Medications Albuterol Sulfate 1 Puff Puff, 2 PUFF IH Q4H PRN for SHORTNESS OF BREATH, (Reported) Aspirin 81 Mg Tablet.dr, 81 MG PO DAILY, (Reported) Atorvastatin Calcium 20 Mg Tablet, 10 MG PO DAILY, (Reported) TAKES 1/2 OF A 20MG TAB LAST FILLED 02-21-2020 #45/90 DAY SUPPLY Cetirizine HCl 10 Mg Tablet, 10 MG PO HS, (Reported) Cholecalciferol (Vitamin D3) 125 Mcg Tablet, 125 MCG PO DAILY, (Reported) Cyanocobalamin (Vitamin B-12) 1,000 Mcg Capsule, 1,000 MCG PO DAILY, (Reported) Hydrocodone/Acetaminophen 1 Each Tablet, 1 EA PO Q6H PRN for PAIN-MODERATE (5- 7), (Reported) Levothyroxine Sodium 25 Mcg Tablet, 25 MCG PO DAILY, (Reported) Metoprolol Tartrate 25 Mg Tablet, 25 MG PO BID, (Reported) Metronidazole 500 Mg Tablet, 500 MG PO TID, (Reported) FILLED 09-24-2020 #21/7 DAY SUPPLY Ondansetron 4 Mg Tab.rapdis, 4 MG PO Q4H PRN for NAUSEA/VOMITING-1ST LINE, (Reported) Pantoprazole Sodium 40 Mg Tablet.dr, 40 MG PO HS, (Reported) Sertraline HCl 50 Mg Tablet, 50 MG PO HS, (Reported) Trazodone HCl 50 Mg Tablet, 50-100 MG PO HS PRN for SLEEP, (Reported) Umeclidinium Brm/Vilanterol Tr 1 Each Blst.w.dev, 1 EACH IH DAILY, (Reported) Patient Home Medication List Home Medication List Reviewed: Yes Physical Exam-Cardiology Physical Exam Vital Signs/I&O 10/01/20 10/01/20 10/01/20 10/01/20 07:48 07:59 08:00 09:00 Temp 36.9 37.6 37.7 Pulse 116 112 Resp 14 8 B/P (MAP) 127/60 (82) 103/43 (63) Pulse Ox 90 90 92 O2 Delivery Nasal Cannula Nasal Cannula Nasal Cannula O2 Flow Rate 3.00 3.00 2.00 10/01/20 10/01/20 10/01/20 10/01/20 10:00 10:47 11:00 12:00 Temp 37.7 37.7 Pulse 110 112 Resp 16 12 B/P (MAP) 112/44 (66) 108/45 (66) Pulse Ox 88 92 90 90 O2 Delivery Nasal Cannula Nasal Cannula Nasal Cannula Nasal Cannula O2 Flow Rate 2.00 2.00 2.00 3.00 10/01/20 10/01/20 10/01/20 10/01/20 12:00 12:57 13:00 14:00 Temp 37.8 37.8 37.6 Pulse 112 110 110 104 Resp 24 34 14 B/P (MAP) 108/40 (62) 114/50 (71) 107/52 (70) Pulse Ox 90 93 93 O2 Delivery Nasal Cannula Nasal Cannula Nasal Cannula O2 Flow Rate 2.00 2.00 2.00 10/01/20 10/01/20 10/01/20 10/01/20 15:00 15:03 16:00 16:00 Temp 37.6 37.6 Pulse 105 109 Resp 14 12 B/P (MAP) 120/49 (72) 119/48 (71) Pulse Ox 91 90 91 90 O2 Delivery Nasal Cannula Nasal Cannula Nasal Cannula Nasal Cannula O2 Flow Rate 2.00 2.00 2.00 3.00 10/01/20 10/01/20 10/01/20 10/01/20 17:00 18:00 18:17 18:21 Temp 37.6 37.5 Pulse 106 103 Resp 10 23 B/P (MAP) 116/43 (67) 114/42 (66) Pulse Ox 90 87 87 91 O2 Delivery Nasal Cannula Nasal Cannula Nasal Cannula O2 Flow Rate 2.00 2.00 2.00 3.00 10/01/20 00:00 Intake Total 4751 ml Output Total 825 ml Balance 3926 ml Capillary Refill : Less Than 3 SecondsLess Than 3 Seconds Constitutional: No AAO x 3 (lethargic, awakens easily, oriented to self and place ) HEENT: PERRL, hearing is well preserved Neck: No carotid bruit; carotid pulses are 2 + bilaterally Respiratory: other (fair air entry) Cardiovascular: No JVD; tachycardia, S1 and S2 Gastrointestinal: other (not palpated d/t recent surgery and wound vac in place; NG tube in place) Extremities: other (mod bilat LE swelling) Neurologic/Psychiatric: grossly intact (moving extremities) Skin: pallor; No rash on exposed areas, No ulcerations on exposed areas Data Review Labs Laboratory Tests 10/01/20 00:09: Glucometer 236H 10/01/20 03:30: White Blood Count 15.9H, Red Blood Count 3.40L, Hemoglobin 8.6L, Hematocrit 28L, Mean Corpuscular Volume 82, Mean Corpuscular Hemoglobin 25, Mean Corpuscular Hemoglobin Concent 31L, Red Cell Distribution Width 15.9H, Platelet Count 314, Mean Platelet Volume 9.5, Immature Granulocyte % (Auto) 2, Neutrophils (%) (Auto) 84H, Lymphocytes (%) (Auto) 5L, Monocytes (%) (Auto) 8, Eosinophils (%) (Auto) 1, Basophils (%) (Auto) 0, Neutrophils # (Auto) 13.4H, Lymphocytes # (Auto) 0.8L, Monocytes # (Auto) 1.3H, Eosinophils # (Auto) 0.1, Basophils # (Auto) 0.0, Immature Granulocyte # (Auto) 0.3H, Blood Gas Puncture Site RIGHT RADIAL, Blood Gas Patient Temperature 37.9, Arterial Blood pH 7.35L, Arterial Blood Partial Pressure CO2 45, Arterial Blood Partial Pressure O2 106H, Arterial Blood HCO3 23, Arterial Blood Total CO2 24.3, Arterial Blood Oxygen Saturation 98, Arterial Blood Base Excess -1.8, Peter Test YES-POS, Blood Gas Ventilator Setting YES, Blood Gas Inspired Oxygen 30%, Sodium Level 133L, Potassium Level 4.1, Chloride Level 105, Carbon Dioxide Level 20L, Anion Gap 8, Blood Urea Nitrogen 18, Creatinine 1.38H, Estimat Glomerular Filtration Rate 52, BUN/Creatinine Ratio 13, Glucose Level 246H, Calcium Level 7.1L, Phosphorus Level 2.6, Magnesium Level 1.8 10/01/20 04:33: Glucometer 216H 10/01/20 04:35: Blood Gas Puncture Site RIGHT RADIAL, Blood Gas Patient Temperature 36.9, Arterial Blood pH 7.35L, Arterial Blood Partial Pressure CO2 45, Arterial Blood Partial Pressure O2 104H, Arterial Blood HCO3 23, Arterial Blood Total CO2 24.6, Arterial Blood Oxygen Saturation 98, Arterial Blood Base Excess -1.8, Peter Test YES-POS, Blood Gas Ventilator Setting YES, Blood Gas Inspired Oxygen 30% 10/01/20 11:15: Glucometer 95 10/01/20 18:37: Glucometer 99 Microbiology 09/30/20 Gram Stain - Final, Resulted 09/30/20 Sputum Culture - Preliminary, Resulted YEAST 09/28/20 Blood Culture - Preliminary, Resulted No growth 09/28/20 Urine Culture - Final, Complete NO GROWTH Laboratory Tests 09/30/20 03:40 09/30/20 15:45 10/01/20 03:30 A/P-Cardiology Assessment/Admission Diagnosis Wound dehiscence with fistula - wound vac placed - management per Dr. Ramos Sepsis - management per Medical services S/P right colon resection for colon cancer Sinus tachycardia Coronary artery disease, history of CABG x3 done in 2007. - Last cardiac catheterization was done on July 11, [address] Golden showing patent stent in the proximal LAD, small vessel disease distally, known occluded ZELAYA, patent vein graft to diagonal artery with good flow distally, patent vein graft to the right coronary artery with good flow distally, 50 percent ostial proximal left main stenosis, nondominant circumflex artery. COPD Obstructive sleep apnea, maintained on C Pap H/o an episode of confusion with right sided weakness, had episode of tingling in his fingers and dizziness after micturition probably vasovagal episode, questionable history of TIA. Labile hypertension History of orthostatic hypotension Hyperlipidemia - unable to tolerate statin dose any higher than 5mg Diabetes mellitus Carotid stenosis, mild nonobstructive disease bilaterally. Most recent carotid duplex done in February 2018, I will evaluate carotid ultrasound History of chronic compensated left ventricular diastolic dysfunction, echocardiogram done in April 2019 showing ejection fraction 50-55 percent, grade 2 diastolic dysfunction, left atrium 4.6 cm, aortic valve trivial regurgi tation, PA pressure 35-40 mmHg. Continue to monitor History of tobaccoism, patient has been abstinent from smoking since 2007. History of parathyroidectomy done in in November 2018. Discussion and Recomendations Complex management issue with multiple medical issues as noted above Sinus tachycardia - add BB, IV (d/t NPO status) titrate as tolerated Monitor lab closely replace electrolytes as indicated Further recs will be based on his hospital course We would like to thank medical services for this consult HANNAH GARRETT MD FACP FAC CCDS Oct 01, 2020 19:49
[2020-10-02] MEDS: inSUlin ASPART (NovoLOG) 1 UNIT/0.01 ML (CHARGE PER UNIT) SC SCH ×5 (01:10→23:58)
[2020-10-02] MEDS: meTOprolol 5 MG/5 ML (LOPRESSOR) VIAL IV SCH ×5 (01:12→23:54)
[2020-10-02] MEDS: morphine INJ 4 MG/ML 1 ML (VIAL/SYRINGE) IVP PRN ×8 (01:14→22:55)
[2020-10-02] MEDS: RT-ALBUTEROL/IPRATROPIUM 3 ML (DUONEB) VIAL INH SCH ×6 (01:55→21:40)
[2020-10-02] MEDS: LACTATED RINGERS 1,000 ML IV SCH ×2 (02:33→13:46)
[2020-10-02] MEDS: PIPERACILLIN/TAZO 4.5 GM/NS 100 ML IV SCH ×6 (02:33→18:35)
[2020-10-02 02:55] LABS: BASOPHILS % (AUTO) 0 % (0-10); EOSINOPHILS # (AUTO) 0.1 10^3/uL (0.0-0.3); EOSINOPHILS % (AUTO) 1 % (0-10); HEMATOCRIT 27 % (40-54); HEMOGLOBIN 8.3 g/dL (13.3-17.7); LYMPHOCYTES # (AUTO) 0.8 10^3/uL (1.0-4.0); LYMPHOCYTES % (AUTO) 6 % (12-44); MEAN CORPUSCULAR HEMOGLOBIN 25 pg (25-34); MEAN CORPUSCULAR HGB CONC 30 g/dL (32-36); MEAN CORPUSCULAR VOLUME 81 fL (80-99); MEAN PLATELET VOLUME 9.5 fL (9.0-12.2); MONOCYTES # (AUTO) 1.2 10^3/uL (0.0-1.0); MONOCYTES % (AUTO) 9 % (0-12); NEUTROPHILS % (AUTO) 83 % (42-75); PLATELET COUNT 302 10^3/uL (130-400); WHITE BLOOD COUNT 13.3 10^3/uL (4.3-11.0)
[2020-10-02 03:14] LABS: CALCIUM 7.9 MG/DL (8.5-10.1); CREATININE SERUM 1.31 MG/DL (0.60-1.30); MAGNESIUM 1.6 MG/DL (1.6-2.4); PHOSPHORUS 2.7 MG/DL (2.3-4.7); POTASSIUM 4.1 MMOL/L (3.6-5.0)
--- NOTE | 2020-10-02 04:26 | Pulmonary Progress Note ---
Subjective Time Seen by a Provider: 04:18 Subjective/Events-last exam Pt was extubated yesterday. He is currently on 5 liter NC Sepsis Event Evaluation Height, Weight, BMI Height: 5'8.00" Weight: 238lbs. 5.0oz. [id number]; 33.52 BMI Method:Stated Focused Exam Time of Focused Exam: 17:49 Exam Exam Vital Signs Date Time Temp Pulse Resp B/P (MAP) Pulse Ox O2 Delivery O2 Flow Rate FiO2 10/02/20 01:55 92 Nasal Cannula 5.00 10/02/20 01:00 109 10/01/20 23:00 37.7 105 13 131/50 (77) 90 Nasal Cannula 5.00 10/01/20 22:00 37.7 106 14 104/47 (66) 90 Nasal Cannula 5.00 10/01/20 21:40 Nasal Cannula 5.00 10/01/20 21:18 90 Nasal Cannula 4.00 10/01/20 21:00 37.6 100 11 117/44 (68) 91 Nasal Cannula 2.00 10/01/20 20:00 37.6 104 18 127/46 (73) 92 Nasal Cannula 2.00 10/01/20 20:00 91 Nasal Cannula 2.00 10/01/20 19:00 102 10/01/20 19:00 37.5 100 33 111/44 (66) 92 Nasal Cannula 2.00 10/01/20 18:21 91 3.00 10/01/20 18:17 87 Nasal Cannula 2.00 10/01/20 18:00 37.5 103 23 114/42 (66) 87 Nasal Cannula 2.00 10/01/20 17:00 37.6 106 10 116/43 (67) 90 Nasal Cannula 2.00 10/01/20 16:00 90 Nasal Cannula 3.00 10/01/20 16:00 37.6 109 12 119/48 (71) 91 Nasal Cannula 2.00 10/01/20 15:03 90 Nasal Cannula 2.00 10/01/20 15:00 37.6 105 14 120/49 (72) 91 Nasal Cannula 2.00 10/01/20 14:00 37.6 104 14 107/52 (70) 93 Nasal Cannula 2.00 10/01/20 13:00 37.8 110 34 114/50 (71) 93 Nasal Cannula 2.00 10/01/20 12:57 110 10/01/20 12:00 37.8 112 24 108/40 (62) 90 Nasal Cannula 2.00 10/01/20 12:00 90 Nasal Cannula 3.00 10/01/20 11:00 37.7 112 12 108/45 (66) 90 Nasal Cannula 2.00 10/01/20 10:47 92 Nasal Cannula 2.00 10/01/20 10:00 37.7 110 16 112/44 (66) 88 Nasal Cannula 2.00 10/01/20 09:00 37.7 112 8 103/43 (63) 92 Nasal Cannula 2.00 10/01/20 08:00 37.6 116 14 127/60 (82) 90 Nasal Cannula 3.00 10/01/20 07:59 90 Nasal Cannula 3.00 10/01/20 07:48 36.9 10/01/20 07:00 37.6 115 18 115/56 (75) 92 Nasal Cannula 3.00 10/01/20 06:57 115 10/01/20 06:44 93 Nasal Cannula 3.00 10/01/20 06:15 37.7 108 13 113/50 (71) 92 Nasal Cannula 3.00 10/01/20 06:00 37.7 109 16 92 Nasal Cannula 3.00 10/01/20 05:01 92 Nasal Cannula 3.00 10/01/20 05:00 37.7 117 17 142/64 (90) 91 Nasal Cannula 3.00 10/01/20 04:55 Nasal Cannula 3.00 I & O 10/02/20 07:00 Intake Total 3270 ml Output Total 1375 ml Balance 1895 ml Height & Weight Height: 5'8.00" Weight: 238lbs. 5.0oz. 107.221222oe; 33.52 BMI Method:Stated General Appearance: No Apparent Distress Respiratory: Lungs Clear, Normal Breath Sounds, No Accessory Muscle Use, No Respiratory Distress Cardiovascular: Regular Rate, Rhythm, No Murmur Capillary Refill: Less Than 3 Seconds Peripheral Pulses: 2+ Radial Pulses (R), 2+ Radial Pulses (L) Gastrointestinal: distended (slightly more distended and hard than yesterday), other (dressing/wound vac in place, no leaking) Extremity: No Pedal Edema, Other (pt has edema in his hands) Neurologic/Psychiatric: Other (groggy) Skin: Normal Color, Warm/Dry Results Lab Laboratory Tests 09/30/20 15:45 10/01/20 03:30 10/02/20 02:49 Assessment/Plan Assessment/Plan Acute respiratory failure s/p surgery -Currently on 5 liter NC -s/p extubation Severe septic shock -Now off Levophed and Vasopressin PNA- present on admission -Sputum shows yeast -Add Eraxis -Decrease IVF to 75ml/hr -Continue Zosyn -MRSA swab is negative -Boogie cultures negative thus far and sputum is pending -Improving Leukocytosis s/p multiple surgeries secondary to complications. -Boogie cultures pending Hyperglycemia -improving -Continue SSI Wound Dehiscence with fistula from recent right sided colectomy for colon cancer--S/P Exp Lap with bowel obstruction and bowel resection x2--followed by repeat abdominal surgical cleanout and wound vac placement S/P recent right hemicolectomy for right sided colon cancer 09/20 Hx of hypothyroid - Synthroid IV Acute renal failure - improving - IVF -Bladder pressures are <20 per RN Malnutrition -Diet per surgery COPD hx - SVNS DMII -Monitor -SSI RACHEL HANKINS DO Oct 02, 2020 04:26
[2020-10-02] MEDS ORDERED: ANIDULAFUNGIN INJECTION 200 MG in NS (IVPB) 250 ML IV ONE (04:30)
[2020-10-02] MEDS: MAGNESIUM 1 GM/100 ML IVPB 100 ML IV SCH ×2 (04:46→04:47)
[2020-10-02] MEDS: NOREPINEPHRINE 4 MG/250 ML 250 ML IV SCH ×3 (05:32→20:44)
--- NOTE | 2020-10-02 07:39 | Diagnostic Imaging Report ---
EXAMINATION: Chest radiograph, portable AP view. DATE: 10/02/2020 2:42 AM INDICATION: 64-year-old male, status post exploratory laparoscopy. COMPARISON: October 01, 2020. FINDINGS: There are bilateral shoulder prostheses. There are median sternotomy wires. The nasogastric tube is in the stomach. Stable overall appearance of the cardiomediastinal silhouette. The previously noted endotracheal tube has been removed. There is a left-sided venous line with tip near the level of the cavoatrial junction. There is obscuration of visualization of left hemidiaphragm and blunting of the left lateral costophrenic angle. There are bilateral interstitial and/or alveolar opacities. IMPRESSION: 1. Multifocal bilateral interstitial and/or alveolar opacities which appear increased since the comparison exam. This could reflect edema, multifocal pneumonia, or other alveolar consolidative process. 2. Probable left pleural effusion. 3. Support lines and tubes as above. Dictated by: Dictated on workstation # [id number]
--- NOTE | 2020-10-02 07:59 | Progress Note - Surgery ---
VONDA BERMANK MED STUDENT 10/02/20 0758: Subjective Date Seen by a Provider: Oct 02, 2020 Time Seen by a Provider: 07:30 Subjective/Events-last exam Pt is awake and laying in bed this morning. States his pain is about the same as it was yesterday. Has been eating ice chips with no difficulties swallowing and no nausea or vomiting. Has not passed gas or had a bowel movement yet. He is using IS. PT saw him and moved him yesterday, stated that it went well and he didn't have too much pain. Macias is in place, about 60mL of urine in tube. Wound vac in place with less than 200mL. NG tube in place with about 850mL in collection. Denies Chest pain, SOB, pain in legs this morning. states pt seems a bit confused. Pt admits to feeling a little foggy and out of it but is alert to person, place, and time. They have no other questions or concerns this morning. Review of Systems General: No Chills HEENT: No Head Aches, No Visual Changes, No Dysphasia Pulmonary: No Dyspnea, No Pleuritic Chest Pain Cardiovascular: No: Chest Pain Gastrointestinal: No: Nausea, Vomiting Genitourinary: No Dysuria Musculoskeletal: No: leg pain Neurological: Confusion Focused Exam Time of Focused Exam: 17:49 Objective Exam Vital Signs Date Time Temp Pulse Resp B/P (MAP) Pulse Ox O2 Delivery O2 Flow Rate FiO2 10/02/20 06:54 92 Nasal Cannula 5.00 10/02/20 06:00 37.4 94 18 147/47 (80) 90 Nasal Cannula 5.00 10/02/20 05:00 37.5 99 18 153/52 (85) 90 Nasal Cannula 5.00 10/02/20 04:00 37.5 99 16 148/50 (82) 88 Nasal Cannula 5.00 10/02/20 04:00 91 Nasal Cannula 5.00 10/02/20 03:00 37.7 106 19 139/48 (78) 88 Nasal Cannula 5.00 10/02/20 02:00 37.7 103 145/55 (85) 91 Nasal Cannula 5.00 10/02/20 01:55 92 Nasal Cannula 5.00 10/02/20 01:00 109 10/02/20 01:00 37.6 103 11 129/47 (74) 88 Nasal Cannula 5.00 10/02/20 00:00 37.6 105 11 125/47 (73) 89 Nasal Cannula 5.00 10/02/20 00:00 91 Nasal Cannula 5.00 10/01/20 23:00 37.7 105 13 131/50 (77) 90 Nasal Cannula 5.00 10/01/20 22:00 37.7 106 14 104/47 (66) 90 Nasal Cannula 5.00 10/01/20 21:40 Nasal Cannula 5.00 10/01/20 21:18 90 Nasal Cannula 4.00 10/01/20 21:00 37.6 100 11 117/44 (68) 91 Nasal Cannula 2.00 10/01/20 20:00 37.6 104 18 127/46 (73) 92 Nasal Cannula 2.00 10/01/20 20:00 91 Nasal Cannula 2.00 10/01/20 19:00 102 10/01/20 19:00 37.5 100 33 111/44 (66) 92 Nasal Cannula 2.00 10/01/20 18:21 91 3.00 10/01/20 18:17 87 Nasal Cannula 2.00 10/01/20 18:00 37.5 103 23 114/42 (66) 87 Nasal Cannula 2.00 10/01/20 17:00 37.6 106 10 116/43 (67) 90 Nasal Cannula 2.00 10/01/20 16:00 90 Nasal Cannula 3.00 10/01/20 16:00 37.6 109 12 119/48 (71) 91 Nasal Cannula 2.00 10/01/20 15:03 90 Nasal Cannula 2.00 10/01/20 15:00 37.6 105 14 120/49 (72) 91 Nasal Cannula 2.00 10/01/20 14:00 37.6 104 14 107/52 (70) 93 Nasal Cannula 2.00 10/01/20 13:00 37.8 110 34 114/50 (71) 93 Nasal Cannula 2.00 10/01/20 12:57 110 10/01/20 12:00 37.8 112 24 108/40 (62) 90 Nasal Cannula 2.00 10/01/20 12:00 90 Nasal Cannula 3.00 10/01/20 11:00 37.7 112 12 108/45 (66) 90 Nasal Cannula 2.00 10/01/20 10:47 92 Nasal Cannula 2.00 10/01/20 10:00 37.7 110 16 112/44 (66) 88 Nasal Cannula 2.00 10/01/20 09:00 37.7 112 8 103/43 (63) 92 Nasal Cannula 2.00 10/01/20 08:00 37.6 116 14 127/60 (82) 90 Nasal Cannula 3.00 10/01/20 07:59 90 Nasal Cannula 3.00 I & O 10/02/20 07:00 Intake Total 3270 ml Output Total 2125 ml Balance 1145 ml Capillary Refill : Less Than 3 SecondsLess Than 3 Seconds General Appearance: No Apparent Distress Respiratory: Lungs Clear, Normal Breath Sounds, No Accessory Muscle Use, No Respiratory Distress Cardiovascular: Regular Rate, Rhythm, No Murmur, Normal Peripheral Pulses Peripheral Pulses: 2+ Radial Pulses (R), 2+ Radial Pulses (L) Gastrointestinal: non tender (Pt denies pain when palpating), distended (Slightly softer abdomen than yesterday, distention about the same), other (dressing/wound vac in place, no leaking) Extremity: Non Tender, No Calf Tenderness, Other (pt has edema in his hands) Neurologic/Psychiatric: Alert, Oriented x3, Other (groggy) Skin: Normal Color, Warm/Dry Results Lab Laboratory Tests 10/01/20 11:15: Glucometer 95 10/01/20 18:37: Glucometer 99 10/02/20 01:08: Glucometer 105 10/02/20 02:49: White Blood Count 13.3H, Red Blood Count 3.37L, Hemoglobin 8.3L, Hematocrit 27L, Mean Corpuscular Volume 81, Mean Corpuscular Hemoglobin 25, Mean Corpuscular Hemoglobin Concent 30L, Red Cell Distribution Width 15.9H, Platelet Count 302, Mean Platelet Volume 9.5, Immature Granulocyte % (Auto) 2, Neutrophils (%) (Auto) 83H, Lymphocytes (%) (Auto) 6L, Monocytes (%) (Auto) 9, Eosinophils (%) (Auto) 1, Basophils (%) (Auto) 0, Neutrophils # (Auto) 11.0H, Lymphocytes # (Auto) 0.8L, Monocytes # (Auto) 1.2H, Eosinophils # (Auto) 0.1, Basophils # (Auto) 0.0, Immature Granulocyte # (Auto) 0.2H, Sodium Level 139, Potassium Level 4.1, Chloride Level 107, Carbon Dioxide Level 22, Anion Gap 10, Blood Urea Nitrogen 16, Creatinine 1.31H, Estimat Glomerular Filtration Rate 55, BUN/Creatinine Ratio 12, Glucose Level 105, Calcium Level 7.9L, Phosphorus Level 2.7, Magnesium Level 1.6 Microbiology 09/30/20 Gram Stain - Final, Resulted 09/30/20 Sputum Culture - Preliminary, Resulted YEAST 09/28/20 Blood Culture - Preliminary, Resulted No growth 09/28/20 Urine Culture - Final, Complete NO GROWTH Assessment/Plan Assessment/Plan Assessment/Plan 1. S/P Abdominal washout, Wound VAC placement, Exploratory laparotomy with small bowel resection x2. -Continue pain meds -Continue Ice chips, advance diet when pt has BM or flatus -Continue ABX until course is complete -Continue ambulation with PT -Continue IS use -Continue Macias, NG tube, and wound Vac 2. Anemia -Pt stable -HGB decreased to 8.3 today, likely diluted due to received fluid volume -Continue daily CBC labs 3. Leukocytosis -Improved today -Continue ABX OSMIN RAMOS DO 10/02/20 1153: Subjective Time Seen by a Provider: 09:06 Subjective/Events-last exam Pt seen and examined, states pain is mostly controlled. Pt denies flatus or BM Review of Systems General: No Chills; Malaise HEENT: No Head Aches, No Visual Changes Pulmonary: No Dyspnea, No Pleuritic Chest Pain Cardiovascular: No: Chest Pain Gastrointestinal: Abdominal Pain; No: Nausea, Vomiting Genitourinary: No Dysuria Objective Exam General Appearance: No Apparent Distress Respiratory: Lungs Clear, Normal Breath Sounds, No Accessory Muscle Use, No Respiratory Distress Cardiovascular: Regular Rate, Rhythm, No Murmur Gastrointestinal: soft, distended (Slightly softer abdomen than yesterday, distention about the same), tenderness, other (dressing/wound vac in place, no leaking) Assessment/Plan Assessment/Plan Assessment/Plan 1. S/P Abdominal washout, Wound VAC placement, Exploratory laparotomy with small bowel resection x2. -pain meds, clamp NGT and start sips of clears, up with PT 2. Anemia -stable 3. Leukocytosis -Improved today -Continue ABX Supervisory-Addendum Brief Verification & Attestation Participated in pt care: history, MDM, physical Personally performed: exam, history, MDM Care discussed with: Medical Student Procedures: n/a Verification and Attestation of Medical Student E/M Service A medical student performed and documented this service. I then reviewed and verified all information documented by the medical student and made modifications to such information, when appropriate. I personally performed a physical exam, medical decision making and then discussed any differences between the notes and made revisions as necessary to create one note. Osmin Ramos , 10/02/20 , 11:53 ALICIA BERMAN MED STUDENT Oct 02, 2020 07:58 OSMIN RAMOS DO Oct 02, 2020 11:53
--- NOTE | 2020-10-02 08:18 | Progress Note - Hospitalist ---
JOJO GRIFFIN MED STUDENT 10/02/20 0818: Subjective HPI/CC On Admission Date Seen by Provider: Oct 02, 2020 Time Seen by Provider: 08:05 Fwup wound dehiscence with fistula, S/P right colon resection for colon cancer, bowel resection for bowel obstruction, septic shock. Subjective/Events-last exam Pt alert in bed resting comfortably with at bedside. Denies shortness of breath, any recent BM and flatus. No longer requiring pressors for blood pressure. New cough appreciated today - sputum shows yeast, Eraxis added. Cardiology consulted yesterday and added IV BB as tolerated for sinus tach. Focused Exam Time of Focused Exam: 17:49 Objective Exam Vital Signs Vital Signs Date Time Temp Pulse Resp B/P (MAP) Pulse Ox O2 Delivery O2 Flow Rate FiO2 10/02/20 06:54 92 Nasal Cannula 5.00 10/02/20 06:00 37.4 94 18 147/47 (80) 10/01/20 03:49 30 Capillary Refill : Less Than 3 SecondsLess Than 3 Seconds General Appearance: No Apparent Distress Respiratory: Chest Non Tender, No Accessory Muscle Use, No Respiratory Distress, Decreased Breath Sounds Cardiovascular: Regular Rate, Rhythm, No JVD, Normal Peripheral Pulses Gastrointestinal: No Distended; Tenderness (increased wound pain while coughing), Other (wound vac in place draining serosanguinous fluid, no erythema noted around circumference of wound. NGT in place.) Extremity: Normal Capillary Refill, No Calf Tenderness Neurologic/Psychiatric: Alert, Normal Mood/Affect Results/Procedures Lab Laboratory Tests 10/02/20 02:49 Patient resulted labs reviewed. Assessment/Plan Assessment and Plan Assess & Plan/Chief Complaint 1. Severe Septic Shock due to Wound Dehiscence with fistula from recent right sided colectomy for colon cancer--S/P Exp Lap with bowel obstruction and bowel resection x2--back to surgery 2 days ago for abdominal cleanout and wound vac placement-- wound vac in place, IV abx, d/c 2 pressors, gut rest with TPN, pulmonology consulted 2. Hypertension w/ tachycardia--cardiology consulted; IV BB added 3. DMII--on accuchecks with SSI per ICU protocol 4. COPD--on duoneb routinely 5. PNA--Eraxis added; sputum revealed fungal growth YENI RUVALCABA S DO 10/02/20 0844: Subjective HPI/CC On Admission Time Seen by Provider: 08:42 Objective Exam General Appearance: Mild Distress Respiratory: Lungs Clear, Decreased Breath Sounds Cardiovascular: Regular Rate, Rhythm, Systolic Murmur Gastrointestinal: Other (wound vac in place draining serosanguinous fluid, no erythema noted around circumference of wound. NGT in place.) Extremity: Non Tender, No Calf Tenderness, No Pedal Edema Neurologic/Psychiatric: Alert, Oriented x3 Assessment/Plan Assessment and Plan Critical Care: Critically Ill Patient Supervisory-Addendum Brief Verification & Attestation Participated in pt care: history, physical Personally performed: exam, history Care discussed with: Medical Student Procedures: n/a Patient seen and agree with above treatment plan. Will give lasix today x1 as well. JOJO GRIFFIN MED STUDENT Oct 02, 2020 08:18 YENI RUVALCABA DO Oct 02, 2020 08:44
[2020-10-02] MEDS: PANTOPRAZOLE 40 MG (PROTONIX) VIAL IV SCH (08:23)
[2020-10-02] MEDS: ENOXAPARIN 40 MG/0.4 ML (LOVENOX) SYR SC SCH (08:23)
[2020-10-02] MEDS ORDERED: FUROSEMIDE 40 MG/4 ML INJ (LASIX) IVP NR (08:45)
--- NOTE | 2020-10-02 08:54 | Progress Note - Cardiology ---
Cardiology SOAP Progress Note Subjective: Sitting up in bed Occ cough No c/o CP Mod SOB C/O abd pain Objective: I&O/Vital Signs 10/01/20 10/01/20 10/01/20 10/01/20 21:00 21:18 21:40 22:00 Temp 37.6 37.7 Pulse 100 106 Resp 11 14 B/P (MAP) 117/44 (68) 104/47 (66) Pulse Ox 91 90 90 O2 Delivery Nasal Cannula Nasal Cannula Nasal Cannula Nasal Cannula O2 Flow Rate 2.00 4.00 5.00 5.00 10/01/20 10/02/20 10/02/20 10/02/20 23:00 00:00 00:00 01:00 Temp 37.7 37.6 37.6 Pulse 105 105 103 Resp 13 11 11 B/P (MAP) 131/50 (77) 125/47 (73) 129/47 (74) Pulse Ox 90 91 89 88 O2 Delivery Nasal Cannula Nasal Cannula Nasal Cannula Nasal Cannula O2 Flow Rate 5.00 5.00 5.00 5.00 10/02/20 10/02/20 10/02/20 10/02/20 01:00 01:55 02:00 03:00 Temp 37.7 37.7 Pulse 109 103 106 Resp 19 B/P (MAP) 145/55 (85) 139/48 (78) Pulse Ox 92 91 88 O2 Delivery Nasal Cannula Nasal Cannula Nasal Cannula O2 Flow Rate 5.00 5.00 5.00 10/02/20 10/02/20 10/02/20 10/02/20 04:00 04:00 05:00 06:00 Temp 37.5 37.5 37.4 Pulse 99 99 94 Resp 16 18 18 B/P (MAP) 148/50 (82) 153/52 (85) 147/47 (80) Pulse Ox 91 88 90 90 O2 Delivery Nasal Cannula Nasal Cannula Nasal Cannula Nasal Cannula O2 Flow Rate 5.00 5.00 5.00 5.00 10/02/20 10/02/20 06:54 07:00 Pulse 98 Pulse Ox 92 O2 Delivery Nasal Cannula O2 Flow Rate 5.00 10/02/20 00:00 Intake Total 2150 ml Output Total 925 ml Balance 1225 ml Weight (Pounds): 238 Weight (Ounces): 5.0 Weight (Calculated Kilograms): 107.796403 Constitutional: AAO x 3 (oriented to self and place ) Respiratory: other (fair air entry; poor inspiratory effort) Cardiovascular: No JVD; tachycardia, S1 and S2 Gastrointestional: other (not palpated d/t recent surgery and wound vac in place; NG tube in place) Extremities: other (mod bilat LE swelling) Neurologic/Psychiatric: grossly intact (moving extremities) Skin: pallor; No rash on exposed areas, No ulcerations on exposed areas Results/Procedures: Labs Laboratory Tests 10/01/20 11:15: Glucometer 95 10/01/20 18:37: Glucometer 99 10/02/20 01:08: Glucometer 105 10/02/20 02:49: White Blood Count 13.3H, Red Blood Count 3.37L, Hemoglobin 8.3L, Hematocrit 27L, Mean Corpuscular Volume 81, Mean Corpuscular Hemoglobin 25, Mean Corpuscular Hemoglobin Concent 30L, Red Cell Distribution Width 15.9H, Platelet Count 302, Mean Platelet Volume 9.5, Immature Granulocyte % (Auto) 2, Neutrophils (%) (Auto) 83H, Lymphocytes (%) (Auto) 6L, Monocytes (%) (Auto) 9, Eosinophils (%) (Auto) 1, Basophils (%) (Auto) 0, Neutrophils # (Auto) 11.0H, Lymphocytes # (Auto) 0.8L, Monocytes # (Auto) 1.2H, Eosinophils # (Auto) 0.1, Basophils # (Au to) 0.0, Immature Granulocyte # (Auto) 0.2H, Sodium Level 139, Potassium Level 4.1, Chloride Level 107, Carbon Dioxide Level 22, Anion Gap 10, Blood Urea Nitrogen 16, Creatinine 1.31H, Estimat Glomerular Filtration Rate 55, BUN/Creatinine Ratio 12, Glucose Level 105, Calcium Level 7.9L, Phosphorus Level 2.7, Magnesium Level 1.6 Microbiology 09/30/20 Gram Stain - Final, Resulted 09/30/20 Sputum Culture - Preliminary, Resulted YEAST 09/28/20 Blood Culture - Preliminary, Resulted No growth 09/28/20 Urine Culture - Final, Complete NO GROWTH Laboratory Tests 09/30/20 15:45 10/01/20 03:30 10/02/20 02:49 Procedures NAME: MARIA D [facility] REC#: [id number] PT STATUS: ADM IN : 1955 PHYSICIAN: BEBE MARTIN DO ADMIT DATE: 09/28/20/ICU Signed Date of Exam:10/02/20 CHEST 1 VIEW, AP/PA ONLY EXAMINATION: Chest radiograph, portable AP view. DATE: 10/02/2020 2:42 AM INDICATION: 64-year-old male, status post exploratory laparoscopy. COMPARISON: October 01, 2020. FINDINGS: There are bilateral shoulder prostheses. There are median sternotomy wires. The nasogastric tube is in the stomach. Stable overall appearance of the cardiomediastinal silhouette. The previously noted endotracheal tube has been removed. There is a left-sided venous line with tip near the level of the cavoatrial junction. There is obscuration of visualization of left hemidiaphragm and blunting of the left lateral costophrenic angle. There are bilateral interstitial and/or alveolar opacities. IMPRESSION: 1. Multifocal bilateral interstitial and/or alveolar opacities which appear increased since the comparison exam. This could reflect edema, multifocal pneumonia, or other alveolar consolidative process. 2. Probable left pleural effusion. 3. Support lines and tubes as above. Dictated by: Dictated on workstation # [id number] Dict: 10/02/20715 Trans: 10/02/20750 [facility] [id number] Interpreted by: MIKEL AVERY MD Electronically signed by: MIKEL AVERY MD 10/02/20 0751 A/P: Assessment: Wound dehiscence with fistula - wound vac placed - management per Dr. Martin Sepsis - management per Medical services S/P right colon resection for colon cancer Sinus tachycardia - improved with BB tx Post op anemia - management per medical/surgical services Coronary artery disease, history of CABG x3 done in 2007. - Last cardiac catheterization was done on July 11, [address] Golden showing patent stent in the proximal LAD, small vessel disease distally, known occluded ZELAYA, patent vein graft to diagonal artery with good flow distally, patent vein graft to the right coronary artery with good flow distally, 50 percent ostial proximal left main stenosis, nondominant circumflex artery. COPD Obstructive sleep apnea, maintained on C Pap H/o an episode of confusion with right sided weakness, had episode of tingling in his fingers and dizziness after micturition probably vasovagal episode, questionable history of TIA. Labile hypertension History of orthostatic hypotension Hyperlipidemia - unable to tolerate statin dose any higher than 5mg Diabetes mellitus Carotid stenosis, mild nonobstructive disease bilaterally. Most recent carotid duplex done in February 2018, I will evaluate carotid ultrasound History of chronic compensated left ventricular diastolic dysfunction, echocardiogram done in April 2019 showing ejection fraction 50-55 percent, grade 2 diastolic dysfunction, left atrium 4.6 cm, aortic valve trivial regurgitation, PA pressure 35-40 mmHg. Continue to monitor History of tobaccoism, patient has been abstinent from smoking since 2007. History of parathyroidectomy done in in November 2018. Plan: Complex management issue with multiple medical issues as noted above Sinus tachycardia - add BB, IV (d/t NPO status) titrate as tolerated Monitor lab closely replace electrolytes as indicated Post surgical anemia - management per medical/surgical services KVNG FRIEND Oct 02, 2020 08:54
--- NOTE | 2020-10-02 10:32 | Physical Therapy Daily Note ---
PT Daily Note-Current Subjective Pt supine in bed with present in room, agreeable to complete supine leg exercises this date. He reports he has pain in his abdomen, but does not rate pain levels. Pt grimacing with coughing. Appearance Following session, pt remained supine in bed with present in room, call light and tray within reach. All needs met at this time. Mental Status Patient Orientation: Person Attachments: NG Tube, Oxygen, Macias Catheter, IV Transfers SCALE: Activities may be completed with or without assistive devices. 1-Nbgjxegzsa-jtdlnpx completes the activity by him/herself with no assistance from a helper. 5-Set-up or Clean-up Assistance-helper sets up or cleans up; patient completes activity. [place] assists only prior to or following the activity. 4-Supervision or Touching Assistance-helper provides verbal cues and/or touching/steadying and/or contact guard assistance as patient completes activity. Assistance may be provided throughout the activity or intermittently. 3-Partial/Moderate Assistance-helper does LESS THAN HALF the effort. [place] lifts, holds or supports trunk or limbs, but provides less than half the effort. 2-Substantial/Maximal Assistance-helper does MORE THAN HALF the effort. [place] lifts or holds trunk or limbs and provides more than half the effort. 8-Dlrnvehtm-yyrbvb does ALL the effort. Patient does none of the effort to complete the activity. Or, the assistance of 2 or more helpers is required for the patient to complete the activity. If activity was not attempted, code reason: 7-Patient Refused. 9-Not Applicable-not attempted and the patient did not perform the activity before the current illness, exacerbation or injury. 10-Not Attempted due to Environmental Limitations-(lack of equipment, weather restraints, etc.). 88-Not Attempted due to Medical Conditions or Safety Concerns. Exercises Supine Ex: Ankle pumps, Quad Set, Glut sets, Heel Slides, Straight leg raise Supine Reps: 10 Assessment Current Status: Fair Progress Pt educated on how to cough while bracing pillow on abdomen to assist with pain levels when coughing. Pt continues to have pain with LE exercises as well as coughing. Will continue to progress pt as he tolerates. PT Chcf Goals Chcf Goals PT Furnace Setter Goals Time Frame: Oct 08, 2020 Roll Left & Right (QC): 3 Sit to Lying (QC): 3 Lying-Sitting on Side/Bed(QC): 3 Sit to Stand (QC): 3 Chair/Ogc-ik-Vwpvt Xfer(QC): 3 Walk 10 feet (QC): 3 PT Plan Problem List Problem List: Activity Tolerance, Functional Strength, Safety, Balance, Gait, Transfer, Bed Mobility, ROM Treatment/Plan Treatment Plan: Continue Plan of Care Treatment Plan: Bed Mobility, Education, Functional Activity Jossy, Functional Strength, Gait, Safety, Therapeutic Exercise, Transfers Treatment Duration: Oct 08, 2020 Frequency: 6 times per week Estimated Hrs Per Day: .25 hour per day Patient and/or Family Agrees t: Yes Time/GCodes Time In: 915 Time Out: 927 Total Billed Treatment Time: 12 Total Billed Treatment 1 visit EX (12') LAYNE ELLISON PT Oct 02, 2020 10:32
--- NOTE | 2020-10-02 16:41 | Progress Note - Cardiology ---
Cardiology SOAP Progress Note Subjective: No cp or palp or syncope or groin discomfort No shortness of breath at rest Some gen malaise No n/v/d Objective: I&O/Vital Signs 10/02/20 10/02/20 10/02/20 10/02/20 05:00 06:00 06:54 07:00 Temp 37.5 37.4 37.4 Pulse 99 94 96 Resp 18 18 8 B/P (MAP) 153/52 (85) 147/47 (80) 161/53 (89) Pulse Ox 90 90 92 91 O2 Delivery Nasal Cannula Nasal Cannula Nasal Cannula Nasal Cannula O2 Flow Rate 5.00 5.00 5.00 5.00 10/02/20 10/02/20 10/02/20 10/02/20 07:00 08:00 08:00 09:00 Temp 37.4 37.4 Pulse 98 99 98 Resp 35 27 B/P (MAP) 157/61 (93) 165/59 (94) Pulse Ox 91 91 88 O2 Delivery Nasal Cannula Nasal Cannula Nasal Cannula O2 Flow Rate 5.00 5.00 5.00 10/02/20 10/02/20 10/02/20 10/02/20 10:00 10:38 10:45 11:00 Temp 37.4 37.4 Pulse 101 Resp 23 11 B/P (MAP) 149/58 (88) 128/50 (76) Pulse Ox 86 98 94 O2 Delivery Nasal Cannula Nasal Cannula Nasal Cannula Nasal Cannula O2 Flow Rate 5.00 3.00 3.00 3.00 10/02/20 10/02/20 10/02/20 10/02/20 11:42 12:00 13:00 13:00 Temp 37.4 37.4 Pulse 101 Resp 17 17 B/P (MAP) 157/52 (87) 164/55 (91) Pulse Ox 95 93 91 O2 Delivery Nasal Cannula Nasal Cannula Nasal Cannula O2 Flow Rate 3.00 3.00 3.00 10/02/20 10/02/20 10/02/20 10/02/20 14:00 14:11 14:45 15:00 Temp 37.4 37.3 Resp 13 18 B/P (MAP) 72/48 (56) 137/49 (78) Pulse Ox 100 100 99 O2 Delivery Nasal Cannula Nasal Cannula Nasal Cannula Nasal Cannula O2 Flow Rate 3.00 1.00 1.00 1.00 10/02/20 16:00 Pulse Ox 95 O2 Delivery Nasal Cannula O2 Flow Rate 1.00 10/01/20 23:59 Intake Total 2150 ml Output Total 925 ml Balance 1225 ml Weight (Pounds): 238 Weight (Ounces): 5.0 Weight (Calculated Kilograms): 107.927038 Constitutional: AAO x 3 (oriented to self and place ) Respiratory: other (fair air entry; poor inspiratory effort) Cardiovascular: No JVD; tachycardia, S1 and S2 Gastrointestional: other (not palpated d/t recent surgery and wound vac in place; NG tube in place) Extremities: other (mod bilat LE swelling) Neurologic/Psychiatric: grossly intact (moving extremities) Skin: pallor; No rash on exposed areas, No ulcerations on exposed areas Results/Procedures: Labs Laboratory Tests 10/01/20 18:37: Glucometer 99 10/02/20 01:08: Glucometer 105 10/02/20 02:49: White Blood Count 13.3H, Red Blood Count 3.37L, Hemoglobin 8.3L, Hematocrit 27L, Mean Corpuscular Volume 81, Mean Corpuscular Hemoglobin 25, Mean Corpuscular Hemoglobin Concent 30L, Red Cell Distribution Width 15.9H, Platelet Count 302, M sadaf Platelet Volume 9.5, Immature Granulocyte % (Auto) 2, Neutrophils (%) (Auto) 83H, Lymphocytes (%) (Auto) 6L, Monocytes (%) (Auto) 9, Eosinophils (%) (Auto) 1, Basophils (%) (Auto) 0, Neutrophils # (Auto) 11.0H, Lymphocytes # (Auto) 0.8L , Monocytes # (Auto) 1.2H, Eosinophils # (Auto) 0.1, Basophils # (Auto) 0.0, Immature Granulocyte # (Auto) 0.2H, Sodium Level 139, Potassium Level 4.1, Chloride Level 107, Carbon Dioxide Level 22, Anion Gap 10, Blood Urea Nitrogen 16, Creatinine 1.31H, Estimat Glomerular Filtration Rate 55, BUN/Creatinine Ratio 12, Glucose Level 105, Calcium Level 7.9L, Phosphorus Level 2.7, Magnesium Level 1.6 10/02/20 11:19: Glucometer 141H Microbiology 09/30/20 Gram Stain - Final, Complete 09/30/20 Sputum Culture - Final, Complete YEAST 09/28/20 Blood Culture - Preliminary, Resulted No growth 09/28/20 Urine Culture - Final, Complete NO GROWTH A/P: Assessment: Wound dehiscence with fistula - wound vac placed - management per Dr. Ramos Sepsis - management per Medical services S/P right colon resection for colon cancer Sinus tachycardia - improved with BB tx Post op anemia - management per medical/surgical services Coronary artery disease, history of CABG x3 done in 2007. - Last cardiac catheterization was done on July 11, [address] Golden showing patent stent in the proximal LAD, small vessel disease distally, known occluded ZELAYA, patent vein graft to diagonal artery with good flow distally, patent vein graft to the right coronary artery with good flow distally, 50 percent ostial proximal left main stenosis, nondominant circumflex artery. COPD Obstructive sleep apnea, maintained on C Pap H/o an episode of confusion with right sided weakness, had episode of tingling in his fingers and dizziness after micturition probably vasovagal episode, questionable history of TIA. Labile hypertension History of orthostatic hypotension Hyperlipidemia - unable to tolerate statin dose any higher than 5mg Diabetes mellitus Carotid stenosis, mild nonobstructive disease bilaterally. Most recent carotid duplex done in February 2018, I will evaluate carotid ultrasound History of chronic compensated left ventricular diastolic dysfunction, echocardiogram done in April 2019 showing ejection fraction 50-55 percent, grade 2 diastolic dysfunction, left atrium 4.6 cm, aortic valve trivial regurgitation, PA pressure 35-40 mmHg. Continue to monitor History of tobaccoism, patient has been abstinent from smoking since 2007. History of parathyroidectomy done in in November 2018. Plan: I discussed his CV issues with him and his and answered questions Sinus tachycardia - add BB, IV (d/t NPO status) titrate as tolerated Monitor lab closely replace electrolytes as indicated Post surgical anemia - management per Medical and Surgical services HANNAH GARRETT MD FACP FAC CCDS Oct 02, 2020 16:40
[2020-10-03] MEDS: RT-ALBUTEROL/IPRATROPIUM 3 ML (DUONEB) VIAL INH SCH ×6 (01:46→22:09)
[2020-10-03] MEDS: morphine INJ 4 MG/ML 1 ML (VIAL/SYRINGE) IVP PRN ×6 (02:05→20:03)
[2020-10-03 02:33] LABS: BASOPHILS % (AUTO) 0 % (0-10); EOSINOPHILS # (AUTO) 0.1 10^3/uL (0.0-0.3); EOSINOPHILS % (AUTO) 1 % (0-10); HEMATOCRIT 29 % (40-54); HEMOGLOBIN 8.7 g/dL (13.3-17.7); LYMPHOCYTES # (AUTO) 0.8 10^3/uL (1.0-4.0); LYMPHOCYTES % (AUTO) 7 % (12-44); MEAN CORPUSCULAR HEMOGLOBIN 25 pg (25-34); MEAN CORPUSCULAR HGB CONC 31 g/dL (32-36); MEAN CORPUSCULAR VOLUME 80 fL (80-99); MEAN PLATELET VOLUME 9.7 fL (9.0-12.2); MONOCYTES # (AUTO) 0.8 10^3/uL (0.0-1.0); MONOCYTES % (AUTO) 8 % (0-12); NEUTROPHILS # (AUTO) 8.6 10^3/uL (1.8-7.8); NEUTROPHILS % (AUTO) 81 % (42-75); PLATELET COUNT 364 10^3/uL (130-400); WHITE BLOOD COUNT 10.6 10^3/uL (4.3-11.0)
[2020-10-03] MEDS: NOREPINEPHRINE 4 MG/250 ML 250 ML IV SCH ×2 (02:37→08:52)
[2020-10-03 02:49] LABS: POTASSIUM 3.7 MMOL/L (3.6-5.0)
[2020-10-03 02:50] LABS: CALCIUM 8.5 MG/DL (8.5-10.1)
[2020-10-03 02:55] LABS: CREATININE SERUM 1.38 MG/DL (0.60-1.30)
[2020-10-03 02:57] LABS: MAGNESIUM 2.2 MG/DL (1.6-2.4)
[2020-10-03] MEDS: PIPERACILLIN/TAZO 4.5 GM/NS 100 ML IV SCH ×6 (03:24→18:28)
--- NOTE | 2020-10-03 04:11 | Pulmonary Progress Note ---
Subjective Time Seen by a Provider: 04:06 Subjective/Events-last exam Plan is for pt to go back to surgery today. Sepsis Event Evaluation Height, Weight, BMI Height: 5'8.00" Weight: 238lbs. 5.0oz. 107.193873wv; 33.52 BMI Method:Stated Focused Exam Time of Focused Exam: 17:49 Exam Exam Vital Signs Date Time Temp Pulse Resp B/P (MAP) Pulse Ox O2 Delivery O2 Flow Rate FiO2 10/03/20 03:00 38.0 110 20 147/78 (101) 90 Vapotherm 20.00 60.00 10/03/20 02:00 37.8 105 18 90/81 (84) 90 Vapotherm 20.00 60.00 10/03/20 01:46 92 Vapotherm 20.00 60 10/03/20 01:00 37.8 96 17 96/55 (69) 92 Vapotherm 20.00 60.00 10/03/20 01:00 100 10/03/20 00:00 37.7 92 18 103/59 (74) 94 Vapotherm 20.00 60.00 10/03/20 00:00 95 Vapotherm 20.00 60 10/02/20 23:15 Vapotherm 20.00 60.00 10/02/20 23:14 85 Vapotherm 20.00 60 10/02/20 23:00 37.6 104 13 173/57 (95) 87 Nasal Cannula 8.00 10/02/20 22:56 Nasal Cannula 8.00 10/02/20 22:00 Nasal Cannula 5.00 10/02/20 22:00 37.6 103 12 155/49 (84) 88 Nasal Cannula 5.00 10/02/20 21:40 86 Nasal Cannula 3.00 10/02/20 21:00 37.7 97 14 78/50 (59) 91 Nasal Cannula 3.00 10/02/20 20:00 95 Nasal Cannula 5.00 10/02/20 20:00 37.7 98 15 151/51 (84) 89 Nasal Cannula 3.00 10/02/20 19:00 107 10/02/20 19:00 Nasal Cannula 3.00 10/02/20 19:00 37.8 105 20 97/69 (78) 88 Nasal Cannula 3.00 10/02/20 18:23 87 Nasal Cannula 1.00 10/02/20 18:00 37.5 15 117/71 (86) 91 Nasal Cannula 1.00 10/02/20 17:00 37.3 18 104/73 (83) 96 Nasal Cannula 1.00 10/02/20 16:00 37.2 16 107/54 (71) 98 Nasal Cannula 1.00 10/02/20 16:00 95 Nasal Cannula 1.00 10/02/20 15:00 37.3 18 137/49 (78) 99 Nasal Cannula 1.00 10/02/20 14:45 Nasal Cannula 1.00 10/02/20 14:11 100 Nasal Cannula 1.00 10/02/20 14:00 37.4 13 72/48 (56) 100 Nasal Cannula 3.00 10/02/20 13:00 37.4 17 164/55 (91) 91 Nasal Cannula 3.00 10/02/20 13:00 101 10/02/20 12:00 37.4 17 157/52 (87) 93 Nasal Cannula 3.00 10/02/20 11:42 95 Nasal Cannula 3.00 10/02/20 11:00 37.4 11 128/50 (76) 94 Nasal Cannula 3.00 10/02/20 10:45 Nasal Cannula 3.00 10/02/20 10:38 98 Nasal Cannula 3.00 10/02/20 10:00 37.4 101 23 149/58 (88) 86 Nasal Cannula 5.00 10/02/20 09:00 37.4 98 27 165/59 (94) 88 Nasal Cannula 5.00 10/02/20 08:00 37.4 99 35 157/61 (93) 91 Nasal Cannula 5.00 10/02/20 08:00 91 Nasal Cannula 5.00 10/02/20 07:00 98 10/02/20 07:00 37.4 96 8 161/53 (89) 91 Nasal Cannula 5.00 10/02/20 06:54 92 Nasal Cannula 5.00 10/02/20 06:00 37.4 94 18 147/47 (80) 90 Nasal Cannula 5.00 10/02/20 05:00 37.5 99 18 153/52 (85) 90 Nasal Cannula 5.00 I & O 10/03/20 07:00 Intake Total 1100 ml Output Total 5625 ml Balance -4525 ml Height & Weight Height: 5'8.00" Weight: 238lbs. 5.0oz. 107.625002kc; 33.52 BMI Method:Stated General Appearance: No Apparent Distress Respiratory: Lungs Clear, Normal Breath Sounds, No Accessory Muscle Use, No Respiratory Distress Cardiovascular: Regular Rate, Rhythm, No Murmur Capillary Refill: Less Than 3 Seconds Peripheral Pulses: 2+ Radial Pulses (R), 2+ Radial Pulses (L) Gastrointestinal: soft, distended (Slightly softer abdomen than yesterday, distention about the same), tenderness, other (dressing/wound vac in place, no leaking) Extremity: Non Tender, No Calf Tenderness, No Pedal Edema Neurologic/Psychiatric: Alert, Oriented x3 Skin: Normal Color, Warm/Dry Results Lab Laboratory Tests 10/02/20 02:49 10/03/20 02:30 Assessment/Plan Assessment/Plan Acute respiratory failure s/p surgery -Currently on Vapotherm 60% - probably secondary to pulmonary edema and atelectasis. IVF are hep locked. -Plan is for pt to go back to surgery today. Will hold off on giving lasix for now. -Improving leukocytosis -IS -s/p extubation PNA- present on admission -Sputum shows yeast -Continue Eraxis -Decrease IVF to 75ml/hr -Continue Zosyn -MRSA swab is negative -Boogie cultures negative thus far and sputum is pending -Improving Leukocytosis s/p multiple surgeries secondary to complications. -Boogie cultures pending Hyperglycemia -improving -Continue SSI Wound Dehiscence with fistula from recent right sided colectomy for colon cancer--S/P Exp Lap with bowel obstruction and bowel resection x2--followed by repeat abdominal surgical cleanout and wound vac placement S/P recent right hemicolectomy for right sided colon cancer 09/20 Hx of hypothyroid - Synthroid IV Acute renal failure - improving - IVF Malnutrition -Diet per surgery COPD hx - SVNS DMII -Monitor -SSI RACHEL HANKINS DO Oct 03, 2020 04:11
[2020-10-03] MEDS: LEVOTHYROXINE 100 MCG INJ (SYNTHROID) VIAL IV SCH (05:30)
[2020-10-03] MEDS: inSUlin ASPART (NovoLOG) 1 UNIT/0.01 ML (CHARGE PER UNIT) SC SCH ×3 (05:32→18:26)
[2020-10-03] MEDS: meTOprolol 5 MG/5 ML (LOPRESSOR) VIAL IV SCH ×3 (05:32→18:28)
--- NOTE | 2020-10-03 07:13 | Diagnostic Imaging Report ---
INDICATION: Small bowel obstruction. Comparison made with prior examination 10/02/2020. FINDINGS: Heart size is normal. Some venous congestion. There has been previous median sternotomy and carotid bypass graft. There are patchy bibasilar infiltrates and small bilateral pleural effusions. There is no pneumothorax. The lines and tubes are in satisfactory position. IMPRESSION: Patchy bibasilar pulmonary infiltrates and small bilateral pleural effusions. Mild central pulmonary venous congestion. Dictated by: Dictated on workstation # [id number]
--- NOTE | 2020-10-03 08:13 | Progress Note - Surgery ---
VONDA BERMANK MED STUDENT 10/03/20 0813: Subjective Date Seen by a Provider: Oct 03, 2020 Time Seen by a Provider: 06:45 Subjective/Events-last exam Pt is awake and alert lying in bed this morning. He appears less fatigued than yesterday. States that his pain is getting quite a bit better but is still sore. States his pain meds are helping. states that he has had some chicken broth, jello and some other clear liquids, but patient doesn't remember when questioning. states that his confusion is about the same, he appears to see things that aren't there. He denies any nausea, vomiting, or trouble swallowing with foods. He has not passed gas or had a BM yet. Pysical therapy has moved him a bit and he states that goes well. Using IS. His wound vac is at about 400mL. NG tube not connected, container about 1050mL. Bryant still in place. He appears to be less swollen than yesterday as well. Review of Systems General: No Chills HEENT: No Head Aches, No Visual Changes, No Ear Pain Pulmonary: No Dyspnea; Cough Cardiovascular: No: Chest Pain, Palpitations Gastrointestinal: Abdominal Pain; No: Nausea, Vomiting, Diarrhea, Hematochezia Genitourinary: No Dysuria, No Hematuria Musculoskeletal: No: leg pain Neurological: Confusion ( states pt appears confused) Focused Exam Time of Focused Exam: 17:49 Objective Exam Vital Signs Date Time Temp Pulse Resp B/P (MAP) Pulse Ox O2 Delivery O2 Flow Rate FiO2 10/03/20 08:00 37.5 99 12 158/77 (104) 94 Vapotherm 20.00 60.00 10/03/20 07:00 101 10/03/20 07:00 37.6 98 19 153/85 (107) 95 Vapotherm 20.00 60.00 10/03/20 06:50 93 Vapotherm 20.00 60 10/03/20 06:00 37.7 102 15 166/89 (114) 93 Vapotherm 20.00 60.00 10/03/20 05:00 37.7 101 17 125/69 (87) 92 Vapotherm 20.00 60.00 10/03/20 04:00 37.8 98 24 142/80 (100) 94 Vapotherm 20.00 60.00 3/12/21 04:00 95 Vapotherm 20.00 60 10/03/20 03:00 38.0 110 20 147/78 (101) 90 Vapotherm 20.00 60.00 10/03/20 02:00 37.8 105 18 90/81 (84) 90 Vapotherm 20.00 60.00 10/03/20 01:46 92 Vapotherm 20.00 60 10/03/20 01:00 37.8 96 17 96/55 (69) 92 Vapotherm 20.00 60.00 10/03/20 01:00 100 10/03/20 00:00 37.7 92 18 103/59 (74) 94 Vapotherm 20.00 60.00 10/03/20 00:00 95 Vapotherm 20.00 60 10/02/20 23:15 Vapotherm 20.00 60.00 10/02/20 23:14 85 Vapotherm 20.00 60 10/02/20 23:00 37.6 104 13 173/57 (95) 87 Nasal Cannula 8.00 10/02/20 22:56 Nasal Cannula 8.00 10/02/20 22:00 Nasal Cannula 5.00 10/02/20 22:00 37.6 103 12 155/49 (84) 88 Nasal Cannula 5.00 10/02/20 21:40 86 Nasal Cannula 3.00 10/02/20 21:00 37.7 97 14 78/50 (59) 91 Nasal Cannula 3.00 10/02/20 20:00 95 Nasal Cannula 5.00 10/02/20 20:00 37.7 98 15 151/51 (84) 89 Nasal Cannula 3.00 10/02/20 19:00 107 10/02/20 19:00 Nasal Cannula 3.00 10/02/20 19:00 37.8 105 20 97/69 (78) 88 Nasal Cannula 3.00 10/02/20 18:23 87 Nasal Cannula 1.00 10/02/20 18:00 37.5 15 117/71 (86) 91 Nasal Cannula 1.00 10/02/20 17:00 37.3 18 104/73 (83) 96 Nasal Cannula 1.00 10/02/20 16:00 37.2 16 107/54 (71) 98 Nasal Cannula 1.00 10/02/20 16:00 95 Nasal Cannula 1.00 10/02/20 15:00 37.3 18 137/49 (78) 99 Nasal Cannula 1.00 10/02/20 14:45 Nasal Cannula 1.00 10/02/20 14:11 100 Nasal Cannula 1.00 10/02/20 14:00 37.4 13 72/48 (56) 100 Nasal Cannula 3.00 10/02/20 13:00 37.4 17 164/55 (91) 91 Nasal Cannula 3.00 10/02/20 13:00 101 10/02/20 12:00 37.4 17 157/52 (87) 93 Nasal Cannula 3.00 10/02/20 11:42 95 Nasal Cannula 3.00 10/02/20 11:00 37.4 11 128/50 (76) 94 Nasal Cannula 3.00 10/02/20 10:45 Nasal Cannula 3.00 10/02/20 10:38 98 Nasal Cannula 3.00 10/02/20 10:00 37.4 101 23 149/58 (88) 86 Nasal Cannula 5.00 10/02/20 09:00 37.4 98 27 165/59 (94) 88 Nasal Cannula 5.00 I & O 10/03/20 07:00 Intake Total 1150 ml Output Total 5950 ml Balance -4800 ml Capillary Refill : Less Than 3 SecondsLess Than 3 Seconds General Appearance: No Apparent Distress Respiratory: Lungs Clear, Normal Breath Sounds, No Accessory Muscle Use, No Respiratory Distress Cardiovascular: Regular Rate, Rhythm, No Murmur Peripheral Pulses: 2+ Radial Pulses (R), 2+ Radial Pulses (L) Gastrointestinal: soft, distended (Softer than yesterday, distention improved as well. ), tenderness, other (dressing/wound vac in place, no leaking) Extremity: Non Tender, No Calf Tenderness, No Pedal Edema Neurologic/Psychiatric: Alert, Oriented x3 Skin: Normal Color, Warm/Dry Results Lab Laboratory Tests 10/02/20 11:19: Glucometer 141H 10/02/20 16:56: Glucometer 155H 10/02/20 23:57: Glucometer 140H 10/03/20 02:30: White Blood Count 10.6, Red Blood Count 3.55L, Hemoglobin 8.7L, Hematocrit 29L, Mean Corpuscular Volume 80, Mean Corpuscular Hemoglobin 25, Mean Corpuscular Hemoglobin Concent 31L, Red Cell Distribution Width 15.6H, Platelet Count 364, Mean Platelet Volume 9.7, Immature Granulocyte % (Auto) 3, Neutrophils (%) (Auto) 81H, Lymphocytes (%) (Auto) 7L, Monocytes (%) (Auto) 8, Eosinophils (%) (Auto) 1, Basophils (%) (Auto) 0, Neutrophils # (Auto) 8.6H, Lymphocytes # (Auto) 0.8L, Monocytes # (Auto) 0.8, Eosinophils # (Auto) 0.1, Basophils # (Auto) 0.0, Immature Granulocyte # (Auto) 0.3H, Sodium Level 140, Potassium Level 3.7, Chloride Level 101, Carbon Dioxide Level 27, Anion Gap 12, Blood Urea Nitrogen 14, Creatinine 1.38H, Estimat Glomerular Filtration Rate 52, BUN/Creatinine Ratio 10, Glucose Level 138H, Calcium Level 8.5, Phosphorus Level 3.0, Magnesium Level 2.2 Microbiology 09/30/20 Gram Stain - Final, Complete 09/30/20 Sputum Culture - Final, Complete YEAST 09/28/20 Blood Culture - Preliminary, Resulted No growth 09/28/20 Urine Culture - Final, Complete NO GROWTH Assessment/Plan Assessment/Plan Assessment/Plan 1. S/P Abdominal washout, Wound VAC placement, Exploratory laparotomy with small bowel resection x2. -Continue pain meds -Pt still denies BM, advance to soft foods when BM or flatus -Tolerating liquids -Continue ABX until course is complete -Continue ambulation with PT -Continue IS use -Continue Bryant, wound vac. NG tube remain clamped. 2. Anemia -Pt stable -HGB Increased to 8.7 today -Continue daily CBC labs 3. Leukocytosis -Improved today -Continue ABX OSMIN MARTIN DO 10/03/20 1209: Subjective Time Seen by a Provider: 10:07 Subjective/Events-last exam Pt seen and examined, still has moderate pain and no flatus or BM. Pt denies nausea and NGT has been clamped all night. is worried about the fact that he had some hallucinations last night. Review of Systems General: No Chills; Fatigue, Malaise Pulmonary: No Dyspnea; Cough Cardiovascular: No: Chest Pain, Palpitations Gastrointestinal: Abdominal Pain; No: Nausea, Vomiting, Diarrhea Neurological: Confusion ( states pt thought he saw dogs in the hallway, but when asked could say his name and the month) Objective Exam General Appearance: No Apparent Distress, Obese Respiratory: Lungs Clear, Normal Breath Sounds, No Accessory Muscle Use, No Respiratory Distress Cardiovascular: Regular Rate, Rhythm, No Murmur Gastrointestinal: soft, distended (Softer than yesterday, distention improved as well. ), tenderness, other (dressing/wound vac in place, no leaking) Extremity: Other (no edema in his hands at all) Neurologic/Psychiatric: Alert Assessment/Plan Assessment/Plan Assessment/Plan 1. S/P Abdominal washout, Wound VAC placement, Exploratory laparotomy with small bowel resection x2. -Pain meds as needed, start clears, continue ABX until course is complete, ambulation with PT and work with OT, encourage IS use -Continue Bryant, wound vac. 2. Anemia - stable 3. Leukocytosis -Improved today I went back after rounds and changed Wound VAC with the Wound care nurse, good beefy red tissue; VAC changed without difficulty but some pain for pt. Also hooked NGT back up to suction and nothing came out, therefore I d/c'd NGT. Plan to change wound VAC Tuesdays and Fridays. Pt is ok to move to floor and will try to get bryant out; pt does have a large amount of penile edema. Supervisory-Addendum Brief Verification & Attestation Participated in pt care: history, MDM, physical Personally performed: exam, history, MDM Care discussed with: Medical Student Procedures: n/a Verification and Attestation of Medical Student E/M Service A medical student performed and documented this service. I then reviewed and verified all information documented by the medical student and made modifications to such information, when appropriate. I personally performed a physical exam, medical decision making and then discussed any differences between the notes and made revisions as necessary to create one note. Osmin Martin , 10/03/20 , 12:10 ALICIA BERMAN MED STUDENT Oct 03, 2020 08:13 OSMIN MARTIN DO Oct 03, 2020 12:09
[2020-10-03] MEDS: LACTATED RINGERS 1,000 ML IV SCH ×2 (08:46→21:45)
[2020-10-03] MEDS: ANIDULAFUNGIN INJECTION 100 MG in NS (IVPB) 100 ML IV SCH (08:47)
[2020-10-03] MEDS: PANTOPRAZOLE 40 MG (PROTONIX) VIAL IV SCH (08:47)
[2020-10-03] MEDS: ENOXAPARIN 40 MG/0.4 ML (LOVENOX) SYR SC SCH (08:47)
--- NOTE | 2020-10-03 09:19 | Progress Note - Hospitalist ---
JOJO GRIFFIN MED STUDENT 10/03/20 0919: Subjective HPI/CC On Admission Date Seen by Provider: Oct 03, 2020 Time Seen by Provider: 09:00 Subjective/Events-last exam Fwup wound dehiscence with fistula, S/P right colon resection for colon cancer, bowel resection for bowel obstruction, septic shock. Pt awake and alert this am sitting comfortably in bed with at bedside. Cough is productive today. WBC count has normalized and hbg is stable. Pain well controlled. Denies BM and flatus but tolerating liquid diet well. Focused Exam Time of Focused Exam: 17:49 Objective Exam Vital Signs Vital Signs Date Time Temp Pulse Resp B/P (MAP) Pulse Ox O2 Delivery O2 Flow Rate FiO2 10/03/20 09:00 37.6 102 19 159/86 (110) 90 Vapotherm 20.00 60.00 10/03/20 07:45 60 Capillary Refill : Less Than 3 SecondsLess Than 3 Seconds General Appearance: No Apparent Distress, WD/WN Respiratory: Chest Non Tender, No Accessory Muscle Use, No Respiratory Distress, Decreased Breath Sounds Cardiovascular: Regular Rate, Rhythm, No Edema, Normal Peripheral Pulses Gastrointestinal: Non Tender, Abnormal Bowel Sounds (decreased), Other (wound vac placed over incision with minimal erythema around circumference. NGT in place but clamped.) Extremity: Non Tender, No Calf Tenderness, No Pedal Edema Neurologic/Psychiatric: Alert, Oriented x3, Normal Mood/Affect Results/Procedures Lab Laboratory Tests 10/03/20 02:30 Patient resulted labs reviewed. Assessment/Plan Assessment and Plan Assess & Plan/Chief Complaint 1. Severe Septic Shock due to Wound Dehiscence with fistula from recent right sided colectomy for colon cancer--S/P Exp Lap with bowel obstruction and bowel resection x2--back to surgery 2 days ago for abdominal cleanout and wound vac placement-- wound vac in place, IV abx, d/c 2 pressors, liquid diet as tolerated, pulmonology consulted 2. Hypertension w/ tachycardia--cardiology consulted; IV BB added 3. DMII--on accuchecks with SSI per ICU protocol 4. COPD--on duoneb routinely 5. PNA--Eraxis continued, encouraged use of IS YENI RUVALCABA S DO 10/03/20 1011: Objective Exam General Appearance: Mild Distress Respiratory: Decreased Breath Sounds Cardiovascular: Regular Rate, Rhythm, Gallop/S3 Gastrointestinal: Soft, Abnormal Bowel Sounds (decreased) Back: No CVA Tenderness Extremity: Non Tender, No Calf Tenderness, No Pedal Edema Neurologic/Psychiatric: Alert, Oriented x3 Skin: Other (wound vac in place ) Supervisory-Addendum Brief Verification & Attestation Participated in pt care: history, physical Personally performed: exam, history Care discussed with: Medical Student Procedures: n/a Agree with above. Surgery for DC of NG tube. Up to chair. To Med Floor if okay with surgery JOJO GRIFFIN MED STUDENT Oct 03, 2020 09:19 YENI RUVALCABA DO Oct 03, 2020 10:11
[2020-10-03] MEDS ORDERED: FUROSEMIDE 40 MG/4 ML INJ (LASIX) IVP ONE (09:45)
--- NOTE | 2020-10-03 10:13 | Cardiology Progress Note ---
Subjective Date Seen by Provider: Oct 03, 2020 Time Seen by Provider: 10:09 Subjective/Events-last exam Patient is laying down in bed, still having some shortness of breath. Tachycardic. Review of Systems General: No Chills, No Night Sweats; Fatigue, Malaise; No Appetite, No Other HEENT: No Head Aches, No Visual Changes, No Eye Pain, No Ear Pain, No Dysphasia, No Sinus Congestion, No Post Nasal Drip, No Sore Throat, No Other Pulmonary: Dyspnea; No Cough, No Pleuritic Chest Pain, No Other Cardiovascular: No: Chest Pain, Palpitations, Orthopnea, Paroxysmal Noc. Dyspnea, Edema, Lt Headedness, Other Focused Exam Time of Focused Exam: 17:49 Objective-Cardiology Exam Last Set of Vital Signs Vital Signs 10/03/20 10/03/20 10/03/20 07:45 09:00 10:00 Temp 37.5 Pulse 105 Resp 10 B/P (MAP) 159/86 (110) Pulse Ox 94 O2 Delivery Vapotherm O2 Flow Rate 20.00 60.00 FiO2 60 Capillary Refill : Less Than 3 SecondsLess Than 3 Seconds I&O Intake and Output 10/03/20 00:00 Intake Total 2170 ml Output Total 6075 ml Balance -3905 ml Intake Oral 1050 ml IV Total 1120 ml Output Urine Total 6075 ml General: Alert, Oriented X3, Cooperative HEENT: Atraumatic, PERRLA Neck: Supple, No JVD Lungs: Clear to Auscultation, Normal Air Movement Heart: Normal S1, Normal S2, Other (tachycardia) Abdomen: No Tenderness, Other (diminished bowel sounds) Extremities: No Clubbing, No Cyanosis Skin: No Rashes Neuro: Normal Speech, Sensation Intact Psych/Mental Status: Mental Status NL, Mood NL Results Lab Laboratory Tests 10/03/20 02:30 A/P-Cardiology Admission Diagnosis Sinus tachycardia Sepsis Colon cancer Shortness of breath Assessment/Plan Sinus tachycardia, probably secondary to sepsis, started on beta blockers, continue to monitor heart rate Sepsis with septic shock, improving, managed by medical and surgical team 1 DE since with fistula, had a wound VAC placed, managed and followed by Dr. Ramos History of colon cancer status post right colon resection, followed and managed by Dr. Ramos Anemia, continue to monitor H&H Coronary artery disease, history of CABG x3 done in 2007. Last cardiac catheterization was done on July 11, 2017 showing patent stent in the proximal LAD, small vessel disease distally, known occluded ZELAYA, patent vein graft to diagonal artery with good flow distally, patent vein graft to the right coronary artery with good flow distally, 50 percent ostial proximal left main stenosis, nondominant circumflex artery. Conservative management is recommended. Continue to monitor COPD, shortness of breath, followed and managed by Dr. Smith Obstructive sleep apnea, maintained on C Pap H/o an episode of confusion with right sided weakness, had episode of tingling in his fingers and dizziness after micturition probably vasovagal episode, questionable history of TIA. Labile hypertension, monitor blood pressure History of orthostatic hypotension Hyperlipidemia - unable to tolerate statin dose any higher than 5mg, continue to monitor lipids Diabetes mellitus, followed and managed by primary care physician Carotid stenosis, mild nonobstructive disease bilaterally. Continue to monitor History of chronic compensated left ventricular diastolic dysfunction, echocardiogram done in April 2019 showing ejection fraction 50-55 percent, grade 2 diastolic dysfunction, left atrium 4.6 cm, aortic valve trivial regurgitation, PA pressure 35-40 mmHg. Continue to monitor History of tobaccoism, patient has been abstinent from smoking since 2007. History of parathyroidectomy done in in November 2018. NANCY ARREOLA MD Oct 03, 2020 10:13
[2020-10-03] MEDS: POTASSIUM CL 10MEQ/50ML IVPB 50 ML IV SCH ×3 (10:19→11:43)
--- NOTE | 2020-10-03 10:58 | Physical Therapy Daily Note ---
PT Daily Note-Current Subjective Agreeable to PT. Agrees to sit EOB . Post treatment, thanked this therapist for the treatment. Mental Status Patient Orientation: Person, Place, Time, Situation Attachments: NG Tube, SCD's, Oxygen (vapotherm), Drains, Macias Catheter, Other- See Comments (wound vac), IV Transfers SCALE: Activities may be completed with or without assistive devices. 6-Kuvpvtamqc-shgmuod completes the activity by him/herself with no assistance from a helper. 5-Set-up or Clean-up Assistance-helper sets up or cleans up; patient completes activity. [place] assists only prior to or following the activity. 4-Supervision or Touching Assistance-helper provides verbal cues and/or touching/steadying and/or contact guard assistance as patient completes a ctivity. Assistance may be provided throughout the activity or intermittently. 3-Partial/Moderate Assistance-helper does LESS THAN HALF the effort. [place] lifts, holds or supports trunk or limbs, but provides less than half the effort. 2-Substantial/Maximal Assistance-helper does MORE THAN HALF the effort. [place] lifts or holds trunk or limbs and provides more than half the effort. 5-Kusdvftdr-uwyqzc does ALL the effort. Patient does none of the effort to complete the activity. Or, the assistance of 2 or more helpers is required for the patient to complete the activity. If activity was not attempted, code reason: 7-Patient Refused. 9-Not Applicable-not attempted and the patient did not perform the activity before the current illness, exacerbation or injury. 10-Not Attempted due to Environmental Limitations-(lack of equipment, weather restraints, etc.). 88-Not Attempted due to Medical Conditions or Safety Concerns. Roll Left & Right (QC): 2 Sit to Lying (QC): 2 Lying to Sitting/Side of Bed(Q: 2 Sit to Stand (QC): 3 Chair/Fbf-ky-Pzbrv Xfer(QC): 88 max assist with bed mobility due to attachments and abdominal wound vac. Pt able to participate but still needs assist of 2 to complete. Treatments Transitioned to sit EOB and performed sit to stand x 4 reps with min assist to stand and using a FWW. In standing, worked on upright posture and deep breathing; pt able to side step right to move up in bed. Pt in bed post treatment with all needs met. Assessment Current Status: Good Progress Tolerated sitting EOB and standing very well. Pt highly motivated and progressing well. Did not feel he would be able to transfer to the chair and sit up and then have the strength to return to bed later. PT Prison Goals Exhibit Artist Goals PT Prison Goals Time Frame: Oct 08, 2020 Roll Left & Right (QC): 3 Sit to Lying (QC): 3 Lying-Sitting on Side/Bed(QC): 3 Sit to Stand (QC): 3 Chair/[id number]-po-Dhhqf Xfer(QC): 3 Walk 10 feet (QC): 3 PT Plan Problem List Problem List: Activity Tolerance, Functional Strength, Safety, Balance, Gait, Transfer, Bed Mobility Treatment/Plan Treatment Plan: Continue Plan of Care Treatment Plan: Bed Mobility, Education, Functional Activity Jossy, Functional Strength, Gait, Safety, Therapeutic Exercise, Transfers Treatment Duration: Oct 08, 2020 Frequency: 6 times per week Estimated Hrs Per Day: .25 hour per day Patient and/or Family Agrees t: Yes Safety Risks/Education Patient Education: Safety Issues Teaching Recipient: Patient Teaching Methods: Discussion Response to Teaching: Reinforcement Needed Discharge Recommendations Therapy Discharge Recommendati: Post Acute PT Time/GCodes Time In: 955 Time Out: 1033 Total Billed Treatment Time: 38 Total Billed Treatment visit FA 38 YESENIA PARKER PT Oct 03, 2020 10:58
[2020-10-03 12:00] VITALS: BP 162/84
[2020-10-03 16:47] VITALS: BP 134/80
[2020-10-03 19:36] VITALS: BP 161/79
[2020-10-04 00:35] VITALS: BP 168/80
[2020-10-04] MEDS: inSUlin ASPART (NovoLOG) 1 UNIT/0.01 ML (CHARGE PER UNIT) SC SCH ×4 (00:40→17:56)
[2020-10-04] MEDS: meTOprolol 5 MG/5 ML (LOPRESSOR) VIAL IV SCH ×2 (00:41→06:39)
[2020-10-04] MEDS: ONDANSETRON 4 MG/2 ML (SDV) Z0FRAN IVP PRN ×4 (01:13→22:15)
[2020-10-04] MEDS: RT-ALBUTEROL/IPRATROPIUM 3 ML (DUONEB) VIAL INH SCH ×6 (02:16→22:20)
[2020-10-04] MEDS: morphine INJ 4 MG/ML 1 ML (VIAL/SYRINGE) IVP PRN (03:14)
[2020-10-04 04:30] VITALS: BP 158/76
[2020-10-04 07:49] VITALS: BP 162/73
--- NOTE | 2020-10-04 09:07 | Progress Note - Surgery ---
BIBIANA ONEIL MED STUDENT 10/04/20 0907: Subjective Date Seen by a Provider: Oct 04, 2020 Time Seen by a Provider: 08:50 Subjective/Events-last exam Pt. awake lying in bed with at bedside. Reports he's tolerating clear liquids well at this point with minimal nausea, no vomiting. Denies having a BM since last tuesday. States he is not passing gas. Currently rates his abdominal pain around incision at a 6/10 and states its a dull achy pain. States that coughing and moving around worsen the pain. Lying still lessens the pain. Denies subjective fevers or chills. Denies chest pain or SOB. States he's been using his IS regularly. Bryant to dependent drainage, output dark yellow in appearance and clear. Abdominal wound vac in place. States pain meds are helping to control pain. Attempting to walk yesterday, but was only able to sit up at bedside per . Review of Systems General: No Chills, No Night Sweats HEENT: No Head Aches, No Visual Changes Pulmonary: No Dyspnea, No Cough Cardiovascular: No: Chest Pain, Palpitations Gastrointestinal: Nausea; No: Vomiting, Abdominal Pain, Diarrhea Genitourinary: Other (bryant in place) Musculoskeletal: No: neck pain, shoulder pain Neurological: No: Weakness, Numbness Focused Exam Time of Focused Exam: 17:49 Objective Exam Vital Signs Date Time Temp Pulse Resp B/P (MAP) Pulse Ox O2 Delivery O2 Flow Rate FiO2 10/04/20 07:49 36.6 100 20 162/73 (102) 92 High Flow N/C 4.00 10/04/20 07:12 94 Nasal Cannula 4.00 10/04/20 07:00 92 10/04/20 04:30 36.7 95 20 158/76 (103) 94 High Flow N/C 4.00 10/04/20 02:16 93 Nasal Cannula 4.00 10/04/20 01:00 98 10/04/20 00:35 36.5 97 18 168/80 (109) 95 High Flow N/C 4.00 10/03/20 22:09 97 Nasal Cannula 4.00 10/03/20 20:03 High Flow N/C 4.00 10/03/20 19:36 36.4 99 16 161/79 (106) 93 High Flow N/C 10/03/20 19:00 100 10/03/20 18:52 94 Nasal Cannula 4.00 10/03/20 16:47 36.4 98 18 134/80 (98) 93 High Flow N/C 3.50 10/03/20 14:48 97 Nasal Cannula 4.00 10/03/20 14:15 94 High Flow N/C 8.00 10/03/20 12:29 96 10/03/20 12:00 37.4 93 24 155/95 (115) 100 Vapotherm 20.00 60.00 10/03/20 12:00 36.4 94 20 162/84 (110) 94 High Flow N/C 8.00 10/03/20 11:00 37.4 105 23 168/83 (111) 96 Vapotherm 20.00 60.00 10/03/20 10:19 97 Vapotherm 20.00 60 10/03/20 10:00 37.5 105 10 94 Vapotherm 20.00 60.00 I & O 10/04/20 07:00 Intake Total 2390 ml Output Total 2995 ml Balance -605 ml Capillary Refill : Less Than 3 SecondsLess Than 3 Seconds General Appearance: No Apparent Distress, Obese HEENT: PERRL/EOMI, Pharynx Normal Neck: Non Tender, Supple Respiratory: Lungs Clear, Normal Breath Sounds, No Accessory Muscle Use, No Respiratory Distress Cardiovascular: Regular Rate, Rhythm, No Murmur, Normal Peripheral Pulses Peripheral Pulses: 2+ Dorsalis Pedis (R), 2+ Left Dors-Pedis (L), 2+ Radial Pulses (R), 2+ Radial Pulses (L) Gastrointestinal: soft, distended, tenderness, other (dressing/wound vac in pl roselyn, no leaking) Extremity: Normal Capillary Refill, No Calf Tenderness, No Pedal Edema, Other Neurologic/Psychiatric: Alert, Normal Mood/Affect Skin: Warm/Dry, Other (wound vac in place ) Lymphatic: No Adenopathy Results Lab Laboratory Tests 10/03/20 10:38: Glucometer 152H 10/03/20 18:08: Glucometer 153H 10/04/20 00:40: Glucometer 127H 10/04/20 06:33: Glucometer 142H Microbiology 09/30/20 Gram Stain - Final, Complete 09/30/20 Sputum Culture - Final, Complete YEAST 09/28/20 Blood Culture - Final, Complete No growth 09/28/20 Urine Culture - Final, Complete NO GROWTH Assessment/Plan Assessment/Plan Assessment/Plan S/P Abdominal washout, Wound VAC placement, Exploratory laparotomy with small bowel resection x2. Anemia - stable Leukocytosis- Resolved Plan to change wound VAC Tuesdays and Fridays. Continue pain meds, antiemetics, abx coverage DC bryant Encourage frequent IS use and coughing Continue PT and OT Encourage frequent repositioning ALISHA HANSEN DO 10/04/20 1406: Subjective Subjective/Events-last exam Patient pain controlled. Slight nausea. Usin IS some. NO flatus or bm. Denies fever sweats chills shortness of breath or chest pain. Ambulating some. Wound vac in place. Objective Exam General Appearance: No Apparent Distress, Obese HEENT: PERRL/EOMI, Normal ENT Inspection Neck: Full Range of Motion, Non Tender, Supple Respiratory: Chest Non Tender, No Accessory Muscle Use, No Respiratory Distress Cardiovascular: Regular Rate, Rhythm, No JVD Gastrointestinal: distended (minimal\), tenderness (incisional, wound vac in place), other (dressing/wound vac in place, no leaking) Extremity: Non Tender, No Calf Tenderness Neurologic/Psychiatric: Alert, Oriented x3, Normal Mood/Affect Skin: Normal Color, Warm/Dry Lymphatic: No Adenopathy Assessment/Plan Assessment/Plan Assessment/Plan S/P Extended Right hemicolectomy with partial Omentectomy Manual Decompression of small bowel s/p Abdominal washout, Wound VAC placement, Exploratory laparotomy with small bowel resection x2. Anemia - stable Leukocytosis- Resolved Plan to change wound VAC Tuesdays and Fridays. Continue pain meds, antiemetics, abx coverage DC bryant in am keep for accurate i/o Encourage frequent IS use and coughing Continue PT and OT Encourage frequent repositioning Supervisory-Addendum Brief Verification & Attestation Participated in pt care: history, MDM, physical Personally performed: exam, history, MDM, supervision of care Care discussed with: Medical Student Procedures: n/a Results interpretation: Verified all documentation Verification and Attestation of Medical Student E/M Service A medical student performed and documented this service in my presence. I reviewed and verified all information documented by the medical student and made modifications to such information, when appropriate. I personally performed the physical exam and medical decision making. Alisha Hansen, Oct 04, 2020,14:12 BIBIANA ONEIL MED STUDENT Oct 04, 2020 09:07 ALISHA HANSEN DO Oct 04, 2020 14:06
[2020-10-04] MEDS: ENOXAPARIN 40 MG/0.4 ML (LOVENOX) SYR SC SCH (09:08)
[2020-10-04] MEDS: PANTOPRAZOLE 40 MG (PROTONIX) VIAL IV SCH (09:08)
[2020-10-04] MEDS: ANIDULAFUNGIN INJECTION 100 MG in NS (IVPB) 100 ML IV SCH (09:09)
[2020-10-04] MEDS ORDERED: meTOprolol TARTRATE 25 MG (LOPRESSOR) TABLET PO NR (10:15)
--- NOTE | 2020-10-04 10:36 | Progress Note ---
Subjective Date Seen by a Provider: Oct 04, 2020 Time Seen by a Provider: 10:32 Subjective/Events-last exam Fwup wound dehiscence with fistula, S/P right colon resection for colon cancer, bowel resection for bowel obstruction, septic shock. Sitting up in chair. in room. NG tube out. No flatus or BM yet. Pain controlled. Focused Exam Time of Focused Exam: 17:49 Objective Exam Vital Signs Date Time Temp Pulse Resp B/P (MAP) Pulse Ox O2 Delivery O2 Flow Rate FiO2 10/04/20 10:12 93 Nasal Cannula 3.00 10/04/20 07:49 36.6 100 20 162/73 (102) 92 High Flow N/C 4.00 10/04/20 07:12 94 Nasal Cannula 4.00 10/04/20 07:00 92 10/04/20 04:30 36.7 95 20 158/76 (103) 94 High Flow N/C 4.00 10/04/20 02:16 93 Nasal Cannula 4.00 10/04/20 01:00 98 10/04/20 00:35 36.5 97 18 168/80 (109) 95 High Flow N/C 4.00 10/03/20 22:09 97 Nasal Cannula 4.00 10/03/20 20:03 High Flow N/C 4.00 10/03/20 19:36 36.4 99 16 161/79 (106) 93 High Flow N/C 10/03/20 19:00 100 10/03/20 18:52 94 Nasal Cannula 4.00 10/03/20 16:47 36.4 98 18 134/80 (98) 93 High Flow N/C 3.50 10/03/20 14:48 97 Nasal Cannula 4.00 10/03/20 14:15 94 High Flow N/C 8.00 10/03/20 12:29 96 10/03/20 12:00 37.4 93 24 155/95 (115) 100 Vapotherm 20.00 60.00 10/03/20 12:00 36.4 94 20 162/84 (110) 94 High Flow N/C 8.00 10/03/20 11:00 37.4 105 23 168/83 (111) 96 Vapotherm 20.00 60.00 I & O 10/04/20 07:00 Intake Total 2390 ml Output Total 2995 ml Balance -605 ml Capillary Refill : Less Than 3 SecondsLess Than 3 Seconds General Appearance: No Apparent Distress Respiratory: Lungs Clear, Decreased Breath Sounds Cardiovascular: Regular Rate, Rhythm, Systolic Murmur Gastrointestinal: soft, abnormal bowel sounds, other (wound vac in place/dry/erythema around edges improving) Extremity: Non Tender, No Calf Tenderness, No Pedal Edema Neurologic/Psychiatric: Alert, Oriented x3 Results Lab Laboratory Tests 10/03/20 10:38: Glucometer 152H 10/03/20 18:08: Glucometer 153H 10/04/20 00:40: Glucometer 127H 10/04/20 06:33: Glucometer 142H Microbiology 09/30/20 Gram Stain - Final, Complete 09/30/20 Sputum Culture - Final, Complete YEAST 09/28/20 Blood Culture - Final, Complete No growth 09/28/20 Urine Culture - Final, Complete NO GROWTH Assessment/Plan Assessment/Plan Assess & Plan/Chief Complaint 1. Severe Septic Shock due to Wound Dehiscence with fistula from recent right sided colectomy for colon cancer--S/P Exp Lap with bowel obstruction and bowel resection x2--and subsequent surgery for abdominal cleanout and wound vac placement, wound vac in place, resume zosyn, on eraxis, on clear liquids--advance diet per surgery 2. Hypertension--resume oral metoprolol 3. DMII--on accuchecks with SSI 4. COPD--on duoneb routinely 5. Weakness--PT started Clinical Quality Measures Admission Status Admission Dx 1. Abdominal Wound Dehiscence with Fistula/Incisional Hernia with Incarcerated Bowel--S/P recent right hemicolectomy for right sided colon cancer--Gut rest, IV antibiotics, surgical management 2. Hypertension--monitor and use lopressor prn 3. DMII--accuchecks with SSI 4. COPD--SVNs/inhalers prn YENI RUVALCABA DO Oct 04, 2020 10:36
[2020-10-04] MEDS: LACTATED RINGERS 1,000 ML IV SCH (11:10)
[2020-10-04] MEDS: PIPERACILLIN/TAZOBACTAM (BULK) 4.5 GM in NS (IVPB) 100 ML IV SCH ×2 (11:10→18:19)
--- NOTE | 2020-10-04 11:42 | Physical Therapy Daily Note ---
PT Daily Note-Current Subjective States that he is doing okay. Transfers SCALE: Activities may be completed with or without assistive devices. 2-Ywvkhqwezo-seroajj completes the activity by him/herself with no assistance from a helper. 5-Set-up or Clean-up Assistance-helper sets up or cleans up; patient completes activity. [place] assists only prior to or following the activity. 4-Supervision or Touching Assistance-helper provides verbal cues and/or touching/steadying and/or contact guard assistance as patient completes activity. Assistance may be provided throughout the activity or intermittently. 3-Partial/Moderate Assistance-helper does LESS THAN HALF the effort. [place] lifts, holds or supports trunk or limbs, but provides less than half the effort. 2-Substantial/Maximal Assistance-helper does MORE THAN HALF the effort. [place] lifts or holds trunk or limbs and provides more than half the effort. 9-Lvxccovbm-vuzioy does ALL the effort. Patient does none of the effort to complete the activity. Or, the assistance of 2 or more helpers is required for the patient to complete the activity. If activity was not attempted, code reason: 7-Patient Refused. 9-Not Applicable-not attempted and the patient did not perform the activity before the current illness, exacerbation or injury. 10-Not Attempted due to Environmental Limitations-(lack of equipment, weather restraints, etc.). 88-Not Attempted due to Medical Conditions or Safety Concerns. Sit to Stand (QC): 4 Chair/Hyh-ga-Xmdll Xfer(QC): 4 Toilet Transfer (QC): 4 Gait Training Does the Patient Walk?: Yes Distance: 5' Gait Assistive Device: FWW Assessment Current Status: Good Progress The patient was fatigued prior to treatment secondary to just walking with nursing and sitting on the commode. 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 PT Jail Goals Time Frame: Oct 08, 2020 Roll Left & Right (QC): 3 Sit to Lying (QC): 3 Lying-Sitting on Side/Bed(QC): 3 Sit to Stand (QC): 3 Chair/Oeg-cw-Ooipv Xfer(QC): 3 Walk 10 feet (QC): 3 PT Plan Treatment/Plan Treatment Plan: Continue Plan of Care Treatment Plan: Bed Mobility, Education, Functional Activity Jossy, Functional Strength, Gait, Safety, Therapeutic Exercise, Transfers Treatment Duration: Oct 08, 2020 Frequency: 6 times per week Estimated Hrs Per Day: .25 hour per day Patient and/or Family Agrees t: Yes Time/GCodes Time In: 1125 Time Out: 1135 Total Billed Treatment Time: 10 Total Billed Treatment 1, FA x 10' TONI SANTANA PT Oct 04, 2020 11:42
[2020-10-04 12:15] VITALS: BP 156/84
[2020-10-04] MEDS: HYDROcodone/APAP 7.5 MG/325 MG (LORTAB, LORCET PLUS) TABLET PO PRN ×2 (15:56→20:33)
[2020-10-04 16:19] VITALS: BP 156/84
--- NOTE | 2020-10-04 16:21 | Cardiology Progress Note ---
Subjective Date Seen by Provider: Oct 04, 2020 Time Seen by Provider: 16:19 Subjective/Events-last exam Patient was seen at bedside, sitting comfortable, no new complaint Review of Systems General: No Chills, No Night Sweats; Fatigue; No Malaise, No Appetite, No Other HEENT: No Head Aches, No Visual Changes, No Eye Pain, No Ear Pain, No Dysphasia, No Sinus Congestion, No Post Nasal Drip, No Sore Throat, No Other Pulmonary: No Dyspnea, No Cough, No Pleuritic Chest Pain, No Other Cardiovascular: No: Chest Pain, Palpitations, Orthopnea, Paroxysmal Noc. Dyspnea, Edema, Lt Headedness, Other Focused Exam Time of Focused Exam: 17:49 Objective-Cardiology Exam Last Set of Vital Signs Vital Signs 10/03/20 10/04/20 10/04/20 10/04/20 10:19 12:15 12:48 14:21 Temp 36.6 Pulse 93 Resp 20 B/P (MAP) 156/84 (108) Pulse Ox 92 O2 Delivery Nasal Cannula O2 Flow Rate 3.00 FiO2 60 Capillary Refill : Less Than 3 SecondsLess Than 3 Seconds I&O Intake and Output 10/04/20 00:00 Intake Total 2140 ml Output Total 2900 ml Balance -760 ml Intake Oral 2140 ml Output Urine Total 2900 ml General: Alert, Oriented X3, Cooperative HEENT: Atraumatic, PERRLA Neck: Supple, No JVD Lungs: Clear to Auscultation, Normal Air Movement Heart: Normal S1, Normal S2, Other (tachycardia) Abdomen: No Tenderness, Other (diminished bowel sounds) Extremities: No Clubbing, No Cyanosis Skin: No Rashes Neuro: Normal Speech, Sensation Intact Psych/Mental Status: Mental Status NL, Mood NL Results Lab Laboratory Tests Test 10/03/20 18:08 10/04/20 00:40 10/04/20 06:33 10/04/20 12:42 Range/Units Glucometer 153 H 127 H 142 H 172 H 70-110 MG/DL A/P-Cardiology Admission Diagnosis Sinus tachycardia Sepsis Colon cancer Shortness of breath Assessment/Plan Sinus tachycardia, probably secondary to sepsis, better today, on BB, continue to monitor Sepsis with septic shock, improving, managed by medical and surgical team Wound Dehiscence with fistula, had a wound VAC placed, managed and followed by Dr. Ramos History of colon cancer status post right colon resection, followed and managed by Dr. Ramos Anemia, continue to monitor H&H Coronary artery disease, history of CABG x3 done in 2007. Last cardiac catheterization was done on July 11, 2017 showing patent stent in the proximal LAD, small vessel disease distally, known occluded ZELAYA, patent vein graft to diagonal artery with good flow distally, patent vein graft to the right coronary artery with good flow distally, 50 percent ostial proximal left main stenosis, nondominant circumflex artery. Conservative management is recommended. Continue to monitor COPD, shortness of breath, followed and managed by Dr. Smith Obstructive sleep apnea, maintained on C Pap H/o episode of confusion with right sided weakness, had episode of tingling in his fingers and dizziness after micturition probably vasovagal episode, questionable history of TIA. Labile hypertension, monitor blood pressure History of orthostatic hypotension Hyperlipidemia - unable to tolerate statin dose any higher than 5mg, continue to monitor lipids Diabetes mellitus, followed and managed by primary care physician Carotid stenosis, mild nonobstructive disease bilaterally. Continue to monitor History of chronic compensated left ventricular diastolic dysfunction, echocardiogram done in April 2019 showing ejection fraction 50-55 percent, grade 2 diastolic dysfunction, left atrium 4.6 cm, aortic valve trivial regurgitation, PA pressure 35-40 mmHg. Continue to monitor History of tobaccoism, patient has been abstinent from smoking since 2007. History of parathyroidectomy done in in November 2018. NANCY ARREOLA MD Oct 04, 2020 16:21
[2020-10-04 19:07] VITALS: BP 170/91
[2020-10-04] MEDS: meTOprolol TARTRATE 25 MG (LOPRESSOR) TABLET PO SCH (20:33)
[2020-10-05] VITALS (7 sets, daily range): BP systolic 129–171; BP diastolic 70–87
[2020-10-05] MEDS: inSUlin ASPART (NovoLOG) 1 UNIT/0.01 ML (CHARGE PER UNIT) SC SCH ×5 (00:23→23:36)
[2020-10-05] MEDS: LACTATED RINGERS 1,000 ML IV SCH ×2 (00:31→10:25)
[2020-10-05] MEDS: RT-ALBUTEROL/IPRATROPIUM 3 ML (DUONEB) VIAL INH SCH ×6 (01:12→21:45)
[2020-10-05] MEDS: PIPERACILLIN/TAZOBACTAM (BULK) 4.5 GM in NS (IVPB) 100 ML IV SCH ×3 (03:09→17:34)
[2020-10-05 05:25] LABS: HEMOGLOBIN 8.3 g/dL (13.3-17.7); MEAN PLATELET VOLUME 9.3 fL (9.0-12.2); WHITE BLOOD COUNT 9.7 10^3/uL (4.3-11.0)
[2020-10-05 05:40] LABS: CHLORIDE 100 MMOL/L (98-107)
[2020-10-05 05:41] LABS: POTASSIUM 3.1 MMOL/L (3.6-5.0); SODIUM 141 MMOL/L (135-145)
[2020-10-05 05:42] LABS: CALCIUM 8.4 MG/DL (8.5-10.1); GLUCOSE 107 MG/DL (70-105)
[2020-10-05 05:44] LABS: CARBON DIOXIDE 30 MMOL/L (21-32)
[2020-10-05 05:46] LABS: CREATININE SERUM 1.09 MG/DL (0.60-1.30); GFR ESTIMATED > 60
[2020-10-05 05:47] LABS: BUN/CREATININE RATIO 14
[2020-10-05] MEDS: ANIDULAFUNGIN INJECTION 100 MG in NS (IVPB) 100 ML IV SCH (08:42)
[2020-10-05] MEDS: morphine INJ 4 MG/ML 1 ML (VIAL/SYRINGE) IVP PRN ×3 (08:42→17:39)
[2020-10-05] MEDS: ENOXAPARIN 40 MG/0.4 ML (LOVENOX) SYR SC SCH (08:42)
[2020-10-05] MEDS: PANTOPRAZOLE 40 MG (PROTONIX) VIAL IV SCH (08:42)
[2020-10-05] MEDS: meTOprolol TARTRATE 25 MG (LOPRESSOR) TABLET PO SCH (08:42)
--- NOTE | 2020-10-05 08:42 | Progress Note - Surgery ---
BIBIANA ONEIL MED STUDENT 10/05/20 0842: Subjective Date Seen by a Provider: Oct 05, 2020 Time Seen by a Provider: 08:25 Subjective/Events-last exam Patient reports an episode of vomiting around 2100 last night. States he got nauseated then vomited yellow/brown color fluid x 1 episode. NGT was subsequently ordered and placed after that time. NG to LIS pulling yellow/brown fluid at present. Reports diffuse abdominal pain at a 7/10 currently. Describes the pain as a constant dull achy sensation that worsens with coughing and deep breathing as well as movement. Pain improves with pain meds and lying still. States he's not nauseated at present time. Denies SOB, chest pain, headache, fevers, or chills. States he has voided one time since the bryant catheter was discontinued yesterday. Reports he's not yet passing gas. Pain meds are controlling his pain. Review of Systems General: No Chills, No Night Sweats; Appetite (decreased) HEENT: No Head Aches, No Visual Changes Pulmonary: No Dyspnea, No Cough Cardiovascular: No: Chest Pain, Palpitations, Edema Gastrointestinal: Abdominal Pain (7/10 currently dull achy); No: Nausea, Vomiting, Diarrhea, Constipation Genitourinary: No Dysuria, No Frequency Musculoskeletal: No: neck pain, shoulder pain, back pain, leg pain Neurological: No: Weakness, Numbness Focused Exam Time of Focused Exam: 17:49 Objective Exam Vital Signs Date Time Temp Pulse Resp B/P (MAP) Pulse Ox O2 Delivery O2 Flow Rate FiO2 10/05/20 07:02 95 Nasal Cannula 3.00 10/05/20 07:00 82 10/05/20 04:02 36.6 88 20 162/83 (109) 94 Nasal Cannula 3.00 10/05/20 01:12 96 Nasal Cannula 3.00 10/05/20 00:48 36.5 90 20 160/87 (111) 99 Nasal Cannula 3.00 10/05/20 00:19 86 10/04/20 22:21 95 Nasal Cannula 3.00 10/04/20 20:55 Nasal Cannula 3.00 10/04/20 19:07 36.6 108 20 170/91 (117) 96 High Flow N/C 3.00 10/04/20 19:00 92 10/04/20 18:26 94 Nasal Cannula 3.00 10/04/20 16:19 36.6 98 20 156/84 (108) 93 High Flow N/C 3.00 10/04/20 14:21 92 Nasal Cannula 3.00 10/04/20 12:48 93 10/04/20 12:15 36.6 95 20 156/84 (108) 96 High Flow N/C 4.00 10/04/20 10:12 93 Nasal Cannula 3.00 I & O 10/05/20 07:00 Intake Total 1760 ml Output Total 2360 ml Balance -600 ml Capillary Refill : Less Than 3 SecondsLess Than 3 Seconds General Appearance: No Apparent Distress, Obese HEENT: PERRL/EOMI, Normal ENT Inspection, Pharynx Normal Neck: Full Range of Motion, Non Tender, Supple Respiratory: Chest Non Tender, No Accessory Muscle Use, No Respiratory Distress, Crackles (bibasilar); No Rhonci, No Stridor, No Wheezing Cardiovascular: Regular Rate, Rhythm, No JVD, Normal Peripheral Pulses Peripheral Pulses: 2+ Dorsalis Pedis (R), 2+ Left Dors-Pedis (L), 2+ Radial Pulses (R), 2+ Radial Pulses (L) Gastrointestinal: distended (minimal\about same as yesterday), tenderness (incisional, wound vac in place), other (dressing/wound vac in place, no leaking) Extremity: Normal Capillary Refill, Non Tender, No Calf Tenderness Neurologic/Psychiatric: Alert, Oriented x3, Normal Mood/Affect Skin: Warm/Dry, Other (midline abdominal incision with wound vac in place) Lymphatic: No Adenopathy Results Lab Laboratory Tests 10/04/20 12:42: Glucometer 172H 10/04/20 17:33: Glucometer 125H 10/05/20 00:01: Glucometer 119H 10/05/20 05:20: White Blood Count 9.7, Red Blood Count 3.41L, Hemoglobin 8.3L, Hematocrit 28L, Mean Corpuscular Volume 81, Mean Corpuscular Hemoglobin 24L, Mean Corpuscular Hemoglobin Concent 30L, Red Cell Distribution Width 15.3H, Platelet Count 437H, Mean Platelet Volume 9.3, Sodium Level 141, Potassium Level 3.1L, Chloride Level 100, Carbon Dioxide Level 30, Anion Gap 11, Blood Urea Nitrogen 15, Creatinine 1.09, Estimat Glomerular Filtration Rate > 60, BUN/Creatinine Ratio 14, Glucose Level 107H, Calcium Level 8.4L Microbiology 09/30/20 Gram Stain - Final, Complete 09/30/20 Sputum Culture - Final, Complete YEAST 09/28/20 Blood Culture - Final, Complete No growth 09/28/20 Urine Culture - Final, Complete NO GROWTH Assessment/Plan Assessment/Plan Assessment/Plan S/P Extended Right hemicolectomy with partial Omentectomy Manual Decompression of small bowel s/p Abdominal washout, Wound VAC placement, Exploratory laparotomy with small bowel resection x2. Hypokalemia ? Ileus vs SBO Anemia - stable Leukocytosis- Resolved Plan to change wound VAC Tuesdays and Fridays. NGT to LIS Continue pain meds, antiemetics, abx coverage Encourage frequent IS use and coughing Continue PT and OT Encourage frequent repositioning Encourage ambulation TIALISHA AYALA DO 10/05/20 1728: Subjective Subjective/Events-last exam Patient with nausea and emesis last night. NG tube was placed. Patient feeling better today. No flatus or bowel movement. Hypokalemic. Denies fever sweats chills shortness of breath or chest pain at this time. Objective Exam General Appearance: No Apparent Distress HEENT: PERRL/EOMI, Normal ENT Inspection, Other (NG tube in place) Neck: Non Tender, Supple Respiratory: Chest Non Tender, No Accessory Muscle Use, No Respiratory Distress Gastrointestinal: distended (Slight distention minimal tenderness on palpation, wound VAC in place), tenderness (incisional, wound vac in place) Extremity: Normal Capillary Refill, Non Tender, No Calf Tenderness Neurologic/Psychiatric: Alert, Oriented x3, Normal Mood/Affect Skin: Warm/Dry Lymphatic: No Adenopathy Assessment/Plan Assessment/Plan Assessment/Plan S/P Extended Right hemicolectomy with partial Omentectomy Manual Decompression of small bowel s/p Abdominal washout, Wound VAC placement, Exploratory laparotomy with small bowel resection x2. Hypokalemia likely ileus Anemia - stable Leukocytosis- Resolved Plan to change wound VAC Tuesdays and Fridays. K replaced Repeat labs in am and add mag level NGT reinserted last night and to LIWS Continue pain meds, antiemetics, abx coverage Encourage frequent IS use and coughing Continue PT and OT Encourage frequent repositioning Encourage ambulation TID Supervisory-Addendum Brief Verification & Attestation Participated in pt care: history, MDM, physical Personally performed: exam, history, MDM, supervision of care Care discussed with: Medical Student Procedures: n/a Results interpretation: Verified all documentation Verification and Attestation of Medical Student E/M Service A medical student performed and documented this service in my presence. I reviewed and verified all information documented by the medical student and made modifications to such information, when appropriate. I personally performed the physical exam and medical decision making. Alisha Hansen, Oct 05, 2020,17:27 BIBIANA ONEIL MED STUDENT Oct 05, 2020 08:42 ALISHA HANSEN DO Oct 05, 2020 17:28
[2020-10-05] MEDS ORDERED: NS IV 500 ML 500 ML IV SCH (09:30)
[2020-10-05] MEDS: meTOprolol TARTRATE 50 MG (LOPRESSOR) TAB PO SCH ×2 (09:49→20:38)
[2020-10-05] MEDS: HYDROcodone/APAP 7.5 MG/325 MG (LORTAB, LORCET PLUS) TABLET PO PRN ×2 (09:49→20:38)
[2020-10-05] MEDS: POTASSIUM CL 10MEQ/50ML IVPB 50 ML IV SCH ×4 (09:49→13:14)
[2020-10-05] MEDS: LOSARTAN 25 MG (COZAAR) TAB PO SCH (09:49)
--- NOTE | 2020-10-05 09:55 | Progress Note ---
Subjective Date Seen by a Provider: Oct 05, 2020 Time Seen by a Provider: 09:51 Subjective/Events-last exam Fwup wound dehiscence with fistula, S/P right colon resection for colon cancer, bowel resection for bowel obstruction, septic shock. NG tube back in place since last night. at bedside. No flatus or BM. Focused Exam Time of Focused Exam: 17:49 Objective Exam Vital Signs Date Time Temp Pulse Resp B/P (MAP) Pulse Ox O2 Delivery O2 Flow Rate FiO2 10/05/20 07:54 36.8 90 19 171/84 (113) 93 Nasal Cannula 2.00 10/05/20 07:02 95 Nasal Cannula 3.00 10/05/20 07:00 82 10/05/20 04:02 36.6 88 20 162/83 (109) 94 Nasal Cannula 3.00 10/05/20 01:12 96 Nasal Cannula 3.00 10/05/20 00:48 36.5 90 20 160/87 (111) 99 Nasal Cannula 3.00 10/05/20 00:19 86 10/04/20 22:21 95 Nasal Cannula 3.00 10/04/20 20:55 Nasal Cannula 3.00 10/04/20 19:07 36.6 108 20 170/91 (117) 96 High Flow N/C 3.00 10/04/20 19:00 92 10/04/20 18:26 94 Nasal Cannula 3.00 10/04/20 16:19 36.6 98 20 156/84 (108) 93 High Flow N/C 3.00 10/04/20 14:21 92 Nasal Cannula 3.00 10/04/20 12:48 93 10/04/20 12:15 36.6 95 20 156/84 (108) 96 High Flow N/C 4.00 10/04/20 10:12 93 Nasal Cannula 3.00 I & O 10/05/20 07:00 Intake Total 1760 ml Output Total 2360 ml Balance -600 ml Capillary Refill : Less Than 3 SecondsLess Than 3 Seconds General Appearance: Moderate Distress Neck: Supple Respiratory: Lungs Clear Cardiovascular: Regular Rate, Rhythm Gastrointestinal: abnormal bowel sounds, distended, tenderness (RLQ), other (wound vac in place) Neurologic/Psychiatric: Alert, Other (groggy) Results Lab Laboratory Tests 10/04/20 12:42: Glucometer 172H 10/04/20 17:33: Glucometer 125H 10/05/20 00:01: Glucometer 119H 10/05/20 05:20: White Blood Count 9.7, Red Blood Count 3.41L, Hemoglobin 8.3L, Hematocrit 28L, Mean Corpuscular Volume 81, Mean Corpuscular Hemoglobin 24L, Mean Corpuscular Hemoglobin Concent 30L, Red Cell Distribution Width 15.3H, Platelet Count 437H, Mean Platelet Volume 9.3, Sodium Level 141, Potassium Level 3.1L, Chloride Level 100, Carbon Dioxide Level 30, Anion Gap 11, Blood Urea Nitrogen 15, Creatinine 1.09, Estimat Glomerular Filtration Rate > 60, BUN/Creatinine Ratio 14, Glucose Level 107H, Calcium Level 8.4L Microbiology 09/30/20 Gram Stain - Final, Complete 09/30/20 Sputum Culture - Final, Complete YEAST 09/28/20 Blood Culture - Final, Complete No growth 09/28/20 Urine Culture - Final, Complete NO GROWTH Assessment/Plan Assessment/Plan Assess & Plan/Chief Complaint 1. Severe Septic Shock due to Wound Dehiscence with fistula from recent right sided colectomy for colon cancer--S/P Exp Lap with bowel obstruction and bowel resection x2--and subsequent surgery for abdominal cleanout and wound vac placement, wound vac in place, continue zosyn, on eraxis, NG tube back in place--likely post-op ileus--update imaging per surgery 2. Hypertension--increase metoprolol dose 3. DMII--on accuchecks with SSI 4. COPD--on duoneb routinely 5. Weakness--PT started, states did sit in chair yesterday and ambulate to doorway and back twice 6. Hypokalemia--replace potassium via IV Clinical Quality Measures Admission Status Admission Dx 1. Abdominal Wound Dehiscence with Fistula/Incisional Hernia with Incarcerated Bowel--S/P recent right hemicolectomy for right sided colon cancer--Gut rest, IV antibiotics, surgical management 2. Hypertension--monitor and use lopressor prn 3. DMII--accuchecks with SSI 4. COPD--SVNs/inhalers prn YENI RUVALCABA DO Oct 05, 2020 09:55
--- NOTE | 2020-10-05 12:41 | Cardiology Progress Note ---
Subjective Date Seen by Provider: Oct 05, 2020 Time Seen by Provider: 12:40 Subjective/Events-last exam Patient is laying down in bed, tired. No new complaint Review of Systems General: No Chills, No Night Sweats; Fatigue; No Malaise, No Appetite, No Other HEENT: No Head Aches, No Visual Changes, No Eye Pain, No Ear Pain, No Dysphasia, No Sinus Congestion, No Post Nasal Drip, No Sore Throat, No Other Pulmonary: No Dyspnea, No Cough, No Pleuritic Chest Pain, No Other Cardiovascular: No: Chest Pain, Palpitations, Orthopnea, Paroxysmal Noc. Dyspnea, Edema, Lt Headedness, Other Focused Exam Time of Focused Exam: 17:49 Objective-Cardiology Exam Last Set of Vital Signs Vital Signs 10/03/20 10/05/20 10/05/20 10:19 11:54 12:18 Temp 36.7 Pulse 87 Resp 19 B/P (MAP) 171/78 (109) Pulse Ox 94 O2 Delivery Nasal Cannula O2 Flow Rate 2.00 FiO2 60 Capillary Refill : Less Than 3 SecondsLess Than 3 Seconds I&O Intake and Output 10/05/20 00:00 Intake Total 2110 ml Output Total 2520 ml Balance -410 ml Intake Oral 2110 ml Output Urine Total 1270 ml Post Void Residual 250 ml Gastric Drainage Total 1000 ml # Voids 2 General: Alert, Oriented X3, Cooperative HEENT: Atraumatic, PERRLA Neck: Supple, No JVD Lungs: Clear to Auscultation, Normal Air Movement Heart: Normal S1, Normal S2, Other (tachycardia) Abdomen: No Tenderness, Other (diminished bowel sounds) Extremities: No Clubbing, No Cyanosis Skin: No Rashes Neuro: Normal Speech, Sensation Intact Psych/Mental Status: Mental Status NL, Mood NL Results Lab Laboratory Tests 10/05/20 05:20 A/P-Cardiology Admission Diagnosis Sinus tachycardia Sepsis Colon cancer Shortness of breath Assessment/Plan Sinus tachycardia, probably secondary to sepsis, better today, on BB, continue to monitor Sepsis with septic shock, improving, managed by medical and surgical team Wound Dehiscence with fistula, had a wound VAC placed, managed and followed by Dr. Ramos History of colon cancer status post right colon resection, followed and managed by Dr. Ramos Anemia, continue to monitor H&H Coronary artery disease, history of CABG x3 done in 2007. Last cardiac catheterization was done on July 11, 2017 showing patent stent in the proximal LAD, small vessel disease distally, known occluded ZELAYA, patent vein graft to diagonal artery with good flow distally, patent vein graft to the right coronary artery with good flow distally, 50 percent ostial proximal left main stenosis, nondominant circumflex artery. Conservative management is rec ommended. Continue to monitor COPD, shortness of breath, followed and managed by Dr. Smith Obstructive sleep apnea, maintained on C Pap H/o episode of confusion with right sided weakness, had episode of tingling in his fingers and dizziness after micturition probably vasovagal episode, joan zhou history of TIA. Labile hypertension, monitor blood pressure History of orthostatic hypotension Hyperlipidemia - unable to tolerate statin dose any higher than 5mg, continue to monitor lipids Diabetes mellitus, followed and managed by primary care physician Carotid stenosis, mild nonobstructive disease bilaterally. Continue to monitor History of chronic compensated left ventricular diastolic dysfunction, echocardiogram done in April 2019 showing ejection fraction 50-55 percent, grade 2 diastolic dysfunction, left atrium 4.6 cm, aortic valve trivial regurgitation, PA pressure 35-40 mmHg. Continue to monitor History of tobaccoism, patient has been abstinent from smoking since 2007. History of parathyroidectomy done in in November 2018. NANCY ARREOLA MD Oct 05, 2020 12:41
[2020-10-06] MEDS: morphine INJ 4 MG/ML 1 ML (VIAL/SYRINGE) IVP PRN ×4 (00:54→18:43)
[2020-10-06] MEDS: PIPERACILLIN/TAZOBACTAM (BULK) 4.5 GM in NS (IVPB) 100 ML IV SCH ×3 (02:07→18:43)
[2020-10-06] MEDS: LACTATED RINGERS 1,000 ML IV SCH ×2 (04:07→18:42)
[2020-10-06] MEDS: RT-ALBUTEROL/IPRATROPIUM 3 ML (DUONEB) VIAL INH SCH ×6 (04:09→22:13)
[2020-10-06 04:15] VITALS: BP 156/86
[2020-10-06] MEDS: LEVOTHYROXINE 100 MCG INJ (SYNTHROID) VIAL IV SCH (05:26)
[2020-10-06 05:51] LABS: HEMOGLOBIN 8.7 g/dL (13.3-17.7); MEAN PLATELET VOLUME 9.3 fL (9.0-12.2); WHITE BLOOD COUNT 10.7 10^3/uL (4.3-11.0)
[2020-10-06 06:14] LABS: BUN/CREATININE RATIO 13; CALCIUM 8.3 MG/DL (8.5-10.1); CARBON DIOXIDE 28 MMOL/L (21-32); CHLORIDE 104 MMOL/L (98-107); CREATININE SERUM 1.11 MG/DL (0.60-1.30); GFR ESTIMATED > 60; GLUCOSE 92 MG/DL (70-105); MAGNESIUM 2.2 MG/DL (1.6-2.4); POTASSIUM 3.5 MMOL/L (3.6-5.0); SODIUM 143 MMOL/L (135-145)
[2020-10-06] MEDS: inSUlin ASPART (NovoLOG) 1 UNIT/0.01 ML (CHARGE PER UNIT) SC SCH ×4 (06:24→23:47)
[2020-10-06 08:00] VITALS: BP 144/70
--- NOTE | 2020-10-06 08:14 | Progress Note - Hospitalist ---
JOJO GRIFFIN MED STUDENT 10/06/20 0814: Subjective HPI/CC On Admission Date Seen by Provider: Oct 06, 2020 Time Seen by Provider: 08:00 Fwup wound dehiscence with fistula, S/P right colon resection for colon cancer, bowel resection for bowel obstruction, septic shock. Subjective/Events-last exam Pt resting comfortably in bed with at bedside, pain controlled. NGT in place and nausea has improved since its placement 2 days ago. Denies BM and flatus. Focused Exam Time of Focused Exam: 17:49 Objective Exam Vital Signs Vital Signs Date Time Temp Pulse Resp B/P (MAP) Pulse Ox O2 Delivery O2 Flow Rate FiO2 10/06/20 06:44 93 Nasal Cannula 2.00 10/06/20 04:15 36.6 82 20 156/86 (109) 10/03/20 10:19 60 Capillary Refill : Less Than 3 SecondsLess Than 3 Seconds General Appearance: No Apparent Distress, WD/WN Respiratory: Chest Non Tender, Lungs Clear, Normal Breath Sounds, No Accessory Muscle Use Cardiovascular: Regular Rate, Rhythm, No JVD, Normal Peripheral Pulses Gastrointestinal: Soft, Abnormal Bowel Sounds (decreased throughout), Other (wound vac in place; wound is c/d/i with no erythema. NGT in place.) Extremity: Normal Inspection, No Calf Tenderness, No Pedal Edema Neurologic/Psychiatric: Alert, Oriented x3, Normal Mood/Affect Results/Procedures Lab Laboratory Tests 10/06/20 05:35 Patient resulted labs reviewed. Assessment/Plan Assessment and Plan Assess & Plan/Chief Complaint 1. Severe Septic Shock due to Wound Dehiscence with fistula from recent right sided colectomy for colon cancer--S/P Exp Lap with bowel obstruction and bowel resection x2--and subsequent surgery for abdominal cleanout and wound vac placement, wound vac in place, continue zosyn, on eraxis, NG tube back in place--likely post-op ileus--update imaging per surgery 2. Hypertension--increase metoprolol dose 3. DMII--on accuchecks with SSI 4. COPD--on duoneb routinely 5. Weakness--PT started, states did sit on commode today and ambulate to bathroom 6. Hypokalemia--replace potassium via IV Diagnosis/Problems Diagnosis/Problems (1) COPD (chronic obstructive pulmonary disease) Status: Chronic (2) Wound dehiscence Status: Acute (3) Hypertension Status: Chronic (4) Status post right hemicolectomy Status: Acute (5) Diabetes YENI RUVALCABA DO 10/06/20 1740: Supervisory-Addendum Brief Verification & Attestation Participated in pt care: history, physical Personally performed: exam Care discussed with: Medical Student Procedures: n/a Patient seen and agree with above treatment and plan. JOJO GRIFFIN MED STUDENT Oct 06, 2020 08:14 YENI RUVALCABA DO Oct 06, 2020 17:40
--- NOTE | 2020-10-06 08:19 | Progress Note - Surgery ---
ALICIA BERMAN MED STUDENT 10/06/20 0819: Subjective Date Seen by a Provider: Oct 06, 2020 Time Seen by a Provider: 07:15 Subjective/Events-last exam Pt is lying in bed this morning awake and alert. States that his abdominal pain this morning is about a 4, describes as achy and dull. States pain meds make it better. Coughing makes it worse. No radiation. He has not had BM or passed gas this morning. States he had the urge to have a bowel movement yesterday but wasn't able to have one. He has been taken off liquids and now has NG tube placed. Pt is ambulating him 2x day. Using his IS. NG tube contents about 600mL of greenish yellow fluid. No bryant. States it is hard for him to urinate sometimes when he is sitting down. Wound Vac contains about 250ml of fluid. Pt still has a cough this morning. No other questions or concerns at this time. Review of Systems General: No Chills, No Fatigue HEENT: No Head Aches, No Visual Changes, No Ear Pain Pulmonary: No Dyspnea; Cough Cardiovascular: No: Chest Pain, Palpitations Gastrointestinal: Nausea, Vomiting (Previous Day, none today), Constipation; No: Diarrhea, Melena, Hematochezia Genitourinary: Dysuria; No Hematuria Musculoskeletal: No: leg pain Focused Exam Time of Focused Exam: 17:49 Objective Exam Vital Signs Date Time Temp Pulse Resp B/P (MAP) Pulse Ox O2 Delivery O2 Flow Rate FiO2 10/06/20 06:44 93 Nasal Cannula 2.00 10/06/20 04:15 36.6 82 20 156/86 (109) 91 Nasal Cannula 2.00 10/06/20 01:05 91 10/05/20 23:25 36.9 82 20 151/77 (101) 98 Nasal Cannula 2.00 10/05/20 21:45 87 Nasal Cannula 1.00 10/05/20 20:00 Nasal Cannula 1.00 10/05/20 19:35 36.6 80 20 157/76 (103) 96 Nasal Cannula 1.00 10/05/20 19:00 80 10/05/20 15:47 36.9 90 20 129/70 (89) 96 Nasal Cannula 1.00 10/05/20 14:17 94 Nasal Cannula 2.00 10/05/20 12:18 87 3/14/21 11:54 36.7 91 19 171/78 (109) 94 Nasal Cannula 2.00 10/05/20 10:28 95 Nasal Cannula 2.00 l I & O 10/06/20 07:00 Intake Total 1560 ml Output Total 1525 ml Balance 35 ml Capillary Refill : Less Than 3 SecondsLess Than 3 Seconds General Appearance: No Apparent Distress HEENT: Other (NG tube in place) Respiratory: Chest Non Tender, Lungs Clear, Normal Breath Sounds, No Accessory Muscle Use, No Respiratory Distress Cardiovascular: Regular Rate, Rhythm, No Murmur, Normal Peripheral Pulses Peripheral Pulses: 2+ Radial Pulses (R), 2+ Radial Pulses (L) Gastrointestinal: distended (Slight distention minimal tenderness on palpation, wound VAC in place), tenderness (incisional, wound vac in place), other (Abdominal incision with wound vac in place. Draining, no leaking, vaccum intact. Minimal erythema at edges. ) Extremity: Non Tender, No Calf Tenderness, No Pedal Edema (No pitting) Neurologic/Psychiatric: Alert, Oriented x3, Normal Mood/Affect Skin: Normal Color, Warm/Dry Lymphatic: No Adenopathy Results Lab Laboratory Tests 10/05/20 10:20: Iron Level 16L, Total Iron Binding Capacity 147L, Unsaturated Iron Binding Capacity 131, Transferrin % Saturation 11L, Ferritin 258.5 10/05/20 11:26: Glucometer 102 10/05/20 16:54: Glucometer 99 10/05/20 23:17: Glucometer 88 10/06/20 05:35: White Blood Count 10.7, Red Blood Count 3.53L, Hemoglobin 8.7L, Hematocrit 29L, Mean Corpuscular Volume 81, Mean Corpuscular Hemoglobin 25, Mean Corpuscular Hemoglobin Concent 30L, Red Cell Distribution Width 15.5H, Platelet Count 502H, Mean Platelet Volume 9.3, Sodium Level 143, Potassium Level 3.5L, Chloride Level 104, Carbon Dioxide Level 28, Anion Gap 11, Blood Urea Nitrogen 14, Creatinine 1.11, Estimat Glomerular Filtration Rate > 60, BUN/Creatinine Ratio 13, Glucose Level 92, Calcium Level 8.3L, Magnesium Level 2.2 Microbiology 09/30/20 Gram Stain - Final, Complete 09/30/20 Sputum Culture - Final, Complete YEAST 09/28/20 Blood Culture - Final, Complete No growth 09/28/20 Urine Culture - Final, Complete NO GROWTH Assessment/Plan Assessment/Plan Assessment/Plan 1. s/p Abdominal washout, Wound VAC placement, Exploratory laparotomy with small bowel resection x2. -Continue Pain meds, IS, PT, NPO, NG tube, ABX -Continue Routine Labs 2. Hypokalemia -Improved to 3.5 today. -KCl if worsens 3. Likely ileus -Continue NG tube -If persists or worsening, Xray or CT, possible surgical correction 4. Anemia -stable -HGB improved to 8.7 today 5. Leukocytosis -Resolved -Continue ABX and morning CBC OSMIN MARTIN DO 10/06/20 1400: Subjective Time Seen by a Provider: 13:51 Subjective/Events-last exam Pt seen and examined, sitting in chair. States no flatus and no BM; they had to replace NGT over the weekend and are still getting a fair amount out. Review of Systems General: No Chills; Fatigue HEENT: No Head Aches, No Visual Changes Pulmonary: No Dyspnea; Cough Cardiovascular: No: Chest Pain, Palpitations Gastrointestinal: Nausea, Vomiting (Previous Day, none today), Constipation; No: Diarrhea Objective Exam General Appearance: No Apparent Distress Respiratory: Lungs Clear, Normal Breath Sounds, No Accessory Muscle Use, No Respiratory Distress Cardiovascular: Regular Rate, Rhythm, No Murmur Gastrointestinal: distended (Slight distention ), tenderness (minimal at incision), other (Abdominal incision with wound vac in place. Draining, no leaking, vaccum intact. Minimal erythema at edges. ) Assessment/Plan Assessment/Plan Assessment/Plan Metastatic Colon CA s/p SBR and washout -awaiting return of bowel fxn, pt encouraged to ambulate, ok to chew gum and use IS. Pain meds as needed and anti-emetics Supervisory-Addendum Brief Verification & Attestation Participated in pt care: history, MDM, physical Personally performed: exam, history, MDM Care discussed with: Medical Student Procedures: n/a Verification and Attestation of Medical Student E/M Service A medical student performed and documented this service. I then reviewed and verified all information documented by the medical student and made modific ations to such information, when appropriate. I personally performed a physical exam, medical decision making and then discussed any differences between the notes and made revisions as necessary to create one note. Osmin Martin , 10/06/20 , 14:00 ALICIA BERMAN MED STUDENT Oct 06, 2020 08:19 OSMIN MARTIN DO Oct 06, 2020 14:00
[2020-10-06] MEDS: PANTOPRAZOLE 40 MG (PROTONIX) VIAL IV SCH (09:14)
[2020-10-06] MEDS: ANIDULAFUNGIN INJECTION 100 MG in NS (IVPB) 100 ML IV SCH (09:14)
[2020-10-06] MEDS: HYDROcodone/APAP 7.5 MG/325 MG (LORTAB, LORCET PLUS) TABLET PO PRN ×2 (09:15→21:25)
[2020-10-06] MEDS: ENOXAPARIN 40 MG/0.4 ML (LOVENOX) SYR SC SCH (09:15)
[2020-10-06] MEDS: meTOprolol TARTRATE 50 MG (LOPRESSOR) TAB PO SCH ×2 (09:15→21:25)
--- NOTE | 2020-10-06 10:10 | Cardiology Progress Note ---
Subjective Date Seen by Provider: Oct 06, 2020 Time Seen by Provider: 10:09 Subjective/Events-last exam Patient is laying down in bed. No new complaint. No chest pain. Review of Systems General: No Chills, No Night Sweats; Fatigue, Malaise; No Appetite, No Other HEENT: No Head Aches, No Visual Changes, No Eye Pain, No Ear Pain, No Dysphasia, No Sinus Congestion, No Post Nasal Drip, No Sore Throat, No Other Pulmonary: No Dyspnea, No Cough, No Pleuritic Chest Pain, No Other Cardiovascular: No: Chest Pain, Palpitations, Orthopnea, Paroxysmal Noc. Dyspnea, Edema, Lt Headedness, Other Focused Exam Time of Focused Exam: 17:49 Objective-Cardiology Exam Last Set of Vital Signs Vital Signs 10/03/20 10:19 FiO2 60 Capillary Refill : Less Than 3 SecondsLess Than 3 Seconds I&O Intake and Output 10/06/20 00:00 Intake Total 1560 ml Output Total 1610 ml Balance -50 ml Intake Oral 0 ml IV Total 1560 ml Output Urine Total 810 ml Gastric Drainage Total 800 ml General: Alert, Oriented X3, Cooperative HEENT: Atraumatic, PERRLA Neck: Supple, No JVD Lungs: Clear to Auscultation, Normal Air Movement Heart: Normal S1, Normal S2, Other (tachycardia) Abdomen: No Tenderness, Other (diminished bowel sounds) Extremities: No Clubbing, No Cyanosis Skin: No Rashes Neuro: Normal Speech, Sensation Intact Psych/Mental Status: Mental Status NL, Mood NL Results Lab Laboratory Tests 10/06/20 05:35 A/P-Cardiology Admission Diagnosis Sinus tachycardia Sepsis Colon cancer Shortness of breath Assessment/Plan Sinus tachycardia, probably secondary to sepsis, better on BB, continue to monitor Sepsis with septic shock, better, managed by medical and surgical team Wound Dehiscence with fistula, had a wound VAC placed, managed and followed by Dr. Ramos History of colon cancer status post right colon resection, followed and managed by Dr. Ramos Anemia, continue to monitor H&H Coronary artery disease, history of CABG x3 done in 2007. Last cardiac catheterization was done on July 11, 2017 showing patent stent in the pro ximal LAD, small vessel disease distally, known occluded ZELAYA, patent vein graft to diagonal artery with good flow distally, patent vein graft to the right coronary artery with good flow distally, 50 percent ostial proximal left main stenosis, nondominant circumflex artery. Conservative management is recommended. Continue to monitor COPD, shortness of breath, followed and managed by Dr. Smith Obstructive sleep apnea, maintained on C Pap H/o episode of confusion with right sided weakness, had episode of tingling in his fingers and dizziness after micturition probably vasovagal episode, q uestionable history of TIA. Labile hypertension, monitor blood pressure History of orthostatic hypotension Hyperlipidemia - unable to tolerate statin dose any higher than 5mg, continue to monitor lipids Diabetes mellitus, followed and managed by primary care physician Carotid stenosis, mild nonobstructive disease bilaterally. Continue to monitor History of chronic compensated left ventricular diastolic dysfunction, echocardiogram done in April 2019 showing ejection fraction 50-55 percent, grade 2 diastolic dysfunction, left atrium 4.6 cm, aortic valve trivial regurgitation, PA pressure 35-40 mmHg. Continue to monitor History of tobaccoism, patient has been abstinent from smoking since 2007. History of parathyroidectomy done in in November 2018. NANCY ARREOLA MD Oct 06, 2020 10:10 am
--- NOTE | 2020-10-06 10:18 | Physical Therapy Daily Note ---
PT Daily Note-Current Subjective Patient is in bed with spouse present. Agrees to PT. Mental Status Patient Orientation: Normal For Age Attachments: NG Tube, Oxygen, IV wound vac Transfers SCALE: Activities may be completed with or without assistive devices. 7-[id number] completes the activity by him/herself with no assistance from a helper. 5-Set-up or Clean-up Assistance-helper sets up or cleans up; patient completes activity. [place] assists only prior to or following the activity. 4-Supervision or Touching Assistance-helper provides verbal cues and/or touching/steadying and/or contact guard assistance as patient completes activity. Assistance may be provided throughout the activity or intermittently. 3-Partial/Moderate Assistance-helper does LESS THAN HALF the effort. [place] lifts, holds or supports trunk or limbs, but provides less than half the effort. 2-Substantial/Maximal Assistance-helper does MORE THAN HALF the effort. [place] lifts or holds trunk or limbs and provides more than half the effort. 6-Mxepwxkhi-mdqbxi does ALL the effort. Patient does none of the effort to complete the activity. Or, the assistance of 2 or more helpers is required for the patient to complete the activity. If activity was not attempted, code reason: 7-Patient Refused. 9-Not Applicable-not attempted and the patient did not perform the activity before the current illness, exacerbation or injury. 10-Not Attempted due to Environmental Limitations-(lack of equipment, weather restraints, etc.). 88-Not Attempted due to Medical Conditions or Safety Concerns. Roll Left & Right (QC): 5 Lying to Sitting/Side of Bed(Q: 5 Sit to Stand (QC): 5 Chair/Ysv-xa-Kvxhz Xfer(QC): 5 Gait Training Does the Patient Walk?: Yes Distance: 275' Walk 10 feet (QC): 4 Walk 50 ft with 2 Turns(QC): 4 Walk 150 ft (QC): 4 Gait Assistive Device: FWW very slow, steady gait sequence Exercises Seated Therapy Exercises: Ankle pumps, Long arc quads Seated Reps: 15 Assessment Patient up in recliner. PT instructed patient to stand to FWW PRN and perform marching to increase activity. Nursing notified to continue with ambulation PRN with patient. PT Milk Pickup Driver Goals Milk Pickup Driver Goals PT Senior Living Goals Time Frame: Oct 08, 2020 Roll Left & Right (QC): 3 Sit to Lying (QC): 3 Lying-Sitting on Side/Bed(QC): 3 Sit to Stand (QC): 3 Chair/[id number]-ps-Fnfmy Xfer(QC): 3 Walk 10 feet (QC): 3 PT Plan Treatment/Plan Treatment Plan: Continue Plan of Care Treatment Plan: Bed Mobility, Education, Functional Activity Jossy, Functional Strength, Gait, Safety, Therapeutic Exercise, Transfers Treatment Duration: Oct 08, 2020 Frequency: 6 times per week Estimated Hrs Per Day: .25 hour per day Patient and/or Family Agrees t: Yes Time/GCodes Time In: 918 Time Out: 943 Total Billed Treatment Time: 25 Total Billed Treatment 1 visit FA x 2 25 min AUBREY GRANADOS PT Oct 06, 2020 10:18
[2020-10-06] MEDS: LOSARTAN 25 MG (COZAAR) TAB PO SCH (11:20)
[2020-10-06 12:12] VITALS: BP 150/65
[2020-10-06 15:49] VITALS: BP 158/72
[2020-10-06] MEDS: POTASSIUM CL 10MEQ/50ML IVPB 50 ML IV SCH ×2 (18:43→19:23)
[2020-10-06 19:30] VITALS: BP 154/74
[2020-10-06 23:44] VITALS: BP 164/75
[2020-10-07] VITALS (7 sets, daily range): BP systolic 136–173; BP diastolic 64–81
[2020-10-07] MEDS: morphine INJ 4 MG/ML 1 ML (VIAL/SYRINGE) IVP PRN ×4 (01:34→20:05)
[2020-10-07] MEDS: PIPERACILLIN/TAZOBACTAM (BULK) 4.5 GM in NS (IVPB) 100 ML IV SCH ×3 (02:09→17:17)
[2020-10-07] MEDS: RT-ALBUTEROL/IPRATROPIUM 3 ML (DUONEB) VIAL INH SCH ×6 (02:30→22:09)
[2020-10-07] MEDS: LEVOTHYROXINE 25 MCG (LEVOTHROID) TAB PO SCH (05:06)
[2020-10-07] MEDS: LACTATED RINGERS 1,000 ML IV SCH (05:07)
[2020-10-07 05:36] LABS: HEMOGLOBIN 7.7 g/dL (13.3-17.7); MEAN PLATELET VOLUME 9.4 fL (9.0-12.2); WHITE BLOOD COUNT 9.3 10^3/uL (4.3-11.0)
[2020-10-07 06:08] LABS: CHLORIDE 103 MMOL/L (98-107); POTASSIUM 3.4 MMOL/L (3.6-5.0); SODIUM 144 MMOL/L (135-145)
[2020-10-07 06:09] LABS: CALCIUM 8.2 MG/DL (8.5-10.1)
[2020-10-07 06:10] LABS: GLUCOSE 81 MG/DL (70-105)
[2020-10-07 06:11] LABS: CARBON DIOXIDE 24 MMOL/L (21-32)
[2020-10-07] MEDS: inSUlin ASPART (NovoLOG) 1 UNIT/0.01 ML (CHARGE PER UNIT) SC SCH ×4 (06:11→23:46)
[2020-10-07 06:13] LABS: CREATININE SERUM 0.99 MG/DL (0.60-1.30)
[2020-10-07 06:14] LABS: BUN/CREATININE RATIO 11; GFR ESTIMATED > 60
--- NOTE | 2020-10-07 08:07 | Progress Note - Surgery ---
ALIICA BERMAN MED STUDENT 10/07/20 0807: Subjective Date Seen by a Provider: Oct 07, 2020 Time Seen by a Provider: 07:45 Subjective/Events-last exam Patient is awake and lying in bed this morning. States his pain is probably about a five today. Pain starts low and radiates up to the top of his incision. Pain meds helped. Coughing makes it worse. Has not had BM or flatus today, states he felt the urge but couldn't do it. Has been walking with PT and chewing gum. Is still NPO. Still using IS. NG tube is in place, freshly changed container. No bryant, Wound vac contains slightly under 400mL. states he seems a bit more lucid than when he was in ICU but still gets confused sometimes. No other questions or concerns. Review of Systems General: No Chills, No Fatigue HEENT: No Head Aches, No Visual Changes Pulmonary: No Dyspnea; Cough Cardiovascular: No: Chest Pain, Palpitations, Edema Gastrointestinal: Abdominal Pain, Constipation; No: Nausea, Vomiting Genitourinary: No Hematuria Musculoskeletal: No: leg pain Focused Exam Time of Focused Exam: 17:49 Objective Exam Vital Signs Date Time Temp Pulse Resp B/P (MAP) Pulse Ox O2 Delivery O2 Flow Rate FiO2 10/07/20 06:58 91 Room Air 10/07/20 03:25 36.4 91 20 173/81 (111) 93 Room Air 10/07/20 02:30 92 Room Air 10/07/20 01:00 84 10/06/20 23:44 36.6 86 18 164/75 (104) 93 Room Air 10/06/20 22:13 96 Nasal Cannula 1.00 10/06/20 19:37 Nasal Cannula 2.00 10/06/20 19:30 36.4 90 18 154/74 (100) 93 Nasal Cannula 1.00 10/06/20 19:00 90 10/06/20 18:48 98 Nasal Cannula 2.00 10/06/20 15:49 36.4 84 18 158/72 (100) 96 Nasal Cannula 2.50 10/06/20 14:32 97 Nasal Cannula 2.00 10/06/20 12:21 88 10/06/20 12:12 36.6 92 18 150/65 (93) 98 Nasal Cannula 2.00 10/06/20 10:31 93 Nasal Cannula 2.00 I & O 10/07/20 07:00 Output Total 3475 ml Balance -3475 ml Capillary Refill : Less Than 3 SecondsLess Than 3 Seconds General Appearance: No Apparent Distress HEENT: Other (NG tube in place) Respiratory: Chest Non Tender, Lungs Clear, Normal Breath Sounds, No Accessory Muscle Use, No Respiratory Distress Cardiovascular: Regular Rate, Rhythm, No Murmur, Normal Peripheral Pulses Peripheral Pulses: 2+ Radial Pulses (R), 2+ Radial Pulses (L) Gastrointestinal: abnormal bowel sounds (anechoic), distended (Slight distention ), tenderness (minimal at incision), other (Abdominal incision with wound vac in place. Draining, no leaking, vaccum intact. Minimal erythema at edges. ) Extremity: Non Tender, No Calf Tenderness, No Pedal Edema (No pitting) Neurologic/Psychiatric: Alert, Oriented x3, Normal Mood/Affect Skin: Normal Color, Warm/Dry Lymphatic: No Adenopathy Results Lab Laboratory Tests 10/06/20 11:03: Glucometer 95 10/06/20 17:11: Glucometer 86 10/06/20 23:37: Glucometer 84 10/07/20 05:20: White Blood Count 9.3, Red Blood Count 3.17L, Hemoglobin 7.7L, Hematocrit 26L, Mean Corpuscular Volume 81, Mean Corpuscular Hemoglobin 24L, Mean Corpuscular Hemoglobin Concent 30L, Red Cell Distribution Width 15.2H, Platelet Count 405H, Mean Platelet Volume 9.4, Sodium Level 144, Potassium Level 3.4L, Chloride Level 103, Carbon Dioxide Level 24, Anion Gap 17H, Blood Urea Nitrogen 11, Creatinine 0.99, Estimat Glomerular Filtration Rate > 60, BUN/Creatinine Ratio 11, Glucose Level 81, Calcium Level 8.2L Microbiology 09/30/20 Gram Stain - Final, Complete 09/30/20 Sputum Culture - Final, Complete YEAST 09/28/20 Blood Culture - Final, Complete No growth 09/28/20 Urine Culture - Final, Complete NO GROWTH Assessment/Plan Assessment/Plan Assessment/Plan 1. Metastatic Colon CA s/p SBR and washout -Continue Pain meds, IS, PT, NPO, NG tube, ABX -Pt is chewing gum and ambulating, has felt urge to BM or flatus for 2 days -Continue Routine Labs 2. Hypokalemia -Dropped to 3.4 today. -KCl if worsens -Likely to improve once pt can tolerate foods 3. Anemia -HGB dropped to 7.7 from 8.7 -No signs of bleeding or symptoms -Further workup w/ T/S if worsens, or symptomatic OSMIN MARTIN DO 10/07/20 1243: Subjective Time Seen by a Provider: 10:56 Subjective/Events-last exam Pt seen and examined, states still no BM or flatus. Pt in not really nauseous and NGT output slightly decreased. States he feels like he is about to have BM, but still nothing. Pain controlled. Review of Systems General: No Chills; Fatigue Pulmonary: No Dyspnea; Cough Cardiovascular: No: Chest Pain, Palpitations, Edema Gastrointestinal: Abdominal Pain, Constipation; No: Nausea, Vomiting Objective Exam General Appearance: No Apparent Distress Respiratory: Lungs Clear, Normal Breath Sounds, No Accessory Muscle Use, No Respiratory Distress Cardiovascular: Regular Rate, Rhythm, No Murmur Gastrointestinal: soft, abnormal bowel sounds (hypoactive), distended (Slight distention ), tenderness (minimal at incision), other (Abdominal incision with wound vac in place. Draining, no leaking, vaccum intact. Minimal erythema at edges. ) Assessment/Plan Assessment/Plan Assessment/Plan 1. Metastatic Colon CA s/p SBR and washout -Continue Pain meds, IS, PT, NPO, NG tube, ABX -Pt is chewing gum and encouraged to ambulate more, has felt urge to BM or flatus for 2 days Supervisory-Addendum Brief Verification & Attestation Participated in pt care: history, MDM, physical Personally performed: exam, history, MDM Care discussed with: Medical Student Procedures: n/a Verification and Attestation of Medical Student E/M Service A medical student performed and documented this service. I then reviewed and verified all information documented by the medical student and made modifications to such information, when appropriate. I personally performed a physical exam, medical decision making and then discussed any differences between the notes and made revisions as necessary to create one note. Osmin Martin , 10/07/20 , 12:43 ALICIA BERMAN MED STUDENT Oct 07, 2020 08:07 OSMIN MARTIN DO Oct 07, 2020 12:43
--- NOTE | 2020-10-07 08:24 | Progress Note - Hospitalist ---
JOJO GRIFFIN MED STUDENT 10/07/20 0824: Subjective HPI/CC On Admission Date Seen by Provider: Oct 07, 2020 Time Seen by Provider: 08:10 Fwup wound dehiscence with fistula, S/P right colon resection for colon cancer, bowel resection for bowel obstruction, septic shock. Subjective/Events-last exam Pt sitting up in chair with next to him. Pain is well-controlled. He is no longer on oxygen today (O2 91%), NGT in place. Still no BM or flatus but feels the urge to go. Focused Exam Time of Focused Exam: 17:49 Objective Exam Vital Signs Vital Signs Date Time Temp Pulse Resp B/P (MAP) Pulse Ox O2 Delivery O2 Flow Rate FiO2 10/07/20 06:58 91 Room Air 10/07/20 03:25 36.4 91 20 173/81 (111) 10/06/20 22:13 1.00 10/03/20 10:19 60 Capillary Refill : Less Than 3 SecondsLess Than 3 Seconds General Appearance: No Apparent Distress, WD/WN Respiratory: Chest Non Tender, Lungs Clear, No Respiratory Distress Cardiovascular: Regular Rate, Rhythm, No Edema, Normal Peripheral Pulses Gastrointestinal: Non Tender, Abnormal Bowel Sounds (decreased), Other (wound vac in place. NGT in place.) Extremity: Non Tender, No Calf Tenderness, No Pedal Edema Neurologic/Psychiatric: Alert, Oriented x3 Results/Procedures Lab Laboratory Tests 10/07/20 05:20 Patient resulted labs reviewed. Assessment/Plan Assessment and Plan Assess & Plan/Chief Complaint 1. Severe Septic Shock due to Wound Dehiscence with fistula from recent right sided colectomy for colon cancer--S/P Exp Lap with bowel obstruction and bowel resection x2--and subsequent surgery for abdominal cleanout and wound vac placement, wound vac in place, continue zosyn, no longer on eraxis, NG tube back in place--likely post-op ileus--update imaging abdominal x-ray 2. Hypertension--increase metoprolol dose 3. DMII--on accuchecks with SSI 4. COPD--on duoneb routinely 5. Weakness--PT started - working on marching in place, ambulates in room to bathroom 6. Hypokalemia--replace potassium via IV 7. Anemia -- 1 unit PRBC Diagnosis/Problems Diagnosis/Problems (1) COPD (chronic obstructive pulmonary disease) Status: Chronic (2) Wound dehiscence Status: Acute (3) Hypertension Status: Chronic (4) Status post right hemicolectomy Status: Acute (5) Diabetes YENI RUVALCABA DO 10/07/20 0841: Supervisory-Addendum Brief Verification & Attestation Participated in pt care: history, physical Personally performed: exam Care discussed with: Medical Student Procedures: n/a Patient examined and above note and plan reviewed. JOJO GRIFFIN MED STUDENT Oct 07, 2020 08:24 YENI RUVALCABA DO Oct 07, 2020 08:41
--- NOTE | 2020-10-07 09:36 | Diagnostic Imaging Report ---
INDICATION: Postoperative ileus. TECHNIQUE: Supine and upright view of the abdomen 9:20 AM CORRELATION STUDY: 09/18/2020 FINDINGS: Gastric tube tip in the region of body of stomach. Gas within stomach. A few gas-filled loops of small bowel are present. A few nonspecific air-fluid levels. There is generalized osseous colonic gas. There are anastomotic suture lines in bilateral mid abdomen. Additional clips in the left hemipelvis.. Tubing projects over the right lower quadrant. IMPRESSION: 1. Surgical change of the abdomen. Mildly prominent gas filled loops of small bowel with air-fluid levels. Favors probable ileus. Partial or some mild small bowel obstruction not excluded. Dictated by: Dictated on workstation # [id number]
[2020-10-07] MEDS: ANIDULAFUNGIN INJECTION 100 MG in NS (IVPB) 100 ML IV SCH (09:47)
[2020-10-07] MEDS: POTASSIUM CL 10MEQ/50ML IVPB 50 ML IV SCH ×2 (09:47→09:50)
[2020-10-07] MEDS: meTOprolol TARTRATE 50 MG (LOPRESSOR) TAB PO SCH ×2 (09:48→20:05)
[2020-10-07] MEDS: LOSARTAN 50 MG (COZAAR) TAB PO SCH (09:48)
[2020-10-07] MEDS: POTASSIUM CHLORIDE INJ 20 MEQ in D5 LR IV SOLUTION 1,000 ML IV SCH ×2 (09:48→17:17)
[2020-10-07] MEDS: PANTOPRAZOLE 40 MG (PROTONIX) VIAL IV SCH (09:49)
[2020-10-07] MEDS: ENOXAPARIN 40 MG/0.4 ML (LOVENOX) SYR SC SCH (09:49)
--- NOTE | 2020-10-07 10:06 | Physical Therapy Daily Note ---
PT Daily Note-Current Subjective Patient agrees to PT. Mental Status Patient Orientation: Normal For Age wound vac abdomen Transfers SCALE: Activities may be completed with or without assistive devices. 9-Makflqcpxf-klgspzv completes the activity by him/herself with no assistance fr om a helper. 5-Set-up or Clean-up Assistance-helper sets up or cleans up; patient completes activity. Cadet assists only prior to or following the activity. 4-Supervision or Touching Assistance-helper provides verbal cues and/or touching/steadying and/or contact guard assistance as patient completes activity. Assistance may be provided throughout the activity or intermittently. 3-Partial/Moderate Assistance-helper does LESS THAN HALF the effort. Cadet lifts, holds or supports trunk or limbs, but provides less than half the effort. 2-Substantial/Maximal Assistance-helper does MORE THAN HALF the effort. Cadet lifts or holds trunk or limbs and provides more than half the effort. 1-Bwhcuxuke-gjlntk does ALL the effort. Patient does none of the effort to complete the activity. Or, the assistance of 2 or more helpers is required for the patient to complete the activity. If activity was not attempted, code reason: 7-Patient Refused. 9-Not Applicable-not attempted and the patient did not perform the activity before the current illness, exacerbation or injury. 10-Not Attempted due to Environmental Limitations-(lack of equipment, weather restraints, etc.). 88-Not Attempted due to Medical Conditions or Safety Concerns. Sit to Stand (QC): 4 Chair/Alf-bx-Wwdfy Xfer(QC): 4 Gait Training Does the Patient Walk?: Yes Distance: 275' Walk 10 feet (QC): 4 Walk 50 ft with 2 Turns(QC): 4 Walk 150 ft (QC): 4 Gait Assistive Device: FWW very slow, functional gait sequence Exercises Seated Therapy Exercises: Ankle pumps, Long arc quads Seated Reps: 15 Assessment Increase in fatigue on this date. Patient is up in recliner with needs met. He is up with nursing PRN ambulating in hallway. PT Fdc Goals Auto Wheel Alignment Specialist Goals PT Auto Wheel Alignment Specialist Goals Time Frame: Oct 08, 2020 Roll Left & Right (QC): 3 Sit to Lying (QC): 3 Lying-Sitting on Side/Bed(QC): 3 Sit to Stand (QC): 3 Chair/Vvt-px-Nvdcm Xfer(QC): 3 Walk 10 feet (QC): 3 PT Plan Treatment/Plan Treatment Plan: Continue Plan of Care Treatment Plan: Bed Mobility, Education, Functional Activity Jossy, Functional Strength, Gait, Safety, Therapeutic Exercise, Transfers Treatment Duration: Oct 08, 2020 Frequency: 6 times per week Estimated Hrs Per Day: .25 hour per day Patient and/or Family Agrees t: Yes Time/GCodes Time In: 928 Time Out: 939 Total Billed Treatment Time: 11 Total Billed Treatment 1 visit FA 11 min AUBREY GRANADOS PT Oct 07, 2020 10:06
[2020-10-07] MEDS: ONDANSETRON 4 MG/2 ML (SDV) Z0FRAN IVP PRN (11:58)
--- NOTE | 2020-10-07 12:13 | Cardiology Progress Note ---
Subjective Date Seen by Provider: Oct 07, 2020 Time Seen by Provider: 12:11 Subjective/Events-last exam patient is sitting in a chair, frustrated. No chest pain Review of Systems General: No Chills, No Night Sweats; Fatigue, Malaise; No Appetite, No Other HEENT: No Head Aches, No Visual Changes, No Eye Pain, No Ear Pain, No Dysphasia, No Sinus Congestion, No Post Nasal Drip, No Sore Throat, No Other Pulmonary: Dyspnea; No Cough, No Pleuritic Chest Pain, No Other Cardiovascular: No: Chest Pain, Palpitations, Orthopnea, Paroxysmal Noc. Dyspnea, Edema, Lt Headedness, Other Focused Exam Time of Focused Exam: 17:49 Objective-Cardiology Exam Last Set of Vital Signs Vital Signs 10/03/20 10/06/20 10/07/20 10/07/20 10:19 22:13 08:00 10:46 Temp 36.5 Pulse 88 Resp 20 B/P (MAP) 154/71 (98) Pulse Ox 93 O2 Delivery Room Air O2 Flow Rate 1.00 FiO2 60 Capillary Refill : Less Than 3 SecondsLess Than 3 Seconds I&O Intake and Output 10/07/20 00:00 Output Total 3200 ml Balance -3200 ml Output Urine Total 1700 ml Gastric Drainage Total 1500 ml # Voids 1 General: Alert, Oriented X3, Cooperative HEENT: Atraumatic, PERRLA Neck: Supple, No JVD Lungs: Clear to Auscultation, Normal Air Movement Heart: Normal S1, Normal S2, Other (tachycardia) Abdomen: No Tenderness, Other (diminished bowel sounds) Extremities: No Clubbing, No Cyanosis Skin: No Rashes Neuro: Normal Speech, Sensation Intact Psych/Mental Status: Mental Status NL, Mood NL Results Lab Laboratory Tests 10/07/20 05:20 A/P-Cardiology Admission Diagnosis Sinus tachycardia Sepsis Colon cancer Shortness of breath Assessment/Plan Sinus tachycardia, better at this time, continue to monitor Wound Dehiscence with fistula, had a wound VAC placed, managed and followed by Dr. Ramos History of colon cancer status post right colon resection, followed and managed by Dr. Ramos Anemia, continue to monitor H&H Coronary artery disease, history of CABG x3 done in 2007. Last cardiac catheterization was done on July 11, 2017 showing patent stent in the proximal LAD, small vessel disease distally, known occluded ZELAYA, patent vein graft to diagonal artery with good flow distally, patent vein graft to the right coronary artery with good flow distally, 50 percent ostial proximal left main stenosis, nondominant circumflex artery. Conservative management is recommended. Continue to monitor COPD, shortness of breath, followed and managed by Dr. Smith Obstructive sleep apnea, maintained on C Pap H/o episode of confusion with right sided weakness, had episode of tingling in his fingers and dizziness after micturition probably vasovagal episode, questionable history of TIA. Labile hypertension, monitor blood pressure History of orthostatic hypotension Hyperlipidemia - unable to tolerate statin dose any higher than 5mg, continue to monitor lipids Diabetes mellitus, followed and managed by primary care physician Carotid stenosis, mild nonobstructive disease bilaterally. Continue to monitor History of chronic compensated left ventricular diastolic dysfunction, echocardiogram done in April 2019 showing ejection fraction 50-55 percent, grade 2 diastolic dysfunction, left atrium 4.6 cm, aortic valve trivial regurgitation, PA pressure 35-40 mmHg. Continue to monitor History of tobaccoism, patient has been abstinent from smoking since 2007. History of parathyroidectomy done in in November 2018. NANYC ARREOLA MD Oct 07, 2020 12:13
[2020-10-07] MEDS ORDERED: NS IV 500 ML 500 ML ONE (14:56)
[2020-10-07 22:35] LABS: HEMOGLOBIN 8.6 g/dL (13.3-17.7)
[2020-10-08] VITALS (7 sets, daily range): BP systolic 143–186; BP diastolic 73–99
[2020-10-08] MEDS: PIPERACILLIN/TAZOBACTAM (BULK) 4.5 GM in NS (IVPB) 100 ML IV SCH ×3 (01:14→16:13)
[2020-10-08] MEDS: RT-ALBUTEROL/IPRATROPIUM 3 ML (DUONEB) VIAL INH SCH ×6 (02:06→22:16)
[2020-10-08] MEDS: morphine INJ 4 MG/ML 1 ML (VIAL/SYRINGE) IVP PRN ×2 (02:55→11:18)
[2020-10-08] MEDS: POTASSIUM CHLORIDE INJ 20 MEQ in D5 LR IV SOLUTION 1,000 ML IV SCH ×2 (05:29→16:11)
[2020-10-08] MEDS: LEVOTHYROXINE 25 MCG (LEVOTHROID) TAB PO SCH (05:30)
[2020-10-08 06:02] LABS: HEMOGLOBIN 8.1 g/dL (13.3-17.7); MEAN PLATELET VOLUME 9.3 fL (9.0-12.2); WHITE BLOOD COUNT 9.1 10^3/uL (4.3-11.0)
[2020-10-08 06:22] LABS: BUN/CREATININE RATIO 9; CARBON DIOXIDE 23 MMOL/L (21-32); CHLORIDE 103 MMOL/L (98-107); CREATININE SERUM 0.98 MG/DL (0.60-1.30); GFR ESTIMATED > 60; POTASSIUM 3.1 MMOL/L (3.6-5.0); SODIUM 143 MMOL/L (135-145)
[2020-10-08 06:34] LABS: GLUCOSE 112 MG/DL (70-105)
[2020-10-08] MEDS: inSUlin ASPART (NovoLOG) 1 UNIT/0.01 ML (CHARGE PER UNIT) SC SCH ×3 (06:37→16:11)
--- NOTE | 2020-10-08 07:54 | Progress Note - Surgery ---
ALICIA BERMAN MED STUDENT 10/08/20 0754: Subjective Date Seen by a Provider: Oct 08, 2020 Time Seen by a Provider: 07:30 Subjective/Events-last exam Pt is awake and sitting up in chair this morning. States his pain is well controlled, maybe a 3 today towards the top of his incision. No radiation. Has not had anything to eat or drink today. Only wetting his mouth. Nurse states still no BM or flatus. Using IS. NG tube in place w/ about 500mL. Wound vac in place. Pt went on PT 3x yesterday. Is not currently chewing gum. Got a unit of blood yesterday ordered by Dr. yAala. Review of Systems General: No Chills, No Fatigue HEENT: No Head Aches, No Visual Changes Pulmonary: No Dyspnea; Cough (Getting better) Cardiovascular: No: Chest Pain, Palpitations Gastrointestinal: Abdominal Pain; No: Nausea, Vomiting Genitourinary: No Dysuria Musculoskeletal: No: leg pain Focused Exam Time of Focused Exam: 17:49 Objective Exam Vital Signs Date Time Temp Pulse Resp B/P (MAP) Pulse Ox O2 Delivery O2 Flow Rate FiO2 10/08/20 07:09 90 Nasal Cannula 1.00 10/08/20 03:41 37.0 102 19 172/81 (111) 90 Nasal Cannula 2.00 10/08/20 02:06 84 Room Air 10/08/20 01:00 92 10/08/20 00:00 37.0 97 19 143/73 (96) 93 Room Air 10/07/20 22:09 92 Room Air 10/07/20 19:59 36.8 92 20 167/75 (105) 95 Room Air 10/07/20 19:30 Room Air 10/07/20 19:02 116 10/07/20 18:13 94 Room Air 10/07/20 15:48 36.7 92 19 152/73 (99) 93 Room Air 10/07/20 15:29 36.4 87 20 152/72 96 Room Air 10/07/20 15:06 36.5 93 20 136/64 98 Room Air 10/07/20 14:30 93 Room Air 10/07/20 12:40 86 10/07/20 12:00 36.9 86 20 152/70 (97) 92 Room Air 10/07/20 10:46 93 Room Air 10/07/20 08:00 36.5 88 20 154/71 (98) 91 Room Air 10/07/20 08:00 Nasal Cannula I & O 10/08/20 07:00 Intake Total 1200 ml Output Total 2925 ml Balance -1725 ml Capillary Refill : Less Than 3 SecondsLess Than 3 Seconds General Appearance: No Apparent Distress HEENT: Other (NG tube in place) Respiratory: Lungs Clear, Normal Breath Sounds, No Accessory Muscle Use, No Respiratory Distress Cardiovascular: Regular Rate, Rhythm, No Murmur Peripheral Pulses: 2+ Radial Pulses (R), 2+ Radial Pulses (L) Gastrointestinal: soft, abnormal bowel sounds (hypoactive), distended (Slight distention ), tenderness (minimal at incision), other (Abdominal incision with wound vac in place. Draining, no leaking, vaccum intact. Minimal erythema at edges. ) Extremity: Non Tender, No Calf Tenderness, No Pedal Edema Neurologic/Psychiatric: Alert, Oriented x3 Skin: Normal Color, Warm/Dry Lymphatic: No Adenopathy Results Lab Laboratory Tests 10/07/20 11:48: Glucometer 84 10/07/20 17:41: Glucometer 84 10/07/20 22:19: Hemoglobin 8.6L, Hematocrit 28L 10/07/20 23:32: Glucometer 111H 10/08/20 05:42: White Blood Count 9.1, Red Blood Count 3.30L, Hemoglobin 8.1L, Hematocrit 27L, Mean Corpuscular Volume 80, Mean Corpuscular Hemoglobin 25, Mean Corpuscular Hemoglobin Concent 31L, Red Cell Distribution Width 15.7H, Platelet Count 396, Mean Platelet Volume 9.3, Sodium Level 143, Potassium Level 3.1L, Chloride Level 103, Carbon Dioxide Level 23, Anion Gap 17H, Blood Urea Nitrogen 9, Creatinine 0.98, Estimat Glomerular Filtration Rate > 60, BUN/Creatinine Ratio 9, Glucose Level 112H, Calcium Level 8.0L Microbiology 09/30/20 Gram Stain - Final, Complete 09/30/20 Sputum Culture - Final, Complete YEAST 09/28/20 Blood Culture - Final, Complete No growth 09/28/20 Urine Culture - Final, Complete NO GROWTH Assessment/Plan Assessment/Plan Assessment/Plan 1. Metastatic Colon CA s/p SBR and washout -Continue Pain meds, IS, PT, NPO, NG tube, ABX -Pt not currently chewing gum today -Continue to have patient move, possibly get denture friendly gum 2. Anemia -Stable today, improved to 8.1 after unit of blood -Continue to monitor OSMIN RAMOS DO 10/08/20 1611: Subjective Time Seen by a Provider: 13:59 Subjective/Events-last exam Pt seen and examined, denies nausea and vomiting. Pt states he is passing gas now. Review of Systems General: No Chills; Fatigue HEENT: No Head Aches, No Visual Changes Pulmonary: No Dyspnea; Cough (Getting better) Cardiovascular: No: Chest Pain, Palpitations Gastrointestinal: Abdominal Pain; No: Nausea, Vomiting Objective Exam General Appearance: No Apparent Distress HEENT: Other (NG tube in place) Respiratory: Lungs Clear, Normal Breath Sounds, No Accessory Muscle Use Cardiovascular: Regular Rate, Rhythm, No Murmur Gastrointestinal: soft, abnormal bowel sounds (hypoactive), distended (Slight distention ), tenderness (minimal at incision), other (Abdominal incision with wound vac in place. Draining, no leaking, vaccum intact. Minimal erythema at edges. ) Assessment/Plan Assessment/Plan Assessment/Plan 1. Metastatic Colon CA s/p SBR and washout -Continue Pain meds, IS, PT, will clamp NG tube and start sips of clear -Encourage patient to ambulate as much as possible, possibly get denture friendly gum 2. Anemia -Stable today, improved to 8.1 after unit of blood -Continue to monitor Supervisory-Addendum Brief Verification & Attestation Participated in pt care: history, MDM, physical Personally performed: exam, history, MDM Care discussed with: Medical Student Procedures: n/a Verification and Attestation of Medical Student E/M Service A medical student performed and documented this service. I then reviewed and verified all information documented by the medical student and made modifications to such information, when appropriate. I personally performed a physical exam, medical decision making and then discussed any differences between the notes and made revisions as necessary to create one note. Osmin Ramos , 10/08/20 , 16:11 ALICIA BERMAN MED STUDENT Oct 08, 2020 07:54 OSMIN RAMOS DO Oct 08, 2020 16:11
[2020-10-08] MEDS ORDERED: IRON SUCROSE 200 MG/10 ML (VENOFER) VIAL IV ONE (08:30)
--- NOTE | 2020-10-08 08:46 | Progress Note - Hospitalist ---
JOJO GRIFFIN MED STUDENT 10/08/20 0846: Subjective HPI/CC On Admission Date Seen by Provider: Oct 08, 2020 Time Seen by Provider: 08:15 Fwup wound dehiscence with fistula, S/P right colon resection for colon cancer, bowel resection for bowel obstruction, septic shock. Subjective/Events-last exam Pt resting comfortably in bed; pain controlled. Reports difficulty falling asleep last night and fatigue. He denies BM, flatus, N/V, shortness of breath. Focused Exam Time of Focused Exam: 17:49 Objective Exam Vital Signs Vital Signs Date Time Temp Pulse Resp B/P (MAP) Pulse Ox O2 Delivery O2 Flow Rate FiO2 10/08/20 08:00 37.0 105 20 148/99 (115) 94 Nasal Cannula 2.00 10/03/20 10:19 60 Capillary Refill : Less Than 3 SecondsLess Than 3 Seconds General Appearance: No Apparent Distress, WD/WN HEENT: No Moist Mucous Membranes Respiratory: Chest Non Tender, Lungs Clear, Normal Breath Sounds, No Accessory Muscle Use, No Respiratory Distress Cardiovascular: No Gallop, No Murmur, Normal Peripheral Pulses, Tachycardia Gastrointestinal: Soft, Abnormal Bowel Sounds (distended), Tenderness (ttp RUQ), Other (wound vac in place; c/d/i. NGT in place.) Extremity: No Calf Tenderness, No Pedal Edema, Calf Tenderness Neurologic/Psychiatric: Alert, Oriented x3, Normal Mood/Affect (reports feeling down and agitated at times) Results/Procedures Lab Laboratory Tests 10/07/20 22:19 10/08/20 05:42 Patient resulted labs reviewed. Assessment/Plan Assessment and Plan Assess & Plan/Chief Complaint 1. Severe Septic Shock due to Wound Dehiscence with fistula from recent right sided colectomy for colon cancer--S/P Exp Lap with bowel obstruction and bowel resection x2--and subsequent surgery for abdominal cleanout and wound vac placement, wound vac in place, continue zosyn, no longer on eraxis, NG tube back in place-- imaging yesterday showed likely post-op ileus 2. Hypertension--increase metoprolol dose 100mg BID 3. DMII--on accuchecks with SSI 4. COPD--on duoneb routinely 5. Weakness--PT started - working on marching in place, ambulates in room to bathroom. Dietary consult for TPN. 6. Hypokalemia--replace potassium via IV 40 mEq 7. Anemia -- Venofer ordered 8. MDD -- Restart Sertraline as taken at home; Trazodone PRN Diagnosis/Problems Diagnosis/Problems (1) COPD (chronic obstructive pulmonary disease) Status: Chronic (2) Wound dehiscence Status: Acute (3) Hypertension Status: Chronic (4) Status post right hemicolectomy Status: Acute (5) Diabetes (6) MDD (major depressive disorder) Status: Chronic YENI RUVALCABA DO 10/08/20 1800: Supervisory-Addendum Brief Verification & Attestation Participated in pt care: history, physical Personally performed: exam, history, supervision of care Care discussed with: Medical Student Procedures: n/a Patient evaluated and agree with above plan of care. JOJO GRIFFIN MED STUDENT Oct 08, 2020 08:46 YENI RUVALCABA DO Oct 08, 2020 18:00
[2020-10-08] MEDS: POTASSIUM CL 10MEQ/50ML IVPB 50 ML IV SCH ×4 (08:47→12:21)
[2020-10-08] MEDS: ANIDULAFUNGIN INJECTION 100 MG in NS (IVPB) 100 ML IV SCH (08:51)
[2020-10-08] MEDS: LOSARTAN 50 MG (COZAAR) TAB PO SCH (09:02)
[2020-10-08] MEDS: ENOXAPARIN 40 MG/0.4 ML (LOVENOX) SYR SC SCH (09:02)
[2020-10-08] MEDS: HYDROcodone/APAP 7.5 MG/325 MG (LORTAB, LORCET PLUS) TABLET PO PRN (09:02)
[2020-10-08 09:03] LABS: MAGNESIUM 1.9 MG/DL (1.6-2.4); PHOSPHORUS 2.8 MG/DL (2.3-4.7)
[2020-10-08] MEDS: PANTOPRAZOLE 40 MG (PROTONIX) VIAL IV SCH (09:03)
[2020-10-08] MEDS: meTOprolol TARTRATE 50 MG (LOPRESSOR) TAB PO SCH ×2 (09:03→20:14)
--- NOTE | 2020-10-08 10:14 | Progress Note - Cardiology ---
Cardiology SOAP Progress Note Subjective: No cp or palp or syncope No shortness of breath at rest Gen malaise present No n/v/d Objective: I&O/Vital Signs 10/08/20 10/08/20 10/08/20 10/08/20 00:00 01:00 02:06 03:41 Temp 37.0 37.0 Pulse 97 92 102 Resp 19 19 B/P (MAP) 143/73 (96) 172/81 (111) Pulse Ox 93 84 90 O2 Delivery Room Air Room Air Nasal Cannula O2 Flow Rate 2.00 10/08/20 10/08/20 10/08/20 06:40 07:09 08:00 Temp 37.0 Pulse 89 105 Resp 20 B/P (MAP) 148/99 (115) Pulse Ox 90 94 O2 Delivery Nasal Cannula Nasal Cannula O2 Flow Rate 1.00 2.00 10/08/20 00:00 Intake Total 0 ml Output Total 2275 ml Balance -2275 ml Weight (Pounds): 238 Weight (Ounces): 5.0 Weight (Calculated Kilograms): [id number] Constitutional: AAO x 3 (oriented to self and place ) Respiratory: other (fair air entry; poor inspiratory effort) Cardiovascular: No JVD; tachycardia, S1 and S2 Gastrointestional: other (not palpated d/t recent surgery ) Extremities: other (mod bilat LE swelling) Neurologic/Psychiatric: grossly intact (moving extremities) Skin: pallor; No rash on exposed areas, No ulcerations on exposed areas Results/Procedures: Labs Laboratory Tests 10/07/20 11:48: Glucometer 84 10/07/20 17:41: Glucometer 84 10/07/20 22:19: Hemoglobin 8.6L, Hematocrit 28L 10/07/20 23:32: Glucometer 111H 10/08/20 05:42: White Blood Count 9.1, Red Blood Count 3.30L, Hemoglobin 8.1L, Hematocrit 27L, Mean Corpuscular Volume 80, Mean Corpuscular Hemoglobin 25, Mean Corpuscular Hemoglobin Concent 31L, Red Cell Distribution Width 15.7H, Platelet Count 396, Mean Platelet Volume 9.3, Sodium Level 143, Potassium Level 3.1L, Chloride Level 103, Carbon Dioxide Level 23, Anion Gap 17H, Blood Urea Nitrogen 9, Creatinine 0 .98, Estimat Glomerular Filtration Rate > 60, BUN/Creatinine Ratio 9, Glucose Level 112H, Calcium Level 8.0L 10/08/20 05:45: Phosphorus Level 2.8, Magnesium Level 1.9, Triglycerides Level 159H Microbiology 09/30/20 Gram Stain - Final, Complete 09/30/20 Sputum Culture - Final, Complete YEAST 09/28/20 Blood Culture - Final, Complete No growth 09/28/20 Urine Culture - Final, Complete NO GROWTH A/P: Assessment: Wound dehiscence with fistula - wound vac placed - management per Dr. Ramos Sepsis - management per Medical services S/P right colon resection for colon cancer Sinus tachycardia - improved with BB tx Post op anemia - management per medical/surgical services Coronary artery disease, history of CABG x3 done in 2007. - Last cardiac catheterization was done on July 11, [address] Golden showing patent stent in the proximal LAD, small vessel disease distally, known occluded ZELAYA, patent vein graft to diagonal artery with good flow distally, patent vein graft to the right coronary artery with good flow distally, 50 percent ostial proximal left main stenosis, nondominant circumflex artery. COPD Obstructive sleep apnea, maintained on C Pap Questionable history of TIA. Labile hypertension History of orthostatic hypotension Hyperlipidemia - tolerates only very low dose statin Diabetes mellitus Carotid stenosis, mild nonobstructive disease bilaterally, monitored by Dr Golden History of chronic compensated left ventricular diastolic dysfunction, echocardiogram done in April 2019 showing ejection fraction 50-55 percent, grade 2 diastolic dysfunction, left atrium 4.6 cm, aortic valve trivial regurgit ation, PA pressure 35-40 mmHg History of tobaccoism, patient has been abstinent from smoking since 2007. History of parathyroidectomy done in in November 2018. Plan: Cardiac status appears to be clinically stable Continue current regimen Monitor labs HANNAH GARRETT MD FACP FAC CCDS Oct 08, 2020 10:14
--- NOTE | 2020-10-08 15:17 | Physical Therapy Daily Note ---
PT Daily Note-Current Subjective Pt laying supine in bed upon arrival. Pt agrees to PT. Pain Location: No Pain Reported Mental Status Patient Orientation: Person, Place, Situation Attachments: NG Tube, Oxygen, IV Transfers SCALE: Activities may be completed with or without assistive devices. 2-Pdrgzwmknr-chckuqg completes the activity by him/herself with no assistance from a helper. 5-Set-up or Clean-up Assistance-helper sets up or cleans up; patient completes activity. [place] assists only prior to or following the activity. 4-Supervision or Touching Assistance-helper provides verbal cues and/or touching/steadying and/or contact guard assistance as patient completes activity. Assistance may be provided throughout the activity or intermittently. 3-Partial/Moderate Assistance-helper does LESS THAN HALF the effort. [place] lifts, holds or supports trunk or limbs, but provides less than half the effort. 2-Substantial/Maximal Assistance-helper does MORE THAN HALF the effort. [place] lifts or holds trunk or limbs and provides more than half the effort. 6-Algtzkpck-cxpcev does ALL the effort. Patient does none of the effort to complete the activity. Or, the assistance of 2 or more helpers is required for the patient to complete the activity. If activity was not attempted, code reason: 7-Patient Refused. 9-Not Applicable-not attempted and the patient did not perform the activity before the current illness, exacerbation or injury. 10-Not Attempted due to Environmental Limitations-(lack of equipment, weather restraints, etc.). 88-Not Attempted due to Medical Conditions or Safety Concerns. Sit to Lying (QC): 3 Sit to Stand (QC): 4 Toilet Transfer (QC): 4 Weight Bearing Full Weight Bearing Full Weight Bearing Gait Training Does the Patient Walk?: Yes Distance: 150' Walk 10 feet (QC): 4 Walk 50 ft with 2 Turns(QC): 4 Walk 150 ft (QC): 4 Gait Persons Needed: 1 Gait Assistive Device: FWW Treatments Pt stands and Nurse disconnects NG tube & O2 as pt only needs O2 at night. Pt amb. in hallway then returns to room to use BR. Pt TF to recliner at end of tx. All needs met, call light in hand. Assessment Current Status: Good Progress PT is fatigued today but pushes self to improve. PT Mcfp Goals Mcfp Goals PT Dentist Private Practice Goals Time Frame: Oct 08, 2020 Roll Left & Right (QC): 3 Sit to Lying (QC): 3 Lying-Sitting on Side/Bed(QC): 3 Sit to Stand (QC): 3 Chair/Tdd-an-Bbgyq Xfer(QC): 3 Walk 10 feet (QC): 3 PT Plan Problem List Problem List: Activity Tolerance Treatment/Plan Treatment Plan: Continue Plan of Care Treatment Plan: Bed Mobility, Education, Functional Activity Jossy, Functional Strength, Gait, Safety, Therapeutic Exercise, Transfers Treatment Duration: Oct 08, 2020 Frequency: 6 times per week Estimated Hrs Per Day: .25 hour per day Patient and/or Family Agrees t: Yes Safety Risks/Education Patient Education: Gait Training Teaching Recipient: Patient Teaching Methods: Discussion Response to Teaching: Verbalize Understanding Time/GCodes Time In: 1315 Time Out: 1340 Total Billed Treatment Time: 25 Total Billed Treatment 1, GT (15m) & FA (10m) RACHNA BEE PTA Oct 08, 2020 15:17
[2020-10-08] MEDS: ONDANSETRON 4 MG/2 ML (SDV) Z0FRAN IVP PRN (16:47)
[2020-10-08] MEDS: SERTRALINE 50 MG (ZOLOFT) TABLET PO SCH (20:14)
[2020-10-08] MEDS: traZODone 50 MG (DESYREL) TAB PO PRN (21:38)
[2020-10-09] MEDS: inSUlin ASPART (NovoLOG) 1 UNIT/0.01 ML (CHARGE PER UNIT) SC SCH ×4 (00:15→17:35)
[2020-10-09] MEDS: POTASSIUM CHLORIDE INJ 20 MEQ in D5 LR IV SOLUTION 1,000 ML IV SCH ×3 (00:19→18:21)
[2020-10-09] MEDS: RT-ALBUTEROL/IPRATROPIUM 3 ML (DUONEB) VIAL INH SCH ×6 (02:01→22:12)
[2020-10-09] MEDS: PIPERACILLIN/TAZOBACTAM (BULK) 4.5 GM in NS (IVPB) 100 ML IV SCH (03:30)
[2020-10-09 03:59] VITALS: BP 170/70
[2020-10-09 04:59] LABS: MAGNESIUM 1.7 MG/DL (1.6-2.4); PHOSPHORUS 2.9 MG/DL (2.3-4.7)
[2020-10-09 05:01] LABS: ALANINE AMINOTRANSFERASE 19 U/L (0-55); ALBUMIN 2.7 GM/DL (3.2-4.5); ALKALINE PHOSPHATASE 74 U/L (40-136); BILIRUBIN,TOTAL 0.5 MG/DL (0.1-1.0); BUN/CREATININE RATIO 5; CALCIUM 8.2 MG/DL (8.5-10.1); CARBON DIOXIDE 23 MMOL/L (21-32); CHLORIDE 104 MMOL/L (98-107); CREATININE SERUM 1.07 MG/DL (0.60-1.30); GFR ESTIMATED > 60; GLUCOSE 133 MG/DL (70-105); POTASSIUM 3.5 MMOL/L (3.6-5.0); SODIUM 140 MMOL/L (135-145); TOTAL PROTEIN 6.8 GM/DL (6.4-8.2)
[2020-10-09] MEDS: LEVOTHYROXINE 25 MCG (LEVOTHROID) TAB PO SCH (06:09)
--- NOTE | 2020-10-09 07:45 | Progress Note - Surgery ---
ALICIA BERMAN MED STUDENT 10/09/20 0745: Subjective Date Seen by a Provider: Oct 09, 2020 Time Seen by a Provider: 07:10 Subjective/Events-last exam Pt is awake and alert this morning sitting up on chair and on phone with . States that he has 3 BMs, some pain in rectal area, but no blood in stool. He has also passed gas numerous times. States that he has drank liquids and had some strawberry jello, states that he has felt nauseas a few times w/ drinking, no vomiting, he feels it might be more of a psychological issue. Still ambulating and using IS. States his pain this morning is well controlled. Maybe about a 3, no radiation. Has no further concerns or questions other than wanting to know when he can go home. Wound vac and NG tube in place. Review of Systems General: No Chills, No Malaise HEENT: No Head Aches, No Visual Changes Pulmonary: No Dyspnea; Cough Cardiovascular: No: Chest Pain, Palpitations Gastrointestinal: Nausea (Sometimes with drinking), Abdominal Pain; No: Vomiting Genitourinary: No Dysuria, No Hematuria Musculoskeletal: No: leg pain Focused Exam Time of Focused Exam: 17:49 Objective Exam Vital Signs Date Time Temp Pulse Resp B/P (MAP) Pulse Ox O2 Delivery O2 Flow Rate FiO2 10/09/20 07:04 96 Nasal Cannula 1.00 10/09/20 03:59 36.6 85 20 170/70 (103) 94 Nasal Cannula 1.00 10/09/20 02:01 90 Nasal Cannula 1.00 10/09/20 01:00 85 10/08/20 23:59 37.0 89 18 163/77 (105) 91 Room Air 10/08/20 22:16 87 Room Air 10/08/20 20:50 Room Air 10/08/20 19:33 37.0 89 18 177/86 (116) 90 Room Air 10/08/20 19:00 100 10/08/20 18:04 90 Room Air 10/08/20 15:57 36.6 33 18 176/81 (112) 91 Room Air 10/08/20 14:31 94 Room Air 10/08/20 12:37 99 10/08/20 12:00 36.6 94 20 186/88 (120) 92 Room Air 10/08/20 10:40 94 Nasal Cannula 1.00 10/08/20 08:00 Room Air 10/08/20 08:00 37.0 105 20 148/99 (115) 94 Nasal Cannula 2.00 I & O 10/09/20 07:00 Intake Total 2740 ml Output Total 2835 ml Balance -95 ml Capillary Refill : Less Than 3 SecondsLess Than 3 Seconds General Appearance: No Apparent Distress HEENT: Other (NG tube in place) Respiratory: Lungs Clear, Normal Breath Sounds, No Accessory Muscle Use Cardiovascular: Regular Rate, Rhythm, No Murmur Peripheral Pulses: 2+ Radial Pulses (R), 2+ Radial Pulses (L) Gastrointestinal: normal bowel sounds, soft, distended (Slight distention ), tenderness (minimal at incision), other (Abdominal incision with wound vac in place. Draining, no leaking, vaccum intact. Minimal erythema at edges. ) Extremity: No Calf Tenderness, No Pedal Edema Neurologic/Psychiatric: Alert, Oriented x3, Normal Mood/Affect (reports feeling down and agitated at times) Skin: Normal Color, Warm/Dry Lymphatic: No Adenopathy Results Lab Laboratory Tests 10/08/20 11:28: Glucometer 121H 10/08/20 17:01: Glucometer 123H 10/08/20 23:37: Glucometer 146H 10/09/20 04:28: Sodium Level 140, Potassium Level 3.5L, Chloride Level 104, Carbon Dioxide Level 23, Anion Gap 13, Blood Urea Nitrogen 5L, Creatinine 1.07, Estimat Glomerular Filtration Rate > 60, BUN/Creatinine Ratio 5, Glucose Level 133H, Calcium Level 8.2L, Corrected Calcium 9.2, Phosphorus Level 2.9, Magnesium Level 1.7, Total Bilirubin 0.5, Aspartate Amino Transf (AST/SGOT) 33, Alanine Aminotransferase (ALT/SGPT) 19, Alkaline Phosphatase 74, Total Protein 6.8, Albumin 2.7L 10/09/20 05:30: Glucometer 119H Microbiology 09/30/20 Gram Stain - Final, Complete 09/30/20 Sputum Culture - Final, Complete YEAST 09/28/20 Blood Culture - Final, Complete No growth 09/28/20 Urine Culture - Final, Complete NO GROWTH Assessment/Plan Assessment/Plan Assessment/Plan 1. Metastatic Colon CA s/p SBR and washout -Continue Pain meds, IS, PT, Possibly remove NG tube today if pt continues to tolerate liquids. -Pt having bowel movements and passing gas -Encourage pt to continue to drink liquids. 2. Anemia -No new CBC today -Pt appears stable and no evidence of bleeding or anemia -CBC if anything changes OSMIN RAMOS DO 10/09/20 1244: Subjective Time Seen by a Provider: 11:52 Subjective/Events-last exam Pt seen and examined, lying in bed. States he has had 5 BM's. Nurse states she hooked NGT back up and didn't get much out, but it did making him nauseous. Tolerating liquids. Review of Systems General: No Chills; Fatigue Pulmonary: No Dyspnea; Cough Gastrointestinal: Nausea (Sometimes with drinking), Abdominal Pain; No: Vomiting Musculoskeletal: leg pain Objective Exam General Appearance: No Apparent Distress, Obese HEENT: Other (NG tube in place) Respiratory: Lungs Clear, Normal Breath Sounds, No Accessory Muscle Use Cardiovascular: Regular Rate, Rhythm, No Murmur Gastrointestinal: soft, distended (Slight distention and firm; appears slighly more than yesterday), tenderness (minimal at incision), other (Abdominal incision with wound vac in place. Draining, no leaking, vaccum intact. Minimal erythema at edges. ) Extremity: No Calf Tenderness Assessment/Plan Assessment/Plan Assessment/Plan 1. Metastatic Colon CA s/p SBR and washout -Continue Pain meds as needed, encourage ambulation and IS, PT, will d/c NG tube since pt is having bowel movements and passing gas -Encourage pt to continue to drink liquids and will add ensure clear 2. Anemia-continue to monitor Supervisory-Addendum Brief Verification & Attestation Participated in pt care: history, MDM, physical Personally performed: exam, history, MDM Care discussed with: Medical Student Procedures: n/a Verification and Attestation of Medical Student E/M Service A medical student performed and documented this service. I then reviewed and verified all information documented by the medical student and made modifications to such information, when appropriate. I personally performed a physical exam, medical decision making and then discussed any differences between the notes and made revisions as necessary to create one note. Osmin Ramos , 10/09/20 , 12:44 ALICIA BERMAN MED STUDENT Oct 09, 2020 07:45 OSMIN RAMOS DO Oct 09, 2020 12:44
[2020-10-09 08:00] VITALS: BP 173/92
[2020-10-09] MEDS: LOSARTAN 50 MG (COZAAR) TAB PO SCH (08:09)
[2020-10-09] MEDS: PANTOPRAZOLE 40 MG (PROTONIX) TAB PO SCH ×2 (08:09→09:43)
[2020-10-09] MEDS: meTOprolol TARTRATE 50 MG (LOPRESSOR) TAB PO SCH ×3 (08:10→20:41)
[2020-10-09] MEDS: HYDROcodone/APAP 7.5 MG/325 MG (LORTAB, LORCET PLUS) TABLET PO PRN ×2 (08:10→11:39)
[2020-10-09] MEDS: ANIDULAFUNGIN INJECTION 100 MG in NS (IVPB) 100 ML IV SCH (08:10)
[2020-10-09] MEDS: ENOXAPARIN 40 MG/0.4 ML (LOVENOX) SYR SC SCH (08:11)
[2020-10-09] MEDS: morphine INJ 4 MG/ML 1 ML (VIAL/SYRINGE) IVP PRN (08:21)
[2020-10-09] MEDS: ONDANSETRON 4 MG/2 ML (SDV) Z0FRAN IVP PRN ×2 (08:21→13:42)
--- NOTE | 2020-10-09 08:27 | Progress Note - Hospitalist ---
JOJO GRIFFIN MED STUDENT 10/09/20 0827: Subjective HPI/CC On Admission Date Seen by Provider: Oct 09, 2020 Time Seen by Provider: 08:10 Fwup wound dehiscence with fistula, S/P right colon resection for colon cancer, bowel resection for bowel obstruction, septic shock. Subjective/Events-last exam Pt alert, sitting up in bed. He reports 5 non-bloody, loose BM's since yesterday. He had some sharp rectal pain with defecation. Pt had episode of dry heaving with green stomach acid spit up while I was in room and reports increased nausea. Focused Exam Time of Focused Exam: 17:49 Objective Exam Vital Signs Vital Signs Date Time Temp Pulse Resp B/P (MAP) Pulse Ox O2 Delivery O2 Flow Rate FiO2 10/09/20 08:00 36.3 100 20 173/92 (119) 95 Nasal Cannula 1.50 10/03/20 10:19 60 Capillary Refill : Less Than 3 SecondsLess Than 3 Seconds General Appearance: No Apparent Distress, WD/WN Respiratory: Chest Non Tender, Lungs Clear, Normal Breath Sounds, No Accessory Muscle Use, No Respiratory Distress Cardiovascular: Regular Rate, Rhythm, No Edema, Normal Peripheral Pulses Gastrointestinal: Normal Bowel Sounds, Non Tender, Soft, Other (wound vac in place. NGT in place) Extremity: No Calf Tenderness, No Pedal Edema Neurologic/Psychiatric: Alert, Oriented x3, Normal Mood/Affect Results/Procedures Lab Laboratory Tests 10/09/20 04:28 Patient resulted labs reviewed. Assessment/Plan Assessment and Plan Assess & Plan/Chief Complaint 1. Severe Septic Shock due to Wound Dehiscence with fistula from recent right sided colectomy for colon cancer--S/P Exp Lap with bowel obstruction and bowel resection x2--and subsequent surgery for abdominal cleanout and wound vac placement, wound vac in place, continue zosyn, no longer on eraxis, NG tube back in place but bowels now moving; consider removal of NGT 2. Hypertension--increase Losartan 100 mg daily and add 5 mg Amlodipine daily 3. DMII--on accuchecks with SSI 4. COPD--on duoneb routinely 5. Weakness--PT started - working on marching in place, ambulates in room to bathroom. Discussed possible admission to rehab once recovered 6. Hypokalemia--replace potassium via IV 20 mEq today 7. Anemia -- awaiting CBC results 8. MDD -- Restart Sertraline as taken at home; Trazodone PRN 9. Nausea -- 4 mg Zofran Diagnosis/Problems Diagnosis/Problems (1) COPD (chronic obstructive pulmonary disease) Status: Chronic (2) Wound dehiscence Status: Acute (3) Hypertension Status: Chronic (4) Status post right hemicolectomy Status: Acute (5) Diabetes (6) MDD (major depressive disorder) Status: Chronic YENI RUVALCABA DO 10/09/20 1726: Supervisory-Addendum Brief Verification & Attestation Participated in pt care: history, physical Personally performed: exam, history, supervision of care Care discussed with: Medical Student Procedures: n/a Patient seen and having BMs but nausea this morning. Agree with above plan. NG tube removal per surgery. JOJO GRIFFIN MED STUDENT Oct 09, 2020 08:27 YENI RUVALCABA DO Oct 09, 2020 17:26
[2020-10-09] MEDS ORDERED: ALTEPLASE 2 MG (CATHFLO) IV ONE (08:30)
[2020-10-09] MEDS ORDERED: WATER (STERILE) FOR INJECTION 10 ML ONE (08:37)
[2020-10-09 09:35] LABS: HEMOGLOBIN 8.8 g/dL (13.3-17.7); MEAN PLATELET VOLUME 9.3 fL (9.0-12.2); WHITE BLOOD COUNT 10.3 10^3/uL (4.3-11.0)
[2020-10-09] MEDS: LOSARTAN 100 MG (COZAAR) TABLET PO SCH (09:46)
[2020-10-09] MEDS: amLODIPine 5 MG (NORVASC) TAB PO SCH (09:46)
[2020-10-09] MEDS: POTASSIUM CL 10MEQ/50ML IVPB 50 ML IV SCH ×2 (09:47→10:58)
[2020-10-09] MEDS ORDERED: NS IV 500 ML 500 ML ONE (09:50)
--- NOTE | 2020-10-09 10:26 | Physical Therapy Daily Note ---
PT Daily Note-Current Subjective Patient reports fatigue but agrees to PT. Mental Status Patient Orientation: Normal For Age Attachments: Central Line, Oxygen abdominal wound vac Transfers SCALE: Activities may be completed with or without assistive devices. 3-Jqprptcmzd-ddrlwqw completes the activity by him/herself with no assistance from a helper. 5-Set-up or Clean-up Assistance-helper sets up or cleans up; patient completes activity. [place] assists only prior to or following the activity. 4-Supervision or Touching Assistance-helper provides verbal cues and/or touching/steadying and/or contact guard assistance as patient completes activity. Assistance may be provided throughout the activity or intermittently. 3-Partial/Moderate Assistance-helper does LESS THAN HALF the effort. [place] lifts, holds or supports trunk or limbs, but provides less than half the effort. 2-Substantial/Maximal Assistance-helper does MORE THAN HALF the effort. [place] lifts or holds trunk or limbs and provides more than half the effort. 6-Tvstaxoje-yodtrf does ALL the effort. Patient does none of the effort to complete the activity. Or, the assistance of 2 or more helpers is required for the patient to complete the activity. If activity was not attempted, code reason: 7-Patient Refused. 9-Not Applicable-not attempted and the patient did not perform the activity before the current illness, exacerbation or injury. 10-Not Attempted due to Environmental Limitations-(lack of equipment, weather restraints, etc.). 88-Not Attempted due to Medical Conditions or Safety Concerns. Roll Left & Right (QC): 6 Sit to Lying (QC): 6 Lying to Sitting/Side of Bed(Q: 6 Sit to Stand (QC): 5 Chair/Wnw-uj-Lnmpr Xfer(QC): 5 Weight Bearing Full Weight Bearing Full Weight Bearing Gait Training Does the Patient Walk?: Yes Distance: 500' Walk 10 feet (QC): 5 Walk 50 ft with 2 Turns(QC): 5 Walk 150 ft (QC): 5 Gait Assistive Device: FWW functional gait sequence with increase in fatigue with activity Exercises Seated Therapy Exercises: Ankle pumps, Long arc quads Seated Reps: 15 Assessment Patient is up in recliner after treatment with spouse present. Continues to display decreased endurance with activity. PT Alf Goals Alf Goals PT Beauty Counselor Goals Time Frame: Oct 18, 2020 Roll Left & Right (QC): 6 Sit to Lying (QC): 6 Lying-Sitting on Side/Bed(QC): 6 Sit to Stand (QC): 6 Chair/Por-sv-Ojcln Xfer(QC): 6 Toilet Transfer (QC): 6 Walk 10 feet (QC): 6 Walk 50ft with 2 Turns (QC): 6 Walk 150 ft (QC): 6 PT Plan Treatment/Plan Treatment Plan: Continue Plan of Care Treatment Plan: Bed Mobility, Education, Functional Activity Jossy, Functional Strength, Gait, Safety, Therapeutic Exercise, Transfers Treatment Duration: Oct 18, 2020 Frequency: 6 times per week Estimated Hrs Per Day: .25 hour per day Patient and/or Family Agrees t: Yes Time/GCodes Time In: 950 Time Out: 1009 Total Billed Treatment Time: 19 Total Billed Treatment 1 visit FA 19 min AUBREY GRANADOS PT Oct 09, 2020 10:26
[2020-10-09 11:46] VITALS: BP 169/84
[2020-10-09 16:00] VITALS: BP 169/77
[2020-10-09 19:53] VITALS: BP 169/87
[2020-10-09] MEDS: traZODone 50 MG (DESYREL) TAB PO PRN (20:41)
[2020-10-09] MEDS: SERTRALINE 50 MG (ZOLOFT) TABLET PO SCH (20:41)
[2020-10-09 23:57] VITALS: BP 158/82
[2020-10-10] MEDS: inSUlin ASPART (NovoLOG) 1 UNIT/0.01 ML (CHARGE PER UNIT) SC SCH ×4 (00:09→17:50)
[2020-10-10] MEDS: ONDANSETRON 4 MG/2 ML (SDV) Z0FRAN IVP PRN (00:25)
[2020-10-10] MEDS: RT-ALBUTEROL/IPRATROPIUM 3 ML (DUONEB) VIAL INH SCH ×6 (02:13→22:25)
[2020-10-10 04:00] VITALS: BP 154/83
[2020-10-10 05:39] LABS: HEMOGLOBIN 8.6 g/dL (13.3-17.7); MEAN PLATELET VOLUME 9.1 fL (9.0-12.2); WHITE BLOOD COUNT 8.6 10^3/uL (4.3-11.0)
[2020-10-10 06:05] LABS: ALANINE AMINOTRANSFERASE 39 U/L (0-55); ALBUMIN 2.6 GM/DL (3.2-4.5); ALKALINE PHOSPHATASE 84 U/L (40-136); BILIRUBIN,TOTAL 0.4 MG/DL (0.1-1.0); BUN/CREATININE RATIO 5; CALCIUM 7.9 MG/DL (8.5-10.1); CARBON DIOXIDE 22 MMOL/L (21-32); CHLORIDE 105 MMOL/L (98-107); CREATININE SERUM 0.98 MG/DL (0.60-1.30); GFR ESTIMATED > 60; GLUCOSE 114 MG/DL (70-105); MAGNESIUM 1.7 MG/DL (1.6-2.4); PHOSPHORUS 2.4 MG/DL (2.3-4.7); POTASSIUM 3.3 MMOL/L (3.6-5.0); SODIUM 138 MMOL/L (135-145); TOTAL PROTEIN 6.4 GM/DL (6.4-8.2)
[2020-10-10] MEDS: POTASSIUM CHLORIDE INJ 20 MEQ in D5 LR IV SOLUTION 1,000 ML IV SCH ×2 (06:12→17:49)
[2020-10-10] MEDS: LEVOTHYROXINE 25 MCG (LEVOTHROID) TAB PO SCH (06:13)
--- NOTE | 2020-10-10 07:51 | Progress Note - Surgery ---
ALICIA BERMAN MED STUDENT 10/10/20 0751: Subjective Date Seen by a Provider: Oct 10, 2020 Time Seen by a Provider: 07:30 Subjective/Events-last exam Pt is awake and sitting up in bed this morning. Says his pain is pretty mild, about a 3 in his lower abdomen, sometimes radiating up to the top of his incision. States pain is well controlled. He has been tolerating clear liquids well, gets a little nauseas sometimes but no vomiting. States he has not had any ensure yet. Still using IS and ambulating with PT. Still having bowel movements and passing gas. LBM today. His NG tube has been removed. No other questions besides when he can go home. Review of Systems General: No Chills, No Fatigue HEENT: No Head Aches, No Visual Changes Pulmonary: No Dyspnea; Cough (mild) Cardiovascular: No: Chest Pain, Palpitations Gastrointestinal: Nausea (with liquids), Abdominal Pain; No: Vomiting Genitourinary: No Dysuria, No Hematuria Musculoskeletal: No: leg pain Focused Exam Time of Focused Exam: 17:49 Objective Exam Vital Signs Date Time Temp Pulse Resp B/P (MAP) Pulse Ox O2 Delivery O2 Flow Rate FiO2 10/10/20 06:38 89 Room Air 10/10/20 04:00 36.2 81 20 154/83 (106) 96 Room Air 10/10/20 02:13 90 Room Air 10/10/20 00:38 86 10/09/20 23:57 36.6 90 18 158/82 (107) 94 Room Air 10/09/20 22:13 91 Room Air 10/09/20 20:00 Room Air 10/09/20 19:53 36.2 91 18 169/87 (114) 94 Room Air 10/09/20 19:00 82 10/09/20 16:00 36.4 81 18 169/77 (107) 94 Room Air 10/09/20 14:36 94 Room Air 10/09/20 12:11 81 10/09/20 11:46 36.8 87 20 169/84 (112) 95 Room Air 10/09/20 10:09 93 Nasal Cannula 1.00 10/09/20 08:00 36.3 100 20 173/92 (119) 95 Nasal Cannula 1.50 10/09/20 08:00 Nasal Cannula 1.00 I & O 10/10/20 07:00 Intake Total 1510 ml Output Total 1975 ml Balance -465 ml Capillary Refill : Less Than 3 SecondsLess Than 3 Seconds General Appearance: No Apparent Distress, Obese HEENT: Other (NG tube in place) Respiratory: Lungs Clear, Normal Breath Sounds, No Accessory Muscle Use Cardiovascular: Regular Rate, Rhythm, No Murmur Peripheral Pulses: 2+ Radial Pulses (R), 2+ Radial Pulses (L) Gastrointestinal: soft, distended (Slight distention and firm; appears slighly less than yesterday), tenderness (minimal at incision), other (Abdominal incision with wound vac in place. Draining, no leaking, vaccum intact. Minimal erythema at edges. ) Extremity: No Calf Tenderness Neurologic/Psychiatric: Alert, Oriented x3, Normal Mood/Affect Skin: Normal Color, Warm/Dry Lymphatic: No Adenopathy Results Lab Laboratory Tests 10/09/20 09:20: White Blood Count 10.3, Red Blood Count 3.55L, Hemoglobin 8.8L, Hematocrit 29L, Mean Corpuscular Volume 80, Mean Corpuscular Hemoglobin 25, Mean Corpuscular Hemoglobin Concent 31L, Red Cell Distribution Width 16.1H, Platelet Count 344, Mean Platelet Volume 9.3 10/09/20 11:52: Glucometer 124H 10/09/20 13:13: Lab Scanned Report Transfusion Reaction Form 10/09/20 17:08: Glucometer 130H 10/09/20 23:47: Glucometer 117H 10/10/20 05:30: White Blood Count 8.6, Red Blood Count 3.52L, Hemoglobin 8.6L, Hematocrit 28L, Mean Corpuscular Volume 80, Mean Corpuscular Hemoglobin 24L, Mean Corpuscular Hemoglobin Concent 30L, Red Cell Distribution Width 16.3H, Platelet Count 320, Mean Platelet Volume 9.1, Sodium Level 138, Potassium Level 3.3L, Chloride Level 105, Carbon Dioxide Level 22, Anion Gap 11, Blood Urea Nitrogen 5L, Creatinine 0.98, Estimat Glomerular Filtration Rate > 60, BUN/Creatinine Ratio 5, Glucose Level 114H, Calcium Level 7.9L, Corrected Calcium 9.0, Phosphorus Level 2.4, Magnesium Level 1.7, Total Bilirubin 0.4, Aspartate Amino Transf (AST/SGOT) 59H, Alanine Aminotransferase (ALT/SGPT) 39, Alkaline Phosphatase 84, Total Protein 6.4, Albumin 2.6L Microbiology 09/30/20 Gram Stain - Final, Complete 09/30/20 Sputum Culture - Final, Complete YEAST 09/28/20 Blood Culture - Final, Complete No growth 09/28/20 Urine Culture - Final, Complete NO GROWTH Assessment/Plan Assessment/Plan Assessment/Plan 1. Metastatic Colon CA s/p SBR and washout -Pt tolerating liquids well, NG removed. -Encourage Ensure or try soft foods if tolerable. -Continue Pain meds as needed, encourage ambulation and IS, PT. -Encourage pt to continue to drink liquids 2. Anemia-Stable today. continue to monitor KASHIF GARCIAS MD 10/10/20 0912: Supervisory-Addendum Brief Verification & Attestation Participated in pt care: history, MDM, physical Personally performed: exam Care discussed with: Medical Student Procedures: n/a tolerating clears. having bowel movements. slow to ambulate however working with PT. pain controlled. no fever/chills. -advance diet. -increase ambulation. ALICIA BERMAN MED STUDENT Oct 10, 2020 07:51 KASHIF GARCIAS MD Oct 10, 2020 09:12
[2020-10-10 07:54] VITALS: BP 162/88
[2020-10-10] MEDS ORDERED: KCL 20 MEQ TAB (K-DUR) PO ONE (08:26)
[2020-10-10] MEDS: amLODIPine 5 MG (NORVASC) TAB PO SCH (08:29)
[2020-10-10] MEDS: PANTOPRAZOLE 40 MG (PROTONIX) TAB PO SCH (08:29)
[2020-10-10] MEDS: meTOprolol TARTRATE 50 MG (LOPRESSOR) TAB PO SCH ×2 (08:29→20:27)
[2020-10-10] MEDS: LOSARTAN 100 MG (COZAAR) TABLET PO SCH (08:29)
[2020-10-10] MEDS: ENOXAPARIN 40 MG/0.4 ML (LOVENOX) SYR SC SCH (08:30)
[2020-10-10] MEDS ORDERED: KCL 20 MEQ TAB (K-DUR) PO NR (08:30)
--- NOTE | 2020-10-10 08:42 | Progress Note - Hospitalist ---
JOJO GRIFFIN MED STUDENT 10/10/20 0842: Subjective HPI/CC On Admission Date Seen by Provider: Oct 10, 2020 Time Seen by Provider: 08:15 Fwup wound dehiscence with fistula, S/P right colon resection for colon cancer, bowel resection for bowel obstruction, septic shock. Subjective/Events-last exam Pt sitting up in chair with beside him; pain well-controlled. NGT removed last night and he is tolerating clear liquids well. He experienced some nausea last night that has been controlled with Zofran since. Continues to have BM and pass gas. Focused Exam Time of Focused Exam: 17:49 Objective Exam Vital Signs Vital Signs Date Time Temp Pulse Resp B/P (MAP) Pulse Ox O2 Delivery O2 Flow Rate FiO2 10/10/20 07:54 36.5 95 18 162/88 (112) 98 Room Air 10/09/20 10:09 1.00 Capillary Refill : Less Than 3 SecondsLess Than 3 Seconds General Appearance: No Apparent Distress, WD/WN Neck: Non Tender, Supple Respiratory: Chest Non Tender, Normal Breath Sounds, No Accessory Muscle Use, Crackles (LLL) Cardiovascular: Regular Rate, Rhythm, No Edema, Normal Peripheral Pulses Gastrointestinal: Normal Bowel Sounds, Non Tender, Soft, Other (wound vac in place) Extremity: No Calf Tenderness, No Pedal Edema Neurologic/Psychiatric: Alert, Oriented x3, Normal Mood/Affect Results/Procedures Lab Laboratory Tests 10/09/20 09:20 10/10/20 05:30 Patient resulted labs reviewed. Assessment/Plan Assessment and Plan Assess & Plan/Chief Complaint 1. Severe Septic Shock due to Wound Dehiscence with fistula from recent right sided colectomy for colon cancer--S/P Exp Lap with bowel obstruction and bowel resection x2--and subsequent surgery for abdominal cleanout and wound vac placement, wound vac in place, zosyn discontinued, no longer on eraxis, NGT removed, tolerating clear liquids, progress diet as per surgery's orders 2. Hypertension-- continue Losartan 100 mg daily and add 5 mg Amlodipine daily 3. DMII--on accuchecks with SSI 4. COPD--on duoneb routinely 5. Weakness--PT started - walks around corridor multiple times per day. Discussed possible admission to rehab; eval today 6. Hypokalemia--replace potassium orally 40 mEq today 7. Anemia -- stable after iron 8. MDD -- Sertraline as taken at home; Trazodone PRN 9. Nausea -- 4 mg Zofran PRN Diagnosis/Problems Diagnosis/Problems (1) COPD (chronic obstructive pulmonary disease) Status: Chronic (2) Wound dehiscence Status: Acute (3) Hypertension Status: Chronic (4) Status post right hemicolectomy Status: Acute (5) Diabetes (6) MDD (major depressive disorder) Status: Chronic YENI RUVALCABA DO 10/10/20 1754: Supervisory-Addendum Brief Verification & Attestation Participated in pt care: history Personally performed: exam, history, supervision of care Care discussed with: Medical Student Procedures: n/a Patient seen and agree with above plan. Will do rehab evaluation and see if qualifies and bed available but patient really wants to go home. Advance diet per surgery. JOJO GRIFFIN MED STUDENT Oct 10, 2020 08:42 YENI RUVALCABA DO Oct 10, 2020 17:54
--- NOTE | 2020-10-10 09:56 | Physical Therapy Daily Note ---
PT Daily Note-Current Subjective Patient had ambulated with nursing staff this a.m. but agrees to PT. Mental Status Patient Orientation: Normal For Age Attachments: IV abdominal wound vac Transfers SCALE: Activities may be completed with or without assistive devices. 2-Zvfrrsdorj-afektsa completes the activity by him/herself with no assistance from a helper. 5-Set-up or Clean-up Assistance-helper sets up or cleans up; patient completes activity. [place] assists only prior to or following the activity. 4-Supervision or Touching Assistance-helper provides verbal cues and/or touching/steadying and/or contact guard assistance as patient completes activity. Assistance may be provided throughout the activity or intermittently. 3-Partial/Moderate Assistance-helper does LESS THAN HALF the effort. [place] lifts, holds or supports trunk or limbs, but provides less than half the effort. 2-Substantial/Maximal Assistance-helper does MORE THAN HALF the effort. [place] lifts or holds trunk or limbs and provides more than half the effort. 6-Wyjqbhtkm-xtagsm does ALL the effort. Patient does none of the effort to complete the activity. Or, the assistance of 2 or more helpers is required for the patient to complete the activity. If activity was not attempted, code reason: 7-Patient Refused. 9-Not Applicable-not attempted and the patient did not perform the activity before the current illness, exacerbation or injury. 10-Not Attempted due to Environmental Limitations-(lack of equipment, weather restraints, etc.). 88-Not Attempted due to Medical Conditions or Safety Concerns. Sit to Stand (QC): 6 Weight Bearing Full Weight Bearing Full Weight Bearing Gait Training Does the Patient Walk?: Yes Distance: 500' Walk 10 feet (QC): 6 Walk 50 ft with 2 Turns(QC): 6 Walk 150 ft (QC): 6 Gait Assistive Device: FWW safe and functional with no deviation Exercises Seated Therapy Exercises: Ankle pumps, Long arc quads, Hip flexion Seated Reps: 12 (with instruction to perform PRN) Assessment Patient tolerated treatment well and remains up in recliner. Nursing staff reports they will ambulate with patient PRN. PT Halfway Goals Halfway Goals PT Stock Plan Administrator Goals Time Frame: Oct 18, 2020 Roll Left & Right (QC): 6 Sit to Lying (QC): 6 Lying-Sitting on Side/Bed(QC): 6 Sit to Stand (QC): 6 Chair/Ogn-qz-Jftjo Xfer(QC): 6 Toilet Transfer (QC): 6 Walk 10 feet (QC): 6 Walk 50ft with 2 Turns (QC): 6 Walk 150 ft (QC): 6 PT Plan Treatment/Plan Treatment Plan: Continue Plan of Care Treatment Plan: Bed Mobility, Education, Functional Activity Jossy, Functional Strength, Gait, Safety, Therapeutic Exercise, Transfers Treatment Duration: Oct 18, 2020 Frequency: 6 times per week Estimated Hrs Per Day: .25 hour per day Patient and/or Family Agrees t: Yes Time/GCodes Time In: 843 Time Out: 856 Total Billed Treatment Time: 13 Total Billed Treatment 1 visit FA 13 min AUBREY GRANADOS PT Oct 10, 2020 09:56
[2020-10-10] MEDS: HYDROcodone/APAP 7.5 MG/325 MG (LORTAB, LORCET PLUS) TABLET PO PRN ×2 (10:43→20:27)
[2020-10-10 12:00] VITALS: BP 162/79
[2020-10-10] MEDS: morphine INJ 4 MG/ML 1 ML (VIAL/SYRINGE) IVP PRN (13:45)
--- NOTE | 2020-10-10 15:33 | Progress Note - Cardiology ---
Cardiology SOAP Progress Note Subjective: Gen malaise and weakness Shortness of breath as before No cp or palp or syncope No n/v/d Objective: I&O/Vital Signs 10/10/20 10/10/20 10/10/20 10/10/20 04:00 06:38 07:00 07:54 Temp 36.2 36.5 Pulse 81 80 95 Resp 20 18 B/P (MAP) 154/83 (106) 162/88 (112) Pulse Ox 96 89 98 O2 Delivery Room Air Room Air Room Air 10/10/20 10/10/20 10/10/20 10/10/20 08:00 10:14 12:00 12:34 Temp 36.1 Pulse 86 81 Resp 18 B/P (MAP) 162/79 (106) Pulse Ox 90 92 O2 Delivery Room Air Room Air Room Air 10/10/20 14:34 Pulse Ox 92 O2 Delivery Room Air 10/10/20 00:00 Intake Total 1080 ml Output Total 1200 ml Balance -120 ml Weight (Pounds): 238 Weight (Ounces): 5.0 Weight (Calculated Kilograms): 107.324238 Constitutional: AAO x 3 (oriented to self and place ) Respiratory: other (fair air entry; poor inspiratory effort) Cardiovascular: No JVD; tachycardia, S1 and S2 Gastrointestional: other (not palpated d/t recent surgery ) Extremities: other (mod bilat LE swelling) Neurologic/Psychiatric: grossly intact (moving extremities) Skin: pallor; No rash on exposed areas, No ulcerations on exposed areas Results/Procedures: Labs Laboratory Tests 10/09/20 17:08: Glucometer 130H 10/09/20 23:47: Glucometer 117H 10/10/20 05:30: White Blood Count 8.6, Red Blood Count 3.52L, Hemoglobin 8.6L, Hematocrit 28L, Mean Corpuscular Volume 80, Mean Corpuscular Hemoglobin 24L, Mean Corpuscular Hemoglobin Concent 30L, Red Cell Distribution Width 16.3H, Platelet Count 320, Mean Platelet Volume 9.1, Sodium Level 138, Potassium Level 3.3L, Chloride Level 105, Carbon Dioxide Level 22, Anion Gap 11, Blood Urea Nitrogen 5L, Creatinine 0.98, Estimat Glomerular Filtration Rate > 60, BUN/Creatinine Ratio 5, Glucose Level 114H, Calcium Level 7.9L, Corrected Calcium 9.0, Phosphorus Level 2.4, Magnesium Level 1.7, Total Bilirubin 0.4, Aspartate Amino Transf (AST/SGOT) 59H, Alanine Aminotransferase (ALT/SGPT) 39, Alkaline Phosphatase 84, Total Protein 6 .4, Albumin 2.6L 10/10/20 10:56: Glucometer 129H Microbiology 09/30/20 Gram Stain - Final, Complete 09/30/20 Sputum Culture - Final, Complete YEAST 09/28/20 Blood Culture - Final, Complete No growth 09/28/20 Urine Culture - Final, Complete NO GROWTH Laboratory Tests 10/09/20 04:28 10/09/20 09:20 10/10/20 05:30 A/P: Assessment: Wound dehiscence with fistula - wound vac placed - management per Dr. Ramos Sepsis - management per Medical services S/P right colon resection for colon cancer Sinus tachycardia - improved with BB tx Post op anemia - management per medical/surgical services Coronary artery disease, history of CABG x3 done in 2007. - Last cardiac catheterization was done on July 11, [address] Golden showing patent stent in the proximal LAD, small vessel disease distally, known occluded ZELAYA, patent vein graft to diagonal artery with good flow distally, patent vein graft to the right coronary artery with good flow distally, 50 percent ostial proximal left main stenosis, nondominant circumflex artery. COPD Obstructive sleep apnea, maintained on C Pap Questionable history of TIA. Labile hypertension History of orthostatic hypotension Hyperlipidemia - tolerates only very low dose statin Diabetes mellitus Carotid stenosis, mild nonobstructive disease bilaterally, monitored by Dr Golden History of chronic compensated left ventricular diastolic dysfunction, echocardiogram done in April 2019 showing ejection fraction 50-55 percent, grade 2 diastolic dysfunction, left atrium 4.6 cm, aortic valve trivial regurgitation, PA pressure 35-40 mmHg History of tobaccoism, patient has been abstinent from smoking since 2007. History of parathyroidectomy done in in November 2018. Plan: Replenish K Monitor labs I answered his CV-related questions HANNAH GARRETT MD FACP FAC CCDS Oct 10, 2020 15:33
[2020-10-10 16:00] VITALS: BP 172/84
[2020-10-10] MEDS: KCL 20 MEQ TAB (K-DUR) PO SCH (18:02)
[2020-10-10 20:25] VITALS: BP 151/79
[2020-10-10] MEDS: SERTRALINE 50 MG (ZOLOFT) TABLET PO SCH (20:27)
[2020-10-11] VITALS (7 sets, daily range): BP systolic 134–168; BP diastolic 75–85
[2020-10-11] MEDS: RT-ALBUTEROL/IPRATROPIUM 3 ML (DUONEB) VIAL INH SCH ×3 (02:18→18:13)
[2020-10-11] MEDS: inSUlin ASPART (NovoLOG) 1 UNIT/0.01 ML (CHARGE PER UNIT) SC SCH ×5 (03:27→21:01)
[2020-10-11] MEDS: POTASSIUM CHLORIDE INJ 20 MEQ in D5 LR IV SOLUTION 1,000 ML IV SCH ×3 (03:55→21:01)
[2020-10-11] MEDS: LEVOTHYROXINE 25 MCG (LEVOTHROID) TAB PO SCH (05:26)
[2020-10-11 05:32] LABS: HEMOGLOBIN 9.3 g/dL (13.3-17.7); MEAN PLATELET VOLUME 9.6 fL (9.0-12.2); WHITE BLOOD COUNT 8.1 10^3/uL (4.3-11.0)
[2020-10-11 05:47] LABS: ALBUMIN 2.8 GM/DL (3.2-4.5); CHLORIDE 103 MMOL/L (98-107); POTASSIUM 3.8 MMOL/L (3.6-5.0); SODIUM 138 MMOL/L (135-145)
[2020-10-11 05:49] LABS: CALCIUM 8.3 MG/DL (8.5-10.1)
[2020-10-11 05:50] LABS: GLUCOSE 108 MG/DL (70-105); TOTAL PROTEIN 7.2 GM/DL (6.4-8.2)
[2020-10-11 05:51] LABS: BILIRUBIN,TOTAL 0.5 MG/DL (0.1-1.0); CARBON DIOXIDE 23 MMOL/L (21-32)
[2020-10-11 05:53] LABS: ALKALINE PHOSPHATASE 101 U/L (40-136); CREATININE SERUM 0.92 MG/DL (0.60-1.30); GFR ESTIMATED > 60
[2020-10-11 05:54] LABS: BUN/CREATININE RATIO 4
[2020-10-11 05:56] LABS: ALANINE AMINOTRANSFERASE 107 U/L (0-55); MAGNESIUM 1.6 MG/DL (1.6-2.4)
--- NOTE | 2020-10-11 08:06 | Progress Note ---
Subjective Subjective Date Seen by Provider: Oct 11, 2020 Time Seen by Provider: 07:00 Pt seen and examined. Laying in bed awake, NAD. Complains of mild 2/10 discomfort to his abd. Denies fevers, chills, chest pain, N/V, lightheadedness; chronic SOB with no acute changes. States he had a BM yesterday that was hard/f lat per his ; lately he has been feeling pressure and on attempt to have a BM, he has rectal pain and only urinates. His appetite has been poor and has not been eating much, but states that if his food was heated he may be able to increase his intake. Woundvac in place to abd, minimal serous drainage noted in canister. No s/s wound infection. Review of Systems General: No Chills, No Fatigue; Appetite (poor) HEENT: No Head Aches, No Visual Changes Pulmonary: No Dyspnea; Cough (mild) Cardiovascular: No: Chest Pain, Palpitations Gastrointestinal: Abdominal Pain; No: Nausea (with liquids), Vomiting Genitourinary: No Dysuria, No Hematuria Musculoskeletal: No: neck pain, back pain, leg pain Neurological: No: Weakness, Numbness Objective Exam Vital Signs Vital Signs - First Documented 10/05/20 10/05/20 00:19 00:48 Temp 36.5 Pulse 86 Resp 20 B/P (MAP) 160/87 (111) Pulse Ox 99 O2 Delivery Nasal Cannula O2 Flow Rate 3.00 Capillary Refill : Less Than 3 SecondsLess Than 3 Seconds General Appearance: No Apparent Distress, WD/WN Eyes: Bilateral Eye PERRL, Bilateral Eye EOMI HEENT: PERRL/EOMI, Normal ENT Inspection, Other (NG tube in place) Neck: Full Range of Motion, Normal Inspection, Non Tender, Supple Respiratory: Chest Non Tender, Normal Breath Sounds, No Accessory Muscle Use Cardiovascular: Regular Rate, Rhythm, No Edema, Normal Peripheral Pulses Gastrointestinal: Normal Bowel Sounds, Soft, Tenderness (mild), Other (woundvac to midline abd, minimal serous drainage) Rectal: Deferred Back: No CVA Tenderness Extremity: No Calf Tenderness, No Pedal Edema Neurologic/Psychiatric: Alert, Oriented x3, Normal Mood/Affect Skin: Normal Color, Warm/Dry Lymphatic: No Adenopathy Results Lab Laboratory Tests 10/10/20 10:56: Glucometer 129H 10/10/20 16:18: Glucometer 121H 10/11/20 00:00: Glucometer 113H 10/11/20 05:25: White Blood Count 8.1, Red Blood Count 3.80L, Hemoglobin 9.3L, Hematocrit 31L, Mean Corpuscular Volume 80, Mean Corpuscular Hemoglobin 25, Mean Corpuscular Hemoglobin Concent 31L, Red Cell Distribution Width 16.5H, Platelet Count 331, Mean Platelet Volume 9.6, Sodium Level 138, Potassium Level 3.8, Chloride Level 103, Carbon Dioxide Level 23, Anion Gap 12, Blood Urea Nitrogen 4L, Creatinine 0.92, Estimat Glomerular Filtration Rate > 60, BUN/Creatinine Ratio 4, Glucose Level 108H, Calcium Level 8.3L, Corrected Calcium 9.3, Magnesium Level 1.6, Total Bilirubin 0.5, Aspartate Amino Transf (AST/SGOT) 160H, Alanine Aminotransferase (ALT/SGPT) 107H, Alkaline Phosphatase 101, Total Protein 7.2, Albumin 2.8L Microbiology 09/30/20 Gram Stain - Final, Complete 09/30/20 Sputum Culture - Final, Complete YEAST 09/28/20 Blood Culture - Final, Complete No growth 09/28/20 Urine Culture - Final, Complete NO GROWTH Assessment/Plan Assessment/Plan Assessment and Plan Wound dehiscence s/p ex lap w/ abd washout, small bowel resection x2, woundvac placement 09/29 Colon cancer - R hemicolectomy 09/20 Severe septic shock - resolved Acute liver enzyme elevation - AST 160, ALT 107 Anemia - Hgb 9.3 CAD - hx of CABG x3 HTN T2DM COPD Woundvac to mid-abd with minimal serous drainage; managed by General surgery Gallbladder US for elevated enzymes Cardiology following Continue to monitor VS/labs Problems: (1) COPD (chronic obstructive pulmonary disease) (2) Wound dehiscence (3) Hypertension (4) Status post right hemicolectomy (5) Diabetes (6) MDD (major depressive disorder) Supervisory-Addendum Brief Verification & Attestation Participated in pt care: history, MDM, physical Personally performed: exam, history, MDM, supervision of care Care discussed with: Medical Student Procedures: n/a Results interpretation: Verified all documentation I HAVE PERSONALLY INTERVIEWED AND EXAMINED THE PATIENT AND FORMULATED THE ASSESSMENT AND PLAN DOCUMENTED BELOW. I AGREE WITH THE MEDICAL STUDENT DOCUMENTATION OF THE REVIEW OF SYSTEMS AND EXAMINATION WITH CHANGES MADE IN NOTES SECTION OF THE EXAM OR ROS. HX OF RIGHT COLECTOMY WITH WOUND DEHISCENCE PARTIAL SMALL BOWEL RESECTION X 2 WOUND VAC PLACEMENT OVER VENTRAL ABDOMINAL WOUND COLON CANCER ACUTE ELEVATION OF LIVER ENZYMES POST-OPERATIVE ANEMIA HYPERTENSION DIABETES MELLITUS HX OF CORONARY ARTERY DISEASE DEPRESSION DECREASED APPETITE HX OF RIGHT COLECTOMY WITH WOUND DEHISCENCE AND PARTIAL SMALL BOWEL RESECTION X 2 - WOUND VAC PLACEMENT OVER VENTRAL ABDOMINAL WOUND - COLON CANCER - WAITING ON HEALING POST-OPERATIVELY - DEFER TO ONCOLOGY OUTPATIENT. ACUTE ELEVATION OF LIVER ENZYMES - CONCERN FOR POSSIBLE GALLBLADDER INVOLVEMENT - GB ULTRASOUND ORDERED FOR TODAY. POST-OPERATIVE ANEMIA - MONITOR LABS HYPERTENSION - UNCONTROLLED - INCREASE NORVASC TO 5MG PO BID. - MONITOR BP SERIALLY DIABETES MELLITUS - STABLE - MONITOR FSBS HX OF CORONARY ARTERY DISEASE - SUPPORTIVE CARE AT THIS TIME DEPRESSION - ON ANTIDEPRESSANT THERAPY NO CHANGE IN CURRENT REGIMEN - PT IS IN A LOW MOOD TODAY DUE TO HIS COLON CANCER, AND NEW FINDING OF ELEVATED LIVER ENZYMES, HOPEFULLY WILL HAVE IMPROVEMENT WHEN HE IS ABLE TO LEAVE THE HOSPITAL. DECREASED APPETITE - MONITOR - WILL ASK STAFF TO MAKE SURE HIS FOOD IS WARM WHEN HE GETS HIS NEXT MEAL. LUCIO CUEVA MED STUDENT Oct 11, 2020 08:06 GERTRUDE KUHN MD Oct 11, 2020 10:30
--- NOTE | 2020-10-11 08:49 | Physical Therapy Daily Note ---
PT Daily Note-Current Subjective Patient agrees to PT and states, "I just want to go home." Spouse present. Patient is up with spouse in room to restroom independently. Mental Status Patient Orientation: Normal For Age Attachments: IV abdominal wound vac Transfers SCALE: Activities may be completed with or without assistive devices. 3-Xbsjqdjbba-fwmorqt completes the activity by him/herself with no assistance from a helper. 5-Set-up or Clean-up Assistance-helper sets up or cleans up; patient completes activity. [place] assists only prior to or following the activity. 4-Supervision or Touching Assistance-helper provides verbal cues and/or touching/steadying and/or contact guard assistance as patient completes activity. Assistance may be provided throughout the activity or intermittently. 3-Partial/Moderate Assistance-helper does LESS THAN HALF the effort. [place] lifts, holds or supports trunk or limbs, but provides less than half the effort. 2-Substantial/Maximal Assistance-helper does MORE THAN HALF the effort. [place] lifts or holds trunk or limbs and provides more than half the effort. 2-Abuqltjqs-aynfri does ALL the effort. Patient does none of the effort to complete the activity. Or, the assistance of 2 or more helpers is required for the patient to complete the activity. If activity was not attempted, code reason: 7-Patient Refused. 9-Not Applicable-not attempted and the patient did not perform the activity before the current illness, exacerbation or injury. 10-Not Attempted due to Environmental Limitations-(lack of equipment, weather restraints, etc.). 88-Not Attempted due to Medical Conditions or Safety Concerns. Roll Left & Right (QC): 6 Sit to Lying (QC): 6 Lying to Sitting/Side of Bed(Q: 6 Sit to Stand (QC): 6 Chair/Hro-kz-Mtcww Xfer(QC): 6 Toilet Transfer (QC): 6 Weight Bearing Full Weight Bearing Full Weight Bearing Gait Training Does the Patient Walk?: Yes Distance: 500' Walk 10 feet (QC): 6 Walk 50 ft with 2 Turns(QC): 6 Walk 150 ft (QC): 6 Gait Assistive Device: FWW no deviation Exercises Seated Therapy Exercises: Ankle pumps, Long arc quads Seated Reps: 15 Assessment Patient tolerated treatment well. Increase activity as tolerated by patient. PT Shelter Goals Shelter Goals PT Shelter Goals Time Frame: Oct 18, 2020 Roll Left & Right (QC): 6 Sit to Lying (QC): 6 Lying-Sitting on Side/Bed(QC): 6 Sit to Stand (QC): 6 Chair/Ixe-nj-Hytsn Xfer(QC): 6 Toilet Transfer (QC): 6 Walk 10 feet (QC): 6 Walk 50ft with 2 Turns (QC): 6 Walk 150 ft (QC): 6 PT Plan Treatment/Plan Treatment Plan: Continue Plan of Care Treatment Plan: Bed Mobility, Education, Functional Activity Jossy, Functional Strength, Gait, Safety, Therapeutic Exercise, Transfers Treatment Duration: Oct 18, 2020 Frequency: 6 times per week Estimated Hrs Per Day: .25 hour per day Patient and/or Family Agrees t: Yes Time/GCodes Time In: 830 Time Out: 840 Total Billed Treatment Time: 10 Total Billed Treatment 1 visit FA 10 min AUBREY GRANADOS PT Oct 11, 2020 08:49
[2020-10-11] MEDS: LOSARTAN 100 MG (COZAAR) TABLET PO SCH (09:03)
[2020-10-11] MEDS: KCL 20 MEQ TAB (K-DUR) PO SCH ×2 (09:03→17:36)
[2020-10-11] MEDS: HYDROcodone/APAP 7.5 MG/325 MG (LORTAB, LORCET PLUS) TABLET PO PRN (09:03)
[2020-10-11] MEDS: meTOprolol TARTRATE 50 MG (LOPRESSOR) TAB PO SCH ×2 (09:03→20:21)
[2020-10-11] MEDS: amLODIPine 5 MG (NORVASC) TAB PO SCH ×2 (09:03→20:21)
[2020-10-11] MEDS: PANTOPRAZOLE 40 MG (PROTONIX) TAB PO SCH (09:03)
[2020-10-11] MEDS: ENOXAPARIN 40 MG/0.4 ML (LOVENOX) SYR SC SCH (09:04)
--- NOTE | 2020-10-11 10:50 | Progress Note ---
Subjective Date Seen by a Provider: Oct 11, 2020 Time Seen by a Provider: 10:20 Subjective/Events-last exam Patient seen with Dr. Dailey. Patient reports doing well and just finished shower. Tolerating diet, having BMs. Denies any N/V or abdominal pain. Ambulating. Focused Exam Time of Focused Exam: 17:49 Objective Exam Vital Signs Date Time Temp Pulse Resp B/P (MAP) Pulse Ox O2 Delivery O2 Flow Rate FiO2 10/11/20 08:00 Room Air 10/11/20 07:55 36.6 95 20 168/85 (112) 95 Room Air 10/11/20 07:24 95 Room Air 10/11/20 07:00 80 10/11/20 04:00 36.6 78 20 143/84 (103) 94 Room Air 10/11/20 02:19 94 Room Air 10/11/20 00:12 79 10/11/20 00:00 36.6 80 16 134/76 (95) 96 Room Air 10/10/20 22:26 92 Room Air 10/10/20 20:25 Room Air 10/10/20 20:25 36.4 91 20 151/79 (103) 96 Room Air 10/10/20 19:00 94 10/10/20 18:38 95 Room Air 10/10/20 16:00 36.3 79 20 172/84 (113) 92 Room Air 10/10/20 14:34 92 Room Air 10/10/20 12:34 81 10/10/20 12:00 36.1 86 18 162/79 (106) 92 Room Air I & O 10/11/20 07:00 Intake Total 1200 ml Output Total 2625 ml Balance -1425 ml Capillary Refill : Less Than 3 SecondsLess Than 3 Seconds General Appearance: No Apparent Distress, WD/WN Neck: Full Range of Motion, Normal Inspection Respiratory: No Accessory Muscle Use, No Respiratory Distress Cardiovascular: Regular Rate, Rhythm, No Edema Gastrointestinal: normal bowel sounds, non tender, soft Extremity: Normal Inspection, Normal Range of Motion Neurologic/Psychiatric: Alert, Oriented x3 Skin: Normal Color, Warm/Dry, Other (Midline abdominal incision C/D/I with woun d vac in place. No signs of infection.) Results Lab Laboratory Tests 10/10/20 10:56: Glucometer 129H 10/10/20 16:18: Glucometer 121H 10/11/20 00:00: Glucometer 113H 10/11/20 05:25: White Blood Count 8.1, Red Blood Count 3.80L, Hemoglobin 9.3L, Hematocrit 31L, Mean Corpuscular Volume 80, Mean Corpuscular Hemoglobin 25, Mean Corpuscular Hemoglobin Concent 31L, Red Cell Distribution Width 16.5H, Platelet Count 331, Mean Platelet Volume 9.6, Sodium Level 138, Potassium Level 3.8, Chloride Level 103, Carbon Dioxide Level 23, Anion Gap 12, Blood Urea Nitrogen 4L, Creatinine 0.92, Estimat Glomerular Filtration Rate > 60, BUN/Creatinine Ratio 4, Glucose Level 108H, Calcium Level 8.3L, Corrected Calcium 9.3, Magnesium Level 1.6, Total Bilirubin 0.5, Aspartate Amino Transf (AST/SGOT) 160H, Alanine Aminotransferase (ALT/SGPT) 107H, Alkaline Phosphatase 101, Total Protein 7.2, Albumin 2.8L Microbiology 09/30/20 Gram Stain - Final, Complete 09/30/20 Sputum Culture - Final, Complete YEAST 09/28/20 Blood Culture - Final, Complete No growth 09/28/20 Urine Culture - Final, Complete NO GROWTH Assessment/Plan Assessment/Plan Assess & Plan/Chief Complaint A 64 year old male with Metastatic Colon CA s/p SBR and washout VSS WBC 8.1 Hgb 9.3 Elevated liver enzymes - Gallbladder US ordered Continue diet Pain meds as needed Encourage ambulation and IS, PT ordered. Continue to monitor labs YESENIA EASON APRN Oct 11, 2020 10:49
--- NOTE | 2020-10-11 14:46 | Progress Note - Cardiology ---
Cardiology SOAP Progress Note Subjective: No cp or palp or syncope Poor stamina Some gen malaise Shortness of breath with activity Objective: I&O/Vital Signs 10/11/20 10/11/20 10/11/20 10/11/20 04:00 07:00 07:24 07:55 Temp 36.6 36.6 Pulse 78 80 95 Resp 20 20 B/P (MAP) 143/84 (103) 168/85 (112) Pulse Ox 94 95 95 O2 Delivery Room Air Room Air Room Air 10/11/20 10/11/20 10/11/20 08:00 11:25 12:31 Temp 36.7 Pulse 77 74 Resp 18 B/P (MAP) 151/84 (106) Pulse Ox 95 O2 Delivery Room Air Room Air 10/11/20 00:00 Intake Total 800 ml Output Total 1600 ml Balance -800 ml Weight (Pounds): 238 Weight (Ounces): 5.0 Weight (Calculated Kilograms): 107.972518 Constitutional: AAO x 3 (oriented to self and place ) Respiratory: other (fair air entry; poor inspiratory effort) Cardiovascular: No JVD; tachycardia, S1 and S2 Gastrointestional: other (not palpated d/t recent surgery ) Extremities: other (mod bilat LE swelling) Neurologic/Psychiatric: grossly intact (moving extremities) Skin: pallor; No rash on exposed areas, No ulcerations on exposed areas Results/Procedures: Labs Laboratory Tests 10/10/20 16:18: Glucometer 121H 10/11/20 00:00: Glucometer 113H 10/11/20 05:25: White Blood Count 8.1, Red Blood Count 3.80L, Hemoglobin 9.3L, Hematocrit 31L, Mean Corpuscular Volume 80, Mean Corpuscular Hemoglobin 25, Mean Corpuscular He moglobin Concent 31L, Red Cell Distribution Width 16.5H, Platelet Count 331, Mean Platelet Volume 9.6, Sodium Level 138, Potassium Level 3.8, Chloride Level 103, Carbon Dioxide Level 23, Anion Gap 12, Blood Urea Nitrogen 4L, Creatinine 0.92, Estimat Glomerular Filtration Rate > 60, BUN/Creatinine Ratio 4, Glucose Level 108H, Calcium Level 8.3L, Corrected Calcium 9.3, Magnesium Level 1.6, Total Bilirubin 0.5, Aspartate Amino Transf (AST/SGOT) 160H, Alanine Aminotransferase (ALT/SGPT) 107H, Alkaline Phosphatase 101, Total Protein 7.2, Albumin 2.8L 10/11/20 11:32: Glucometer 120H Microbiology 09/30/20 Gram Stain - Final, Complete 09/30/20 Sputum Culture - Final, Complete YEAST 09/28/20 Blood Culture - Final, Complete No growth 09/28/20 Urine Culture - Final, Complete NO GROWTH A/P: Assessment: Wound dehiscence with fistula - wound vac placed - management per Dr. Ramos Sepsis - management per Medical services S/P right colon resection for colon cancer Sinus tachycardia - improved with BB tx Post op anemia - management per medical/surgical services Coronary artery disease, history of CABG x3 done in 2007. - Last cardiac catheterization was done on July 11, [address] Golden showing patent stent in the proximal LAD, small vessel disease distally, known occluded ZELAYA, patent vein graft to diagonal artery with good flow distally, patent vein graft to the right coronary artery with good flow distally, 50 percent ostial proximal left main stenosis, nondominant circumflex artery. COPD Obstructive sleep apnea, maintained on C Pap Questionable history of TIA. Labile hypertension History of orthostatic hypotension Hyperlipidemia - tolerates only very low dose statin Diabetes mellitus Carotid stenosis, mild nonobstructive disease bilaterally, monitored by Dr Golden History of chronic compensated left ventricular diastolic dysfunction, echocardiogram done in April 2019 showing ejection fraction 50-55 percent, grade 2 diastolic dysfunction, left atrium 4.6 cm, aortic valve trivial regurgitation, PA pressure 35-40 mmHg History of tobaccoism, patient has been abstinent from smoking since 2007. History of parathyroidectomy done in in November 2018. Plan: Cardiac status appears clinically stable Monitor labs HANNAH GARRETT MD FACP FAC CCDS Oct 11, 2020 14:46
--- NOTE | 2020-10-11 15:28 | Diagnostic Imaging Report ---
PROCEDURE: US gallbladder. TECHNIQUE: Multiple real-time grayscale images were obtained over the right upper quadrant in various projections. INDICATION: Elevated liver enzymes. FINDINGS: No echogenic or shadowing stones within the gallbladder. The Wells sign was negative. The gallbladder wall non-thickened. No pericholecystic fluid. Equivocal findings for a very small amount of intraluminal sludge within the gallbladder but this likely is artifactual owing to body habitus and the patient's echodense fatty liver. No bile duct dilatation. There is obscuration of the pancreas. The aorta and IVC are normal in caliber. The unobstructed right kidney is normal. There is no ascites. IMPRESSION: 1. Echodense fatty liver. No gallstone or bile duct dilatation but there may be a small amount of the gallbladder luminal sludge. No ascites. Unobstructed right kidney. 2. Not mentioned above, the images submitted suggest there is likely at least a small right-sided pleural effusion. Dictated by: Dictated on workstation # [id number]
[2020-10-11] MEDS ORDERED: RT-ALBUTEROL/IPRATROPIUM 3 ML (DUONEB) VIAL ONE (17:57)
[2020-10-11] MEDS ORDERED: ONDANSETRON 4 MG (ZOFRAN) ORAL DISSOLVE TAB PO PRN (20:00)
[2020-10-11] MEDS: SERTRALINE 50 MG (ZOLOFT) TABLET PO SCH (20:21)
[2020-10-12 04:00] VITALS: BP 131/63
[2020-10-12 05:37] LABS: HEMOGLOBIN 9.7 g/dL (13.3-17.7); MEAN PLATELET VOLUME 10.4 fL (9.0-12.2); WHITE BLOOD COUNT 8.6 10^3/uL (4.3-11.0)
[2020-10-12 05:46] LABS: ALBUMIN 2.8 GM/DL (3.2-4.5)
[2020-10-12 05:47] LABS: CHLORIDE 102 MMOL/L (98-107); POTASSIUM 3.6 MMOL/L (3.6-5.0); SODIUM 137 MMOL/L (135-145)
[2020-10-12 05:48] LABS: CALCIUM 8.2 MG/DL (8.5-10.1)
[2020-10-12 05:49] LABS: GLUCOSE 111 MG/DL (70-105); TOTAL PROTEIN 7.2 GM/DL (6.4-8.2)
[2020-10-12 05:50] LABS: CARBON DIOXIDE 20 MMOL/L (21-32)
[2020-10-12] MEDS: inSUlin ASPART (NovoLOG) 1 UNIT/0.01 ML (CHARGE PER UNIT) SC SCH ×4 (05:50→20:49)
[2020-10-12 05:51] LABS: BILIRUBIN,TOTAL 0.5 MG/DL (0.1-1.0)
[2020-10-12 05:52] LABS: ALKALINE PHOSPHATASE 141 U/L (40-136)
[2020-10-12 05:53] LABS: CREATININE SERUM 0.95 MG/DL (0.60-1.30); GFR ESTIMATED > 60
[2020-10-12 05:54] LABS: BUN/CREATININE RATIO 6
[2020-10-12 05:55] LABS: ALANINE AMINOTRANSFERASE 147 U/L (0-55)
[2020-10-12] MEDS: LEVOTHYROXINE 25 MCG (LEVOTHROID) TAB PO SCH (05:58)
[2020-10-12] MEDS: RT-ALBUTEROL/IPRATROPIUM 3 ML (DUONEB) VIAL INH SCH ×2 (07:06→18:56)
[2020-10-12 07:25] VITALS: BP 149/75
[2020-10-12] MEDS: KCL 20 MEQ TAB (K-DUR) PO SCH (08:42)
[2020-10-12] MEDS: amLODIPine 5 MG (NORVASC) TAB PO SCH ×2 (08:42→20:51)
[2020-10-12] MEDS: PANTOPRAZOLE 40 MG (PROTONIX) TAB PO SCH (08:42)
[2020-10-12] MEDS: HYDROcodone/APAP 7.5 MG/325 MG (LORTAB, LORCET PLUS) TABLET PO PRN ×3 (08:42→21:07)
[2020-10-12] MEDS: meTOprolol TARTRATE 50 MG (LOPRESSOR) TAB PO SCH ×2 (08:42→20:51)
[2020-10-12] MEDS: LOSARTAN 100 MG (COZAAR) TABLET PO SCH (08:42)
[2020-10-12] MEDS: ENOXAPARIN 40 MG/0.4 ML (LOVENOX) SYR SC SCH (08:43)
--- NOTE | 2020-10-12 09:32 | Progress Note ---
Subjective Subjective Date Seen by Provider: Oct 12, 2020 Time Seen by Provider: 09:30 MR. 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 PT REPORTS THAT HE IS READY TO GO HOME, BUT HE DOES ADMIT NAUSEA LAST NIGHT WITH HIS EVENING MEAL. HE IS FRUSTRATED THAT HE CANNOT BE DISCHARGED FROM THE HOSPITAL TODAY, HOWEVER HE UNDERSTANDS THE REASON FOR CONTINUED ADMISSION. STAFF REPORTS THAT HE HAS IRRITATION AROUND HIS ANAL TISSUE DUE TO DIARRHEAL STOOLS Review of Systems General: No Chills, No Fatigue; Appetite (poor) HEENT: No Head Aches, No Visual Changes Pulmonary: No Dyspnea; Cough (mild) Cardiovascular: No: Chest Pain, Palpitations Gastrointestinal: Abdominal Pain, Other (ANAL DISCOMFORT WITH STOOLS); No: Nausea (with liquids), Vomiting Genitourinary: No Dysuria, No Hematuria Musculoskeletal: No: neck pain, back pain, leg pain Neurological: No: Weakness, Numbness Objective Exam Vital Signs Vital Signs - First Documented 10/06/20 10/06/20 01:05 04:15 Temp 36.6 Pulse 91 Resp 20 B/P (MAP) 156/86 (109) Pulse Ox 91 O2 Delivery Nasal Cannula O2 Flow Rate 2.00 Capillary Refill : Less Than 3 SecondsLess Than 3 Seconds General Appearance: No Apparent Distress, WD/WN Eyes: Bilateral Eye PERRL, Bilateral Eye EOMI HEENT: PERRL/EOMI, Other (NG tube in place) Neck: Normal Inspection Respiratory: No Accessory Muscle Use, No Respiratory Distress Cardiovascular: Regular Rate, Rhythm, No Edema Gastrointestinal: Normal Bowel Sounds, Soft, Tenderness (mild), Other (woundvac to midline abd, minimal serous drainage) Rectal: Deferred Back: No CVA Tenderness Extremity: Normal Inspection, Normal Range of Motion Neurologic/Psychiatric: Alert, Oriented x3, Normal 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 No signs of infection.) Lymphatic: No Adenopathy Results Lab Laboratory Tests 10/11/20 11:32: Glucometer 120H 10/11/20 20:14: Glucometer 117H 10/12/20 05:17: White Blood Count 8.6, Red Blood Count 3.99L, Hemoglobin 9.7L, Hematocrit 32L, Mean Corpuscular Volume 81, Mean Corpuscular Hemoglobin 24L, Mean Corpuscular Hemoglobin Concent 30L, Red Cell Distribution Width 17.0H, Platelet Count 254, Mean Platelet Volume 10.4, Sodium Level 137, Potassium Level 3.6, Chloride Level 102, Carbon Dioxide Level 20L, Anion Gap 15H, Blood Urea Nitrogen 6L, Creatinine 0.95, Estimat Glomerular Filtration Rate > 60, BUN/Creatinine Ratio 6, Glucose Level 111H, Calcium Level 8.2L, Corrected Calcium 9.2, Total Bilirubin 0.5, Aspartate Amino Transf (AST/SGOT) 174H, Alanine Aminotransferase (ALT/SGPT) 147H , Alkaline Phosphatase 141H, Total Protein 7.2, Albumin 2.8L Microbiology 09/30/20 Gram Stain - Final, Complete 09/30/20 Sputum Culture - Final, Complete YEAST 09/28/20 Blood Culture - Final, Complete No growth 09/28/20 Urine Culture - Final, Complete NO GROWTH Assessment/Plan Assessment/Plan Assessment and Plan HX OF RIGHT COLECTOMY WITH WOUND DEHISCENCE PARTIAL SMALL BOWEL RESECTION X 2 WOUND VAC PLACEMENT OVER VENTRAL ABDOMINAL WOUND COLON CANCER ACUTE ELEVATION OF LIVER ENZYMES POST-OPERATIVE ANEMIA HYPERTENSION DIABETES MELLITUS HX OF CORONARY ARTERY DISEASE DEPRESSION DECREASED APPETITE ANAL IRRITATION HX OF RIGHT COLECTOMY WITH WOUND DEHISCENCE AND PARTIAL SMALL BOWEL RESECTION X 2 - WOUND VAC PLACEMENT OVER VENTRAL ABDOMINAL WOUND - COLON CANCER - WAITING ON HEALING POST-OPERATIVELY - DEFER TO ONCOLOGY OUTPATIENT. ACUTE ELEVATION OF LIVER ENZYMES -GB US REPORT FOLLOWS: FINDINGS: No echogenic or shadowing stones within the gallbladder. The Wells sign was negative. The gallbladder wall non-thickened. No pericholecystic fluid. Equivocal findings for a very small amount of intraluminal sludge within the ga llbladder but this likely is artifactual owing to body habitus and the patient's echodense fatty liver. No bile duct dilatation. There is obscuration of the pancreas. The aorta and IVC are normal in caliber. The unobstructed right kidney is normal. There is no ascites. IMPRESSION: 1. Echodense fatty liver. No gallstone or bile duct dilatation but there may be a small amount of the gallbladder luminal sludge. No ascites. Unobstructed right kidney. 2. Not mentioned above, the images submitted suggest there is likely at least a small right-sided pleural effusion. - CONTINUED WORSENING ELEVATION OF ENZYMES - WILL RESTART IV FLUIDS, STOP REGULAR ENSURE AND START ON ENSURE CLEAR. - REPEAT LABS IN AM. POST-OPERATIVE ANEMIA - MONITOR LABS HYPERTENSION - UNCONTROLLED - INCREASE NORVASC TO 5MG PO BID. - MONITOR BP SERIALLY DIABETES MELLITUS - STABLE - MONITOR FSBS HX OF CORONARY ARTERY DISEASE - SUPPORTIVE CARE AT THIS TIME DEPRESSION - ON ANTIDEPRESSANT THERAPY NO CHANGE IN CURRENT REGIMEN - PT IS IN A LOW MOOD TODAY DUE TO HIS COLON CANCER, AND NEW FINDING OF ELEVATED LIVER ENZYMES, HOPEFULLY WILL HAVE IMPROVEMENT WHEN HE IS ABLE TO LEAVE THE HOSPITAL. ANAL IRRITATION - RX FOR SMALL DOSE OF STEROID CREAM FOR INFLAMED TISSUE. UNFORTUNATELY WE CANNOT DISCHARGE MARIA D DUE TO AN EVEN GREATER ELEVATION OF HIS ENZYMES. Problems: (1) COPD (chronic obstructive pulmonary disease) (2) Wound dehiscence (3) Hypertension (4) Status post right hemicolectomy (5) Diabetes (6) MDD (major depressive disorder) GERTRUDE KUHN MD Oct 12, 2020 09:32
--- NOTE | 2020-10-12 10:10 | Progress Note ---
Subjective Date Seen by a Provider: Oct 12, 2020 Time Seen by a Provider: 09:50 Subjective/Events-last exam Patient seen with Dr. Dailey. Patient reports doing well. Just finished shower. Denies any N/V or abdominal pain. Having BMs. Tolerating diet. Ambulating. Focused Exam Time of Focused Exam: 17:49 Objective Exam Vital Signs Date Time Temp Pulse Resp B/P (MAP) Pulse Ox O2 Delivery O2 Flow Rate FiO2 10/12/20 08:00 Room Air 10/12/20 07:25 36.6 90 14 149/75 (99) 95 Room Air 10/12/20 07:07 95 Room Air 10/12/20 07:00 72 10/12/20 04:00 36.8 74 20 131/63 (85) 96 Room Air 10/12/20 01:00 76 10/11/20 23:29 36.5 78 14 143/76 (98) 95 Room Air 10/11/20 20:00 Room Air 10/11/20 20:00 36.6 80 14 146/75 (98) 96 Room Air 10/11/20 19:59 80 10/11/20 18:13 95 Room Air 10/11/20 16:22 36.3 77 18 141/83 (102) 96 Room Air 10/11/20 12:31 74 10/11/20 11:25 36.7 77 18 151/84 (106) 95 Room Air I & O 10/12/20 07:00 Intake Total 1260 ml Output Total 1050 ml Balance 210 ml Capillary Refill : Less Than 3 SecondsLess Than 3 Seconds General Appearance: No Apparent Distress, WD/WN Neck: Full Range of Motion, Normal Inspection Respiratory: No Accessory Muscle Use, No Respiratory Distress Cardiovascular: Regular Rate, Rhythm, No Edema Gastrointestinal: normal bowel sounds, non tender, soft Extremity: Normal Inspection, Normal Range of Motion Neurologic/Psychiatric: Alert, Oriented x3 Skin: Normal Color, Warm/Dry, Other (Midline abdominal incision C/D/I with wound vac in place. No signs of infection) Results Lab Laboratory Tests 10/11/20 11:32: Glucometer 120H 10/11/20 20:14: Glucometer 117H 10/12/20 05:17: White Blood Count 8.6, Red Blood Count 3.99L, Hemoglobin 9.7L, Hematocrit 32L, Mean Corpuscular Volume 81, Mean Corpuscular Hemoglobin 24L, Mean Corpuscular Hemoglobin Concent 30L, Red Cell Distribution Width 17.0H, Platelet Count 254, Mean Platelet Volume 10.4, Sodium Level 137, Potassium Level 3.6, Chloride Level 102, Carbon Dioxide Level 20L, Anion Gap 15H, Blood Urea Nitrogen 6L, Creatinine 0.95, Estimat Glomerular Filtration Rate > 60, BUN/Creatinine Ratio 6, Glucose Level 111H, Calcium Level 8.2L, Corrected Calcium 9.2, Total Bilirubin 0.5, Aspartate Amino Transf (AST/SGOT) 174H, Alanine Aminotransferase (ALT/SGPT) 147H , Alkaline Phosphatase 141H, Total Protein 7.2, Albumin 2.8L Microbiology 09/30/20 Gram Stain - Final, Complete 09/30/20 Sputum Culture - Final, Complete YEAST 09/28/20 Blood Culture - Final, Complete No growth 09/28/20 Urine Culture - Final, Complete NO GROWTH Assessment/Plan Assessment/Plan Assess & Plan/Chief Complaint A 64 year old male with Metastatic Colon CA s/p SBR and washout VSS WBC 8.6 Hgb 9.7 AST - 174 ALT - 147 Elevated liver enzymes - Gallbladder US showed some sludge, No stones Continue diet Pain meds as needed Encourage ambulation and IS, PT ordered. Continue to monitor labs YESENIA EASON APRN Oct 12, 2020 10:10
[2020-10-12] MEDS: ONDANSETRON 4 MG/2 ML (SDV) Z0FRAN IVP PRN (11:23)
[2020-10-12] MEDS: HYDROCORTISONE 2.5% CREAM (ANUSOL-HC) 30 GM TOP SCH ×2 (11:24→20:52)
[2020-10-12] MEDS: NS IV 1000 ML 1,000 ML IV SCH ×2 (11:24→17:56)
[2020-10-12 11:25] VITALS: BP 143/76
--- NOTE | 2020-10-12 13:25 | Progress Note - Cardiology ---
Cardiology SOAP Progress Note Subjective: No shortness of breath at rest No cp No palp or syncope or swelling No n/v/d Gen malaise present Objective: I&O/Vital Signs 10/12/20 10/12/20 10/12/20 10/12/20 04:00 07:00 07:07 07:25 Temp 36.8 36.6 Pulse 74 72 90 Resp 20 14 B/P (MAP) 131/63 (85) 149/75 (99) Pulse Ox 96 95 95 O2 Delivery Room Air Room Air Room Air 10/12/20 10/12/20 08:00 11:25 Temp 36.7 Pulse 74 Resp 18 B/P (MAP) 143/76 (98) Pulse Ox 94 O2 Delivery Room Air Room Air 10/12/20 00:00 Intake Total 1160 ml Output Total 1050 ml Balance 110 ml Weight (Pounds): 238 Weight (Ounces): 5.0 Weight (Calculated Kilograms): 107.677584 Constitutional: AAO x 3 (oriented to self and place ) Respiratory: other (fair air entry; poor inspiratory effort) Cardiovascular: No JVD; tachycardia, S1 and S2 Gastrointestional: other (not palpated d/t recent surgery ) Extremities: other (mod bilat LE swelling) Neurologic/Psychiatric: grossly intact (moving extremities) Skin: pallor; No rash on exposed areas, No ulcerations on exposed areas Results/Procedures: Labs Laboratory Tests 10/11/20 20:14: Glucometer 117H 10/12/20 05:17: White Blood Count 8.6, Red Blood Count 3.99L, Hemoglobin 9.7L, Hematocrit 32L, Mean Corpuscular Volume 81, Mean Corpuscular Hemoglobin 24L, Mean Corpuscular Hemoglobin Concent 30L, Red Cell Distribution Width 17.0H, Platelet Count 254, Mean Platelet Volume 10.4, Sodium Level 137, Potassium Level 3.6, Chloride Level 102, Carbon Dioxide Level 20L, Anion Gap 15H, Blood Urea Nitrogen 6L, Creatinine 0.95, Estimat Glomerular Filtration Rate > 60, BUN/Creatinine Ratio 6, Glucose Level 111H, Calcium Level 8.2L, Corrected Calcium 9.2, Total Bilirubin 0.5, Aspartate Amino Transf (AST/SGOT) 174H, Alanine Aminotransferase (ALT/SGPT) 147H , Alkaline Phosphatase 141H, Total Protein 7.2, Albumin 2.8L 10/12/20 11:27: Glucometer 118H Microbiology 09/30/20 Gram Stain - Final, Complete 09/30/20 Sputum Culture - Final, Complete YEAST 09/28/20 Blood Culture - Final, Complete No growth 09/28/20 Urine Culture - Final, Complete NO GROWTH Laboratory Tests 10/11/20 05:25 10/12/20 05:17 A/P: Assessment: Wound dehiscence with fistula - wound vac placed - management per Dr. Ramos Sepsis - management per Medical services S/P right colon resection for colon cancer Sinus tachycardia - improved with BB tx Post op anemia - management per medical/surgical services Coronary artery disease, history of CABG x3 done in 2007. - Last cardiac catheterization was done on July 11, [address] Golden showing patent stent in the proximal LAD, small vessel disease distally, known occluded ZELAYA, patent vein graft to diagonal artery with good flow distally, patent vein graft to the right coronary artery with good flow distally, 50 percent ostial proximal left main stenosis, nondominant circumflex artery. COPD Obstructive sleep apnea, maintained on C Pap Questionable history of TIA. Labile hypertension History of orthostatic hypotension Hyperlipidemia - tolerates only very low dose statin Diabetes mellitus Carotid stenosis, mild nonobstructive disease bilaterally, monitored by Dr Golden History of chronic compensated left ventricular diastolic dysfunction, ec hocardiogram done in April 2019 showing ejection fraction 50-55 percent, grade 2 diastolic dysfunction, left atrium 4.6 cm, aortic valve trivial regurgitation, PA pressure 35-40 mmHg History of tobaccoism, patient has been abstinent from smoking since 2007. History of parathyroidectomy done in [facility] in November 2018. Plan: No new cardiac recs at this time Monitor labs HANNAH GARRETT MD FACP FACC CCDS Oct 12, 2020 13:25
[2020-10-12 16:00] VITALS: BP 141/72
[2020-10-12] MEDS: KCL 10 MEQ TAB (MICRO K) PO SCH (17:55)
[2020-10-12 20:45] VITALS: BP 133/64
[2020-10-12] MEDS: SERTRALINE 50 MG (ZOLOFT) TABLET PO SCH (20:51)
[2020-10-12 23:58] VITALS: BP 140/71
[2020-10-13 04:28] VITALS: BP 136/68
[2020-10-13] MEDS: inSUlin ASPART (NovoLOG) 1 UNIT/0.01 ML (CHARGE PER UNIT) SC SCH ×4 (05:49→21:19)
[2020-10-13] MEDS: LEVOTHYROXINE 25 MCG (LEVOTHROID) TAB PO SCH (06:03)
[2020-10-13 06:12] LABS: BASOPHILS # (AUTO) 0.1 10^3/uL (0.0-0.1); BASOPHILS % (AUTO) 1 % (0-10); EOSINOPHILS # (AUTO) 0.1 10^3/uL (0.0-0.3); EOSINOPHILS % (AUTO) 2 % (0-10); HEMATOCRIT 33 % (40-54); HEMOGLOBIN 9.7 g/dL (13.3-17.7); LYMPHOCYTES # (AUTO) 1.3 10^3/uL (1.0-4.0); LYMPHOCYTES % (AUTO) 16 % (12-44); MEAN CORPUSCULAR HEMOGLOBIN 24 pg (25-34); MEAN CORPUSCULAR HGB CONC 30 g/dL (32-36); MEAN CORPUSCULAR VOLUME 82 fL (80-99); MEAN PLATELET VOLUME 10.3 fL (9.0-12.2); MONOCYTES # (AUTO) 0.7 10^3/uL (0.0-1.0); MONOCYTES % (AUTO) 9 % (0-12); NEUTROPHILS # (AUTO) 5.6 10^3/uL (1.8-7.8); NEUTROPHILS % (AUTO) 69 % (42-75); PLATELET COUNT 370 10^3/uL (130-400); WHITE BLOOD COUNT 8.1 10^3/uL (4.3-11.0)
[2020-10-13 06:31] LABS: CHLORIDE 101 MMOL/L (98-107); POTASSIUM 3.5 MMOL/L (3.6-5.0); SODIUM 136 MMOL/L (135-145)
[2020-10-13 06:33] LABS: GLUCOSE 99 MG/DL (70-105); TOTAL PROTEIN 7.5 GM/DL (6.4-8.2)
[2020-10-13 06:34] LABS: CARBON DIOXIDE 23 MMOL/L (21-32)
[2020-10-13 06:35] LABS: BILIRUBIN,TOTAL 0.5 MG/DL (0.1-1.0)
[2020-10-13 06:36] LABS: ALKALINE PHOSPHATASE 137 U/L (40-136)
[2020-10-13 06:37] LABS: CREATININE SERUM 1.08 MG/DL (0.60-1.30); GFR ESTIMATED > 60
[2020-10-13 06:38] LABS: BUN/CREATININE RATIO 7
[2020-10-13 06:40] LABS: ALANINE AMINOTRANSFERASE 148 U/L (0-55)
[2020-10-13] MEDS: NS IV 1000 ML 1,000 ML IV SCH ×2 (07:30→17:22)
[2020-10-13 08:00] VITALS: BP 145/71
[2020-10-13] MEDS: LOSARTAN 100 MG (COZAAR) TABLET PO SCH (08:14)
[2020-10-13] MEDS: meTOprolol TARTRATE 50 MG (LOPRESSOR) TAB PO SCH ×2 (08:14→21:19)
[2020-10-13] MEDS: ENOXAPARIN 40 MG/0.4 ML (LOVENOX) SYR SC SCH (08:14)
[2020-10-13] MEDS: amLODIPine 5 MG (NORVASC) TAB PO SCH ×2 (08:14→21:19)
[2020-10-13] MEDS: PANTOPRAZOLE 40 MG (PROTONIX) TAB PO SCH (08:14)
[2020-10-13] MEDS: HYDROCORTISONE 2.5% CREAM (ANUSOL-HC) 30 GM TOP SCH ×2 (08:15→21:19)
[2020-10-13] MEDS: KCL 10 MEQ TAB (MICRO K) PO SCH ×2 (08:17→17:06)
--- NOTE | 2020-10-13 08:20 | Progress Note - Hospitalist ---
JOJO GRIFFIN MED STUDENT 10/13/20 0820: Subjective HPI/CC On Admission Date Seen by Provider: Oct 13, 2020 Time Seen by Provider: 08:05 Fwup wound dehiscence with fistula, S/P right colon resection for colon cancer, bowel resection for bowel obstruction, septic shock. Subjective/Events-last exam Pt sitting up in chair with at bedside eating breakfast this am without any pain,nausea, or shortness of breath. He feels stronger and states that he participated in multiple physical therapy sessions over the weekend. Focused Exam Time of Focused Exam: 17:49 Objective Exam Vital Signs Vital Signs Date Time Temp Pulse Resp B/P (MAP) Pulse Ox O2 Delivery O2 Flow Rate FiO2 10/13/20 04:28 36.1 67 16 136/68 (90) 96 Room Air 10/09/20 10:09 1.00 Capillary Refill : Less Than 3 SecondsLess Than 3 Seconds General Appearance: No Apparent Distress, WD/WN Neck: Normal Inspection, Non Tender Respiratory: Chest Non Tender, Lungs Clear, Normal Breath Sounds, No Accessory Muscle Use, No Respiratory Distress Cardiovascular: Regular Rate, Rhythm, No Edema, No JVD, Normal Peripheral Pulses Gastrointestinal: Normal Bowel Sounds, Non Tender, Soft, Other (wound vac in place) Extremity: Non Tender, No Calf Tenderness, No Pedal Edema Neurologic/Psychiatric: Alert, Oriented x3, Normal Mood/Affect Results/Procedures Lab Laboratory Tests 10/13/20 05:27 Patient resulted labs reviewed. Assessment/Plan Assessment and Plan Assess & Plan/Chief Complaint 1. Severe Septic Shock due to Wound Dehiscence with fistula from recent right sided colectomy for colon cancer--S/P Exp Lap with bowel obstruction and bowel resection x2--and subsequent surgery for abdominal cleanout and wound vac placement, wound vac in place, zosyn discontinued, no longer on eraxis, NGT removed and progressed to normal diet tolerating well. Will be discharged today. 2. Hypertension-- continue Losartan 100 mg daily and add 5 mg Amlodipine BID; now controlled 3. DMII--on accuchecks with SSI 4. COPD--on duoneb routinely 5. Weakness--PT started - walks around corridor multiple times per day; reports feeling stronger. Discussed rehab placement vs going home 6. Hypokalemia--replace potassium orally 20 mEq today 7. Anemia -- stable 8. MDD -- Sertraline as taken at home; Trazodone PRN. Mood stable. 9. Elevated LFTs -- U/S of gallbladder normal; recheck in 1 week in office. Advised low-fat diet; return to hospital for worsening pain, N/V, jaundice Diagnosis/Problems Diagnosis/Problems (1) COPD (chronic obstructive pulmonary disease) Status: Chronic (2) Wound dehiscence Status: Acute (3) Hypertension Status: Chronic (4) Status post right hemicolectomy Status: Acute (5) Diabetes (6) MDD (major depressive disorder) Status: Chronic YENI RUVALCABA DO 10/13/201816: Supervisory-Addendum Brief Verification & Attestation Participated in pt care: history, physical Personally performed: exam, history, supervision of care Care discussed with: Medical Student Procedures: n/a Results interpretation: Verified all documentation Patient seen and agree with above assessment/plan--will DC home today after wound vac change with home health and fwup with me in my office in 1 week with updated labs. JOJO GRIFFIN MED STUDENT Oct 13, 2020 08:20 YENI RUVALCABA DO Oct 13, 2020 18:17
[2020-10-13] MEDS ORDERED: AMLO-250 PO (08:45)
[2020-10-13] MEDS ORDERED: METO50TA15 PO (08:45)
[2020-10-13] MEDS ORDERED: POTA10TA6 PO (08:45)
[2020-10-13] MEDS ORDERED: LOSA100T57 PO (08:45)
[2020-10-13] MEDS ORDERED: HYDR-34 PO (08:45)
--- NOTE | 2020-10-13 08:50 | D/C HH Face to Face Order ---
D/C Face to Face Orders Reconcile Patient Problems Problems Reviewed?: Yes Instructions for Patient Via [facility] [employer], Patient Instructions/FollowUp: Follow up in clinic 1 week Physician to follow Patient: Lucy Trujillo Diet for Home: Regular Diet, Avoid Fatty Foods Patient Data-Allergies,Ht & Wt Patient Allergies: Coded Allergies: Penicillins (Verified Allergy, Mild, 04/19/18) Height (Feet): 5 Height (Inches): 8.00 Weight (Pounds): 238 Weight (Ounces): 5.0 Home Health Need/Face to Face Date of Face to Face: Oct 13, 2020 Clinical Findings: Generalized weakness and fatigue, Muscle weakness I have seen Pt [id number]: Yes Discharged To: Home Diagnosis/Conditions: Wound dehiscence after small bowel resection with wound vac Hypertension Elevated LFTs Patient is Homebound due to: Muscle weakness Homebound Status Due to the above stated illness, injury or surgical procedure (medical condition or diagnosis) and associated clinical findings, the patient is homebound because of his/her inability to leave home except with aid of a supportive device and/or person AND leaving the home requires a considerable and taxing effort or is medically contraindicated. Pt req the following assistanc: [facility] Nursing Orders Home Health Services Order: Nursing Services, Physical Therapy-Evaluate & Treat, Wound Care-Eval/Treat Home Health Infusion Therapy Line Start Date: Sep 28, 2020 Therapy Orders Therapy Specific Orders: Increase strength/endurance Certify Stmt I certify that this patient is under my care and that I, a nurse practitioner or a physician; a observation assistant working with me, had a face to face encounter that - meets the physician face to face encounter requirements with this patient as dated. YENI RUVALCABA DO Oct 13, 2020 08:50
[2020-10-13] MEDS: morphine INJ 4 MG/ML 1 ML (VIAL/SYRINGE) IVP PRN (10:19)
[2020-10-13] MEDS: HYDROcodone/APAP 7.5 MG/325 MG (LORTAB, LORCET PLUS) TABLET PO PRN ×3 (10:20→23:06)
[2020-10-13] MEDS: RT-ALBUTEROL/IPRATROPIUM 3 ML (DUONEB) VIAL INH SCH ×2 (10:26→21:02)
--- NOTE | 2020-10-13 10:35 | Progress Note - Cardiology ---
Cardiology SOAP Progress Note Subjective: Sitting up in bed States he feels good this morning No c/o CP or SOB No c/o palpitations Objective: I&O/Vital Signs 10/14/20 10/14/20 10/14/20 10/14/20 00:34 04:00 07:09 08:00 Temp 36.6 36.2 36.0 Pulse 69 70 85 Resp 16 20 18 B/P (MAP) 137/80 (99) 148/73 (98) 134/65 (88) Pulse Ox 94 92 97 94 O2 Delivery Room Air Room Air Room Air Room Air 10/14/20 08:00 Pulse Ox 94 O2 Delivery Room Air 10/13/20 23:59 Intake Total 2920 ml Balance 2920 ml Weight (Pounds): 238 Weight (Ounces): 5.0 Weight (Calculated Kilograms): 107.304438 Constitutional: AAO x 3 (oriented to self and place ) Respiratory: other (fair air entry; poor inspiratory effort) Cardiovascular: No JVD; tachycardia, S1 and S2 Gastrointestional: other (not palpated d/t recent surgery ) Extremities: other (mod bilat LE swelling) Neurologic/Psychiatric: grossly intact (moving extremities) Skin: pallor; No rash on exposed areas, No ulcerations on exposed areas Results/Procedures: Labs Laboratory Tests 10/13/20 12:25: Glucometer 117H 10/13/20 15:11: Glucometer 107 10/13/20 20:13: Glucometer 117H 10/14/20 06:03: Glucometer 99 Microbiology 09/30/20 Gram Stain - Final, Complete 09/30/20 Sputum Culture - Final, Complete YEAST 09/28/20 Blood Culture - Final, Complete No growth 09/28/20 Urine Culture - Final, Complete NO GROWTH A/P: Assessment: Wound dehiscence with fistula - wound vac placed - management per Dr. Ramos Sepsis - management per Medical services - resolved S/P right colon resection for colon cancer Sinus tachycardia - improved with BB tx Post op anemia - management per medical/surgical services Coronary artery disease, history of CABG x3 done in 2007. - Last cardiac catheterization was done on July 11, [address] Golden showing patent stent in the proximal LAD, small vessel disease distally, known occluded ZELAYA, patent vein graft to diagonal artery with good flow distally, patent vein graft to the right coronary artery with good flow distally, 50 percent ostial proximal left main stenosis, nondominant circumflex artery. COPD Obstructive sleep apnea, maintained on C Pap Questionable history of TIA. Labile hypertension History of orthostatic hypotension Hyperlipidemia - tolerates only very low dose statin Diabetes mellitus Carotid stenosis, mild nonobstructive disease bilaterally, monitored by Dr Golden History of chronic compensated left ventricular diastolic dysfunction, echocardiogram done in April 2019 showing ejection fraction 50-55 percent, grade 2 diastolic dysfunction, left atrium 4.6 cm, aortic valve trivial regurgitation, PA pressure 35-40 mmHg History of tobaccoism, patient has been abstinent from smoking since 2007. History of parathyroidectomy done in in November 2018. Plan: No new cardiac recs at this time Monitor labs Replace electrolytes Continue current regimen KVNG FRIEND Oct 13, 2020 10:35
[2020-10-13 12:00] VITALS: BP 139/72
[2020-10-13 15:46] VITALS: BP 131/73
--- NOTE | 2020-10-13 18:51 | Progress Note ---
Subjective Date Seen by a Provider: Oct 13, 2020 Time Seen by a Provider: 17:00 Subjective/Events-last exam Patient seen with Dr. Dailey. Patient reports doing well. Denies any issues. Tolerating diet. Reports that he is ready to go home. Focused Exam Time of Focused Exam: 17:49 Objective Exam Vital Signs Date Time Temp Pulse Resp B/P (MAP) Pulse Ox O2 Delivery O2 Flow Rate FiO2 10/13/20 15:46 36.6 71 18 131/73 (92) 93 Room Air 10/13/20 12:00 36.0 74 18 139/72 (94) 93 Room Air 10/13/20 10:26 92 Room Air 10/13/20 08:00 Room Air 10/13/20 08:00 36.2 69 20 145/71 (95) 94 Room Air 10/13/20 04:28 36.1 67 16 136/68 (90) 96 Room Air 10/12/20 23:58 36.2 69 20 140/71 (94) 94 Room Air 10/12/20 20:51 Room Air 10/12/20 20:45 36.4 74 16 133/64 (87) 93 Room Air 10/12/20 18:56 94 Room Air I & O 10/13/20 07:00 Intake Total 1510 ml Output Total 1100 ml Balance 410 ml Capillary Refill : Less Than 3 SecondsLess Than 3 Seconds General Appearance: No Apparent Distress, WD/WN Neck: Full Range of Motion, Normal Inspection Respiratory: No Accessory Muscle Use, No Respiratory Distress Cardiovascular: Regular Rate, Rhythm, No Edema Gastrointestinal: normal bowel sounds, non tender, soft Extremity: Normal Inspection, Normal Range of Motion Neurologic/Psychiatric: Alert, Oriented x3 Skin: Normal Color, Warm/Dry, Other (Abdominal incision C/D/I with wound vac in place.) Results Lab Laboratory Tests 10/12/20 20:47: Glucometer 120H 10/13/20 05:27: White Blood Count 8.1, Red Blood Count 4.01L, Hemoglobin 9.7L, Hematocrit 33L, Mean Corpuscular Volume 82, Mean Corpuscular Hemoglobin 24L, Mean Corpuscular Hemoglobin Concent 30L, Red Cell Distribution Width 17.1H, Platelet Count 370, Mean Platelet Volume 10.3, Immature Granulocyte % (Auto) 3, Neutrophils (%) (Auto) 69, Lymphocytes (%) (Auto) 16, Monocytes (%) (Auto) 9, Eosinophils (%) (Auto) 2, Basophils (%) (Auto) 1, Neutrophils # (Auto) 5.6, Lymphocytes # (Auto) 1.3, Monocytes # (Auto) 0.7, Eosinophils # (Auto) 0.1, Basophils # (Auto) 0.1, Immature Granulocyte # (Auto) 0.3H, Sodium Level 136, Potassium Level 3.5L, Chloride Level 101, Carbon Dioxide Level 23, Anion Gap 12, Blood Urea Nitrogen 8, Creatinine 1.08, Estimat Glomerular Filtration Rate > 60, BUN/Creatinine Ratio 7, Glucose Level 99, Calcium Level 8.0L, Corrected Calcium 8.8, Total Bilirubin 0.5, Aspartate Amino Transf (AST/SGOT) 149H, Alanine Aminotransferase (ALT/SGPT) 148H, Alkaline Phosphatase 137H, Total Protein 7.5, Albumin 3.0L 10/13/20 05:42: Glucometer 102 10/13/20 12:25: Glucometer 117H 10/13/20 15:11: Glucometer 107 Microbiology 09/30/20 Gram Stain - Final, Complete 09/30/20 Sputum Culture - Final, Complete YEAST 09/28/20 Blood Culture - Final, Complete No growth 09/28/20 Urine Culture - Final, Complete NO GROWTH Assessment/Plan Assessment/Plan Assess & Plan/Chief Complaint A 64 year old male with Metastatic Colon CA s/p SBR and washout VSS WBC 8.1 Hgb 9.7 AST - 149 ALT - 148 Elevated liver enzymes - Gallbladder US showed some sludge, No stones Continue diet Pain meds as needed Encourage ambulation and IS, PT ordered. Continue to monitor labs Fistula excised during surgery with most recent bowel resection. Abdominal incision clear of any cancer - thus will proceed with continued wound vac therapy YESENIA EASON [employer] PROFESSOR Oct 13, 2020 18:51
--- NOTE | 2020-10-13 18:56 | Progress Note - Cardiology ---
Cardiology SOAP Progress Note Subjective: No cp or palp or syncope No shortness of breath No n/v/d Some gen malaise and weakness Objective: I&O/Vital Signs 10/13/20 10/13/20 10/13/20 10/13/20 08:00 08:00 10:26 12:00 Temp 36.2 36.0 Pulse 69 74 Resp 20 18 B/P (MAP) 145/71 (95) 139/72 (94) Pulse Ox 94 92 93 O2 Delivery Room Air Room Air Room Air Room Air 10/13/20 15:46 Temp 36.6 Pulse 71 Resp 18 B/P (MAP) 131/73 (92) Pulse Ox 93 O2 Delivery Room Air 10/13/20 00:00 Intake Total 1210 ml Output Total 900 ml Balance 310 ml Weight (Pounds): 238 Weight (Ounces): 5.0 Weight (Calculated Kilograms): 107.830310 Constitutional: AAO x 3 (oriented to self and place ) Respiratory: other (fair air entry; poor inspiratory effort) Cardiovascular: No JVD; tachycardia, S1 and S2 Gastrointestional: other (not palpated d/t recent surgery ) Extremities: other (mod bilat LE swelling) Neurologic/Psychiatric: grossly intact (moving extremities) Skin: pallor; No rash on exposed areas, No ulcerations on exposed areas Results/Procedures: Labs Laboratory Tests 10/12/20 20:47: Glucometer 120H 10/13/20 05:27: White Blood Count 8.1, Red Blood Count 4.01L, Hemoglobin 9.7L, Hematocrit 33L, Mean Corpuscular Volume 82, Mean Corpuscular Hemoglobin 24L, Mean Corpuscular Hemoglobin Concent 30L, Red Cell Distribution Width 17.1H, Platelet Count 370, Mean Platelet Volume 10.3, Immature Granulocyte % (Auto) 3, Neutrophils (%) (Auto) 69, Lymphocytes (%) (Auto) 16, Monocytes (%) (Auto) 9, Eosinophils (%) (Auto) 2, Basophils (%) (Auto) 1, Neutrophils # (Auto) 5.6, Lymphocytes # (Auto) 1.3, Monocytes # (Auto) 0.7, Eosinophils # (Auto) 0.1, Basophils # (Auto) 0.1, Immature Granulocyte # (Auto) 0.3H, Sodium Level 136, Potassium Level 3.5L, Chloride Level 101, Carbon Dioxide Level 23, Anion Gap 12, Blood Urea Nitrogen 8, Creatinine 1.08, Estimat Glomerular Filtration Rate > 60, BUN/Creatinine Ratio 7, Glucose Level 99, Calcium Level 8.0L, Corrected Calcium 8.8, Total Bilirubin 0.5, Aspartate Amino Transf (AST/SGOT) 149H, Alanine Aminotransferase (ALT/SGPT) 148H, Alkaline Phosphatase 137H, Total Protein 7.5, Albumin 3.0L 10/13/20 05:42: Glucometer 102 10/13/20 12:25: Glucometer 117H 10/13/20 15:11: Glucometer 107 Microbiology 09/30/20 Gram Stain - Final, Complete 09/30/20 Sputum Culture - Final, Complete YEAST 09/28/20 Blood Culture - Final, Complete No growth 09/28/20 Urine Culture - Final, Complete NO GROWTH A/P: Assessment: Wound dehiscence with fistula - wound vac placed - management per Dr. Ramos Sepsis - management per Medical services - resolved S/P right colon resection for colon cancer Sinus tachycardia - improved with BB tx Post op anemia - management per medical/surgical services Coronary artery disease, history of CABG x3 done in 2007. - Last cardiac catheterization was done on July 11, [address] Golden showing patent stent in the proximal LAD, small vessel disease distally, known occluded ZELAYA, patent vein graft to diagonal artery with good flow distally, patent vein graft to the right coronary artery with good flow distally, 50 perce nt ostial proximal left main stenosis, nondominant circumflex artery. COPD Obstructive sleep apnea, maintained on C Pap Questionable history of TIA. Labile hypertension History of orthostatic hypotension Hyperlipidemia - tolerates only very low dose statin Diabetes mellitus Carotid stenosis, mild nonobstructive disease bilaterally, monitored by Dr Golden History of chronic compensated left ventricular diastolic dysfunction, echocardiogram done in April 2019 showing ejection fraction 50-55 percent, grade 2 diastolic dysfunction, left atrium 4.6 cm, aortic valve trivial regurgitation, PA pressure 35-40 mmHg History of tobaccoism, patient has been abstinent from smoking since 2007. History of parathyroidectomy done in in November 2018. Plan: No new cardiac recs at this time Monitor labs Replace electrolytes Continue current regimen HANNAH GARRETT MD FACP [facility] Oct 13, 2020 18:56
[2020-10-13 20:00] VITALS: BP 130/71
[2020-10-13] MEDS: SERTRALINE 50 MG (ZOLOFT) TABLET PO SCH (21:19)
[2020-10-14 00:34] VITALS: BP 137/80
[2020-10-14 04:00] VITALS: BP 148/73
[2020-10-14] MEDS: LEVOTHYROXINE 25 MCG (LEVOTHROID) TAB PO SCH (06:04)
[2020-10-14] MEDS: inSUlin ASPART (NovoLOG) 1 UNIT/0.01 ML (CHARGE PER UNIT) SC SCH ×2 (06:04→12:23)
[2020-10-14] MEDS: RT-ALBUTEROL/IPRATROPIUM 3 ML (DUONEB) VIAL INH SCH (07:08)
[2020-10-14 08:00] VITALS: BP 134/65
[2020-10-14] MEDS: KCL 10 MEQ TAB (MICRO K) PO SCH (08:01)
[2020-10-14] MEDS: ENOXAPARIN 40 MG/0.4 ML (LOVENOX) SYR SC SCH (08:01)
[2020-10-14] MEDS: amLODIPine 5 MG (NORVASC) TAB PO SCH (08:01)
[2020-10-14] MEDS: meTOprolol TARTRATE 50 MG (LOPRESSOR) TAB PO SCH (08:01)
[2020-10-14] MEDS: PANTOPRAZOLE 40 MG (PROTONIX) TAB PO SCH (08:02)
[2020-10-14] MEDS: LOSARTAN 100 MG (COZAAR) TABLET PO SCH (08:02)
[2020-10-14] MEDS: HYDROCORTISONE 2.5% CREAM (ANUSOL-HC) 30 GM TOP SCH (08:05)
--- NOTE | 2020-10-14 08:20 | Progress Note - Hospitalist ---
JOJO GRIFFIN MED STUDENT 10/14/20 0820: Subjective HPI/CC On Admission Date Seen by Provider: Oct 14, 2020 Time Seen by Provider: 08:05 Fwup wound dehiscence with fistula, S/P right colon resection for colon cancer, bowel resection for bowel obstruction, septic shock. Subjective/Events-last exam Pt sitting up at bedside with . He denies pain, shortness of breath, N/V and weakness. He was unable to go home yesterday as planned due to an insurance issue with his wound vac and hopes to be able to leave today. Focused Exam Time of Focused Exam: 17:49 Objective Exam Vital Signs Vital Signs Date Time Temp Pulse Resp B/P (MAP) Pulse Ox O2 Delivery O2 Flow Rate FiO2 10/14/20 07:09 97 Room Air 10/14/20 04:00 36.2 70 20 148/73 (98) 10/09/20 10:09 1.00 Capillary Refill : Less Than 3 SecondsLess Than 3 Seconds General Appearance: No Apparent Distress, WD/WN Neck: Normal Inspection, Non Tender Respiratory: Chest Non Tender, Lungs Clear, Normal Breath Sounds, No Accessory Muscle Use, No Respiratory Distress Cardiovascular: Regular Rate, Rhythm, No Edema, Normal Peripheral Pulses Gastrointestinal: Normal Bowel Sounds, Non Tender, Soft, Other (wound vac in place) Extremity: Non Tender, No Pedal Edema Neurologic/Psychiatric: Alert, Oriented x3, Normal Mood/Affect Results/Procedures Lab Patient resulted labs reviewed. Assessment/Plan Assessment and Plan Assess & Plan/Chief Complaint 1. Severe Septic Shock due to Wound Dehiscence with fistula from recent right sided colectomy for colon cancer--S/P Exp Lap with bowel obstruction and bowel resection x2--and subsequent surgery for abdominal cleanout and wound vac placement, wound vac in place, zosyn discontinued, no longer on eraxis, NGT removed and progressed to normal diet tolerating well. Will be discharged today. 2. Hypertension-- continue Losartan 100 mg daily and add 5 mg Amlodipine BID; now controlled 3. DMII--on accuchecks with SSI 4. COPD--on duoneb routinely 5. Weakness--PT started - walks around corridor multiple times per day; reports feeling stronger. Discussed plans to go home today. 6. Hypokalemia--replace potassium orally 20 mEq today 7. Anemia -- Stable 8. MDD -- Sertraline as taken at home; Trazodone PRN. Mood stable. 9. Elevated LFTs -- U/S of gallbladder normal; recheck in 1 week in office. Advised low-fat diet; return to hospital for worsening pain, N/V, jaundice Diagnosis/Problems Diagnosis/Problems (1) COPD (chronic obstructive pulmonary disease) Status: Chronic (2) Wound dehiscence Status: Acute (3) Hypertension Status: Chronic (4) Status post right hemicolectomy Status: Acute (5) Diabetes (6) MDD (major depressive disorder) Status: Chronic YENI RUVALCABA DO 10/14/20 1734: Subjective HPI/CC On Admission Date Seen by Provider: Oct 14, 2020 Supervisory-Addendum Brief Verification & Attestation Participated in pt care: history, physical Personally performed: exam, history, supervision of care Care discussed with: Medical Student Procedures: n/a Patient seen and evaluated and agree with above assessment/plan--home today with wound vac and home health. JOJO GRIFFIN MED STUDENT Oct 14, 2020 08:20 YENI RUVALCABA DO Oct 14, 2020 17:34
--- NOTE | 2020-10-14 10:42 | Physical Therapy Progress Note ---
Therapy Progress Note Patient was to dismiss to home yesterday, however, did not. Patient is independent with all functional mobility safely. PT instructed nursing staff to place wound vac on FWW and have patient and spouse ambulate in hallway PRN. Nursing and patient/spouse agree. PT to dismiss patient from services. AUBREY GRANADOS PT Oct 14, 2020 10:42
--- NOTE | 2020-10-14 11:17 | Progress Note - Cardiology ---
Cardiology SOAP Progress Note Subjective: In bed Spouse at the bedside States he feels good this morning No c/o CP or SOB Objective: I&O/Vital Signs 10/14/20 10/14/20 10/14/20 10/14/20 00:34 04:00 07:09 08:00 Temp 36.6 36.2 36.0 Pulse 69 70 85 Resp 16 20 18 B/P (MAP) 137/80 (99) 148/73 (98) 134/65 (88) Pulse Ox 94 92 97 94 O2 Delivery Room Air Room Air Room Air Room Air 10/14/20 08:00 Pulse Ox 94 O2 Delivery Room Air 10/13/20 23:59 Intake Total 2920 ml Balance 2920 ml Weight (Pounds): 238 Weight (Ounces): 5.0 Weight (Calculated Kilograms): 107.808041 Constitutional: AAO x 3 (oriented to self and place ) Respiratory: other (fair air entry; poor inspiratory effort) Cardiovascular: No JVD; tachycardia, S1 and S2 Gastrointestional: other (not palpated d/t recent surgery ) Extremities: other (mod bilat LE swelling) Neurologic/Psychiatric: grossly intact (moving extremities) Skin: pallor; No rash on exposed areas, No ulcerations on exposed areas Results/Procedures: Labs Laboratory Tests 10/13/20 12:25: Glucometer 117H 10/13/20 15:11: Glucometer 107 10/13/20 20:13: Glucometer 117H 10/14/20 06:03: Glucometer 99 Microbiology 09/30/20 Gram Stain - Final, Complete 09/30/20 Sputum Culture - Final, Complete YEAST 09/28/20 Blood Culture - Final, Complete No growth 09/28/20 Urine Culture - Final, Complete NO GROWTH Laboratory Tests 10/13/20 05:27 A/P: Assessment: Wound dehiscence with fistula - wound vac placed - management per Dr. Ramos Sepsis - management per Medical services - resolved S/P right colon resection for colon cancer Sinus tachycardia - improved with BB tx Post op anemia - management per medical/surgical services Coronary artery disease, history of CABG x3 done in 2007. - Last cardiac catheterization was done on July 11, [address] Golden showing patent stent in the proximal LAD, small vessel disease distally, known occluded ZELAYA, patent vein graft to diagonal artery with good flow distally, patent vein graft to the right coronary artery with good flow distally, 50 percent ostial proximal left main stenosis, nondominant circumflex artery. COPD Obstructive sleep apnea, maintained on C Pap Questionable history of TIA. Labile hypertension History of orthostatic hypotension Hyperlipidemia - tolerates only very low dose statin Diabetes mellitus Carotid stenosis, mild nonobstructive disease bilaterally, monitored by Dr Golden History of chronic compensated left ventricular diastolic dysfunction, echocardiogram done in April 2019 showing ejection fraction 50-55 percent, grade 2 diastolic dysfunction, left atrium 4.6 cm, aortic valve trivial reg urgitation, PA pressure 35-40 mmHg History of tobaccoism, patient has been abstinent from smoking since 2007. History of parathyroidectomy done in in November 2018. Plan: No new cardiac recs at this time Monitor labs Replace electrolytes Continue current regimen KVNG FRIEND Oct 14, 2020 11:17
[2020-10-14 12:00] VITALS: BP 139/73
--- NOTE | 2020-10-14 13:23 | Progress Note - Cardiology ---
Cardiology SOAP Progress Note Subjective: Feels well No cp or palp or syncope No shortness of breath Gen malaise and weakness have improved Wishes to go home Objective: I&O/Vital Signs 10/14/20 10/14/20 10/14/20 10/14/20 04:00 07:09 08:00 08:00 Temp 36.2 36.0 Pulse 70 85 Resp 20 18 B/P (MAP) 148/73 (98) 134/65 (88) Pulse Ox 92 97 94 94 O2 Delivery Room Air Room Air Room Air Room Air 10/14/20 12:00 Temp 36.0 Pulse 70 Resp 18 B/P (MAP) 139/73 (95) Pulse Ox 94 O2 Delivery Room Air 10/14/20 00:00 Intake Total 2920 ml Balance 2920 ml Weight (Pounds): 238 Weight (Ounces): 5.0 Weight (Calculated Kilograms): 107.753535 Constitutional: AAO x 3 (oriented to self and place ) Respiratory: other (fair air entry; poor inspiratory effort) Cardiovascular: No JVD; tachycardia, S1 and S2 Gastrointestional: other (not palpated d/t recent surgery ) Extremities: other (mod bilat LE swelling) Neurologic/Psychiatric: grossly intact (moving extremities) Skin: pallor; No rash on exposed areas, No ulcerations on exposed areas Results/Procedures: Labs Laboratory Tests 10/13/20 15:11: Glucometer 107 10/13/20 20:13: Glucometer 117H 10/14/20 06:03: Glucometer 99 Microbiology 09/30/20 Gram Stain - Final, Complete 09/30/20 Sputum Culture - Final, Complete YEAST 09/28/20 Blood Culture - Final, Complete No growth 09/28/20 Urine Culture - Final, Complete NO GROWTH A/P: Assessment: Wound dehiscence with fistula - wound vac placed - management per Dr. Ramos Sepsis - management per Medical services - resolved S/P right colon resection for colon cancer Sinus tachycardia - improved with BB tx Post op anemia - management per medical/surgical services Coronary artery disease, history of CABG x3 done in 2007. - Last cardiac catheterization was done on July 11, [address] Golden showing patent stent in the proximal LAD, small vessel disease distally, known occluded ZELAYA, patent vein graft to diagonal artery with good flow distally, patent vein graft to the right coronary artery with good flow distally, 50 percent ostial proximal left main stenosis, nondominant circumflex artery. COPD Obstructive sleep apnea, maintained on C Pap Questionable history of TIA. Labile hypertension History of orthostatic hypotension Hyperlipidemia - tolerates only very low dose statin Diabetes mellitus Carotid stenosis, mild nonobstructive disease bilaterally, monitored by Dr Golden History of chronic compensated left ventricular diastolic dysfunction, echocardiogram done in April 2019 showing ejection fraction 50-55 percent, grade 2 diastolic dysfunction, left atrium 4.6 cm, aortic valve trivial regurgitation, PA pressure 35-40 mmHg History of tobaccoism, patient has been abstinent from smoking since 2007. History of parathyroidectomy done in in November 2018. Plan: We have advised outpt cardiac f/u with his dairy management specialist Dr Golden. HANNAH GARRETT MD FACP [facility] Oct 14, 2020 13:23
== END 2020-10-14 13:23 | disposition home health service (06) | DRG 907 ==
LOC: EDUNIT# 19:19 → ER 19:20 → 4TH 20:30 → ICU 09-29 18:15 → 4TH 10-03 12:38
PROVIDERS: ADMIT Surgery; ATTEND Surgery
PROC: 5A1945Z Respiratory Ventilation, 24-96 Consecutive Hours (ICD-10-PCS; 2020-09-29)
PROC: 0BH17EZ Insertion of Endotracheal Airway into Trachea, Via Natural or Artificial Opening (ICD-10-PCS; 2020-09-29)
PROC: 0DB80ZZ Excision of Small Intestine, Open Approach (ICD-10-PCS; principal; 2020-09-29 15:14)
PROC: 0WQFXZZ Repair Abdominal Wall, External Approach (ICD-10-PCS; 2020-09-30)
PROC: 2W13X6Z Compression of Abdominal Wall using Pressure Dressing (ICD-10-PCS; 2020-09-30)
DX: T81.31XA Disruption of external operation (surgical) wound, not elsewhere classified, initial encounter (principal); J96.00 Acute respiratory failure, unspecified whether with hypoxia or hypercapnia; A41.9 Sepsis, unspecified organism; R65.21 Severe sepsis with septic shock; J18.9 Pneumonia, unspecified organism; T81.83XA Persistent postprocedural fistula, initial encounter; K43.0 Incisional hernia with obstruction, without gangrene; N39.0 Urinary tract infection, site not specified; N17.9 Acute kidney failure, unspecified; C78.6 Secondary malignant neoplasm of retroperitoneum and peritoneum; E46 Unspecified protein-calorie malnutrition; I25.10 Atherosclerotic heart disease of native coronary artery without angina pectoris; Z95.1 Presence of aortocoronary bypass graft; Z95.5 Presence of coronary angioplasty implant and graft; Z90.49 Acquired absence of other specified parts of digestive tract; Z85.038 Personal history of other malignant neoplasm of large intestine; Z88.0 Allergy status to penicillin; Z79.82 Long term (current) use of aspirin; Z87.891 Personal history of nicotine dependence; Z86.16 Personal history of COVID-19; J43.9 Emphysema, unspecified; Z20.822 Contact with and (suspected) exposure to COVID-19; I25.2 Old myocardial infarction; E78.00 Pure hypercholesterolemia, unspecified; I10 Essential (primary) hypertension; Z86.73 Personal history of transient ischemic attack (TIA), and cerebral infarction without residual deficits; K21.9 Gastro-esophageal reflux disease without esophagitis; K57.90 Diverticulosis of intestine, part unspecified, without perforation or abscess without bleeding; M19.90 Unspecified osteoarthritis, unspecified site; E03.9 Hypothyroidism, unspecified; Z79.4 Long term (current) use of insulin; I95.9 Hypotension, unspecified; D64.9 Anemia, unspecified; D72.829 Elevated white blood cell count, unspecified; E11.65 Type 2 diabetes mellitus with hyperglycemia; Z68.31 Body mass index [BMI] 31.0-31.9, adult; G47.33 Obstructive sleep apnea (adult) (pediatric); I65.29 Occlusion and stenosis of unspecified carotid artery
CPT/HCPCS: 36415; 36569; 36600; 71045; 74019; 74177; 76705; 76937; 80048; 80053; 80202; 81000; 82150; 82728; 82805; 82962; 83540; 83605; 83690; 83735; 84100; 84134; 84145; 84478; 85007; 85014; 85018; 85025; 85027; 85610; 85730; 86850; 86900; 86901; 86920; 87040; 87070; 87081; 87088; 87205; 87449; 87635; 87899; 88309; 93005; 93041; 94002; 94003; 94640; 94664; 94760; 94799; 96361; 96365; 96367; 96375; 96376

== ENCOUNTER → 2020-11-11 | Outpatient (CLI) | payer MEDICARE, OTHER ==
[~2020-11-11] MED LIST changes: +AMLO-250 PO; +HYDR-34 PO; +LOSA100T57 PO; +METO50TA15 PO; +METR-145 PO; +ONDA4TAB11 PO; +POTA10TA6 PO; +TRZ50T PO
--- NOTE | 2020-11-11 13:15 | Diagnostic Imaging Report ---
INDICATION: Colon cancer, initial staging. Serum blood glucose level at the time of injection is 142 mg/dL. Patient was administered 14.7 mCi F-18 FDG intravenously in left hand and PET imaging was performed from the top of skull to mid thighs. Noncontrast CT was also performed for attenuation correction and anatomic correlation. No prior PET/CT studies are available for comparison. Comparison is made with prior CT abdomen and pelvis study from 09/28/2020. Symmetric activity throughout the brain is noted. Soft tissues of the neck are unremarkable. No mediastinal or hilar hypermetabolism is identified. No pulmonary parenchymal hypermetabolism is identified. Postsurgical changes in the abdomen and pelvis are noted. There are numerous dilated and fluid-filled small bowel loops from prior surgery. Patient appears to have undergone a right hemicolectomy. There now appear to be several subcapsular hepatic fluid collections along the right lobe. There are areas of perihepatic hypermetabolism. There are also several small areas of uptake, one in particular in the subhepatic right upper quadrant where there is some soft tissue measuring 3.7 cm. SUV max of 6.6. There are other foci of uptake which are difficult to determine if these arising from the small bowel loops versus between small bowel loops. In the deep pelvis anterior to the rectum and posterior to the seminal vesicles there is some soft tissue. This demonstrates SUV max 7.5 and is indeterminate. Features are concerning for peritoneal implants within the abdomen and pelvis as well as along the liver surface. Note is made of a small right pleural effusion. IMPRESSION: There are postsurgical changes in the abdomen from a right hemicolectomy. The patient has developed subcapsular fluid collections along the surface of the liver. There are areas of hypermetabolism along the surface of the liver as well as multiple locations within the abdomen and pelvis which appears to be separate from bowel loops. This is somewhat concerning for peritoneal implants although no significant ascites is present in the abdomen or pelvis. A close follow-up and correlation with conventional CT abdomen and pelvis study with IV contrast would be useful for further characterization. Dictated by: Dictated on workstation # [id number]
== END ==
LOC: RAD 08:55
PROVIDERS: ATTEND Internal Medicine Hematology & Oncology
DX: C18.9 Malignant neoplasm of colon, unspecified (principal); Z90.49 Acquired absence of other specified parts of digestive tract; Z98.890 Other specified postprocedural states
CPT/HCPCS: 78815; A9552

== ENCOUNTER 2020-11-19 05:33 | Outpatient (CLI) | payer MEDICARE, OTHER ==
[~2020-11-19] VITALS: Ht 175.3 cm; Wt 86.8 kg
[2020-11-19] MEDS ORDERED: HYDR-3820 PO (10:20)
[2020-11-19] MEDS ORDERED: POTA10TA36 PO (10:20)
[2020-11-19] MEDS ORDERED: MORP-68 PO (10:20)
[2020-11-19] MEDS ORDERED: ATOR10TA66 PO (10:20)
[2020-11-19] MEDS ORDERED: LOSA100T57 PO (10:20)
[2020-11-19] MEDS ORDERED: AMLO-250 PO (10:20)
[2020-11-19] MEDS ORDERED: CETI10TA17 PO (10:20)
[2020-11-19] MEDS ORDERED: METO100T12 PO (10:20)
== END 2020-11-19 10:33 | disposition home or self-care (01) ==
LOC: PREOP 05:33
PROVIDERS: ATTEND Surgery
DX: Z01.818 Encounter for other preprocedural examination (principal)

== ENCOUNTER 2020-11-20 14:45 | Outpatient (RCR) | payer MEDICARE, OTHER ==
[2020-11-07 13:13] LABS: BASOPHILS # (AUTO) 0.1 10^3/uL (0.0-0.1); BASOPHILS % (AUTO) 1 % (0-10); EOSINOPHILS # (AUTO) 0.3 10^3/uL (0.0-0.3); EOSINOPHILS % (AUTO) 3 % (0-10); HEMATOCRIT 36 % (40-54); HEMOGLOBIN 10.9 g/dL (13.3-17.7); LYMPHOCYTES # (AUTO) 1.7 10^3/uL (1.0-4.0); LYMPHOCYTES % (AUTO) 16 % (12-44); MEAN CORPUSCULAR HEMOGLOBIN 24 pg (25-34); MEAN CORPUSCULAR HGB CONC 30 g/dL (32-36); MEAN CORPUSCULAR VOLUME 81 fL (80-99); MEAN PLATELET VOLUME 9.4 fL (9.0-12.2); MONOCYTES # (AUTO) 0.9 10^3/uL (0.0-1.0); MONOCYTES % (AUTO) 9 % (0-12); NEUTROPHILS # (AUTO) 7.3 10^3/uL (1.8-7.8); NEUTROPHILS % (AUTO) 71 % (42-75); PLATELET COUNT 471 10^3/uL (130-400); WHITE BLOOD COUNT 10.3 10^3/uL (4.3-11.0)
[2020-11-07 13:34] LABS: ALANINE AMINOTRANSFERASE 26 U/L (0-55); ALBUMIN 3.8 GM/DL (3.2-4.5); ALKALINE PHOSPHATASE 118 U/L (40-136); BILIRUBIN,TOTAL 0.5 MG/DL (0.1-1.0); BUN/CREATININE RATIO 13; CALCIUM 10.2 MG/DL (8.5-10.1); CARBON DIOXIDE 23 MMOL/L (21-32); CHLORIDE 98 MMOL/L (98-107); CREATININE SERUM 1.17 MG/DL (0.60-1.30); GFR ESTIMATED > 60; GLUCOSE 124 MG/DL (70-105); POTASSIUM 4.8 MMOL/L (3.6-5.0); SODIUM 135 MMOL/L (135-145); TOTAL PROTEIN 9.1 GM/DL (6.4-8.2)
[~2020-11-20] VITALS: Ht 175.3 cm; Wt 82.6 kg
[~2020-11-20 14:45] MED LIST changes: +ATOR10TA66 PO; +CETI10TA17 PO; +METO100T12 PO; +MORP-68 PO; +POTA10TA36 PO; +fentaNYL INJ 100 MCG/2 ML (CANCER CENTER) INJ ONE; +fentaNYL INJ 100 MCG/2 ML (CANCER CENTER) INJ PRN; +fentaNYL INJ 100 MCG/2 ML (CANCER CENTER) ONE
[2020-11-21] MEDS ORDERED: D5W 500 ML IV (CANCER CTR) 500 ML IV SCH (10:30)
[2020-11-21] MEDS ORDERED: OXALIPLATIN 100 MG, OXALIPLATIN (GENERIC) 30 MG in D5W 250 ML IVPB (CANCER CTR) 250 ML IV SCH (10:30)
[2020-11-21] MEDS ORDERED: FOSAPREPITANT (CANCER CENTER) 150 MG in NS (IVPB) CANCER CENTER ONLY 150 ML IV SCH (10:30)
[2020-11-21] MEDS ORDERED: LEUCOVORIN CALCIUM 400 MG in D5W 250 ML IVPB (CANCER CTR) 250 ML IV SCH (10:45)
[2020-11-24] MEDS ORDERED: POTA10TA6 PO (10:35)
[2020-11-24] MEDS ORDERED: BISA10SU8 RC (10:35)
[2020-11-24] MEDS ORDERED: ONDA8TAB15 PO (10:35)
[2020-12-04] MEDS ORDERED: LORA2ORA PO (09:44)
[2020-12-04] MEDS ORDERED: HYDR2VIA2 IVP (09:44)
[2020-12-04] MEDS ORDERED: ONDA8TAB13 PO (09:44)
[2020-12-04] MEDS ORDERED: FENT1PAT60 TD (09:44)
[2020-12-04] MEDS ORDERED: HYOS0.1283 SL (12:38)
== END 2021-02-05 | disposition home or self-care (01) ==
LOC: ONC 14:45
PROVIDERS: ATTEND Internal Medicine Hematology & Oncology
DX: C18.0 Malignant neoplasm of cecum (principal); C48.2 Malignant neoplasm of peritoneum, unspecified; G89.3 Neoplasm related pain (acute) (chronic); I10 Essential (primary) hypertension; J44.9 Chronic obstructive pulmonary disease, unspecified; I25.10 Atherosclerotic heart disease of native coronary artery without angina pectoris; E78.2 Mixed hyperlipidemia; Z90.49 Acquired absence of other specified parts of digestive tract
CPT/HCPCS: 80053; 82378; 85025; 96374; G0463; 99213

== ENCOUNTER 2020-11-21 09:20 | Day surgery (SDC) | payer MEDICARE, OTHER ==
[~2020-11-21] VITALS: Ht 175.3 cm; Wt 86.8 kg
[2020-11-21] VITALS (10 sets, daily range): BP systolic 99–121; BP diastolic 56–68
[~2020-11-21 09:20] MED LIST changes: -fentaNYL INJ 100 MCG/2 ML (CANCER CENTER) INJ ONE; -fentaNYL INJ 100 MCG/2 ML (CANCER CENTER) INJ PRN; -fentaNYL INJ 100 MCG/2 ML (CANCER CENTER) ONE
[2020-11-21] MEDS ORDERED: ceFAZolin 2 GM IV Premixed 50 ML IV ONE (09:30)
[2020-11-21] MEDS ORDERED: LACTATED RINGERS 1,000 ML IV PRN (09:30)
--- NOTE | 2020-11-21 09:31 | Progress Note-Pre Operative ---
Pre-Operative Progress Note H&P Reviewed The H&P was reviewed, patient examined and no changes noted. Time Seen by Provider: 09:28 Date H&P Reviewed: Nov 21, 2020 Time H&P Reviewed: : Pre-Operative Diagnosis: Venous insufficiency, Metastatic Colon CA BEBE MARTIN DO Nov 21, 2020 09:30
[2020-11-21] MEDS ORDERED: LIDOCAINE/EPI 1%-1:100,000 (XYLOCAINE) 20ML ONE (09:39)
[2020-11-21] MEDS ORDERED: HEParin (CENTRAL IV FLUSH) 500 UNIT/5 ML SYR ONE (09:39)
[2020-11-21] MEDS ORDERED: 0.9% SODIUM CHLORIDE PF INJ 20 ML VIAL ONE (09:39)
[2020-11-21] MEDS ORDERED: NS IV 1000 ML 1,000 ML IV ONE (09:45)
[2020-11-21] MEDS ORDERED: PROPOFOL INJECTION 50 ML IV ONE (09:46)
[2020-11-21] MEDS ORDERED: CLINDAMYCIN 600 MG/4ML (CLEOCIN) VIAL ONE (12:12)
[2020-11-21] MEDS ORDERED: NS (IVPB) 100 ML ONE (12:18)
[2020-11-21] MEDS ORDERED: CLINDAMYCIN 600 MG/50 ML IVPB 50 ML IV ONE (12:45)
--- NOTE | 2020-11-21 12:48 | Progress Note-Post Operative ---
Post-Operative Progess Note Surgeon (s)/Sign Language Translator (s) Surgeon BEBE MARTIN DO Sign Language Translator: none Pre-Operative Diagnosis Venous insufficiency, Metastatic Colon CA Post-Operative Diagnosis same Procedure & Operative Findings Date of Procedure 11/21/20 Procedure Performed/Findings PROCEDURE: [Right] subclavian vein port placement using ultrasound guidance. COMPLICATIONS: None. INDICATIONS: The patient is a 64 year old male with metastatic colon CA and venous insufficiency. Patient understands the risks and benefits of portplacement and wished to proceed with the procedure. Consent was signed on the chart. PROCEDURE: The patient was taken to the operating suite, was prepped and draped in the sterile fashion. A surgical pause was performed. Local anesthetic was infiltrated at the clavicle and along the tract to the right anterior chest, where more local was placed so the pocket could be created. Using an 18 gauge finder needle with negative inspiration the right subclavian vein was accessed on the first attempt and dark nonpulsatile blood was withdrawn. The wire was inserted and fluoroscopy assured proper placement. The needle was removed. The regular wire was inserted and fluoroscopy assured proper placement. The wire was then secured. A #11 blade scalpel was used to make an incision over the right chest and along guidewire. Cautery was used to dissect down to the pectoral fascia. A pocket was created with blunt dissection. The dilator sheath was then advanced over the wire under fluoroscopy and the dilator and wire were removed. The Groshong catheter was inserted through the sheath and the sheath was then removed. The Groshong wire was removed. The catheter was then tunneled to the right chest pocket. Fluoroscopy was used to cut to length and this was then attached to the port which was then placed within the pocket. The port was then accessed without difficulty. It was then flushed with saline and then heparin. The subcutaneous tissues were then reapproximated using 3-0 Vicryl. Finally the skin was closed with 4-0 undyed monocryl, 3 interrupted sutures. The areas were then washed and dried. Skin Affix was placed over incision. The insertion point of the neck Skin Affix was placed over the incision. The patient tolerated the procedure well without complication and was taken to recovery room in stable condition. Anesthesia Type IV sedation by [facility] [employer] Estimated Blood Loss Estimated blood loss (mL): scant Specimens/Packing Specimens Removed BEBE Chang DO Nov 21, 2020 12:48
--- NOTE | 2020-11-21 12:49 | Discharge Inst-Surgical ---
Discharge Inst-Surgical Depart Medication/Instructions New, Converted or Re-Newed RX: Other (use home meds) Patient Instructions Follow up Appt: Make appointment for 1 week. [phone] Instructions: No lifting greater than 20 pounds. No strenuous activity. May shower in 24 hours, no tub bath or soaking. Use incentive spirometer at home as directed. No Smoking Skin/Wound Care: May remove bandages in am. You need to leave the Dermabond on incision it will fall off on it's own. Symptoms to Report: Appetite Changes, Extremity Discoloration, Numbness/Tingling, Swelling Increased, Bleeding Excessive, Eyesight Changes, Pain Increased, Urine Color Change, Constipation(Persistent), Fever over 101 degree F, Pain/Pressure in chest, Urinating Difficulty, Cough Up/Vomit Blood, Heart Beat Irreg/Pounding, Pain/Pressure in jaw, Cramps in feet or legs, Lightheadedness, Pain/Pressure in shoulder, Diarrhea(Persistent), Memory Changes Suddenly, Questions/Concerns, Weight gain consecutive days, Dizziness/Fainting, Nausea/Vomiting, Shortness of Breath, Weight gain over 2 pounds If questions or concerns contact your physician Or seek help at emergency department. Activity Activity as Tolerated: Yes Activity Instructions: Avoid Stress to Incision Diet Discharge Diet: No Restrictions Diet After 24 Hours: Clear Liquid if Nauseous If Any Problems/Questions/Issu: Contact Your Physician, Go to Emergency Room Skin/Wound Care Infection Signs and Symptoms: Increased Redness, Foul Odor of Wound, Increased Drainage, Skin Itchy or Has a Rash, Increased Swelling, Temperature Above 101 F Bathing Instructions: Shower Stitches/[place]/Dermabond Dis: BEBE Degroot DO Nov 21, 2020 12:49
[2020-11-21] MEDS ORDERED: ONDANSETRON 4 MG/2 ML (SDV) Z0FRAN IVP PRN (13:00)
[2020-11-21] MEDS ORDERED: fentaNYL INJ 100 MCG/2 ML AMP IVP ONE (13:00)
--- NOTE | 2020-11-21 13:12 | Diagnostic Imaging Report ---
INDICATION: Port placement. TECHNIQUE: Two intraprocedural images right upper chest. FINDINGS/ IMPRESSION: The hospital radiology department provided fluoroscopic imaging in support of an interventional procedure. A radiologist was not present. Please reference the operating provider's procedure note. Fluoroscopy Time: 4.7 seconds. Intraprocedural image demonstrates a right subclavian infusaport catheter to be present. Tip is projecting over the level of the SVC. Dictated by: Dictated on workstation # [id number]
--- NOTE | 2020-11-21 13:14 | Anesthesia-General Post-Op ---
MAC Patient Condition Mental Status/LOC: Same as Preop Cardiovascular: Satisfactory Nausea/Vomiting: Absent Respiratory: Satisfactory Pain: Controlled Complications: Absent Post Op Complications Complications None Follow Up Care/Instructions Patient Instructions None needed. Anesthesiology Discharge Order Discharge Order Patient is doing well, no complaints, stable vital signs, no apparent adverse anesthesia problems. No complications reported per nursing. ZACK DELEON CRNA Nov 21, 2020 13:14
== END 2020-11-21 15:00 | disposition home or self-care (01) ==
LOC: SDC 09:20
PROVIDERS: ATTEND Surgery
DX: C78.5 Secondary malignant neoplasm of large intestine and rectum (principal); I87.2 Venous insufficiency (chronic) (peripheral); I10 Essential (primary) hypertension; I25.10 Atherosclerotic heart disease of native coronary artery without angina pectoris; E11.40 Type 2 diabetes mellitus with diabetic neuropathy, unspecified; K21.9 Gastro-esophageal reflux disease without esophagitis; C48.2 Malignant neoplasm of peritoneum, unspecified; E78.2 Mixed hyperlipidemia; G47.33 Obstructive sleep apnea (adult) (pediatric); J44.9 Chronic obstructive pulmonary disease, unspecified; G89.29 Other chronic pain; E66.9 Obesity, unspecified; Z68.28 Body mass index [BMI] 28.0-28.9, adult; I65.23 Occlusion and stenosis of bilateral carotid arteries; Z79.51 Long term (current) use of inhaled steroids; Z79.82 Long term (current) use of aspirin; Z79.899 Other long term (current) drug therapy; Z79.01 Long term (current) use of anticoagulants; Z79.84 Long term (current) use of oral hypoglycemic drugs; Z88.0 Allergy status to penicillin; Z87.891 Personal history of nicotine dependence; Z86.73 Personal history of transient ischemic attack (TIA), and cerebral infarction without residual deficits; Z95.5 Presence of coronary angioplasty implant and graft; Z95.1 Presence of aortocoronary bypass graft; Z80.8 Family history of malignant neoplasm of other organs or systems
CPT/HCPCS: 36561; 76000; 82947; 87081; C1788

== ENCOUNTER 2020-11-22 12:25 | Inpatient (IN) | payer MEDICARE, OTHER ==
[~2020-11-22] VITALS: Ht 172.7 cm; Wt 92.0 kg
[2020-11-22] MEDS ORDERED: fentaNYL INJ 100 MCG/2 ML AMP IVP ONE (12:45)
[2020-11-22] MEDS ORDERED: ONDANSETRON 4 MG/2 ML (SDV) Z0FRAN IVP ONE (12:45)
[2020-11-22] MEDS ORDERED: NS IV 1000 ML 1,000 ML IV SCH (12:45)
[2020-11-22 12:56] LABS: LYMPHOCYTES % (AUTO) 5 % (12-44)
[2020-11-22 12:58] LABS: BASOPHILS % (AUTO) 0 % (0-10); EOSINOPHILS # (AUTO) 0.1 10^3/uL (0.0-0.3); EOSINOPHILS % (AUTO) 1 % (0-10); HEMATOCRIT 37 % (40-54); HEMOGLOBIN 10.9 g/dL (13.3-17.7); LYMPHOCYTES # (AUTO) 0.5 10^3/uL (1.0-4.0); MEAN CORPUSCULAR HEMOGLOBIN 24 pg (25-34); MEAN CORPUSCULAR HGB CONC 30 g/dL (32-36); MEAN CORPUSCULAR VOLUME 80 fL (80-99); MEAN PLATELET VOLUME 9.9 fL (9.0-12.2); MONOCYTES # (AUTO) 0.5 10^3/uL (0.0-1.0); MONOCYTES % (AUTO) 5 % (0-12); NEUTROPHILS # (AUTO) 7.8 10^3/uL (1.8-7.8); NEUTROPHILS % (AUTO) 88 % (42-75); WHITE BLOOD COUNT 8.9 10^3/uL (4.3-11.0)
[2020-11-22 13:22] LABS: ALBUMIN 3.5 GM/DL (3.2-4.5)
[2020-11-22 13:23] LABS: CHLORIDE 93 MMOL/L (98-107); POTASSIUM 4.3 MMOL/L (3.6-5.0); SODIUM 133 MMOL/L (135-145)
[2020-11-22 13:24] LABS: CALCIUM 10.1 MG/DL (8.5-10.1)
[2020-11-22 13:25] LABS: GLUCOSE 132 MG/DL (70-105); TOTAL PROTEIN 8.5 GM/DL (6.4-8.2)
[2020-11-22 13:26] LABS: CARBON DIOXIDE 22 MMOL/L (21-32)
[2020-11-22 13:27] LABS: BILIRUBIN,TOTAL 0.4 MG/DL (0.1-1.0)
[2020-11-22 13:28] LABS: ALKALINE PHOSPHATASE 139 U/L (40-136)
[2020-11-22 13:29] LABS: CREATININE SERUM 0.93 MG/DL (0.60-1.30); GFR ESTIMATED > 60
[2020-11-22 13:30] LABS: BUN/CREATININE RATIO 40
[2020-11-22 13:32] LABS: ALANINE AMINOTRANSFERASE 26 U/L (0-55); LIPASE 113 U/L (8-78)
[2020-11-22 13:45] LABS: EOSINOPHILS % (MANUAL) 1 %; LYMPHOCYTES % (MANUAL) 6 %; MICROCYTOSIS SLIGHT; MONOCYTES % (MANUAL) 7 %; NEUTROPHILS % (MANUAL) 86 %; PLATELET COUNT 276 10^3/uL (130-400)
[2020-11-22] MEDS ORDERED: morphine INJ 10 MG/ML 1ML (SYR OR VIAL) IVP STA (13:54)
[2020-11-22] MEDS ORDERED: IOHEXOL 350 MG/ML 100 ML (OMNIPAQUE 350) VIAL IV ONE (14:00)
[2020-11-22] MEDS ORDERED: HOLD METFORMIN - RECEIVED CONTRAST 20 ML VIAL IV SCH (14:00)
[2020-11-22] MEDS ORDERED: NS 100 ML (IVPB) BAG IV ONE (14:00)
--- NOTE | 2020-11-22 14:01 | ED Abdominal Pain ---
General Chief Complaint: Abdominal/GI Problems Stated Complaint: VOMITING Nursing Triage Note: PT TO RM 7 BY WHEELCHAIR WITH COMPLAINT OF ABD PAIN, N/V. STATES HAS NOT HAD A BM IN FIVE DAYS. Sepsis Screen: No Definite Risk Source of Information: Patient, Old Records Exam Limitations: No Limitations History of Present Illness Date Seen by Provider: November 22, 2020 Time Seen by Provider: 12:35 Initial Comments This 64-year-old gentleman with colon cancer presents to the emergency room with vomiting throughout the morning abdominal pain. His abdomen is distended and firm. He has not had a bowel movement in 4 or 5 days and is not passing any gas. He has a ventral incision with a history of a dehiscence. He is currently receiving wound care by home health. 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 He is afebrile. He reports he cannot keep any of his pills or fluids down today. Dr. Calvert is his oncologist. He had a port placed in the right chest yesterday and anticipates starting chemotherapy soon. Allergies and Home Medications Allergies Coded Allergies: Penicillins (Verified Allergy, Mild, Has received cephalosporins w/o issue, 11/21/20) Home Medications Albuterol Sulfate 1 Puff Puff, 2 PUFF IH Q4H PRN for SHORTNESS OF BREATH, (Reported) Last Action: Reviewed Amlodipine Besylate 5 Mg Tablet, 5 MG PO DAILY, (Reported) Last Action: Reviewed Aspirin 81 Mg Tablet.dr, 81 MG PO DAILY, (Reported) Last Action: Reviewed Atorvastatin Calcium 10 Mg Tablet, 10 MG PO HS, (Reported) Last Action: Reviewed Bisacodyl 10 Mg Supp.rect, 10 MG RC DAILY PRN for CONSTIPATION-4TH LINE, (Reported) Last Action: Reviewed Cetirizine HCl 10 Mg Tablet, 10 MG PO DAILY, (Reported) Last Action: Reviewed Cholecalciferol (Vitamin D3) 125 Mcg Tablet, 125 MCG PO DAILY, (Reported) Last Action: Reviewed Cyanocobalamin (Vitamin B-12) 1,000 Mcg Capsule, 1,000 MCG PO DAILY, (Reported) Last Action: Reviewed Hydrocodone/Acetaminophen 1 Each Tablet, 1 EACH PO Q6H PRN for PAIN-MODERATE (5- 7), (Reported) Last Action: Reviewed Levothyroxine Sodium 25 Mcg Tablet, 25 MCG PO DAILY, (Reported) Last Action: Reviewed Losartan Potassium 100 Mg Tablet, 100 MG PO DAILY, (Reported) Last Action: Reviewed Metoprolol Tartrate 100 Mg Tablet, 100 MG PO BID, (Reported) Last Action: Reviewed Morphine Sulfate 15 Mg Tablet.er, 15 MG PO BID, (Reported) Last Action: Reviewed Ondansetron HCl 8 Mg Tablet, 8 MG PO Q8H PRN for NAUSEA/VOMITING-1ST LINE, (Reported) Last Action: Reviewed Potassium Chloride 10 Meq Tablet.er, 20 MEQ PO BID, (Reported) TAKES 2 (10MEQ) TABS Last Action: Reviewed Sertraline HCl 50 Mg Tablet, 50 MG PO HS, (Reported) Last Action: Reviewed Umeclidinium Brm/Vilanterol Tr 1 Each Blst.w.dev, 1 EACH IH DAILY, (Reported) Last Action: Reviewed Patient Home Medication List Home Medication List Reviewed: Yes Review of Systems Review of Systems Constitutional: no symptoms reported EENTM: No Symptoms Reported Respiratory: No Symptoms Reported Cardiovascular: No Symptoms Reported Gastrointestinal: See HPI Genitourinary: No Symptoms Reported Musculoskeletal: no symptoms reported Skin: no symptoms reported Psychiatric/Neurological: No Symptoms Reported Endocrine: No Symptoms Reported Hematologic/Lymphatic: See HPI Past Nopvuje-Ycslub-Jyxrra Hx Past Med/Social Hx: Reviewed Nursing Past Med/Soc Hx Patient Social History Alcohol Use: Denies Use Smoking Status: Former Smoker Type Used: Cigarettes Former Smoker, Quit: Jul 11, 2008 Recent Infectious Disease Expo: No Recent Hopitalizations: Yes Immunizations Up To Date Date of Pneumonia Vaccine: May 10, 2016 Date of Influenza Vaccine: Apr 24, 2020 Seasonal Allergies Seasonal Allergies: Yes Past Medical History Surgeries: Yes (shouolder bilat, hiatal hernia x3.lower herniax2,torn meniscus left) Abdominal, Bowel Surgery (Hemicolectomy, small bowel resection), CABG, Coronary Stent, Joint Replacement, Orthopedic Respiratory: Yes (COVID-19 04/2020-HOSPITALIZED X 14 DAYS) Pneumonia, Sleep Apnea, COPD, Emphysema Currently Using CPAP: Yes Cardiac: Yes (CABG AND STENT X 1) Coronary Artery Disease, Heart Attack, High Cholesterol, Hypertension Neurological: Yes TIA Reproductive Disorders: No Sexually Transmitted Disease: No HIV/AIDS: No Genitourinary: No Gastrointestinal: Yes (ADENOCARCINOMA OF COLON DX 08/2020) Abdominal Hernia, Gastroesophageal Reflux, Diverticulosis, Polyps, Hiatal Hernia Musculoskeletal: Yes (ARTHRITIS IN HANDS, MULTIPLE ORTHO SURGERIES) Arthritis Endocrine: Yes Hypothyroidsim, Diabetes, Non-Insulin dep HEENT: Yes Loss of Vision: Bilateral Hearing Impairment: Hard of Hearing, Bilateral Hearing Aide Cancer: Yes Colon Did You Recieve Any Treatments: Yes What Type of Treatment Did You: Surgical Intervention Psychosocial: No Integumentary: No Blood Disorders: No Adverse Reaction/Blood Tranf: No (N/A) Family Medical History Diabetes, Seizures SOCIAL HISTORY: -SMOKED 1 PPD, QUIT 2019 -ETOH--DENIES USE -DRUGS--DENIES USE PAST SURGICAL HISTORY: -RIGHT HEMICOLECTOMY 09/20/20 FOR MASS/ADENOCARCINOMA -HIATAL HERNIA REPAIR X 3 -BILATERAL INGUINAL HERNIA REPAIR X 2 -LEFT KNEE MENISCUS TEAR REPAIR -MULTIPLE CARDIAC CATHS--STENT X 1 TO LAD; LAST CARDIAC CATH 2016--PATENT STENT TO LAD, OCCLUDED ZELAYA, PATENT VEIN GRAFTS. SMALL VESSEL DISEASE. NO INTERVENTION -4 VESSEL CABG -BILATERAL SHOULDER REPLACEMENTS -COLONOSCOPIES WITH POLYPECTOMY-LAST ONE 03/2018 - Physical Exam Vital Signs Vital Signs - First Documented 11/22/20 12:34 Pulse 99 Resp 17 B/P (MAP) 152/76 (101) Pulse Ox 94 O2 Delivery Room Air Capillary Refill : Less Than 3 Seconds Height/Weight/BMI Height: 5'8.00" Weight: 238lbs. 5.0oz. 107.028428gg; 27.00 BMI Method:Stated General Appearance: WD/WN, mild distress HEENT: PERRL/EOMI, normal ENT inspection Neck: normal inspection Respiratory: lungs clear, normal breath sounds, no respiratory distress Cardiovascular: regular rate, rhythm, no edema, no murmur Gastrointestinal: No soft; abnormal bowel sounds (Tympanic), distended, tenderness Extremities: normal inspection, no pedal edema Neurologic/Psychiatric: table runner II-XII nml as tested, no motor/sensory deficits, alert, normal mood/affect, oriented x 3 Skin: normal color, warm/dry Focused Exam Lactate Level 11/22/20 15:56: Lactic Acid Level 0.98 Lactic Acid Level Laboratory Tests Test 11/22/20 15:56 Lactic Acid Level 0.98 MMOL/L (0.50-2.00) Progress/Results/Core Measures Results/Orders Lab Results Laboratory Tests Test 11/22/20 12:48 11/22/20 15:00 11/22/20 15:56 Range/Units White Blood Count 8.9 4.3-11.0 10^3/uL Red Blood Count 4.59 4.30-5.52 10^6/uL Hemoglobin 10.9 L 13.3-17.7 g/dL Hematocrit 37 L 40-54 % Mean Corpuscular Volume 80 80-99 fL Mean Corpuscular Hemoglobin 24 L 25-34 pg Mean Corpuscular Hemoglobin Concent 30 L 32-36 g/dL Red Cell Distribution Width 17.3 H 10.0-14.5 % Platelet Count 276 130-400 10^3/uL Mean Platelet Volume 9.9 9.0-12.2 fL Immature Granulocyte % (Auto) 1 % Neutrophils (%) (Auto) 88 H 42-75 % Lymphocytes (%) (Auto) 5 L 12-44 % Monocytes (%) (Auto) 5 0-12 % Eosinophils (%) (Auto) 1 0-10 % Basophils (%) (Auto) 0 0-10 % Neutrophils # (Auto) 7.8 1.8-7.8 10^3/uL Lymphocytes # (Auto) 0.5 L 1.0-4.0 10^3/uL Monocytes # (Auto) 0.5 0.0-1.0 10^3/uL Eosinophils # (Auto) 0.1 0.0-0.3 10^3/uL Basophils # (Auto) 0.0 0.0-0.1 10^3/uL Immature Granulocyte # (Auto) 0.1 0.0-0.1 10^3/uL Neutrophils % (Manual) 86 % Lymphocytes % (Manual) 6 % Monocytes % (Manual) 7 % Eosinophils % (Manual) 1 % Microcytosis SLIGHT Prothrombin Time 15.2 H 12.2-14.7 SEC INR Comment 1.2 0.8-1.4 Activated Partial Thromboplast Time 23 L 24-35 SEC Sodium Level 133 L 135-145 MMOL/L Potassium Level 4.3 3.6-5.0 MMOL/L Chloride Level 93 L 98-107 MMOL/L Carbon Dioxide Level 22 21-32 MMOL/L Anion Gap 18 H 5-14 MMOL/L Blood Urea Nitrogen 37 H 7-18 MG/DL Creatinine 0.93 0.60-1.30 MG/DL Estimat Glomerular Filtration Rate > 60 BUN/Creatinine Ratio 40 Glucose Level 132 H 70-105 MG/DL Calcium Level 10.1 8.5-10.1 MG/DL Corrected Calcium 10.5 H 8.5-10.1 MG/DL Total Bilirubin 0.4 0.1-1.0 MG/DL Aspartate Amino Transf (AST/SGOT) 29 5-34 U/L Alanine Aminotransferase (ALT/SGPT) 26 0-55 U/L Alkaline Phosphatase 139 H 40-136 U/L C-Reactive Protein High Sensitivity 16.39 H 0.00-0.50 MG/DL Total Protein 8.5 H 6.4-8.2 GM/DL Albumin 3.5 3.2-4.5 GM/DL Lipase 113 H 8-78 U/L Urine Color YELLOW Urine Clarity CLEAR Urine pH 6.0 5-9 Urine Specific [place] 1.010 L 1.016-1.022 Urine Protein TRACE H NEGATIVE Urine Glucose (UA) NEGATIVE NEGATIVE Urine Ketones TRACE H NEGATIVE Urine Nitrite NEGATIVE NEGATIVE Urine Bilirubin NEGATIVE NEGATIVE Urine Urobilinogen 0.2 < = 1.0 MG/DL Urine Leukocyte Esterase NEGATIVE NEGATIVE Urine RBC (Auto) NEGATIVE NEGATIVE Urine RBC NONE /HPF Urine WBC RARE /HPF Urine Squamous Epithelial Cells RARE /HPF Urine Crystals NONE /LPF Urine Bacteria TRACE /HPF Urine Casts NONE /LPF Urine Mucus SMALL H /LPF Urine Culture Indicated NO Coronavirus 2019 ([facility]) Negative Not Detecte Lactic Acid Level 0.98 0.50-2.00 MMOL/L Micro Results Microbiology 11/22/20 Blood Culture - Preliminary, Resulted Staph, 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) See Comments 11/22/20 Blood Culture - Preliminary, Resulted No growth My Orders Orders - RAJESH VILLA MD Ondansetron Injection (Zofran Injectio (11/22/20 12:45) Fentanyl Inj (Sublimaze Injection) (11/22/20 12:45) Cbc With Automated Diff (11/22/20 12:41) Comprehensive Metabolic Panel (11/22/20 12:41) Hs C Reactive Protein (11/22/20 12:41) Lipase (11/22/20 12:41) Ua Culture If Indicated (11/22/20 12:41) Ed Iv/Invasive Line Start (11/22/20 12:41) Ns Iv 1000 Ml (Sodium Chloride 0.9%) (11/22/20 12:45) Manual Differential (11/22/20 12:48) Ct Abdomen/Pelvis W (11/22/20 13:48) Iohexol Injection (Omnipaque 350 Mg/Ml 1 (11/22/20 14:00) Received Contrast (Hold Metformin- Contr (11/22/20 14:00) Ns (Ivpb) (Sodium Chloride 0.9% Ivpb Bag (11/22/20 14:00) Morphine Injection (Morphine Injection (11/22/20 13:54) Blood Culture (11/22/20 14:43) Sputum Culture (11/22/20 14:43) Protime With Inr (11/22/20 14:43) Partial Thromboplastin Time (11/22/20 14:43) Chest 1 View, Ap/Pa Only (11/22/20 14:43) Vital Signs Adult Sepsis Patie Q15M (11/22/20 14:43) O2 (11/22/20 14:43) Remove Rings In Anticipation O (11/22/20 14:43) Lactic Acid Analyzer (11/22/20 14:43) Meropenem (Merrem 1000 Mg) (11/22/20 14:45) Covid 19 Inhouse Test (11/22/20 14:46) Ng Tube Insert & Assessment (11/22/20 15:16) Benzocaine Extension Tube (Hurricaine Ex (11/22/20 15:54) Medications Given in ED Vital Signs/I&O 11/22/20 12:34 Pulse 99 Resp 17 B/P (MAP) 152/76 (101) Pulse Ox 94 O2 Delivery Room Air Blood Pressure Mean: 101 Progress Progress Note #1: Time: 14:03 Progress Note Patient was seen and examined. Symptoms have been treated with Zofran and fentanyl. Pain was not controlled with fentanyl, and morphine was added. Labs have been reviewed and CT of the abdomen and pelvis is pending. Progress Note #2: Progress Note CT scan revealed small bowel obstruction. There was gastric distention prompting NG tube placement. Patient did feel some relief after NG was placed. There was a small pneumoperitoneum on the CT scan with elevated CRP. This pr ompted treating with meropenem. Diagnostic Imaging Diagonstic Imaging: CT Plain Films/CT/US/NM/MRI: abdomen, pelvis Comments CT viewed by me and report reviewed. Discussed with Dr. Skaggs. NAME: MARIA D [facility]OWER [facility] REC#: [id number] PT STATUS: REG ER : 1955 PHYSICIAN: RAJESH VILLA MD ADMIT DATE: 11/22/20/ER Signed Date of Exam:11/22/20 CT ABDOMEN/PELVIS W PROCEDURE: CT abdomen and pelvis with contrast. TECHNIQUE: Multiple contiguous axial images were obtained through the abdomen and pelvis after administration of intravenous contrast. Auto Exposure Controls were utilized during the CT exam to meet ALARA standards for radiation dose reduction. All CT scans use one or more of the following dose optimizing techniques: automated exposure control, MA and/or KvP adjustment based on patient size and exam type or iterative reconstruction. Indication: Generalized abdominal pain with nausea and vomiting. No bowel movement for 5 days. History of colon cancer. Comparison: 09/28/2020. Discussion: Small right pleural effusion is new. Patchy infiltrates within the lung bases could be seen with atelectasis or pneumonia, new. There are new subcapsular fluid collections along the liver. The largest on the right measures 4 cm x 12.6 images by 8 cm. There is some enhancing rim present. No internal gas. Findings are indeterminate could be seen with a subcapsular hematoma, infection, or other nonspecific fluid collection. Again this is new from the prior exam. The stomach is markedly distended with gas and fluid. The gallbladder is unremarkable. Small pneumoperitoneum is noted, with exact source indeterminate. This could be due to recent surgery though bowel perforation is not excluded. There are multiple dilated small bowel loops noted diffusely throughout the abdomen consistent with small bowel obstruction. There appears to be a transition point within the right abdomen, near the suture line. The remaining colon is most decompressed and contains a small amount of gas and stool. No adenopathy. Bladder and prostate are unremarkable. No acute osseous abnormality identified. No renal mass, stone, hydronephrosis. The aorta is normal in caliber. Previous incisional hernia has resolved. Impression: 1. New high-grade small bowel obstruction with transition point likely within the right abdomen near a suture line. 2. Pneumoperitoneum. 3. New subcapsular fluid along the liver, indeterminate. See above discussion. 3. New right pleural effusion. Patchy opacities within the lung bases could be seen with atelectasis or pneumonia. Dictated by: Dictated on workstation # [id number] Dict: 11/22/20 1413 Trans: 11/22/20 1633 [id number] Interpreted by: AJAY LIN MD Electronically signed by: AJAY LIN MD 11/22/20 1633 Reviewed: Reviewed by Me Departure Communication (Admissions) Time/Spoke to Admitting Phy: 16:08 Dr. Toby Mann Time/Spoke to Consulting Phy: 14:48 Dr. Skaggs Impression Primary Impression: Small bowel obstruction Additional Impressions: Colon cancer metastasized to liver Pulmonary infiltrate Disposition: ADMITTED INPATIENT Condition: Improved Admissions Decision to Admit Reason: Admit from ER (General) Decision to Admit/Date: November 22, 2020 Time/Decision to Admit Time: 14:45 Departure-Patient Inst. Referrals: YENI RUVALCABA DO (PCP/Family) Primary Care Physician RAJESH VILLA MD November 22, 2020 14:01
--- NOTE | 2020-11-22 14:22 | Diagnostic Imaging Report ---
PROCEDURE: CT abdomen and pelvis with contrast. TECHNIQUE: Multiple contiguous axial images were obtained through the abdomen and pelvis after administration of intravenous contrast. Auto Exposure Controls were utilized during the CT exam to meet ALARA standards for radiation dose reduction. All CT scans use one or more of the following dose optimizing techniques: automated exposure control, MA and/or KvP adjustment based on patient size and exam type or iterative reconstruction. Indication: Generalized abdominal pain with nausea and vomiting. No bowel movement for 5 days. History of colon cancer. Comparison: 09/28/2020. Discussion: Small right pleural effusion is new. Patchy infiltrates within the lung bases could be seen with atelectasis or pneumonia, new. There are new subcapsular fluid collections along the liver. The largest on the right measures 4 cm x 12.6 images by 8 cm. There is some enhancing rim present. No internal gas. Findings are indeterminate could be seen with a subcapsular hematoma, infection, or other nonspecific fluid collection. Again this is new from the prior exam. The stomach is markedly distended with gas and fluid. The gallbladder is unremarkable. Small pneumoperitoneum is noted, with exact source indeterminate. This could be due to recent surgery though bowel perforation is not excluded. There are multiple dilated small bowel loops noted diffusely throughout the abdomen consistent with small bowel obstruction. There appears to be a transition point within the right abdomen, near the suture line. The remaining colon is most decompressed and contains a small amount of gas and stool. No adenopathy. Bladder and prostate are unremarkable. No acute osseous abnormality identified. No renal mass, stone, hydronephrosis. The aorta is normal in caliber. Previous incisional hernia has resolved. Impression: 1. New high-grade small bowel obstruction with transition point likely within the right abdomen near a suture line. 2. Pneumoperitoneum. 3. New subcapsular fluid along the liver, indeterminate. See above discussion. 3. New right pleural effusion. Patchy opacities within the lung bases could be seen with atelectasis or pneumonia. Dictated by: Dictated on workstation # [id number]
[2020-11-22] MEDS ORDERED: MEROPENEM 1,000 MG in WATER (STERILE) FOR INJECTION 20 ML IV ONE (14:45)
[2020-11-22 14:57] LABS: INR 1.2 (0.8-1.4); PROTHROMBIN TIME PATIENT 15.2 SEC (12.2-14.7)
--- NOTE | 2020-11-22 15:02 | Diagnostic Imaging Report ---
Indication: Dyspnea, sepsis. Comparison: 10/03/2020. Discussion: Single portable upright view of the chest was obtained. Mildly elevated right hemidiaphragm. Median sternotomy is present. Bilateral shoulder arthroplasties are noted. Normal heart size. Right-sided port is present. Patchy infiltrates are noted within the left lung base, atelectasis or pneumonia. No pleural fluid or pneumothorax. Impression: 1. Patchy infiltrates within the left lung base, atelectasis or pneumonia. Overall this is decreased from the prior exam. Dictated by: Dictated on workstation # [id number]
[2020-11-22 15:07] LABS: BILIRUBIN,URINE NEGATIVE (NEGATIVE); CLARITY,URINE CLEAR; COLOR,URINE YELLOW; GLUCOSE, URINE (UA) NEGATIVE (NEGATIVE); KETONES,URINE TRACE (NEGATIVE); LEUKOCYTE ESTERASE ,URINE NEGATIVE (NEGATIVE); NITRITE,URINE NEGATIVE (NEGATIVE); PROTEIN,URINE TRACE (NEGATIVE)
[2020-11-22 15:13] LABS: BACTERIA,URINE TRACE /HPF; SQUAMOUS EPITHELIAL CELL,UR RARE /HPF; WBC,URINE RARE /HPF
[2020-11-22] MEDS ORDERED: HURRICAINE EXT TUBE (BENZOCAINE) ONE (15:54)
--- NOTE | 2020-11-22 16:36 | History & Physical-Surgical ---
History of Present Illness History of Present Illness Reason for visit/HPI Chief complaint nausea vomiting abdominal distention patient is a 64-year-old male who presented to the emergency department with nausea vomiting abdominal pain. Patient abdomen has become more distended over the last 24 hours and not passing any flatus. His last bowel movement was approximately 4 to 5 days ago. Patient had right colon resection and found to have metastatic disease with significant liver burden. Patient had a dehiscence he states and then had to have wound VAC placed which is almost completely healed. Patient underwent port placement yesterday. He just continues to feel worse and so he presented to the emergency department for further evaluation. Patient had a CT scan demonstrating findings consistent with small bowel obstruction, subcapsular hematoma of the liver and a very tiny amount of pneumoperitoneum without any visualized source. Patient denies any fever sweats chills or chest pain. Patient is having slight shortness of breath due to abdominal distention Date of Admission Date Seen by a Provider: November 22, 2020 Time Seen by a Provider: 16:27 I consulted on this patient on 11/22/20 16:27 Attending Physician Admitting Physician Petra Ayala DO Consult Allergies and Home Medications Allergies Coded Allergies: Penicillins (Verified Allergy, Mild, Has received cephalosporins w/o issue, 11/21/20) Home Medications Albuterol Sulfate 1 Puff Puff, 2 PUFF IH Q4H PRN for SHORTNESS OF BREATH, (Reported) Amlodipine Besylate 5 Mg Tablet, 5 MG PO DAILY, (Reported) Aspirin 81 Mg Tablet.dr, 81 MG PO DAILY, (Reported) Atorvastatin Calcium 10 Mg Tablet, 10 MG PO HS, (Reported) Cetirizine HCl 10 Mg Tablet, 10 MG PO DAILY, (Reported) Cholecalciferol (Vitamin D3) 125 Mcg Tablet, 125 MCG PO DAILY, (Reported) Cyanocobalamin (Vitamin B-12) 1,000 Mcg Capsule, 1,000 MCG PO DAILY, (Reported) Hydrocodone/Acetaminophen 1 Each Tablet, 1 EACH PO Q6H PRN for PAIN- BREAKTHROUGH, (Reported) Levothyroxine Sodium 25 Mcg Tablet, 25 MCG PO DAILY, (Reported) Losartan Potassium 100 Mg Tablet, 100 MG PO DAILY, (Reported) Metoprolol Tartrate 100 Mg Tablet, 100 MG PO BID, (Reported) Morphine Sulfate 15 Mg Tablet.er, 15 MG PO BID, (Reported) Ondansetron 4 Mg Tab.rapdis, 4 MG PO Q4H PRN for NAUSEA/VOMITING-1ST LINE, (Reported) Pantoprazole Sodium 40 Mg Tablet.dr, 40 MG PO HS, (Reported) Potassium Chloride 10 Meq Tab.er.prt, 20 MEQ PO BID, (Reported) Sertraline HCl 50 Mg Tablet, 50 MG PO HS, (Reported) Umeclidinium Brm/Vilanterol Tr 1 Each Blst.w.dev, 1 EACH IH DAILY, (Reported) Patient Home Medication List Home Medication List Reviewed: Yes Past Vexkugd-Dvmsyg-Sectfu Hx Patient Social History Smoking Status: Former Smoker Former Smoker, Quit: Jul 11, 2008 Type Used: Cigarettes Recent Hopitalizations: Yes Immunizations Up To Date Date of Pneumonia Vaccine: May 10, 2016 Date of Influenza Vaccine: Apr 24, 2020 Seasonal Allergies Seasonal Allergies: Yes Surgeries History of Surgeries: Yes (shouolder bilat, hiatal hernia x3.lower herniax2,torn meniscus left) Surgeries: Abdominal, Bowel Surgery (Hemicolectomy, small bowel resection), CABG, Coronary Stent, Joint Replacement, Orthopedic Respiratory History of Respiratory Disorde: Yes (COVID-19 04/2020-HOSPITALIZED X 14 DAYS) Respiratory Disorders: Pneumonia, Sleep Apnea, COPD, Emphysema Cardiovascular History of Cardiac Disorders: Yes (CABG AND STENT X 1) Cardiac Disorders: Coronary Artery Disease, Heart Attack, High Cholesterol, Hypertension Neurological History of Neurological Disord: Yes Neurological Disorders: TIA Reproductive System Hx Reproductive Disorders: No Sexually Transmitted Disease: No HIV/AIDS: No Genitourinary History of Genitourinary Disor: No Gastrointestinal History of Gastrointestinal Di: Yes (ADENOCARCINOMA OF COLON DX 08/2020) Gastrointestinal Disorders: Abdominal Hernia, Gastroesophageal Reflux, Diverticulosis, Polyps, Hiatal Hernia Musculoskeletal History of Musculoskeletal Dis: Yes (ARTHRITIS IN HANDS, MULTIPLE ORTHO SURGERIES) Musculoskeletal Disorders: Arthritis Endocrine History of Endocrine Disorders: Yes Endocrine Disorders: Hypothyroidsim, Diabetes, Non-Insulin dep HEENT History of HEENT Disorders: Yes Loss of Vision: Bilateral Hearing Impairment: Hard of Hearing, Bilateral Hearing Aide Cancer History of Cancer: Yes Cancer: Colon Psychosocial History of Psychiatric Problem: No Integumentary History of Skin or Integumenta: No Blood Transfusions History of Blood Disorders: No Adverse Reaction to a Blood Tr: No (N/A) Reviewed Nursing Assessment Reviewed/Agree w Nursing PMH: Yes Family Medical History Significant Family History: Diabetes, Seizures Review of Systems Constitutional: No chills, No diaphoresis EENTM: No blurred vision, No double vision Respiratory: No cough; short of breath Cardiovascular: No chest pain, No palpitations Gastrointestinal: abdominal pain, nausea, vomiting, other (distention) Genitourinary: No decreased output, No discharge Musculoskeletal: No back pain, No joint pain Skin: No change in color, No rash Psychiatric/Neurological: Denies Anxiety, Denies Depressed, Denies Emotional Problems All Other Systems Reviewed Negative Unless Noted: Yes (Negative excepted noted.) Physical Exam Vital Signs Vital Signs - First Documented 11/22/20 12:34 Pulse 99 Resp 17 B/P (MAP) 152/76 (101) Pulse Ox 94 O2 Delivery Room Air Capillary Refill : Less Than 3 Seconds Height, Weight, BMI Height: 5'8.00" Weight: 238lbs. 5.0oz. [id number]; 27.00 BMI Method:Stated General Appearance: Chronically ill, Mild Distress HEENT: PERRL/EOMI, Normal ENT Inspection Neck: Normal Inspection, Non Tender Respiratory: Chest Non Tender, No Accessory Muscle Use, No Respiratory Distress Cardiovascular: Regular Rate, Rhythm, No JVD Gastrointestinal: Distended, Tenderness (diffuse mildly, not peritoneal), Other (midline incision/wound almost completely healed, small scab lower portion) Rectal: Deferred Back: No CVA Tenderness, No Vertebral Tenderness Neurologic/Psychiatric: Alert, Oriented x3, No Motor/Sensory Deficits, Normal Mood/Affect, biomed tech II-XII Norm as Tested Skin: Normal Color, Warm/Dry Lymphatic: No Adenopathy Data Review Labs Laboratory Tests 11/22/20 12:48: White Blood Count 8.9, Red Blood Count 4.59, Hemoglobin 10.9L, Hematocrit 37L, Mean Corpuscular Volume 80, Mean Corpuscular Hemoglobin 24L, Mean Corpuscular Hemoglobin Concent 30L, Red Cell Distribution Width 17.3H, Platelet Count 276, Mean Platelet Volume 9.9, Immature Granulocyte % (Auto) 1, Neutrophils (%) (Auto) 88H, Lymphocytes (%) (Auto) 5L, Monocytes (%) (Auto) 5, Eosinophils (%) (Auto) 1, Basophils (%) (Auto) 0, Neutrophils # (Auto) 7.8, Lymphocytes # (Auto) 0.5L, Monocytes # (Auto) 0.5, Eosinophils # (Auto) 0.1, Basophils # (Auto) 0.0, Immature Granulocyte # (Auto) 0.1, Neutrophils % (Manual) 86, Lymphocytes % (Manual) 6, Monocytes % (Manual) 7, Eosinophils % (Manual) 1, Microcytosis SLIGHT, Prothrombin Time 15.2H, INR Comment 1.2, Activated Partial Thromboplast Time 23L, Sodium Level 133L, Potassium Level 4.3, Chloride Level 93L, Carbon Dioxide Level 22, Anion Gap 18H, Blood Urea Nitrogen 37H, Creatinine 0.93, Estimat Glomerular Filtration Rate > 60, BUN/Creatinine Ratio 40, Glucose Level 132H, Calcium Level 10.1, Corrected Calcium 10.5H, Total Bilirubin 0.4, Aspartate Amino Transf (AST/SGOT) 29, Alanine Aminotransferase (ALT/SGPT) 26, Alkaline Phosphatase 139H, C-Reactive Protein High Sensitivity 16.39H, Total Protein 8.5H, Albumin 3.5, Lipase 113H 11/22/20 15:00: Urine Color YELLOW, Urine Clarity CLEAR, Urine pH 6.0, Urine Specific [place] 1.010L, Urine Protein TRACEH, Urine Glucose (UA) NEGATIVE, Urine Ketones TRACEH, Urine Nitrite NEGATIVE, Urine Bilirubin NEGATIVE, Urine Urobilinogen 0.2, Urine Leukocyte Esterase NEGATIVE, Urine RBC (Auto) NEGATIVE, Urine RBC NONE, Urine WBC RARE, Urine Squamous Epithelial Cells RARE, Urine Crystals NONE, Urine Bacteria TRACE, Urine Casts NONE, Urine Mucus SMALLH, Urine Culture Indicated NO, Coronavirus 2019 ([place]) Negative 11/22/20 15:56: Assessment/Plan Assessment/Plan Admission Diagonsis metastatic colon cancer small bowel obstruction pneumoperitoneum subcapsular hematoma of liver Diffuse abdominal pain Nausea vomiting Patient with no source of identified of pneumoperitoneum. He is not peritoneal on exam. He does have small bowel obstruction high-grade this is near anastomosis. Will place NG tube and try conservative measures at this time. Patient would prefer to try to keep with conservative measures as well. Patient understands that surgical intervention still may need to be performed. Patient will be admitted. Keep n.p.o. Consult medicine Admission Status: Inpatient Order (span 2 midnights) Reason for Inpatient Admission: Patient needs continual monitoring and treatment and may need surgical intervention which will require stay of longer than 2 midnights. Assessment/Plan metastatic colon cancer small bowel obstruction pneumoperitoneum subcapsular hematoma of liver Diffuse abdominal pain Nausea vomiting Patient with no source of identified of pneumoperitoneum. He is not peritoneal on exam. He does have small bowel obstruction high-grade this is near anastomosis. Will place NG tube and try conservative measures at this time. Patient would prefer to try to keep with conservative measures as well. Patient understands that surgical intervention still may need to be performed. Patient will be admitted. Keep n.p.o. Consult medicine ALISHA HANSEN DO November 22, 2020 16:35
[2020-11-22 17:45] VITALS: BP 159/77
[2020-11-22 19:47] VITALS: BP 147/67
[2020-11-22] MEDS: MEROPENEM 500 MG/SWFI 10 ML IV PUSH IV SCH ×2 (21:17)
[2020-11-22] MEDS: morphine INJ 4 MG/ML 1 ML (VIAL/SYRINGE) IV PRN (21:18)
[2020-11-22] MEDS: FAMOTIDINE 20MG/2ML IV (PEPCID) IVP SCH (21:18)
[2020-11-22] MEDS: LACTATED RINGERS 1,000 ML IV SCH (21:18)
[2020-11-23 00:12] VITALS: BP 127/75
[2020-11-23] MEDS: LACTATED RINGERS 1,000 ML IV SCH ×3 (04:08→15:32)
[2020-11-23] MEDS: MEROPENEM 500 MG/SWFI 10 ML IV PUSH IV SCH ×8 (04:08→20:56)
[2020-11-23 04:57] VITALS: BP 131/68
[2020-11-23 05:57] LABS: BASOPHILS % (AUTO) 0 % (0-10); EOSINOPHILS # (AUTO) 0.2 10^3/uL (0.0-0.3); EOSINOPHILS % (AUTO) 1 % (0-10); HEMATOCRIT 31 % (40-54); HEMOGLOBIN 9.2 g/dL (13.3-17.7); LYMPHOCYTES # (AUTO) 0.8 10^3/uL (1.0-4.0); LYMPHOCYTES % (AUTO) 7 % (12-44); MEAN CORPUSCULAR HEMOGLOBIN 24 pg (25-34); MEAN CORPUSCULAR HGB CONC 30 g/dL (32-36); MEAN CORPUSCULAR VOLUME 80 fL (80-99); MEAN PLATELET VOLUME 9.5 fL (9.0-12.2); MONOCYTES # (AUTO) 0.8 10^3/uL (0.0-1.0); MONOCYTES % (AUTO) 6 % (0-12); NEUTROPHILS # (AUTO) 10.2 10^3/uL (1.8-7.8); NEUTROPHILS % (AUTO) 85 % (42-75); PLATELET COUNT 284 10^3/uL (130-400)
[2020-11-23 06:23] LABS: ALANINE AMINOTRANSFERASE 22 U/L (0-55); ALBUMIN 2.8 GM/DL (3.2-4.5); ALKALINE PHOSPHATASE 114 U/L (40-136); BILIRUBIN,TOTAL 0.4 MG/DL (0.1-1.0); BUN/CREATININE RATIO 33; CARBON DIOXIDE 24 MMOL/L (21-32); CHLORIDE 98 MMOL/L (98-107); CREATININE SERUM 0.81 MG/DL (0.60-1.30); GFR ESTIMATED > 60; GLUCOSE 104 MG/DL (70-105); POTASSIUM 3.8 MMOL/L (3.6-5.0); SODIUM 133 MMOL/L (135-145); TOTAL PROTEIN 6.6 GM/DL (6.4-8.2)
[2020-11-23 08:19] VITALS: BP 147/73
[2020-11-23] MEDS: FAMOTIDINE 20MG/2ML IV (PEPCID) IVP SCH ×2 (08:56→20:55)
--- NOTE | 2020-11-23 09:16 | Consultation ---
History of Present Illness History of Present Illness Patient Consulted On(yokasta/time) 11/23/20 09:13 Date Seen by Provider: November 23, 2020 Time Seen by Provider: 10:31 Reason for Visit: small bowel obstruction History of Present Illness 64 yo M admitted for SBO that has likely been developing over time as he has adenocarcinoma s/p resection and history of wound dehiscence. He had a port place 11/21/20. He would like to avoid surgery as he is suppose to start chemotherapy in the near future. Patient has multiple other issues. He has COPD, CAD, hypothyroidism. I was consulted because I am covering for Dr. Ayala this weekend. Allergies and Home Medications Allergies Coded Allergies: Penicillins (Verified Allergy, Mild, Has received cephalosporins w/o issue, 11/21/20) Home Medications Albuterol Sulfate 1 Puff Puff, 2 PUFF IH Q4H PRN for SHORTNESS OF BREATH, (Reported) Amlodipine Besylate 5 Mg Tablet, 5 MG PO DAILY, (Reported) Aspirin 81 Mg Tablet.dr, 81 MG PO DAILY, (Reported) Atorvastatin Calcium 10 Mg Tablet, 10 MG PO HS, (Reported) Cetirizine HCl 10 Mg Tablet, 10 MG PO DAILY, (Reported) Cholecalciferol (Vitamin D3) 125 Mcg Tablet, 125 MCG PO DAILY, (Reported) Cyanocobalamin (Vitamin B-12) 1,000 Mcg Capsule, 1,000 MCG PO DAILY, (Reported) Hydrocodone/Acetaminophen 1 Each Tablet, 1 EACH PO Q6H PRN for PAIN-BREAKTHROUGH, (Reported) Levothyroxine Sodium 25 Mcg Tablet, 25 MCG PO DAILY, (Reported) Losartan Potassium 100 Mg Tablet, 100 MG PO DAILY, (Reported) Metoprolol Tartrate 100 Mg Tablet, 100 MG PO BID, (Reported) Morphine Sulfate 15 Mg Tablet.er, 15 MG PO BID, (Reported) Ondansetron 4 Mg Tab.rapdis, 4 MG PO Q4H PRN for NAUSEA/VOMITING-1ST LINE, (Reported) Pantoprazole Sodium 40 Mg Tablet.dr, 40 MG PO HS, (Reported) Potassium Chloride 10 Meq Tab.er.prt, 20 MEQ PO BID, (Reported) Sertraline HCl 50 Mg Tablet, 50 MG PO HS, (Reported) Umeclidinium Brm/Vilanterol Tr 1 Each Blst.w.dev, 1 EACH IH DAILY, (Reported) Patient Home Medication List Home Medication List Reviewed: Yes Past Nrjpqhk-Pqntas-Jipyiw Hx Past Med/Social Hx: Reviewed Nursing Past Med/Soc Hx Patient Social History Alcohol Use: Denies Use Smoking Status: Former Smoker Type Used: Cigarettes Former Smoker, Quit: Jul 11, 2008 Recent Infectious Disease Expo: No Recent Hopitalizations: Yes Have you traveled recently?: No Immunizations Up To Date Date of Pneumonia Vaccine: May 10, 2016 Date of Influenza Vaccine: Apr 24, 2020 Seasonal Allergies Seasonal Allergies: Yes Past Medical History Surgeries: Yes (shouolder bilat, hiatal hernia x3.lower herniax2,torn meniscus left) Abdominal, Bowel Surgery (Hemicolectomy, small bowel resection), CABG, Coronary Stent, Joint Replacement, Orthopedic Respiratory: Yes (COVID-19 04/2020-HOSPITALIZED X 14 DAYS) Pneumonia, Sleep Apnea, COPD, Emphysema Currently Using CPAP: Yes Cardiac: Yes (CABG AND STENT X 1) Coronary Artery Disease, Heart Attack, High Cholesterol, Hypertension Neurological: Yes TIA Reproductive Disorders: No Sexually Transmitted Disease: No HIV/AIDS: No Genitourinary: No Gastrointestinal: Yes (ADENOCARCINOMA OF COLON DX 08/2020) Abdominal Hernia, Gastroesophageal Reflux, Diverticulosis, Polyps, Hiatal Hernia Musculoskeletal: Yes (ARTHRITIS IN HANDS, MULTIPLE ORTHO SURGERIES) Arthritis Endocrine: Yes Hypothyroidsim, Diabetes, Non-Insulin dep HEENT: Yes Loss of Vision: Bilateral Hearing Impairment: Hard of Hearing, Bilateral Hearing Aide Cancer: Yes Colon Did You Recieve Any Treatments: Yes What Type of Treatment Did You: Surgical Intervention Psychosocial: No Integumentary: No Blood Disorders: No Adverse Reaction/Blood Tranf: No (N/A) Family Medical History Diabetes, Seizures SOCIAL HISTORY: -SMOKED 1 PPD, QUIT 2019 -ETOH--DENIES USE -DRUGS--DENIES USE PAST SURGICAL HISTORY: -RIGHT HEMICOLECTOMY 09/20/20 FOR MASS/ADENOCARCINOMA -HIATAL HERNIA REPAIR X 3 -BILATERAL INGUINAL HERNIA REPAIR X 2 -LEFT KNEE MENISCUS TEAR REPAIR -MULTIPLE CARDIAC CATHS--STENT X 1 TO LAD; LAST CARDIAC CATH 2016--PATENT STENT TO LAD, OCCLUDED ZELAYA, PATENT VEIN GRAFTS. SMALL VESSEL DISEASE. NO INTERVENTION -4 VESSEL CABG -BILATERAL SHOULDER REPLACEMENTS -COLONOSCOPIES WITH POLYPECTOMY-LAST ONE 03/2018 - Review of Systems Review of Systems General: No Chills, No Night Sweats HEENT: No Head Aches Pulmonary: No Dyspnea, No Cough Cardiovascular: Chest Pain Gastrointestinal: Nausea, Abdominal Pain; No: Vomiting Genitourinary: No Dysuria Neurological: Weakness All Other Systems Reviewed All Other Systems Reviewed: Yes (Negative excepted noted.) Physical Exam Vital Signs Vital Signs - First Documented 11/22/20 11/22/20 11/23/20 12:34 17:45 04:57 Temp 36.5 Pulse 99 Resp 17 B/P (MAP) 152/76 (101) Pulse Ox 94 O2 Delivery Room Air O2 Flow Rate 3.00 Capillary Refill : Less Than 3 Seconds Height, Weight, BMI Height: 5'8.00" Weight: 238lbs. 5.0oz. 107.485906qo; 27.66 BMI Method:Stated General Appearance: Mild Distress HEENT: PERRL/EOMI Neck: Non Tender, Supple Respiratory: Chest Non Tender, Lungs Clear, Normal Breath Sounds Cardiovascular: Regular Rate, Rhythm, Systolic Murmur Gastrointestinal: No Pulsatile Mass, Abnormal Bowel Sounds, Distended Rectal: Deferred Back: Normal Inspection Extremity: Non Tender, No Calf Tenderness Neurologic/Psychiatric: Alert, Oriented x3 Skin: Warm/Dry Assessment/Plan Assessment/Plan Assessment and Plan 11/23/20- attempting conservative management for his SBO- NG, npo. continue inhaler/Respiratory therapy for his COPD, supplemental oxygen. -meropenem started on admission for the small pneumoperitoneum as well as the left lung infiltrate. Dispo: guarded as patient has multiple serious comorbidities that could result in rapid deterioration. Problems: (1) Small bowel obstruction (2) Hypothyroid (3) CAD (coronary artery disease) (4) COPD (chronic obstructive pulmonary disease) (5) Adenocarcinoma of colon (6) Diabetes (7) Colon cancer metastasized to liver ETELVINA WALLACE MD November 23, 2020 09:16
[2020-11-23] MEDS ORDERED: DIATRIZOATE MEGLUM/SODIUM 37% 120 ML (GASTROGRAFIN) NG ONE (09:45)
--- NOTE | 2020-11-23 09:50 | Progress Note - Surgery ---
Subjective Date Seen by a Provider: November 23, 2020 Time Seen by a Provider: 09:46 Subjective/Events-last exam Patient feeling a little bit better today. NG tube is made his belly decreasing abdominal girth. Not having nausea and vomiting now. Pain has decreased to now minimal. No flatus or bowel movement denies fever sweats chills shortness of breath or chest pain. Focused Exam Lactate Level 11/22/20 15:56: Lactic Acid Level 0.98 Objective Exam Vital Signs Date Time Temp Pulse Resp B/P (MAP) Pulse Ox O2 Delivery O2 Flow Rate FiO2 11/23/20 08:19 36.8 86 22 147/73 (97) 95 Nasal Cannula 3.00 11/23/20 04:57 36.6 87 16 131/68 (89) 94 Nasal Cannula 3.00 11/23/20 00:12 36.5 91 18 127/75 (92) 92 Room Air 11/22/20 19:47 36.4 99 18 147/67 (93) 97 Room Air 11/22/20 17:47 Room Air 11/22/20 17:45 36.5 94 20 159/77 (104) 93 Room Air 11/22/20 17:00 86 19 140/78 92 Room Air 11/22/20 12:34 99 17 152/76 (101) 94 Room Air I & O 11/23/20 07:00 Intake Total 1020 ml Output Total 500 ml Balance 520 ml Capillary Refill : Less Than 3 Seconds General Appearance: No Apparent Distress, Chronically ill HEENT: PERRL/EOMI, Normal ENT Inspection Neck: Normal Inspection, Non Tender Respiratory: Chest Non Tender, No Accessory Muscle Use, No Respiratory Distress Cardiovascular: Regular Rate, Rhythm, No JVD Gastrointestinal: No soft; distended (less), tenderness (less diffuse) Neurologic/Psychiatric: Alert, Oriented x3, No Motor/Sensory Deficits, Normal Mood/Affect, paid search analyst II-XII Norm as Tested Skin: Normal Color, Warm/Dry Lymphatic: No Adenopathy Results Lab Laboratory Tests 11/22/20 12:48: White Blood Count 8.9, Red Blood Count 4.59, Hemoglobin 10.9L, Hematocrit 37L, M sadaf Corpuscular Volume 80, Mean Corpuscular Hemoglobin 24L, Mean Corpuscular Hemoglobin Concent 30L, Red Cell Distribution Width 17.3H, Platelet Count 276, Mean Platelet Volume 9.9, Immature Granulocyte % (Auto) 1, Neutrophils (%) (Auto) 88H, Lymphocytes (%) (Auto) 5L, Monocytes (%) (Auto) 5, Eosinophils (%) (Auto) 1, Basophils (%) (Auto) 0, Neutrophils # (Auto) 7.8, Lymphocytes # (Auto) 0.5L, Monocytes # (Auto) 0.5, Eosinophils # (Auto) 0.1, Basophils # (Auto) 0.0, Immature Granulocyte # (Auto) 0.1, Neutrophils % (Manual) 86, Lymphocytes % (Manual) 6, Monocytes % (Manual) 7, Eosinophils % (Manual) 1, Microcytosis SLIGHT, Prothrombin Time 15.2H, INR Comment 1.2, Activated Partial Thromboplast Time 23L, Sodium Level 133L, Potassium Level 4.3, Chloride Level 93L, Carbon Dioxide Level 22, Anion Gap 18H, Blood Urea Nitrogen 37H, Creatinine 0.93, Estimat Glomerular Filtration Rate > 60, BUN/Creatinine Ratio 40, Glucose Level 132H, Calcium Level 10.1, Corrected Calcium 10.5H, Total Bilirubin 0.4, Aspartate Amino Transf (AST/SGOT) 29, Alanine Aminotransferase (ALT/SGPT) 26, Alkaline Phosphatase 139H, C-Reactive Protein High Sensitivity 16.39H, Total Protein 8.5H, Albumin 3.5, Lipase 113H 11/22/20 15:00: Urine Color YELLOW, Urine Clarity CLEAR, Urine pH 6.0, Urine Specific [place] 1.010L, Urine Protein TRACEH, Urine Glucose (UA) NEGATIVE, Urine Ketones TRACEH, Urine Nitrite NEGATIVE, Urine Bilirubin NEGATIVE, Urine Urobilinogen 0.2, Urine Leukocyte Esterase NEGATIVE, Urine RBC (Auto) NEGATIVE, Urine RBC NONE, Urine WBC RARE, Urine Squamous Epithelial Cells RARE, Urine Crystals NONE, Urine Bacteria TRACE, Urine Casts NONE, Urine Mucus SMALLH, Urine Culture Indicated NO, Coronavirus 2019 ([place]) Negative 11/22/20 15:56: Lactic Acid Level 0.98 11/23/20 05:51: White Blood Count 12.0H, Red Blood Count 3.84L, Hemoglobin 9.2L, Hematocrit 31L, Mean Corpuscular Volume 80, Mean Corpuscular Hemoglobin 24L, Mean Corpuscular Hemoglobin Concent 30L, Red Cell Distribution Width 15.9H, Platelet Count 284, Mean Platelet Volume 9.5, Immature Granulocyte % (Auto) 1, Neutrophils (%) (Auto) 85H, Lymphocytes (%) (Auto) 7L, Monocytes (%) (Auto) 6, Eosinophils (%) (Auto) 1, Basophils (%) (Auto) 0, Neutrophils # (Auto) 10.2H, Lymphocytes # (Auto) 0.8L, Monocytes # (Auto) 0.8, Eosinophils # (Auto) 0.2, Basophils # (Auto) 0.0, Immature Granulocyte # (Auto) 0.1, Sodium Level 133L, Potassium Level 3.8, Chloride Level 98, Carbon Dioxide Level 24, Anion Gap 11, Blood Urea Nitrogen 27H, Creatinine 0.81, Estimat Glomerular Filtration Rate > 60, BUN/Creatinine Ratio 33, Glucose Level 104, Calcium Level 9.0, Corrected Calcium 10.0, Total Bilirubin 0.4, Aspartate Amino Transf (AST/SGOT) 28, Alanine Am inotransferase (ALT/SGPT) 22, Alkaline Phosphatase 114, C-Reactive Protein High Sensitivity 18.72H, Total Protein 6.6, Albumin 2.8L Assessment/Plan Assessment/Plan Assessment/Plan metastatic colon cancer small bowel obstruction pneumoperitoneum subcapsular hematoma of liver Diffuse abdominal pain Nausea vomiting Patient with no source of identified of pneumoperitoneum. He is not peritoneal on exam. He does have small bowel obstruction high-grade this is near anastomosis. Will place NG tube and try conservative measures at this time. Patient would prefer to try to keep with conservative measures as well. Patient understands that surgical intervention still may need to be performed. Feeling better after ng tube for decompression. Keep n.p.o. Will get small bowel follow through today. ALISHA HANSEN DO November 23, 2020 09:50
[2020-11-23 11:28] VITALS: BP 145/76
[2020-11-23] MEDS ORDERED: RT-ALBUTEROL INHALER HFA (VENTOLIN HFA) 18 GM IH PRN (12:15)
[2020-11-23] MEDS: UMECLIDINIUM BROMIDE (INCRUSE ELLIPTA) 7'S IH SCH (14:25)
--- NOTE | 2020-11-23 14:48 | Diagnostic Imaging Report ---
Indication: Abdominal pain, follow-up small bowel obstruction. Comparison: CT earlier today. Discussion: Gastrografin was administered through an enteric tube. Serial radiographs were obtained. Enteric tube appears to be in the distal esophagus. There are multiple dilated bowel loops noted. The colon is completely decompressed. On the 5 hour delayed film, there is no progression of contrast into the colon. Contrast remains within the stomach and multiple dilated bowel loops. Contrast is incidentally noted within the bladder from the prior CT. Impression: 1. High-grade distal small bowel obstruction. 2. Enteric tube tip in the distal esophagus. Dictated by: Dictated on workstation # [id number]
[2020-11-23 15:12] VITALS: BP 157/75
[2020-11-23] MEDS: morphine INJ 4 MG/ML 1 ML (VIAL/SYRINGE) IV PRN ×2 (15:36→19:45)
[2020-11-23] MEDS: RT-ALBUTEROL INHALER HFA (VENTOLIN HFA) 18 GM IH SCH ×2 (16:53→21:46)
[2020-11-23] MEDS: ONDANSETRON 4 MG/2 ML (SDV) Z0FRAN IV PRN (19:50)
[2020-11-23 20:12] VITALS: BP 129/70
[2020-11-24] VITALS: BP 132/65
[2020-11-24] MEDS: LACTATED RINGERS 1,000 ML IV SCH ×4 (00:05→18:54)
[2020-11-24] MEDS: RT-ALBUTEROL INHALER HFA (VENTOLIN HFA) 18 GM IH SCH ×4 (01:49→21:40)
[2020-11-24] MEDS: ONDANSETRON 4 MG/2 ML (SDV) Z0FRAN IV PRN ×2 (02:00→07:49)
[2020-11-24] MEDS: morphine INJ 4 MG/ML 1 ML (VIAL/SYRINGE) IV PRN ×6 (02:40→20:12)
[2020-11-24 04:28] VITALS: BP 127/75
[2020-11-24] MEDS: MEROPENEM 500 MG/SWFI 10 ML IV PUSH IV SCH ×8 (04:28→22:08)
[2020-11-24 07:31] VITALS: BP 144/77
[2020-11-24] MEDS: UMECLIDINIUM BROMIDE (INCRUSE ELLIPTA) 7'S IH SCH (07:53)
--- NOTE | 2020-11-24 08:30 | Progress Note ---
Subjective Date Seen by a Provider: November 24, 2020 Time Seen by a Provider: 08:27 Subjective/Events-last exam Fwup SBO, right colon adenocarcinoma, HTN, Hx of CAD. NG tube in place but distention worsening and no flatus and c/o nausea anytime he moves. Focused Exam Lactate Level 11/22/20 15:56: Lactic Acid Level 0.98 Objective Exam Vital Signs Date Time Temp Pulse Resp B/P (MAP) Pulse Ox O2 Delivery O2 Flow Rate FiO2 11/24/20 08:03 91 Room Air 11/24/20 08:01 91 Room Air 11/24/20 07:31 36.4 98 20 144/77 (99) 94 Room Air 11/24/20 04:28 36.4 98 18 127/75 (92) 93 Room Air 11/24/20 01:49 93 Room Air 11/24/20 00:00 36.5 95 18 132/65 (87) 92 Room Air 11/23/20 22:00 92 Room Air 11/23/20 20:12 36.2 91 18 129/70 (89) 92 Room Air 11/23/20 15:12 36.5 92 20 157/75 (102) 93 Room Air 11/23/20 11:28 37.2 96 20 145/76 (99) 94 Nasal Cannula 3.00 I & O 11/24/20 07:00 Output Total 1150 ml Balance -1150 ml Capillary Refill : Less Than 3 Seconds General Appearance: Moderate Distress Neck: Supple Respiratory: Lungs Clear Cardiovascular: Regular Rate, Rhythm, Systolic Murmur Gastrointestinal: abnormal bowel sounds (hypoactive), distended, tenderness, other (NG tube in place) Extremity: No Calf Tenderness, No Pedal Edema Neurologic/Psychiatric: Alert, Oriented x3 Results Lab Microbiology 11/22/20 Blood Culture - Preliminary, Resulted Staph, Coag Neg (SEAM CLOSER) See Comments Assessment/Plan Assessment/Plan Assess & Plan/Chief Complaint 1. SBO--repeat CBC and KUB, await surgical decision 2. HTN--stable 3. Right Colon Adenocarcinoma 4. Hx. of CAD--stable YENI RUVALCABA DO November 24, 2020 08:30
[2020-11-24] MEDS ORDERED: NON-FORMULARY MEDICATION 1 EA EA (Umeclidinium Brm/Vilanterol Tr (Anoro Ellipta 62.5-25 Mc IH SCH (09:00)
[2020-11-24 09:07] LABS: HEMOGLOBIN 9.6 g/dL (13.3-17.7); MEAN PLATELET VOLUME 9.5 fL (9.0-12.2); WHITE BLOOD COUNT 12.5 10^3/uL (4.3-11.0)
--- NOTE | 2020-11-24 09:23 | Diagnostic Imaging Report ---
Portable supine abdomen at 8:41. Indication: Small bowel obstruction The 5-hour film of the small bowel and study performed on 11/23/2020 failed to show any progression of the Gastrografin into the colon. On this study however there may be some contrast within the descending and transverse colon. This is difficult to state with certainty, but I do suspect that the small bowel obstruction is not complete.. If further imaging is desired, then CT would be recommended. The overall appearance of the abdomen has not changed significantly otherwise. The NG line seen previously is again evident. Impression: 1. There is extension of contrast into the ascending and transverse colon indicating that the small bowel obstruction is not complete. If further study is desired, then CT of the abdomen and pelvis would be recommended. 2. The results were discussed with Dr Osmin Ramos. Dictated by: Dictated on workstation # [id number]
[2020-11-24] MEDS: FAMOTIDINE 20MG/2ML IV (PEPCID) IVP SCH ×2 (10:06→22:08)
[2020-11-24] MEDS ORDERED: BISA10SU8 RC (10:35)
[2020-11-24] MEDS ORDERED: ONDA8TAB15 PO (10:35)
[2020-11-24] MEDS ORDERED: POTA10TA6 PO (10:35)
--- NOTE | 2020-11-24 10:45 | Anesthesia-General Post-Op ---
MAC Patient Condition Mental Status/LOC: Same as Preop Cardiovascular: Satisfactory Nausea/Vomiting: Absent Respiratory: Satisfactory Pain: Controlled Complications: Absent Post Op Complications Complications None Follow Up Care/Instructions Patient Instructions None needed. Anesthesiology Discharge Order Discharge Order Patient is doing well, no complaints, stable vital signs, no apparent adverse anesthesia problems. No complications reported per nursing. ZACK DELEON CRNA November 24, 2020 10:45
[2020-11-24 11:22] VITALS: BP 146/80
[2020-11-24 12:44] LABS: ALANINE AMINOTRANSFERASE 48 U/L (0-55); ALBUMIN 2.9 GM/DL (3.2-4.5); ALKALINE PHOSPHATASE 126 U/L (40-136); BILIRUBIN,TOTAL 0.4 MG/DL (0.1-1.0); BUN/CREATININE RATIO 24; CALCIUM 9.2 MG/DL (8.5-10.1); CARBON DIOXIDE 25 MMOL/L (21-32); CHLORIDE 99 MMOL/L (98-107); CREATININE SERUM 0.83 MG/DL (0.60-1.30); GFR ESTIMATED > 60; GLUCOSE 118 MG/DL (70-105); POTASSIUM 3.7 MMOL/L (3.6-5.0); SODIUM 137 MMOL/L (135-145); TOTAL PROTEIN 7.1 GM/DL (6.4-8.2)
--- NOTE | 2020-11-24 13:58 | Progress Note - Surgery ---
Subjective Time Seen by a Provider: 13:30 Subjective/Events-last exam Pt seen and examined, sleepy with NGT in place. Pt had to have NGT replaced because it fell out this afternoon. He states he is doing much better now that the NGT is hooked back up. Review of Systems General: Fatigue Pulmonary: No Dyspnea, No Cough Cardiovascular: No: Chest Pain, Palpitations Gastrointestinal: Abdominal Pain, Constipation; No: Nausea, Vomiting Focused Exam Lactate Level 11/22/20 15:56: Lactic Acid Level 0.98 Objective Exam Vital Signs Date Time Temp Pulse Resp B/P (MAP) Pulse Ox O2 Delivery O2 Flow Rate FiO2 11/24/20 11:22 36.8 101 22 146/80 (102) 92 Room Air 11/24/20 08:03 91 Room Air 11/24/20 08:01 91 Room Air 11/24/20 08:00 91 Room Air 3.00 11/24/20 07:31 36.4 98 20 144/77 (99) 94 Room Air 11/24/20 04:28 36.4 98 18 127/75 (92) 93 Room Air 11/24/20 01:49 93 Room Air 11/24/20 00:00 36.5 95 18 132/65 (87) 92 Room Air 11/23/20 22:00 92 Room Air 11/23/20 20:12 36.2 91 18 129/70 (89) 92 Room Air 11/23/20 15:12 36.5 92 20 157/75 (102) 93 Room Air I & O 11/24/20 07:00 Output Total 1150 ml Balance -1150 ml Capillary Refill : Less Than 3 Seconds General Appearance: No Apparent Distress HEENT: PERRL/EOMI Respiratory: Lungs Clear, No Accessory Muscle Use, No Respiratory Distress Cardiovascular: Regular Rate, Rhythm, Systolic Murmur Gastrointestinal: soft, abnormal bowel sounds (hypoactive), distended, tenderness, other (NG tube in place) Extremity: No Calf Tenderness, No Pedal Edema Neurologic/Psychiatric: Alert, Oriented x3 Results Lab Laboratory Tests 11/24/20 08:55: White Blood Count 12.5H, Red Blood Count 4.08L, Hemoglobin 9.6L, Hematocrit 33L, Mean Corpuscular Volume 80, Mean Corpuscular Hemoglobin 24L, Mean Corpuscular Hemoglobin Concent 30L, Red Cell Distribution Width 15.9H, Platelet Count 291, Mean Platelet Volume 9.5, Sodium Level 137, Potassium Level 3.7, Chloride Level 99, Carbon Dioxide Level 25, Anion Gap 13, Blood Urea Nitrogen 20H, Creatinine 0.83, Estimat Glomerular Filtration Rate > 60, BUN/Creatinine Ratio 24, Glucose Level 118H, Calcium Level 9.2, Corrected Calcium 10.1, Total Bilirubin 0.4, Aspartate Amino Transf (AST/SGOT) 66H, Alanine Aminotransferase (ALT/SGPT) 48, Alkaline Phosphatase 126, Total Protein 7.1, Albumin 2.9L Microbiology 11/22/20 Blood Culture - Preliminary, Resulted Efra Contreras Neg (DECORATION CHECKER) See Comments Assessment/Plan Assessment/Plan Assessment/Plan 1. PSBO--Contrast is into colon today, would continue NGT and NPO, encourage ambulation. I think chemo will help, pt has metastatic disease in his abdomen 2. HTN--stable 3. Right Colon Adenocarcinoma 4. Hx. of CAD--stable I did talk to and pt regarding would he even want surgery.....if he needed it. They were unsure and wanted to think about it, he didn't want it to delay chemotherapy and I tried to get across the point that if he had a perforation or a complete obstruction......at that point he would have 2 choices surgery or hospice. BEBE MARTIN DO November 24, 2020 13:58
[2020-11-24 16:00] VITALS: BP 146/77
[2020-11-24 20:40] VITALS: BP 161/80
[2020-11-25 00:13] VITALS: BP 144/73
[2020-11-25] MEDS: morphine INJ 4 MG/ML 1 ML (VIAL/SYRINGE) IV PRN ×8 (00:17→23:27)
[2020-11-25] MEDS: LACTATED RINGERS 1,000 ML IV SCH ×4 (01:33→23:24)
[2020-11-25] MEDS: RT-ALBUTEROL INHALER HFA (VENTOLIN HFA) 18 GM IH SCH ×4 (01:53→22:02)
[2020-11-25] MEDS: MEROPENEM 500 MG/SWFI 10 ML IV PUSH IV SCH ×8 (04:01→20:59)
[2020-11-25 04:02] VITALS: BP 136/76
[2020-11-25 04:52] LABS: HEMOGLOBIN 9.3 g/dL (13.3-17.7); MEAN PLATELET VOLUME 9.2 fL (9.0-12.2); WHITE BLOOD COUNT 10.4 10^3/uL (4.3-11.0)
[2020-11-25 05:10] LABS: ALANINE AMINOTRANSFERASE 47 U/L (0-55); ALBUMIN 2.5 GM/DL (3.2-4.5); ALKALINE PHOSPHATASE 102 U/L (40-136); BILIRUBIN,TOTAL 0.4 MG/DL (0.1-1.0); BUN/CREATININE RATIO 19; CALCIUM 8.5 MG/DL (8.5-10.1); CARBON DIOXIDE 25 MMOL/L (21-32); CHLORIDE 99 MMOL/L (98-107); CREATININE SERUM 0.69 MG/DL (0.60-1.30); GFR ESTIMATED > 60; GLUCOSE 97 MG/DL (70-105); POTASSIUM 3.5 MMOL/L (3.6-5.0); SODIUM 137 MMOL/L (135-145); TOTAL PROTEIN 6.2 GM/DL (6.4-8.2)
[2020-11-25 08:00] VITALS: BP 170/81
[2020-11-25] MEDS: UMECLIDINIUM BROMIDE (INCRUSE ELLIPTA) 7'S IH SCH (08:12)
--- NOTE | 2020-11-25 09:08 | Progress Note - Surgery ---
Subjective Time Seen by a Provider: 08:27 Subjective/Events-last exam Pt seen and examined, sitting up in chair appears comfortable. Pt states he gets some occasional sharp shooting pains, but abdomen is much better. He denies flatus and BMs; NGT still has moderate amount of output. Pt states he does not know when he is finished peeing, this is new for him. Review of Systems General: Fatigue Pulmonary: No Dyspnea, No Cough Cardiovascular: No: Chest Pain Gastrointestinal: Nausea, Abdominal Pain; No: Vomiting Genitourinary: Dysuria Focused Exam Lactate Level 11/22/20 15:56: Lactic Acid Level 0.98 Objective Exam Vital Signs Date Time Temp Pulse Resp B/P (MAP) Pulse Ox O2 Delivery O2 Flow Rate FiO2 11/25/20 08:13 94 Room Air 11/25/20 08:00 36.1 99 20 170/81 (110) 92 Room Air 11/25/20 04:02 36.2 100 18 136/76 (96) 92 Room Air 11/25/20 01:53 91 Room Air 11/25/20 00:13 36.3 94 18 144/73 (96) 94 Room Air 11/24/20 21:40 90 Room Air 11/24/20 20:40 36.2 95 18 161/80 (107) 94 Room Air 11/24/20 20:15 Room Air 11/24/20 16:00 36.8 101 22 146/77 (100) 92 Room Air 11/24/20 15:17 90 Room Air 11/24/20 11:22 36.8 101 22 146/80 (102) 92 Room Air I & O 11/25/20 07:00 Intake Total 0 ml Output Total 2550 ml Balance -2550 ml Capillary Refill : Less Than 3 Seconds General Appearance: No Apparent Distress HEENT: PERRL/EOMI, Other (NGT in place) Respiratory: Lungs Clear, No Accessory Muscle Use, No Respiratory Distress Cardiovascular: Regular Rate, Rhythm, Systolic Murmur Gastrointestinal: soft, abnormal bowel sounds (hypoactive), tenderness (with deep palpation) Extremity: No Calf Tenderness, No Pedal Edema Neurologic/Psychiatric: Alert, Oriented x3 Results Lab Laboratory Tests 11/25/20 04:39: White Blood Count 10.4, Red Blood Count 3.92L, Hemoglobin 9.3L, Hematocrit 31L, Mean Corpuscular Volume 79L, Mean Corpuscular Hemoglobin 24L, Mean Corpuscular Hemoglobin Concent 30L, Red Cell Distribution Width 15.9H, Platelet Count 300, Mean Platelet Volume 9.2, Sodium Level 137, Potassium Level 3.5L, Chloride Level 99, Carbon Dioxide Level 25, Anion Gap 13, Blood Urea Nitrogen 13, Creatinine 0.69, Estimat Glomerular Filtration Rate > 60, BUN/Creatinine Ratio 19, Glucose Level 97, Calcium Level 8.5, Corrected Calcium 9.7, Total Bilirubin 0.4, Aspartate Amino Transf (AST/SGOT) 50H, Alanine Aminotransferase (ALT/SGPT) 47, Alkaline Phosphatase 102, Total Protein 6.2L, Albumin 2.5L Microbiology 11/22/20 Blood Culture - Preliminary, Resulted Efra Contreras Neg (SUPERVISING CHEF) See Comments Assessment/Plan Assessment/Plan Assessment/Plan 1. PSBO--Contrast is into colon today, would continue NGT and NPO, encourage ambulation. I think chemo will help, pt has metastatic disease in his abdomen - will see if Dr. Calvert can come see pt in hospital 2. HTN--stable 3. Right Colon Adenocarcinoma 4. Hx. of CAD--stable I did talk to and pt regarding would he even want surgery.....if he needed it. They were unsure and wanted to think about it, he didn't want it to delay chemotherapy and I tried to get across the point that if he had a perforation or a complete obstruction......at that point he would have 2 choices surgery or hospice. BEBE MARTIN DO November 25, 2020 09:08
[2020-11-25] MEDS: FAMOTIDINE 20MG/2ML IV (PEPCID) IVP SCH ×2 (09:58→20:59)
[2020-11-25 12:00] VITALS: BP 150/85
--- NOTE | 2020-11-25 12:52 | Progress Note ---
Subjective Date Seen by a Provider: November 25, 2020 Time Seen by a Provider: 12:47 Subjective/Events-last exam Fwup SBO, right colon adenocarcinoma, HTN, Hx of CAD. Upper abdominal wound just opened up and is draining feces. Dr. Skaggs at bedside. Focused Exam Lactate Level 11/22/20 15:56: Lactic Acid Level 0.98 Objective Exam Vital Signs Date Time Temp Pulse Resp B/P (MAP) Pulse Ox O2 Delivery O2 Flow Rate FiO2 11/25/20 12:00 36.0 107 20 150/85 (106) 92 Room Air 11/25/20 08:13 94 Room Air 11/25/20 08:00 36.1 99 20 170/81 (110) 92 Room Air 11/25/20 04:02 36.2 100 18 136/76 (96) 92 Room Air 11/25/20 01:53 91 Room Air 11/25/20 00:13 36.3 94 18 144/73 (96) 94 Room Air 11/24/20 21:40 90 Room Air 11/24/20 20:40 36.2 95 18 161/80 (107) 94 Room Air 11/24/20 20:15 Room Air 11/24/20 16:00 36.8 101 22 146/77 (100) 92 Room Air 11/24/20 15:17 90 Room Air I & O 11/25/20 06:59 Intake Total 0 ml Output Total 2550 ml Balance -2550 ml Capillary Refill : Less Than 3 Seconds General Appearance: Moderate Distress Neck: Supple Respiratory: Lungs Clear, Decreased Breath Sounds Cardiovascular: Regular Rate, Rhythm Gastrointestinal: abnormal bowel sounds, distended, other (upper abdominal wound dehiscence with fecal drainage) Extremity: Non Tender, No Calf Tenderness, No Pedal Edema Neurologic/Psychiatric: Alert, Oriented x3 Results Lab Laboratory Tests 11/25/20 04:39: White Blood Count 10.4, Red Blood Count 3.92L, Hemoglobin 9.3L, Hematocrit 31L, Mean Corpuscular Volume 79L, Mean Corpuscular Hemoglobin 24L, Mean Corpuscular Hemoglobin Concent 30L, Red Cell Distribution Width 15.9H, Platelet Count 300, Mean Platelet Volume 9.2, Sodium Level 137, Potassium Level 3.5L, Chloride Level 99, Carbon Dioxide Level 25, Anion Gap 13, Blood Urea Nitrogen 13, Creatinine 0.69, Estimat Glomerular Filtration Rate > 60, BUN/Creatinine Ratio 19, Glucose Level 97, Calcium Level 8.5, Corrected Calcium 9.7, Total Bilirubin 0.4, Aspartate Amino Transf (AST/SGOT) 50H, Alanine Aminotransferase (ALT/SGPT) 47, Alkaline Phosphatase 102, Total Protein 6.2L, Albumin 2.5L Microbiology 11/22/20 Blood Culture - Preliminary, Resulted Ben, Efra Neg (PRODUCT AMBASSADOR) See Comments Assessment/Plan Assessment/Plan Assess & Plan/Chief Complaint 1. SBO--NG tube in place, still no flatus, surgery planning CT scan with oral contrast 2. HTN--start IV metoprolol 3. Right Colon Adenocarcinoma--was awaiting start of chemo 4. Hx. of CAD--stable 5. Wound Dehiscence with Fecal drainage--surgrery evaluating and proceeding with CT scan with gastrograffin to rule out fistula or other etiology YENI RUVALCABA DO November 25, 2020 12:52
--- NOTE | 2020-11-25 15:47 | Diagnostic Imaging Report ---
PROCEDURE: CT abdomen and pelvis without contrast. TECHNIQUE: Multiple contiguous axial images were obtained through the abdomen and pelvis without the use of intravenous contrast. Auto Exposure Controls were utilized during the CT exam to meet ALARA standards for radiation dose reduction. INDICATION: Colonic mass with wound dehiscence and possible fistula. COMPARISON: 11/22/2020. FINDINGS: There is [id number] pleural fluid with subjacent atelectasis in the lung bases, greater on the right. There is stable appearance of what appears to be subcapsular fluid collection superiorly along the right hepatic lobe. Spleen is unremarkable in appearance. Nasogastric tube reaches the stomach with dense contrast opacification of the stomach. There does appear to be focal mural thickening at the level of the gastric pylorus with moderately severe dilatation of the opacified duodenum. There is also good opacification of mildly dilated small bowel into the right lower quadrant. There is edema and/or inflammation with possible contrast leak in the right upper quadrant. Contrast opacifies the anterior abdominal incision site indicating fistulous tract. Surgical suture is seen in the right colonic bed. There is what appears to be decompressed tubular structure extending from the level of the cecum into the right upper quadrant which may represent blind limb. There is mild free fluid within the abdomen and pelvis with surgical clips seen in the left hemipelvis. Urinary bladder is unopacified but otherwise unremarkable. No organized fluid collection is seen to indicate an abscess. IMPRESSION: Edema and/or inflammation in the right abdomen with contrast passing from dilated small bowel into the anterior abdominal wall surgical wound indicating fistulous tract. There is a small amount of peritoneal free fluid without organized fluid collection seen in the abdomen or pelvis. There is no significant change in subcapsular fluid along the superior aspect of the right hepatic lobe although there has been increase in bilateral pleural fluid. There is nonobstructing pyloric mural thickening. Dictated by: Dictated on workstation # [id number]
[2020-11-25 16:07] VITALS: BP 146/75
[2020-11-25] MEDS: meTOprolol 5 MG/5 ML (LOPRESSOR) VIAL IV SCH (18:50)
[2020-11-25 19:50] VITALS: BP 157/79
[2020-11-26 00:09] VITALS: BP 144/77
[2020-11-26] MEDS: meTOprolol 5 MG/5 ML (LOPRESSOR) VIAL IV SCH ×4 (00:10→17:13)
[2020-11-26] MEDS: RT-ALBUTEROL INHALER HFA (VENTOLIN HFA) 18 GM IH SCH ×4 (02:11→18:46)
[2020-11-26 03:59] VITALS: BP 136/74
[2020-11-26] MEDS: MEROPENEM 500 MG/SWFI 10 ML IV PUSH IV SCH ×8 (03:59→21:12)
[2020-11-26] MEDS: morphine INJ 4 MG/ML 1 ML (VIAL/SYRINGE) IV PRN ×6 (03:59→19:38)
[2020-11-26] MEDS: LACTATED RINGERS 1,000 ML IV SCH ×4 (05:29→21:00)
[2020-11-26 07:38] VITALS: BP 151/82
[2020-11-26] MEDS: FAMOTIDINE 20MG/2ML IV (PEPCID) IVP SCH ×2 (08:49→21:12)
[2020-11-26] MEDS: UMECLIDINIUM BROMIDE (INCRUSE ELLIPTA) 7'S IH SCH (09:47)
[2020-11-26 11:12] VITALS: BP 157/77
[2020-11-26] MEDS ORDERED: TPN IV SCH (14:30)
[2020-11-26 15:37] VITALS: BP 153/74
[2020-11-26 19:31] VITALS: BP 163/82
--- NOTE | 2020-11-26 20:13 | CONSULTATION REPORT ---
DATE OF SERVICE: 11/26/2020 The patient is admitted to room 414. PHYSICIAN REQUESTING CONSULTATION: Troy Skaggs DO HISTORY: A 64-year-old male who presented to the emergency room with abdominal pain, nausea and vomiting as well as constipation. He was found to have probable small-bowel obstruction and admitted to the hospital for further management. 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 He underwent extended right hemicolectomy and omentectomy in late Aug 2020, but had evidence of peritoneal carcinomatosis. He had a fascial dehiscence and enterocutaneous fistula requiring readmission with exploratory laparotomy, small bowel resection and wound VAC placement. 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 Medical oncology consultation was requested for concurrent care. PAST MEDICAL HISTORY: Significant for the signet cell carcinoma of the cecum/appendix diagnosed in 08/2020 as mentioned in the history of present illness. He has history of coronary artery disease with an RI in 2007 requiring a 4-vessel CABG. He has COPD/emphysema diagnosed in 2007. Hypertension diagnosed approximately the same time. Diabetes mellitus diagnosed 3 years ago and hypothyroidism diagnosed three years ago. Long history of gastroesophageal reflux controlled with the proton pump inhibitors. He has osteoarthritis involving his major joints. He has had right and left shoulder replacement surgeries in the past. History of parathyroid adenoma causing hypercalcemia, status post resection. PAST SURGICAL HISTORY: Include a 4-vessel CABG in 2007, hiatal hernia repair x3, the last one in 11/2018. Parathyroid adenoma resected about more than 5 years ago. Arthroscopic left knee surgery in the past. Bilateral shoulder replacement. The right extended hemicolectomy in 08/2020 followed by reexploration with small bowel resection and reanastomosis for enterocutaneous fistula in 09/2020. SOCIAL HISTORY: The patient is and lives in [facility]. His two sons, one of whom in a motor vehicle accident and the other son lives at home. He served 20 years in the and worked at [employer] for 17 years. 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 He has approximately [id number] history of tobacco use, smoking 2 packs a day for 40 years and quit in 2007. No alcohol or recreational drug use. FAMILY HISTORY: Significant for his father who was diagnosed with cancer of spine at 67 years of age. The patient does not know the details of this. His sister was diagnosed with ovarian and breast cancer and was positive for BRCA1 mutation. Maternal aunt had stomach cancer. PHYSICAL EXAMINATION: GENERAL: Today showed an elderly male, weak appearing, awake and oriented, in no acute distress. VITAL SIGNS: Temperature was 36.2, pulse rate of 91, respirations 18, blood pressure 153/74 with oxygen saturation of 99% on 2 liters of oxygen by nasal cannula. HEENT: Normocephalic, extraocular muscles intact, conjunctivae pink, oral mucosa slightly dry. NECK: Supple, with no JVD. No cervical, supraclavicular or axillary lymphadenopathy palpable. CHEST: Symmetrical with an implanted port present. LUNGS: Fairly clear to auscultation without wheezes or rales. CARDIOVASCULAR: Regular in rate and rhythm. No murmurs or gallops heard. ABDOMEN: With midline ostomy bag covering an enterocutaneous fistula with feculent drainage. No definite hepatosplenomegaly or other masses palpable. Right lower and right upper quadrant tenderness on palpation. EXTREMITIES: Showed no edema. NEUROLOGIC: Showed no focal motor deficits. LABORATORY DATA: CBC done yesterday showed white count of 10.4, hemoglobin 9.3, MCV 79, platelet count of 300,000. Chemistry panel done yesterday showed normal electrolytes except potassium level of 3.5. BUN was 13 and creatinine 0.69 with GFR more than 60 mL per minute. Liver function studies were normal except AST level of 50 and albumin level of 2.5. Previous CEA level done on 11/07/2020 was elevated at 242.7. IMPRESSION: 1. Poorly differentiated adenocarcinoma of the cecum, signet ring type with peritoneal carcinomatosis, status post extended right hemicolectomy with partial omentectomy on 09/20/2020. 2. Enterocutaneous fistula with wound dehiscence requiring exploratory laparotomy with resection of small bowel and wound VAC placement on 09/29/2020. 3. Increasing abdominal pain, nausea and vomiting as well as constipation with evidence of small-bowel obstruction. Admitted to the hospital again on 11/22/2020. The patient has developed another enterocutaneous fistula with feculent drainage now. 4. Peritoneal carcinomatosis with progressive disease. RECOMMENDATIONS: 1. Continue management of enterocutaneous fistula as you are doing. 2. I will defer surgical options to Dr. Skaggs/Richard. We will hold chemotherapy until a surgical decision is made. 3. Agree with IV hydration/parenteral nutrition initially. 4. Overall prognosis is guarded. 5. We will follow the patient with you and make appropriate recommendations. Job ID: [id number] DocumentID: [id number] Dictated Date: 11/26/2020 17:39:52 Plant Production Worker Date: 11/26/2020 20:12:18 Dictated By: TAYLER SOTO MD [facility]
--- NOTE | 2020-11-26 21:52 | Progress Note - Surgery ---
Subjective Date Seen by a Provider: November 26, 2020 Time Seen by a Provider: 09:03 Subjective/Events-last exam Patient with drainage through opening of skin at top of scar that began yesterday. Patient has CT scan that demonstrated enterocutaneous fistula. Patient with NG tube. He did have contrast that has moved into the colon. Patient abdomen is feeling better today. His white counts down to 10. Denies any fever sweats chills shortness of breath or chest pain. Objective Exam Vital Signs Date Time Temp Pulse Resp B/P (MAP) Pulse Ox O2 Delivery O2 Flow Rate FiO2 11/26/20 19:31 36.9 101 20 163/82 (109) 90 Nasal Cannula 2.00 11/26/20 18:47 90 Room Air 11/26/20 15:37 36.2 91 18 153/74 (100) 99 Nasal Cannula 2.00 11/26/20 14:31 87 Room Air 11/26/20 11:12 36.8 98 20 157/77 (103) 91 Room Air 11/26/20 09:47 91 Room Air 11/26/20 08:00 Room Air 11/26/20 07:38 36.4 91 18 151/82 (105) 90 Room Air 11/26/20 03:59 36.0 89 18 136/74 (94) 92 Room Air 11/26/20 02:11 91 Room Air 11/26/20 00:09 36.5 92 18 144/77 (99) 92 Room Air 11/25/20 22:02 95 Room Air I & O 11/26/20 06:59 Intake Total 0 ml Output Total 3470 ml Balance -3470 ml Capillary Refill : Less Than 3 Seconds General Appearance: No Apparent Distress HEENT: PERRL/EOMI, Other (NGT in place) Neck: Non Tender, Supple Respiratory: Lungs Clear, Decreased Breath Sounds Cardiovascular: Regular Rate, Rhythm, No JVD Gastrointestinal: No soft; distended (slight), tenderness (less today), other (fistula middle abdomen above umbilicus) Extremity: Non Tender, No Calf Tenderness, No Pedal Edema Neurologic/Psychiatric: Alert, Oriented x3 Skin: Normal Color, Warm/Dry Lymphatic: No Adenopathy Results Lab Microbiology 11/22/20 Blood Culture - Preliminary, Resulted Staph, Coag Neg (CARD TENDER) See Comments Assessment/Plan Assessment/Plan Assessment/Plan Patient is 64-year-old male with partial small bowel obstruction contrast is making his way into the colon. Enterocutaneous fistula developed and visualized by CT scan Metastatic colon cancer with peritoneal carcinomatosis Given the circumstance of partial small bowel obstruction, enterocutaneous fistula and peritoneal carcinomatosis. 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 I will discuss with the patient that typically with fistulas we let them become more established but in his situation trying to determine whether it would be best to operate versus conservative measures. Discussed with Dr. Calvert that if bowel obstruction would resolve would consider starting with chemotherapy. However if does not resolve would possibly benefit from surgical intervention and also fixing fistula at that time. Will keep patient n.p.o. with NG tube in place. Will start patient on TPN. Patient and to further consider options and discuss further options together tomorrow. ALISHA HANSEN DO November 26, 2020 21:51
[2020-11-27] VITALS: BP 158/76
[2020-11-27] MEDS: meTOprolol 5 MG/5 ML (LOPRESSOR) VIAL IV SCH ×5 (00:04→23:46)
[2020-11-27] MEDS: morphine INJ 4 MG/ML 1 ML (VIAL/SYRINGE) IV PRN ×6 (00:58→21:04)
[2020-11-27] MEDS: RT-ALBUTEROL INHALER HFA (VENTOLIN HFA) 18 GM IH SCH ×4 (02:28→23:05)
[2020-11-27 03:47] VITALS: BP 153/79
[2020-11-27] MEDS: MEROPENEM 500 MG/SWFI 10 ML IV PUSH IV SCH ×4 (04:59→10:11)
[2020-11-27 05:25] LABS: ALBUMIN 2.3 GM/DL (3.2-4.5); CHLORIDE 95 MMOL/L (98-107); POTASSIUM 3.1 MMOL/L (3.6-5.0); SODIUM 134 MMOL/L (135-145)
[2020-11-27 05:26] LABS: CALCIUM 7.9 MG/DL (8.5-10.1)
[2020-11-27 05:27] LABS: GLUCOSE 88 MG/DL (70-105); TOTAL PROTEIN 5.7 GM/DL (6.4-8.2); TRIGLYCERIDES 114 MG/DL (<150)
[2020-11-27 05:28] LABS: CARBON DIOXIDE 25 MMOL/L (21-32)
[2020-11-27 05:29] LABS: BILIRUBIN,TOTAL 0.4 MG/DL (0.1-1.0)
[2020-11-27 05:31] LABS: ALKALINE PHOSPHATASE 81 U/L (40-136); CREATININE SERUM 0.58 MG/DL (0.60-1.30); GFR ESTIMATED > 60; PHOSPHORUS 2.1 MG/DL (2.3-4.7)
[2020-11-27 05:32] LABS: BUN/CREATININE RATIO 9
[2020-11-27 05:33] LABS: MAGNESIUM 1.6 MG/DL (1.6-2.4)
[2020-11-27 05:34] LABS: ALANINE AMINOTRANSFERASE 28 U/L (0-55)
[2020-11-27] MEDS: UMECLIDINIUM BROMIDE (INCRUSE ELLIPTA) 7'S IH SCH (06:50)
[2020-11-27 07:23] VITALS: BP 148/75
[2020-11-27] MEDS: FAMOTIDINE 20MG/2ML IV (PEPCID) IVP SCH ×2 (08:24→20:32)
[2020-11-27] MEDS: LACTATED RINGERS 1,000 ML IV SCH ×3 (08:24→23:34)
[2020-11-27] MEDS ORDERED: fentaNYL PATCH 25 MCG (DURAGESIC) TD SCH (08:45)
[2020-11-27 08:56] LABS: MEAN PLATELET VOLUME 9.5 fL (9.0-12.2)
[2020-11-27] MEDS ORDERED: LACTATED RINGERS 1,000 ML IV SCH (09:00)
[2020-11-27] MEDS: POTASSIUM PHOSPHATE INJ 6.8 MM in NS (IVPB) 50 ML IV SCH ×6 (10:11→18:34)
[2020-11-27] MEDS: ENOXAPARIN 40 MG/0.4 ML (LOVENOX) SYR SC SCH (10:15)
--- NOTE | 2020-11-27 10:18 | Diagnostic Imaging Report ---
INDICATION: Lung crackles. TIME OF EXAM: 9:17 AM COMPARISON is made with prior radiograph from 11/22/2020. Changes of median sternotomy are noted. Right chest wall port has tip overlying the SVC. Patient has developed airspace infiltrates in the mid and lower lung marques bilaterally consistent with pneumonia. There are trace bilateral effusions. There is no pneumothorax seen. Postoperative changes of the bilateral shoulders are noted. IMPRESSION: Development of airspace pulmonary infiltrates bilaterally as well as small bilateral pleural effusions when compared with an examination 5 days earlier. Dictated by: Dictated on workstation # [id number]
[2020-11-27 11:38] VITALS: BP 139/83
[2020-11-27] MEDS ORDERED: FUROSEMIDE 40 MG/4 ML INJ (LASIX) IVP NR (14:00)
--- NOTE | 2020-11-27 14:04 | Progress Note ---
Subjective Date Seen by a Provider: November 26, 2020 Time Seen by a Provider: 08:35 Subjective/Events-last exam Fwup SBO, right colon adenocarcinoma, HTN, Hx of CAD, enterocutaneous fistula. Patient still has not passed anything through anus. Objective Exam Vital Signs Date Time Temp Pulse Resp B/P (MAP) Pulse Ox O2 Delivery O2 Flow Rate FiO2 11/27/20 11:38 36.4 85 16 139/83 (101) 94 Nasal Cannula 5.00 11/27/20 08:00 Nasal Cannula 5.00 11/27/20 07:23 36.5 92 18 148/75 (99) 92 Nasal Cannula 5.00 11/27/20 06:52 94 Nasal Cannula 5.00 11/27/20 03:47 36.4 96 20 153/79 (103) 90 Nasal Cannula 2.00 11/27/20 02:28 80 Room Air 11/27/20 00:00 36.6 87 20 158/76 (103) 92 Nasal Cannula 2.00 11/26/20 20:00 Room Air 11/26/20 19:31 36.9 101 20 163/82 (109) 90 Nasal Cannula 2.00 11/26/20 18:47 90 Room Air 11/26/20 15:37 36.2 91 18 153/74 (100) 99 Nasal Cannula 2.00 11/26/20 14:31 87 Room Air I & O 11/27/20 07:00 Intake Total 0 ml Output Total 1850 ml Balance -1850 ml Capillary Refill : Less Than 3 Seconds General Appearance: Mild Distress Respiratory: Lungs Clear Cardiovascular: Regular Rate, Rhythm Gastrointestinal: abnormal bowel sounds, distended, other (ostomy bag to ventral incision with feces in bag) Extremity: Non Tender, No Calf Tenderness, No Pedal Edema Skin: Warm/Dry Results Lab Laboratory Tests 11/27/20 04:55: White Blood Count 10.0, Red Blood Count 3.77L, Hemoglobin 9.0L, Hematocrit 29L, Mean Corpuscular Volume 76L, Mean Corpuscular Hemoglobin 24L, Mean Corpuscular Hemoglobin Concent 31L, Red Cell Distribution Width 15.6H, Platelet Count 287, Mean Platelet Volume 9.5, Sodium Level 134L, Potassium Level 3.1L, Chloride Level 95L, Carbon Dioxide Level 25, Anion Gap 14, Blood Urea Nitrogen 5L, Creatinine 0.58L, Estimat Glomerular Filtration Rate > 60, BUN/Creatinine Ratio 9, Glucose Level 88, Calcium Level 7.9L, Corrected Calcium 9.3, Phosphorus Level 2.1L, Magnesium Level 1.6, Total Bilirubin 0.4, Aspartate Amino Transf (AST/SGOT) 32, Alanine Aminotransferase (ALT/SGPT) 28, Alkaline Phosphatase 81, C-Reactive Protein High Sensitivity 17.30H, Total Protein 5.7L, Albumin 2.3L, Triglycerides Level 114 Microbiology 11/22/20 Blood Culture - Preliminary, Resulted Ben, Caridadg Neg (SPORTS MEDICINE PHYSICIAN) See Comments Assessment/Plan Assessment/Plan Assess & Plan/Chief Complaint 1. SBO--NG tube in place, still no flatus 2. HTN--on IV metoprolol 3. Right Colon Adenocarcinoma--was awaiting start of chemo 4. Hx. of CAD--stable 5. Wound Dehiscence with Fecal drainage--enterocutaneous fistula--surgeon discussing options YENI RUVALCABA DO November 27, 2020 14:04
[2020-11-27 16:08] VITALS: BP 168/73
[2020-11-27] MEDS ORDERED: SODIUM ACETATE IV SCH ×11 (17:00)
[2020-11-27] MEDS ORDERED: [UNRECOGNIZED DRUG - OTHER] IV SCH ×11 (17:00)
[2020-11-27] MEDS ORDERED: SODIUM CHLORIDE IV SCH ×11 (17:00)
--- NOTE | 2020-11-27 17:07 | Progress Note ---
Subjective Date Seen by a Provider: November 27, 2020 Time Seen by a Provider: 08:30 Subjective/Events-last exam Fwup SBO, right colon adenocarcinoma, HTN, Hx of CAD, enterocutaneous fistula. Still no flatus or BM. Having increased pain. Now on oxygen at 5 liters. Objective Exam Vital Signs Date Time Temp Pulse Resp B/P (MAP) Pulse Ox O2 Delivery O2 Flow Rate FiO2 11/27/20 16:08 36.3 90 17 168/73 (104) 92 Nasal Cannula 5.00 11/27/20 11:38 36.4 85 16 139/83 (101) 94 Nasal Cannula 5.00 11/27/20 08:00 Nasal Cannula 5.00 11/27/20 07:23 36.5 92 18 148/75 (99) 92 Nasal Cannula 5.00 11/27/20 06:52 94 Nasal Cannula 5.00 11/27/20 03:47 36.4 96 20 153/79 (103) 90 Nasal Cannula 2.00 11/27/20 02:28 80 Room Air 11/27/20 00:00 36.6 87 20 158/76 (103) 92 Nasal Cannula 2.00 11/26/20 20:00 Room Air 11/26/20 19:31 36.9 101 20 163/82 (109) 90 Nasal Cannula 2.00 11/26/20 18:47 90 Room Air I & O 11/27/20 07:00 Intake Total 0 ml Output Total 1850 ml Balance -1850 ml Capillary Refill : Less Than 3 Seconds General Appearance: Moderate Distress Respiratory: Crackles, Decreased Breath Sounds Cardiovascular: Regular Rate, Rhythm, Systolic Murmur Gastrointestinal: abnormal bowel sounds, distended, other (ostomy bag to top of incision with fecal material) Extremity: Non Tender, No Calf Tenderness, No Pedal Edema Neurologic/Psychiatric: Alert, Oriented x3 Results Lab Laboratory Tests 11/27/20 04:55: White Blood Count 10.0, Red Blood Count 3.77L, Hemoglobin 9.0L, Hematocrit 29L, Mean Corpuscular Volume 76L, Mean Corpuscular Hemoglobin 24L, Mean Corpuscular Hemoglobin Concent 31L, Red Cell Distribution Width 15.6H, Platelet Count 287, Mean Platelet Volume 9.5, Sodium Level 134L, Potassium Level 3.1L, Chloride Level 95L, Carbon Dioxide Level 25, Anion Gap 14, Blood Urea Nitrogen 5L, Creatinine 0.58L, Estimat Glomerular Filtration Rate > 60, BUN/Creatinine Ratio 9, Glucose Level 88, Calcium Level 7.9L, Corrected Calcium 9.3, Phosphorus Level 2.1L, Magnesium Level 1.6, Total Bilirubin 0.4, Aspartate Amino Transf (AST/SGOT) 32, Alanine Aminotransferase (ALT/SGPT) 28, Alkaline Phosphatase 81, C-Reactive Protein High Sensitivity 17.30H, Total Protein 5.7L, Albumin 2.3L, Triglycerides Level 114 Microbiology 11/22/20 Blood Culture - Preliminary, Resulted Efra Contreras Neg (OCCASIONAL BABYSITTER) See Comments Assessment/Plan Assessment/Plan Assess & Plan/Chief Complaint 1. SBO--NG tube in place, still no flatus or BM, start fentanyl patch for pain control 2. HTN--on IV metoprolol 3. Right Colon Adenocarcinoma--was awaiting start of chemo 4. Hx. of CAD--stable 5. Wound Dehiscence with Fecal drainage--enterocutaneous fistula--surgeon disc ussing options 6. Acute Respiratory Distress--check CXR YENI RUVALCABA DO November 27, 2020 17:07
--- NOTE | 2020-11-27 17:22 | Progress Note - Surgery ---
Subjective Date Seen by a Provider: November 27, 2020 Time Seen by a Provider: 12:53 Subjective/Events-last exam Patient with no significant changes from yesterday. Patient with output from fistula. Minimal discomfort abdomen. Patient states his breathing slightly worse than yesterday. Patient with no other complaints. No flatus or bowel movement. NG tube in place. NPO. Patient on TPN. Objective Exam Vital Signs Date Time Temp Pulse Resp B/P (MAP) Pulse Ox O2 Delivery O2 Flow Rate FiO2 11/27/20 16:08 36.3 90 17 168/73 (104) 92 Nasal Cannula 5.00 11/27/20 11:38 36.4 85 16 139/83 (101) 94 Nasal Cannula 5.00 11/27/20 08:00 Nasal Cannula 5.00 11/27/20 07:23 36.5 92 18 148/75 (99) 92 Nasal Cannula 5.00 11/27/20 06:52 94 Nasal Cannula 5.00 11/27/20 03:47 36.4 96 20 153/79 (103) 90 Nasal Cannula 2.00 11/27/20 02:28 80 Room Air 11/27/20 00:00 36.6 87 20 158/76 (103) 92 Nasal Cannula 2.00 11/26/20 20:00 Room Air 11/26/20 19:31 36.9 101 20 163/82 (109) 90 Nasal Cannula 2.00 11/26/20 18:47 90 Room Air I & O 11/27/20 07:00 Intake Total 0 ml Output Total 1850 ml Balance -1850 ml Capillary Refill : Less Than 3 Seconds General Appearance: No Apparent Distress (Sitting in chair ) HEENT: PERRL/EOMI, Other (NGT in place) Neck: Non Tender, Supple Respiratory: Chest Non Tender, No Accessory Muscle Use, Crackles, Decreased Breath Sounds Cardiovascular: Regular Rate, Rhythm, No JVD Gastrointestinal: abnormal bowel sounds, distended (Minimally), other (ostomy bag to top of incision with fecal material) Extremity: Non Tender, No Calf Tenderness, No Pedal Edema Neurologic/Psychiatric: Alert, Oriented x3 Skin: Normal Color, Warm/Dry Lymphatic: No Adenopathy Results Lab Laboratory Tests 11/27/20 04:55: White Blood Count 10.0, Red Blood Count 3.77L, Hemoglobin 9.0L, Hematocrit 29L, Mean Corpuscular Volume 76L, Mean Corpuscular Hemoglobin 24L, Mean Corpuscular Hemoglobin Concent 31L, Red Cell Distribution Width 15.6H, Platelet Count 287, Mean Platelet Volume 9.5, Sodium Level 134L, Potassium Level 3.1L, Chloride Level 95L, Carbon Dioxide Level 25, Anion Gap 14, Blood Urea Nitrogen 5L, C reatinine 0.58L, Estimat Glomerular Filtration Rate > 60, BUN/Creatinine Ratio 9, Glucose Level 88, Calcium Level 7.9L, Corrected Calcium 9.3, Phosphorus Level 2.1L, Magnesium Level 1.6, Total Bilirubin 0.4, Aspartate Amino Transf (AST/SGOT) 32, Alanine Aminotransferase (ALT/SGPT) 28, Alkaline Phosphatase 81, C-Reactive Protein High Sensitivity 17.30H, Total Protein 5.7L, Albumin 2.3L, Triglycerides Level 114 Microbiology 11/22/20 Blood Culture - Preliminary, Resulted Efra Contreras Neg (TOOL 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 Enterocutaneous fistula developed and visualized by CT scan Metastatic colon cancer with peritoneal carcinomatosis Given the circumstance of partial small bowel obstruction, enterocutaneous fistula and peritoneal carcinomatosis. 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 I will discuss with the patient that typically with fistulas we let them become more established but in his situation trying to determine whether it would be best to operate versus conservative measures. Discussed with Dr. Calvert that if bowel obstruction would resolve would consider starting with chemotherapy. However if does not resolve would possibly benefit from surgical intervention and also fixing fistula at that time. We discussed that surgical intervention could be further resection. Could be diverting loop ileostomy or end ileostomy and small bowel resection due to enterocutaneous fistula. Even if surgical intervention attempted there is possibility that nothing of benefit could be done. Patient is not really wanting any surgical intervention. Also would consider hospice as an option as well. Will keep patient n.p.o. with NG tube in place. Will keep on TPN. Patient and to further consider options and discuss further. ALISHA HANSEN DO November 27, 2020 17:22
[2020-11-27 20:03] VITALS: BP 148/67
[2020-11-27] MEDS: CEFEPIME INJECTION 2,000 MG in WATER (STERILE) FOR INJECTION 20 ML IV SCH (20:32)
[2020-11-28 00:12] VITALS: BP 158/81
[2020-11-28] MEDS: morphine INJ 4 MG/ML 1 ML (VIAL/SYRINGE) IV PRN ×7 (00:30→21:02)
[2020-11-28 03:15] VITALS: BP 144/83
[2020-11-28] MEDS: meTOprolol 5 MG/5 ML (LOPRESSOR) VIAL IV SCH ×3 (05:23→18:08)
[2020-11-28 06:00] LABS: HEMOGLOBIN 9.6 g/dL (13.3-17.7); MEAN PLATELET VOLUME 9.1 fL (9.0-12.2); WHITE BLOOD COUNT 9.8 10^3/uL (4.3-11.0)
[2020-11-28 06:01] LABS: ALBUMIN 2.5 GM/DL (3.2-4.5); CHLORIDE 96 MMOL/L (98-107); POTASSIUM 3.4 MMOL/L (3.6-5.0); SODIUM 136 MMOL/L (135-145)
[2020-11-28] MEDS: RT-ALBUTEROL INHALER HFA (VENTOLIN HFA) 18 GM IH SCH ×4 (06:01→19:04)
[2020-11-28 06:02] LABS: CALCIUM 8.1 MG/DL (8.5-10.1)
[2020-11-28 06:03] LABS: GLUCOSE 127 MG/DL (70-105); TOTAL PROTEIN 6.2 GM/DL (6.4-8.2)
[2020-11-28 06:04] LABS: CARBON DIOXIDE 29 MMOL/L (21-32)
[2020-11-28 06:05] LABS: BILIRUBIN,TOTAL 0.3 MG/DL (0.1-1.0)
[2020-11-28 06:06] LABS: PHOSPHORUS 3.3 MG/DL (2.3-4.7)
[2020-11-28 06:07] LABS: ALKALINE PHOSPHATASE 80 U/L (40-136); CREATININE SERUM 0.63 MG/DL (0.60-1.30); GFR ESTIMATED > 60
[2020-11-28 06:08] LABS: BUN/CREATININE RATIO 11
[2020-11-28 06:09] LABS: MAGNESIUM 1.6 MG/DL (1.6-2.4)
[2020-11-28 06:10] LABS: ALANINE AMINOTRANSFERASE 25 U/L (0-55)
[2020-11-28] MEDS: POTASSIUM CL 10MEQ/50ML IVPB 50 ML IV SCH ×4 (07:53→13:00)
[2020-11-28] MEDS: ENOXAPARIN 40 MG/0.4 ML (LOVENOX) SYR SC SCH (07:56)
[2020-11-28 08:00] VITALS: BP 151/76
[2020-11-28] MEDS: CEFEPIME INJECTION 2,000 MG in WATER (STERILE) FOR INJECTION 20 ML IV SCH ×2 (08:01→20:42)
[2020-11-28] MEDS: UMECLIDINIUM BROMIDE (INCRUSE ELLIPTA) 7'S IH SCH (09:03)
[2020-11-28] MEDS: FAMOTIDINE 20MG/2ML IV (PEPCID) IVP SCH ×2 (09:37→20:42)
--- NOTE | 2020-11-28 11:14 | Progress Note ---
Subjective Date Seen by a Provider: November 28, 2020 Time Seen by a Provider: 11:09 Subjective/Events-last exam Fwup SBO, right colon adenocarcinoma, HTN, Hx of CAD, enterocutaneous fistula. Had large BM last night. Still c/o pain in right hip and lower abdomen. Objective Exam Vital Signs Date Time Temp Pulse Resp B/P (MAP) Pulse Ox O2 Delivery O2 Flow Rate FiO2 11/28/20 09:05 92 Nasal Cannula 5.00 11/28/20 08:12 Nasal Cannula 5.00 11/28/20 08:00 36.0 88 18 151/76 (101) 91 Nasal Cannula 5.00 11/28/20 03:15 36.3 80 18 144/83 (103) 92 Nasal Cannula 5.00 11/28/20 00:12 35.7 87 18 158/81 (106) 92 Nasal Cannula 5.00 11/27/20 20:03 36.0 82 18 148/67 (94) 96 Nasal Cannula 5.00 11/27/20 20:00 Nasal Cannula 5.00 11/27/20 16:45 96 Nasal Cannula 5.00 11/27/20 16:08 36.3 90 17 168/73 (104) 92 Nasal Cannula 5.00 11/27/20 11:38 36.4 85 16 139/83 (101) 94 Nasal Cannula 5.00 I & O 11/28/20 07:00 Intake Total 410 ml Output Total 2205 ml Balance -1795 ml Capillary Refill : Less Than 3 Seconds General Appearance: Moderate Distress Respiratory: Lungs Clear, Decreased Breath Sounds Cardiovascular: Regular Rate, Rhythm, Systolic Murmur Gastrointestinal: abnormal bowel sounds, distended, other (ostomy bag in place over superior wound fistula with fecal material in bag) Extremity: Non Tender, No Calf Tenderness, No Pedal Edema Neurologic/Psychiatric: Alert, Oriented x3 Results Lab Laboratory Tests 11/27/20 17:42: Glucometer 89 11/27/20 23:47: Glucometer 114H 11/28/20 05:15: White Blood Count 9.8, Red Blood Count 4.05L, Hemoglobin 9.6L, Hematocrit 31L, Mean Corpuscular Volume 76L, Mean Corpuscular Hemoglobin 24L, Mean Corpuscular Hemoglobin Concent 31L, Red Cell Distribution Width 15.5H, Platelet Count 313, Mean Platelet Volume 9.1, Sodium Level 136, Potassium Level 3.4L, Chloride Level 96L, Carbon Dioxide Level 29, Anion Gap 11, Blood Urea Nitrogen 7, Creatinine 0.63, Estimat Glomerular Filtration Rate > 60, BUN/Creatinine Ratio 11, Glucose Level 127H, Calcium Level 8.1L, Corrected Calcium 9.3, Phosphorus Level 3.3, Magnesium Level 1.6, Total Bilirubin 0.3, Aspartate Amino Transf (AST/SGOT) 25, Alanine Aminotransferase (ALT/SGPT) 25, Alkaline Phosphatase 80, Total Protein 6.2L, Albumin 2.5L Microbiology 11/22/20 Blood Culture - Preliminary, Resulted Efra Contreras Neg (GAME ROOM ATTENDANT) See Comments Assessment/Plan Assessment/Plan Assess & Plan/Chief Complaint 1. SBO--NG tube in place, still no flatus or BM, started fentanyl patch for pain control and using morphine prn 2. HTN--increase IV metoprolol dose 3. Right Colon Adenocarcinoma--Dr. Calvert to discuss options/prognosis with patient today 4. Hx. of CAD--stable 5. Wound Dehiscence with Fecal drainage--enterocutaneous fistula--TPN started, discussed surgery options vs hospice, patient trying to decide 6. Acute Respiratory Distress--on oxygen 7. Bilateral Pneumonia--started maxipime and will repeat CXR in YENI VITALE DO November 28, 2020 11:14
[2020-11-28] MEDS ORDERED: CHLORASEPTIC SPRAY 177 ML LIQUID MC PRN (11:45)
[2020-11-28] MEDS ORDERED: SALIVA STIMULANT MOUTH SPRAY (BIOTENE) 1.5 OZ MM PRN (11:45)
[2020-11-28 11:48] VITALS: BP 156/86
--- NOTE | 2020-11-28 13:39 | Progress Note - Surgery ---
Subjective Date Seen by a Provider: November 28, 2020 Time Seen by a Provider: 13:35 Subjective/Events-last exam Patient states may be feeling a little bit better today. Had large bowel movement last night. Still has drainage out fistula. NG tube in place. On TPN. Patient still considering options. No new complaints. Objective Exam Vital Signs Date Time Temp Pulse Resp B/P (MAP) Pulse Ox O2 Delivery O2 Flow Rate FiO2 11/28/20 11:48 36.0 94 20 156/86 (109) 94 Nasal Cannula 5.00 11/28/20 09:05 92 Nasal Cannula 5.00 11/28/20 08:12 Nasal Cannula 5.00 11/28/20 08:00 36.0 88 18 151/76 (101) 91 Nasal Cannula 5.00 11/28/20 03:15 36.3 80 18 144/83 (103) 92 Nasal Cannula 5.00 11/28/20 00:12 35.7 87 18 158/81 (106) 92 Nasal Cannula 5.00 11/27/20 20:03 36.0 82 18 148/67 (94) 96 Nasal Cannula 5.00 11/27/20 20:00 Nasal Cannula 5.00 11/27/20 16:45 96 Nasal Cannula 5.00 11/27/20 16:08 36.3 90 17 168/73 (104) 92 Nasal Cannula 5.00 I & O 11/28/20 07:00 Intake Total 410 ml Output Total 2205 ml Balance -1795 ml Capillary Refill : Less Than 3 Seconds General Appearance: No Apparent Distress HEENT: PERRL/EOMI, Other (NGT in place) Neck: Non Tender, Supple Respiratory: Lungs Clear, Decreased Breath Sounds Cardiovascular: Regular Rate, Rhythm, No JVD Gastrointestinal: distended (Slight), tenderness (Minimal tendernes), other (ostomy bag in place over superior wound fistula with fecal material in bag) Extremity: Non Tender, No Calf Tenderness, No Pedal Edema Neurologic/Psychiatric: Alert, Oriented x3 Skin: Normal Color, Warm/Dry Lymphatic: No Adenopathy Results Lab Laboratory Tests 11/27/20 17:42: Glucometer 89 11/27/20 23:47: Glucometer 114H 11/28/20 05:15: White Blood Count 9.8, Red Blood Count 4.05L, Hemoglobin 9.6L, Hematocrit 31L, Mean Corpuscular Volume 76L, Mean Corpuscular Hemoglobin 24L, Mean Corpuscular Hemoglobin Concent 31L, Red Cell Distribution Width 15.5H, Platelet Count 313, Mean Platelet Volume 9.1, Sodium Level 136, Potassium Level 3.4L, Chloride Level 96L, Carbon Dioxide Level 29, Anion Gap 11, Blood Urea Nitrogen 7, Creatinine 0.63, Estimat Glomerular Filtration Rate > 60, BUN/Creatinine Ratio 11, Glucose Level 127H, Calcium Level 8.1L, Corrected Calcium 9.3, Phosphorus Level 3.3, Magnesium Level 1.6, Total Bilirubin 0.3, Aspartate Amino Transf (AST/SGOT) 25, Alanine Aminotransferase (ALT/SGPT) 25, Alkaline Phosphatase 80, Total Protein 6.2L, Albumin 2.5L 11/28/20 11:54: Glucometer 147H Microbiology 11/22/20 Blood Culture - Preliminary, Resulted Efra Contreras Neg (TOOTH POLISHER) See Comments Assessment/Plan Assessment/Plan Assessment/Plan partial small bowel obstruction contrast is making his way into the colon. Enterocutaneous fistula developed and visualized by CT scan Metastatic colon cancer with peritoneal carcinomatosis Had bowel movement yesterday. Hopefully his bowel function will continue to improve. He does have the fistula with the colostomy bag for management of controlling stool through fistula. Patient is considering options surgical versus hospice. We will continue on TPN. NG tube decompression. All questions answered to patient and satisfaction at this time. Informed him to write down all questions so we can discuss. ALISHA HANSEN DO November 28, 2020 13:39
[2020-11-28 15:56] VITALS: BP 143/93
[2020-11-28] MEDS: LACTATED RINGERS 1,000 ML IV SCH ×2 (16:43→21:02)
[2020-11-28] MEDS ORDERED: [UNRECOGNIZED DRUG - OTHER] IV SCH ×11 (17:00)
[2020-11-28] MEDS ORDERED: SODIUM ACETATE IV SCH ×11 (17:00)
[2020-11-28] MEDS ORDERED: SODIUM CHLORIDE IV SCH ×11 (17:00)
--- NOTE | 2020-11-28 17:02 | Progress Note ---
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 Postoperative wound dehiscence and fistula formation requiring reexploration with small bowel resection and reanastomosis. Patient admitted with partial small bowel obstruction and developed another fistula that is draining. He had Gastrografin small bowel follow-through which he is passing through indicating partial obstruction. Patient also had a large bowel movement last night and is feeling better. Met with patient and his both of whom had several questions regarding the cancer, its prognosis and treatment options. Informed them that peritoneal carcinomatosis from colon cancer is not curable. Any treatment would be palliative in nature. Because of the partial small bowel obstruction and fistula, ideally this needs to be fixed and healed before chemotherapy can start. They wanted to discuss this with Dr. Ramos on Tuesday before making a final decision. Also offered the option of obtaining another opinion at a tertiary center including the possibility of HIPEC. Will follow patient with you. TAYLER SOTO November 28, 2020 17:02
[2020-11-28 20:00] VITALS: BP 153/86
[2020-11-29] VITALS (7 sets, daily range): BP systolic 145–164; BP diastolic 81–89
[2020-11-29] MEDS: meTOprolol 5 MG/5 ML (LOPRESSOR) VIAL IV SCH ×5 (00:16→23:23)
[2020-11-29] MEDS: morphine INJ 4 MG/ML 1 ML (VIAL/SYRINGE) IV PRN ×6 (01:30→20:49)
[2020-11-29] MEDS: RT-ALBUTEROL INHALER HFA (VENTOLIN HFA) 18 GM IH SCH ×4 (01:54→20:30)
[2020-11-29 06:37] LABS: ALBUMIN 2.1 GM/DL (3.2-4.5); CHLORIDE 105 MMOL/L (98-107); POTASSIUM 3.4 MMOL/L (3.6-5.0); SODIUM 138 MMOL/L (135-145)
[2020-11-29 06:38] LABS: CALCIUM 7.1 MG/DL (8.5-10.1)
[2020-11-29 06:39] LABS: GLUCOSE 114 MG/DL (70-105)
[2020-11-29 06:40] LABS: TOTAL PROTEIN 5.2 GM/DL (6.4-8.2)
[2020-11-29 06:41] LABS: BILIRUBIN,TOTAL 0.3 MG/DL (0.1-1.0); CARBON DIOXIDE 21 MMOL/L (21-32)
[2020-11-29 06:43] LABS: ALKALINE PHOSPHATASE 66 U/L (40-136); CREATININE SERUM 0.51 MG/DL (0.60-1.30); GFR ESTIMATED > 60
[2020-11-29 06:44] LABS: BUN/CREATININE RATIO 24
[2020-11-29 06:46] LABS: ALANINE AMINOTRANSFERASE 18 U/L (0-55); MAGNESIUM 1.6 MG/DL (1.6-2.4)
--- NOTE | 2020-11-29 09:22 | Diagnostic Imaging Report ---
EXAMINATION: Chest 2 view HISTORY: Pneumonia followup. COMPARISON: Chest radiograph 11/27/2020 FINDINGS: Heart size and pulmonary vasculature are stable surgical changes from CABG. Stable right-sided portacatheter. Enteric catheters unchanged. Stable surgical changes from bilateral shoulder arthroplasty. Surgical clips overlying the left hilum. Calcifications of the aorta. Stable patchy interstitial and airspace opacities seen throughout both lungs. Stable trace right pleural fluid. No pneumothorax. The osseous structures are intact. IMPRESSION: 1. Stable patchy interstitial and airspace opacities throughout both lungs compared to 11/27/2020. Stable small right pleural effusion. Dictated by: Dictated on workstation # [id number]
[2020-11-29] MEDS: UMECLIDINIUM BROMIDE (INCRUSE ELLIPTA) 7'S IH SCH (09:37)
[2020-11-29] MEDS: FAMOTIDINE 20MG/2ML IV (PEPCID) IVP SCH (09:49)
[2020-11-29] MEDS: CEFEPIME INJECTION 2,000 MG in WATER (STERILE) FOR INJECTION 20 ML IV SCH ×2 (09:50→20:43)
[2020-11-29] MEDS: POTASSIUM PHOSPHATE INJ 6.8 MM in NS (IVPB) 50 ML IV SCH ×4 (09:51→14:42)
[2020-11-29] MEDS: ENOXAPARIN 40 MG/0.4 ML (LOVENOX) SYR SC SCH (09:51)
--- NOTE | 2020-11-29 10:12 | Progress Note ---
Subjective Date Seen by a Provider: November 29, 2020 Time Seen by a Provider: 09:40 Subjective/Events-last exam Patient seen with Dr. Dailey. Patient reports abdominal pain that is severe at times. No fever/chills, N/V. Objective Exam Vital Signs Date Time Temp Pulse Resp B/P (MAP) Pulse Ox O2 Delivery O2 Flow Rate FiO2 11/29/20 09:38 92 Nasal Cannula 5.00 11/29/20 08:00 36.3 75 16 160/87 (111) 91 Nasal Cannula 5.00 11/29/20 07:00 72 11/29/20 04:33 36.0 87 20 146/89 (108) 91 Nasal Cannula 5.00 11/29/20 01:54 91 Nasal Cannula 5.00 11/29/20 01:00 70 11/29/20 00:12 36.2 88 18 148/83 (104) 93 Nasal Cannula 5.00 11/28/20 20:45 Nasal Cannula 5.00 11/28/20 20:00 35.5 86 18 153/86 (108) 91 Nasal Cannula 5.00 11/28/20 19:04 90 Nasal Cannula 5.00 11/28/20 19:00 78 11/28/20 15:56 35.8 90 22 143/93 (110) 91 Nasal Cannula 5.00 11/28/20 15:06 91 Nasal Cannula 5.00 11/28/20 13:54 79 11/28/20 11:48 36.0 94 20 156/86 (109) 94 Nasal Cannula 5.00 I & O 11/29/20 06:59 Intake Total 1220 ml Output Total 1525 ml Balance -305 ml Capillary Refill : Less Than 3 Seconds General Appearance: No Apparent Distress, WD/WN Neck: Normal Inspection, Supple Respiratory: No Accessory Muscle Use, No Respiratory Distress Cardiovascular: Regular Rate, Rhythm, No Edema Gastrointestinal: normal bowel sounds, soft, tenderness Extremity: Normal Inspection, Normal Range of Motion Neurologic/Psychiatric: Alert, Oriented x3 Skin: Other (Previous midline abdominal incision with open towards the superior aspect of the incision with colostomy bag with brown, liquid stool, consistent with fistula) Results Lab Laboratory Tests 11/28/20 11:54: Glucometer 147H 11/28/20 18:07: Glucometer 150H 11/29/20 00:23: Glucometer 144H 11/29/20 06:10: Sodium Level 138, Potassium Level 3.4L, Chloride Level 105, Carbon Dioxide Level 21, Anion Gap 12, Blood Urea Nitrogen 12, Creatinine 0.51L, Estimat Glomerular Filtration Rate > 60, BUN/Creatinine Ratio 24, Glucose Level 114H, Calcium Level 7.1L, Corrected Calcium 8.6, Phosphorus Level 2.0L, Magnesium Level 1.6, Total Bilirubin 0.3, Aspartate Amino Transf (AST/SGOT) 25, Alanine Aminotransferase (ALT/SGPT) 18, Alkaline Phosphatase 66, Total Protein 5.2L, Albumin 2.1L Microbiology 11/22/20 Blood Culture - Preliminary, Resulted Staph, Coag Neg (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 Enterocutaneous fistula developed and visualized by CT scan Metastatic colon cancer with peritoneal carcinomatosis VSS Patient considering options surgical vs hospice Continue with TPN, NGT, and colostomy bag for stool from fistula Pain meds YESENIA EASON SKETCH LINER November 29, 2020 10:12
--- NOTE | 2020-11-29 11:39 | Progress Note ---
Subjective Date Seen by a Provider: November 29, 2020 Time Seen by a Provider: 11:35 Subjective/Events-last exam Fwup SBO, right colon adenocarcinoma, HTN, Hx of CAD, enterocutaneous fistula, acute respiratory distress, bilateral pneumonia. C/O pain in right side of abdomen, left side of abdomen and right upper back today. No further flatus or BM. He has not decided on surgery but is leaning towards surgery on Tuesday. Objective Exam Vital Signs Date Time Temp Pulse Resp B/P (MAP) Pulse Ox O2 Delivery O2 Flow Rate FiO2 11/29/20 09:38 92 Nasal Cannula 5.00 11/29/20 08:00 36.3 75 16 160/87 (111) 91 Nasal Cannula 5.00 11/29/20 07:00 72 11/29/20 04:33 36.0 87 20 146/89 (108) 91 Nasal Cannula 5.00 11/29/20 01:54 91 Nasal Cannula 5.00 11/29/20 01:00 70 11/29/20 00:12 36.2 88 18 148/83 (104) 93 Nasal Cannula 5.00 11/28/20 20:45 Nasal Cannula 5.00 11/28/20 20:00 35.5 86 18 153/86 (108) 91 Nasal Cannula 5.00 11/28/20 19:04 90 Nasal Cannula 5.00 11/28/20 19:00 78 11/28/20 15:56 35.8 90 22 143/93 (110) 91 Nasal Cannula 5.00 11/28/20 15:06 91 Nasal Cannula 5.00 11/28/20 13:54 79 11/28/20 11:48 36.0 94 20 156/86 (109) 94 Nasal Cannula 5.00 I & O 11/29/20 07:00 Intake Total 1220 ml Output Total 1525 ml Balance -305 ml Capillary Refill : Less Than 3 Seconds General Appearance: Mild Distress Respiratory: Lungs Clear Cardiovascular: Regular Rate, Rhythm Gastrointestinal: abnormal bowel sounds, distended, other (ostomy bag over fistula with fecal material) Extremity: Non Tender, No Calf Tenderness, No Pedal Edema Neurologic/Psychiatric: Alert, Oriented x3 Results Lab Laboratory Tests 11/28/20 11:54: Glucometer 147H 11/28/20 18:07: Glucometer 150H 11/29/20 00:23: Glucometer 144H 11/29/20 06:10: Sodium Level 138, Potassium Level 3.4L, Chloride Level 105, Carbon Dioxide Level 21, Anion Gap 12, Blood Urea Nitrogen 12, Creatinine 0.51L, Estimat Glomerular Filtration Rate > 60, BUN/Creatinine Ratio 24, Glucose Level 114H, Calcium Level 7.1L, Corrected Calcium 8.6, Phosphorus Level 2.0L, Magnesium Level 1.6, Total Bilirubin 0.3, Aspartate Amino Transf (AST/SGOT) 25, Alanine Aminotransferase (ALT/SGPT) 18, Alkaline Phosphatase 66, Total Protein 5.2L, Albumin 2.1L Microbiology 11/22/20 Blood Culture - Preliminary, Resulted Staph, Coag Neg (REFRIGERATION SYSTEM INSTALLER) See Comments Assessment/Plan Assessment/Plan Assess & Plan/Chief Complaint 1. SBO--NG tube in place, no further flatus or BM, increase fentanyl patch for pain control and using morphine prn 2. HTN--on IV metoprolol 3. Right Colon Adenocarcinoma--Dr. Calvert discussed options/prognosis with patient and yesterday 4. Hx. of CAD--stable 5. Wound Dehiscence with Fecal drainage--enterocutaneous fistula--TPN started, discussed surgery options vs hospice, patient trying to decide but leaning towards surgery 6. Acute Respiratory Distress--on oxygen 7. Bilateral Pneumonia--started maxipime and repeat CXR stable YENI RUVALCABA DO November 29, 2020 11:39
[2020-11-29] MEDS: fentaNYL PATCH 75 MCG (DURAGESIC) TD SCH (11:55)
[2020-11-29] MEDS: LACTATED RINGERS 1,000 ML IV SCH (12:04)
[2020-11-29] MEDS: [UNRECOGNIZED DRUG - OTHER] IV SCH ×11 (17:50)
[2020-11-29] MEDS: SODIUM CHLORIDE IV SCH ×11 (17:50)
[2020-11-29] MEDS: SODIUM ACETATE IV SCH ×11 (17:50)
[2020-11-29] MEDS: PANTOPRAZOLE 40 MG (PROTONIX) VIAL IV SCH (20:43)
[2020-11-30] MEDS: LACTATED RINGERS 1,000 ML IV SCH ×2 (01:48→16:26)
[2020-11-30] MEDS: RT-ALBUTEROL INHALER HFA (VENTOLIN HFA) 18 GM IH SCH ×4 (02:08→22:30)
[2020-11-30 03:54] VITALS: BP 143/78
[2020-11-30] MEDS: morphine INJ 4 MG/ML 1 ML (VIAL/SYRINGE) IV PRN ×7 (04:04→23:05)
[2020-11-30] MEDS: meTOprolol 5 MG/5 ML (LOPRESSOR) VIAL IV SCH ×4 (05:41→23:04)
[2020-11-30 05:46] LABS: ALBUMIN 2.4 GM/DL (3.2-4.5); CHLORIDE 101 MMOL/L (98-107); POTASSIUM 4.4 MMOL/L (3.6-5.0); SODIUM 137 MMOL/L (135-145)
[2020-11-30 05:47] LABS: CALCIUM 8.3 MG/DL (8.5-10.1)
[2020-11-30 05:48] LABS: GLUCOSE 123 MG/DL (70-105)
[2020-11-30 05:49] LABS: TOTAL PROTEIN 6.3 GM/DL (6.4-8.2)
[2020-11-30 05:50] LABS: BILIRUBIN,TOTAL 0.4 MG/DL (0.1-1.0); CARBON DIOXIDE 23 MMOL/L (21-32)
[2020-11-30 05:52] LABS: ALKALINE PHOSPHATASE 85 U/L (40-136); GFR ESTIMATED > 60; PHOSPHORUS 3.3 MG/DL (2.3-4.7)
[2020-11-30 05:53] LABS: BUN/CREATININE RATIO 25
[2020-11-30 05:55] LABS: ALANINE AMINOTRANSFERASE 24 U/L (0-55)
[2020-11-30] MEDS: UMECLIDINIUM BROMIDE (INCRUSE ELLIPTA) 7'S IH SCH (07:40)
[2020-11-30 07:54] VITALS: BP 163/82
--- NOTE | 2020-11-30 08:59 | Progress Note ---
Subjective Date Seen by a Provider: November 30, 2020 Time Seen by a Provider: 08:54 Subjective/Events-last exam Fwup SBO, right colon adenocarcinoma, HTN, Hx of CAD, enterocutaneous fistula, acute respiratory distress, bilateral pneumonia. Pain is better controlled but is more groggy. Had to be put on oxygen mask and increased to 7 liters overnight. No further flatus or BM. Objective Exam Vital Signs Date Time Temp Pulse Resp B/P (MAP) Pulse Ox O2 Delivery O2 Flow Rate FiO2 11/30/20 07:54 36.2 85 18 163/82 (109) 90 OxyMask 7.00 11/30/20 07:00 75 11/30/20 03:54 36.2 81 16 143/78 (99) 94 OxyMask 7.00 11/30/20 02:08 93 OxyMask 8.00 11/30/20 00:34 75 11/29/20 23:19 36.4 79 22 153/81 (105) 94 OxyMask 7.00 11/29/20 21:55 92 OxyMask 8.00 11/29/20 20:30 90 Nasal Cannula 5.00 11/29/20 20:20 Nasal Cannula 5.00 11/29/20 20:00 35.9 95 24 164/86 (112) 90 Nasal Cannula 5.00 11/29/20 19:00 75 11/29/20 16:00 35.6 86 20 152/85 (107) 92 Nasal Cannula 5.00 11/29/20 14:59 92 Nasal Cannula 5.00 11/29/20 12:43 81 11/29/20 12:00 36.1 79 16 145/81 (102) 91 Nasal Cannula 5.00 11/29/20 09:38 92 Nasal Cannula 5.00 I & O 11/30/20 07:00 Intake Total 4131 ml Output Total 1760 ml Balance 2371 ml Capillary Refill : Less Than 3 Seconds General Appearance: Mild Distress Respiratory: Crackles, Decreased Breath Sounds Cardiovascular: Regular Rate, Rhythm, Systolic Murmur Gastrointestinal: abnormal bowel sounds, distended, other (ostomy bag in place over fistula with fecal material in bag) Extremity: Non Tender, No Calf Tenderness, No Pedal Edema Neurologic/Psychiatric: Alert, Oriented x3 Results Lab Laboratory Tests 11/30/20 05:30: Sodium Level 137, Potassium Level 4.4, Chloride Level 101, Carbon Dioxide Level 23, Anion Gap 13, Blood Urea Nitrogen 15, Creatinine 0.60, Estimat Glomerular Filtration Rate > 60, BUN/Creatinine Ratio 25, Glucose Level 123H, Calcium Level 8.3L, Corrected Calcium 9.6, Phosphorus Level 3.3, Magnesium Level 2.0, Total Bilirubin 0.4, Aspartate Amino Transf (AST/SGOT) 33, Alanine Aminotransferase (ALT/SGPT) 24, Alkaline Phosphatase 85, Total Protein 6.3L, Albumin 2.4L Microbiology 11/22/20 Blood Culture - Preliminary, Resulted Ben, Caridadg Neg (CRITICAL CARE PHYSICIAN) See Comments Assessment/Plan Assessment/Plan Assess & Plan/Chief Complaint 1. SBO--NG tube in place, no further flatus or BM, increased fentanyl patch for pain control and has helped but is more groggy, going to check CT of chest today so will repeat abdomen/pelvis as well 2. HTN--on IV metoprolol 3. Right Colon Adenocarcinoma--Dr. Calvert discussed options/prognosis with patient and Tuesday 4. Hx. of CAD--stable 5. Wound Dehiscence with Fecal drainage--enterocutaneous fistula--TPN started, discussed surgery options vs hospice, patient trying to decide but leaning towards surgery 6. Acute Respiratory Distress--on oxygen via mask at 7L now, check CT scan of chest 7. Bilateral Pneumonia--on maxipime, will check CT of chest YENI RUVALCABA DO November 30, 2020 08:59
[2020-11-30] MEDS: ENOXAPARIN 40 MG/0.4 ML (LOVENOX) SYR SC SCH (09:37)
[2020-11-30] MEDS: PANTOPRAZOLE 40 MG (PROTONIX) VIAL IV SCH ×2 (09:37→20:11)
[2020-11-30] MEDS: CEFEPIME INJECTION 2,000 MG in WATER (STERILE) FOR INJECTION 20 ML IV SCH ×2 (09:37→20:11)
--- NOTE | 2020-11-30 09:55 | Diagnostic Imaging Report ---
PROCEDURE: CT chest, abdomen, and pelvis without contrast. TECHNIQUE: Multiple contiguous axial images were obtained through the chest, abdomen, and pelvis without the use of intravenous contrast. Auto Exposure Controls were utilized during the CT exam to meet ALARA standards for radiation dose reduction. INDICATION: History of respiratory failure. Shortness of breath. COVID infection in March 2020. COMPARISON: 11/25/2020. 11/23/2020. CT chest: The heart size is within normal limits. Post-CABG changes noted. No pericardial effusion is present. There is calcified aortic and coronary atherosclerotic plaque without aneurysm. There is no mediastinal, hilar, or axillary lymphadenopathy. Enteric tube is in place. A right port is visualized, the tip in the low SVC. Bilateral moderate pleural effusions are seen. Centrilobular emphysema is visualized, greatest in the apices. Hazy opacities are visualized in the mid and upper lungs with consolidative bibasilar atelectasis present. No central endobronchial obstructing lesions. No acute osseous abnormalities. CT abdomen and pelvis: Area of hypoattenuation is seen along the dome of the right hepatic lobe measuring 5.8 x 4.7 cm and 7.8 cm craniocaudal, decreased in size since the prior exam. There is a rim of increased attenuation surrounding this area. This is superimposed on hepatic steatosis. The gallbladder is unremarkable. A small amount of free fluid is seen in the upper abdomen. There is residual contrast noted within the abdomen from the prior small bowel study from 11/23/2020. The spleen, pancreas, adrenal glands, and kidneys have a normal appearance. Mildly prominent mesenteric lymph nodes are noted throughout the abdomen and pelvis. There has been interval decrease in fluid-filled distended loops of small bowel throughout the abdomen and pelvis. No evidence of bowel obstruction. No free air is present. No acute osseous abnormalities are visualized in the abdomen and pelvis. There is calcified aortic atherosclerotic plaque. Ureters and bladder are grossly normal. There is no free air, loculated collection, or adenopathy in the pelvis. IMPRESSION: 1. Increasing bilateral moderate pleural effusions with increased bibasilar atelectasis. Hazy opacities are noted in the mid and upper lungs which may represent residual inflammatory or infectious process. These findings are superimposed on centrilobular emphysema. 2. Interval decrease in size in the likely subcapsular abscess along the dome of the right hepatic lobe. 3. Interval decrease in fluid-filled distended loops of small bowel in the abdomen and pelvis. Contrast remains within the peritoneal cavity from the small bowel study from 11/23/2020 with additional small amount of free fluid. No new abscess is seen. Dictated by: Dictated on workstation # [id number]
--- NOTE | 2020-11-30 10:28 | Progress Note ---
Subjective Date Seen by a Provider: November 30, 2020 Time Seen by a Provider: 09:50 Subjective/Events-last exam Patient seen with Dr. Dailey. Patient reports more right sided chest pain, but still some abdominal discomfort. Having BMs. No N/V. Had CT chest/abd/pelvis this AM. Objective Exam Vital Signs Date Time Temp Pulse Resp B/P (MAP) Pulse Ox O2 Delivery O2 Flow Rate FiO2 11/30/20 07:54 36.2 85 18 163/82 (109) 90 OxyMask 7.00 11/30/20 07:00 75 11/30/20 03:54 36.2 81 16 143/78 (99) 94 OxyMask 7.00 11/30/20 02:08 93 OxyMask 8.00 11/30/20 00:34 75 11/29/20 23:19 36.4 79 22 153/81 (105) 94 OxyMask 7.00 11/29/20 21:55 92 OxyMask 8.00 11/29/20 20:30 90 Nasal Cannula 5.00 11/29/20 20:20 Nasal Cannula 5.00 11/29/20 20:00 35.9 95 24 164/86 (112) 90 Nasal Cannula 5.00 11/29/20 19:00 75 11/29/20 16:00 35.6 86 20 152/85 (107) 92 Nasal Cannula 5.00 11/29/20 14:59 92 Nasal Cannula 5.00 11/29/20 12:43 81 11/29/20 12:00 36.1 79 16 145/81 (102) 91 Nasal Cannula 5.00 I & O 11/30/20 07:00 Intake Total 4131 ml Output Total 1760 ml Balance 2371 ml Capillary Refill : Less Than 3 Seconds General Appearance: WD/WN, Mild Distress Neck: Normal Inspection, Supple Respiratory: Crackles, Decreased Breath Sounds Cardiovascular: Regular Rate, Rhythm, No Edema Gastrointestinal: normal bowel sounds, distended, tenderness, other (Upper abdominal fistula with ostomy bag in place for drainage.) Extremity: Normal Inspection, Non Tender Neurologic/Psychiatric: Alert, Oriented x3 Skin: Normal Color, Warm/Dry Results Lab Laboratory Tests 11/30/20 05:30: Sodium Level 137, Potassium Level 4.4, Chloride Level 101, Carbon Dioxide Level 23, Anion Gap 13, Blood Urea Nitrogen 15, Creatinine 0.60, Estimat Glomerular Filtration Rate > 60, BUN/Creatinine Ratio 25, Glucose Level 123H, Calcium Level 8.3L, Corrected Calcium 9.6, Phosphorus Level 3.3, Magnesium Level 2.0, Total Bilirubin 0.4, Aspartate Amino Transf (AST/SGOT) 33, Alanine Aminotransferase (ALT/SGPT) 24, Alkaline Phosphatase 85, Total Protein 6.3L, Albumin 2.4L Microbiology 11/22/20 Blood Culture - Preliminary, Resulted Ben, Efra Neg (TUMBLER OPERATOR) See Comments Assessment/Plan Assessment/Plan Assess & Plan/Chief Complaint partial small bowel obstruction contrast is making his way into the colon. Enterocutaneous fistula developed and visualized by CT scan Metastatic colon cancer with peritoneal carcinomatosis Pneumonia - medical management VSS Patient considering options surgical vs hospice Continue with TPN, NGT, and colostomy bag for stool from fistula Pain meds CT showed decrease in size of right upper abdominal abscess YESENIA EASON BOTTLED BEVERAGE INSPECTOR November 30, 2020 10:28
[2020-11-30 11:52] VITALS: BP 133/78
[2020-11-30 16:00] VITALS: BP 137/78
[2020-11-30 20:00] VITALS: BP 147/75
[2020-11-30] MEDS: SODIUM CHLORIDE IV SCH ×11 (20:12)
[2020-11-30] MEDS: [UNRECOGNIZED DRUG - OTHER] IV SCH ×11 (20:12)
[2020-11-30] MEDS: SODIUM ACETATE IV SCH ×11 (20:12)
[2020-11-30 23:02] VITALS: BP 144/81
[2020-12-01] MEDS: morphine INJ 4 MG/ML 1 ML (VIAL/SYRINGE) IV PRN ×6 (01:30→20:46)
[2020-12-01] MEDS: RT-ALBUTEROL INHALER HFA (VENTOLIN HFA) 18 GM IH SCH ×4 (02:33→21:13)
[2020-12-01 04:28] VITALS: BP 144/80
[2020-12-01 04:47] LABS: HEMOGLOBIN 9.1 g/dL (13.3-17.7); WHITE BLOOD COUNT 12.6 10^3/uL (4.3-11.0)
[2020-12-01 04:59] LABS: ALBUMIN 2.4 GM/DL (3.2-4.5)
[2020-12-01 05:00] LABS: CHLORIDE 101 MMOL/L (98-107); POTASSIUM 4.6 MMOL/L (3.6-5.0); SODIUM 136 MMOL/L (135-145)
[2020-12-01 05:01] LABS: CALCIUM 8.3 MG/DL (8.5-10.1)
[2020-12-01 05:02] LABS: GLUCOSE 124 MG/DL (70-105); TOTAL PROTEIN 6.3 GM/DL (6.4-8.2)
[2020-12-01 05:03] LABS: CARBON DIOXIDE 23 MMOL/L (21-32)
[2020-12-01 05:04] LABS: BILIRUBIN,TOTAL 0.5 MG/DL (0.1-1.0)
[2020-12-01 05:05] LABS: ALKALINE PHOSPHATASE 119 U/L (40-136); PHOSPHORUS 3.1 MG/DL (2.3-4.7)
[2020-12-01 05:06] LABS: CREATININE SERUM 0.61 MG/DL (0.60-1.30); GFR ESTIMATED > 60
[2020-12-01 05:07] LABS: BUN/CREATININE RATIO 30
[2020-12-01 05:09] LABS: ALANINE AMINOTRANSFERASE 36 U/L (0-55); MAGNESIUM 2.1 MG/DL (1.6-2.4)
[2020-12-01] MEDS: meTOprolol 5 MG/5 ML (LOPRESSOR) VIAL IV SCH ×3 (05:35→17:14)
[2020-12-01] MEDS: LACTATED RINGERS 1,000 ML IV SCH ×2 (05:36→20:08)
[2020-12-01 07:51] VITALS: BP 140/78
[2020-12-01] MEDS: CEFEPIME INJECTION 2,000 MG in WATER (STERILE) FOR INJECTION 20 ML IV SCH ×2 (09:23→20:46)
[2020-12-01] MEDS: ENOXAPARIN 40 MG/0.4 ML (LOVENOX) SYR SC SCH (09:23)
[2020-12-01] MEDS: PANTOPRAZOLE 40 MG (PROTONIX) VIAL IV SCH ×2 (09:23→20:46)
[2020-12-01] MEDS: ONDANSETRON 4 MG/2 ML (SDV) Z0FRAN IV PRN (09:37)
[2020-12-01 12:05] VITALS: BP 140/71
[2020-12-01] MEDS ORDERED: FUROSEMIDE 40 MG/4 ML INJ (LASIX) IVP NR (13:00)
--- NOTE | 2020-12-01 13:07 | Progress Note ---
Subjective Date Seen by a Provider: December 01, 2020 Time Seen by a Provider: 13:04 Subjective/Events-last exam Fwup SBO, right colon adenocarcinoma, HTN, Hx of CAD, enterocutaneous fistula, acute respiratory distress, bilateral pneumonia. No flatus or BM. Still on oxygen via mask. Objective Exam Vital Signs Date Time Temp Pulse Resp B/P (MAP) Pulse Ox O2 Delivery O2 Flow Rate FiO2 12/01/20 12:05 36.8 86 20 140/71 (94) 94 OxyMask 7.00 12/01/20 09:55 90 OxyMask 8.00 12/01/20 08:20 OxyMask 7.00 12/01/20 07:51 36.5 78 22 140/78 (98) 90 OxyMask 7.00 12/01/20 06:46 75 12/01/20 04:28 36.6 82 20 144/80 (101) 91 OxyMask 7.00 12/01/20 02:34 93 OxyMask 8.00 12/01/20 01:00 76 11/30/20 23:02 36.0 85 22 144/81 (102) 92 OxyMask 7.00 11/30/20 22:31 94 OxyMask 8.00 11/30/20 20:20 OxyMask 7.00 11/30/20 20:00 35.9 79 18 147/75 (99) 92 OxyMask 7.00 11/30/20 19:00 72 11/30/20 16:00 35.7 81 18 137/78 (97) 96 OxyMask 7.00 11/30/20 14:42 91 OxyMask 7.00 I & O 12/01/20 07:00 Intake Total 0 ml Output Total 1245 ml Balance -1245 ml Capillary Refill : Less Than 3 Seconds General Appearance: Mild Distress Respiratory: Lungs Clear, Decreased Breath Sounds Cardiovascular: Regular Rate, Rhythm Gastrointestinal: abnormal bowel sounds, distended, other (ostomy bag over fistula with fecal material) Extremity: Non Tender, No Calf Tenderness, No Pedal Edema Neurologic/Psychiatric: Alert, Oriented x3 Results Lab Laboratory Tests 12/01/20 04:40: White Blood Count 12.6H, Red Blood Count 3.89L, Hemoglobin 9.1L, Hematocrit 30L, Mean Corpuscular Volume 78L, Mean Corpuscular Hemoglobin 23L, Mean Corpuscular Hemoglobin Concent 30L, Red Cell Distribution Width 15.9H, Platelet Count 260, Mean Platelet Volume 9.0, Sodium Level 136, Potassium Level 4.6, Chloride Level 101, Carbon Dioxide Level 23, Anion Gap 12, Blood Urea Nitrogen 18, Creatinine 0.61, Estimat Glomerular Filtration Rate > 60, BUN/Creatinine Ratio 30, Glucose Level 124H, Calcium Level 8.3L, Corrected Calcium 9.6, Phosphorus Level 3.1, Magnesium Level 2.1, Total Bilirubin 0.5, Aspartate Amino Transf (AST/SGOT) 51H, Alanine Aminotransferase (ALT/SGPT) 36, Alkaline Phosphatase 119, Total Protein 6.3L, Albumin 2.4L Microbiology 11/22/20 Blood Culture - Final, Complete Staph, Coag Neg (MANAGER OF HOUSEKEEPING) See Comments Assessment/Plan Assessment/Plan Assess & Plan/Chief Complaint 1. SBO--NG tube in place, no further flatus or BM, increased fentanyl patch for pain control and has helped, discussed home with hospice vs surgery again--wants to discuss with Dr. Ramos 2. HTN--on IV metoprolol 3. Right Colon Adenocarcinoma--Dr. Calvert discussed options/prognosis with patient and Tuesday 4. Hx. of CAD--stable 5. Wound Dehiscence with Fecal drainage--enterocutaneous fistula--TPN started, discussed surgery options vs hospice, patient trying to decide but leaning towards surgery 6. Acute Respiratory Distress with bilateral pleural effusions--on oxygen via mask at 7L now, continue IS, add lasix IV 7. Bilateral Pneumonia--on YENI Michael DO December 01, 2020 13:07
--- NOTE | 2020-12-01 14:55 | Progress Note - Surgery ---
Subjective Time Seen by a Provider: 13:21 Subjective/Events-last exam Pt seen and examined, states he feels ok today. Denies pain, still having BM's. Review of Systems General: Fatigue, Malaise Pulmonary: No Dyspnea, No Cough Cardiovascular: No: Chest Pain, Palpitations Gastrointestinal: Abdominal Pain; No: Nausea, Vomiting Genitourinary: No Dysuria, No Frequency Objective Exam Vital Signs Date Time Temp Pulse Resp B/P (MAP) Pulse Ox O2 Delivery O2 Flow Rate FiO2 12/01/20 12:48 80 12/01/20 12:05 36.8 86 20 140/71 (94) 94 OxyMask 7.00 12/01/20 09:55 90 OxyMask 8.00 12/01/20 08:20 OxyMask 7.00 12/01/20 07:51 36.5 78 22 140/78 (98) 90 OxyMask 7.00 12/01/20 06:46 75 12/01/20 04:28 36.6 82 20 144/80 (101) 91 OxyMask 7.00 12/01/20 02:34 93 OxyMask 8.00 12/01/20 01:00 76 11/30/20 23:02 36.0 85 22 144/81 (102) 92 OxyMask 7.00 11/30/20 22:31 94 OxyMask 8.00 11/30/20 20:20 OxyMask 7.00 11/30/20 20:00 35.9 79 18 147/75 (99) 92 OxyMask 7.00 11/30/20 19:00 72 11/30/20 16:00 35.7 81 18 137/78 (97) 96 OxyMask 7.00 I & O 12/01/20 06:59 Intake Total 0 ml Output Total 1245 ml Balance -1245 ml Capillary Refill : Less Than 3 Seconds General Appearance: No Apparent Distress, Chronically ill HEENT: PERRL/EOMI, Other (NGT in place) Respiratory: Lungs Clear, Decreased Breath Sounds Cardiovascular: Regular Rate, Rhythm, No Murmur Gastrointestinal: other (ostomy bag over fistula with fecal material) Neurologic/Psychiatric: Alert, Oriented x3 Skin: Normal Color, Warm/Dry Results Lab Laboratory Tests 12/01/20 04:40: White Blood Count 12.6H, Red Blood Count 3.89L, Hemoglobin 9.1L, Hematocrit 30L, Mean Corpuscular Volume 78L, Mean Corpuscular Hemoglobin 23L, Mean Corpuscular Hemoglobin Concent 30L, Red Cell Distribution Width 15.9H, Platelet Count 260, Mean Platelet Volume 9.0, Sodium Level 136, Potassium Level 4.6, Chloride Level 101, Carbon Dioxide Level 23, Anion Gap 12, Blood Urea Nitrogen 18, Creatinine 0.61, Estimat Glomerular Filtration Rate > 60, BUN/Creatinine Ratio 30, Glucose Level 124H, Calcium Level 8.3L, Corrected Calcium 9.6, Phosphorus Level 3.1, Magnesium Level 2.1, Total Bilirubin 0.5, Aspartate Amino Transf (AST/SGOT) 51H, Alanine Aminotransferase (ALT/SGPT) 36, Alkaline Phosphatase 119, Total Protein 6.3L, Albumin 2.4L Microbiology 11/22/20 Blood Culture - Final, Complete Staph, Coag Neg (DISPENSING OPTICIAN APPRENTICE) See Comments Assessment/Plan Assessment/Plan Assessment/Plan 1. SBO--NG tube in place, has had a few BM 2. HTN--on IV metoprolol 3. Right Colon Adenocarcinoma 4. Hx. of CAD--stable 5. Enterocutaneous fistula--TPN started, discussed surgery options vs hospice, patient and his want to do surgery Pt stated he knows that we may just open up abdomen and have to close it back up, but he still wants to give surgery a try. We discussed risks and complications not limited to pain, bleeding, infection, damage to intestine and even . All questions answered to his and his 's satisfaction. BEBE MARTIN DO December 01, 2020 14:55
[2020-12-01 15:13] VITALS: BP 120/62
[2020-12-01] MEDS: UMECLIDINIUM BROMIDE (INCRUSE ELLIPTA) 7'S IH SCH (15:49)
[2020-12-01] MEDS ORDERED: SODIUM CHLORIDE IV SCH ×11 (17:00)
[2020-12-01] MEDS ORDERED: [UNRECOGNIZED DRUG - OTHER] IV SCH ×11 (17:00)
[2020-12-01] MEDS ORDERED: SODIUM ACETATE IV SCH ×11 (17:00)
[2020-12-01] MEDS: SODIUM ACETATE IV SCH ×11 (17:14)
[2020-12-01] MEDS: SODIUM CHLORIDE IV SCH ×11 (17:14)
[2020-12-01] MEDS: [UNRECOGNIZED DRUG - OTHER] IV SCH ×11 (17:14)
[2020-12-01 19:08] VITALS: BP 133/67
[2020-12-01 23:53] VITALS: BP 133/66
[2020-12-02] VITALS (8 sets, daily range): BP systolic 119–169; BP diastolic 58–84
[2020-12-02] MEDS: meTOprolol 5 MG/5 ML (LOPRESSOR) VIAL IV SCH ×5 (00:23→23:58)
[2020-12-02] MEDS: RT-ALBUTEROL INHALER HFA (VENTOLIN HFA) 18 GM IH SCH ×4 (02:35→21:13)
[2020-12-02 06:08] LABS: HEMOGLOBIN 9.1 g/dL (13.3-17.7); MEAN PLATELET VOLUME 9.8 fL (9.0-12.2); WHITE BLOOD COUNT 13.9 10^3/uL (4.3-11.0)
[2020-12-02 06:27] LABS: CHLORIDE 101 MMOL/L (98-107); POTASSIUM 4.5 MMOL/L (3.6-5.0); SODIUM 137 MMOL/L (135-145)
[2020-12-02 06:28] LABS: CALCIUM 8.4 MG/DL (8.5-10.1)
[2020-12-02 06:29] LABS: GLUCOSE 132 MG/DL (70-105); TOTAL PROTEIN 6.4 GM/DL (6.4-8.2)
[2020-12-02 06:30] LABS: CARBON DIOXIDE 26 MMOL/L (21-32)
[2020-12-02 06:31] LABS: BILIRUBIN,TOTAL 0.5 MG/DL (0.1-1.0)
[2020-12-02 06:32] LABS: ALKALINE PHOSPHATASE 139 U/L (40-136); PHOSPHORUS 3.5 MG/DL (2.3-4.7)
[2020-12-02 06:33] LABS: CREATININE SERUM 0.65 MG/DL (0.60-1.30); GFR ESTIMATED > 60
[2020-12-02 06:34] LABS: BUN/CREATININE RATIO 35
[2020-12-02 06:36] LABS: ALANINE AMINOTRANSFERASE 46 U/L (0-55); MAGNESIUM 2.2 MG/DL (1.6-2.4)
[2020-12-02 07:14] LABS: ALBUMIN 2.3 GM/DL (3.2-4.5)
[2020-12-02] MEDS: FUROSEMIDE 40 MG/4 ML INJ (LASIX) IVP SCH (07:48)
[2020-12-02] MEDS: UMECLIDINIUM BROMIDE (INCRUSE ELLIPTA) 7'S IH SCH (07:48)
[2020-12-02] MEDS: ENOXAPARIN 40 MG/0.4 ML (LOVENOX) SYR SC SCH (07:48)
[2020-12-02] MEDS: CEFEPIME INJECTION 2,000 MG in WATER (STERILE) FOR INJECTION 20 ML IV SCH ×2 (07:48→20:47)
[2020-12-02] MEDS: PANTOPRAZOLE 40 MG (PROTONIX) VIAL IV SCH ×2 (07:48→20:47)
[2020-12-02] MEDS: fentaNYL PATCH 75 MCG (DURAGESIC) TD SCH (11:41)
[2020-12-02] MEDS: morphine INJ 4 MG/ML 1 ML (VIAL/SYRINGE) IV PRN ×4 (12:24→21:11)
--- NOTE | 2020-12-02 12:56 | Progress Note ---
Subjective Date Seen by a Provider: December 02, 2020 Time Seen by a Provider: 12:53 Subjective/Events-last exam Fwup SBO, right colon adenocarcinoma, HTN, Hx of CAD, enterocutaneous fistula, acute respiratory distress, bilateral pneumonia. No flatus or BM. States pain not any better but nursing states not requiring prn Morphine as often and appears much more comfortable. Objective Exam Vital Signs Date Time Temp Pulse Resp B/P (MAP) Pulse Ox O2 Delivery O2 Flow Rate FiO2 12/02/20 11:41 83 119/58 (78) 12/02/20 11:34 36.8 83 20 120/65 (83) 93 OxyMask 5.00 12/02/20 09:25 97 OxyMask 8.00 12/02/20 08:00 OxyMask 8.00 12/02/20 07:17 36.6 70 18 122/72 (89) 96 OxyMask 8.00 12/02/20 07:02 70 12/02/20 04:00 36.4 82 20 127/64 (85) 93 OxyMask 8.00 12/02/20 02:40 91 OxyMask 8.00 12/02/20 01:00 71 12/01/20 23:53 36.8 85 20 133/66 (88) 94 OxyMask 8.00 12/01/20 21:13 92 OxyMask 8.00 12/01/20 20:46 OxyMask 7.00 12/01/20 19:08 36.3 78 20 133/67 (89) 93 OxyMask 8.00 12/01/20 19:00 74 12/01/20 15:50 90 OxyMask 8.00 12/01/20 15:13 36.4 76 18 120/62 (81) 95 OxyMask 8.00 I & O 12/02/20 07:00 Intake Total 0 ml Output Total 3035 ml Balance -3035 ml Capillary Refill : Less Than 3 Seconds General Appearance: Mild Distress Respiratory: Lungs Clear, Decreased Breath Sounds Cardiovascular: Regular Rate, Rhythm, Systolic Murmur Gastrointestinal: abnormal bowel sounds, distended, other (Ostomy bag over fistula with fecal material) Extremity: Non Tender, No Calf Tenderness, No Pedal Edema Neurologic/Psychiatric: Alert, Oriented x3 Results Lab Laboratory Tests 12/02/20 05:36: Glucometer 148H 12/02/20 05:50: White Blood Count 13.9H, Red Blood Count 3.87L, Hemoglobin 9.1L, Hematocrit 30L, Mean Corpuscular Volume 78L, Mean Corpuscular Hemoglobin 24L, Mean Corpuscular Hemoglobin Concent 30L, Red Cell Distribution Width 15.9H, Platelet Count 274, Mean Platelet Volume 9.8, Sodium Level 137, Potassium Level 4.5, Chloride Level 101, Carbon Dioxide Level 26, Anion Gap 10, Blood Urea Nitrogen 23H, Creatinine 0.65, Estimat Glomerular Filtration Rate > 60, BUN/Creatinine Ratio 35, Glucose Level 132H, Calcium Level 8.4L, Corrected Calcium 9.8, Phosphorus Level 3.5, Magnesium Level 2.2, Total Bilirubin 0.5, Aspartate Amino Transf (AST/SGOT) 56H, Alanine Aminotransferase (ALT/SGPT) 46, Alkaline Phosphatase 139H, Total Protein 6.4, Albumin 2.3L Microbiology 11/22/20 Blood Culture - Final, Complete Staph, Coag Neg (PLATING AND POINT ASSEMBLY SUPERVISOR) See Comments Assessment/Plan Assessment/Plan Assess & Plan/Chief Complaint 1. SBO--NG tube in place, no further flatus or BM, increased fentanyl patch for pain control and has helped, discussed home with hospice vs surgery again--patient has opted for surgery 2. HTN--on IV metoprolol 3. Right Colon Adenocarcinoma--Dr. Calvert discussed options/prognosis with patient and Tuesday 4. Hx. of CAD--stable 5. Wound Dehiscence with Fecal drainage--enterocutaneous fistula--TPN started, discussed surgery options vs hospice, awaiting surgery 6. Acute Respiratory Distress with bilateral pleural effusions--on oxygen via mask at 7L now, continue IS 7. Bilateral Pneumonia--on YENI Michael DO December 02, 2020 12:56
[2020-12-02] MEDS ORDERED: LORazepam INJ 2 MG/ML (ATIVAN) VIAL IVP NR (17:00)
[2020-12-02] MEDS ORDERED: LORazepam INJ 2 MG/ML (ATIVAN) VIAL IVP PRN (17:00)
[2020-12-02] MEDS: [UNRECOGNIZED DRUG - OTHER] IV SCH ×11 (17:45)
[2020-12-02] MEDS: SODIUM ACETATE IV SCH ×11 (17:45)
[2020-12-02] MEDS: SODIUM CHLORIDE IV SCH ×11 (17:45)
--- NOTE | 2020-12-02 18:29 | Progress Note - Surgery ---
Subjective Time Seen by a Provider: 12:46 Subjective/Events-last exam Pt seen and examined, states only occasional abdominal pain. Describes pain as minimal. He asked me to sit down and go over options again and give my opinion. Review of Systems General: Fatigue, Malaise Pulmonary: No Dyspnea, No Cough Cardiovascular: No: Chest Pain, Palpitations Gastrointestinal: Abdominal Pain; No: Nausea, Vomiting Objective Exam Vital Signs Date Time Temp Pulse Resp B/P (MAP) Pulse Ox O2 Delivery O2 Flow Rate FiO2 12/02/20 17:49 80 127/77 (94) 12/02/20 15:18 36.5 76 16 127/67 (87) 94 OxyMask 5.00 12/02/20 14:31 93 OxyMask 6.00 12/02/20 12:52 82 12/02/20 11:41 83 119/58 (78) 12/02/20 11:34 36.8 83 20 120/65 (83) 93 OxyMask 5.00 12/02/20 09:25 97 OxyMask 8.00 12/02/20 08:00 OxyMask 8.00 12/02/20 07:17 36.6 70 18 122/72 (89) 96 OxyMask 8.00 12/02/20 07:02 70 12/02/20 04:00 36.4 82 20 127/64 (85) 93 OxyMask 8.00 12/02/20 02:40 91 OxyMask 8.00 12/02/20 01:00 71 12/01/20 23:53 36.8 85 20 133/66 (88) 94 OxyMask 8.00 12/01/20 21:13 92 OxyMask 8.00 12/01/20 20:46 OxyMask 7.00 12/01/20 19:08 36.3 78 20 133/67 (89) 93 OxyMask 8.00 12/01/20 19:00 74 I & O 12/02/20 07:00 Intake Total 0 ml Output Total 3035 ml Balance -3035 ml Capillary Refill : Less Than 3 Seconds General Appearance: Chronically ill, Mild Distress HEENT: PERRL/EOMI, Other (NGT in place) Respiratory: Lungs Clear, Decreased Breath Sounds Cardiovascular: Regular Rate, Rhythm, Systolic Murmur Gastrointestinal: other (Ostomy bag over fistula with fecal material) Neurologic/Psychiatric: Alert, Oriented x3 Skin: Normal Color, Warm/Dry Results Lab Laboratory Tests 12/02/20 05:36: Glucometer 148H 12/02/20 05:50: White Blood Count 13.9H, Red Blood Count 3.87L, Hemoglobin 9.1L, Hematocrit 30L, Mean Corpuscular Volume 78L, Mean Corpuscular Hemoglobin 24L, Mean Corpuscular Hemoglobin Concent 30L, Red Cell Distribution Width 15.9H, Platelet Count 274, Mean Platelet Volume 9.8, Sodium Level 137, Potassium Level 4.5, Chloride Level 101, Carbon Dioxide Level 26, Anion Gap 10, Blood Urea Nitrogen 23H, Creatinine 0.65, Estimat Glomerular Filtration Rate > 60, BUN/Creatinine Ratio 35, Glucose Level 132H, Calcium Level 8.4L, Corrected Calcium 9.8, Phosphorus Level 3.5, Magnesium Level 2.2, Total Bilirubin 0.5, Aspartate Amino Transf (AST/SGOT) 56H, Alanine Aminotransferase (ALT/SGPT) 46, Alkaline Phosphatase 139H, Total Protein 6.4, Albumin 2.3L Microbiology 11/22/20 Blood Culture - Final, Complete Staph, Coag Neg (BAK[employer] PIE) See Comments Assessment/Plan Assessment/Plan Assessment/Plan Wound Dehiscence with Fecal drainage--enterocutaneous fistula--TPN started, I discussed surgery options vs hospice. I told pt that unfortunately he has disease that will never be cured and most likely won't get any better; no matter what we do. I think there is a 95% chance that if we attempt surgery; we wind up opening and closing immediately and that would be if we didn't cause any more trouble like enterotomies. I also think the best he can hope for is a diverting loop colostomy and don't think surgery will prolong his life very much. He decided he didn't want surgery and was going to talk to and family about the other options and hospice. 1. PSBO--NG tube removed today 2. HTN--on IV metoprolol 3. Right Colon Adenocarcinoma--Dr. Calvert discussed options/prognosis with patient and Tuesday 4. Hx. of CAD--stable 5. Acute Respiratory Distress with bilateral pleural effusions--on oxygen via mask at 7L BEBE MARTIN DO December 02, 2020 18:29
[2020-12-03] VITALS (9 sets, daily range): BP systolic 123–173; BP diastolic 65–86
[2020-12-03] MEDS: LACTATED RINGERS 1,000 ML IV SCH ×3 (01:58→16:15)
[2020-12-03] MEDS: RT-ALBUTEROL INHALER HFA (VENTOLIN HFA) 18 GM IH SCH ×4 (02:37→20:50)
[2020-12-03] MEDS: meTOprolol 5 MG/5 ML (LOPRESSOR) VIAL IV SCH ×4 (05:38→23:51)
[2020-12-03] MEDS: UMECLIDINIUM BROMIDE (INCRUSE ELLIPTA) 7'S IH SCH (07:13)
[2020-12-03] MEDS: FUROSEMIDE 40 MG/4 ML INJ (LASIX) IVP SCH (07:50)
[2020-12-03] MEDS: ONDANSETRON 4 MG/2 ML (SDV) Z0FRAN IV PRN (07:54)
[2020-12-03] MEDS: morphine INJ 4 MG/ML 1 ML (VIAL/SYRINGE) IV PRN ×2 (07:55→12:07)
[2020-12-03] MEDS: PANTOPRAZOLE 40 MG (PROTONIX) VIAL IV SCH ×2 (07:56→20:42)
[2020-12-03] MEDS: CEFEPIME INJECTION 2,000 MG in WATER (STERILE) FOR INJECTION 20 ML IV SCH ×2 (08:04→20:41)
[2020-12-03] MEDS: ENOXAPARIN 40 MG/0.4 ML (LOVENOX) SYR SC SCH (08:04)
[2020-12-03] MEDS: HYDROmorphone 2 MG/ML VIAL (DILAUDID) IVP PRN ×3 (10:39→19:51)
--- NOTE | 2020-12-03 12:01 | Progress Note - Surgery ---
Subjective Time Seen by a Provider: 10:14 Subjective/Events-last exam Pt seen and examined, complains of pain all over. Denies nausea or vomiting with NGT out. Has not had any more BMs. He asked when he could go home. Review of Systems General: Fatigue Pulmonary: No Dyspnea, No Cough Cardiovascular: No: Chest Pain, Palpitations Gastrointestinal: Abdominal Pain Musculoskeletal: back pain Objective Exam Vital Signs Date Time Temp Pulse Resp B/P (MAP) Pulse Ox O2 Delivery O2 Flow Rate FiO2 12/03/20 11:37 36.5 80 16 128/73 (91) 97 OxyMask 5.00 12/03/20 08:06 36.6 88 20 173/86 (115) 95 OxyMask 5.00 12/03/20 08:00 OxyMask 5.00 12/03/20 07:22 91 OxyMask 7.00 12/03/20 07:19 91 OxyMask 7.00 12/03/20 06:45 82 12/03/20 03:28 36.6 90 18 150/75 (100) 93 OxyMask 5.00 12/03/20 02:38 96 OxyMask 5.00 12/03/20 01:00 77 12/02/20 23:17 36.5 95 18 169/84 (112) 93 OxyMask 5.00 12/02/20 21:13 91 OxyMask 6.00 12/02/20 20:47 OxyMask 6.00 12/02/20 19:04 36.2 73 18 134/65 (88) 94 OxyMask 5.00 12/02/20 19:00 72 12/02/20 17:49 80 127/77 (94) 12/02/20 15:18 36.5 76 16 127/67 (87) 94 OxyMask 5.00 12/02/20 14:31 93 OxyMask 6.00 12/02/20 12:52 82 I & O 12/03/20 07:00 Intake Total 0 ml Output Total 1630 ml Balance -1630 ml Capillary Refill : Less Than 3 Seconds General Appearance: Chronically ill, Mild Distress HEENT: PERRL/EOMI, Other (NGT in place) Respiratory: Lungs Clear, Decreased Breath Sounds Cardiovascular: Regular Rate, Rhythm, Systolic Murmur Gastrointestinal: other (Ostomy bag over fistula with fecal material) Neurologic/Psychiatric: Alert, Oriented x3 Skin: Normal Color, Warm/Dry Results Lab Laboratory Tests 12/03/20 05:45: Glucometer 130H Microbiology 11/22/20 Blood Culture - Final, Complete Staph, Coag Neg (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 I will discuss with radiology, but I am concerned now that it may be a bad idea because he is not having any BMs. 1. PSBO--NG tube removed 2. HTN--on IV metoprolol 3. Right Colon Adenocarcinoma--Dr. Calvert discussed options/prognosis with patient and Tuesday 4. Hx. of CAD--stable 5. Acute Respiratory Distress with bilateral pleural effusions-- improved and only on nasal canula now BEBE MARTIN DO December 03, 2020 12:01
--- NOTE | 2020-12-03 12:29 | Progress Note ---
Subjective Date Seen by a Provider: December 03, 2020 Time Seen by a Provider: 12:25 Subjective/Events-last exam Fwup SBO, right colon adenocarcinoma, HTN, Hx of CAD, enterocutaneous fistula, acute respiratory distress, bilateral pneumonia. Patient has made a decision on no surgery and going home with hospice. He complains of pain all over. Pain increased yesterday after decision to go home on hospice and was likely related to anxiety--given lorazepam yesterday which did help. Very groggy today. Objective Exam Vital Signs Date Time Temp Pulse Resp B/P (MAP) Pulse Ox O2 Delivery O2 Flow Rate FiO2 12/03/20 11:37 36.5 80 16 128/73 (91) 97 OxyMask 5.00 12/03/20 08:06 36.6 88 20 173/86 (115) 95 OxyMask 5.00 12/03/20 08:00 OxyMask 5.00 12/03/20 07:22 91 OxyMask 7.00 12/03/20 07:19 91 OxyMask 7.00 12/03/20 06:45 82 12/03/20 03:28 36.6 90 18 150/75 (100) 93 OxyMask 5.00 12/03/20 02:38 96 OxyMask 5.00 12/03/20 01:00 77 12/02/20 23:17 36.5 95 18 169/84 (112) 93 OxyMask 5.00 12/02/20 21:13 91 OxyMask 6.00 12/02/20 20:47 OxyMask 6.00 12/02/20 19:04 36.2 73 18 134/65 (88) 94 OxyMask 5.00 12/02/20 19:00 72 12/02/20 17:49 80 127/77 (94) 12/02/20 15:18 36.5 76 16 127/67 (87) 94 OxyMask 5.00 12/02/20 14:31 93 OxyMask 6.00 12/02/20 12:52 82 I & O 12/03/20 07:00 Intake Total 0 ml Output Total 1630 ml Balance -1630 ml Capillary Refill : Less Than 3 Seconds General Appearance: Other (groggy) Respiratory: Lungs Clear, Decreased Breath Sounds Cardiovascular: Regular Rate, Rhythm Gastrointestinal: abnormal bowel sounds, distended, other (ostomy in place over fistula with fecal material in bag) Results Lab Laboratory Tests 12/03/20 05:45: Glucometer 130H Microbiology 11/22/20 Blood Culture - Final, Complete Staph, Coag Neg (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 SBO--NG tube out, no further flatus or BM, home on hospice--deciding on TPN vs PEG tube 2. HTN--on IV metoprolol 3. Right Colon Adenocarcinoma--Dr. Calvert discussed options/prognosis with patient and Tuesday 4. Hx. of CAD--stable 5. Wound Dehiscence with Fecal drainage--enterocutaneous fistula--on TPN, home on hospice 6. Acute Respiratory Distress with bilateral pleural effusions--on oxygen via mask at 7L now, continue IS 7. Bilateral Pneumonia--on maxipime but will DC abx for DC YENI RUVALCABA DO December 03, 2020 12:29
[2020-12-03] MEDS: [UNRECOGNIZED DRUG - OTHER] IV SCH ×11 (18:02)
[2020-12-03] MEDS: SODIUM ACETATE IV SCH ×11 (18:02)
[2020-12-03] MEDS: SODIUM CHLORIDE IV SCH ×11 (18:02)
[2020-12-04] MEDS: HYDROmorphone 2 MG/ML VIAL (DILAUDID) IVP PRN ×7 (01:23→16:43)
[2020-12-04] MEDS: RT-ALBUTEROL INHALER HFA (VENTOLIN HFA) 18 GM IH SCH ×3 (02:40→14:58)
[2020-12-04 04:47] VITALS: BP 127/74
[2020-12-04] MEDS: meTOprolol 5 MG/5 ML (LOPRESSOR) VIAL IV SCH ×3 (06:01→17:37)
[2020-12-04 06:30] LABS: HEMATOCRIT 27 % (40-54); HEMOGLOBIN 8.3 g/dL (13.3-17.7); MEAN CORPUSCULAR HEMOGLOBIN 24 pg (25-34); MEAN CORPUSCULAR HGB CONC 31 g/dL (32-36); MEAN CORPUSCULAR VOLUME 79 fL (80-99); MEAN PLATELET VOLUME 10.1 fL (9.0-12.2); PLATELET COUNT 317 10^3/uL (130-400); WHITE BLOOD COUNT 11.9 10^3/uL (4.3-11.0)
[2020-12-04 07:12] LABS: ALANINE AMINOTRANSFERASE 49 U/L (0-55); ALBUMIN 2.3 GM/DL (3.2-4.5); ALKALINE PHOSPHATASE 172 U/L (40-136); BILIRUBIN,TOTAL 0.5 MG/DL (0.1-1.0); BUN/CREATININE RATIO 37; CALCIUM 8.3 MG/DL (8.5-10.1); CARBON DIOXIDE 31 MMOL/L (21-32); CHLORIDE 99 MMOL/L (98-107); CREATININE SERUM 0.67 MG/DL (0.60-1.30); GFR ESTIMATED > 60; GLUCOSE 111 MG/DL (70-105); MAGNESIUM 2.9 MG/DL (1.6-2.4); PHOSPHORUS 3.5 MG/DL (2.3-4.7); POTASSIUM 4.7 MMOL/L (3.6-5.0); SODIUM 135 MMOL/L (135-145); TOTAL PROTEIN 6.6 GM/DL (6.4-8.2); TRIGLYCERIDES 100 MG/DL (<150)
[2020-12-04 07:54] VITALS: BP 124/86
[2020-12-04] MEDS: FUROSEMIDE 40 MG/4 ML INJ (LASIX) IVP SCH (07:54)
[2020-12-04] MEDS: PANTOPRAZOLE 40 MG (PROTONIX) VIAL IV SCH (07:56)
[2020-12-04] MEDS: CEFEPIME INJECTION 2,000 MG in WATER (STERILE) FOR INJECTION 20 ML IV SCH (08:01)
[2020-12-04] MEDS: ENOXAPARIN 40 MG/0.4 ML (LOVENOX) SYR SC SCH (08:03)
[2020-12-04] MEDS: UMECLIDINIUM BROMIDE (INCRUSE ELLIPTA) 7'S IH SCH (09:09)
[2020-12-04] MEDS ORDERED: ONDA8TAB13 PO (09:44)
[2020-12-04] MEDS ORDERED: LORA2ORA PO (09:44)
[2020-12-04] MEDS ORDERED: FENT1PAT60 TD (09:44)
[2020-12-04] MEDS ORDERED: HYDR2VIA2 IVP (09:44)
[2020-12-04] MEDS: LACTATED RINGERS 1,000 ML IV SCH (09:45)
--- NOTE | 2020-12-04 11:17 | Progress Note - Surgery ---
Subjective Time Seen by a Provider: 10:08 Subjective/Events-last exam Pt seen and examined, pain is controlled. Pt has decided to go home on hospice; no TPN and no TF. Review of Systems General: Fatigue Pulmonary: No Dyspnea, No Cough Cardiovascular: No: Chest Pain, Palpitations Gastrointestinal: Abdominal Pain; No: Nausea, Vomiting Musculoskeletal: back pain Objective Exam Vital Signs Date Time Temp Pulse Resp B/P (MAP) Pulse Ox O2 Delivery O2 Flow Rate FiO2 12/04/20 09:09 93 OxyMask 5.00 12/04/20 08:00 93 OxyMask 5.00 12/04/20 07:54 36.7 82 17 124/86 (99) 91 OxyMask 5.00 12/04/20 07:00 77 12/04/20 04:47 36.5 85 18 127/74 (91) 93 OxyMask 5.00 12/04/20 02:40 93 OxyMask 5.00 12/04/20 01:00 80 12/03/20 23:48 36.4 87 18 137/72 (93) 92 OxyMask 5.00 12/03/20 20:54 92 OxyMask 5.00 12/03/20 19:50 OxyMask 5.00 12/03/20 19:35 35.8 81 16 123/70 (87) 91 OxyMask 5.00 12/03/20 19:00 82 12/03/20 18:00 78 18 129/65 (86) 94 OxyMask 5.00 12/03/20 15:55 36.3 84 16 123/72 (89) 96 OxyMask 5.00 12/03/20 14:53 91 OxyMask 5.00 12/03/20 13:07 81 18 137/67 (90) 96 OxyMask 5.00 12/03/20 12:57 83 12/03/20 12:40 36.5 81 16 124/70 (88) 95 OxyMask 5.00 12/03/20 11:37 36.5 80 16 128/73 (91) 97 OxyMask 5.00 I & O 12/04/20 07:00 Intake Total 20 ml Output Total 1678 ml Balance -1658 ml Capillary Refill : Less Than 3 Seconds HEENT: PERRL/EOMI Respiratory: No Accessory Muscle Use, No Respiratory Distress, Decreased Breath Sounds Cardiovascular: Regular Rate, Rhythm, No Murmur Gastrointestinal: No distended, No guarding; other (ostomy in place over fistula with fecal material in bag) Extremity: Pedal Edema Neurologic/Psychiatric: Alert, Oriented x3 Results Lab Laboratory Tests 12/04/20 05:57: White Blood Count 11.9H, Red Blood Count 3.46L, Hemoglobin 8.3L, Hematocrit 27L, Mean Corpuscular Volume 79L, Mean Corpuscular Hemoglobin 24L, Mean Corpuscular Hemoglobin Concent 31L, Red Cell Distribution Width 16.2H, Platelet Count 317, Mean Platelet Volume 10.1, Sodium Level 135, Potassium Level 4.7, Chloride Level 99, Carbon Dioxide Level 31, Anion Gap 5, Blood Urea Nitrogen 25H, Creatinine 0.67, Estimat Glomerular Filtration Rate > 60, BUN/Creatinine Ratio 37, Glucose Level 111H, Calcium Level 8.3L, Corrected Calcium 9.7, Phosphorus Level 3.5, Magnesium Level 2.9H, Total Bilirubin 0.5, Aspartate Amino Transf (AST/SGOT) 56H , Alanine Aminotransferase (ALT/SGPT) 49, Alkaline Phosphatase 172H, Total Protein 6.6, Albumin 2.3L, Triglycerides Level 100 Microbiology 11/22/20 Blood Culture - Final, Complete Staph, Coag Neg (PROPERTY ASSESSMENT MONITOR) See Comments Assessment/Plan Assessment/Plan Assessment/Plan Metastatic Right Colon Adenocarcinoma Wound Dehiscence with Fecal drainage--enterocutaneous fistula Pt is going home on hospice. BEBE MARTIN DO December 04, 2020 11:17
[2020-12-04 12:36] VITALS: BP 152/75
[2020-12-04] MEDS ORDERED: HYOS0.1283 SL (12:38)
[2020-12-04] MEDS: SODIUM CHLORIDE IV SCH ×11 (15:58)
[2020-12-04] MEDS: SODIUM ACETATE IV SCH ×11 (15:58)
[2020-12-04] MEDS: [UNRECOGNIZED DRUG - OTHER] IV SCH ×11 (15:58)
[2020-12-04 16:00] VITALS: BP 127/68
--- NOTE | 2020-12-04 17:57 | Discharge Summary ---
Diagnosis/Chief Complaint Date of Admission November 22, 2020 at 16:38 Date of Discharge Discharge Date: December 04, 2020 Discharge Diagnosis 1. SBO--NG tube out, home on hospice with comfort care/pain control 2. HTN-stable 3. Right Colon Adenocarcinoma--Dr. Calvert discussed options/prognosis with patient, has decided on hospice 4. Hx. of CAD--stable 5. Wound Dehiscence with Fecal drainage--enterocutaneous fistula--DC TPN, home on hospice 6. Acute Respiratory Distress with bilateral pleural effusions--home on hospice with oxygen for comfort 7. Bilateral Pneumonia--DC abx, home on hospice 8. Anxiety--ativan intensol to use prn Discharge Summary Hospital Course Was the Problem List Reviewed?: Yes Hospital Course This is a 64 year old male with a know history of right sided colon cancer with metastasis who presented to the emergency room with small bowel obstruction. He was admitted with NG tube in place, IV antibiotics and pain control. He underwent a small bowel follow through the day after his admission but did not pass the contrast through by the following day. However, contrast had passed into his colon so discussion was had with the patient and his about proceeding with surgery or waiting to see if the contrast would continue to pass through. There was concern about another surgery and the healing from that prolonging his start of chemotherapy for his colon cancer. Three days after admission the top of his healed abdominal wall incision opened up with feces coming out of the opening. A CT scan with gastrograffin was done showing a enterocutaneous fistula. A ostomy bag was placed to this opening and surgery was once again discussed. The patient was hesitant about proceeding with surgery and wanted all opinions from primary care to oncology to surgery on which way to proceed. We did discuss going home with hospice as well and had palliative care come in to discuss hospice with the patient and his . The patient then had worsening respiratory status requiring oxygen up to 7 liters via mask. A CT scan of the lungs was ordered and showed bilateral pneumonia so he was restarted on antibiotics--maxipime. The CT scan also showed bilateral pleural effusions so he was given IV lasix and then continued on low dose IV lasix daily. TPN was started after the fistula. The patient did finally have a large bowel movement the day after the fistula opened up but had no further BMs or flatus after that. After talking with all specialties, the patient decided to forego surgery and proceed with going home on hospice. He did have worsening pain after this decision which was felt to be from worsening anxiety. He had been placed on a fentanyl patch with morphine IV prn but had to be switched to dilaudid 1mg every 2hrs by discharge. It was decided to send him home on a dilaudid TEACHER VISUALLY IMPAIRED for pain control. At the time of discharge, he is resting comfortably in bed and is anxious to get home. He will be discharged to home with [facility]--transport will be via EMS. Labs Laboratory Tests 12/02/20 05:36: Glucometer 148H 12/02/20 05:50: White Blood Count 13.9H, Red Blood Count 3.87L, Hemoglobin 9.1L, Hematocrit 30L, Mean Corpuscular Volume 78L, Mean Corpuscular Hemoglobin 24L, Mean Corpuscular Hemoglobin Concent 30L, Red Cell Distribution Width 15.9H, Blood Urea Nitrogen 23H, Glucose Level 132H, Calcium Level 8.4L, Aspartate Amino Transf (AST/SGOT) 56H, Alkaline Phosphatase 139H, Albumin 2.3L 12/03/20 05:45: Glucometer 130H 12/04/20 05:57: White Blood Count 11.9H, Red Blood Count 3.46L, Hemoglobin 8.3L, Hematocrit 27L, Mean Corpuscular Volume 79L, Mean Corpuscular Hemoglobin 24L, Mean Corpuscular Hemoglobin Concent 31L, Red Cell Distribution Width 16.2H, Blood Urea Nitrogen 25H, Glucose Level 111H, Calcium Level 8.3L, Aspartate Amino Transf (AST/SGOT) 56H, Alkaline Phosphatase 172H, Albumin 2.3L, Magnesium Level 2.9H Procedures None. Discharge Physical Examination Allergies: Coded Allergies: Penicillins (Verified Allergy, Mild, Has received cephalosporins w/o issue, 11/21/20) Vitals & I&Os Vital Signs Date Time Temp Pulse Resp B/P (MAP) Pulse Ox O2 Delivery O2 Flow Rate FiO2 12/04/20 16:00 35.9 80 16 127/68 (87) 92 OxyMask 5.00 General Appearance: No Acute Distress Respiratory: Clear to Auscultation Cardiovascular: Regular Rate Abdominal: Other (distended with abnormal bowel sounds and ostomy bag over fistula) Extremities: No Clubbing, No Cyanosis, No Edema Psych/Mental Status: Other (groggy) Discharge Home Medications Reviewed and agree with Discharge Medication list on patient's Discharge Instruction sheet Instructions to Patient/Family Please see electronic discharge instructions given to patient. YENI RUVALCABA DO December 04, 2020 17:57
== END 2020-12-04 19:30 | disposition hospice, home (50) | DRG 388 ==
LOC: EDUNIT# 12:25 → ER 12:29 → 4TH 16:38
PROVIDERS: ADMIT Family Medicine; ATTEND Family Medicine
DX: K56.600 Partial intestinal obstruction, unspecified as to cause (principal); J18.9 Pneumonia, unspecified organism; C78.7 Secondary malignant neoplasm of liver and intrahepatic bile duct; C78.6 Secondary malignant neoplasm of retroperitoneum and peritoneum; K63.2 Fistula of intestine; J90 Pleural effusion, not elsewhere classified; Z86.16 Personal history of COVID-19; J43.9 Emphysema, unspecified; I25.10 Atherosclerotic heart disease of native coronary artery without angina pectoris; Z20.822 Contact with and (suspected) exposure to COVID-19; E78.00 Pure hypercholesterolemia, unspecified; I10 Essential (primary) hypertension; K21.9 Gastro-esophageal reflux disease without esophagitis; K57.90 Diverticulosis of intestine, part unspecified, without perforation or abscess without bleeding; M19.90 Unspecified osteoarthritis, unspecified site; E03.9 Hypothyroidism, unspecified; E11.9 Type 2 diabetes mellitus without complications; Z66 Do not resuscitate; Z96.612 Presence of left artificial shoulder joint; Z96.611 Presence of right artificial shoulder joint; K76.89 Other specified diseases of liver; K66.8 Other specified disorders of peritoneum; F41.9 Anxiety disorder, unspecified; R06.03 Acute respiratory distress; I25.2 Old myocardial infarction; Z86.73 Personal history of transient ischemic attack (TIA), and cerebral infarction without residual deficits; Z85.038 Personal history of other malignant neoplasm of large intestine; Z90.49 Acquired absence of other specified parts of digestive tract; Z88.0 Allergy status to penicillin; Z79.82 Long term (current) use of aspirin; Z79.899 Other long term (current) drug therapy; Z87.891 Personal history of nicotine dependence; Z95.1 Presence of aortocoronary bypass graft; Z95.5 Presence of coronary angioplasty implant and graft
CPT/HCPCS: 36415; 71045; 71046; 71250; 74018; 74176; 74177; 74250; 80053; 81000; 82947; 83605; 83690; 83735; 84100; 84134; 84478; 85007; 85025; 85027; 85610; 85730; 86141; 87040; 87635; 94640; 94760; 96361; 96374; 96375